=== PATIENT | male | born 1935 | race African-American/Black ===

== ENCOUNTER 2016-04-12 12:54 | Inpatient (IN) | payer MEDICARE, MEDICAID ==
[~2016-04-12] VITALS: Ht 182.9 cm; Wt 81.6 kg
[~2016-04-12 12:54] MED LIST: ALLOPURINOL100 M1 ORAL; ALLOPURINOL300 M1 ORAL; AMANTADINE100 M2 ORAL; AMIODARONE HCL200 MG ORAL; AMPICILLIN250 MG ORAL; ATIVAN0.5 MG ORAL; ATIVAN2 MG/1 ML IV; ATORVASTATIN CA40 MG ORAL; CARDIZEM30 MG ORAL; COUMADIN5 MG ORAL; COUMADIN6 MG ORAL; DIGOXIN0.125 MG/2 ORAL; DILTIAZEM HCL90 MG PO; DOCU SOFT100 MG ORAL; HYDROCHLOROTH12.5 M2 ORAL; KEPPRA1000 MG ORAL; LORAZEPAM2 MG/1 M3 IV; METOPROLOL TAR100 MG ORAL; METOPROLOL TART25 MG ORAL; NITRO-BID1 GM TOPIC; PROTONIX40 MG ORAL; QUETIAPINE FUMA25 MG ORAL; RANITIDINE HCL150 MG ORAL; ROBITUSSIN100 MG/52 ORAL; SENNA8.6 M3 PO; SEROQUEL25 MG ORAL; SYNTHROID100 MCG ORAL; SYNTHROID25 MCG ORAL; ULTRAM50 MG ORAL; VITAMIN D250000 UNI1 ORAL; WARFARIN SODIU7.5 MG ORAL; ZYPREXA10 MG ORAL
--- NOTE | 2016-04-12 13:09 | Emergency Room Report ---
History of Present Illness General Source: Patient Present Illness HPI Patient is a 80-year-old male [facility] in [facility] after increased productive cough. The patient gradual onset of symptoms. Patient was noted to have a prior history of CVA. He was sent in by prison. He reports having gradual onset of symptoms which the subsequently worsened. Allergies: Coded Allergies: MARYANA INHIBITORS (Unverified Allergy, Unknown, 01/31/14) ARB-ANGIOTENSIN RECEPTOR ANTAGONIST (Unverified Allergy, Unknown, 01/31/14) Patient History Past Medical History: see triage record Reviewed Nursing Documentation: PMH: Agreed, PSxH: Agreed Nursing Documentation-PMH Hx Cardiac Problems: Yes - CVA, A. fib. HTN, CHF Hx Hypertension: Yes Hx Cancer: No Hx Gastrointestinal Problems: No Hx Neurological Problems: Yes Hx Cerebrovascular Accident: Yes Hx Dementia: Yes Hx Seizures: Yes Hx Weakness: Yes Review of Systems All Other Systems: limited - by mental status Physical Exam General Appearance: alert, other - GCS 15, [id number], Chronically Ill ENT: hearing 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, other - dysarthric Neck: normal inspection, limited range of motion Respiratory: rhonchi Cardiovascular #1: normal peripheral pulses, regular rate, rhythm Gastrointestinal: normal bowel sounds, non tender, soft, no mass Musculoskeletal: back normal, digits/nails normal Neurologic: alert, oriented x3, responsive, motor weakness - right upper extremity Psychiatric: normal inspection, judgement/insight normal Skin: normal inspection Medical Decision Making Diagnostic Impression: Primary Impression: Pneumonia Additional Impressions: Afib Convulsive generalized seizure disorder ER Course Patient presented for shortness of breath.Differential included but was not limited to anemia, pneumonia, pneumothorax, myocardial infarction, pericardial effusion, congestive heart failure, acidosis. Because of complexity of patient' s case laboratory testing and imaging studies were ordered.A chest x-ray of the facility was noted for bilateral infiltrates. Patient was noted to have prior history of atrial fibrillation was taking digoxin.Laboratory testing was notable for normal white blood count was elevated at the B. type naturetic peptide. The patient appears to have clinical signs of pneumonia. He was started on IV antibiotics.Dr. Geiger was contacted for inpatient management due to need for inpatient monitoring and treatment. Labs Test 04/12/16 13:45 White Blood Count 8.1 K/UL (4.8-10.8) Red Blood Count 4.00 M/UL (4.70-6.10) Hemoglobin 11.1 G/DL (14.2-18.0) Hematocrit 35.3 % (42.0-52.0) Mean Corpuscular Volume 88 FL (80-99) Mean Corpuscular Hemoglobin 27.8 PG (27.0-31.0) Mean Corpuscular Hemoglobin Concent 31.5 G/DL (32.0-36.0) Red Cell Distribution Width 16.0 % (11.6-14.8) Platelet Count 164 K/UL (150-450) Mean Platelet Volume 8.2 FL (6.5-10.1) Neutrophils (%) (Auto) 59.3 % (45.0-75.0) Lymphocytes (%) (Auto) 21.4 % (20.0-45.0) Monocytes (%) (Auto) 16.1 % (1.0-10.0) Eosinophils (%) (Auto) 2.5 % (0.0-3.0) Basophils (%) (Auto) 0.8 % (0.0-2.0) Urine Color Pale yellow Urine Appearance Clear Urine pH 6 (4.5-8.0) Urine Specific [place] 1.015 (1.005-1.035) Urine Protein 2+ (NEGATIVE) Urine Glucose (UA) Negative (NEGATIVE) Urine Ketones Negative (NEGATIVE) Urine Occult Blood 2+ (NEGATIVE) Urine Nitrite Negative (NEGATIVE) Urine Bilirubin Negative (NEGATIVE) Urine Urobilinogen Normal MG/DL (0.0-1.0) Urine Leukocyte Esterase Negative (NEGATIVE) Chest X-Ray Diagnostic Results EP Interpretation: No Findings: no effusion, no pneumothorax, other - bilateral vascular congestion, basilar infiltrate Status: unchanged Disposition: ADMITTED INPATIENT Condition: Herbie Arreguin Apr 12, 2016 13:09
[2016-04-12] MEDS ORDERED: Ampicillin/Sulbactam Sod 3 GM in NS 100 ML IV SCH (13:15)
[2016-04-12] MEDS ORDERED: Unasyn 3gm Inj ONE (13:19)
[2016-04-12 13:48] VITALS: BP 145/86
[2016-04-12 14:01] LABS: BASOPHILS % (AUTO) 0.8 % (0.0-2.0); EOSINOPHILS % (AUTO) 2.5 % (0.0-3.0); LYMPHOCYTES % (AUTO) 21.4 % (20.0-45.0); MEAN CORPUSCULAR HEMOGLOBIN 27.8 PG (27.0-31.0); MEAN CORPUSCULAR HGB CONC 31.5 G/DL (32.0-36.0); MEAN CORPUSCULAR VOLUME 88 FL (80-99); MEAN PLATELET VOLUME 8.2 FL (6.5-10.1); MONOCYTES % (AUTO) 16.1 % (1.0-10.0); NEUTROPHILS % (AUTO) 59.3 % (45.0-75.0); PLATELET COUNT 164 K/UL (150-450); WHITE BLOOD COUNT 8.1 K/UL (4.8-10.8)
[2016-04-12 14:05] LABS: APPEARANCE,URINE CLEAR; KETONES,URINE NEGATIVE (NEGATIVE); LEUKOCYTE ESTERASE ,URINE NEGATIVE (NEGATIVE); NITRITE,URINE NEGATIVE (NEGATIVE); PH,URINE 6 (4.5-8.0); PROTEIN,URINE 2+ (NEGATIVE); UROBILINOGEN,URINE NORMAL MG/DL (0.0-1.0)
[2016-04-12] MEDS ORDERED: NEURONTIN100 MG ORAL (14:16)
[2016-04-12] MEDS ORDERED: GUAIFENESIN-CO118 M1 ORAL (14:16)
[2016-04-12] MEDS ORDERED: NORCO 5-325 TA1 EAC1 ORAL (14:16)
[2016-04-12] MEDS ORDERED: BACTROBAN CR1 APPLIC TOPIC (14:16)
[2016-04-12 14:20] LABS: BACTERIA,URINE OCCASIONAL /HPF; SQUAMOUS EPITHELIAL CELL,UR OCCASIONAL /LPF (NONE/OCC); WBC,URINE 0-2 /HPF (0 - 0)
--- NOTE | 2016-04-12 14:27 | Diagnostic Imaging Report ---
Indications: Shortness of breath Technique: Portal AP chest Findings: Comparison: 05/05/2015 Cardiac silhouette remains enlarged. Mild pulmonary vascular redistribution and bilateral interstitial prominence persists, decreased. No pleural abnormalities. IMPRESSION: Bilateral congestive changes, decreased from previous exam
[2016-04-12 14:28] LABS: TROPONIN I < 0.30 ng/mL (<=0.30)
[2016-04-12 14:29] LABS: INR 3.2 (0.9-1.1)
[2016-04-12 14:32] LABS: ALANINE AMINOTRANSFERASE 12 U/L (3-41); ALBUMIN/GLOBULIN RATIO 0.8 (1.0-2.7); ANION GAP 16 (5-15); ASPARTATE AMINO TRANSFERASE 18 U/L (5-40); CALCIUM 8.9 mg/dL (8.6-10.2); CARBON DIOXIDE 21 mEQ/L (20-30); CHLORIDE 103 mEQ/L (98-107); CREATININE 1.7 mg/dL (0.7-1.2); HEMOLYSIS 3; POTASSIUM 4.6 mEQ/L (3.4-4.9); SODIUM 140 mEQ/L (135-145)
[2016-04-12 14:42] LABS: CKMB 2.9 ng/mL (< 6.7)
[2016-04-12 15:16] VITALS: BP 143/77
--- NOTE | 2016-04-12 15:27 | Consultation ---
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 Will follow ES YAP Apr 12, 2016 15:27
[2016-04-12] MEDS ORDERED: Mylanta II UD 30ml ORAL PRN (15:45)
[2016-04-12] MEDS ORDERED: DuoNeb 0.5-3(2.5)mg/3ml neb HHN PRN (15:45)
[2016-04-12] MEDS ORDERED: traMADol 50mg tab ORAL PRN (15:45)
[2016-04-12] MEDS ORDERED: Miralax 17gm pkt ORAL PRN (15:45)
[2016-04-12] MEDS ORDERED: Nitroglycerin Subl 0.4mg tab (Bottle Of 25) SL PRN (15:45)
--- NOTE | 2016-04-12 15:45 | Consultation ---
History of Present Illness General Date patient seen: Apr 12, 2016 Chief Complaint: General Complaint Referring physician: dr Geiger Reason for Consultation: dyspnea Present Illness HPI 80-year-old male with hx of Dementia, CVA, end stage CHF with EF of 35% and pulmonary hypertension, [facility] resident brought [facility] from [facility] with productive cough. The patient had gradual onset of symptoms. Pt was diagnosed to have pneumonia and admitted for further evaluation. He is admitted to telemetry because of his chronic afib and cardiomyopathy Allergies: Coded Allergies: MARYANA INHIBITORS (Unverified Allergy, Unknown, 01/31/14) ARB-ANGIOTENSIN RECEPTOR ANTAGONIST (Unverified Allergy, Unknown, 01/31/14) Medication History Scheduled Allopurinol* (Allopurinol*), 100 MG ORAL DAILY, (Reported) Digoxin* (Digoxin*), 0.125 MG ORAL DAILY, (Reported) Diltiazem Hcl (Diltiazem Hcl), 90 MG PO Q8HR, (Reported) Docusate Sodium (Docu Soft*), 100 MG ORAL TID, (Reported) Ergocalciferol (Vitamin D2)* (Vitamin D*), 50,000 UNIT ORAL ONCE A WEEK, ( Reported) Gabapentin* (Neurontin*), 300 MG ORAL THREE TIMES A DAY, (Reported) Levetiracetam (Keppra), 1,000 MG ORAL Q12HR, (Reported) Levothyroxine Sodium* (Synthroid*), 100 MCG ORAL DAILY, (Reported) Metoprolol Tartrate* (Metoprolol Tartrate*), 25 MG ORAL BID, (Reported) Mupirocin Calcium (Bactroban), 1 APPLIC TOPIC THREE TIMES A DAY, (Reported) Pantoprazole* (Protonix*), 40 MG ORAL DAILY, (Reported) Warfarin Sod* (Coumadin*), 5 MG ORAL DAILY, (Reported) Scheduled PRN Guaifenesin/Codeine Phos* (Robitussin Ac*), 10 ML ORAL Q6H PRN for For Cough, ( Reported) Hydrocodone Bit/Acetaminophen 5-325* ([place] 5-325 Tablet*), 1 TAB ORAL Q8HR PRN for For Pain, (Reported) Lorazepam* (Ativan*), 1 MG IV Q3HR PRN for Agitation, (Reported) Quetiapine Fumarate* (Seroquel*), 25 MG ORAL Q6HR PRN for Agitation, (Reported) Tramadol Hcl (Ultram*), 25 MG ORAL TID PRN for For Pain, (Reported) Patient History Healthcare decision maker Resuscitation status Advanced Directive on File Past Medical/Surgical History Past Medical/Surgical History: (1) Afib (2) Convulsive generalized seizure disorder (3) Atrial fibrillation with RVR (4) CVA (cerebral infarction) (5) Cardiomyopathy (6) Arterial ischemic stroke, MCA (middle cerebral artery), left, chronic (7) Status epilepticus, generalized convulsive (8) Dementia, vascular Review of Systems All Other Systems: negative except mentioned in HPI Physical Exam General Appearance: WD/WN HEENT: normocephalic, atraumatic Neck: non-tender, normal alignment Respiratory/Chest: chest wall non-tender, rhonchi - left, rhonchi - right Cardiovascular/Chest: normal peripheral pulses, normal rate Abdomen: normal bowel sounds, non tender Extremities: normal range of motion, non-tender Last 24 Hour Vital Signs Date Time Temp Pulse Resp B/P Pulse Ox O2 Delivery O2 Flow Rate FiO2 04/12/16 15:16 98.0 92 21 143/77 100 Room Air 04/12/16 13:48 99.3 88 16 145/86 99 Room Air 04/12/16 13:01 99.3 76 16 140/86 99 Room Air Laboratory Tests Test 04/12/16 13:45 White Blood Count 8.1 K/UL (4.8-10.8) Red Blood Count 4.00 M/UL (4.70-6.10) L Hemoglobin 11.1 G/DL (14.2-18.0) L Hematocrit 35.3 % (42.0-52.0) L Mean Corpuscular Volume 88 FL (80-99) Mean Corpuscular Hemoglobin 27.8 PG (27.0-31.0) Mean Corpuscular Hemoglobin Concent 31.5 G/DL (32.0-36.0) L Red Cell Distribution Width 16.0 % (11.6-14.8) H Platelet Count 164 K/UL (150-450) Mean Platelet Volume 8.2 FL (6.5-10.1) Neutrophils (%) (Auto) 59.3 % (45.0-75.0) Lymphocytes (%) (Auto) 21.4 % (20.0-45.0) Monocytes (%) (Auto) 16.1 % (1.0-10.0) H Eosinophils (%) (Auto) 2.5 % (0.0-3.0) Basophils (%) (Auto) 0.8 % (0.0-2.0) Prothrombin Time 34.0 SEC (9.30-11.50) H Prothromb Time International Ratio 3.2 (0.9-1.1) H Activated Partial Thromboplast Time 58 SEC (23-33) H Urine Color Pale yellow Urine Appearance Clear Urine pH 6 (4.5-8.0) Urine Specific [place] 1.015 (1.005-1.035) Urine Protein 2+ (NEGATIVE) H Urine Glucose (UA) Negative (NEGATIVE) Urine Ketones Negative (NEGATIVE) Urine Occult Blood 2+ (NEGATIVE) H Urine Nitrite Negative (NEGATIVE) Urine Bilirubin Negative (NEGATIVE) Urine Urobilinogen Normal MG/DL (0.0-1.0) Urine Leukocyte Esterase Negative (NEGATIVE) Urine RBC 2-4 /HPF (0 - 0) H Urine WBC 0-2 /HPF (0 - 0) Urine Squamous Epithelial Cells Occasional /LPF Urine Bacteria Occasional /HPF (NONE) Sodium Level 140 mEQ/L (135-145) Potassium Level 4.6 mEQ/L (3.4-4.9) Chloride Level 103 mEQ/L (98-107) Carbon Dioxide Level 21 mEQ/L (20-30) Anion Gap 16 (5-15) H Blood Urea Nitrogen 26 mg/dL (7-23) H Creatinine 1.7 mg/dL (0.7-1.2) H Estimat Glomerular Filtration Rate mL/min (>60) Glucose Level 95 mg/dL (74-106) Lactic Acid Level 0.90 mmol/L (0.66-2.22) Calcium Level 8.9 mg/dL (8.6-10.2) Total Bilirubin 0.4 mg/dL (0.0-1.2) Aspartate Amino Transf (AST/SGOT) 18 U/L (5-40) Alanine Aminotransferase (ALT/SGPT) 12 U/L (3-41) Alkaline Phosphatase 87 U/L (40-129) Total Creatine Kinase 244 U/L (38-174) H Creatine Kinase MB 2.9 ng/mL (< 6.7) Creatine Kinase MB Relative Index 1.1 Troponin I < 0.30 ng/mL (<=0.30) Pro-B-Type Natriuretic Peptide 1796 pg/mL (0-450) H Total Protein 8.0 g/dL (6.6-8.7) Albumin 3.6 g/dL (3.5-5.2) Globulin 4.4 g/dL Albumin/Globulin Ratio 0.8 (1.0-2.7) L Digoxin Level 0.7 ng/mL (0.5-2.0) Microbiology Date/Time Source Procedure Growth Status 04/12/16 13:45 Nasal Nares Influenza Types A,B Antigen (GABINO) - Final Complete Height (Feet): 6 Weight (Pounds): 180 Medications Current Medications Medications (Trade) Dose Ordered Sig/Con Route PRN Reason Start Time Stop Time Status Last Admin Dose Admin Ampicillin Sodium/ Sulbactam Sodium/ Sodium Chloride (Unasyn/Sodium Chloride 100ml bag) 100 ml @ 200 mls/hr Q6H IV 04/12/16 13:15 04/13/16 13:14 04/12/16 13:39 Assessment/Plan Problem List: (1) Pneumonia ICD Codes: J18.9 - Pneumonia, unspecified organism SNOMED: 043919160 (2) Cardiomyopathy ICD Codes: I42.9 - Cardiomyopathy SNOMED: 33151898 (3) Atrial fibrillation with RVR ICD Codes: I48.91 - Unspecified atrial fibrillation SNOMED: 247036673569753 (4) Dementia, vascular ICD Codes: F01.50 - Vascular dementia without behavioral disturbance SNOMED: 953247236 (5) CVA (cerebral infarction) ICD Codes: I63.9 - Cerebral infarction, unspecified SNOMED: 484353796 Assessment/Plan Respiratory treatment holman cultures sputum for c/s cardiac monitoring aspiration precaution cardiac evaluation. check electrolytes chest pt titrate fio2 to sat of 92% [place] RENAE Apr 12, 2016 15:45
[2016-04-12 16:50] VITALS: BP 145/90
[2016-04-12] MEDS: Metoprolol 25mg tab ORAL SCH (18:46)
[2016-04-12] MEDS: Vancomycin 1250mg/D5W 250ml IVPB SCH ×2 (19:27)
[2016-04-12 20:00] VITALS: BP 156/90
--- NOTE | 2016-04-12 21:28 | Consultation ---
DATE OF CONSULTATION: 04/12/2016 INFECTIOUS DISEASE CONSULTATION REQUESTING PHYSICIAN: Ondina Geiger M.D. REASON FOR CONSULTATION: Pneumonia. HISTORY OF PRESENT ILLNESS: This is a 80-year-old male, [facility] resident with multiple medical problems, admitted on 04/12/2016 with cough. The patient states cough is productive of white sputum. Denies fevers or chills. Influenza screen is negative. Chest x-ray shows bilateral congestive changes. He is afebrile without leukocytosis. Blood cultures are pending. BNP is elevated to 1796 and troponin is negative x1. ID now consulted to assist in management. PAST MEDICAL HISTORY: 1. Hypertension. 2. Cardiomyopathy. 3. Vascular dementia. 4. JUANA positive. 5. Chronic kidney disease, stage 3. 6. Seizure disorder. 7. Atrial fibrillation. 8. History of stroke. 9. Anemia of chronic disease. PAST SURGICAL HISTORY: None. SOCIAL HISTORY: The patient is a resident in a penitentiary. He has family involved in his care. No active tobacco, alcohol, or illicit drug abuse. FAMILY HISTORY: Noncontributory. ALLERGIES: 1. MARYANA inhibitors. 2. Angiotensin receptor blockers. MEDICATIONS: Status post Unasyn x1. REVIEW OF SYSTEMS: As per history of present illness. Ten systems reviewed. All pertinent positives and negatives noted. PHYSICAL EXAMINATION: VITAL SIGNS: Maximum temperature 99.3, blood pressure 145/86, heart rate in the 80s, respiratory rate 16, and saturating 99% on room air. GENERAL: No apparent distress, nontoxic appearing. HEENT: Poor dentition. CARDIOVASCULAR: Regular rate and rhythm. No murmurs. PULMONARY: Bilateral crackles. ABDOMEN: Bowel sounds present. Soft, nondistended, and nontender. EXTREMITIES: Bilateral lower extremity edema. LABORATORY DATA: White blood cell count 8.1, hemoglobin 11.1, platelets 164,000. Sodium 140, potassium 4.6, chloride 103, bicarbonate 21, BUN 26, and creatinine 1.7. Lactic acid 0.9. Troponin negative x1. Creatine kinase 244. BNP 1796. Liver function tests within normal limits. Urinalysis negative. Digoxin level within normal limits. MICROBIOLOGY: 1. On 04/12/2016 influenza screen negative. 2. On 04/12/2016 blood culture pending. IMAGING: On 04/12/2016 chest x-ray bilateral congestive changes. ASSESSMENT: 1. Suspect acute on chronic systolic and diastolic congestive heart failure exacerbation more likely than healthcare associated or aspiration pneumonia. He has known nonischemic cardiomyopathy and a chest x-ray shows bilateral congestive changes. Troponin is negative x1. BNP is elevated. Influenza screen is negative. 2. Afebrile without leukocytosis. 3. Vascular dementia and history of stroke. 4. Chronic kidney disease stage 3. 5. Seizure disorder. 6. Atrial fibrillation. 7. History of methicillin-resistant Staphylococcus aureus colonization. 8. Previous DNR. PLAN: 1. Start empiric Zosyn day #1 for now . 2. Diuresis and consider echocardiogram, monitor ins and outs. 3. Monitoring BNP. 4. Follow up cultures. 5. Monitor CBC and temperatures. 6. Monitor BMP. 7. Monitor chest x-ray. Thank you. We will follow. Pankaj Larose M.D. DR: Berna JOB#: [id number] CC: Ondina Geiger M.D.; Fax#: [phone] Davila M.D; Fax#: [phone]
--- NOTE | 2016-04-12 21:47 | Consultation ---
History of Present Illness General Date patient seen: Apr 12, 2015 Chief Complaint: General Complaint Referring physician: dr Geiger Reason for Consultation: dyspnea Present Illness HPI Patient is a 80-year-old male pmhx HTN, CVA and is a [facility] resident. The patient was noticed to have intractable coughing with thick discolored sputum production. Initial radiographic images revealed congestive changes in both lungs. The patient has been initiated on O2 therapy and aspiration precautions are being taken in the context of the patients advanced age and comorbidities. History has been compiled by discussion with the patient internists, unfortunantly patient cannot provide any meaningfull history at this time. Allergies: Coded Allergies: MARYANA INHIBITORS (Unverified Allergy, Unknown, 01/31/14) ARB-ANGIOTENSIN RECEPTOR ANTAGONIST (Unverified Allergy, Unknown, 01/31/14) Medication History Scheduled Allopurinol* (Allopurinol*), 100 MG ORAL DAILY, (Reported) Digoxin* (Digoxin*), 0.125 MG ORAL DAILY, (Reported) Diltiazem Hcl (Diltiazem Hcl), 90 MG PO Q8HR, (Reported) Docusate Sodium (Docu Soft*), 100 MG ORAL TID, (Reported) Ergocalciferol (Vitamin D2)* (Vitamin D*), 50,000 UNIT ORAL ONCE A WEEK, ( Reported) Gabapentin* (Neurontin*), 300 MG ORAL THREE TIMES A DAY, (Reported) Levetiracetam (Keppra), 1,000 MG ORAL Q12HR, (Reported) Levothyroxine Sodium* (Synthroid*), 100 MCG ORAL DAILY, (Reported) Metoprolol Tartrate* (Metoprolol Tartrate*), 25 MG ORAL BID, (Reported) Mupirocin Calcium (Bactroban), 1 APPLIC TOPIC THREE TIMES A DAY, (Reported) Pantoprazole* (Protonix*), 40 MG ORAL DAILY, (Reported) Warfarin Sod* (Coumadin*), 5 MG ORAL DAILY, (Reported) Scheduled PRN Guaifenesin/Codeine Phos* (Robitussin Ac*), 10 ML ORAL Q6H PRN for For Cough, ( Reported) Hydrocodone Bit/Acetaminophen 5-325* ([place] 5-325 Tablet*), 1 TAB ORAL Q8HR PRN for For Pain, (Reported) Lorazepam* (Ativan*), 1 MG IV Q3HR PRN for Agitation, (Reported) Quetiapine Fumarate* (Seroquel*), 25 MG ORAL Q6HR PRN for Agitation, (Reported) Tramadol Hcl (Ultram*), 25 MG ORAL TID PRN for For Pain, (Reported) Patient History Healthcare decision maker Resuscitation status Full Code Advanced Directive on File Review of Systems Constitutional: Reports: chills, fever, malaise, sweats, weakness Respiratory: Reports: HOWARD, cough, shortness of breath, sputum, wheezing Physical Exam General Appearance: no apparent distress, lethargic Lines, tubes and drains: peripheral HEENT: normocephalic, atraumatic, anicteric, PERRL Neck: non-tender, normal alignment, supple Respiratory/Chest: chest wall non-tender, rhonchi - bilaterally, expiratory wheezing Breasts: no masses Cardiovascular/Chest: normal peripheral pulses, normal rate, regular rhythm, no JVD Abdomen: normal bowel sounds, non tender, soft, no organomegaly, no mass Genitourinary/Rectal: normal genital exam, normal rectal exam Extremities: normal range of motion, non-tender, normal inspection, no calf tenderness Skin Exam: normal pigmentation, warm/dry Neurologic: big data lead II-XII 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, no motor/sensory deficits Last 24 Hour Vital Signs Date Time Temp Pulse Resp B/P Pulse Ox O2 Delivery O2 Flow Rate FiO2 04/12/16 20:00 98.2 82 20 156/90 98 Room Air 04/12/16 18:46 78 145/90 04/12/16 16:50 98.2 78 20 145/90 98 Room Air 04/12/16 16:25 98.0 88 21 143/77 100 Room Air 04/12/16 15:16 98.0 92 21 143/77 100 Room Air 04/12/16 13:48 99.3 88 16 145/86 99 Room Air 04/12/16 13:01 99.3 76 16 140/86 99 Room Air Laboratory Tests Test 04/12/16 13:45 White Blood Count 8.1 K/UL (4.8-10.8) Red Blood Count 4.00 M/UL (4.70-6.10) L Hemoglobin 11.1 G/DL (14.2-18.0) L Hematocrit 35.3 % (42.0-52.0) L Mean Corpuscular Volume 88 FL (80-99) Mean Corpuscular Hemoglobin 27.8 PG (27.0-31.0) Mean Corpuscular Hemoglobin Concent 31.5 G/DL (32.0-36.0) L Red Cell Distribution Width 16.0 % (11.6-14.8) H Platelet Count 164 K/UL (150-450) Mean Platelet Volume 8.2 FL (6.5-10.1) Neutrophils (%) (Auto) 59.3 % (45.0-75.0) Lymphocytes (%) (Auto) 21.4 % (20.0-45.0) Monocytes (%) (Auto) 16.1 % (1.0-10.0) H Eosinophils (%) (Auto) 2.5 % (0.0-3.0) Basophils (%) (Auto) 0.8 % (0.0-2.0) Prothrombin Time 34.0 SEC (9.30-11.50) H Prothromb Time International Ratio 3.2 (0.9-1.1) H Activated Partial Thromboplast Time 58 SEC (23-33) H Urine Color Pale yellow Urine Appearance Clear Urine pH 6 (4.5-8.0) Urine Specific [place] 1.015 (1.005-1.035) Urine Protein 2+ (NEGATIVE) H Urine Glucose (UA) Negative (NEGATIVE) Urine Ketones Negative (NEGATIVE) Urine Occult Blood 2+ (NEGATIVE) H Urine Nitrite Negative (NEGATIVE) Urine Bilirubin Negative (NEGATIVE) Urine Urobilinogen Normal MG/DL (0.0-1.0) Urine Leukocyte Esterase Negative (NEGATIVE) Urine RBC 2-4 /HPF (0 - 0) H Urine WBC 0-2 /HPF (0 - 0) Urine Squamous Epithelial Cells Occasional /LPF Urine Bacteria Occasional /HPF (NONE) Sodium Level 140 mEQ/L (135-145) Potassium Level 4.6 mEQ/L (3.4-4.9) Chloride Level 103 mEQ/L (98-107) Carbon Dioxide Level 21 mEQ/L (20-30) Anion Gap 16 (5-15) H Blood Urea Nitrogen 26 mg/dL (7-23) H Creatinine 1.7 mg/dL (0.7-1.2) H Estimat Glomerular Filtration Rate mL/min (>60) Glucose Level 95 mg/dL (74-106) Lactic Acid Level 0.90 mmol/L (0.66-2.22) Calcium Level 8.9 mg/dL (8.6-10.2) Total Bilirubin 0.4 mg/dL (0.0-1.2) Aspartate Amino Transf (AST/SGOT) 18 U/L (5-40) Alanine Aminotransferase (ALT/SGPT) 12 U/L (3-41) Alkaline Phosphatase 87 U/L (40-129) Total Creatine Kinase 244 U/L (38-174) H Creatine Kinase MB 2.9 ng/mL (< 6.7) Creatine Kinase MB Relative Index 1.1 Troponin I < 0.30 ng/mL (<=0.30) Pro-B-Type Natriuretic Peptide 1796 pg/mL (0-450) H Total Protein 8.0 g/dL (6.6-8.7) Albumin 3.6 g/dL (3.5-5.2) Globulin 4.4 g/dL Albumin/Globulin Ratio 0.8 (1.0-2.7) L Digoxin Level 0.7 ng/mL (0.5-2.0) Urine Legionella Antigen Pending Microbiology Date/Time Source Procedure Growth Status 04/12/16 13:45 Nasal Nares Influenza Types A,B Antigen (GABINO) - Final Complete Height (Feet): 6 Height (Inches): 0.00 Weight (Pounds): 180 Medications Current Medications Medications (Trade) Dose Ordered Sig/Con Route PRN Reason Start Time Stop Time Status Last Admin Dose Admin Acetaminophen (Tylenol) 650 mg Q4H PRN ORAL fever 04/12/16 15:45 05/12/16 15:44 Al Hydroxide/Mg Hydroxide (Mylanta II) 30 ml Q6H PRN ORAL dyspepsia 04/12/16 15:45 05/12/16 15:44 Albuterol/ Ipratropium 3 ml 3 ml EVERY 4 HOURS PRN HHN Shortness of Breath 04/12/16 15:45 04/17/16 15:44 Allopurinol (Zyloprim) 100 mg DAILY ORAL 04/13/16 09:00 05/13/16 08:59 Cefepime HCl/ Dextrose (Maxipime/D5W 50ml) 50 ml @ 100 mls/hr Q24H IV 04/12/16 21:00 04/19/16 20:59 Digoxin (Lanoxin) 0.125 mg DAILY ORAL 04/13/16 09:00 05/13/16 08:59 Diltiazem HCl (Cardizem) 90 mg Q8HR ORAL 04/12/16 22:00 05/12/16 21:59 Heparin Sodium (Porcine) (Heparin 5000 units/ml) 5,000 units EVERY 12 HOURS SUBQ 04/12/16 21:00 05/12/16 20:59 Levetiracetam (Keppra) 1,000 mg Q12HR ORAL 04/12/16 21:00 05/12/16 20:59 Levothyroxine Sodium (Synthroid) 100 mcg DAILY@0630 ORAL 04/13/16 06:30 05/13/16 06:29 Metoprolol Tartrate (Lopressor) 25 mg BID ORAL 04/12/16 18:00 05/12/16 17:59 04/12/16 18:46 Nitroglycerin (Ntg) 0.4 mg Q5M PRN SL Prn Chest Pain 04/12/16 15:45 05/12/16 15:44 Ondansetron HCl (Zofran) 4 mg Q6H PRN IVP Nausea & Vomiting 04/12/16 15:45 05/12/16 15:44 Polyethylene Glycol (Miralax) 17 gm DAILYPRN PRN ORAL Constipation 04/12/16 15:45 05/12/16 15:44 Promethazine HCl/ Codeine (Phenergan with Codeine) 5 ml Q4H PRN ORAL For Cough 04/12/16 15:45 05/12/16 15:44 Quetiapine Fumarate (SEROquel) 25 mg Q6HR PRN ORAL Agitation 04/12/16 15:45 05/12/16 15:44 Temazepam (Restoril) 15 mg HSPRN PRN ORAL Insomnia 04/12/16 15:45 04/19/16 15:44 Tramadol HCl (Ultram) 25 mg TID PRN ORAL For Pain 04/12/16 15:45 04/19/16 15:44 Vancomycin HCl 1 ea 1 ea DAILY PRN MISC Per rx protocol 04/12/16 15:45 2/15/17 15:44 Vancomycin HCl/ Dextrose (Vancomycin/D5W 250ml) 275 ml @ 183.333 mls/hr Q24H IVPB 04/12/16 19:00 04/17/16 18:59 04/12/16 19:27 Assessment/Plan Problem List: (1) Sepsis ICD Codes: A41.9 - Sepsis SNOMED: 15713969 (2) Pneumonia ICD Codes: J18.9 - Pneumonia, unspecified organism SNOMED: 538169478 (3) Afib ICD Codes: I48.91 - Afib SNOMED: 29671463 (4) Cardiomyopathy ICD Codes: I42.9 - Cardiomyopathy SNOMED: 94265982 (5) CVA (cerebral infarction) ICD Codes: I63.9 - Cerebral infarction, unspecified SNOMED: 968631771 (6) Dementia, vascular ICD Codes: F01.50 - Vascular dementia without behavioral disturbance SNOMED: 223110327 (7) Atrial fibrillation with RVR ICD Codes: I48.91 - Unspecified atrial fibrillation SNOMED: 799344548381109 Status: stable, progressing Assessment/Plan Respiratory treatment holman cultures sputum for c/s cardiac monitoring aspiration precaution cardiac evaluation. check electrolytes chest pt titrate fio2 to sat of 92% [place] RENAE Apr 12, 2016 21:47
[2016-04-12] MEDS: levETIRAcetam 500mg/5ml Liquid ORAL SCH (21:51)
[2016-04-12] MEDS: Diltiazem 90mg tab ORAL SCH (21:51)
[2016-04-12] MEDS: Heparin 5000 units/ml inj SUBQ SCH (21:52)
[2016-04-12 23:20] VITALS: BP 152/87
[2016-04-13 04:00] VITALS: BP 133/85
[2016-04-13] MEDS: Diltiazem 90mg tab ORAL SCH ×2 (06:24→14:08)
[2016-04-13 07:46] LABS: BASOPHILS % (AUTO) 0.9 % (0.0-2.0); EOSINOPHILS % (AUTO) 3.1 % (0.0-3.0); LYMPHOCYTES % (AUTO) 22.7 % (20.0-45.0); MEAN CORPUSCULAR HEMOGLOBIN 28.5 PG (27.0-31.0); MEAN CORPUSCULAR HGB CONC 32.4 G/DL (32.0-36.0); MEAN CORPUSCULAR VOLUME 88 FL (80-99); MEAN PLATELET VOLUME 7.9 FL (6.5-10.1); MONOCYTES % (AUTO) 14.3 % (1.0-10.0); NEUTROPHILS % (AUTO) 58.9 % (45.0-75.0); PLATELET COUNT 160 K/UL (150-450); RED BLOOD COUNT 3.84 M/UL (4.70-6.10); RED CELL DISTRIBUTION WIDTH 16.2 % (11.6-14.8); WHITE BLOOD COUNT 7.3 K/UL (4.8-10.8)
[2016-04-13 07:57] VITALS: BP 150/98
[2016-04-13 08:03] LABS: ANION GAP 14 (5-15); CALCIUM 8.9 mg/dL (8.6-10.2); CARBON DIOXIDE 22 mEQ/L (20-30); CHLORIDE 104 mEQ/L (98-107); CREATININE 1.5 mg/dL (0.7-1.2); HEMOLYSIS 3; PHOSPHORUS 2.8 mg/dL (2.5-4.8); POTASSIUM 4.2 mEQ/L (3.4-4.9); SODIUM 140 mEQ/L (135-145)
[2016-04-13] MEDS: Metoprolol 25mg tab ORAL SCH ×2 (08:54→18:58)
[2016-04-13] MEDS: Allopurinol 100mg Tab ORAL SCH (08:54)
[2016-04-13] MEDS: levETIRAcetam 500mg/5ml Liquid ORAL SCH ×2 (08:54→22:16)
[2016-04-13] MEDS: Digoxin Elixir 0.125mg ORAL SCH (08:55)
[2016-04-13] MEDS: Heparin 5000 units/ml inj SUBQ SCH (08:56)
--- NOTE | 2016-04-13 09:13 | History & Physical ---
History and Physical History & Physicial patient seen and examined. Dictation completed #[id number] Ondina Geiger MD Apr 13, 2016 09:13
--- NOTE | 2016-04-13 09:16 | General Progress Note ---
Assessment/Plan Status: stable Assessment/Plan 1- HCA-PNA 2- SIRS 3- CM 4- CHF-low ef 5- Afib- controlled rate 6- Dementia 7- GI-DVT prophylaxia Plan: Nephro, Pulmonary, ID and Cardiology services notified and consulted current management Subjective ROS Limited/Unobtainable: Yes Allergies: Coded Allergies: MARYANA INHIBITORS (Unverified Allergy, Unknown, 01/31/14) ARB-ANGIOTENSIN RECEPTOR ANTAGONIST (Unverified Allergy, Unknown, 01/31/14) Objective Last 24 Hour Vital Signs Date Time Temp Pulse Resp B/P Pulse Ox O2 Delivery O2 Flow Rate FiO2 04/13/16 08:55 88 04/13/16 08:54 88 150/98 04/13/16 07:57 97.5 88 20 150/98 99 Room Air 04/13/16 06:24 97 133/85 04/13/16 04:00 98.1 101 20 133/85 98 Room Air 04/13/16 04:00 84 04/13/16 00:00 91 04/12/16 23:20 97.8 87 20 152/87 98 Room Air 04/12/16 21:51 82 156/90 04/12/16 20:00 98.2 82 20 156/90 98 Room Air 04/12/16 20:00 91 04/12/16 18:46 78 145/90 04/12/16 16:50 98.2 78 20 145/90 98 Room Air 04/12/16 16:25 98.0 88 21 143/77 100 Room Air 04/12/16 15:16 98.0 92 21 143/77 100 Room Air 04/12/16 13:48 99.3 88 16 145/86 99 Room Air 04/12/16 13:01 99.3 76 16 140/86 99 Room Air Intake and Output 04/12/16 04/13/16 19:00 07:00 Intake Total 565 ml Output Total 550 ml Balance 15 ml Intake Oral 240 ml IV Total 325 ml Output Urine Total 550 ml # Voids 1 3 Laboratory Tests 04/12/16 13:45: White Blood Count 8.1, Red Blood Count 4.00L, Hemoglobin 11.1L, Hematocrit 35.3L , Mean Corpuscular Volume 88, Mean Corpuscular Hemoglobin 27.8, Mean Corpuscular Hemoglobin Concent 31.5L, Red Cell Distribution Width 16.0H, Platelet Count 164, Mean Platelet Volume 8.2, Neutrophils (%) (Auto) 59.3, Lymphocytes (%) (Auto) 21.4, Monocytes (%) (Auto) 16.1H, Eosinophils (%) (Auto) 2.5, Basophils (%) (Auto) 0.8, Prothrombin Time 34.0H, Prothromb Time International Ratio 3.2H, Activated Partial Thromboplast Time 58H, Urine Color Pale yellow, Urine Appearance Clear, Urine pH 6, Urine Specific [place] 1.015, Urine Protein 2+H, Urine Glucose (UA) Negative, Urine Ketones Negative, Urine Occult Blood 2+H, Urine Nitrite Negative, Urine Bilirubin Negative, Urine Urobilinogen Normal, Urine Leukocyte Esterase Negative, Urine RBC 2-4H, Urine WBC 0-2, Urine Squamous Epithelial Cells Occasional, Urine Bacteria Occasional, Sodium Level 140, Potassium Level 4.6, Chloride Level 103, Carbon Dioxide Level 21, Anion Gap 16H, Blood Urea Nitrogen 26H, Creatinine 1.7H, Estimat Glomerular Filtration Rate , Glucose Level 95, Lactic Acid Level 0.90, Calcium Level 8.9, Total Bilirubin 0.4, Aspartate Amino Transf (AST/SGOT) 18, Alanine Aminotransferase (ALT/SGPT) 12, Alkaline Phosphatase 87, Total Creatine Kinase 244H, Creatine Kinase MB 2.9, Creatine Kinase MB Relative Index 1.1, Troponin I < 0.30, Pro-B-Type Natriuretic Peptide 1796H, Total Protein 8.0, Albumin 3.6, Globulin 4.4, Albumin/Globulin Ratio 0.8L, Digoxin Level 0.7, Urine Legionella Antigen [Pending] 04/13/16 07:10: White Blood Count 7.3, Red Blood Count 3.84L, Hemoglobin 10.9L, Hematocrit 33.8L , Mean Corpuscular Volume 88, Mean Corpuscular Hemoglobin 28.5, Mean Corpuscular Hemoglobin Concent 32.4, Red Cell Distribution Width 16.2H, Platelet Count 160, Mean Platelet Volume 7.9, Neutrophils (%) (Auto) 58.9, Lymphocytes (%) (Auto) 22.7, Monocytes (%) (Auto) 14.3H, Eosinophils (%) (Auto) 3.1H, Basophils (%) (Auto) 0.9, Sodium Level 140, Potassium Level 4.2, Chloride Level 104, Carbon Dioxide Level 22, Anion Gap 14, Blood Urea Nitrogen 24H, Creatinine 1.5H, Estimat Glomerular Filtration Rate , Glucose Level 91, Calcium Level 8.9, Albumin 3.4L, Phosphorus Level 2.8 Height (Feet): 6 Height (Inches): 0.00 Weight (Pounds): 180 General Appearance: no apparent distress EENT: PERRL/EOMI Neck: supple Cardiovascular: normal rate Respiratory/Chest: rhonchi - bilaterally Abdomen: soft Extremities: non-tender, other - Right hemiparesis Neurologic: other - Demented. AOx2. stuttering at baseline Ondina Geiger MD Apr 13, 2016 09:16
--- NOTE | 2016-04-13 11:30 | Pulmonology Progress Note ---
Assessment/Plan Problems: (1) Pneumonia (2) Cardiomyopathy (3) Atrial fibrillation with RVR (4) Dementia, vascular (5) CVA (cerebral infarction) Assessment/Plan lasix 40 q8 hours f/u renal parameters Respiratory treatment holman cultures sputum for c/s, pending cardiac monitoring aspiration precaution cardiac evaluation. check electrolytes chest pt titrate fio2 to sat of 92% Keep in teli Subjective ROS Limited/Unobtainable: No Interval Events: still short of breath, no fever Respiratory: Reports: productive cough, shortness of breath Allergies: Coded Allergies: MARYANA INHIBITORS (Unverified Allergy, Unknown, 01/31/14) ARB-ANGIOTENSIN RECEPTOR ANTAGONIST (Unverified Allergy, Unknown, 01/31/14) Objective Last 24 Hour Vital Signs Date Time Temp Pulse Resp B/P Pulse Ox O2 Delivery O2 Flow Rate FiO2 04/13/16 08:55 88 04/13/16 08:54 88 150/98 04/13/16 08:00 84 04/13/16 07:57 97.5 88 20 150/98 99 Room Air 04/13/16 06:24 97 133/85 04/13/16 04:00 98.1 101 20 133/85 98 Room Air 04/13/16 04:00 84 04/13/16 00:00 91 04/12/16 23:20 97.8 87 20 152/87 98 Room Air 04/12/16 21:51 82 156/90 04/12/16 20:00 98.2 82 20 156/90 98 Room Air 04/12/16 20:00 91 04/12/16 18:46 78 145/90 04/12/16 16:50 98.2 78 20 145/90 98 Room Air 04/12/16 16:25 98.0 88 21 143/77 100 Room Air 04/12/16 15:16 98.0 92 21 143/77 100 Room Air 04/12/16 13:48 99.3 88 16 145/86 99 Room Air 04/12/16 13:01 99.3 76 16 140/86 99 Room Air Intake and Output 04/12/16 04/13/16 19:00 07:00 Intake Total 565 ml Output Total 550 ml Balance 15 ml Intake Oral 240 ml IV Total 325 ml Output Urine Total 550 ml # Voids 1 3 General Appearance: WD/WN HEENT: normocephalic, atraumatic Respiratory/Chest: chest wall non-tender, lungs clear Cardiovascular: normal peripheral pulses, normal rate Abdomen: normal bowel sounds, soft, non tender Extremities: no cyanosis Neurologic/Psychiatric: pharmaceutical engineer II-XII 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, no motor/sensory deficits Microbiology Date/Time Source Procedure Growth Status 04/12/16 13:45 Nasal Nares Influenza Types A,B Antigen (GABINO) - Final Complete Laboratory Tests 04/12/16 13:45: White Blood Count 8.1, Red Blood Count 4.00L, Hemoglobin 11.1L, Hematocrit 35.3L , Mean Corpuscular Volume 88, Mean Corpuscular Hemoglobin 27.8, Mean Corpuscular Hemoglobin Concent 31.5L, Red Cell Distribution Width 16.0H, Platelet Count 164, Mean Platelet Volume 8.2, Neutrophils (%) (Auto) 59.3, Lymphocytes (%) (Auto) 21.4, Monocytes (%) (Auto) 16.1H, Eosinophils (%) (Auto) 2.5, Basophils (%) (Auto) 0.8, Prothrombin Time 34.0H, Prothromb Time International Ratio 3.2H, Activated Partial Thromboplast Time 58H, Urine Color Pale yellow, Urine Appearance Clear, Urine pH 6, Urine Specific [place] 1.015, Urine Protein 2+H, Urine Glucose (UA) Negative, Urine Ketones Negative, Urine Occult Blood 2+H, Urine Nitrite Negative, Urine Bilirubin Negative, Urine Urobilinogen Normal, Urine Leukocyte Esterase Negative, Urine RBC 2-4H, Urine WBC 0-2, Urine Squamous Epithelial Cells Occasional, Urine Bacteria Occasional, Sodium Level 140, Potassium Level 4.6, Chloride Level 103, Carbon Dioxide Level 21, Anion Gap 16H, Blood Urea Nitrogen 26H, Creatinine 1.7H, Estimat Glomerular Filtration Rate , Glucose Level 95, Lactic Acid Level 0.90, Calcium Level 8.9, Total Bilirubin 0.4, Aspartate Amino Transf (AST/SGOT) 18, Alanine Aminotransferase (ALT/SGPT) 12, Alkaline Phosphatase 87, Total Creatine Kinase 244H, Creatine Kinase MB 2.9, Creatine Kinase MB Relative Index 1.1, Troponin I < 0.30, Pro-B-Type Natriuretic Peptide 1796H, Total Protein 8.0, Albumin 3.6, Globulin 4.4, Albumin/Globulin Ratio 0.8L, Digoxin Level 0.7, Urine Legionella Antigen [Pending] 04/13/16 07:10: White Blood Count 7.3, Red Blood Count 3.84L, Hemoglobin 10.9L, Hematocrit 33.8L , Mean Corpuscular Volume 88, Mean Corpuscular Hemoglobin 28.5, Mean Corpuscular Hemoglobin Concent 32.4, Red Cell Distribution Width 16.2H, Platelet Count 160, Mean Platelet Volume 7.9, Neutrophils (%) (Auto) 58.9, Lymphocytes (%) (Auto) 22.7, Monocytes (%) (Auto) 14.3H, Eosinophils (%) (Auto) 3.1H, Basophils (%) (Auto) 0.9, Sodium Level 140, Potassium Level 4.2, Chloride Level 104, Carbon Dioxide Level 22, Anion Gap 14, Blood Urea Nitrogen 24H, Creatinine 1.5H, Estimat Glomerular Filtration Rate , Glucose Level 91, Calcium Level 8.9, Albumin 3.4L, Phosphorus Level 2.8 Current Medications Medications (Trade) Dose Ordered Sig/Con Route PRN Reason Start Time Stop Time Status Last Admin Dose Admin Acetaminophen (Tylenol) 650 mg Q4H PRN ORAL fever 04/12/16 15:45 05/12/16 15:44 Al Hydroxide/Mg Hydroxide (Mylanta II) 30 ml Q6H PRN ORAL dyspepsia 04/12/16 15:45 05/12/16 15:44 Albuterol/ Ipratropium 3 ml 3 ml EVERY 4 HOURS PRN HHN Shortness of Breath 04/12/16 15:45 04/17/16 15:44 Allopurinol (Zyloprim) 100 mg DAILY ORAL 04/13/16 09:00 05/13/16 08:59 04/13/16 08:54 Cefepime HCl/ Dextrose (Maxipime/D5W 50ml) 50 ml @ 100 mls/hr Q24H IV 04/12/16 21:00 04/19/16 20:59 04/12/16 21:51 Digoxin (Lanoxin) 0.125 mg DAILY ORAL 04/13/16 09:00 05/13/16 08:59 04/13/16 08:55 Diltiazem HCl (Cardizem) 90 mg Q8HR ORAL 04/12/16 22:00 05/12/16 21:59 04/13/16 06:24 Heparin Sodium (Porcine) (Heparin 5000 units/ml) 5,000 units EVERY 12 HOURS SUBQ 04/12/16 21:00 05/12/16 20:59 04/13/16 08:56 Levetiracetam (Keppra) 1,000 mg Q12HR ORAL 04/12/16 21:00 05/12/16 20:59 04/13/16 08:54 Levothyroxine Sodium (Synthroid) 100 mcg DAILY@0630 ORAL 04/13/16 06:30 05/13/16 06:29 04/13/16 06:23 Metoprolol Tartrate (Lopressor) 25 mg BID ORAL 04/12/16 18:00 05/12/16 17:59 04/13/16 08:54 Nitroglycerin (Ntg) 0.4 mg Q5M PRN SL Prn Chest Pain 04/12/16 15:45 05/12/16 15:44 Ondansetron HCl (Zofran) 4 mg Q6H PRN IVP Nausea & Vomiting 04/12/16 15:45 05/12/16 15:44 Polyethylene Glycol (Miralax) 17 gm DAILYPRN PRN ORAL Constipation 04/12/16 15:45 05/12/16 15:44 Promethazine HCl/ Codeine (Phenergan with Codeine) 5 ml Q4H PRN ORAL For Cough 04/12/16 15:45 05/12/16 15:44 Quetiapine Fumarate (SEROquel) 25 mg Q6HR PRN ORAL Agitation 04/12/16 15:45 05/12/16 15:44 Temazepam (Restoril) 15 mg HSPRN PRN ORAL Insomnia 04/12/16 15:45 04/19/16 15:44 Tramadol HCl (Ultram) 25 mg TID PRN ORAL For Pain 04/12/16 15:45 04/19/16 15:44 Vancomycin HCl 1 ea 1 ea DAILY PRN MISC Per rx protocol 04/12/16 15:45 05/12/16 15:44 Vancomycin HCl/ Dextrose (Vancomycin/D5W 250ml) 275 ml @ 183.333 mls/hr Q24H IVPB 04/12/16 19:00 04/17/16 18:59 04/12/16 19:27 CAROLINA RENAE Apr 13, 2016 11:30
--- NOTE | 2016-04-13 11:40 | Consultation ---
Consult Note Consult Note asked to eval for renal failure- Patient is a 80-year-old male sent in from residential after increased productive cough. The patient gradual onset of symptoms. Patient was noted to have a prior history of CVA. He was sent in by residential. He reports having gradual onset of symptoms which the subsequently worsened. Allergies: Coded Allergies: MARYANA INHIBITORS (Unverified Allergy, Unknown, 01/31/14) ARB-ANGIOTENSIN RECEPTOR ANTAGONIST (Unverified Allergy, Unknown, 01/31/14) . Assessment/Plan status: Renal failure due to pre renal azotemia due to underlying CHF- others: Pneumonia- SVT , At fib- h/o DVT- on antiCoagulations h/o HypoThyroidism h/o Gout Dementia HTN Plan: Optimize cardiac and pulmonary status monitor renal parameters- avoid nephrotoxics- MARIA M YU Apr 13, 2016 11:40
[2016-04-13 12:09] VITALS: BP 140/80
--- NOTE | 2016-04-13 13:52 | Infectious Diseases Prog Note ---
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 > HCAP, aspiration - h/o ICMO, trop(-) x1, BNP 1796 - CXR: Mild pulmonary vascular redistribution and bilateral interstitial prominence - TTE 05/2014: EF 35-40%, grade I diastolic dysfunction, mod MR, TR, pulmonary HTN - negative: influenza // Afebrile without leukocytosis // Vascular dementia, h/o CVA // CKD3 // Seizure disorder // A-fib // h/o MRSA colonization // Previous DNR PLAN: - continue empiric IV vancomycin, cefepime d# 2 / 5 - diuresis, consider update TTE, monitor I&O, BNP - f/u cultures - monitor CBC, temperatures - monitor BMP - monitor CXR Subjective Allergies: Coded Allergies: MARYANA INHIBITORS (Unverified Allergy, Unknown, 01/31/14) ARB-ANGIOTENSIN RECEPTOR ANTAGONIST (Unverified Allergy, Unknown, 01/31/14) Subjective remains afebrile. breathing improved Objective Vital Signs Last 24 Hour Vital Signs Date Time Temp Pulse Resp B/P Pulse Ox O2 Delivery O2 Flow Rate FiO2 04/13/16 12:09 97.7 78 20 140/80 98 Room Air 04/13/16 08:55 88 04/13/16 08:54 88 150/98 04/13/16 08:00 84 04/13/16 07:57 97.5 88 20 150/98 99 Room Air 04/13/16 06:24 97 133/85 04/13/16 04:00 98.1 101 20 133/85 98 Room Air 04/13/16 04:00 84 04/13/16 00:00 91 04/12/16 23:20 97.8 87 20 152/87 98 Room Air 04/12/16 21:51 82 156/90 04/12/16 20:00 98.2 82 20 156/90 98 Room Air 04/12/16 20:00 91 04/12/16 18:46 78 145/90 04/12/16 16:50 98.2 78 20 145/90 98 Room Air 04/12/16 16:25 98.0 88 21 143/77 100 Room Air 04/12/16 15:16 98.0 92 21 143/77 100 Room Air Height (Feet): 6 Height (Inches): 0.00 Weight (Pounds): 180 General Appearance: no acute distress Respiratory/Chest: no respiratory distress Cardiovascular: normal rate, regular rhythm Abdomen: normal bowel sounds, soft, non tender, non distended Microbiology Date/Time Source Procedure Growth Status 04/12/16 13:45 Nasal Nares Influenza Types A,B Antigen (GABINO) - Final Complete Laboratory Tests Test 04/13/16 07:10 White Blood Count 7.3 K/UL (4.8-10.8) Red Blood Count 3.84 M/UL (4.70-6.10) L Hemoglobin 10.9 G/DL (14.2-18.0) L Hematocrit 33.8 % (42.0-52.0) L Mean Corpuscular Volume 88 FL (80-99) Mean Corpuscular Hemoglobin 28.5 PG (27.0-31.0) Mean Corpuscular Hemoglobin Concent 32.4 G/DL (32.0-36.0) Red Cell Distribution Width 16.2 % (11.6-14.8) H Platelet Count 160 K/UL (150-450) Mean Platelet Volume 7.9 FL (6.5-10.1) Neutrophils (%) (Auto) 58.9 % (45.0-75.0) Lymphocytes (%) (Auto) 22.7 % (20.0-45.0) Monocytes (%) (Auto) 14.3 % (1.0-10.0) H Eosinophils (%) (Auto) 3.1 % (0.0-3.0) H Basophils (%) (Auto) 0.9 % (0.0-2.0) Sodium Level 140 mEQ/L (135-145) Potassium Level 4.2 mEQ/L (3.4-4.9) Chloride Level 104 mEQ/L (98-107) Carbon Dioxide Level 22 mEQ/L (20-30) Anion Gap 14 (5-15) Blood Urea Nitrogen 24 mg/dL (7-23) H Creatinine 1.5 mg/dL (0.7-1.2) H Estimat Glomerular Filtration Rate mL/min (>60) Glucose Level 91 mg/dL (74-106) Calcium Level 8.9 mg/dL (8.6-10.2) Phosphorus Level 2.8 mg/dL (2.5-4.8) Albumin 3.4 g/dL (3.5-5.2) L Current Medications Medications (Trade) Dose Ordered Sig/Con Route PRN Reason Start Time Stop Time Status Last Admin Dose Admin Acetaminophen (Tylenol) 650 mg Q4H PRN ORAL fever 04/12/16 15:45 05/12/16 15:44 Albuterol/ Ipratropium 3 ml 3 ml EVERY 4 HOURS PRN HHN Shortness of Breath 04/12/16 15:45 04/17/16 15:44 Allopurinol (Zyloprim) 100 mg DAILY ORAL 04/13/16 09:00 05/13/16 08:59 04/13/16 08:54 Cefepime HCl/ Dextrose (Maxipime/D5W 50ml) 50 ml @ 100 mls/hr Q24H IV 04/12/16 21:00 04/19/16 20:59 04/12/16 21:51 Digoxin (Lanoxin) 0.125 mg DAILY ORAL 04/13/16 09:00 05/13/16 08:59 04/13/16 08:55 Diltiazem HCl (Cardizem) 90 mg Q8HR ORAL 04/12/16 22:00 05/12/16 21:59 04/13/16 06:24 Furosemide (Lasix) 40 mg EVERY 8 HOURS IV 04/13/16 14:00 05/13/16 13:59 Heparin Sodium (Porcine) (Heparin 5000 units/ml) 5,000 units EVERY 12 HOURS SUBQ 04/12/16 21:00 05/12/16 20:59 04/13/16 08:56 Levetiracetam (Keppra) 1,000 mg Q12HR ORAL 04/12/16 21:00 05/12/16 20:59 04/13/16 08:54 Levothyroxine Sodium (Synthroid) 100 mcg DAILY@0630 ORAL 04/13/16 06:30 05/13/16 06:29 04/13/16 06:23 Metoprolol Tartrate (Lopressor) 25 mg BID ORAL 04/12/16 18:00 05/12/16 17:59 04/13/16 08:54 Nitroglycerin (Ntg) 0.4 mg Q5M PRN SL Prn Chest Pain 04/12/16 15:45 05/12/16 15:44 Ondansetron HCl (Zofran) 4 mg Q6H PRN IVP Nausea & Vomiting 04/12/16 15:45 05/12/16 15:44 Polyethylene Glycol (Miralax) 17 gm DAILYPRN PRN ORAL Constipation 04/12/16 15:45 05/12/16 15:44 Promethazine HCl/ Codeine (Phenergan with Codeine) 5 ml Q4H PRN ORAL For Cough 04/12/16 15:45 05/12/16 15:44 Quetiapine Fumarate (SEROquel) 25 mg Q6HR PRN ORAL Agitation 04/12/16 15:45 05/12/16 15:44 Temazepam (Restoril) 15 mg HSPRN PRN ORAL Insomnia 04/12/16 15:45 04/19/16 15:44 Tramadol HCl (Ultram) 25 mg TID PRN ORAL For Pain 04/12/16 15:45 04/19/16 15:44 Vancomycin HCl 1 ea 1 ea DAILY PRN MISC Per rx protocol 04/12/16 15:45 05/12/16 15:44 Vancomycin HCl/ Dextrose (Vancomycin/D5W 250ml) 275 ml @ 183.333 mls/hr Q24H IVPB 04/12/16 19:00 04/17/16 18:59 04/12/16 19:27 ES YAP Apr 13, 2016 13:52
--- NOTE | 2016-04-13 15:27 | History and Physical Report ---
DATE OF ADMISSION: 04/12/2016 SOURCE OF INFORMATION: The patient and EMR. HISTORY OF PRESENT ILLNESS: The patient is a pleasant 80-year-old, male with a prior history of cardiomyopathy, thyroid disorder, and prior CVA, who presented with increasing cough. The patient is status post antibiotic treatment in the retirement with not favorable response to the treatment. The patient's initial chest x-ray showed nonspecific changes with no gross evidence of the pneumonia. He was sent to the hospital for additional evaluation. PAST MEDICAL HISTORY: Including chronic kidney disease, CVA with right hemiparesis, chronic kidney disease, cardiomyopathy with ejection fraction less than 25%, atrial fibrillation, and neuropathic pain. PAST SURGICAL HISTORY: Denies. MEDICATIONS: Outpatient medications including albuterol, allopurinol, digoxin, diltiazem, levothyroxine, Keppra, metoprolol, Seroquel, and warfarin. Hospital medications are reviewed and reconciled in the chart including cefepime and vancomycin. ALLERGIES: MARYANA inhibitors and angiotensin-receptor blockers. SOCIAL HISTORY: The patient currently lives with longterm facility. No documented history of illicit drug abuse, smoking or alcohol abuse. FAMILY HISTORY: Reviewed and noncontributory. PHYSICAL EXAMINATION: VITAL SIGNS: Blood pressure 140/80, temperature 98.2 degrees, pulse oximetry 99% on room air, respiratory rate 18, and pulse rate 76. HEAD AND NECK: Atraumatic and normocephalic. LUNGS: Clear to auscultation. HEART: S1 and S2. Regular rate and rhythm. Positive for extra beats. Positive for the muffled cardiac sound. CHEST: Bronchial breathing sounds. No wheezing. ABDOMEN: Soft. No organomegaly. MUSCULOSKELETAL: Positive for right-sided hemiparesis. NEUROLOGY: The patient is a awake. Demented. Stuttering at baseline. LABORATORY AND DIAGNOSTIC DATA: Lab results on 04/12/2016, including WBC 8.1, hemoglobin 11.1, and platelets 164,000. Sodium 140, potassium 4.6, BUN 26, and creatinine 1.7. Creatine kinase 244. BNP 1800. Urinalysis unremarkable for gross evidence of infection. INR is 3.2. Chest x-ray, dated 04/12/2016 showed bilateral interstitial findings. ASSESSMENT AND PLAN: 1. Systemic inflammatory response syndrome. 2. Healthcare-associated interstitial pneumonia. 3. Cardiomyopathy. 4. Atrial fibrillation, controlled rate. 5. Gout, stable. 6. Acute on chronic renal failure. 7. 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 8. Chronic obstructive pulmonary disease. 9. Neuropathic pain. 10. Anticoagulation. PLAN OF CARE: We will continue with the IV antibiotic to cover the healthcare associated bacteria. Nephrology, Pulmonary, and Cardiology services have been consulted and notified. Ondina Geiger M.D. DR: Kymberly JOB#: [id number] CC:
[2016-04-13 16:00] VITALS: BP 133/76
--- NOTE | 2016-04-13 18:53 | Consultation ---
Consult Note Consult Note Cardiology/EP for Dr. Alexander full note dictated [id number] DESIREE ROMERO Apr 13, 2016 18:53
[2016-04-13] MEDS: Vancomycin 1250mg/D5W 250ml IVPB SCH ×2 (18:58)
[2016-04-13 20:00] VITALS: BP 143/77
[2016-04-13 21:25] LABS: PROTHROMBIN TIME 31.9 SEC (9.30-11.50)
[2016-04-13] MEDS: HydrALAZINE 25mg tab ORAL SCH (22:17)
[2016-04-13] MEDS ORDERED: Warfarin Sodium 4mg PO ONE (22:30)
[2016-04-14 00:18] VITALS: BP 129/77
--- NOTE | 2016-04-14 00:57 | Consultation ---
DATE OF CONSULTATION: REASON FOR CONSULT: Atrial fibrillation and cardiomyopathy. HISTORY OF PRESENT ILLNESS: The patient is a 80-year-old man with a history of hypertension, atrial fibrillation possibly permanent, remote history of CVA two years ago with residual mild dysarthria and right hemiparesis as well as history of cardiomyopathy. He was at the rehab center and noted to have increasing cough with yellowish sputum. Oral antibiotics were tried, but did not improve his symptoms. He was referred for admission. He denied fever, chills, sweats, chest pain, or dyspnea. His evaluation in the emergency room included chest x-ray, which did not show a definite infiltrate. White blood count which was 8100. Natriuretic peptide which was elevated at 1796 and troponin which was negative at less than 0.3. Cardiology evaluation was requested. Per the notes, the patient has a cardiomyopathy with ejection fraction less than 25%. He is unaware of history of heart failure and denies previous angina or myocardial infarction. PAST MEDICAL HISTORY: As noted above. Also history of chronic kidney disease. MEDICATIONS: Lasix 40 mg IV every eight hours, digoxin 0.125 mg daily, diltiazem 90 mg every 8 hours, subcutaneous heparin 5000 units q.12 hours, Keppra 1000 mg q.12 hours, cefepime 1 g IV q.24 hours, vancomycin 1.25 g IV every 24 hours, metoprolol 25 mg b.i.d., Seroquel 25 mg p.o. every 6 hours p.r.n., Tylenol p.r.n., MiraLAX p.r.n., and sublingual nitroglycerin p.r.n. ALLERGIES: MARYANA inhibitors and angiotensin receptor blockers (uncertain effect). SOCIAL HISTORY: The patient resides in a convalescent facility. He has no history of tobacco or alcohol abuse. PHYSICAL EXAMINATION: VITAL SIGNS: Blood pressure is 133/76, pulse 84, irregularly irregular, respirations 20, and afebrile. GENERAL: The patient is alert and well-developed male, in no acute distress. Mild dysarthria. HEENT: Normocephalic and atraumatic. Pupils are equal, round, and reactive to light. Oral mucosa are moist. NECK: Supple. There is no jugular venous distention. No carotid bruits. LUNGS: Clear to auscultation bilaterally. HEART: Irregularly irregular. S1-S2. No murmur or S3. ABDOMEN: Soft and nontender. No organomegaly. EXTREMITIES: No cyanosis, clubbing, or edema. NEUROLOGIC: The patient is alert and oriented. There is mild dysarthria. There is a right hemiparesis with 1/5 motor of the right upper extremity and 2 to 3/5 motor of the right lower extremity versus left. LABORATORY DATA: INR 3.2. Hemoglobin 10.9, white blood count 7300, and platelets 160,000. Sodium 140, potassium 4.2, chloride 104, bicarb 22, BUN 24, and creatinine 1.5. Digoxin 0.7. EKG is pending. Telemetry strips, however, show atrial fibrillation with controlled ventricular rate. Chest x-ray shows cardiomegaly, mild pulmonary vascular congestion. No definite infiltrates. PLAN AND ASSESSMENT: The patient is a 80-year-old man with multiple chronic medical problems who is admitted with a cough productive of yellowish sputum over the past few days, which did not respond to oral antibiotics. He likely has either bronchitis versus pneumonia. He is noted to have renal insufficiency with creatinine on admission 1.7 currently 1.5 possible component of prerenal azotemia. With regard to his cardiac condition, he is in atrial fibrillation with controlled ventricular rate and is anticoagulated with warfarin with INR currently just above therapeutic level. He will be placed on warfarin per pharmacy. I would continue beta-blockers and would consider stopping Cardizem if he has left ventricular dysfunction with ejection fraction in the 20s as this may worsen congestive heart failure. I would use beta-blockers and digoxin for ventricular rate control and atrial fibrillation. We will also attempt to determine the nature of his allergy to MARYANA inhibitors and ARB to maintain INR between 2 and 3. I would favor continuing metoprolol and digoxin for rate control and consider stopping diltiazem if he has significant left ventricular systolic dysfunction as this may worsen heart failure due to negative inotropic effect. We will also obtain an echo to re-evaluate left ventricular function. Further recommendations for his treatment will be made following the results of the echo and his clinical course. He does not currently appear with significant pulmonary vascular congestion. Brenda Gomez M.D. DR: Ayden JOB#: [id number] CC:
[2016-04-14 04:12] VITALS: BP 134/76
[2016-04-14] MEDS: HydrALAZINE 25mg tab ORAL SCH ×3 (05:20→21:15)
[2016-04-14] MEDS: Digoxin Elixir 0.125mg ORAL SCH (06:26)
[2016-04-14 08:15] VITALS: BP 145/58
[2016-04-14] MEDS: levETIRAcetam 500mg/5ml Liquid ORAL SCH ×2 (08:26→21:14)
[2016-04-14] MEDS: Metoprolol 25mg tab ORAL SCH ×2 (08:26→17:24)
[2016-04-14] MEDS: Allopurinol 100mg Tab ORAL SCH (08:26)
[2016-04-14 08:29] LABS: BASOPHILS % (AUTO) 0.9 % (0.0-2.0); EOSINOPHILS % (AUTO) 2.6 % (0.0-3.0); LYMPHOCYTES % (AUTO) 27.8 % (20.0-45.0); MEAN CORPUSCULAR HEMOGLOBIN 28.3 PG (27.0-31.0); MEAN CORPUSCULAR VOLUME 88 FL (80-99); MEAN PLATELET VOLUME 7.9 FL (6.5-10.1); MONOCYTES % (AUTO) 15.4 % (1.0-10.0); NEUTROPHILS % (AUTO) 53.3 % (45.0-75.0); PLATELET COUNT 185 K/UL (150-450); RED BLOOD COUNT 3.82 M/UL (4.70-6.10); RED CELL DISTRIBUTION WIDTH 15.9 % (11.6-14.8); WHITE BLOOD COUNT 8.4 K/UL (4.8-10.8)
[2016-04-14 08:36] LABS: INR 2.7 (0.9-1.1); PROTHROMBIN TIME 28.1 SEC (9.30-11.50)
[2016-04-14 08:47] LABS: THYROID STIMULATING HORMONE 0.663 uIU/mL (0.300-4.500)
[2016-04-14 08:49] LABS: ALANINE AMINOTRANSFERASE 11 U/L (3-41); ALBUMIN/GLOBULIN RATIO 0.8 (1.0-2.7); ANION GAP 20 (5-15); ASPARTATE AMINO TRANSFERASE 20 U/L (5-40); CALCIUM 8.9 mg/dL (8.6-10.2); CARBON DIOXIDE 20 mEQ/L (20-30); CHLORIDE 102 mEQ/L (98-107); CHOLESTEROL 173 mg/dL (< 200); CHOLESTEROL/HDL RATIO 3.5 (3.3-4.4); CREATININE 2.1 mg/dL (0.7-1.2); CRP QUANT 8.8 mg/dL (< 0.5); HEMOLYSIS 14; LDL CHOLESTEROL (CALC.) 111 mg/dL (60-99); MAGNESIUM 1.5 mg/dL (1.7-2.5); PHOSPHORUS 3.1 mg/dL (2.5-4.8); POTASSIUM 4.1 mEQ/L (3.4-4.9); SODIUM 142 mEQ/L (135-145); TOTAL PROTEIN 7.7 g/dL (6.6-8.7); URIC ACID 5.7 mg/dL (3.0-7.5)
[2016-04-14 09:16] LABS: HEMOGLOBIN A1C 6.1 % (< 6.0)
--- NOTE | 2016-04-14 09:16 | General Progress Note ---
Assessment/Plan Assessment/Plan 1. Systemic inflammatory response syndrome. 2. Healthcare-associated interstitial pneumonia. 3. Cardiomyopathy. 4. Atrial fibrillation, controlled rate. 5. Gout, stable. 6. Acute on chronic renal failure. 7. 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 8. Chronic obstructive pulmonary disease. 9. Neuropathic pain. 10. Anticoagulation. Plan: Nephro, Pulmonary, ID and Cardiology notes are reviewd current management Subjective ROS Limited/Unobtainable: No HEENT: Reports: no symptoms Respiratory: Reports: cough Neurologic/Psychiatric: Reports: no symptoms Allergies: Coded Allergies: MARYANA INHIBITORS (Unverified Allergy, Unknown, 01/31/14) ARB-ANGIOTENSIN RECEPTOR ANTAGONIST (Unverified Allergy, Unknown, 01/31/14) Objective Last 24 Hour Vital Signs Date Time Temp Pulse Resp B/P Pulse Ox O2 Delivery O2 Flow Rate FiO2 04/14/16 08:26 128 145/58 04/14/16 08:15 97.3 128 20 145/58 98 Room Air 04/14/16 07:07 162 134/76 04/14/16 06:26 162 04/14/16 05:20 134/76 04/14/16 05:20 134/76 04/14/16 04:12 98.3 62 20 134/76 94 Room Air 04/14/16 04:00 123 04/14/16 00:18 98.8 83 21 129/77 96 Room Air 04/14/16 00:00 104 04/13/16 22:17 143/77 04/13/16 22:16 143/77 04/13/16 20:00 81 04/13/16 20:00 98.2 86 18 143/77 99 Room Air 04/13/16 18:58 84 133/76 04/13/16 16:00 98.2 84 20 133/76 96 Room Air 04/13/16 16:00 93 04/13/16 14:08 78 140/80 04/13/16 12:09 97.7 78 20 140/80 98 Room Air Intake and Output 04/13/16 04/14/16 19:00 07:00 Intake Total 120 ml 325 ml Output Total 500 ml 700 ml Balance -380 ml -375 ml Intake Oral 120 ml IV Total 325 ml Output Urine Total 500 ml 700 ml Laboratory Tests 04/13/16 20:30: Prothrombin Time 31.9H, Prothromb Time International Ratio 3.0H 04/14/16 07:30: Prothrombin Time 28.1H, Prothromb Time International Ratio 2.7H, White Blood Count 8.4, Red Blood Count 3.82L, Hemoglobin 10.8L, Hematocrit 33.8L, Mean Corpuscular Volume 88, Mean Corpuscular Hemoglobin 28.3, Mean Corpuscular Hemoglobin Concent 32.0, Red Cell Distribution Width 15.9H, Platelet Count 185, Mean Platelet Volume 7.9, Neutrophils (%) (Auto) 53.3, Lymphocytes (%) (Auto) 27.8, Monocytes (%) (Auto) 15.4H, Eosinophils (%) (Auto) 2.6, Basophils (%) ( Auto) 0.9, Sodium Level 142, Potassium Level 4.1, Chloride Level 102, Carbon Dioxide Level 20, Anion Gap 20H, Blood Urea Nitrogen 31H, Creatinine 2.1H, Estimat Glomerular Filtration Rate , Glucose Level 119H, Hemoglobin A1c [Pending ], Uric Acid 5.7, Calcium Level 8.9, Phosphorus Level 3.1, Magnesium Level 1.5L , Total Bilirubin 0.4, Gamma Glutamyl Transpeptidase 124H, Aspartate Amino Transf (AST/SGOT) 20, Alanine Aminotransferase (ALT/SGPT) 11, Alkaline Phosphatase 86, C-Reactive Protein, Quantitative 8.8H, Pro-B-Type Natriuretic Peptide 3280H, Total Protein 7.7, Albumin 3.6, Globulin 4.1, Albumin/Globulin Ratio 0.8L, Triglycerides Level 67, Cholesterol Level 173, LDL Cholesterol 111H , HDL Cholesterol 49, Cholesterol/HDL Ratio 3.5, Vitamin B12 Level [Pending], Folate [Pending], Thyroid Stimulating Hormone (TSH) 0.663 Height (Feet): 6 Height (Inches): 0.00 Weight (Pounds): 180 General Appearance: WD/WN EENT: PERRL/EOMI Neck: supple Cardiovascular: arrhythmia Respiratory/Chest: lungs clear Abdomen: soft Extremities: other - right hemipelgia Neurologic: disoriented, other - demented. At base line Ondina Geiger MD Apr 14, 2016 09:16
--- NOTE | 2016-04-14 11:32 | Cardiac Electrophysiology PN ---
Assessment/Plan Status: stable, unchanged Status Narrative Mr Tate had rapid AF this am, after stopping diltiazem (due to hx of severe LV dysfunction, to avoid addl neg inotropic effects) He is now w/ rate-controlled afib, after restarting. Renal function worse - ? pre renal due to diuretics Assessment/Plan restart diltiazem for rate control, in AF, in addition to metoprolol and digoxin Continue warfarin - INR therapeutic Will stop lasix, as may be vol depleted. repeat labs in am Rx of cough, bronchitis v pneumonia per primary MD Subjective ROS Limited/Unobtainable: No Subjective No c/o chest pain, palpitations or dyspnea Events noted Objective Last 24 Hour Vital Signs Date Time Temp Pulse Resp B/P Pulse Ox O2 Delivery O2 Flow Rate FiO2 04/14/16 08:26 128 145/58 04/14/16 08:15 97.3 128 20 145/58 98 Room Air 04/14/16 08:00 141 04/14/16 07:07 162 134/76 04/14/16 06:26 162 04/14/16 05:20 134/76 04/14/16 05:20 134/76 04/14/16 04:12 98.3 62 20 134/76 94 Room Air 04/14/16 04:00 123 04/14/16 00:18 98.8 83 21 129/77 96 Room Air 04/14/16 00:00 104 04/13/16 22:17 143/77 04/13/16 22:16 143/77 04/13/16 20:00 81 04/13/16 20:00 98.2 86 18 143/77 99 Room Air 04/13/16 18:58 84 133/76 04/13/16 16:00 98.2 84 20 133/76 96 Room Air 04/13/16 16:00 93 04/13/16 14:08 78 140/80 04/13/16 12:09 97.7 78 20 140/80 98 Room Air General Appearance: WD/WN, no apparent distress, alert EENT: pharynx normal Neck: supple, no JVD Rhythm: Afib Cardiovascular: no gallop/murmur, irregularly irregular Respiratory/Chest: other - few rhonchi at bases bilat Abdomen: non tender, soft Extremities: no swelling Intake and Output 04/13/16 04/14/16 19:00 07:00 Intake Total 120 ml 325 ml Output Total 500 ml 700 ml Balance -380 ml -375 ml Intake Oral 120 ml IV Total 325 ml Output Urine Total 500 ml 700 ml Laboratory Tests Test 04/13/16 20:30 04/14/16 07:30 Prothrombin Time 31.9 SEC (9.30-11.50) H 28.1 SEC (9.30-11.50) H Prothromb Time International Ratio 3.0 (0.9-1.1) H 2.7 (0.9-1.1) H White Blood Count 8.4 K/UL (4.8-10.8) Red Blood Count 3.82 M/UL (4.70-6.10) L Hemoglobin 10.8 G/DL (14.2-18.0) L Hematocrit 33.8 % (42.0-52.0) L Mean Corpuscular Volume 88 FL (80-99) Mean Corpuscular Hemoglobin 28.3 PG (27.0-31.0) Mean Corpuscular Hemoglobin Concent 32.0 G/DL (32.0-36.0) Red Cell Distribution Width 15.9 % (11.6-14.8) H Platelet Count 185 K/UL (150-450) Mean Platelet Volume 7.9 FL (6.5-10.1) Neutrophils (%) (Auto) 53.3 % (45.0-75.0) Lymphocytes (%) (Auto) 27.8 % (20.0-45.0) Monocytes (%) (Auto) 15.4 % (1.0-10.0) H Eosinophils (%) (Auto) 2.6 % (0.0-3.0) Basophils (%) (Auto) 0.9 % (0.0-2.0) Sodium Level 142 mEQ/L (135-145) Potassium Level 4.1 mEQ/L (3.4-4.9) Chloride Level 102 mEQ/L (98-107) Carbon Dioxide Level 20 mEQ/L (20-30) Anion Gap 20 (5-15) H Blood Urea Nitrogen 31 mg/dL (7-23) H Creatinine 2.1 mg/dL (0.7-1.2) H Estimat Glomerular Filtration Rate mL/min (>60) Glucose Level 119 mg/dL (74-106) H Hemoglobin A1c 6.1 % (< 6.0) H Uric Acid 5.7 mg/dL (3.0-7.5) Calcium Level 8.9 mg/dL (8.6-10.2) Phosphorus Level 3.1 mg/dL (2.5-4.8) Magnesium Level 1.5 mg/dL (1.7-2.5) L Total Bilirubin 0.4 mg/dL (0.0-1.2) Gamma Glutamyl Transpeptidase 124 U/L (8-61) H Aspartate Amino Transf (AST/SGOT) 20 U/L (5-40) Alanine Aminotransferase (ALT/SGPT) 11 U/L (3-41) Alkaline Phosphatase 86 U/L (40-129) C-Reactive Protein, Quantitative 8.8 mg/dL (< 0.5) H Pro-B-Type Natriuretic Peptide 3280 pg/mL (0-450) H Total Protein 7.7 g/dL (6.6-8.7) Albumin 3.6 g/dL (3.5-5.2) Globulin 4.1 g/dL Albumin/Globulin Ratio 0.8 (1.0-2.7) L Triglycerides Level 67 mg/dL (< 150) Cholesterol Level 173 mg/dL (< 200) LDL Cholesterol 111 mg/dL (60-99) H HDL Cholesterol 49 mg/dL (> 60) Cholesterol/HDL Ratio 3.5 (3.3-4.4) Vitamin B12 Level 1042 pg/mL (211-946) H Folate Pending Thyroid Stimulating Hormone (TSH) 0.663 uIU/mL (0.300-4.500) Microbiology Date/Time Source Procedure Growth Status 04/12/16 13:45 Blood Blood Culture - Preliminary NO GROWTH AFTER 24 HOURS Resulted 04/12/16 13:45 Blood Blood Culture - Preliminary NO GROWTH AFTER 24 HOURS Resulted 04/12/16 21:30 Sputum Gram Stain - Final Resulted 04/12/16 21:30 Sputum Sputum Culture Pending Resulted 04/12/16 13:45 Nasal Nares Influenza Types A,B Antigen (GABINO) - Final Complete DESIREE ROMERO Apr 14, 2016 11:32
[2016-04-14 12:00] VITALS: BP 124/66
--- NOTE | 2016-04-14 12:45 | Pulmonology Progress Note ---
Assessment/Plan Problems: (1) Pneumonia (2) Cardiomyopathy (3) Atrial fibrillation with RVR (4) Dementia, vascular (5) CVA (cerebral infarction) Assessment/Plan lasix was stopped f/u renal parameters, worse today Respiratory treatment holman cultures sputum for c/s, negative cardiac monitoring aspiration precaution cardiac evaluation by Dr. Bonilla appreciated check electrolytes chest pt titrate fio2 to sat of 92% Keep in teli Subjective ROS Limited/Unobtainable: No Interval Events: less short of breath, episodes of rapid afib this am Allergies: Coded Allergies: MARYANA INHIBITORS (Unverified Allergy, Unknown, 01/31/14) ARB-ANGIOTENSIN RECEPTOR ANTAGONIST (Unverified Allergy, Unknown, 01/31/14) Objective Last 24 Hour Vital Signs Date Time Temp Pulse Resp B/P Pulse Ox O2 Delivery O2 Flow Rate FiO2 04/14/16 12:17 77 124/66 04/14/16 08:26 128 145/58 04/14/16 08:15 97.3 128 20 145/58 98 Room Air 04/14/16 08:00 141 04/14/16 07:07 162 134/76 04/14/16 06:26 162 04/14/16 05:20 134/76 04/14/16 05:20 134/76 04/14/16 04:12 98.3 62 20 134/76 94 Room Air 04/14/16 04:00 123 04/14/16 00:18 98.8 83 21 129/77 96 Room Air 04/14/16 00:00 104 04/13/16 22:17 143/77 04/13/16 22:16 143/77 04/13/16 20:00 81 04/13/16 20:00 98.2 86 18 143/77 99 Room Air 04/13/16 18:58 84 133/76 04/13/16 16:00 98.2 84 20 133/76 96 Room Air 04/13/16 16:00 93 04/13/16 14:08 78 140/80 Intake and Output 04/13/16 04/14/16 19:00 07:00 Intake Total 120 ml 325 ml Output Total 500 ml 700 ml Balance -380 ml -375 ml Intake Oral 120 ml IV Total 325 ml Output Urine Total 500 ml 700 ml General Appearance: WD/WN HEENT: normocephalic, anicteric Respiratory/Chest: chest wall non-tender, normal breath sounds Cardiovascular: normal peripheral pulses, regular rhythm Abdomen: normal bowel sounds, soft, non tender Extremities: no cyanosis Neurologic/Psychiatric: finishing trimmer II-XII 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 Microbiology Date/Time Source Procedure Growth Status 04/12/16 13:45 Blood Blood Culture - Preliminary NO GROWTH AFTER 24 HOURS Resulted 04/12/16 13:45 Blood Blood Culture - Preliminary NO GROWTH AFTER 24 HOURS Resulted 04/12/16 21:30 Sputum Gram Stain - Final Resulted 04/12/16 21:30 Sputum Sputum Culture Pending Resulted 04/12/16 13:45 Nasal Nares Influenza Types A,B Antigen (GABINO) - Final Complete Laboratory Tests 04/13/16 20:30: Prothrombin Time 31.9H, Prothromb Time International Ratio 3.0H 04/14/16 07:30: Prothrombin Time 28.1H, Prothromb Time International Ratio 2.7H, White Blood Count 8.4, Red Blood Count 3.82L, Hemoglobin 10.8L, Hematocrit 33.8L, Mean Corpuscular Volume 88, Mean Corpuscular Hemoglobin 28.3, Mean Corpuscular Hemoglobin Concent 32.0, Red Cell Distribution Width 15.9H, Platelet Count 185, Mean Platelet Volume 7.9, Neutrophils (%) (Auto) 53.3, Lymphocytes (%) (Auto) 27.8, Monocytes (%) (Auto) 15.4H, Eosinophils (%) (Auto) 2.6, Basophils (%) ( Auto) 0.9, Sodium Level 142, Potassium Level 4.1, Chloride Level 102, Carbon Dioxide Level 20, Anion Gap 20H, Blood Urea Nitrogen 31H, Creatinine 2.1H, Estimat Glomerular Filtration Rate , Glucose Level 119H, Hemoglobin A1c 6.1H, Uric Acid 5.7, Calcium Level 8.9, Phosphorus Level 3.1, Magnesium Level 1.5L, Total Bilirubin 0.4, Gamma Glutamyl Transpeptidase 124H, Aspartate Amino Transf (AST/SGOT) 20, Alanine Aminotransferase (ALT/SGPT) 11, Alkaline Phosphatase 86, C-Reactive Protein, Quantitative 8.8H, Pro-B-Type Natriuretic Peptide 3280H, Total Protein 7.7, Albumin 3.6, Globulin 4.1, Albumin/Globulin Ratio 0.8L, Triglycerides Level 67, Cholesterol Level 173, LDL Cholesterol 111H, HDL Cholesterol 49, Cholesterol/HDL Ratio 3.5, Vitamin B12 Level 1042H, Folate [ Pending], Thyroid Stimulating Hormone (TSH) 0.663 Current Medications Medications (Trade) Dose Ordered Sig/Con Route PRN Reason Start Time Stop Time Status Last Admin Dose Admin Acetaminophen (Tylenol) 650 mg Q4H PRN ORAL fever 04/12/16 15:45 05/12/16 15:44 Albuterol/ Ipratropium 3 ml 3 ml EVERY 4 HOURS PRN HHN Shortness of Breath 04/12/16 15:45 04/17/16 15:44 Allopurinol (Zyloprim) 100 mg DAILY ORAL 04/13/16 09:00 05/13/16 08:59 04/14/16 08:26 Cefepime HCl/ Dextrose (Maxipime/D5W 50ml) 50 ml @ 100 mls/hr Q24H IV 04/12/16 21:00 04/19/16 20:59 04/13/16 22:17 Digoxin (Lanoxin) 0.125 mg DAILY ORAL 04/13/16 09:00 05/13/16 08:59 04/14/16 06:26 Diltiazem HCl (Cardizem) 60 mg EVERY 6 HOURS ORAL 04/14/16 07:00 05/14/16 06:59 04/14/16 12:17 Hydralazine HCl (Apresoline) 25 mg Q8HR ORAL 04/13/16 22:00 05/13/16 21:59 04/14/16 05:20 Isosorbide Dinitrate (Isordil) 10 mg Q8HR ORAL 04/13/16 22:00 05/13/16 21:59 04/14/16 05:20 Levetiracetam (Keppra) 1,000 mg Q12HR ORAL 04/12/16 21:00 05/12/16 20:59 04/14/16 08:26 Levothyroxine Sodium (Synthroid) 100 mcg DAILY@0630 ORAL 04/13/16 06:30 05/13/16 06:29 04/14/16 05:20 Metoprolol Tartrate (Lopressor) 25 mg BID ORAL 04/12/16 18:00 05/12/16 17:59 04/14/16 08:26 Nitroglycerin (Ntg) 0.4 mg Q5M PRN SL Prn Chest Pain 04/12/16 15:45 05/12/16 15:44 Ondansetron HCl (Zofran) 4 mg Q6H PRN IVP Nausea & Vomiting 04/12/16 15:45 05/12/16 15:44 Polyethylene Glycol (Miralax) 17 gm DAILYPRN PRN ORAL Constipation 04/12/16 15:45 05/12/16 15:44 Promethazine HCl/ Codeine (Phenergan with Codeine) 5 ml Q4H PRN ORAL For Cough 04/12/16 15:45 05/12/16 15:44 Quetiapine Fumarate (SEROquel) 25 mg Q6HR PRN ORAL Agitation 04/12/16 15:45 05/12/16 15:44 Temazepam (Restoril) 15 mg HSPRN PRN ORAL Insomnia 04/12/16 15:45 04/19/16 15:44 Tramadol HCl (Ultram) 25 mg TID PRN ORAL For Pain 04/12/16 15:45 04/19/16 15:44 Vancomycin HCl (Vanco rx to dose) 1 ea DAILY PRN MISC Per rx protocol 04/12/16 15:45 05/12/16 15:44 Vancomycin HCl/ Dextrose (Vancomycin/D5W) 275 ml @ 183.333 mls/hr Q24H IVPB 04/14/16 19:00 04/19/16 18:59 Warfarin Sodium (Coumadin per pharmacy) 1 ea DAILY PRN MISC Per rx protocol 04/13/16 18:45 05/13/16 18:44 Warfarin Sodium 4 mg 4 mg COUMADIN PO 04/14/16 17:00 04/14/16 17:01 CAROLINA RENAE Apr 14, 2016 12:45
[2016-04-14] MEDS: Promethazine/Codeine 5ml UD ORAL PRN (13:45)
--- NOTE | 2016-04-14 15:31 | General Progress Note ---
Assessment/Plan Status: deteriorating - renal parameters- Assessment/Plan Renal failure due to pre renal azotemia due to underlying CHF- Cr jacklyn- ? underlying CKD others: Pneumonia- SVT , At fib- h/o DVT- on antiCoagulations h/o HypoThyroidism h/o Gout Dementia HTN Plan: Optimize cardiac and pulmonary status monitor renal parameters- avoid nephrotoxics- stop Vanco, check am levels Urine Na and Eosinophils- Kidney LINDA Subjective ROS Limited/Unobtainable: No Constitutional: Reports: malaise, weakness Allergies: Coded Allergies: MARYANA INHIBITORS (Unverified Allergy, Unknown, 01/31/14) ARB-ANGIOTENSIN RECEPTOR ANTAGONIST (Unverified Allergy, Unknown, 01/31/14) Objective Last 24 Hour Vital Signs Date Time Temp Pulse Resp B/P Pulse Ox O2 Delivery O2 Flow Rate FiO2 04/14/16 13:46 124/66 04/14/16 13:45 124/66 04/14/16 12:17 77 124/66 04/14/16 12:00 97.2 77 20 124/66 99 Room Air 04/14/16 12:00 65 04/14/16 08:26 128 145/58 04/14/16 08:15 97.3 128 20 145/58 98 Room Air 04/14/16 08:00 141 04/14/16 07:07 162 134/76 04/14/16 06:26 162 04/14/16 05:20 134/76 04/14/16 05:20 134/76 04/14/16 04:12 98.3 62 20 134/76 94 Room Air 04/14/16 04:00 123 04/14/16 00:18 98.8 83 21 129/77 96 Room Air 04/14/16 00:00 104 04/13/16 22:17 143/77 04/13/16 22:16 143/77 04/13/16 20:00 81 04/13/16 20:00 98.2 86 18 143/77 99 Room Air 04/13/16 18:58 84 133/76 04/13/16 16:00 98.2 84 20 133/76 96 Room Air 04/13/16 16:00 93 Intake and Output 04/13/16 04/14/16 19:00 07:00 Intake Total 120 ml 325 ml Output Total 500 ml 700 ml Balance -380 ml -375 ml Intake Oral 120 ml IV Total 325 ml Output Urine Total 500 ml 700 ml Laboratory Tests 04/13/16 20:30: Prothrombin Time 31.9H, Prothromb Time International Ratio 3.0H 04/14/16 07:30: Prothrombin Time 28.1H, Prothromb Time International Ratio 2.7H, White Blood Count 8.4, Red Blood Count 3.82L, Hemoglobin 10.8L, Hematocrit 33.8L, Mean Corpuscular Volume 88, Mean Corpuscular Hemoglobin 28.3, Mean Corpuscular Hemoglobin Concent 32.0, Red Cell Distribution Width 15.9H, Platelet Count 185, Mean Platelet Volume 7.9, Neutrophils (%) (Auto) 53.3, Lymphocytes (%) (Auto) 27.8, Monocytes (%) (Auto) 15.4H, Eosinophils (%) (Auto) 2.6, Basophils (%) ( Auto) 0.9, Sodium Level 142, Potassium Level 4.1, Chloride Level 102, Carbon Dioxide Level 20, Anion Gap 20H, Blood Urea Nitrogen 31H, Creatinine 2.1H, Estimat Glomerular Filtration Rate , Glucose Level 119H, Hemoglobin A1c 6.1H, Uric Acid 5.7, Calcium Level 8.9, Phosphorus Level 3.1, Magnesium Level 1.5L, Total Bilirubin 0.4, Gamma Glutamyl Transpeptidase 124H, Aspartate Amino Transf (AST/SGOT) 20, Alanine Aminotransferase (ALT/SGPT) 11, Alkaline Phosphatase 86, C-Reactive Protein, Quantitative 8.8H, Pro-B-Type Natriuretic Peptide 3280H, Total Protein 7.7, Albumin 3.6, Globulin 4.1, Albumin/Globulin Ratio 0.8L, Triglycerides Level 67, Cholesterol Level 173, LDL Cholesterol 111H, HDL Cholesterol 49, Cholesterol/HDL Ratio 3.5, Vitamin B12 Level 1042H, Folate [ Pending], Thyroid Stimulating Hormone (TSH) 0.663 Height (Feet): 6 Height (Inches): 0.00 Weight (Pounds): 180 General Appearance: mild distress Neck: stiff neck Cardiovascular: arrhythmia Respiratory/Chest: decreased breath sounds Abdomen: distended MARIA M YU Apr 14, 2016 15:31
--- NOTE | 2016-04-14 15:59 | Infectious Diseases Prog Note ---
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 > HCAP, aspiration - h/o ICMO, trop(-) x1, BNP 1796 - CXR: Mild pulmonary vascular redistribution and bilateral interstitial prominence - TTE 05/2014: EF 35-40%, grade I diastolic dysfunction, mod MR, TR, pulmonary HTN - negative: influenza, legionella UAg // Afebrile without leukocytosis // Vascular dementia, h/o CVA // ARF on CKD3 // Seizure disorder // A-fib // h/o MRSA colonization // Previous DNR PLAN: - continue empiric cefepime d# 3 / 5 ( 04/13 SP IV vancomycin d# 2 ) - diuresis, consider update TTE, monitor I&O, BNP - f/u cultures - monitor CBC, temperatures - monitor BMP - monitor CXR Subjective Allergies: Coded Allergies: MARYANA INHIBITORS (Unverified Allergy, Unknown, 01/31/14) ARB-ANGIOTENSIN RECEPTOR ANTAGONIST (Unverified Allergy, Unknown, 01/31/14) Subjective remains afebrile. cough improved noted vanco d/c'd Objective Vital Signs Last 24 Hour Vital Signs Date Time Temp Pulse Resp B/P Pulse Ox O2 Delivery O2 Flow Rate FiO2 04/14/16 13:46 124/66 04/14/16 13:45 124/66 04/14/16 12:17 77 124/66 04/14/16 12:00 97.2 77 20 124/66 99 Room Air 04/14/16 12:00 65 04/14/16 08:26 128 145/58 04/14/16 08:15 97.3 128 20 145/58 98 Room Air 04/14/16 08:00 141 04/14/16 07:07 162 134/76 04/14/16 06:26 162 04/14/16 05:20 134/76 04/14/16 05:20 134/76 04/14/16 04:12 98.3 62 20 134/76 94 Room Air 04/14/16 04:00 123 04/14/16 00:18 98.8 83 21 129/77 96 Room Air 04/14/16 00:00 104 04/13/16 22:17 143/77 04/13/16 22:16 143/77 04/13/16 20:00 81 04/13/16 20:00 98.2 86 18 143/77 99 Room Air 04/13/16 18:58 84 133/76 04/13/16 16:00 98.2 84 20 133/76 96 Room Air 04/13/16 16:00 93 Height (Feet): 6 Height (Inches): 0.00 Weight (Pounds): 180 General Appearance: no acute distress Respiratory/Chest: no respiratory distress Cardiovascular: normal rate, regular rhythm Abdomen: normal bowel sounds, soft, non tender, non distended Microbiology Date/Time Source Procedure Growth Status 04/12/16 13:45 Blood Blood Culture - Preliminary NO GROWTH AFTER 24 HOURS Resulted 04/12/16 13:45 Blood Blood Culture - Preliminary NO GROWTH AFTER 24 HOURS Resulted 04/12/16 21:30 Sputum Gram Stain - Final Resulted 04/12/16 21:30 Sputum Sputum Culture Pending Resulted 04/12/16 13:45 Nasal Nares Influenza Types A,B Antigen (GABINO) - Final Complete Laboratory Tests Test 04/13/16 20:30 04/14/16 07:30 Prothrombin Time 31.9 SEC (9.30-11.50) H 28.1 SEC (9.30-11.50) H Prothromb Time International Ratio 3.0 (0.9-1.1) H 2.7 (0.9-1.1) H White Blood Count 8.4 K/UL (4.8-10.8) Red Blood Count 3.82 M/UL (4.70-6.10) L Hemoglobin 10.8 G/DL (14.2-18.0) L Hematocrit 33.8 % (42.0-52.0) L Mean Corpuscular Volume 88 FL (80-99) Mean Corpuscular Hemoglobin 28.3 PG (27.0-31.0) Mean Corpuscular Hemoglobin Concent 32.0 G/DL (32.0-36.0) Red Cell Distribution Width 15.9 % (11.6-14.8) H Platelet Count 185 K/UL (150-450) Mean Platelet Volume 7.9 FL (6.5-10.1) Neutrophils (%) (Auto) 53.3 % (45.0-75.0) Lymphocytes (%) (Auto) 27.8 % (20.0-45.0) Monocytes (%) (Auto) 15.4 % (1.0-10.0) H Eosinophils (%) (Auto) 2.6 % (0.0-3.0) Basophils (%) (Auto) 0.9 % (0.0-2.0) Sodium Level 142 mEQ/L (135-145) Potassium Level 4.1 mEQ/L (3.4-4.9) Chloride Level 102 mEQ/L (98-107) Carbon Dioxide Level 20 mEQ/L (20-30) Anion Gap 20 (5-15) H Blood Urea Nitrogen 31 mg/dL (7-23) H Creatinine 2.1 mg/dL (0.7-1.2) H Estimat Glomerular Filtration Rate mL/min (>60) Glucose Level 119 mg/dL (74-106) H Hemoglobin A1c 6.1 % (< 6.0) H Uric Acid 5.7 mg/dL (3.0-7.5) Calcium Level 8.9 mg/dL (8.6-10.2) Phosphorus Level 3.1 mg/dL (2.5-4.8) Magnesium Level 1.5 mg/dL (1.7-2.5) L Total Bilirubin 0.4 mg/dL (0.0-1.2) Gamma Glutamyl Transpeptidase 124 U/L (8-61) H Aspartate Amino Transf (AST/SGOT) 20 U/L (5-40) Alanine Aminotransferase (ALT/SGPT) 11 U/L (3-41) Alkaline Phosphatase 86 U/L (40-129) C-Reactive Protein, Quantitative 8.8 mg/dL (< 0.5) H Pro-B-Type Natriuretic Peptide 3280 pg/mL (0-450) H Total Protein 7.7 g/dL (6.6-8.7) Albumin 3.6 g/dL (3.5-5.2) Globulin 4.1 g/dL Albumin/Globulin Ratio 0.8 (1.0-2.7) L Triglycerides Level 67 mg/dL (< 150) Cholesterol Level 173 mg/dL (< 200) LDL Cholesterol 111 mg/dL (60-99) H HDL Cholesterol 49 mg/dL (> 60) Cholesterol/HDL Ratio 3.5 (3.3-4.4) Vitamin B12 Level 1042 pg/mL (211-946) H Folate Pending Thyroid Stimulating Hormone (TSH) 0.663 uIU/mL (0.300-4.500) Current Medications Medications (Trade) Dose Ordered Sig/Con Route PRN Reason Start Time Stop Time Status Last Admin Dose Admin Acetaminophen (Tylenol) 650 mg Q4H PRN ORAL fever 04/12/16 15:45 05/12/16 15:44 Albuterol/ Ipratropium 3 ml 3 ml EVERY 4 HOURS PRN HHN Shortness of Breath 04/12/16 15:45 04/17/16 15:44 Allopurinol (Zyloprim) 75 mg DAILY ORAL 04/15/16 09:00 05/15/16 08:59 Cefepime HCl/ Dextrose (Maxipime/D5W 50ml) 50 ml @ 100 mls/hr Q24H IV 04/12/16 21:00 04/19/16 20:59 04/13/16 22:17 Digoxin (Lanoxin) 0.125 mg DAILY ORAL 04/13/16 09:00 05/13/16 08:59 04/14/16 06:26 Diltiazem HCl (Cardizem) 60 mg EVERY 6 HOURS ORAL 04/14/16 07:00 05/14/16 06:59 04/14/16 12:17 Hydralazine HCl (Apresoline) 25 mg Q8HR ORAL 04/13/16 22:00 05/13/16 21:59 04/14/16 13:46 Isosorbide Dinitrate (Isordil) 10 mg Q8HR ORAL 04/13/16 22:00 05/13/16 21:59 04/14/16 13:45 Levetiracetam (Keppra) 1,000 mg Q12HR ORAL 04/12/16 21:00 05/12/16 20:59 04/14/16 08:26 Levothyroxine Sodium (Synthroid) 100 mcg DAILY@0630 ORAL 04/13/16 06:30 05/13/16 06:29 04/14/16 05:20 Metoprolol Tartrate (Lopressor) 25 mg BID ORAL 04/12/16 18:00 05/12/16 17:59 04/14/16 08:26 Nitroglycerin (Ntg) 0.4 mg Q5M PRN SL Prn Chest Pain 04/12/16 15:45 05/12/16 15:44 Ondansetron HCl (Zofran) 4 mg Q6H PRN IVP Nausea & Vomiting 04/12/16 15:45 05/12/16 15:44 Polyethylene Glycol (Miralax) 17 gm DAILYPRN PRN ORAL Constipation 04/12/16 15:45 05/12/16 15:44 Promethazine HCl/ Codeine (Phenergan with Codeine) 5 ml Q4H PRN ORAL For Cough 04/12/16 15:45 05/12/16 15:44 04/14/16 13:45 Quetiapine Fumarate (SEROquel) 25 mg Q6HR PRN ORAL Agitation 04/12/16 15:45 05/12/16 15:44 Temazepam (Restoril) 15 mg HSPRN PRN ORAL Insomnia 04/12/16 15:45 04/19/16 15:44 Tramadol HCl (Ultram) 25 mg TID PRN ORAL For Pain 04/12/16 15:45 04/19/16 15:44 Warfarin Sodium (Coumadin per pharmacy) 1 ea DAILY PRN MISC Per rx protocol 04/13/16 18:45 05/13/16 18:44 Warfarin Sodium (Coumadin) 4 mg COUMADIN PO 04/14/16 17:00 04/14/16 17:01 ES YAP Apr 14, 2016 15:59
[2016-04-14 16:00] VITALS: BP 104/62
[2016-04-14] MEDS ORDERED: Warfarin Sodium 4mg PO SCH (17:00)
[2016-04-14] MEDS ORDERED: Vancomycin 1 GM in D5W 275 ML IVPB SCH (19:00)
[2016-04-14 20:00] VITALS: BP 131/81
[2016-04-15] VITALS (7 sets, daily range): BP systolic 108–149; BP diastolic 68–83
[2016-04-15] MEDS: HydrALAZINE 25mg tab ORAL SCH ×3 (06:45→22:12)
[2016-04-15 08:31] LABS: BASOPHILS % (AUTO) 1.1 % (0.0-2.0); EOSINOPHILS % (AUTO) 4.1 % (0.0-3.0); LYMPHOCYTES % (AUTO) 34.2 % (20.0-45.0); MEAN CORPUSCULAR HEMOGLOBIN 28.6 PG (27.0-31.0); MEAN CORPUSCULAR HGB CONC 32.3 G/DL (32.0-36.0); MEAN CORPUSCULAR VOLUME 88 FL (80-99); MEAN PLATELET VOLUME 7.4 FL (6.5-10.1); MONOCYTES % (AUTO) 14.7 % (1.0-10.0); PLATELET COUNT 195 K/UL (150-450); RED BLOOD COUNT 3.88 M/UL (4.70-6.10); RED CELL DISTRIBUTION WIDTH 15.7 % (11.6-14.8); WHITE BLOOD COUNT 7.5 K/UL (4.8-10.8)
[2016-04-15] MEDS: Digoxin Elixir 0.125mg ORAL SCH (08:31)
[2016-04-15] MEDS: Metoprolol 25mg tab ORAL SCH (08:31)
[2016-04-15 08:34] LABS: INR 2.4 (0.9-1.1); PROTHROMBIN TIME 24.7 SEC (9.30-11.50)
[2016-04-15 08:59] LABS: ALANINE AMINOTRANSFERASE 11 U/L (3-41); ALBUMIN/GLOBULIN RATIO 0.8 (1.0-2.7); ANION GAP 19 (5-15); ASPARTATE AMINO TRANSFERASE 19 U/L (5-40); CALCIUM 8.9 mg/dL (8.6-10.2); CARBON DIOXIDE 19 mEQ/L (20-30); CHLORIDE 102 mEQ/L (98-107); CREATININE 2.2 mg/dL (0.7-1.2); CRP QUANT 6.9 mg/dL (< 0.5); HEMOLYSIS 1; MAGNESIUM 1.5 mg/dL (1.7-2.5); PHOSPHORUS 3.5 mg/dL (2.5-4.8); SODIUM 140 mEQ/L (135-145); URIC ACID 6.3 mg/dL (3.0-7.5)
[2016-04-15] MEDS ORDERED: Allopurinol 100mg Tab ORAL SCH (09:00)
[2016-04-15] MEDS: levETIRAcetam 500mg/5ml Liquid ORAL SCH ×2 (10:44→21:09)
--- NOTE | 2016-04-15 10:49 | General Progress Note ---
Assessment/Plan Status: unchanged Assessment/Plan Renal failure due to pre renal azotemia due to underlying CHF- Cr jacklyn- ? underlying CKD others: Pneumonia- SVT , At fib- h/o DVT- on antiCoagulations h/o HypoThyroidism h/o Gout Dementia HTN Plan: Optimize cardiac and pulmonary status monitor renal parameters- avoid nephrotoxics- Vanco redose, check am levels Urine Na and Eosinophils- Kidney LINDA- pending- start flomax- Subjective ROS Limited/Unobtainable: No Constitutional: Reports: malaise, weakness Allergies: Coded Allergies: MARYANA INHIBITORS (Unverified Allergy, Unknown, 01/31/14) ARB-ANGIOTENSIN RECEPTOR ANTAGONIST (Unverified Allergy, Unknown, 01/31/14) Objective Last 24 Hour Vital Signs Date Time Temp Pulse Resp B/P Pulse Ox O2 Delivery O2 Flow Rate FiO2 04/15/16 08:31 136 122/70 04/15/16 08:31 136 04/15/16 08:25 97.3 136 20 122/70 97 Room Air 04/15/16 08:05 145 04/15/16 07:45 136 04/15/16 06:46 95 129/75 04/15/16 06:45 129/75 04/15/16 06:45 129/75 04/15/16 04:10 98.5 96 21 129/75 98 Room Air 04/15/16 04:00 104 04/15/16 00:42 93 110/70 04/15/16 00:20 98.8 89 20 109/68 96 Room Air 04/15/16 00:00 98 04/14/16 21:15 131/81 04/14/16 21:14 131/81 04/14/16 20:00 96.0 71 18 131/81 98 Room Air 04/14/16 20:00 83 04/14/16 17:24 91 131/79 04/14/16 17:23 91 131/79 04/14/16 16:00 97.5 79 18 104/62 98 Room Air 04/14/16 16:00 90 04/14/16 13:46 124/66 04/14/16 13:45 124/66 04/14/16 12:17 77 124/66 04/14/16 12:00 97.2 77 20 124/66 99 Room Air 04/14/16 12:00 65 Intake and Output 04/14/16 04/15/16 19:00 07:00 Intake Total 240 ml Output Total 300 ml 500 ml Balance -60 ml -500 ml Intake Oral 240 ml Output Urine Total 300 ml 500 ml Laboratory Tests 04/15/16 00:25: Urine Eosinophils None seen, Urine Random Sodium 38 04/15/16 07:45: White Blood Count 7.5, Red Blood Count 3.88L, Hemoglobin 11.1L, Hematocrit 34.3L , Mean Corpuscular Volume 88, Mean Corpuscular Hemoglobin 28.6, Mean Corpuscular Hemoglobin Concent 32.3, Red Cell Distribution Width 15.7H, Platelet Count 195, Mean Platelet Volume 7.4, Neutrophils (%) (Auto) 46.0, Lymphocytes (%) (Auto) 34.2, Monocytes (%) (Auto) 14.7H, Eosinophils (%) (Auto) 4.1H, Basophils (%) (Auto) 1.1, Prothrombin Time 24.7H, Prothromb Time International Ratio 2.4H, Sodium Level 140, Potassium Level 4.0, Chloride Level 102, Carbon Dioxide Level 19L, Anion Gap 19H, Blood Urea Nitrogen 35H, Creatinine 2.2H, Estimat Glomerular Filtration Rate , Glucose Level 114H, Uric Acid 6.3, Calcium Level 8.9, Phosphorus Level 3.5, Magnesium Level 1.5L, Total Bilirubin 0.4, Aspartate Amino Transf (AST/SGOT) 19, Alanine Aminotransferase ( ALT/SGPT) 11, Alkaline Phosphatase 78, C-Reactive Protein, Quantitative 6.9H, Pro-B-Type Natriuretic Peptide 2704H, Total Protein 8.0, Albumin 3.6, Globulin 4.4, Albumin/Globulin Ratio 0.8L, Random Vancomycin Level 12.3 Height (Feet): 6 Height (Inches): 0.00 Weight (Pounds): 180 General Appearance: no apparent distress Cardiovascular: bradycardia Respiratory/Chest: decreased breath sounds Abdomen: soft MARIA M YU Apr 15, 2016 10:49
[2016-04-15] MEDS ORDERED: Vancomycin 1 GM in D5W 275 ML IVPB ONE (13:00)
[2016-04-15] MEDS: Promethazine/Codeine 5ml UD ORAL PRN (13:31)
--- NOTE | 2016-04-15 14:11 | General Progress Note ---
Assessment/Plan Status: stable Assessment/Plan 1. Systemic inflammatory response syndrome. 2. Healthcare-associated interstitial pneumonia. 3. Cardiomyopathy. 4. Atrial fibrillation, controlled rate. 5. Gout, stable. 6. Acute on chronic renal failure. 7. 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 8. Chronic obstructive pulmonary disease. 9. Neuropathic pain. 10. Anticoagulation. Plan: Nephro, Pulmonary, ID and Cardiology notes are reviewd current management Persistent cough. Subjective ROS Limited/Unobtainable: No Constitutional: Reports: other - persistent cough HEENT: Reports: no symptoms Cardiovascular: Reports: no symptoms Allergies: Coded Allergies: MARYANA INHIBITORS (Unverified Allergy, Unknown, 01/31/14) ARB-ANGIOTENSIN RECEPTOR ANTAGONIST (Unverified Allergy, Unknown, 01/31/14) Objective Last 24 Hour Vital Signs Date Time Temp Pulse Resp B/P Pulse Ox O2 Delivery O2 Flow Rate FiO2 04/15/16 13:30 136/83 04/15/16 13:30 136/83 04/15/16 13:28 66 136/83 04/15/16 12:37 89 111/71 04/15/16 11:59 98.1 89 20 111/71 96 Room Air 04/15/16 08:31 136 122/70 04/15/16 08:31 136 04/15/16 08:25 97.3 136 20 122/70 97 Room Air 04/15/16 08:05 145 04/15/16 07:45 136 04/15/16 06:46 95 129/75 04/15/16 06:45 129/75 04/15/16 06:45 129/75 04/15/16 04:10 98.5 96 21 129/75 98 Room Air 04/15/16 04:00 104 04/15/16 00:42 93 110/70 04/15/16 00:20 98.8 89 20 109/68 96 Room Air 04/15/16 00:00 98 04/14/16 21:15 131/81 04/14/16 21:14 131/81 04/14/16 20:00 96.0 71 18 131/81 98 Room Air 04/14/16 20:00 83 04/14/16 17:24 91 131/79 04/14/16 17:23 91 131/79 04/14/16 16:00 97.5 79 18 104/62 98 Room Air 04/14/16 16:00 90 Intake and Output 04/14/16 04/15/16 19:00 07:00 Intake Total 240 ml Output Total 300 ml 500 ml Balance -60 ml -500 ml Intake Oral 240 ml Output Urine Total 300 ml 500 ml Laboratory Tests 04/15/16 00:25: Urine Eosinophils None seen, Urine Random Sodium 38 04/15/16 07:45: White Blood Count 7.5, Red Blood Count 3.88L, Hemoglobin 11.1L, Hematocrit 34.3L , Mean Corpuscular Volume 88, Mean Corpuscular Hemoglobin 28.6, Mean Corpuscular Hemoglobin Concent 32.3, Red Cell Distribution Width 15.7H, Platelet Count 195, Mean Platelet Volume 7.4, Neutrophils (%) (Auto) 46.0, Lymphocytes (%) (Auto) 34.2, Monocytes (%) (Auto) 14.7H, Eosinophils (%) (Auto) 4.1H, Basophils (%) (Auto) 1.1, Prothrombin Time 24.7H, Prothromb Time International Ratio 2.4H, Sodium Level 140, Potassium Level 4.0, Chloride Level 102, Carbon Dioxide Level 19L, Anion Gap 19H, Blood Urea Nitrogen 35H, Creatinine 2.2H, Estimat Glomerular Filtration Rate , Glucose Level 114H, Uric Acid 6.3, Calcium Level 8.9, Phosphorus Level 3.5, Magnesium Level 1.5L, Total Bilirubin 0.4, Aspartate Amino Transf (AST/SGOT) 19, Alanine Aminotransferase ( ALT/SGPT) 11, Alkaline Phosphatase 78, C-Reactive Protein, Quantitative 6.9H, Pro-B-Type Natriuretic Peptide 2704H, Total Protein 8.0, Albumin 3.6, Globulin 4.4, Albumin/Globulin Ratio 0.8L, Random Vancomycin Level 12.3 Height (Feet): 6 Height (Inches): 0.00 Weight (Pounds): 180 General Appearance: no apparent distress EENT: PERRL/EOMI Neck: supple Cardiovascular: normal rate Respiratory/Chest: lungs clear Abdomen: soft Extremities: other - right hemipelgia Neurologic: disoriented, other - demented Ondina Geiger MD Apr 15, 2016 14:11
--- NOTE | 2016-04-15 14:48 | Cardiac Electrophysiology PN ---
Assessment/Plan Status: stable, progressing Status Narrative Mr Tate had rapid AF again this am, up 140s, not associated with symptoms of palpitations. He has cough/congestion. ECHO shows normal LV systolic function. There is a ? of small density on MV. However, doubt vegetation ,as pt afebrile, w/ normal WBC and negative blood cultures. Assessment/Plan will increase metoprolol to 50 mg bid, and continue dilitiazem, digoxin Continue warfarin - INR therapeutic Hold lasix. Follow i/os. repeat labs in am Conitnue treatment for bronchitis per primary MD Subjective Subjective Pt c/o persistent cough, productive of whitish sputum. Events noted Objective Last 24 Hour Vital Signs Date Time Temp Pulse Resp B/P Pulse Ox O2 Delivery O2 Flow Rate FiO2 04/15/16 13:30 136/83 04/15/16 13:30 136/83 04/15/16 13:28 66 136/83 04/15/16 12:37 89 111/71 04/15/16 11:59 98.1 89 20 111/71 96 Room Air 04/15/16 08:31 136 122/70 04/15/16 08:31 136 04/15/16 08:25 97.3 136 20 122/70 97 Room Air 04/15/16 08:05 145 04/15/16 07:45 136 04/15/16 06:46 95 129/75 04/15/16 06:45 129/75 04/15/16 06:45 129/75 04/15/16 04:10 98.5 96 21 129/75 98 Room Air 04/15/16 04:00 104 04/15/16 00:42 93 110/70 04/15/16 00:20 98.8 89 20 109/68 96 Room Air 04/15/16 00:00 98 04/14/16 21:15 131/81 04/14/16 21:14 131/81 04/14/16 20:00 96.0 71 18 131/81 98 Room Air 04/14/16 20:00 83 04/14/16 17:24 91 131/79 04/14/16 17:23 91 131/79 04/14/16 16:00 97.5 79 18 104/62 98 Room Air 04/14/16 16:00 90 General Appearance: WD/WN, no apparent distress, alert Rhythm: Afib Cardiovascular: normal rate, no gallop/murmur, irregularly irregular Respiratory/Chest: other - bilat lower field rhonchi Abdomen: non tender, soft Extremities: no swelling Neurologic: alert, motor weakness - R hemiparesis Intake and Output 04/14/16 04/15/16 19:00 07:00 Intake Total 240 ml Output Total 300 ml 500 ml Balance -60 ml -500 ml Intake Oral 240 ml Output Urine Total 300 ml 500 ml Laboratory Tests Test 04/15/16 00:25 04/15/16 07:45 Urine Eosinophils None seen Urine Random Sodium 38 mmol/L White Blood Count 7.5 K/UL (4.8-10.8) Red Blood Count 3.88 M/UL (4.70-6.10) L Hemoglobin 11.1 G/DL (14.2-18.0) L Hematocrit 34.3 % (42.0-52.0) L Mean Corpuscular Volume 88 FL (80-99) Mean Corpuscular Hemoglobin 28.6 PG (27.0-31.0) Mean Corpuscular Hemoglobin Concent 32.3 G/DL (32.0-36.0) Red Cell Distribution Width 15.7 % (11.6-14.8) H Platelet Count 195 K/UL (150-450) Mean Platelet Volume 7.4 FL (6.5-10.1) Neutrophils (%) (Auto) 46.0 % (45.0-75.0) Lymphocytes (%) (Auto) 34.2 % (20.0-45.0) Monocytes (%) (Auto) 14.7 % (1.0-10.0) H Eosinophils (%) (Auto) 4.1 % (0.0-3.0) H Basophils (%) (Auto) 1.1 % (0.0-2.0) Prothrombin Time 24.7 SEC (9.30-11.50) H Prothromb Time International Ratio 2.4 (0.9-1.1) H Sodium Level 140 mEQ/L (135-145) Potassium Level 4.0 mEQ/L (3.4-4.9) Chloride Level 102 mEQ/L (98-107) Carbon Dioxide Level 19 mEQ/L (20-30) L Anion Gap 19 (5-15) H Blood Urea Nitrogen 35 mg/dL (7-23) H Creatinine 2.2 mg/dL (0.7-1.2) H Estimat Glomerular Filtration Rate mL/min (>60) Glucose Level 114 mg/dL (74-106) H Uric Acid 6.3 mg/dL (3.0-7.5) Calcium Level 8.9 mg/dL (8.6-10.2) Phosphorus Level 3.5 mg/dL (2.5-4.8) Magnesium Level 1.5 mg/dL (1.7-2.5) L Total Bilirubin 0.4 mg/dL (0.0-1.2) Aspartate Amino Transf (AST/SGOT) 19 U/L (5-40) Alanine Aminotransferase (ALT/SGPT) 11 U/L (3-41) Alkaline Phosphatase 78 U/L (40-129) C-Reactive Protein, Quantitative 6.9 mg/dL (< 0.5) H Pro-B-Type Natriuretic Peptide 2704 pg/mL (0-450) H Total Protein 8.0 g/dL (6.6-8.7) Albumin 3.6 g/dL (3.5-5.2) Globulin 4.4 g/dL Albumin/Globulin Ratio 0.8 (1.0-2.7) L Random Vancomycin Level 12.3 ug/mL Microbiology Date/Time Source Procedure Growth Status 04/12/16 21:30 Sputum Gram Stain - Final Complete 04/12/16 21:30 Sputum Sputum Culture - Final NORMAL UPPER RESPIRATORY SHARYN PRESENT Complete DESIREE ROMERO Apr 15, 2016 14:48
--- NOTE | 2016-04-15 15:19 | Pulmonology Progress Note ---
Assessment/Plan Problems: (1) Pneumonia (2) Cardiomyopathy (3) Atrial fibrillation with RVR (4) Dementia, vascular (5) CVA (cerebral infarction) Assessment/Plan lasix was stopped f/u renal parameters, worse today Respiratory treatment holman cultures sputum for c/s, negative cardiac monitoring aspiration precaution cardiac evaluation by Dr. Bonilla appreciated check electrolytes chest pt titrate fio2 to sat of 92% Keep in teli Subjective ROS Limited/Unobtainable: Yes Respiratory: Reports: productive cough, sputum, wheezing Neurologic: Reports: confusion, numbness, weakness Allergies: Coded Allergies: MARYANA INHIBITORS (Unverified Allergy, Unknown, 01/31/14) ARB-ANGIOTENSIN RECEPTOR ANTAGONIST (Unverified Allergy, Unknown, 01/31/14) Objective Last 24 Hour Vital Signs Date Time Temp Pulse Resp B/P Pulse Ox O2 Delivery O2 Flow Rate FiO2 04/15/16 13:30 136/83 04/15/16 13:30 136/83 04/15/16 13:28 66 136/83 04/15/16 12:37 89 111/71 04/15/16 11:59 98.1 89 20 111/71 96 Room Air 04/15/16 08:31 136 122/70 04/15/16 08:31 136 04/15/16 08:25 97.3 136 20 122/70 97 Room Air 04/15/16 08:05 145 04/15/16 07:45 136 04/15/16 06:46 95 129/75 04/15/16 06:45 129/75 04/15/16 06:45 129/75 04/15/16 04:10 98.5 96 21 129/75 98 Room Air 04/15/16 04:00 104 04/15/16 00:42 93 110/70 04/15/16 00:20 98.8 89 20 109/68 96 Room Air 04/15/16 00:00 98 04/14/16 21:15 131/81 04/14/16 21:14 131/81 04/14/16 20:00 96.0 71 18 131/81 98 Room Air 04/14/16 20:00 83 04/14/16 17:24 91 131/79 04/14/16 17:23 91 131/79 04/14/16 16:00 97.5 79 18 104/62 98 Room Air 04/14/16 16:00 90 Intake and Output 04/14/16 04/15/16 19:00 07:00 Intake Total 240 ml Output Total 300 ml 500 ml Balance -60 ml -500 ml Intake Oral 240 ml Output Urine Total 300 ml 500 ml General Appearance: no acute distress HEENT: normocephalic, atraumatic, PERRL Respiratory/Chest: chest wall non-tender, decreased breath sounds, accessory muscle use, rhonchi Cardiovascular: normal peripheral pulses, arrhythmia, irregularly irregular Abdomen: normal bowel sounds, soft, non tender, no organomegaly, non distended Genitourinary: normal external genitalia Extremities: no cyanosis Skin: lesions Neurologic/Psychiatric: meat cooler II-XII 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, responsive, abnormal CN, motor weakness, sensory deficit, disoriented, aphasia, depressed affect Microbiology Date/Time Source Procedure Growth Status 04/12/16 21:30 Sputum Gram Stain - Final Complete 04/12/16 21:30 Sputum Sputum Culture - Final NORMAL UPPER RESPIRATORY SHARYN PRESENT Complete Laboratory Tests 04/15/16 00:25: Urine Eosinophils None seen, Urine Random Sodium 38 04/15/16 07:45: White Blood Count 7.5, Red Blood Count 3.88L, Hemoglobin 11.1L, Hematocrit 34.3L , Mean Corpuscular Volume 88, Mean Corpuscular Hemoglobin 28.6, Mean Corpuscular Hemoglobin Concent 32.3, Red Cell Distribution Width 15.7H, Platelet Count 195, Mean Platelet Volume 7.4, Neutrophils (%) (Auto) 46.0, Lymphocytes (%) (Auto) 34.2, Monocytes (%) (Auto) 14.7H, Eosinophils (%) (Auto) 4.1H, Basophils (%) (Auto) 1.1, Prothrombin Time 24.7H, Prothromb Time International Ratio 2.4H, Sodium Level 140, Potassium Level 4.0, Chloride Level 102, Carbon Dioxide Level 19L, Anion Gap 19H, Blood Urea Nitrogen 35H, Creatinine 2.2H, Estimat Glomerular Filtration Rate , Glucose Level 114H, Uric Acid 6.3, Calcium Level 8.9, Phosphorus Level 3.5, Magnesium Level 1.5L, Total Bilirubin 0.4, Aspartate Amino Transf (AST/SGOT) 19, Alanine Aminotransferase ( ALT/SGPT) 11, Alkaline Phosphatase 78, C-Reactive Protein, Quantitative 6.9H, Pro-B-Type Natriuretic Peptide 2704H, Total Protein 8.0, Albumin 3.6, Globulin 4.4, Albumin/Globulin Ratio 0.8L, Random Vancomycin Level 12.3 Current Medications Medications (Trade) Dose Ordered Sig/Con Route PRN Reason Start Time Stop Time Status Last Admin Dose Admin Acetaminophen (Tylenol) 650 mg Q4H PRN ORAL fever 04/12/16 15:45 05/12/16 15:44 Albuterol/ Ipratropium 3 ml 3 ml EVERY 4 HOURS PRN HHN Shortness of Breath 04/12/16 15:45 04/17/16 15:44 Allopurinol (Zyloprim) 100 mg DAILY ORAL 04/16/16 09:00 05/16/16 08:59 Cefepime HCl/ Dextrose (Maxipime/D5W 50ml) 50 ml @ 100 mls/hr Q24H IV 04/12/16 21:00 04/19/16 20:59 04/14/16 21:16 Digoxin (Lanoxin) 0.125 mg DAILY ORAL 04/13/16 09:00 05/13/16 08:59 04/15/16 08:31 Diltiazem HCl (Cardizem) 60 mg EVERY 6 HOURS ORAL 04/14/16 07:00 05/14/16 06:59 04/15/16 12:37 Hydralazine HCl (Apresoline) 25 mg Q8HR ORAL 04/13/16 22:00 05/13/16 21:59 04/15/16 13:30 Isosorbide Dinitrate (Isordil) 10 mg Q8HR ORAL 04/13/16 22:00 05/13/16 21:59 04/15/16 13:30 Levetiracetam (Keppra) 1,000 mg Q12HR ORAL 04/12/16 21:00 05/12/16 20:59 04/15/16 10:44 Levothyroxine Sodium (Synthroid) 75 mcg DAILY@0630 ORAL 04/16/16 06:30 05/16/16 06:29 Metoprolol Tartrate (Lopressor) 50 mg Q12HR ORAL 04/15/16 21:00 05/15/16 20:59 Nitroglycerin (Ntg) 0.4 mg Q5M PRN SL Prn Chest Pain 04/12/16 15:45 05/12/16 15:44 Ondansetron HCl (Zofran) 4 mg Q6H PRN IVP Nausea & Vomiting 04/12/16 15:45 05/12/16 15:44 Polyethylene Glycol (Miralax) 17 gm DAILYPRN PRN ORAL Constipation 04/12/16 15:45 05/12/16 15:44 Promethazine HCl/ Codeine (Phenergan with Codeine) 5 ml Q4H PRN ORAL For Cough 04/12/16 15:45 05/12/16 15:44 04/15/16 13:31 Quetiapine Fumarate (SEROquel) 25 mg Q6HR PRN ORAL Agitation 04/12/16 15:45 05/12/16 15:44 Tamsulosin HCl (Flomax) 0.4 mg BEDTIME ORAL 04/15/16 21:00 05/15/16 20:59 Temazepam (Restoril) 15 mg HSPRN PRN ORAL Insomnia 04/12/16 15:45 04/19/16 15:44 Tramadol HCl (Ultram) 25 mg TID PRN ORAL For Pain 04/12/16 15:45 04/19/16 15:44 Warfarin Sodium (Coumadin per pharmacy) 1 ea DAILY PRN MISC Per rx protocol 04/13/16 18:45 05/13/16 18:44 Warfarin Sodium/ Warfarin Sodium (Coumadin/ Coumadin) 4.5 mg COUMADIN ONCE ORAL 04/15/16 17:00 04/15/16 17:01 CAROLINA RENAE Apr 15, 2016 15:19
--- NOTE | 2016-04-15 16:36 | Infectious Diseases Prog Note ---
Assessment/Plan Assessment/Plan ASSESSMENT: 80 y/o male with: // Chronic cough ?PND ?asthma ?allergic // Suspect acute on chronic systolic and diastolic CHF exacerbation > HCAP, aspiration - h/o ICMO, trop(-) x1, BNP 1796 - CXR: Mild pulmonary vascular redistribution and bilateral interstitial prominence - TTE 05/2014: EF 35-40%, grade I diastolic dysfunction, mod MR, TR, pulmonary HTN - negative: influenza, legionella UAg // Afebrile without leukocytosis // Vascular dementia, h/o CVA // ARF on CKD3 // Seizure disorder // A-fib // h/o MRSA colonization // Previous DNR PLAN: - continue empiric cefepime d# 4 / 5 ( 04/13 SP IV vancomycin d# 2 ) - f/u cultures - monitor CBC, temperatures - monitor BMP - monitor CXR Subjective Allergies: Coded Allergies: MARYANA INHIBITORS (Unverified Allergy, Unknown, 01/31/14) ARB-ANGIOTENSIN RECEPTOR ANTAGONIST (Unverified Allergy, Unknown, 01/31/14) Subjective remains afebrile. chronic cough Objective Vital Signs Last 24 Hour Vital Signs Date Time Temp Pulse Resp B/P Pulse Ox O2 Delivery O2 Flow Rate FiO2 04/15/16 13:30 136/83 04/15/16 13:30 136/83 04/15/16 13:28 66 136/83 04/15/16 12:37 89 111/71 04/15/16 11:59 98.1 89 20 111/71 96 Room Air 04/15/16 08:31 136 122/70 04/15/16 08:31 136 04/15/16 08:25 97.3 136 20 122/70 97 Room Air 04/15/16 08:05 145 04/15/16 07:45 136 04/15/16 06:46 95 129/75 04/15/16 06:45 129/75 04/15/16 06:45 129/75 04/15/16 04:10 98.5 96 21 129/75 98 Room Air 04/15/16 04:00 104 04/15/16 00:42 93 110/70 04/15/16 00:20 98.8 89 20 109/68 96 Room Air 04/15/16 00:00 98 04/14/16 21:15 131/81 04/14/16 21:14 [id number] 04/14/16 20:00 96.0 71 18 98 Room Air 04/14/16 20:00 83 04/14/16 17:24 91 04/14/16 17:23 91 Height (Feet): 6 Height (Inches): 0.00 Weight (Pounds): 180 General Appearance: no acute distress Respiratory/Chest: no respiratory distress Cardiovascular: normal rate, regular rhythm Abdomen: normal bowel sounds, soft, non tender, non distended Microbiology Date/Time Source Procedure Growth Status 04/12/16 21:30 Sputum Gram Stain - Final Complete 04/12/16 21:30 Sputum Sputum Culture - Final NORMAL UPPER RESPIRATORY SHARYN PRESENT Complete Laboratory Tests Test 04/15/16 00:25 04/15/16 07:45 Urine Eosinophils None seen Urine Random Sodium 38 mmol/L White Blood Count 7.5 K/UL (4.8-10.8) Red Blood Count 3.88 M/UL (4.70-6.10) L Hemoglobin 11.1 G/DL (14.2-18.0) L Hematocrit 34.3 % (42.0-52.0) L Mean Corpuscular Volume 88 FL (80-99) Mean Corpuscular Hemoglobin 28.6 PG (27.0-31.0) Mean Corpuscular Hemoglobin Concent 32.3 G/DL (32.0-36.0) Red Cell Distribution Width 15.7 % (11.6-14.8) H Platelet Count 195 K/UL (150-450) Mean Platelet Volume 7.4 FL (6.5-10.1) Neutrophils (%) (Auto) 46.0 % (45.0-75.0) Lymphocytes (%) (Auto) 34.2 % (20.0-45.0) Monocytes (%) (Auto) 14.7 % (1.0-10.0) H Eosinophils (%) (Auto) 4.1 % (0.0-3.0) H Basophils (%) (Auto) 1.1 % (0.0-2.0) Prothrombin Time 24.7 SEC (9.30-11.50) H Prothromb Time International Ratio 2.4 (0.9-1.1) H Sodium Level 140 mEQ/L (135-145) Potassium Level 4.0 mEQ/L (3.4-4.9) Chloride Level 102 mEQ/L (98-107) Carbon Dioxide Level 19 mEQ/L (20-30) L Anion Gap 19 (5-15) H Blood Urea Nitrogen 35 mg/dL (7-23) H Creatinine 2.2 mg/dL (0.7-1.2) H Estimat Glomerular Filtration Rate mL/min (>60) Glucose Level 114 mg/dL (74-106) H Uric Acid 6.3 mg/dL (3.0-7.5) Calcium Level 8.9 mg/dL (8.6-10.2) Phosphorus Level 3.5 mg/dL (2.5-4.8) Magnesium Level 1.5 mg/dL (1.7-2.5) L Total Bilirubin 0.4 mg/dL (0.0-1.2) Aspartate Amino Transf (AST/SGOT) 19 U/L (5-40) Alanine Aminotransferase (ALT/SGPT) 11 U/L (3-41) Alkaline Phosphatase 78 U/L (40-129) C-Reactive Protein, Quantitative 6.9 mg/dL (< 0.5) H Pro-B-Type Natriuretic Peptide 2704 pg/mL (0-450) H Total Protein 8.0 g/dL (6.6-8.7) Albumin 3.6 g/dL (3.5-5.2) Globulin 4.4 g/dL Albumin/Globulin Ratio 0.8 (1.0-2.7) L Random Vancomycin Level 12.3 ug/mL Current Medications Medications (Trade) Dose Ordered Sig/Con Route PRN Reason Start Time Stop Time Status Last Admin Dose Admin Acetaminophen (Tylenol) 650 mg Q4H PRN ORAL fever 04/12/16 15:45 05/12/16 15:44 Albuterol/ Ipratropium 3 ml 3 ml EVERY 4 HOURS PRN HHN Shortness of Breath 04/12/16 15:45 04/17/16 15:44 Allopurinol (Zyloprim) 100 mg DAILY ORAL 04/16/16 09:00 05/16/16 08:59 Cefepime HCl/ Dextrose (Maxipime/D5W 50ml) 50 ml @ 100 mls/hr Q24H IV 04/12/16 21:00 04/19/16 20:59 04/14/16 21:16 Digoxin (Lanoxin) 0.125 mg DAILY ORAL 04/13/16 09:00 05/13/16 08:59 04/15/16 08:31 Diltiazem HCl (Cardizem) 60 mg EVERY 6 HOURS ORAL 04/14/16 07:00 05/14/16 06:59 04/15/16 12:37 Hydralazine HCl (Apresoline) 25 mg Q8HR ORAL 04/13/16 22:00 05/13/16 21:59 04/15/16 13:30 Isosorbide Dinitrate (Isordil) 10 mg Q8HR ORAL 04/13/16 22:00 05/13/16 21:59 04/15/16 13:30 Levetiracetam (Keppra) 1,000 mg Q12HR ORAL 04/12/16 21:00 05/12/16 20:59 04/15/16 10:44 Levothyroxine Sodium (Synthroid) 75 mcg DAILY@0630 ORAL 04/16/16 06:30 05/16/16 06:29 Metoprolol Tartrate (Lopressor) 50 mg Q12HR ORAL 04/15/16 21:00 05/15/16 20:59 Nitroglycerin (Ntg) 0.4 mg Q5M PRN SL Prn Chest Pain 04/12/16 15:45 05/12/16 15:44 Ondansetron HCl (Zofran) 4 mg Q6H PRN IVP Nausea & Vomiting 04/12/16 15:45 05/12/16 15:44 Polyethylene Glycol (Miralax) 17 gm DAILYPRN PRN ORAL Constipation 04/12/16 15:45 05/12/16 15:44 Promethazine HCl/ Codeine (Phenergan with Codeine) 5 ml Q4H PRN ORAL For Cough 04/12/16 15:45 05/12/16 15:44 04/15/16 13:31 Quetiapine Fumarate (SEROquel) 25 mg Q6HR PRN ORAL Agitation 04/12/16 15:45 05/12/16 15:44 Tamsulosin HCl (Flomax) 0.4 mg BEDTIME ORAL 04/15/16 21:00 05/15/16 20:59 Temazepam (Restoril) 15 mg HSPRN PRN ORAL Insomnia 04/12/16 15:45 04/19/16 15:44 Tramadol HCl (Ultram) 25 mg TID PRN ORAL For Pain 04/12/16 15:45 04/19/16 15:44 Warfarin Sodium (Coumadin per pharmacy) 1 ea DAILY PRN MISC Per rx protocol 04/13/16 18:45 05/13/16 18:44 Warfarin Sodium/ Warfarin Sodium (Coumadin/ Coumadin) 4.5 mg COUMADIN ONCE ORAL 04/15/16 17:00 04/15/16 17:01 ES YAP Apr 15, 2016 16:36
[2016-04-15] MEDS ORDERED: WARFARIN SOD ORAL ONE ×2 (17:00)
[2016-04-15] MEDS ORDERED: Metoprolol 25mg tab ORAL SCH (21:00)
[2016-04-15] MEDS: Tamsulosin 0.4mg cap ORAL SCH (21:10)
[2016-04-16] VITALS (7 sets, daily range): BP systolic 108–140; BP diastolic 65–94
[2016-04-16] MEDS: Promethazine/Codeine 5ml UD ORAL PRN ×2 (01:00→13:24)
[2016-04-16] MEDS: Metoprolol 25mg tab ORAL SCH ×2 (03:42→09:39)
[2016-04-16] MEDS: HydrALAZINE 25mg tab ORAL SCH ×3 (06:44→21:37)
[2016-04-16 08:16] LABS: INR 2.3 (0.9-1.1); PROTHROMBIN TIME 23.7 SEC (9.30-11.50)
[2016-04-16] MEDS: levETIRAcetam 500mg/5ml Liquid ORAL SCH ×2 (08:57→21:05)
[2016-04-16] MEDS: Digoxin Elixir 0.125mg ORAL SCH (08:57)
[2016-04-16] MEDS: Allopurinol 100mg Tab ORAL SCH (09:38)
--- NOTE | 2016-04-16 10:45 | Diagnostic Imaging Report ---
Indications: Renal failure, hypertension Technique: Transabdominal real-time grayscale and duplex Doppler imaging of the kidneys, retroperitoneum, and urinary bladder was performed Findings: Comparison: 02/26/2014 Right kidney measures 10.6 cm in length. Normal contour, echotexture, cortical thickness. Circumscribed anechoic cortical foci up to 16 mm. No stones, other focal lesions, hydronephrosis, or obvious perinephric abnormalities. Left kidney measures 11 cm in length. Normal contour, echotexture, cortical thickness. Circumscribed anechoic cortical foci up to 21 mm. No stones, other focal lesions, hydronephrosis, or obvious perinephric abnormalities. The intrahepatic portion of inferior vena cava is patent and normal caliber. The urinary bladder is collapsed. IMPRESSION: Bilateral renal cortical cysts Otherwise sonographically unremarkable kidneys No significant change from prior exam
--- NOTE | 2016-04-16 10:50 | General Progress Note ---
Assessment/Plan Status: stable Assessment/Plan 1. Systemic inflammatory response syndrome. 2. Healthcare-associated interstitial pneumonia. 3. Cardiomyopathy. 4. Atrial fibrillation, controlled rate. 5. Gout, stable. 6. Acute on chronic renal failure. 7. 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 8. Chronic obstructive pulmonary disease. 9. Neuropathic pain. 10. Anticoagulation. Plan: Nephro, Pulmonary, ID and Cardiology notes are reviewd current management Persistent cough. Subjective ROS Limited/Unobtainable: No Respiratory: Reports: cough Allergies: Coded Allergies: MARYANA INHIBITORS (Unverified Allergy, Unknown, 01/31/14) ARB-ANGIOTENSIN RECEPTOR ANTAGONIST (Unverified Allergy, Unknown, 01/31/14) Objective Last 24 Hour Vital Signs Date Time Temp Pulse Resp B/P Pulse Ox O2 Delivery O2 Flow Rate FiO2 04/16/16 09:39 88 130/80 04/16/16 09:35 88 130/80 04/16/16 08:57 99 04/16/16 08:36 97.3 99 20 108/74 96 Room Air 04/16/16 07:53 108 04/16/16 06:44 108/68 04/16/16 06:43 85 108/68 04/16/16 06:43 108/68 04/16/16 04:13 98.8 119 20 108/65 96 Room Air 04/16/16 04:00 93 04/16/16 03:42 145 125/62 04/16/16 01:00 88 128/94 04/16/16 00:27 98.5 107 21 128/94 98 Room Air 04/16/16 00:00 134 04/15/16 22:12 154/87 04/15/16 22:12 154/87 04/15/16 21:00 77 108/82 04/15/16 20:00 97.7 77 18 108/82 97 Room Air 04/15/16 20:00 110 04/15/16 17:25 95 115/81 04/15/16 16:00 98.4 95 18 115/81 94 Room Air 04/15/16 16:00 102 04/15/16 13:30 136/83 04/15/16 13:30 136/83 04/15/16 13:28 66 136/83 04/15/16 12:37 89 111/71 04/15/16 11:59 98.1 89 20 111/71 96 Room Air Intake and Output 04/15/16 04/16/16 19:00 07:00 Intake Total 606 ml Output Total 300 ml 250 ml Balance 306 ml -250 ml Intake Oral 240 ml IV Total 366 ml Output Urine Total 300 ml 250 ml Laboratory Tests 04/16/16 03:45: Urine Eosinophils [Pending] 04/16/16 05:45: Prothrombin Time 23.7H, Prothromb Time International Ratio 2.3H, Random Vancomycin Level 17.7 Height (Feet): 6 Height (Inches): 0.00 Weight (Pounds): 180 General Appearance: no apparent distress EENT: PERRL/EOMI Neck: supple Cardiovascular: systolic murmur, gallop/S3 Respiratory/Chest: rhonchi - bilaterally Abdomen: soft Extremities: other - right hemiparesis Neurologic: oriented x 3 Ondina Geiger MD Apr 16, 2016 10:50
--- NOTE | 2016-04-16 11:56 | Diagnostic Imaging Report ---
Indications: COUGH Technique: Portable AP chest Findings: Comparison: None Cardiac silhouette remains enlarged. Pulmonary vasculature remains within normal limits. Lungs and pleura remain grossly clear. Aortic arch calcification, chronic deformities of both shoulder joints unchanged. IMPRESSION: No evidence of acute cardiopulmonary disease, unchanged Stable chronic changes as described
--- NOTE | 2016-04-16 14:23 | Infectious Diseases Prog Note ---
Assessment/Plan Assessment/Plan ASSESSMENT: 80 y/o male with: // Chronic cough ?PND ?asthma ?allergic - CXR 04/16: No evidence of acute cardiopulmonary disease, unchanged. 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 Monitor pt off of ABX ( 04/13 SP IV vancomycin d# 2 ) - f/u final cultures - monitor CBC, temperatures - monitor BMP - monitor CXR Subjective Allergies: Coded Allergies: MARYANA INHIBITORS (Unverified Allergy, Unknown, 01/31/14) ARB-ANGIOTENSIN RECEPTOR ANTAGONIST (Unverified Allergy, Unknown, 01/31/14) Subjective remains afebrile. chronic cough Objective Vital Signs Last 24 Hour Vital Signs Date Time Temp Pulse Resp B/P Pulse Ox O2 Delivery O2 Flow Rate FiO2 04/16/16 13:24 95 140/87 04/16/16 13:24 140/87 04/16/16 13:23 140/87 04/16/16 12:02 97.9 95 20 140/87 97 Room Air 04/16/16 09:39 88 130/80 04/16/16 09:35 88 130/80 04/16/16 08:57 99 04/16/16 08:36 97.3 99 20 108/74 96 Room Air 04/16/16 07:53 108 04/16/16 06:44 108/68 04/16/16 06:43 85 108/68 04/16/16 06:43 108/68 04/16/16 04:13 98.8 119 20 108/65 96 Room Air 04/16/16 04:00 93 04/16/16 03:42 145 125/62 04/16/16 01:00 88 128/94 04/16/16 00:27 98.5 107 21 128/94 98 Room Air 04/16/16 00:00 134 1/19/17 22:12 154/87 04/15/16 22:12 154/87 04/15/16 21:00 77 108/82 04/15/16 20:00 97.7 77 18 108/82 97 Room Air 04/15/16 20:00 110 04/15/16 17:25 95 115/81 04/15/16 16:00 98.4 95 18 115/81 94 Room Air 04/15/16 16:00 102 Height (Feet): 6 Height (Inches): 0.00 Weight (Pounds): 180 General Appearance: no acute distress Respiratory/Chest: no respiratory distress Cardiovascular: normal rate, regular rhythm Abdomen: normal bowel sounds, soft, non tender, non distended Laboratory Tests Test 04/16/16 03:45 04/16/16 05:45 Urine Eosinophils None seen Prothrombin Time 23.7 SEC (9.30-11.50) H Prothromb Time International Ratio 2.3 (0.9-1.1) H Random Vancomycin Level 17.7 ug/mL Current Medications Medications (Trade) Dose Ordered Sig/Con Route PRN Reason Start Time Stop Time Status Last Admin Dose Admin Acetaminophen (Tylenol) 650 mg Q4H PRN ORAL fever 04/12/16 15:45 05/12/16 15:44 Albuterol/ Ipratropium 3 ml 3 ml EVERY 4 HOURS PRN HHN Shortness of Breath 04/12/16 15:45 04/17/16 15:44 Allopurinol (Zyloprim) 100 mg DAILY ORAL 04/16/16 09:00 05/16/16 08:59 04/16/16 09:38 Cefepime HCl/ Dextrose (Maxipime/D5W 50ml) 50 ml @ 100 mls/hr Q24H IV 04/12/16 21:00 04/19/16 20:59 04/15/16 21:08 Digoxin (Lanoxin) 0.125 mg DAILY ORAL 04/13/16 09:00 05/13/16 08:59 04/16/16 08:57 Diltiazem HCl (Cardizem) 60 mg EVERY 6 HOURS ORAL 04/14/16 07:00 05/14/16 06:59 04/16/16 13:24 Hydralazine HCl (Apresoline) 25 mg Q8HR ORAL 04/13/16 22:00 05/13/16 21:59 04/16/16 13:24 Isosorbide Dinitrate (Isordil) 10 mg Q8HR ORAL 04/13/16 22:00 05/13/16 21:59 04/16/16 13:23 Levetiracetam (Keppra) 1,000 mg Q12HR ORAL 04/12/16 21:00 05/12/16 20:59 04/16/16 08:57 Levothyroxine Sodium (Synthroid) 75 mcg DAILY@0630 ORAL 04/16/16 06:30 05/16/16 06:29 04/16/16 06:44 Metoprolol Tartrate (Lopressor) 50 mg Q12HR ORAL 04/16/16 21:00 05/16/16 20:59 Nitroglycerin (Ntg) 0.4 mg Q5M PRN SL Prn Chest Pain 04/12/16 15:45 05/12/16 15:44 Ondansetron HCl (Zofran) 4 mg Q6H PRN IVP Nausea & Vomiting 04/12/16 15:45 05/12/16 15:44 Polyethylene Glycol (Miralax) 17 gm DAILYPRN PRN ORAL Constipation 04/12/16 15:45 05/12/16 15:44 Promethazine HCl/ Codeine (Phenergan with Codeine) 5 ml Q4H PRN ORAL For Cough 04/12/16 15:45 05/12/16 15:44 04/16/16 13:24 Quetiapine Fumarate (SEROquel) 25 mg Q6HR PRN ORAL Agitation 04/12/16 15:45 05/12/16 15:44 Tamsulosin HCl (Flomax) 0.4 mg BEDTIME ORAL 04/15/16 21:00 05/15/16 20:59 04/15/16 21:10 Temazepam (Restoril) 15 mg HSPRN PRN ORAL Insomnia 04/12/16 15:45 04/19/16 15:44 Tramadol HCl (Ultram) 25 mg TID PRN ORAL For Pain 04/12/16 15:45 04/19/16 15:44 Warfarin Sodium (Coumadin per pharmacy) 1 ea DAILY PRN MISC Per rx protocol 1/17/17 18:45 05/13/16 18:44 Warfarin Sodium (Coumadin) 5 mg COUMADIN ONCE ORAL 04/16/16 17:00 04/16/16 17:01 ES YAP Apr 16, 2016 14:23
--- NOTE | 2016-04-16 14:41 | Pulmonology Progress Note ---
Assessment/Plan Problems: (1) Pneumonia (2) Cardiomyopathy (3) Atrial fibrillation with RVR (4) Dementia, vascular (5) CVA (cerebral infarction) Assessment/Plan Respiratory treatment holman cultures sputum for c/s, negative cardiac monitoring episodes of tachycardia check electrolytes titrate fio2 to sat of 92% Keep in teli Subjective ROS Limited/Unobtainable: No Interval Events: improving, less cough Constitutional: Reports: no symptoms Allergies: Coded Allergies: MARYANA INHIBITORS (Unverified Allergy, Unknown, 01/31/14) ARB-ANGIOTENSIN RECEPTOR ANTAGONIST (Unverified Allergy, Unknown, 01/31/14) Objective Last 24 Hour Vital Signs Date Time Temp Pulse Resp B/P Pulse Ox O2 Delivery O2 Flow Rate FiO2 04/16/16 13:24 95 140/87 04/16/16 13:24 140/87 04/16/16 13:23 140/87 04/16/16 12:02 97.9 95 20 140/87 97 Room Air 04/16/16 09:39 88 130/80 04/16/16 09:35 88 130/80 04/16/16 08:57 99 04/16/16 08:36 97.3 99 20 108/74 96 Room Air 04/16/16 07:53 108 04/16/16 06:44 108/68 04/16/16 06:43 85 108/68 04/16/16 06:43 108/68 04/16/16 04:13 98.8 119 20 108/65 96 Room Air 04/16/16 04:00 93 04/16/16 03:42 145 125/62 04/16/16 01:00 88 128/94 04/16/16 00:27 98.5 107 21 128/94 98 Room Air 04/16/16 00:00 134 04/15/16 22:12 154/87 04/15/16 22:12 154/87 04/15/16 21:00 77 108/82 04/15/16 20:00 97.7 77 18 108/82 97 Room Air 04/15/16 20:00 110 04/15/16 17:25 95 115/81 04/15/16 16:00 98.4 95 18 115/81 94 Room Air 04/15/16 16:00 102 Intake and Output 04/15/16 04/16/16 19:00 07:00 Intake Total 606 ml Output Total 300 ml 250 ml Balance 306 ml -250 ml Intake Oral 240 ml IV Total 366 ml Output Urine Total 300 ml 250 ml General Appearance: WD/WN HEENT: normocephalic, atraumatic Respiratory/Chest: chest wall non-tender, lungs clear Cardiovascular: normal peripheral pulses, normal rate Abdomen: normal bowel sounds, soft, non tender Genitourinary: normal external genitalia Skin: no rash Laboratory Tests 04/16/16 03:45: Urine Eosinophils None seen 04/16/16 05:45: Prothrombin Time 23.7H, Prothromb Time International Ratio 2.3H, Random Vancomycin Level 17.7 Current Medications Medications (Trade) Dose Ordered Sig/Con Route PRN Reason Start Time Stop Time Status Last Admin Dose Admin Acetaminophen (Tylenol) 650 mg Q4H PRN ORAL fever 04/12/16 15:45 05/12/16 15:44 Albuterol/ Ipratropium 3 ml 3 ml EVERY 4 HOURS PRN HHN Shortness of Breath 04/12/16 15:45 04/17/16 15:44 Allopurinol (Zyloprim) 100 mg DAILY ORAL 04/16/16 09:00 05/16/16 08:59 04/16/16 09:38 Cefepime HCl/ Dextrose (Maxipime/D5W) 50 ml @ 100 mls/hr Q24H IV 04/12/16 21:00 04/16/16 23:59 04/15/16 21:08 Digoxin (Lanoxin) 0.125 mg DAILY ORAL 04/13/16 09:00 05/13/16 08:59 04/16/16 08:57 Diltiazem HCl (Cardizem) 60 mg EVERY 6 HOURS ORAL 04/14/16 07:00 05/14/16 06:59 04/16/16 13:24 Hydralazine HCl (Apresoline) 25 mg Q8HR ORAL 04/13/16 22:00 05/13/16 21:59 04/16/16 13:24 Isosorbide Dinitrate (Isordil) 10 mg Q8HR ORAL 04/13/16 22:00 05/13/16 21:59 04/16/16 13:23 Levetiracetam (Keppra) 1,000 mg Q12HR ORAL 04/12/16 21:00 05/12/16 20:59 04/16/16 08:57 Levothyroxine Sodium (Synthroid) 75 mcg DAILY@0630 ORAL 04/16/16 06:30 05/16/16 06:29 04/16/16 06:44 Metoprolol Tartrate (Lopressor) 50 mg Q12HR ORAL 04/16/16 21:00 05/16/16 20:59 Nitroglycerin (Ntg) 0.4 mg Q5M PRN SL Prn Chest Pain 04/12/16 15:45 05/12/16 15:44 Ondansetron HCl (Zofran) 4 mg Q6H PRN IVP Nausea & Vomiting 04/12/16 15:45 05/12/16 15:44 Polyethylene Glycol (Miralax) 17 gm DAILYPRN PRN ORAL Constipation 04/12/16 15:45 05/12/16 15:44 Promethazine HCl/ Codeine (Phenergan with Codeine) 5 ml Q4H PRN ORAL For Cough 04/12/16 15:45 05/12/16 15:44 04/16/16 13:24 Quetiapine Fumarate (SEROquel) 25 mg Q6HR PRN ORAL Agitation 04/12/16 15:45 05/12/16 15:44 Tamsulosin HCl (Flomax) 0.4 mg BEDTIME ORAL 04/15/16 21:00 05/15/16 20:59 04/15/16 21:10 Temazepam (Restoril) 15 mg HSPRN PRN ORAL Insomnia 04/12/16 15:45 04/19/16 15:44 Tramadol HCl (Ultram) 25 mg TID PRN ORAL For Pain 04/12/16 15:45 04/19/16 15:44 Warfarin Sodium (Coumadin per pharmacy) 1 ea DAILY PRN MISC Per rx protocol 04/13/16 18:45 05/13/16 18:44 Warfarin Sodium (Coumadin) 5 mg COUMADIN ONCE ORAL 04/16/16 17:00 04/16/16 17:01 CAROLINA RENAE Apr 16, 2016 14:41
--- NOTE | 2016-04-16 16:48 | General Progress Note ---
Assessment/Plan Status: unchanged Assessment/Plan Renal failure due to pre renal azotemia due to underlying CHF- Cr jacklyn- ? underlying CKD others: Pneumonia- SVT , At fib- h/o DVT- on antiCoagulations h/o HypoThyroidism h/o Gout Dementia HTN Plan: no labs today Optimize cardiac and pulmonary status monitor renal parameters- avoid nephrotoxics- Luis Fernandoo redosed 04/15 , check levels 04/16 : was 17.7 Urine Na and Eosinophils- Kidney LINDA- Negative On flomax- Subjective ROS Limited/Unobtainable: Yes Allergies: Coded Allergies: MARYANA INHIBITORS (Unverified Allergy, Unknown, 01/31/14) ARB-ANGIOTENSIN RECEPTOR ANTAGONIST (Unverified Allergy, Unknown, 01/31/14) Objective Last 24 Hour Vital Signs Date Time Temp Pulse Resp B/P Pulse Ox O2 Delivery O2 Flow Rate FiO2 04/16/16 16:00 97.5 63 16 118/68 99 Room Air 04/16/16 13:24 95 140/87 04/16/16 13:24 140/87 04/16/16 13:23 140/87 04/16/16 12:02 97.9 95 20 140/87 97 Room Air 04/16/16 09:39 88 130/80 04/16/16 09:35 88 130/80 04/16/16 08:57 99 04/16/16 08:36 97.3 99 20 108/74 96 Room Air 04/16/16 07:53 108 04/16/16 06:44 108/68 04/16/16 06:43 85 108/68 04/16/16 06:43 108/68 04/16/16 04:13 98.8 119 20 108/65 96 Room Air 04/16/16 04:00 93 04/16/16 03:42 145 125/62 04/16/16 01:00 88 128/94 04/16/16 00:27 98.5 107 21 128/94 98 Room Air 04/16/16 00:00 134 04/15/16 22:12 154/87 04/15/16 22:12 154/87 04/15/16 21:00 77 108/82 04/15/16 20:00 97.7 77 18 108/82 97 Room Air 04/15/16 20:00 110 04/15/16 17:25 95 115/81 Intake and Output 04/15/16 04/16/16 18:59 06:59 Intake Total 606 ml Output Total 300 ml 250 ml Balance 306 ml -250 ml Intake Oral 240 ml IV Total 366 ml Output Urine Total 300 ml 250 ml Laboratory Tests 04/16/16 03:45: Urine Eosinophils None seen 04/16/16 05:45: Prothrombin Time 23.7H, Prothromb Time International Ratio 2.3H, Random Vancomycin Level 17.7 Height (Feet): 6 Height (Inches): 0.00 Weight (Pounds): 180 General Appearance: no apparent distress Neck: stiff neck Respiratory/Chest: decreased breath sounds Abdomen: distended Objective other PE not changed MARIA M YU Apr 16, 2016 16:48
[2016-04-16] MEDS ORDERED: Warfarin Sodium 5mg ORAL ONE (17:00)
[2016-04-16] MEDS: Tamsulosin 0.4mg cap ORAL SCH (21:05)
[2016-04-16] MEDS: Metoprolol 50mg tab ORAL SCH (21:42)
[2016-04-17 00:34] VITALS: BP 117/67
[2016-04-17 04:15] VITALS: BP 118/77
[2016-04-17] MEDS: HydrALAZINE 25mg tab ORAL SCH ×2 (06:31→13:51)
--- NOTE | 2016-04-17 07:21 | Pulmonology Progress Note ---
Assessment/Plan Assessment/Plan ASSESSMENT [facility] PNA vs bronchitis ATN on CKD AF with RVR- resolved Hypo Mg seizure disorder Vascular dementia Hx of CVA with R hemiparesis HTN schizophrenia PLAN OF CARE tele abx, ID follows sputum, influenza screen, blood cx all negative last CXR negative initial CXR with bilateral congestive changes O2 HHN prn antitussive prn nephro follows renal US negative avoid nephrotoxic per nephro - ATN likely prerenal in nature 2 to underlying CHF ECHO with EF 60-65% and RVSP of 31 rate control with BB, Digoxin and Cardizem, stable ? of small echo density on mitral valve leaflet , cardio - doubt vegetation , in lieu of negative blood cultures, afebrile and no leukocytosis continue Coumadin, keep INR in therapeutic range, hold Lasix BP management with CCB, BB and Hydralazine, optimize as needed seizure precautions, continue Keppra transfer to [place] if ok with cardio case discussed and evaluated by supervising physician Subjective Allergies: Coded Allergies: MARYANA INHIBITORS (Unverified Allergy, Unknown, 01/31/14) ARB-ANGIOTENSIN RECEPTOR ANTAGONIST (Unverified Allergy, Unknown, 01/31/14) Subjective afebrile, no leukocytosis no signs of respiratory distress rate controlled Objective Last 24 Hour Vital Signs Date Time Temp Pulse Resp B/P Pulse Ox O2 Delivery O2 Flow Rate FiO2 04/17/16 06:31 72 117/60 04/17/16 06:31 117/60 04/17/16 06:31 117/60 04/17/16 04:15 98.8 78 21 118/77 94 Room Air 04/17/16 04:00 80 04/17/16 00:59 76 120/60 04/17/16 00:34 98.3 68 20 117/67 97 Room Air 04/17/16 00:00 71 04/16/16 22:00 74 04/16/16 21:42 76 129/76 04/16/16 21:37 129/76 04/16/16 21:36 129/76 04/16/16 20:00 97.2 76 15 129/76 97 Room Air 04/16/16 17:46 74 118/68 04/16/16 16:00 70 04/16/16 16:00 97.5 63 16 118/68 99 Room Air 04/16/16 13:24 95 140/87 04/16/16 13:24 140/87 04/16/16 13:23 140/87 04/16/16 12:02 97.9 95 20 140/87 97 Room Air 04/16/16 09:39 88 130/80 04/16/16 09:35 88 130/80 04/16/16 08:57 99 04/16/16 08:36 97.3 99 20 108/74 96 Room Air 04/16/16 07:53 108 Intake and Output 04/16/16 04/17/16 18:59 06:59 Intake Total 240 ml 50 ml Output Total 500 ml 200 ml Balance -260 ml -150 ml Intake Oral 240 ml IV Total 50 ml Output Urine Total 500 ml 200 ml # Voids 1 General Appearance: no acute distress, other - awake, confused HEENT: normocephalic, atraumatic Respiratory/Chest: lungs clear - with moderate air entry , no respiratory distress, no accessory muscle use Cardiovascular: no JVD, irregularly irregular - A fib on tele, rate controlled Abdomen: soft, non tender, non distended Extremities: no edema Neurologic/Psychiatric: abnormal gait, other - R hemiparesis Musculoskeletal: atrophy - BLE Current Medications Medications (Trade) Dose Ordered Sig/Con Route PRN Reason Start Time Stop Time Status Last Admin Dose Admin Acetaminophen (Tylenol) 650 mg Q4H PRN ORAL fever 04/12/16 15:45 05/12/16 15:44 Albuterol/ Ipratropium (DuoNeb 0.5-3(2.5)mg/3ml) 3 ml EVERY 4 HOURS PRN HHN Shortness of Breath 04/12/16 15:45 04/17/16 15:44 Allopurinol (Zyloprim) 100 mg DAILY ORAL 04/16/16 09:00 05/16/16 08:59 04/16/16 09:38 Digoxin (Lanoxin) 0.125 mg DAILY ORAL 04/13/16 09:00 05/13/16 08:59 04/16/16 08:57 Diltiazem HCl (Cardizem) 60 mg EVERY 6 HOURS ORAL 04/14/16 07:00 05/14/16 06:59 04/17/16 06:31 Hydralazine HCl (Apresoline) 25 mg Q8HR ORAL 04/13/16 22:00 05/13/16 21:59 04/17/16 06:31 Isosorbide Dinitrate (Isordil) 10 mg Q8HR ORAL 04/13/16 22:00 05/13/16 21:59 04/17/16 06:31 Levetiracetam (Keppra) 1,000 mg Q12HR ORAL 04/12/16 21:00 05/12/16 20:59 04/16/16 21:05 Levothyroxine Sodium (Synthroid) 75 mcg DAILY@0630 ORAL 04/16/16 06:30 05/16/16 06:29 04/17/16 06:31 Metoprolol Tartrate (Lopressor) 50 mg Q12HR ORAL 04/16/16 21:00 05/16/16 20:59 04/16/16 21:42 Nitroglycerin (Ntg) 0.4 mg Q5M PRN SL Prn Chest Pain 04/12/16 15:45 05/12/16 15:44 Ondansetron HCl (Zofran) 4 mg Q6H PRN IVP Nausea & Vomiting 04/12/16 15:45 05/12/16 15:44 Polyethylene Glycol (Miralax) 17 gm DAILYPRN PRN ORAL Constipation 04/12/16 15:45 05/12/16 15:44 Promethazine HCl/ Codeine (Phenergan with Codeine) 5 ml Q4H PRN ORAL For Cough 04/12/16 15:45 05/12/16 15:44 04/16/16 13:24 Quetiapine Fumarate (SEROquel) 25 mg Q6HR PRN ORAL Agitation 04/12/16 15:45 05/12/16 15:44 Tamsulosin HCl (Flomax) 0.4 mg BEDTIME ORAL 04/15/16 21:00 05/15/16 20:59 04/16/16 21:05 Temazepam (Restoril) 15 mg HSPRN PRN ORAL Insomnia 04/12/16 15:45 04/19/16 15:44 Tramadol HCl (Ultram) 25 mg TID PRN ORAL For Pain 04/12/16 15:45 04/19/16 15:44 Warfarin Sodium (Coumadin per pharmacy) 1 ea DAILY PRN MISC Per rx protocol 04/13/16 18:45 05/13/16 18:44 Hardy (Vanchtein),Trish SU Apr 17, 2016 07:20
[2016-04-17 08:00] VITALS: BP 131/83
[2016-04-17] MEDS: levETIRAcetam 500mg/5ml Liquid ORAL SCH (08:25)
[2016-04-17] MEDS: Allopurinol 100mg Tab ORAL SCH (08:27)
[2016-04-17] MEDS: Metoprolol 50mg tab ORAL SCH (08:27)
[2016-04-17 08:28] LABS: ALANINE AMINOTRANSFERASE 8 U/L (3-41); ALBUMIN/GLOBULIN RATIO 0.8 (1.0-2.7); ANION GAP 15 (5-15); ASPARTATE AMINO TRANSFERASE 17 U/L (5-40); CALCIUM 8.7 mg/dL (8.6-10.2); CARBON DIOXIDE 23 mEQ/L (20-30); CHLORIDE 104 mEQ/L (98-107); CREATININE 2.2 mg/dL (0.7-1.2); CRP QUANT 3.8 mg/dL (< 0.5); HEMOLYSIS 2; MAGNESIUM 1.7 mg/dL (1.7-2.5); POTASSIUM 4.3 mEQ/L (3.4-4.9); SODIUM 142 mEQ/L (135-145); TOTAL PROTEIN 7.3 g/dL (6.6-8.7); URIC ACID 6.4 mg/dL (3.0-7.5)
[2016-04-17] MEDS: Digoxin Elixir 0.125mg ORAL SCH (08:28)
[2016-04-17 08:44] LABS: BASOPHILS % (AUTO) 1.2 % (0.0-2.0); EOSINOPHILS % (AUTO) 5.2 % (0.0-3.0); LYMPHOCYTES % (AUTO) 34.9 % (20.0-45.0); MEAN CORPUSCULAR HEMOGLOBIN 28.1 PG (27.0-31.0); MEAN CORPUSCULAR HGB CONC 31.3 G/DL (32.0-36.0); MEAN CORPUSCULAR VOLUME 90 FL (80-99); MEAN PLATELET VOLUME 6.9 FL (6.5-10.1); MONOCYTES % (AUTO) 12.8 % (1.0-10.0); NEUTROPHILS % (AUTO) 45.9 % (45.0-75.0); PLATELET COUNT 166 K/UL (150-450); RED CELL DISTRIBUTION WIDTH 15.9 % (11.6-14.8); WHITE BLOOD COUNT 6.6 K/UL (4.8-10.8)
[2016-04-17 12:00] VITALS: BP 136/78
--- NOTE | 2016-04-17 12:43 | General Progress Note ---
Assessment/Plan Status: stable Assessment/Plan 1. Systemic inflammatory response syndrome. 2. Healthcare-associated interstitial pneumonia. 3. Cardiomyopathy. 4. Atrial fibrillation, controlled rate. 5. Gout, stable. 6. Acute on chronic renal failure. 7. 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 8. Chronic obstructive pulmonary disease. 9. Neuropathic pain. 10. Anticoagulation. Plan: Nephro, Pulmonary, ID and Cardiology notes are reviewd current management Persistent cough. Ok to Dc to snif Subjective ROS Limited/Unobtainable: No Constitutional: Reports: no symptoms HEENT: Reports: no symptoms Cardiovascular: Reports: no symptoms Respiratory: Reports: cough, no symptoms Allergies: Coded Allergies: MARYANA INHIBITORS (Unverified Allergy, Unknown, 01/31/14) ARB-ANGIOTENSIN RECEPTOR ANTAGONIST (Unverified Allergy, Unknown, 01/31/14) Objective Last 24 Hour Vital Signs Date Time Temp Pulse Resp B/P Pulse Ox O2 Delivery O2 Flow Rate FiO2 04/17/16 12:14 77 134/76 04/17/16 08:28 89 04/17/16 08:27 89 131/83 04/17/16 08:00 98.8 102 26 131/83 99 Room Air 04/17/16 08:00 96 04/17/16 06:31 72 117/60 04/17/16 06:31 117/60 04/17/16 06:31 117/60 04/17/16 04:15 98.8 78 21 118/77 94 Room Air 04/17/16 04:00 80 04/17/16 00:59 76 120/60 04/17/16 00:34 98.3 68 20 117/67 97 Room Air 04/17/16 00:00 71 04/16/16 22:00 74 04/16/16 21:42 76 129/76 04/16/16 21:37 129/76 04/16/16 21:36 129/76 04/16/16 20:00 97.2 76 15 129/76 97 Room Air 04/16/16 17:46 74 118/68 04/16/16 16:00 70 04/16/16 16:00 97.5 63 16 118/68 99 Room Air 04/16/16 13:24 95 140/87 04/16/16 13:24 140/87 04/16/16 13:23 140/87 Intake and Output 04/16/16 04/17/16 19:00 07:00 Intake Total 240 ml 50 ml Output Total 500 ml 200 ml Balance -260 ml -150 ml Intake Oral 240 ml IV Total 50 ml Output Urine Total 500 ml 200 ml # Voids 1 Laboratory Tests 04/17/16 05:35: Urine Eosinophils None seen 04/17/16 07:15: White Blood Count 6.6, Red Blood Count 3.50L, Hemoglobin 9.8L, Hematocrit 31.4L , Mean Corpuscular Volume 90, Mean Corpuscular Hemoglobin 28.1, Mean Corpuscular Hemoglobin Concent 31.3L, Red Cell Distribution Width 15.9H, Platelet Count 166, Mean Platelet Volume 6.9, Neutrophils (%) (Auto) 45.9, Lymphocytes (%) (Auto) 34.9, Monocytes (%) (Auto) 12.8H, Eosinophils (%) (Auto) 5.2H, Basophils (%) (Auto) 1.2, Sodium Level 142, Potassium Level 4.3, Chloride Level 104, Carbon Dioxide Level 23, Anion Gap 15, Blood Urea Nitrogen 37H, Creatinine 2.2H, Estimat Glomerular Filtration Rate , Glucose Level 101, Uric Acid 6.4, Calcium Level 8.7, Phosphorus Level 3.0, Magnesium Level 1.7, Total Bilirubin 0.3, Aspartate Amino Transf (AST/SGOT) 17, Alanine Aminotransferase ( ALT/SGPT) 8, Alkaline Phosphatase 70, C-Reactive Protein, Quantitative 3.8H, Pro -B-Type Natriuretic Peptide 1989H, Total Protein 7.3, Albumin 3.3L, Globulin 4.0 , Albumin/Globulin Ratio 0.8L Height (Feet): 6 Height (Inches): 0.00 Weight (Pounds): 180 General Appearance: no apparent distress EENT: PERRL/EOMI Neck: supple Cardiovascular: normal rate Respiratory/Chest: lungs clear Extremities: other - Right hemiparesis Neurologic: disoriented, pronator drift, other - sandhya Plegia- at baseline Ondina Geiger MD Apr 17, 2016 12:43
--- NOTE | 2016-04-17 13:51 | General Progress Note ---
Assessment/Plan Status: stable Status Narrative Cr 2.2 stable Assessment/Plan Renal failure due to pre renal azotemia due to underlying CHF- Cr 2.2 ? underlying CKD others: Pneumonia- SVT , At fib- h/o DVT- on antiCoagulations h/o HypoThyroidism h/o Gout Dementia HTN Plan: Optimize cardiac and pulmonary status monitor renal parameters- avoid nephrotoxics- Vanco redosed 04/15 , check levels 04/16 : was 17.7 Urine Na and Eosinophils- Kidney LINDA- Negative On flomax- Subjective ROS Limited/Unobtainable: No Constitutional: Reports: malaise Allergies: Coded Allergies: MARYANA INHIBITORS (Unverified Allergy, Unknown, 01/31/14) ARB-ANGIOTENSIN RECEPTOR ANTAGONIST (Unverified Allergy, Unknown, 01/31/14) Objective Last 24 Hour Vital Signs Date Time Temp Pulse Resp B/P Pulse Ox O2 Delivery O2 Flow Rate FiO2 04/17/16 12:14 77 134/76 04/17/16 12:00 98.0 98 24 136/78 24 Room Air 04/17/16 12:00 85 04/17/16 08:28 89 04/17/16 08:27 89 131/83 04/17/16 08:00 98.8 102 26 131/83 99 Room Air 04/17/16 08:00 96 04/17/16 06:31 72 117/60 04/17/16 06:31 117/60 04/17/16 06:31 117/60 04/17/16 04:15 98.8 78 21 118/77 94 Room Air 04/17/16 04:00 80 04/17/16 00:59 76 120/60 04/17/16 00:34 98.3 68 20 117/67 97 Room Air 04/17/16 00:00 71 04/16/16 22:00 74 04/16/16 21:42 76 129/76 04/16/16 21:37 129/76 04/16/16 21:36 129/76 04/16/16 20:00 97.2 76 15 129/76 97 Room Air 04/16/16 17:46 74 118/68 04/16/16 16:00 70 04/16/16 16:00 97.5 63 16 118/68 99 Room Air Intake and Output 04/16/16 04/17/16 19:00 07:00 Intake Total 240 ml 50 ml Output Total 500 ml 200 ml Balance -260 ml -150 ml Intake Oral 240 ml IV Total 50 ml Output Urine Total 500 ml 200 ml # Voids 1 Laboratory Tests 04/17/16 05:35: Urine Eosinophils None seen 04/17/16 07:15: White Blood Count 6.6, Red Blood Count 3.50L, Hemoglobin 9.8L, Hematocrit 31.4L , Mean Corpuscular Volume 90, Mean Corpuscular Hemoglobin 28.1, Mean Corpuscular Hemoglobin Concent 31.3L, Red Cell Distribution Width 15.9H, Platelet Count 166, Mean Platelet Volume 6.9, Neutrophils (%) (Auto) 45.9, Lymphocytes (%) (Auto) 34.9, Monocytes (%) (Auto) 12.8H, Eosinophils (%) (Auto) 5.2H, Basophils (%) (Auto) 1.2, Sodium Level 142, Potassium Level 4.3, Chloride Level 104, Carbon Dioxide Level 23, Anion Gap 15, Blood Urea Nitrogen 37H, Creatinine 2.2H, Estimat Glomerular Filtration Rate , Glucose Level 101, Uric Acid 6.4, Calcium Level 8.7, Phosphorus Level 3.0, Magnesium Level 1.7, Total Bilirubin 0.3, Aspartate Amino Transf (AST/SGOT) 17, Alanine Aminotransferase ( ALT/SGPT) 8, Alkaline Phosphatase 70, C-Reactive Protein, Quantitative 3.8H, Pro -B-Type Natriuretic Peptide 1989H, Total Protein 7.3, Albumin 3.3L, Globulin 4.0 , Albumin/Globulin Ratio 0.8L Height (Feet): 6 Height (Inches): 0.00 Weight (Pounds): 180 General Appearance: no apparent distress Respiratory/Chest: decreased breath sounds Objective other PE not changed MARIA M YU Apr 17, 2016 13:51
--- NOTE | 2016-04-17 15:03 | Cardiac Electrophysiology PN ---
Assessment/Plan Status: stable, progressing Status Narrative Mr Ybarra has permanent atrial fibrillation. Ventricular rates are now controlled w/ digoxin, dilitiazem and metoprolol. He had uncontrolled rates on b matthew alone His ventricular function has improved, to 60s, compared to previous ECHO. There is a ? of small echo density on mitral valve leaflet - doubt vegetation , as pt w/ negative blood cultures, afebrile and nl wbc Assessment/Plan Will stop digoxin - ef normal and ventr rates normal in aF , on b matthew and diltiazem Continue warfarin - INR therapeutic Hold lasix for now. Would not favor AJAY unless new evidence to suggest endocarditis (fever, bacteremia, elev wbc) dc plan per primary MD Subjective ROS Limited/Unobtainable: No Subjective Pt continues w/ cough. no c/o dyspnea or palpitations Objective Last 24 Hour Vital Signs Date Time Temp Pulse Resp B/P Pulse Ox O2 Delivery O2 Flow Rate FiO2 04/17/16 13:51 130/75 04/17/16 13:51 130/75 04/17/16 12:14 77 134/76 04/17/16 12:00 98.0 98 24 136/78 24 Room Air 04/17/16 12:00 85 04/17/16 08:28 89 04/17/16 08:27 89 131/83 04/17/16 08:00 98.8 102 26 131/83 99 Room Air 04/17/16 08:00 96 04/17/16 06:31 72 117/60 04/17/16 06:31 117/60 04/17/16 06:31 117/60 04/17/16 04:15 98.8 78 21 118/77 94 Room Air 04/17/16 04:00 80 04/17/16 00:59 76 120/60 04/17/16 00:34 98.3 68 20 117/67 97 Room Air 04/17/16 00:00 71 04/16/16 22:00 74 04/16/16 21:42 76 129/76 04/16/16 21:37 129/76 04/16/16 21:36 129/76 04/16/16 20:00 97.2 76 15 129/76 97 Room Air 04/16/16 17:46 74 118/68 04/16/16 16:00 70 04/16/16 16:00 97.5 63 16 118/68 99 Room Air General Appearance: WD/WN, no apparent distress, alert EENT: PERRL/EOMI Neck: supple, no JVD Rhythm: Afib Cardiovascular: normal rate, no gallop/murmur, irregularly irregular Respiratory/Chest: other - coarse BS no wheezes, rales Extremities: no swelling Neurologic: other - R hemiparesis Intake and Output 04/16/16 04/17/16 19:00 07:00 Intake Total 240 ml 50 ml Output Total 500 ml 200 ml Balance -260 ml -150 ml Intake Oral 240 ml IV Total 50 ml Output Urine Total 500 ml 200 ml # Voids 1 Laboratory Tests Test 04/17/16 05:35 04/17/16 07:15 Urine Eosinophils None seen White Blood Count 6.6 K/UL (4.8-10.8) Red Blood Count 3.50 M/UL (4.70-6.10) L Hemoglobin 9.8 G/DL (14.2-18.0) L Hematocrit 31.4 % (42.0-52.0) L Mean Corpuscular Volume 90 FL (80-99) Mean Corpuscular Hemoglobin 28.1 PG (27.0-31.0) Mean Corpuscular Hemoglobin Concent 31.3 G/DL (32.0-36.0) L Red Cell Distribution Width 15.9 % (11.6-14.8) H Platelet Count 166 K/UL (150-450) Mean Platelet Volume 6.9 FL (6.5-10.1) Neutrophils (%) (Auto) 45.9 % (45.0-75.0) Lymphocytes (%) (Auto) 34.9 % (20.0-45.0) Monocytes (%) (Auto) 12.8 % (1.0-10.0) H Eosinophils (%) (Auto) 5.2 % (0.0-3.0) H Basophils (%) (Auto) 1.2 % (0.0-2.0) Sodium Level 142 mEQ/L (135-145) Potassium Level 4.3 mEQ/L (3.4-4.9) Chloride Level 104 mEQ/L (98-107) Carbon Dioxide Level 23 mEQ/L (20-30) Anion Gap 15 (5-15) Blood Urea Nitrogen 37 mg/dL (7-23) H Creatinine 2.2 mg/dL (0.7-1.2) H Estimat Glomerular Filtration Rate mL/min (>60) Glucose Level 101 mg/dL (74-106) Uric Acid 6.4 mg/dL (3.0-7.5) Calcium Level 8.7 mg/dL (8.6-10.2) Phosphorus Level 3.0 mg/dL (2.5-4.8) Magnesium Level 1.7 mg/dL (1.7-2.5) Total Bilirubin 0.3 mg/dL (0.0-1.2) Aspartate Amino Transf (AST/SGOT) 17 U/L (5-40) Alanine Aminotransferase (ALT/SGPT) 8 U/L (3-41) Alkaline Phosphatase 70 U/L (40-129) C-Reactive Protein, Quantitative 3.8 mg/dL (< 0.5) H Pro-B-Type Natriuretic Peptide 1989 pg/mL (0-450) H Total Protein 7.3 g/dL (6.6-8.7) Albumin 3.3 g/dL (3.5-5.2) L Globulin 4.0 g/dL Albumin/Globulin Ratio 0.8 (1.0-2.7) L DESIREE ROMERO Apr 17, 2016 15:03
[2016-04-17 16:00] VITALS: BP 124/82
[2016-04-17] MEDS ORDERED: NS 275ml ONE (16:07)
[2016-04-17] MEDS ORDERED: Tubing IV Secondary IV ONE (16:07)
--- NOTE | 2016-04-17 16:14 | Infectious Diseases Prog Note ---
Assessment/Plan Assessment/Plan ASSESSMENT: 80 y/o male with: // Chronic cough ?PND ?asthma ?allergic - CXR 04/16: No evidence of acute cardiopulmonary disease, unchanged. Stable chronic changes - negative: influenza, legionella UAg // Afebrile without leukocytosis // Suspect acute on chronic systolic and diastolic CHF exacerbation > HCAP, aspiration - h/o ICMO, trop(-) x1, BNP 1796 - TTE 05/2014: EF 35-40%, grade I diastolic dysfunction, mod MR, TR, pulmonary HTN // Vascular dementia, h/o CVA // ARF on CKD3 // Seizure disorder // A-fib // h/o MRSA colonization // Previous DNR PLAN: - Monitor pt off of ABX ( SP cefepime d# 5 ) ( 04/13 SP IV vancomycin d# 2 ) - f/u final cultures - monitor CBC, temperatures - monitor BMP - monitor CXR Subjective Constitutional: Denies: anorexia, chills, drenching sweats, fatigue, fever, no symptoms, other Allergies: Coded Allergies: MARYANA INHIBITORS (Unverified Allergy, Unknown, 01/31/14) ARB-ANGIOTENSIN RECEPTOR ANTAGONIST (Unverified Allergy, Unknown, 01/31/14) Objective Vital Signs Last 24 Hour Vital Signs Date Time Temp Pulse Resp B/P Pulse Ox O2 Delivery O2 Flow Rate FiO2 04/17/16 13:51 130/75 04/17/16 13:51 130/75 04/17/16 12:14 77 134/76 04/17/16 12:00 98.0 98 24 136/78 24 Room Air 04/17/16 12:00 85 04/17/16 08:28 89 04/17/16 08:27 89 131/83 04/17/16 08:00 98.8 102 26 131/83 99 Room Air 04/17/16 08:00 96 04/17/16 06:31 72 117/60 04/17/16 06:31 117/60 04/17/16 06:31 117/60 04/17/16 04:15 98.8 78 21 118/77 94 Room Air 04/17/16 04:00 80 04/17/16 00:59 76 120/60 04/17/16 00:34 98.3 68 20 117/67 97 Room Air 04/17/16 00:00 71 04/16/16 22:00 74 04/16/16 21:42 76 129/76 04/16/16 21:37 129/76 04/16/16 21:36 129/76 04/16/16 20:00 97.2 76 15 129/76 97 Room Air 04/16/16 17:46 74 118/68 Height (Feet): 6 Height (Inches): 0.00 Weight (Pounds): 180 HEENT: anicteric Respiratory/Chest: no respiratory distress Cardiovascular: no gallop/murmur Genitourinary: normal external genitalia Laboratory Tests Test 04/17/16 05:35 04/17/16 07:15 Urine Eosinophils None seen White Blood Count 6.6 K/UL (4.8-10.8) Red Blood Count 3.50 M/UL (4.70-6.10) L Hemoglobin 9.8 G/DL (14.2-18.0) L Hematocrit 31.4 % (42.0-52.0) L Mean Corpuscular Volume 90 FL (80-99) Mean Corpuscular Hemoglobin 28.1 PG (27.0-31.0) Mean Corpuscular Hemoglobin Concent 31.3 G/DL (32.0-36.0) L Red Cell Distribution Width 15.9 % (11.6-14.8) H Platelet Count 166 K/UL (150-450) Mean Platelet Volume 6.9 FL (6.5-10.1) Neutrophils (%) (Auto) 45.9 % (45.0-75.0) Lymphocytes (%) (Auto) 34.9 % (20.0-45.0) Monocytes (%) (Auto) 12.8 % (1.0-10.0) H Eosinophils (%) (Auto) 5.2 % (0.0-3.0) H Basophils (%) (Auto) 1.2 % (0.0-2.0) Sodium Level 142 mEQ/L (135-145) Potassium Level 4.3 mEQ/L (3.4-4.9) Chloride Level 104 mEQ/L (98-107) Carbon Dioxide Level 23 mEQ/L (20-30) Anion Gap 15 (5-15) Blood Urea Nitrogen 37 mg/dL (7-23) H Creatinine 2.2 mg/dL (0.7-1.2) H Estimat Glomerular Filtration Rate mL/min (>60) Glucose Level 101 mg/dL (74-106) Uric Acid 6.4 mg/dL (3.0-7.5) Calcium Level 8.7 mg/dL (8.6-10.2) Phosphorus Level 3.0 mg/dL (2.5-4.8) Magnesium Level 1.7 mg/dL (1.7-2.5) Total Bilirubin 0.3 mg/dL (0.0-1.2) Aspartate Amino Transf (AST/SGOT) 17 U/L (5-40) Alanine Aminotransferase (ALT/SGPT) 8 U/L (3-41) Alkaline Phosphatase 70 U/L (40-129) C-Reactive Protein, Quantitative 3.8 mg/dL (< 0.5) H Pro-B-Type Natriuretic Peptide 1989 pg/mL (0-450) H Total Protein 7.3 g/dL (6.6-8.7) Albumin 3.3 g/dL (3.5-5.2) L Globulin 4.0 g/dL Albumin/Globulin Ratio 0.8 (1.0-2.7) L Current Medications Medications (Trade) Dose Ordered Sig/Con Route PRN Reason Start Time Stop Time Status Last Admin Dose Admin Acetaminophen (Tylenol) 650 mg Q4H PRN ORAL fever 04/12/16 15:45 05/12/16 15:44 Allopurinol (Zyloprim) 100 mg DAILY ORAL 04/16/16 09:00 05/16/16 08:59 04/17/16 08:27 Digoxin (Lanoxin) 0.125 mg DAILY ORAL 04/13/16 09:00 05/13/16 08:59 04/17/16 08:28 Diltiazem HCl (Cardizem) 60 mg EVERY 6 HOURS ORAL 04/14/16 07:00 05/14/16 06:59 04/17/16 12:14 Hydralazine HCl (Apresoline) 25 mg Q8HR ORAL 04/13/16 22:00 05/13/16 21:59 04/17/16 13:51 Isosorbide Dinitrate (Isordil) 10 mg Q8HR ORAL 04/13/16 22:00 05/13/16 21:59 04/17/16 13:51 Levetiracetam (Keppra) 1,000 mg Q12HR ORAL 04/12/16 21:00 05/12/16 20:59 04/17/16 08:25 Levothyroxine Sodium (Synthroid) 75 mcg DAILY@0630 ORAL 04/16/16 06:30 05/16/16 06:29 04/17/16 06:31 Metoprolol Tartrate (Lopressor) 50 mg Q12HR ORAL 04/16/16 21:00 05/16/16 20:59 04/17/16 08:27 Nitroglycerin (Ntg) 0.4 mg Q5M PRN SL Prn Chest Pain 04/12/16 15:45 05/12/16 15:44 Ondansetron HCl (Zofran) 4 mg Q6H PRN IVP Nausea & Vomiting 04/12/16 15:45 05/12/16 15:44 Polyethylene Glycol (Miralax) 17 gm DAILYPRN PRN ORAL Constipation 04/12/16 15:45 05/12/16 15:44 Promethazine HCl/ Codeine (Phenergan with Codeine) 5 ml Q4H PRN ORAL For Cough 04/12/16 15:45 05/12/16 15:44 04/16/16 13:24 Quetiapine Fumarate (SEROquel) 25 mg Q6HR PRN ORAL Agitation 04/12/16 15:45 05/12/16 15:44 Tamsulosin HCl (Flomax) 0.4 mg BEDTIME ORAL 04/15/16 21:00 05/15/16 20:59 04/16/16 21:05 Temazepam (Restoril) 15 mg HSPRN PRN ORAL Insomnia 04/12/16 15:45 04/19/16 15:44 Tramadol HCl (Ultram) 25 mg TID PRN ORAL For Pain 04/12/16 15:45 04/19/16 15:44 Warfarin Sodium (Coumadin per pharmacy) 1 ea DAILY PRN MISC Per rx protocol 04/13/16 18:45 05/13/16 18:44 Warfarin Sodium (Coumadin) 5 mg COUMADIN ORAL 04/17/16 17:00 04/22/16 16:59 LICHA SCHERER M.D. Apr 17, 2016 16:14
[2016-04-17] MEDS ORDERED: Warfarin Sodium 5mg ORAL SCH (17:00)
[2016-04-17 17:59] VITALS: BP 130/75
[2016-04-18] MEDS ORDERED: KEPPRA1000 MG ORAL (10:45)
[2016-04-18] MEDS ORDERED: PROMETHAZINE-C118 M1 ORAL (10:45)
[2016-04-18] MEDS ORDERED: DUONEB 0.5-3(2.53 ML HHN (10:45)
[2016-04-18] MEDS ORDERED: NITROGLYCERIN0.4 MG SL (10:45)
[2016-04-18] MEDS ORDERED: ISOSORBIDE DINIT5 MG ORAL (10:45)
[2016-04-18] MEDS ORDERED: LEVOTHYROXINE75 MCG ORAL (10:45)
[2016-04-18] MEDS ORDERED: METOPROLOL TART50 MG ORAL (10:45)
[2016-04-18] MEDS ORDERED: HYDRALAZINE HCL25 M1 ORAL (10:45)
[2016-04-18] MEDS ORDERED: ZOFRAN4 M3 ORAL (10:45)
[2016-04-18] MEDS ORDERED: MIRALAX17 GM ORAL (10:45)
[2016-04-18] MEDS ORDERED: CARDIZEM60 MG ORAL (10:45)
[2016-04-18] MEDS ORDERED: TAMSULOSIN HCL0.4 MG ORAL (10:45)
[2016-04-18] MEDS ORDERED: TYLENOL650 MG/20. ORAL (10:46)
[2016-04-18] MEDS ORDERED: TEMAZEPAM30 MG ORAL (10:46)
--- NOTE | 2016-04-19 11:41 | Discharge Summary ---
Discharge Summary Hospital Course Date of Admission Apr 12, 2016 at 14:35 Date of Discharge Apr 17, 2016 at 19:51 Admitting Diagnosis PNEUMONIA,ATRIAL FIB HPI Debbie Ybarra is a 80 year old male who was admitted on Apr 12, 2016 at 14: 35 for Pneumonia, Atrial Fib Hospital Course dc summary dictated # [id number] Discharge Medications Continued Medications: Allopurinol* (Allopurinol*) 100 Mg Tablet 100 MG ORAL DAILY, TAB Digoxin* (Digoxin*) 0.125 Mg/2.5 Ml Solution 0.125 MG ORAL DAILY, ML 0 Refills Diltiazem Hcl (Diltiazem Hcl) 90 Mg Tablet 90 MG PO Q8HR, TAB Docusate Sodium (Docu Soft*) 100 Mg Capsule 100 MG ORAL TID, CAP 0 Refills Ergocalciferol (Vitamin D2)* (Vitamin D*) 50,000 Unit Capsule 94757 UNIT ORAL ONCE A WEEK, CAP Gabapentin* (Neurontin*) 100 Mg Capsule 300 MG ORAL THREE TIMES A DAY, CAP Guaifenesin/Codeine Phos* (Robitussin Ac*) 118 Ml Liquid 10 ML ORAL Q6H PRN for For Cough, #118 ML 0 Refills Hydrocodone Bit/Acetaminophen 5-325* (Letona 5-325 Tablet*) 1 Each Tablet 1 TAB ORAL Q8HR PRN for For Pain, TAB Levetiracetam (Keppra) 1,000 Mg Tablet 1000 MG ORAL Q12HR, #30 TAB 0 Refills Levothyroxine Sodium* (Synthroid*) 100 Mcg Tablet 100 MCG ORAL DAILY, TAB Take in the morning on an empty stomach, at least 30 minutes before food. Lorazepam* (Ativan*) 2 Mg/1 Ml Vial 1 MG IV Q3HR PRN for Agitation, VIAL Metoprolol Tartrate* (Metoprolol Tartrate*) 25 Mg Tablet 25 MG ORAL BID, TAB Mupirocin Calcium (Bactroban) 15 Gm Cream..g. 1 APPLIC TOPIC THREE TIMES A DAY, GM Pantoprazole* (Protonix*) 40 Mg Tablet.dr 40 MG ORAL DAILY, TAB Quetiapine Fumarate* (Seroquel*) 25 Mg Tablet 25 MG ORAL Q6HR PRN for Agitation, TAB Tramadol Hcl (Ultram*) 50 Mg Tablet 25 MG ORAL TID PRN for For Pain, #30 TAB 0 Refills Warfarin Sod* (Coumadin*) 5 Mg Tablet 5 MG ORAL DAILY, TAB Discharge Condition Upon Discharge: improving Discharge Disposition Patient was discharged to SNF/Subacute Facility(03) Discharge Diagnoses: Antony (Julieta)Trish NP Apr 19, 2016 11:41
--- NOTE | 2016-04-20 03:17 | Discharge Summary 2 SIG ---
DATE OF ADMISSION: 04/12/2016 DATE OF DISCHARGE: 04/17/2016 REASON FOR ADMISSION: 80 years old male, who was sent from the snf facility with increased productive cough with gradual onset of symptoms, subsequently worsening. The patient with a prior history of CVA. Workup in the emergency department revealed atrial fibrillation. Chest x-ray with bilateral congestive changes, possible pneumonia. The patient noted to have evidence of renal insufficiency with a BUN of 26 and creatinine of 1.7. The patient was admitted to telemetry floor for further management. ADMITTING DIAGNOSES: Include, 1. Pneumonia. 2. Atrial fibrillation with rapid ventricular response 3, Renal insufficiency 3. Seizure disorder. HOSPITAL COURSE: The patient was admitted to telemetry floor. Cardiology, Pulmonology, ID consult, as well as Nephrology were requested. Cardiology followed the patient. Echocardiogram revealed preserved ejection fraction. The patient has a permanent atrial fibrillation. Ventricular rate was controlled with digoxin, Cardizem, and metoprolol, prior he had uncontrolled rate with beta-matthew. Ventricular function improved per Cardiology , compared to the previous echocardiogram. Current ECHO with preserved ejection fraction. There was a questionable small echodensity noted on mitral valve leaflet. Scrum Project Manager doubted vegetation since the patient with negative blood cultures, afebrile, and no leukocytosis. Scrum Project Manager stopped digoxin since ejection fraction is currently 60%, and the patient continued on beta-matthew and Cardizem. The patient was on anticoagulation/warfarin , INR was therapeutic. Initially, patient was on diuresis. Subsequent chest x-ray showed improvement. Lasix on hold, no further clinical evidence of overload. Scrum Project Manager did not favor AJAY to suggest endocarditis since the patient was afebrile, negative blood culture, no leukocytosis. Unless there would be a new evidence to suggest endocarditis such as fever, bacteremia, and leukocytosis, then AJAY would be appropriate. ID followed the patient. Sputum culture, influenza screen, and blood cultures were all negative. The patient with healthcare associated pneumonia. Respiratory status improved. Supplemental oxygen and pulmonary toilet provided. The patient was on antibiotic initially. Per ID recommendation off antibiotic, observe. Again, the patient was afebrile and no leukocytosis. Interviewing Clerk followed the patient as well. Antitussive were provided as needed along with oxygen therapy and pulmonary toilet. Last chest x-ray revealed no acute cardiopulmonary disease. Nephrology followed the patient for acute renal failure. Renal ultrasound revealed normal echogenicity, no hydronephrosis. Per tail puller, acute renal failure secondary to prerenal azotemia due to the underlying congestive heart failure. Seizure precautions were maintained. Keppra was continued. No evidence of seizure while in the hospital. DVT prophylaxis provided. Bowel regimen instituted. Swallow evaluation was done at the bedside, followed by the video swallow evaluation. The patient with dysphagia. Diet was recommended by speech therapist as a mechanical soft finely chopped with nectar thick liquids with strict aspiration precaution and one-to-one supervision. The patient was stable for discharge back to snf facility per primary medical doctor. Chest x-ray was negative, afebrile, and no leukocytosis. Ventricular rate controlled. DISCHARGE DIAGNOSES: 1. Healthcare-associated pneumonia. 2. Possible aspiration. 3. Atrial fibrillation with rapid ventricular response, resolved. 4. Chronic obstructive pulmonary disease. 5. Acute renal failure, secondary to prerenal azotemia due to the underlying congestive heart failure. 6. History of deep vein thrombosis. 7. Hypertension. 8. Vascular dementia with history of cerebrovascular accident with residual hemiparesis. 9. Seizure disorder. 10. Dysphagia DISCHARGE MEDICATIONS: See medication reconciliation list. DISCHARGE INSTRUCTIONS: The patient discharged to snf facility. The patient is off antibiotics as per ID and observe. Continue the diet as recommended by ST in the snf facility. Ondina Geiger M.D. I have been assigned to dictate discharge summary on this account and I was not involved in the patient's management. Trish Hardy (Vanchtein) NNaomi DR: RUTH JOB#: [id number] CC: HÉCTOR
--- NOTE | 2016-05-07 13:44 | Cardiology Report ---
APPROVED REPORT EXAM: Two-dimensional and M-mode echocardiogram with Doppler and color Doppler. INDICATION Atrial Fibrillation M-Mode DIMENSIONS IVSd0.5 (0.7-1.1cm)Left Atrium (MM)4.7 (1.6-4.0cm) LVDd4.6 (3.5-5.6cm)Aortic Root2.8 (2.0-3.7cm) PWd0.9 (0.7-1.1cm)Aortic Cusp Exc.2.0 (1.5-2.0cm) LVDs3.1 (2.5-4.0cm) PWs0.8 cm Normal left ventricular chamber size, systolic function and wall motion. Left ventricular ejection fraction estimated to be 60-65%. No evidence of left ventricular hypertrophy. No evidence of pericardial fat or effusion. Mild to moderate bi-atrial and right ventricular enlargement by 2D. Focal aortic valve sclerosis with adequate cusp excursion Thickened mitral valve leaflets with normal excursion. Mitral annulus and aortic root calcification. Pulmonic valve not well visualized. Normal tricuspid valve structure. IVC is normal in size physiologic collapse. Small echo density seen on anterior mitral valve leaflet (vegitation). Consider AJAY if clinically indicated. A color flow and spectral Doppler study was performed and revealed: No aortic regurgitation. No mitral regurgitation. Left ventricular diastolic dysfunction not obtainable due to A-FIB. Mild tricuspid regurgitation. Tricuspid systolic velocities suggests peak right ventricular systolic pressure of 31 mmHg Pulmonic regurgitation present.
--- NOTE | 2016-05-12 13:30 | Cardiology Report ---
APPROVED REPORT EKG Measurement Heart [id number] Atrial fibrillation with a competing junctional pacemaker Voltage criteria for left ventricular hypertrophy Cannot rule out Septal infarct, age undetermined Abnormal ECG
--- NOTE | 2016-05-18 22:34 | Physician Query ---
PLEASE COMPLETE THE QUESTION IN RED BEFORE SIGNING THANK YOU Dear Dr. GEIGER Date: 05/18/2016 Inspector Boiler/CDS Name: JASWINDER ANDERS CCS Exercise your independent professional judgment when responding to query. Question asked do not imply a particular answer is desired/expected Clinical Documentation States: "Heart Failure / CHF" documented in Acute renal failure, secondary to prerenal azotemia due to the underlying congestive heart failure, Ventricular rate was controlled with digoxin, Cardizem , and metoprolol,prior he had uncontrolled rate with beta-matthew. Ventricular function improved per Cardiology , compared to the previous echocardiogram. Current ECHO with preserved ejection fraction. There was a questionable small echodensity noted on mitral valve leaflet. Balance Staff Inspector doubted vegetation since the patient with negative blood cultures, afebrile, and no leukocytosis. Balance Staff Inspector stopped digoxin since ejection fraction is currently 60%, and the patient continued on beta-matthew and Cardizem. 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 George _05/20/16 Ondina Geiger M.D. Date & Time [facility]
--- NOTE | 2016-06-26 11:43 | Diagnostic Imaging Report ---
Indications: Dysphagia Technique: Multiphasic barium dysphagia study was performed under fluoroscopic control with Jackelin Pena speech pathologist. Cinegraphic images were obtained. Total fluoroscopy time: 320.2 sec Dose-area product: 0.53 mGy-m2 Findings: Comparison: None Oral and pharyngeal phases of swallowing demonstrate multiple mechanical abnormalities, as enumerated on speech pathology evaluation form. The patient demonstrates laryngeal penetration and tracheal aspiration of thin liquid barium, injected, deep laryngeal penetration of honey thickness barium, injected, superficial laryngeal penetration of and nectar thickness barium, not injected. There is moderate barium coating of pharyngeal structures post swallow.. Esophageal phase of swallowing without retrograde propagation.. IMPRESSION: Abnormal oropharyngeal mechanics with laryngeal penetration of multiple consistencies of barium, tracheal aspiration of thin liquid barium. Moderate post swallow pharyngeal residue Esophageal dysmotility without obvious reverse peristalsis. Recommendation per speech pathology evaluation form.
== END 2016-04-17 19:51 | disposition home or self-care (01) | DRG 193 ==
LOC: EDUNIT# 12:54 → EDBD 12:54 → EMR 14:11 → 2E 14:35 → EDBEDREQ 14:47 → 2E 04-14 22:41
DX: J18.9 Pneumonia, unspecified organism (principal); I50.43 Acute on chronic combined systolic (congestive) and diastolic (congestive) heart failure; N17.9 Acute kidney failure, unspecified; I27.2 Other secondary pulmonary hypertension; I42.9 Cardiomyopathy, unspecified; I69.351 Hemiplegia and hemiparesis following cerebral infarction affecting right dominant side; E83.42 Hypomagnesemia; G40.409 Other generalized epilepsy and epileptic syndromes, not intractable, without status epilepticus; I48.2 Chronic atrial fibrillation; I13.0 Hypertensive heart and chronic kidney disease with heart failure and stage 1 through stage 4 chronic kidney disease, or unspecified chronic kidney disease; F01.50 Vascular dementia, unspecified severity, without behavioral disturbance, psychotic disturbance, mood disturbance, and anxiety; Z22.322 Carrier or suspected carrier of Methicillin resistant Staphylococcus aureus; N18.3 Chronic kidney disease, stage 3 (moderate); Y95 Nosocomial condition; M10.9 Gout, unspecified; E03.9 Hypothyroidism, unspecified; J44.9 Chronic obstructive pulmonary disease, unspecified; F20.9 Schizophrenia, unspecified; R13.10 Dysphagia, unspecified; Z86.718 Personal history of other venous thrombosis and embolism
CPT/HCPCS: 36415; 71010; 74230; 76775; 80053; 80061; 80069; 80162; 80202; 81003; 82164; 82550; 82553; 82607; 82746; 82977; 83036; 83605; 83735; 83880; 84100; 84300; 84443; 84484; 84550; 85025; 85610; 85730; 86140; 86710; 87040; 87070; 87205; 89050; 93005; 93306

== ENCOUNTER 2016-04-18 10:23 | Inpatient (IN) | payer MEDICARE, MEDICAID ==
[~2016-04-18] VITALS: Ht 182.9 cm; Wt 99.8 kg
[~2016-04-18 10:23] MED LIST changes: +BACTROBAN CR1 APPLIC TOPIC; +GUAIFENESIN-CO118 M1 ORAL; +NEURONTIN100 MG ORAL; +NORCO 5-325 TA1 EAC1 ORAL
[2016-04-18 10:24] VITALS: BP 151/80
[2016-04-18] MEDS ORDERED: LORazepam Inj 2mg/ml 1ml IV ONE (10:30)
[2016-04-18] MEDS ORDERED: levETIRAcetam 500 MG in D5W 110 ML IV ONE (10:30)
[2016-04-18] MEDS ORDERED: levETIRAcetam 500mg vial IV ONE ×2 (10:40→15:02)
[2016-04-18] MEDS ORDERED: LEVOTHYROXINE75 MCG ORAL (10:45)
[2016-04-18] MEDS ORDERED: PROMETHAZINE-C118 M1 ORAL (10:45)
[2016-04-18] MEDS ORDERED: DUONEB 0.5-3(2.53 ML HHN (10:45)
[2016-04-18] MEDS ORDERED: TAMSULOSIN HCL0.4 MG ORAL (10:45)
[2016-04-18] MEDS ORDERED: NITROGLYCERIN0.4 MG SL (10:45)
[2016-04-18] MEDS ORDERED: METOPROLOL TART50 MG ORAL (10:45)
[2016-04-18] MEDS ORDERED: CARDIZEM60 MG ORAL (10:45)
[2016-04-18] MEDS ORDERED: MIRALAX17 GM ORAL (10:45)
[2016-04-18] MEDS ORDERED: HYDRALAZINE HCL25 M1 ORAL (10:45)
[2016-04-18] MEDS ORDERED: ISOSORBIDE DINIT5 MG ORAL (10:45)
[2016-04-18] MEDS ORDERED: KEPPRA1000 MG ORAL (10:45)
[2016-04-18] MEDS ORDERED: ZOFRAN4 M3 ORAL (10:45)
--- NOTE | 2016-04-18 10:45 | Emergency Room Report ---
History of Present Illness General Chief Complaint: Seizure Source: Medical Record, EMS Present Illness HPI Chronically ill gentleman who was released from this hospital yesterday to nursing, rehabilitation facility. Brought in from this facility by ambulance for complaints of right-sided tremor as well as tachycardia. At baseline he has a history of CVA with right-sided deficit, epilepsy, dementia, hypertension , chronic atrial fibrillation for which they had to use metoprolol and digoxin and diltiazem apparently on his last visit. He is on warfarin, he is on Keppra for seizures. He is not a historian and cannot give a review of systems, all information is from record review as well as discussion with EMS at this time. Blood sugar was reported in the field that over 260, and atrial fibrillation on the monitor. Allergies: Coded Allergies: MARYANA INHIBITORS (Unverified Allergy, Unknown, 01/31/14) ARB-ANGIOTENSIN RECEPTOR ANTAGONIST (Unverified Allergy, Unknown, 01/31/14) Uncoded Allergies: MARYANA (Allergy, Unknown, 04/18/16) AGIOTENSIN-RECEPTOR BLOCKERS (Allergy, Unknown, 04/18/16) Patient History Limited by: medical condition - dementia Past Medical History: see triage record, old chart reviewed, DM, HTN, CAD, CHF , AFib, CVA/TIA, dementia, seizures Social History: Denies: alcohol use, drug use, smoking Immunizations: UTD Reviewed Nursing Documentation: PMH: Agreed Nursing Documentation-PMH Hx Cardiac Problems: Yes - A-fib; cardiomegaly Hx Hypertension: Yes Hx Cancer: No Hx Gastrointestinal Problems: No Hx Dialysis: No - Renal failure Hx Neurological Problems: Yes - Encephalapathy Hx Cerebrovascular Accident: Yes Hx Dementia: Yes Hx Seizures: Yes Hx Weakness: Yes Review of Systems All Other Systems: limited - patient is now provide history Physical Exam Vital Signs Date Time Temp Pulse Resp B/P Pulse Ox O2 Delivery O2 Flow Rate FiO2 04/18/16 10:13 100.0 160 24 151/80 98 Room Air Sp02 EP Interpretation: reviewed, abnormal - tachycardic, febrile General Appearance: severe distress, cachetic, other - right-sided shacking, tremmor in both extremities, Chronically Ill Eyes: bilateral eye PERRL ENT: hearing 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, no angioedema, dry mucus membranes Neck: supple Respiratory: chest non-tender, no rhonchi, no respiratory distress Cardiovascular #1: no murmur, JVD, tachycardia Cardiovascular #2: 1+ carotid (R), 1+ carotid (L) Gastrointestinal: soft, no mass, no organomegaly, no bruit Rectal: deferred Musculoskeletal: other - generalized right-sided shaking, signs of contracture and extremities Neurologic: alert, responsive, other - partial seizure activity Skin: warm/dry Lymphatic: no adenopathy Procedures Critical Care Time Critical Care Time 65 minutes of critical care time, excluding procedures, this involves initial evaluation of the patient, extensive record review, initial resuscitation to include fluids, antiseizure medications, determining response to this as well as treatment for atrial fibrillation and further workup as well as reassessments. As well as discussion with primary treating doctors, Dr. Miranda Medical Decision Making Diagnostic Impression: Primary Impression: Epileptic seizure, generalized Additional Impressions: Atrial fibrillation with RVR Convulsive generalized seizure disorder Afib Dementia, vascular stroke L MCA, subacute, ischemic Acute renal failure Altered level of consciousness ER Course Patient brought in with severe seizure and atrial fibrillation, with RVR. Just released yesterday after treatment for hospital acquired pneumonia, patient is unable to provide history, his vitals are stable in terms of heart rate as well as tachypnea and overall generalized convulsions. We rapidly obtained access and gave anticonvulsant, Ativan. Patient will be given IV fluid boluses, bolused with Keppra and RVR will be treated with possible digoxin/diltiazem or metoprolol based on best response to initial treatment with Cardizem. Patient has just left the hospital in this acute changes unlikely to allow him to return to the nursing facility, I merely spoke with , to understands he is return to the ED and is likely a require admission to the telemetry your EDER level. Patient was treated acutely for seizure, tachycardia, atrial fibrillation. There's been some improvement after IV fluids, Ativan, ketamine loading as well as Cardizem IV push to improve his overall heart rate to 1:15 and no longer seizure activity. Continued signs of dementia, acute renal failure and some altered level of consciousness, slightly postictal. Discussed with . Discussed with Dr. Rosario, who understands patient should be admitted to the hospital I believe at his base he would likely benefit from a EDER or telemetry service. Laboratory Tests Test 04/18/16 10:34 White Blood Count 8.2 K/UL (4.8-10.8) Red Blood Count 4.06 M/UL (4.70-6.10) L Hemoglobin 11.6 G/DL (14.2-18.0) L Hematocrit 37.1 % (42.0-52.0) L Mean Corpuscular Volume 91 FL (80-99) Mean Corpuscular Hemoglobin 28.5 PG (27.0-31.0) Mean Corpuscular Hemoglobin Concent 31.2 G/DL (32.0-36.0) L Red Cell Distribution Width 15.6 % (11.6-14.8) H Platelet Count 189 K/UL (150-450) Mean Platelet Volume 7.0 FL (6.5-10.1) Neutrophils (%) (Auto) 72.3 % (45.0-75.0) Lymphocytes (%) (Auto) 18.1 % (20.0-45.0) L Monocytes (%) (Auto) 6.6 % (1.0-10.0) Eosinophils (%) (Auto) 1.9 % (0.0-3.0) Basophils (%) (Auto) 1.1 % (0.0-2.0) Prothrombin Time 23.3 SEC (9.30-11.50) H Prothromb Time International Ratio 2.2 (0.9-1.1) H Activated Partial Thromboplast Time 32 SEC (23-33) Sodium Level 137 mEQ/L (135-145) Potassium Level 5.0 mEQ/L (3.4-4.9) H Chloride Level 99 mEQ/L (98-107) Carbon Dioxide Level 18 mEQ/L (20-30) L Anion Gap 20 (5-15) H Blood Urea Nitrogen 32 mg/dL (7-23) H Creatinine 2.0 mg/dL (0.7-1.2) H Estimat Glomerular Filtration Rate mL/min (>60) Glucose Level 242 mg/dL (74-106) #H Lactic Acid Level 4.20 mmol/L (0.66-2.22) H Calcium Level 9.2 mg/dL (8.6-10.2) Total Bilirubin 0.3 mg/dL (0.0-1.2) Aspartate Amino Transf (AST/SGOT) 25 U/L (5-40) Alanine Aminotransferase (ALT/SGPT) 11 U/L (3-41) Alkaline Phosphatase 81 U/L (40-129) Troponin I < 0.30 ng/mL (<=0.30) Total Protein 8.2 g/dL (6.6-8.7) Albumin 3.6 g/dL (3.5-5.2) Globulin 4.6 g/dL Albumin/Globulin Ratio 0.7 (1.0-2.7) L Digoxin Level 1.5 ng/mL (0.5-2.0) Lab Results Impression elevated lactate, low CO2 levels EKG Diagnostic Results EKG Time: 10:19 EP Interpretation: atrial fibrillation, rvr, rate 146 Rate: tachycardiac ST Segments: other - uncertain ST changes, non-specific ASA given to the pt in ED: No - patient on coumadin Rhythm Strip Diag. Results Rhythm Strip Time: 10:45 Rate: 160 Rhythm: no PVC's, no ectopy, other - atrial fibrilation, rvr Chest X-Ray Diagnostic Results Time: 11:20 EP Interpretation: No Findings: no effusion, no pneumothorax, no acute cardiopulmonary disease, other - reportedly unchanged, from 04/16, no active infiltrates Number of Views: 1 CT/MRI/US Diagnostic Results CT/MRI/US Diagnostic Results : Imaging Test Ordered: CT head, w/o contrast Impression Stable, chronic changes, no acute process. Reevaluation Time: 12:01 Last Vital Signs Date Time Temp Pulse Resp B/P Pulse Ox O2 Delivery O2 Flow Rate FiO2 04/18/16 10:13 100.0 160 24 151/80 98 Room Air Status: improved Reevaluation Impression Patient no longer seizing, heart rate of approximately 115, atrial fibrillation , blood pressure and saturations stable. Disposition: ADMITTED INPATIENT Admit Decision Time: 12:01 Condition: Critical Gibson Juarez MD Apr 18, 2016 10:45
[2016-04-18] MEDS ORDERED: TYLENOL650 MG/20. ORAL (10:46)
[2016-04-18] MEDS ORDERED: TEMAZEPAM30 MG ORAL (10:46)
[2016-04-18] MEDS ORDERED: Tubing IV Secondary IV ONE (10:51)
[2016-04-18 10:55] LABS: BASOPHILS % (AUTO) 1.1 % (0.0-2.0); EOSINOPHILS % (AUTO) 1.9 % (0.0-3.0); LYMPHOCYTES % (AUTO) 18.1 % (20.0-45.0); MEAN CORPUSCULAR HEMOGLOBIN 28.5 PG (27.0-31.0); MEAN CORPUSCULAR HGB CONC 31.2 G/DL (32.0-36.0); MEAN CORPUSCULAR VOLUME 91 FL (80-99); MONOCYTES % (AUTO) 6.6 % (1.0-10.0); NEUTROPHILS % (AUTO) 72.3 % (45.0-75.0); PLATELET COUNT 189 K/UL (150-450); RED BLOOD COUNT 4.06 M/UL (4.70-6.10); RED CELL DISTRIBUTION WIDTH 15.6 % (11.6-14.8); WHITE BLOOD COUNT 8.2 K/UL (4.8-10.8)
[2016-04-18 11:01] LABS: INR 2.2 (0.9-1.1); PROTHROMBIN TIME 23.3 SEC (9.30-11.50)
[2016-04-18 11:14] LABS: ALANINE AMINOTRANSFERASE 11 U/L (3-41); ALBUMIN/GLOBULIN RATIO 0.7 (1.0-2.7); ANION GAP 20 (5-15); ASPARTATE AMINO TRANSFERASE 25 U/L (5-40); CALCIUM 9.2 mg/dL (8.6-10.2); CARBON DIOXIDE 18 mEQ/L (20-30); CHLORIDE 99 mEQ/L (98-107); HEMOLYSIS 47; SODIUM 137 mEQ/L (135-145); TOTAL PROTEIN 8.2 g/dL (6.6-8.7); TROPONIN I < 0.30 ng/mL (<=0.30)
[2016-04-18] MEDS ORDERED: Diltiazem 25mg/5ml IV ONE ×2 (11:15→16:00)
[2016-04-18 11:24] LABS: DIGOXIN 1.5 ng/mL (0.5-2.0)
[2016-04-18 11:31] LABS: REFLEX LACTIC ACID YES OR NO YES
[2016-04-18] MEDS: Diltiazem 25mg/5ml IV ONE ×2 (11:36→14:08)
--- NOTE | 2016-04-18 11:46 | Diagnostic Imaging Report ---
Indication: Seizure Technique: Continuous helical CT scanning of the head was performed utilizing automated exposure control without intravenous contrast material. Axial and coronal reconstructions were obtained. Comparison: 05/05/15 CT dose: Total DLP 1493 mGycm; CTDI vol 70.4 mGy Findings: There is no acute intracranial hemorrhage, mass effect or cortical edema. The ventricles, cisterns and sulci are stable. Periventricular hypoattenuation is again noted suggestive of chronic ischemic microvascular changes. There is an old infarct of the left occipital lobe. Right periventricular punctate calcification is unchanged. The posterior fossa and fourth ventricle are unremarkable. Sellar and suprasellar regions are grossly unremarkable. There is mild mucosal thickening of paranasal sinuses. No focal lesions of the bony calvarium or soft tissues of the scalp are seen. Impression: No evidence of acute intracranial hemorrhage, mass effect or cortical edema. MRI may be obtained for more sensitive evaluation as clinically indicated. Stable chronic intracranial findings as above. The CT scanner at [facility] is accredited by the [employer] and the scans are performed using protocols designed to limit radiation exposure to as low as reasonably achievable to attain images of sufficient resolution adequate for diagnostic evaluation.
--- NOTE | 2016-04-18 11:46 | Diagnostic Imaging Report ---
Indication: Shortness of breath Technique: XRAY CHEST 1 V Comparison: 04/16/16 Findings: Cardiomediastinal silhouette is stable. Mild central interstitial prominence is again noted. Calcified granuloma projects over the left base. Atherosclerotic changes are present. Osseous structures are stable. Impression: No interval change from 04/16/16.
[2016-04-18 12:34] VITALS: BP 146/78
[2016-04-18 13:04] LABS: APPEARANCE,URINE CLEAR; KETONES,URINE NEGATIVE (NEGATIVE); LEUKOCYTE ESTERASE ,URINE NEGATIVE (NEGATIVE); NITRITE,URINE NEGATIVE (NEGATIVE); PH,URINE 5 (4.5-8.0); PROTEIN,URINE 2+ (NEGATIVE); UROBILINOGEN,URINE NORMAL MG/DL (0.0-1.0)
[2016-04-18] MEDS ORDERED: Metoprolol 5mg/5ml Inj IVP ONE (13:15)
[2016-04-18 13:17] LABS: BACTERIA,URINE FEW /HPF; RBC,URINE 0-2 /HPF (0 - 0); SQUAMOUS EPITHELIAL CELL,UR OCCASIONAL /LPF (NONE/OCC); WBC,URINE 0-2 /HPF (0 - 0)
[2016-04-18] MEDS ORDERED: levETIRAcetam 500 MG in D5W 110 ML IVPB ONE (14:45)
--- NOTE | 2016-04-18 14:52 | Neurology Progress Note ---
Objective Physical Exam Last Vital Signs Date Time Temp Pulse Resp B/P Pulse Ox O2 Delivery O2 Flow Rate FiO2 04/18/16 14:08 147 202/111 04/18/16 12:34 100.0 29 98 Room Air Laboratory Tests Test 04/18/16 10:34 04/18/16 12:15 04/18/16 12:49 White Blood Count 8.2 K/UL (4.8-10.8) Red Blood Count 4.06 M/UL (4.70-6.10) L Hemoglobin 11.6 G/DL (14.2-18.0) L Hematocrit 37.1 % (42.0-52.0) L Mean Corpuscular Volume 91 FL (80-99) Mean Corpuscular Hemoglobin 28.5 PG (27.0-31.0) Mean Corpuscular Hemoglobin Concent 31.2 G/DL (32.0-36.0) L Red Cell Distribution Width 15.6 % (11.6-14.8) H Platelet Count 189 K/UL (150-450) Mean Platelet Volume 7.0 FL (6.5-10.1) Neutrophils (%) (Auto) 72.3 % (45.0-75.0) Lymphocytes (%) (Auto) 18.1 % (20.0-45.0) L Monocytes (%) (Auto) 6.6 % (1.0-10.0) Eosinophils (%) (Auto) 1.9 % (0.0-3.0) Basophils (%) (Auto) 1.1 % (0.0-2.0) Prothrombin Time 23.3 SEC (9.30-11.50) H Prothromb Time International Ratio 2.2 (0.9-1.1) H Activated Partial Thromboplast Time 32 SEC (23-33) Sodium Level 137 mEQ/L (135-145) Potassium Level 5.0 mEQ/L (3.4-4.9) H Chloride Level 99 mEQ/L (98-107) Carbon Dioxide Level 18 mEQ/L (20-30) L Anion Gap 20 (5-15) H Blood Urea Nitrogen 32 mg/dL (7-23) H Creatinine 2.0 mg/dL (0.7-1.2) H Estimat Glomerular Filtration Rate mL/min (>60) Glucose Level 242 mg/dL (74-106) #H Lactic Acid Level 4.20 mmol/L (0.66-2.22) H 3.10 mmol/L (0.66-2.22) H Calcium Level 9.2 mg/dL (8.6-10.2) Total Bilirubin 0.3 mg/dL (0.0-1.2) Aspartate Amino Transf (AST/SGOT) 25 U/L (5-40) Alanine Aminotransferase (ALT/SGPT) 11 U/L (3-41) Alkaline Phosphatase 81 U/L (40-129) Troponin I < 0.30 ng/mL (<=0.30) Total Protein 8.2 g/dL (6.6-8.7) Albumin 3.6 g/dL (3.5-5.2) Globulin 4.6 g/dL Albumin/Globulin Ratio 0.7 (1.0-2.7) L Digoxin Level 1.5 ng/mL (0.5-2.0) Urine Color Pale yellow Urine Appearance Clear Urine pH 5 (4.5-8.0) Urine Specific [place] 1.010 (1.005-1.035) Urine Protein 2+ (NEGATIVE) H Urine Glucose (UA) Negative (NEGATIVE) Urine Ketones Negative (NEGATIVE) Urine Occult Blood 1+ (NEGATIVE) H Urine Nitrite Negative (NEGATIVE) Urine Bilirubin Negative (NEGATIVE) Urine Urobilinogen Normal MG/DL (0.0-1.0) Urine Leukocyte Esterase Negative (NEGATIVE) Urine RBC 0-2 /HPF (0 - 0) H Urine WBC 0-2 /HPF (0 - 0) Urine Squamous Epithelial Cells Occasional /LPF Urine Bacteria Few /HPF (NONE) Impression/Recommendations Problems: (1) partial complex sz , exacerbation (2) Atrial fibrillation with RVR (3) Arterial ischemic stroke, MCA (middle cerebral artery), left, chronic Status: unchanged Recommendations #[id number] DARON SO Apr 18, 2016 14:52
[2016-04-18 15:04] VITALS: BP 182/104
[2016-04-18 15:33] VITALS: BP 182/104
[2016-04-18 16:52] VITALS: BP_SYST 173; BP_SYST 190; BP_DIAS 90; BP_DIAS 98
--- NOTE | 2016-04-18 17:56 | Consultation ---
Consult Note Assessment/Plan Cardiology/ cardiac EP for Dr. Alexander Full note dictated #[id number] DESIREE ROMERO Apr 18, 2016 17:56
--- NOTE | 2016-04-18 19:08 | History & Physical ---
History and Physical History & Physicial orders in cpoe. Dictation completed Ondina Geiger MD Apr 18, 2016 19:08
[2016-04-18 20:00] VITALS: BP 164/110
[2016-04-18] MEDS ORDERED: Heparin 5000 units/ml inj SUBQ SCH (21:00)
[2016-04-18] MEDS: HydrALAZINE 25mg tab ORAL SCH (21:35)
[2016-04-18] MEDS: Tamsulosin 0.4mg cap ORAL SCH (21:35)
[2016-04-18] MEDS: Metoprolol 50mg tab ORAL SCH (21:35)
[2016-04-19] VITALS: BP 130/93
[2016-04-19 04:00] VITALS: BP 136/90
--- NOTE | 2016-04-19 04:07 | Consultation ---
DATE OF CONSULTATION: 04/18/2016 NEUROLOGICAL CONSULTATION CONSULTING PHYSICIAN: Jose Blunt M.D. REQUESTING PHYSICIAN: Ondina Geiger M.D. HISTORY OF PRESENT ILLNESS: The patient is a 80-year-old man, who was yesterday discharged from this facility, now admitted to the emergency room after he developed, witnessed by medical staff, intermittent jerking of his right lower extremity. On arrival, the patient was given Ativan and shaking stopped, but the patient remained with changes in mental status. At this point, a stat neuro consult was requested to assess ongoing seizure activities. According to the patient's , who was present during this examination, he had his first life seizure two years ago and when in 2013, he had a stroke with right hemiplegia, overall there were two generalized seizures with the last one, [id number]-[id number]-half years ago. He is being maintained on anticonvulsants with Keppra 1000 mg b.i.d. On admission, the patient is maintained on anticoagulation and on admission, stat CT scan of the brain was obtained, this revealed no evidence of acute intracranial hemorrhage, there was periventricular hypoattenuation suggestive of chronic ischemic microvascular disease and old infarct in the left occipital lobe. Lab work on admission included CBC study with hemoglobin 11.6 and hematocrit 37.1. Coagulation panel with INR 2.2 and PT of 23.3 Chemistry panel, elevated lactic acid at 4.20, BUN of 32, creatinine 2.0, blood sugar 242, and potassium 5.0. Normal troponin. Since admission till present, there was no further paroxysmal event. PAST MEDICAL HISTORY: The patient has a history of chronic kidney disease, stroke with right hemiplegia, history of cardiomyopathy with ejection fraction of 25%, history of atrial fibrillation, now on Coumadin, history of neuropathic pain, and cognitive loss. TREATMENT PRIOR TO ADMISSION: Included albuterol, allopurinol, digoxin, diltiazem, levothyroxine, Keppra, metoprolol, Seroquel, and warfarin. Current treatment included diltiazem, lorazepam, and pantoprazole. ALLERGIES: MARYANA inhibitors. SOCIAL HISTORY: Lives in a nursing facility. No alcohol or drug abuse. FAMILY HISTORY: Noncontributory. REVIEW OF SYMPTOMS: Unable to be obtained due to the patient's status. PHYSICAL EXAMINATION: GENERAL: A well-developed, well-nourished man, found to be asleep, lying in bed. VITAL SIGNS: Blood pressure 202/111 and heart rate of 127. HEENT: Head, normocephalic. No evidence of injuries. Eyes, ears, and throat are clear. NECK: Supple. No meningeal signs. MUSCULOSKELETAL: There is no deformities. Peripheral pulses 1+ symmetric. MENTAL STATUS: On vigorous stimulation, opened eyes, smiling. He has a poor eye contact. Mumbling incoherent, not able to follow simple commands. CRANIAL NERVE II: Pupils both responding to light and accommodation. The patient was unable to count fingers, but he had a poor visual contact. CRANIAL NERVE V: Normal corneal responses. CRANIAL NERVE VII: No gross asymmetry. CRANIAL NERVE VIII: Grossly normal hearing. CRANIAL NERVES IX THROUGH XII: Reduced gag response. MOTOR EXAMINATION: Flaccid right upper and right lower extremities. Able to move left arm and left leg against the gravity. Deep tendon reflexes depressed bilaterally. Plantar responses flexor on the left and extensor on the right. SENSORY EXAMINATION: Withdrawing to pin stimulation on the left side of the body. IMPRESSION: 1. Chronic seizure disorder, exacerbation. 2. Hypertension, out of control. 3. Chronic atrial fibrillation, on Coumadin. 4. Status post left middle cerebral artery distribution stroke with right hemiplegia. 5. Chronic renal failure. RECOMMENDATIONS: Upgrade Keppra up to 1500 mg b.i.d., observe for any paroxysmal events. The patient had a described partial complex seizure activities prior to admission. Further paroxysmal event in the right extremities should be documented. Meanwhile, the patient needs a good control of his blood pressure and rapid ventricular rate, to be deferred to Cardiology. We will follow with you. Thank you for allowing me to see this interesting patient in neurological consultation. Jose Blunt M.D. DR: BROOKE JOB#: [id number] CC:
[2016-04-19 04:33] LABS: BASOPHILS % (AUTO) 0.8 % (0.0-2.0); EOSINOPHILS % (AUTO) 0.8 % (0.0-3.0); LYMPHOCYTES % (AUTO) 19.9 % (20.0-45.0); MEAN CORPUSCULAR HEMOGLOBIN 28.4 PG (27.0-31.0); MEAN CORPUSCULAR HGB CONC 31.4 G/DL (32.0-36.0); MEAN CORPUSCULAR VOLUME 90 FL (80-99); MEAN PLATELET VOLUME 6.5 FL (6.5-10.1); MONOCYTES % (AUTO) 11.2 % (1.0-10.0); NEUTROPHILS % (AUTO) 67.2 % (45.0-75.0); PLATELET COUNT 185 K/UL (150-450); RED BLOOD COUNT 3.68 M/UL (4.70-6.10); RED CELL DISTRIBUTION WIDTH 15.5 % (11.6-14.8); WHITE BLOOD COUNT 9.7 K/UL (4.8-10.8)
[2016-04-19 04:49] LABS: ANION GAP 16 (5-15); CALCIUM 8.9 mg/dL (8.6-10.2); CARBON DIOXIDE 20 mEQ/L (20-30); CHLORIDE 105 mEQ/L (98-107); CREATININE 1.9 mg/dL (0.7-1.2); HEMOLYSIS 0; POTASSIUM 4.8 mEQ/L (3.4-4.9); SODIUM 141 mEQ/L (135-145)
[2016-04-19 04:56] LABS: TROPONIN I < 0.30 ng/mL (<=0.30)
--- NOTE | 2016-04-19 06:27 | History and Physical Report ---
DATE OF ADMISSION: 04/18/2016 HISTORY OF PRESENT ILLNESS: The patient is a pleasant 80-year-old -[place] male with known history of CVA, atrial fibrillation, who is recently discharged from hospital with the diagnosis of healthcare associated pneumonia. At this time, the patient had been transferred back regarding the new onset seizure disorder. Weakness, described as tremors right sided. PAST MEDICAL HISTORY: Chronic kidney disease, CVA, right hemiplegia, cardiomyopathy with ejection fraction less than 25%, atrial fibrillation, neuropathic pain. PAST SURGICAL HISTORY: Denies. OUTPATIENT MEDICATIONS: Including but not limited to, albuterol, allopurinol, digoxin, diltiazem, levothyroxine, Keppra, metoprolol, Seroquel and warfarin. ALLERGIES: MARYANA inhibitors and angiotensin receptor blockers. SOCIAL HISTORY: The patient currently lives in a senior living facility. No documented history of illicit drug abuse, smoking, or alcohol abuse. FAMILY HISTORY: Reviewed and noncontributory. REVIEW OF SYSTEMS: Review of systems negative for chest pain. Positive for shortness of breath. Positive for the right-sided weakness at baseline. Negative for abnormal bleeding. Negative for headache. PHYSICAL EXAMINATION: VITAL SIGNS: Blood pressure 150/60, temperature 100, pulse rate 116, respiratory rate 22, pulse oximetry 98% on room air. HEENT: Head and neck atraumatic and normocephalic. CHEST: Clear to auscultation. HEART: S1 and S2. Positive for irregular heart rhythm. ABDOMEN: Soft. No organomegaly. MUSCULOSKELETAL: Right-sided hemiplegia at baseline. NEUROLOGY: The patient is awake and alert x3. Positive for slurred speech and dementia at baseline. LABORATORY DATA: Lab results dated April 18 showed WBC 8.2, hemoglobin 11.6, and platelet 189,000. Sodium 137, potassium 5, BUN 32, creatinine 2, lactic acid 4.2. AST and ALT normal. INR 2.2. Digoxin 1.5. Urinalysis unremarkable. Chest x-ray dated April 18 is negative for any interval changes. CT scan is negative for any acute pathology. ASSESSMENT: 1. Seizure disorders, new onset. 2. 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 3. Atrial fibrillation, rapid ventricular rate. 4. Cardiomyopathy with ejection fraction less than 20. 5. Chronic kidney disease at baseline with a creatinine level of 2, serum potassium 5. 6. Hyperkalemia. 7. Dementia. 8. Gastrointestinal and deep vein thrombosis prophylaxis. PLAN OF CARE: I agree with telemonitor. We will send troponin levels. Nephrology Dr. Noe, Neurology Dr. Blunt, Cardiology Dr. Alexander have been consulted and notified. Also Infectious Disease Dr. Argueta was consulted too. Ondina Geiger M.D. DR: Shadia JOB#: [id number] CC:
[2016-04-19] MEDS: HydrALAZINE 25mg tab ORAL SCH ×3 (06:36→22:13)
[2016-04-19 08:03] VITALS: BP 138/78
[2016-04-19] MEDS: Metoprolol 50mg tab ORAL SCH ×2 (08:04→20:45)
[2016-04-19] MEDS: Digoxin 0.125mg tab ORAL SCH (08:05)
[2016-04-19 09:00] LABS: INR 2.4 (0.9-1.1); PROTHROMBIN TIME 25.5 SEC (9.30-11.50)
--- NOTE | 2016-04-19 10:42 | Consultation ---
Consult Note Assessment/Plan ID Dic # [id number] ASSESSMENT: 80 y/o male with: // Cough ? Asp Pna - CXR 04/16: No evidence of acute cardiopulmonary disease, unchanged. 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 Apr 19, 2016 10:42
[2016-04-19 11:38] VITALS: BP 107/66
--- NOTE | 2016-04-19 11:52 | General Progress Note ---
Assessment/Plan Status: stable Assessment/Plan 1. Seizure disorders, new onset. 2. 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 3. Atrial fibrillation, rapid ventricular rate. 4. Cardiomyopathy with ejection fraction less than 20. 5. Chronic kidney disease at baseline with a creatinine level of 2, serum potassium 5. 6. Hyperkalemia. 7. Dementia. 8. Gastrointestinal and deep vein thrombosis prophylaxis. Plan: current management Consult Pulmonry Subjective ROS Limited/Unobtainable: No HEENT: Reports: no symptoms Cardiovascular: Reports: no symptoms Respiratory: Reports: cough Allergies: Coded Allergies: MARYANA INHIBITORS (Unverified Allergy, Unknown, 01/31/14) ARB-ANGIOTENSIN RECEPTOR ANTAGONIST (Unverified Allergy, Unknown, 01/31/14) Uncoded Allergies: MARYANA (Allergy, Unknown, 04/18/16) AGIOTENSIN-RECEPTOR BLOCKERS (Allergy, Unknown, 04/18/16) Objective Last 24 Hour Vital Signs Date Time Temp Pulse Resp B/P Pulse Ox O2 Delivery O2 Flow Rate FiO2 04/19/16 11:38 97.7 79 20 107/66 98 Room Air 04/19/16 09:15 98 04/19/16 08:05 160 04/19/16 08:04 160 138/78 04/19/16 08:03 97.5 140 20 138/78 97 Room Air 04/19/16 08:00 139 04/19/16 06:36 108 136/90 04/19/16 06:36 136/90 04/19/16 06:36 136/90 04/19/16 04:00 108 04/19/16 04:00 99.2 93 21 136/90 97 Room Air 04/19/16 00:00 93 04/19/16 00:00 99.0 94 21 130/93 97 Room Air 04/18/16 21:36 164/110 04/18/16 21:35 79 164/110 04/18/16 21:35 164/110 04/18/16 20:00 99.7 79 21 164/110 97 04/18/16 18:00 99.6 122 25 170/82 98 Room Air 122 04/18/16 16:52 99.6 106 27 173/90 98 Room Air 106 04/18/16 16:17 122 196/99 04/18/16 15:33 100.0 113 27 182/104 98 Room Air 1/22/17 15:04 100.0 127 29 182/104 98 Room Air 04/18/16 14:08 147 202/111 04/18/16 13:26 135 193/112 04/18/16 12:34 100.0 138 29 146/78 98 Room Air 04/18/16 12:31 160 183/89 Intake and Output 04/18/16 04/19/16 19:00 07:00 Intake Total 615 ml 100 ml Balance 615 ml 100 ml Intake Oral 100 ml IV Total 615 ml # Voids 1 1 # Bowel Movements 1 Laboratory Tests 04/18/16 12:15: Lactic Acid Level 3.10H 04/18/16 12:49: Urine Color Pale yellow, Urine Appearance Clear, Urine pH 5, Urine Specific [place] 1.010, Urine Protein 2+H, Urine Glucose (UA) Negative, Urine Ketones Negative, Urine Occult Blood 1+H, Urine Nitrite Negative, Urine Bilirubin Negative, Urine Urobilinogen Normal, Urine Leukocyte Esterase Negative, Urine RBC 0-2H, Urine WBC 0-2, Urine Squamous Epithelial Cells Occasional, Urine Bacteria Few 04/19/16 04:05: White Blood Count 9.7, Red Blood Count 3.68L, Hemoglobin 10.4L, Hematocrit 33.2L , Mean Corpuscular Volume 90, Mean Corpuscular Hemoglobin 28.4, Mean Corpuscular Hemoglobin Concent 31.4L, Red Cell Distribution Width 15.5H, Platelet Count 185, Mean Platelet Volume 6.5, Neutrophils (%) (Auto) 67.2, Lymphocytes (%) (Auto) 19.9L, Monocytes (%) (Auto) 11.2H, Eosinophils (%) (Auto ) 0.8, Basophils (%) (Auto) 0.8, Sodium Level 141, Potassium Level 4.8, Chloride Level 105, Carbon Dioxide Level 20, Anion Gap 16H, Blood Urea Nitrogen 27H, Creatinine 1.9H, Estimat Glomerular Filtration Rate , Glucose Level 106#, Calcium Level 8.9, Troponin I < 0.30 04/19/16 08:05: Prothrombin Time 25.5H, Prothromb Time International Ratio 2.4H Height (Feet): 6 Height (Inches): 0.00 Weight (Pounds): 220 General Appearance: no apparent distress EENT: PERRL/EOMI Neck: supple Cardiovascular: normal rate Respiratory/Chest: rhonchi - bilaterally Abdomen: soft Extremities: other - Right hemiparesis Neurologic: other - AOx2 at baseline Ondina Geiger MD Apr 19, 2016 11:52
[2016-04-19 12:58] LABS: TROPONIN I < 0.30 ng/mL (<=0.30)
[2016-04-19] MEDS: Azithromycin 500 MG in D5W 275 ML IV SCH (13:32)
[2016-04-19 16:00] VITALS: BP 115/70
[2016-04-19] MEDS: Piperacillin/Tazobactam 3.375 GM in D5W 110 ML IVPB SCH (16:01)
[2016-04-19] MEDS: Warfarin Sodium 5mg ORAL SCH (17:11)
[2016-04-19 20:00] VITALS: BP 120/77
--- NOTE | 2016-04-19 20:27 | Consultation ---
DATE OF CONSULTATION: 04/19/2016 INFECTIOUS DISEASE CONSULTATION REFERRING PHYSICIAN: Ondina Geiger M.D. REASON FOR CONSULTATION: Evaluation of the patient for low-grade fever, possible aspiration pneumonia, and antibiotic management. HISTORY OF PRESENT ILLNESS: The patient is a 80-year-old male with multiple medical problems who has been admitted to this medical center recently for congestive heart failure exacerbation, cough, and pneumonia. The patient received a course of antibiotics and was discharged; however, the patient was readmitted for seizure. The patient was found to have low-grade fever. The patient has cough. Infectious disease consultation has been requested for for further evaluation of the patient's antibiotic management. The patient was poor historian. Much of information was gathered through the chart and speaking to the staff. REVIEW OF SYSTEMS: As mentioned above, the patient is a poor historian. PAST MEDICAL HISTORY: Significant for, 1. Congestive heart failure. 2. History of dementia. 3. Acute renal failure/CKD. 4. Seizure disorder. 5. Atrial fibrillation. ALLERGIES: MARYANA inhibitor and ARB antagonists. FAMILY HISTORY: Not available. MEDICATIONS: Off of antibiotics. PHYSICAL EXAMINATION: VITAL SIGNS: Temperature 97.4, blood pressure 138/78, pulse of 80, respiratory rate 18, and T-max 100 degrees. HEENT: Mouth . CHEST: Coarse breath sounds. HEART: S1 and S2. ABDOMEN: Soft. EXTREMITIES: No cyanosis. NEUROLOGIC: The patient is awake. LABORATORY DATA: White blood cells 9.7, hemoglobin 10, and platelets 185,000. UA unremarkable. BUN 37 and creatinine 1.9. Chest x-ray shows mild central interstitial prominence consistent over the left base. Head CT - no acute intracranial bleed. ASSESSMENT: The patient is a 80-year-old male with multiple medical problems who was admitted to this medical center due to seizure disorder. The patient has cough, possible aspiration pneumonia. The patient also has low-grade fever that could lead to seizure disorder and also underlying infectious process. PLAN: 1. We will start the patient on IV Zosyn. 2. Monitor CBC. 3. Monitor BMP. 4. Cultures (blood, urine, and sputum). 5. Also add Zithromax for coverage of atypicals. 6. Monitor chest x-ray. 7. Based on the patient's clinical course and labs, we will give further recommendation. Thank you, Dr. Geiger, for allowing me to participate in the care of this patient. I will follow the patient with you. Rafael Argueta M.D. DR: BUCK JOB#: [id number] CC:
[2016-04-19] MEDS: Tamsulosin 0.4mg cap ORAL SCH (20:45)
[2016-04-19 21:41] LABS: TROPONIN I < 0.30 ng/mL (<=0.30)
[2016-04-20] MEDS: Piperacillin/Tazobactam 3.375 GM in D5W 110 ML IVPB SCH ×4 (00:05→22:12)
[2016-04-20 00:22] VITALS: BP 117/71
[2016-04-20 04:11] VITALS: BP 111/72
[2016-04-20 04:39] LABS: INR 2.5 (0.9-1.1); PROTHROMBIN TIME 26.7 SEC (9.30-11.50)
[2016-04-20 05:24] LABS: TROPONIN I < 0.30 ng/mL (<=0.30)
[2016-04-20] MEDS: HydrALAZINE 25mg tab ORAL SCH ×3 (06:18→22:00)
[2016-04-20 07:47] VITALS: BP 140/70
[2016-04-20] MEDS: Metoprolol 50mg tab ORAL SCH ×3 (08:01→17:20)
[2016-04-20] MEDS: Digoxin 0.125mg tab ORAL SCH ×2 (08:02→09:00)
--- NOTE | 2016-04-20 08:14 | Infectious Diseases Prog Note ---
Assessment/Plan Assessment/Plan ASSESSMENT: 80 y/o male with: // Chronic cough ? Asp Pna ?PND ?asthma ?allergic - CXR 04/18: Mild central interstitial prominence, calcified granuloma in the left base. No interval change from 04/16/16. 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 - h/o ICMO, trop(-) x1, BNP 1796 - TTE 05/2014: EF 35-40%, grade I diastolic dysfunction, mod MR, TR, pulmonary HTN // Vascular dementia, h/o CVA // ARF on CKD3 // Seizure disorder // A-fib // h/o MRSA colonization // Previous DNR PLAN: - continue azithromycin, Zosyn d# 2 / 5-7 ( SP cefepime d# 5 ) ( 04/13 SP IV vancomycin d# 2 ) - f/u cultures ( Bl, SP Ur ) - monitor CBC, temperatures - monitor BMP - monitor CXR Subjective Allergies: Coded Allergies: MARYANA INHIBITORS (Unverified Allergy, Unknown, 01/31/14) ARB-ANGIOTENSIN RECEPTOR ANTAGONIST (Unverified Allergy, Unknown, 01/31/14) Uncoded Allergies: MARYANA (Allergy, Unknown, 04/18/16) AGIOTENSIN-RECEPTOR BLOCKERS (Allergy, Unknown, 04/18/16) Subjective fevers resolved. chronic cough Objective Vital Signs Last 24 Hour Vital Signs Date Time Temp Pulse Resp B/P Pulse Ox O2 Delivery O2 Flow Rate FiO2 04/20/16 08:02 98 04/20/16 08:01 98 140/70 04/20/16 07:47 98.1 98 20 140/70 95 Room Air 04/20/16 06:19 112 116/62 04/20/16 06:18 116/62 04/20/16 06:18 116/62 04/20/16 04:11 98.5 92 21 111/72 97 Room Air 04/20/16 04:00 95 04/20/16 00:22 98.2 74 20 117/71 97 Room Air 04/20/16 00:00 79 04/19/16 22:13 90 115/70 04/19/16 22:13 115/70 04/19/16 22:13 115/70 04/19/16 20:45 90 115/70 04/19/16 20:00 103 04/19/16 20:00 88 19 120/77 100 Room Air 04/19/16 16:00 90 04/19/16 16:00 96.8 98 18 115/70 99 Room Air 04/19/16 13:37 110 113/75 04/19/16 13:37 113/75 04/19/16 13:37 113/75 04/19/16 11:38 97.7 79 20 107/66 98 Room Air 04/19/16 09:15 98 Height (Feet): 6 Height (Inches): 0.00 Weight (Pounds): 220 General Appearance: no acute distress Respiratory/Chest: no respiratory distress Cardiovascular: normal rate, regular rhythm Abdomen: normal bowel sounds, soft, non tender, non distended Microbiology Date/Time Source Procedure Growth Status 04/18/16 11:49 Blood Blood Culture - Preliminary NO GROWTH AFTER 24 HOURS Resulted 04/18/16 11:34 Blood Blood Culture - Preliminary NO GROWTH AFTER 24 HOURS Resulted 04/18/16 12:46 Nasal Nares Right MRSA Culture - Final NO METHICILLIN RESISTANT STAPH AUREUS... Complete 04/18/16 12:46 Rectum VRE Culture - Final Enterococcus Faecium - Vre Complete Laboratory Tests Test 04/19/16 12:00 04/19/16 20:25 04/20/16 04:00 Troponin I < 0.30 ng/mL (<=0.30) < 0.30 ng/mL (<=0.30) < 0.30 ng/mL (<=0.30) Prothrombin Time 26.7 SEC (9.30-11.50) H Prothromb Time International Ratio 2.5 (0.9-1.1) H Current Medications Medications (Trade) Dose Ordered Sig/Con Route PRN Reason Start Time Stop Time Status Last Admin Dose Admin Azithromycin 500 mg/Dextrose 275 ml @ 275 mls/hr Q24HRS IV 04/19/16 13:00 04/25/16 13:59 04/19/16 13:32 Digoxin (Lanoxin) 0.125 mg DAILY ORAL 04/19/16 09:00 05/19/16 08:59 04/20/16 08:02 Diltiazem HCl (Cardizem) 60 mg EVERY 8 HOURS ORAL 04/19/16 06:00 05/19/16 05:59 04/20/16 06:19 Hydralazine HCl (Apresoline) 25 mg Q8HR ORAL 04/18/16 22:00 05/18/16 21:59 04/20/16 06:18 Isosorbide Dinitrate (Isordil) 10 mg Q8HR ORAL 04/18/16 22:00 05/18/16 21:59 04/20/16 06:18 Levetiracetam (Keppra) 1,000 mg Q12HR ORAL 04/18/16 21:00 05/18/16 20:59 04/20/16 08:01 Levothyroxine Sodium (Synthroid) 75 mcg DAILY@0630 ORAL 04/19/16 06:30 05/19/16 06:29 04/20/16 06:18 Metoprolol Tartrate (Lopressor) 50 mg Q12HR ORAL 04/18/16 21:00 05/18/16 20:59 04/20/16 08:01 Piperacillin Sod/ Tazobactam Sod/ Dextrose (Zosyn/D5W) 110 ml @ 27.5 mls/hr EVERY 8 HOURS IVPB 04/19/16 14:00 04/24/16 13:59 04/20/16 06:03 Tamsulosin HCl (Flomax) 0.4 mg BEDTIME ORAL 04/18/16 21:00 05/18/16 20:59 04/19/16 20:45 Warfarin Sodium (Coumadin per pharmacy) 1 ea DAILY MISC 04/19/16 17:00 05/19/16 16:59 04/19/16 17:00 Warfarin Sodium 5 mg 5 mg COUMADIN ORAL 04/19/16 17:00 05/19/16 16:59 04/19/16 17:11 ES YAP Apr 20, 2016 08:14
--- NOTE | 2016-04-20 09:25 | General Progress Note ---
Assessment/Plan Status: stable Assessment/Plan 1. Seizure disorders, recurrent episode. 2. 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 3. Atrial fibrillation, rapid ventricular rate. 4. Cardiomyopathy with ejection fraction less than 20. 5. Chronic kidney disease at baseline with a creatinine level of 2, serum potassium 5. 6. Hyperkalemia. 7. Dementia. 8. Gastrointestinal and deep vein thrombosis prophylaxis. Plan: Discharge pending completion of Neurology workup Subjective ROS Limited/Unobtainable: No Constitutional: Reports: no symptoms Cardiovascular: Reports: no symptoms Respiratory: Reports: no symptoms Allergies: Coded Allergies: MARYANA INHIBITORS (Unverified Allergy, Unknown, 01/31/14) ARB-ANGIOTENSIN RECEPTOR ANTAGONIST (Unverified Allergy, Unknown, 01/31/14) Uncoded Allergies: MARYANA (Allergy, Unknown, 04/18/16) AGIOTENSIN-RECEPTOR BLOCKERS (Allergy, Unknown, 04/18/16) Objective Last 24 Hour Vital Signs Date Time Temp Pulse Resp B/P Pulse Ox O2 Delivery O2 Flow Rate FiO2 04/20/16 08:02 98 04/20/16 08:01 98 140/70 04/20/16 07:47 98.1 98 20 140/70 95 Room Air 04/20/16 06:19 112 116/62 04/20/16 06:18 116/62 04/20/16 06:18 116/62 04/20/16 04:11 98.5 92 21 111/72 97 Room Air 04/20/16 04:00 95 04/20/16 00:22 98.2 74 20 117/71 97 Room Air 04/20/16 00:00 79 04/19/16 22:13 90 115/70 04/19/16 22:13 115/70 04/19/16 22:13 115/70 04/19/16 20:45 90 115/70 04/19/16 20:00 103 04/19/16 20:00 88 19 120/77 100 Room Air 04/19/16 16:00 90 04/19/16 16:00 96.8 98 18 115/70 99 Room Air 04/19/16 13:37 110 113/75 04/19/16 13:37 113/75 04/19/16 13:37 113/75 04/19/16 11:38 97.7 79 20 107/66 98 Room Air Intake and Output 04/19/16 04/20/16 19:00 07:00 Intake Total 360 ml 110.0 ml Output Total 300 ml Balance 360 ml -190.0 ml Intake Oral 360 ml IV Total 110.0 ml Output Urine Total 300 ml # Voids 1 Laboratory Tests 04/19/16 12:00: Troponin I < 0.30 04/19/16 20:25: Troponin I < 0.30 04/20/16 04:00: Troponin I < 0.30, Prothrombin Time 26.7H, Prothromb Time International Ratio 2.5H Height (Feet): 6 Height (Inches): 0.00 Weight (Pounds): 220 General Appearance: no apparent distress EENT: PERRL/EOMI Neck: supple Cardiovascular: normal rate Respiratory/Chest: lungs clear Abdomen: soft Extremities: other - Right Hemiplegia Neurologic: disoriented - Demented. AOx 2, at base line Ondina Geiger MD Apr 20, 2016 09:25
[2016-04-20 11:22] VITALS: BP 114/79
[2016-04-20] MEDS: Azithromycin 500 MG in D5W 275 ML IV SCH (12:07)
[2016-04-20 12:38] LABS: TROPONIN I < 0.30 ng/mL (<=0.30)
--- NOTE | 2016-04-20 14:13 | Neurology Progress Note ---
Interim History Interim History ROS Limited/Unobtainable: Yes Complaints: confused Events: refused food /meds po Objective Physical Exam Last Vital Signs Date Time Temp Pulse Resp B/P Pulse Ox O2 Delivery O2 Flow Rate FiO2 04/20/16 11:22 98.3 99 20 114/79 100 Room Air Laboratory Tests Test 04/19/16 20:25 04/20/16 04:00 04/20/16 12:05 Troponin I < 0.30 ng/mL (<=0.30) < 0.30 ng/mL (<=0.30) < 0.30 ng/mL (<=0.30) Prothrombin Time 26.7 SEC (9.30-11.50) H Prothromb Time International Ratio 2.5 (0.9-1.1) H General: well developed, no acute distress Head: normocophalic, atraumatic Neck: no rigidity Neurologic Exam Mental Status: awake, alert, other - very confused constantly looking for moving lights in room not folloving command Speech: no dysarthia Language: other - incoherent Cranial Nerve II: fundus normal, visual anna Cranial Nerves III, IV, : PERRLA, pupils Cranial Nerve V: normal facial sensations, temporales function normal, masseters function normal, pterygoids function normal Cranial Nerve VII: normal facial expressions Cranial Nerve VIII: no nystagmus Cranial Nerve IX: gag response Cranial Nerve X: other Cranial Nerve XI: trapezii function normal Cranial Nerve XII: tongue midline, no tongue atrophy/fasciculations Motor System: other - R hemiplegia Sensory: other Coordination: other Deep Tendon Reflexes: 0 ankle (L), 0 ankle (R), 0 bicep (L), 0 bicep (R), 0 brachioradialis (L), 0 brachioradialis (R), 0 knee (L), 0 knee (R), 0 tricep (L) , 0 tricep (R) Reflexes: mute plantar (L), mute plantar (R) Impression/Recommendations Problems: (1) partial complex sz , exacerbation (2) Atrial fibrillation with RVR (3) Arterial ischemic stroke, MCA (middle cerebral artery), left, chronic (4) refusing food/po meds (5) Dementia, vascular Status: stable Recommendations #[id number] psych eval depakote 125mg bid .5 qhs neuro stable when on keppra IV DARON SO Apr 20, 2016 14:13
[2016-04-20] MEDS ORDERED: levETIRAcetam 1,000 MG in D5W 110 ML IV ONE (15:00)
[2016-04-20 16:00] VITALS: BP_SYST 136; BP_SYST 163; BP_DIAS 73; BP_DIAS 84
--- NOTE | 2016-04-20 16:46 | Cardiology Progress Note ---
Assessment/Plan Problem List: (1) Arrhythmia Assessment & Plan: AF w. RVR (2) Cardiomyopathy (3) Seizure disorder (4) Vascular dementia with behavior disturbance (5) CVA (cerebral infarction) Status: stable, progressing, not improved Status Narrative Mr. Ybarra did not receive his cardiac medication today - incl digoxin, metoprolol and diltiazem. Per RN, pt refusing meds. Noted now w/ AF w/ v rates up to 150s, sBP to 160s. He has no c/o chest pain or dyspnea Assessment/Plan Will give digoxin iv 0.25 mg x1 today. re attempt to give po b matthew and ca channel matthew, as well as anticoagulation, as pt now does indicate he refuses po meds If continues to refuse, will give iv metoprolol as well . Cannot give iv diltiazem (as would need infusion for efficacy) on telemetry - this would require icu transfer. d/w RN Subjective ROS Limited/Unobtainable: No Subjective Pt alert, in NAD Per RN, pt refused all meds. When asked, he states that he does not want further tests. Objective Last 24 Hour Vital Signs Date Time Temp Pulse Resp B/P Pulse Ox O2 Delivery O2 Flow Rate FiO2 04/20/16 16:00 97.9 56 18 163/84 99 Room Air 04/20/16 14:00 99 114/79 04/20/16 14:00 114/79 04/20/16 14:00 114/79 04/20/16 11:22 98.3 99 20 114/79 100 Room Air 04/20/16 09:00 135 140/70 04/20/16 09:00 135 04/20/16 08:00 135 04/20/16 07:47 98.1 98 20 140/70 95 Room Air 04/20/16 06:19 112 116/62 04/20/16 06:18 116/62 04/20/16 06:18 116/62 04/20/16 04:11 98.5 92 21 111/72 97 Room Air 04/20/16 04:00 95 04/20/16 00:22 98.2 74 20 117/71 97 Room Air 04/20/16 00:00 79 04/19/16 22:13 90 115/70 04/19/16 22:13 115/70 04/19/16 22:13 115/70 1/23/17 20:45 90 115/70 04/19/16 20:00 103 04/19/16 20:00 88 19 120/77 100 Room Air General Appearance: WD/WN, no apparent distress, alert EENT: PERRL/EOMI Neck: supple, no JVD Rhythm: Afib Cardiovascular: no gallop/murmur, tachycardia, irregularly irregular Respiratory/Chest: lungs clear - clear anteriorly Abdomen: non tender, soft, no mass Extremities: non-tender Neurologic: other - R hemiparesis Intake and Output 04/19/16 04/20/16 19:00 07:00 Intake Total 360 ml 110.0 ml Output Total 300 ml Balance 360 ml -190.0 ml Intake Oral 360 ml IV Total 110.0 ml Output Urine Total 300 ml # Voids 1 Laboratory Tests Test 04/19/16 20:25 04/20/16 04:00 04/20/16 12:05 Troponin I < 0.30 ng/mL (<=0.30) < 0.30 ng/mL (<=0.30) < 0.30 ng/mL (<=0.30) Prothrombin Time 26.7 SEC (9.30-11.50) H Prothromb Time International Ratio 2.5 (0.9-1.1) H Microbiology Date/Time Source Procedure Growth Status 04/18/16 11:49 Blood Blood Culture - Preliminary NO GROWTH AFTER 24 HOURS Resulted 04/18/16 11:34 Blood Blood Culture - Preliminary NO GROWTH AFTER 24 HOURS Resulted 04/18/16 12:46 Nasal Nares Right MRSA Culture - Final NO METHICILLIN RESISTANT STAPH AUREUS... Complete 04/19/16 17:10 Urine,Clean Catch Urine Culture - Preliminary NO GROWTH Resulted 04/18/16 12:46 Rectum VRE Culture - Final Enterococcus Faecium - Vre Complete DESIREE ROMERO Apr 20, 2016 16:46
--- NOTE | 2016-04-20 17:11 | Pulmonology Progress Note ---
Assessment/Plan Problems: (1) Seizure disorder (2) Pneumonia (3) Arrhythmia (4) Atrial fibrillation with RVR (5) Dementia, vascular (6) CKD (chronic kidney disease) (7) Vascular dementia with behavior disturbance (8) CVA (cerebral infarction) (9) Cardiomyopathy Assessment/Plan IV antibiotics respiratory treatment check cutlrues watch bmc dvt prophylaxis all meds and notes reviewed Subjective Interval Events: awake, comfortable Allergies: Coded Allergies: MARYANA INHIBITORS (Unverified Allergy, Unknown, 01/31/14) ARB-ANGIOTENSIN RECEPTOR ANTAGONIST (Unverified Allergy, Unknown, 01/31/14) Objective Last 24 Hour Vital Signs Date Time Temp Pulse Resp B/P Pulse Ox O2 Delivery O2 Flow Rate FiO2 04/20/16 16:00 97.9 56 18 136/73 99 Room Air 04/20/16 14:00 99 114/79 04/20/16 14:00 114/79 04/20/16 14:00 114/79 04/20/16 11:22 98.3 99 20 114/79 100 Room Air 04/20/16 09:00 135 140/70 04/20/16 09:00 135 04/20/16 08:00 135 04/20/16 07:47 98.1 98 20 140/70 95 Room Air 04/20/16 06:19 112 116/62 04/20/16 06:18 116/62 04/20/16 06:18 116/62 04/20/16 04:11 98.5 92 21 111/72 97 Room Air 04/20/16 04:00 95 04/20/16 00:22 98.2 74 20 117/71 97 Room Air 04/20/16 00:00 79 04/19/16 22:13 90 115/70 04/19/16 22:13 115/70 04/19/16 22:13 115/70 04/19/16 20:45 90 115/70 04/19/16 20:00 103 04/19/16 20:00 88 19 120/77 100 Room Air Intake and Output 04/19/16 04/20/16 19:00 07:00 Intake Total 360 ml 110.0 ml Output Total 300 ml Balance 360 ml -190.0 ml Intake Oral 360 ml IV Total 110.0 ml Output Urine Total 300 ml # Voids 1 General Appearance: WD/WN, no acute distress HEENT: normocephalic, PERRL Respiratory/Chest: lungs clear, crackles/rales Cardiovascular: normal peripheral pulses, normal rate, regular rhythm Abdomen: normal bowel sounds, soft, non tender Extremities: no cyanosis Skin: no rash Neurologic/Psychiatric: caster operator II-XII 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 Microbiology Date/Time Source Procedure Growth Status 04/18/16 11:49 Blood Blood Culture - Preliminary NO GROWTH AFTER 24 HOURS Resulted 04/18/16 11:34 Blood Blood Culture - Preliminary NO GROWTH AFTER 24 HOURS Resulted 04/18/16 12:46 Nasal Nares Right MRSA Culture - Final NO METHICILLIN RESISTANT STAPH AUREUS... Complete 04/19/16 17:10 Urine,Clean Catch Urine Culture - Preliminary NO GROWTH Resulted 04/18/16 12:46 Rectum VRE Culture - Final Enterococcus Faecium - Vre Complete Laboratory Tests 04/19/16 20:25: Troponin I < 0.30 04/20/16 04:00: Troponin I < 0.30, Prothrombin Time 26.7H, Prothromb Time International Ratio 2.5H 04/20/16 12:05: Troponin I < 0.30 Current Medications Medications (Trade) Dose Ordered Sig/Con Route PRN Reason Start Time Stop Time Status Last Admin Dose Admin Azithromycin 500 mg/Dextrose 275 ml @ 275 mls/hr Q24HRS IV 04/19/16 13:00 04/25/16 13:59 04/20/16 12:07 Digoxin (Lanoxin) 0.125 mg DAILY ORAL 04/19/16 09:00 05/19/16 08:59 04/19/16 08:05 Digoxin (Lanoxin) 0.25 mg ONCE ONCE IVP 04/20/16 16:45 04/20/16 16:46 UNV Diltiazem HCl (Cardizem) 60 mg EVERY 8 HOURS ORAL 04/19/16 06:00 05/19/16 05:59 04/20/16 06:19 Divalproex Sodium (Depakote Sprinkles) 125 mg EVERY 12 HOURS ORAL 04/20/16 21:00 05/20/16 20:59 Hydralazine HCl (Apresoline) 25 mg Q8HR ORAL 04/18/16 22:00 05/18/16 21:59 04/20/16 06:18 Isosorbide Dinitrate (Isordil) 10 mg Q8HR ORAL 04/18/16 22:00 05/18/16 21:59 04/20/16 06:18 Levetiracetam/ Dextrose (Keppra/D5W) 120 ml @ 480 mls/hr Q12HR IV 04/20/16 21:00 05/20/16 20:59 Levothyroxine Sodium (Synthroid) 75 mcg DAILY@0630 ORAL 04/19/16 06:30 05/19/16 06:29 04/20/16 06:18 Metoprolol Tartrate (Lopressor) 50 mg Q12HR ORAL 04/18/16 21:00 05/18/16 20:59 04/19/16 20:45 Olanzapine (ZyPREXA Zydis) 5 mg BEDTIME ONCE ORAL 04/20/16 21:00 04/20/16 21:01 Piperacillin Sod/ Tazobactam Sod 3.375 gm/Dextrose 110 ml @ 27.5 mls/hr EVERY 8 HOURS IVPB 04/19/16 14:00 04/24/16 13:59 04/20/16 14:15 Tamsulosin HCl (Flomax) 0.4 mg BEDTIME ORAL 04/18/16 21:00 05/18/16 20:59 04/19/16 20:45 Warfarin Sodium (Coumadin per pharmacy) 1 ea DAILY MISC 04/19/16 17:00 05/19/16 16:59 04/19/16 17:00 Warfarin Sodium 5 mg 5 mg COUMADIN ORAL 04/19/16 17:00 05/19/16 16:59 04/19/16 17:11 CAROLINA RENAE Apr 20, 2016 17:11
[2016-04-20] MEDS: Warfarin Sodium 5mg ORAL SCH (17:17)
[2016-04-20] MEDS ORDERED: Digoxin 0.5mg/2ml Inj IVP ONE (17:30)
[2016-04-20 20:00] VITALS: BP 138/94
[2016-04-20] MEDS: Tamsulosin 0.4mg cap ORAL SCH (21:00)
[2016-04-20] MEDS: Depakote 125mg Sprinkles ORAL SCH (21:00)
[2016-04-20] MEDS ORDERED: ZyPREXA Zydis 5mg tab ORAL ONE (21:00)
[2016-04-20] MEDS: levETIRAcetam 1,000 MG in D5W 110 ML IV SCH (22:12)
[2016-04-21 00:17] VITALS: BP 146/93
[2016-04-21 04:13] VITALS: BP 143/69
[2016-04-21 04:14] LABS: INR 2.7 (0.9-1.1); PROTHROMBIN TIME 28.8 SEC (9.30-11.50)
[2016-04-21 04:25] LABS: TROPONIN I < 0.30 ng/mL (<=0.30)
[2016-04-21] MEDS: Piperacillin/Tazobactam 3.375 GM in D5W 110 ML IVPB SCH ×3 (05:00→23:05)
[2016-04-21] MEDS: HydrALAZINE 25mg tab ORAL SCH ×3 (06:30→22:35)
[2016-04-21 08:00] VITALS: BP 134/86
[2016-04-21] MEDS: Metoprolol 50mg tab ORAL SCH ×2 (08:39→21:49)
[2016-04-21] MEDS: Digoxin 0.125mg tab ORAL SCH (08:39)
[2016-04-21] MEDS: Depakote 125mg Sprinkles ORAL SCH ×2 (08:39→21:48)
[2016-04-21] MEDS ORDERED: Metoprolol 5mg/5ml Inj IVP ONE (08:45)
[2016-04-21] MEDS: levETIRAcetam 1,000 MG in D5W 110 ML IV SCH (09:08)
--- NOTE | 2016-04-21 09:32 | General Progress Note ---
Assessment/Plan Status: stable Assessment/Plan 1. Seizure disorders, recurrent episode. 2. 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 3. Atrial fibrillation, rapid ventricular rate. 4. Cardiomyopathy with ejection fraction less than 20. 5. Chronic kidney disease at baseline with a creatinine level of 2, serum potassium 5. 6. Hyperkalemia. 7. Dementia. 8. Gastrointestinal and deep vein thrombosis prophylaxis. Plan: Un Optimized cardiac status secondary to Non Compliance with meds Psych- Dr Velasquez is consulted Subjective ROS Limited/Unobtainable: No Constitutional: Reports: no symptoms HEENT: Reports: no symptoms Cardiovascular: Reports: no symptoms Allergies: Coded Allergies: MARYANA INHIBITORS (Unverified Allergy, Unknown, 01/31/14) ARB-ANGIOTENSIN RECEPTOR ANTAGONIST (Unverified Allergy, Unknown, 01/31/14) Objective Last 24 Hour Vital Signs Date Time Temp Pulse Resp B/P Pulse Ox O2 Delivery O2 Flow Rate FiO2 04/21/16 09:08 140 143/69 04/21/16 08:39 140 143/69 04/21/16 08:39 140 04/21/16 08:00 97.5 127 17 134/86 99 Room Air 78 04/21/16 06:30 93 143/69 04/21/16 06:30 143/69 04/21/16 06:30 143/69 04/21/16 04:13 98.3 93 20 143/69 97 Room Air 04/21/16 04:00 126 04/21/16 00:17 98.5 98 21 146/93 96 Room Air 04/20/16 22:00 138/94 04/20/16 22:00 138/94 04/20/16 20:00 136 04/20/16 20:00 97.3 76 18 138/94 99 Room Air 04/20/16 17:55 67 04/20/16 17:20 67 136/73 04/20/16 17:19 67 136/73 04/20/16 16:00 132 04/20/16 16:00 97.9 56 18 136/73 99 Room Air 04/20/16 14:00 99 114/79 04/20/16 14:00 114/79 04/20/16 14:00 114/79 04/20/16 11:22 98.3 99 20 114/79 100 Room Air Intake and Output 04/20/16 04/21/16 19:00 07:00 Intake Total 865.0 ml 55.0 ml Output Total 400 ml Balance 865.0 ml -345.0 ml IV Total 865.0 ml 55.0 ml Output Urine Total 400 ml # Voids 1 # Bowel Movements 1 1 Laboratory Tests 04/20/16 12:05: Troponin I < 0.30 04/21/16 03:45: Troponin I < 0.30, Prothrombin Time 28.8H, Prothromb Time International Ratio 2.7H Height (Feet): 6 Height (Inches): 0.00 Weight (Pounds): 220 General Appearance: no apparent distress EENT: PERRL/EOMI Neck: supple Cardiovascular: tachycardia Respiratory/Chest: rhonchi - bilaterally Abdomen: soft Extremities: other - Right Jered-Plegia Neurologic: disoriented - at baseline AOx2 Ondina Geiger MD Apr 21, 2016 09:31
--- NOTE | 2016-04-21 11:30 | Cardiology Progress Note ---
Assessment/Plan Problem List: (1) Arrhythmia Assessment & Plan: AF w. RVR (2) Cardiomyopathy (3) Seizure disorder (4) Vascular dementia with behavior disturbance (5) CVA (cerebral infarction) Status: stable, unchanged Status Narrative Mr. Ybarra continues to refuse cardiac medication. He is in AF w/ rapid ventricular rates, without symptoms Assessment/Plan Will give metoprolol and digoxin iv today. Continue telemetry monitoring. Subjective ROS Limited/Unobtainable: No Subjective Pt alert, somewhat confused. States he is going home. Refusing po meds Objective Last 24 Hour Vital Signs Date Time Temp Pulse Resp B/P Pulse Ox O2 Delivery O2 Flow Rate FiO2 04/21/16 09:08 140 143/69 04/21/16 08:39 140 143/69 04/21/16 08:39 140 04/21/16 08:00 97.5 127 17 134/86 99 Room Air 78 04/21/16 08:00 122 04/21/16 06:30 93 143/69 04/21/16 06:30 143/69 04/21/16 06:30 143/69 04/21/16 04:13 98.3 93 20 143/69 97 Room Air 04/21/16 04:00 126 04/21/16 00:17 98.5 98 21 146/93 96 Room Air 04/20/16 22:00 138/94 04/20/16 22:00 138/94 04/20/16 20:00 136 04/20/16 20:00 97.3 76 18 138/94 99 Room Air 04/20/16 17:55 67 04/20/16 17:20 67 136/73 04/20/16 17:19 67 136/73 04/20/16 16:00 132 04/20/16 16:00 97.9 56 18 136/73 99 Room Air 04/20/16 14:00 99 114/79 04/20/16 14:00 114/79 04/20/16 14:00 114/79 General Appearance: WD/WN, no apparent distress, alert EENT: PERRL/EOMI Neck: supple, no JVD Rhythm: Afib Cardiovascular: no gallop/murmur, tachycardia, irregularly irregular Respiratory/Chest: lungs clear Abdomen: normal bowel sounds, non tender Extremities: no swelling Neurologic: other - R hemiparesis - unchanged Intake and Output 04/20/16 04/21/16 19:00 07:00 Intake Total 865.0 ml 55.0 ml Output Total 400 ml Balance 865.0 ml -345.0 ml IV Total 865.0 ml 55.0 ml Output Urine Total 400 ml # Voids 1 # Bowel Movements 1 1 Laboratory Tests Test 04/20/16 12:05 04/21/16 03:45 Troponin I < 0.30 ng/mL (<=0.30) < 0.30 ng/mL (<=0.30) Prothrombin Time 28.8 SEC (9.30-11.50) H Prothromb Time International Ratio 2.7 (0.9-1.1) H Microbiology Date/Time Source Procedure Growth Status 04/18/16 11:49 Blood Blood Culture - Preliminary NO GROWTH AFTER 48 HOURS Resulted 04/18/16 11:34 Blood Blood Culture - Preliminary NO GROWTH AFTER 48 HOURS Resulted 04/18/16 12:46 Nasal Nares Right MRSA Culture - Final NO METHICILLIN RESISTANT STAPH AUREUS... Complete 04/19/16 17:10 Urine,Clean Catch Urine Culture - Preliminary NO GROWTH AFTER 24 HOURS Resulted 04/18/16 12:46 Rectum VRE Culture - Final Enterococcus Faecium - Vre Complete DESIREE ROMERO Apr 21, 2016 11:30
--- NOTE | 2016-04-21 11:49 | Neurology Progress Note ---
Interim History Interim History ROS Limited/Unobtainable: No Complaints: confused Events: refused food /meds po noted less responcive Interim History c CT brai pend Objective Physical Exam Last Vital Signs Date Time Temp Pulse Resp B/P Pulse Ox O2 Delivery O2 Flow Rate FiO2 04/21/16 09:08 140 143/69 04/21/16 08:00 97.5 17 99 Room Air Laboratory Tests Test 04/20/16 12:05 04/21/16 03:45 Troponin I < 0.30 ng/mL (<=0.30) < 0.30 ng/mL (<=0.30) Prothrombin Time 28.8 SEC (9.30-11.50) H Prothromb Time International Ratio 2.7 (0.9-1.1) H General: well developed, no acute distress Head: normocophalic, atraumatic Neck: no rigidity Neurologic Exam Mental Status: awake, alert, other - very confused incoherent Speech: no dysarthia, other - slurred Language: other - incoherent Cranial Nerve II: fundus normal, visual anna Cranial Nerves III, IV, : PERRLA, pupils Cranial Nerve V: normal facial sensations, temporales function normal, masseters function normal, pterygoids function normal Cranial Nerve VII: normal facial expressions Cranial Nerve VIII: no nystagmus Cranial Nerve IX: gag response Cranial Nerve X: other Cranial Nerve XI: trapezii function normal Cranial Nerve XII: tongue midline, no tongue atrophy/fasciculations Motor System: other - R hemiplegia Sensory: other Coordination: other Deep Tendon Reflexes: 0 ankle (L), 0 ankle (R), 0 bicep (L), 0 bicep (R), 0 brachioradialis (L), 0 brachioradialis (R), 0 knee (L), 0 knee (R), 0 tricep (L) , 0 tricep (R) Reflexes: mute plantar (L), mute plantar (R) Impression/Recommendations Problems: (1) partial complex sz , exacerbation (2) Atrial fibrillation with RVR (3) Arterial ischemic stroke, MCA (middle cerebral artery), left, chronic (4) refusing food/po meds (5) Dementia, vascular Status: stable, unchanged Recommendations EEG MRI brain dictated#[id number] psych eval depakote 125mg bid [id number] qhs neuro stable when on keppra IV DARON SO Apr 21, 2016 11:49
[2016-04-21 12:00] VITALS: BP 129/73
[2016-04-21] MEDS: Metoprolol 5mg/5ml Inj IVP SCH ×2 (12:32→18:11)
[2016-04-21 12:58] LABS: TROPONIN I < 0.30 ng/mL (<=0.30)
[2016-04-21] MEDS: Azithromycin 500 MG in D5W 275 ML IV SCH (13:14)
--- NOTE | 2016-04-21 13:39 | Diagnostic Imaging Report ---
Indications: Altered mental status, seizure Technique: Spiral acquisitions obtained through the brain. Angled axial and coronal 5 x 5 mm slices were reconstructed. Total dose length product 1411 mGycm. CTDI vol(s) 70 mGy Comparison: 04/18/2016 Findings: Again demonstrated is left occipital and parasagittal posterior parietal encephalomalacia. This results in ex vacuo dilatation of the atrium of left lateral ventricle. There is age-related enlargement of the ventricles and extra-axial CSF spaces. There is extensive periventricular the white matter chronic ischemic change. A cortical calcification is seen in the right occipital lobe. A subependymal calcification is seen adjacent to horn the right lateral ventricle. No acute hemorrhage or edema. No mass effect or midline shift. Otherwise normal friedman-white differentiation. Intact calvarium. There is ethmoid and maxillary sinus disease. Impression: Chronic and age-related changes, including old left occipital infarct Negative for acute intracranial bleed or mass effect. Sinus disease The CT scanner at [facility] is accredited by the [employer] and the scans are performed using protocols designed to limit radiation exposure to as low as reasonably achievable to attain images of sufficient resolution adequate for diagnostic evaluation.
--- NOTE | 2016-04-21 14:30 | Diagnostic Imaging Report ---
Indication: Altered mental status Technique: Due to inability of patient to hold still, only sagittal T1-weighted images, and axial diffusion weighted images be obtained. ADC maps generated Comparison: Reference made to CT scan of earlier the same day Findings: . Within the area of encephalomalacia of the right occipital lobe, there is a small focus of restricted diffusion. No other diffusion abnormality demonstrated. The exam is otherwise nondiagnostic due to the available sequences. The available sagittal T1 sequence demonstrates parenchymal volume loss as well as previously reported left occipital encephalomalacia. Impression: Extremely limited exam, as described Unusual finding of a small focus of diffusion restriction within an area of previous infarct. Suspect that this represents an acute infarct involving a small focus of viable brain tissue within the old infarct Age-related volume loss, as described Findings discussed by phone with Dr. Blunt at the time of interpretation
--- NOTE | 2016-04-21 14:39 | Pulmonology Progress Note ---
Assessment/Plan Problems: (1) Seizure disorder (2) Pneumonia (3) Arrhythmia (4) Atrial fibrillation with RVR (5) Dementia, vascular (6) CKD (chronic kidney disease) (7) Vascular dementia with behavior disturbance (8) CVA (cerebral infarction) (9) Cardiomyopathy Assessment/Plan improving had MRI neuro recommending psych evaluation Dr Velasquez calledd IV antibiotics respiratory treatment watch bmc dvt prophylaxis all meds and notes reviewed Subjective ROS Limited/Unobtainable: No Interval Events: awake, no new complains Allergies: Coded Allergies: MARYANA INHIBITORS (Unverified Allergy, Unknown, 01/31/14) ARB-ANGIOTENSIN RECEPTOR ANTAGONIST (Unverified Allergy, Unknown, 01/31/14) Objective Last 24 Hour Vital Signs Date Time Temp Pulse Resp B/P Pulse Ox O2 Delivery O2 Flow Rate FiO2 04/21/16 13:14 129/73 04/21/16 13:14 110/68 04/21/16 13:13 110 131/71 04/21/16 12:32 110 131/71 04/21/16 12:00 96.9 116 18 129/73 98 Room Air 119 04/21/16 09:08 140 143/69 04/21/16 08:39 140 143/69 04/21/16 08:39 140 04/21/16 08:00 97.5 127 17 134/86 99 Room Air 78 04/21/16 08:00 122 04/21/16 06:30 93 143/69 04/21/16 06:30 143/69 04/21/16 06:30 143/69 04/21/16 04:13 98.3 93 20 143/69 97 Room Air 04/21/16 04:00 126 04/21/16 00:17 98.5 98 21 146/93 96 Room Air 04/20/16 22:00 138/94 04/20/16 22:00 138/94 04/20/16 20:00 136 04/20/16 20:00 97.3 76 18 138/94 99 Room Air 04/20/16 17:55 67 04/20/16 17:20 67 136/73 04/20/16 17:19 67 136/73 04/20/16 16:00 132 04/20/16 16:00 97.9 56 18 136/73 99 Room Air Intake and Output 04/20/16 04/21/16 19:00 07:00 Intake Total 865.0 ml 55.0 ml Output Total 400 ml Balance 865.0 ml -345.0 ml IV Total 865.0 ml 55.0 ml Output Urine Total 400 ml # Voids 1 # Bowel Movements 1 1 General Appearance: WD/WN HEENT: normocephalic, atraumatic Respiratory/Chest: chest wall non-tender, lungs clear Cardiovascular: normal peripheral pulses, normal rate Abdomen: normal bowel sounds, soft, non tender Genitourinary: normal external genitalia Extremities: no cyanosis Skin: no rash 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 Lymphatic: no neck adenopathy Microbiology Date/Time Source Procedure Growth Status 04/19/16 17:10 Urine,Clean Catch Urine Culture - Preliminary NO GROWTH AFTER 24 HOURS Resulted Laboratory Tests 04/21/16 03:45: Prothrombin Time 28.8H, Prothromb Time International Ratio 2.7H, Troponin I < 0.30 04/21/16 12:00: Troponin I < 0.30 Current Medications Medications (Trade) Dose Ordered Sig/Con Route PRN Reason Start Time Stop Time Status Last Admin Dose Admin Azithromycin 500 mg/Dextrose 275 ml @ 275 mls/hr Q24HRS IV 04/19/16 13:00 04/25/16 13:59 04/21/16 13:14 Digoxin (Lanoxin) 0.125 mg DAILY ORAL 04/19/16 09:00 05/19/16 08:59 04/19/16 08:05 Diltiazem HCl (Cardizem) 60 mg EVERY 8 HOURS ORAL 04/19/16 06:00 05/19/16 05:59 04/21/16 13:13 Divalproex Sodium (Depakote Sprinkles) 125 mg EVERY 12 HOURS ORAL 04/20/16 21:00 05/20/16 20:59 Hydralazine HCl (Apresoline) 25 mg Q8HR ORAL 04/18/16 22:00 05/18/16 21:59 04/21/16 13:14 Isosorbide Dinitrate (Isordil) 10 mg Q8HR ORAL 04/18/16 22:00 05/18/16 21:59 04/21/16 13:14 Levetiracetam/ Dextrose (Keppra/D5W) 125 ml @ 480 mls/hr Q12HR IV 04/21/16 21:00 05/21/16 20:59 Levothyroxine Sodium (Synthroid) 75 mcg DAILY@0630 ORAL 04/19/16 06:30 05/19/16 06:29 04/20/16 06:18 Metoprolol Tartrate (Lopressor) 50 mg Q12HR ORAL 04/21/16 11:59 05/18/16 20:59 Metoprolol Tartrate 5 mg 5 mg Q6HR IVP 04/21/16 12:00 05/21/16 11:59 04/21/16 12:32 Piperacillin Sod/ Tazobactam Sod/ Dextrose (Zosyn/D5W) 110 ml @ 27.5 mls/hr EVERY 8 HOURS IVPB 04/19/16 14:00 04/24/16 13:59 04/21/16 05:00 Tamsulosin HCl (Flomax) 0.4 mg BEDTIME ORAL 04/18/16 21:00 05/18/16 20:59 04/19/16 20:45 Warfarin Sodium (Coumadin per pharmacy) 1 ea DAILY MISC 04/19/16 17:00 05/19/16 16:59 04/19/16 17:00 Warfarin Sodium 5 mg 5 mg COUMADIN ORAL 04/19/16 17:00 05/19/16 16:59 04/20/16 17:17 CAROLINA RENAE Apr 21, 2016 14:39
[2016-04-21 16:00] VITALS: BP 143/73
[2016-04-21] MEDS: Warfarin Sodium 5mg ORAL SCH (18:11)
--- NOTE | 2016-04-21 19:11 | Infectious Diseases Prog Note ---
Assessment/Plan Assessment/Plan ASSESSMENT: 80 y/o male with: // Chronic cough ? Asp Pna ?PND ?asthma ?allergic - CXR 04/18: Mild central interstitial prominence, calcified granuloma in the left base. No interval change from 04/16/16. 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 - h/o ICMO, trop(-) x1, BNP 1796 - TTE 05/2014: EF 35-40%, grade I diastolic dysfunction, mod MR, TR, pulmonary HTN // Vascular dementia, h/o CVA // ARF on CKD3 // Seizure disorder // A-fib // h/o MRSA colonization // Previous DNR PLAN: - continue azithromycin, Zosyn d# 3 / 5-7 ( SP cefepime d# 5 ) ( 04/13 SP IV vancomycin d# 2 ) - f/u cultures ( Bl, SP Ur ) - monitor CBC, temperatures - monitor BMP - monitor CXR Subjective Constitutional: Denies: anorexia, chills, drenching sweats, fatigue, fever, no symptoms, other Allergies: Coded Allergies: MARYANA INHIBITORS (Unverified Allergy, Unknown, 01/31/14) ARB-ANGIOTENSIN RECEPTOR ANTAGONIST (Unverified Allergy, Unknown, 01/31/14) Objective Vital Signs Last 24 Hour Vital Signs Date Time Temp Pulse Resp B/P Pulse Ox O2 Delivery O2 Flow Rate FiO2 04/21/16 18:11 71 143/73 04/21/16 16:00 97.7 71 18 143/73 99 Room Air 04/21/16 14:59 105 04/21/16 13:14 129/73 04/21/16 13:14 110/68 04/21/16 13:13 110 131/71 04/21/16 12:32 110 131/71 04/21/16 12:00 96.9 116 18 129/73 98 Room Air 119 04/21/16 12:00 108 04/21/16 09:08 140 143/69 04/21/16 08:39 140 143/69 04/21/16 08:39 140 04/21/16 08:00 97.5 127 17 134/86 99 Room Air 78 04/21/16 08:00 122 04/21/16 06:30 93 143/69 04/21/16 06:30 143/69 04/21/16 06:30 143/69 04/21/16 04:13 98.3 93 20 143/69 97 Room Air 04/21/16 04:00 126 04/21/16 00:17 98.5 98 21 146/93 96 Room Air 04/20/16 22:00 138/94 04/20/16 22:00 138/94 04/20/16 20:00 136 04/20/16 20:00 97.3 76 18 138/94 99 Room Air Height (Feet): 6 Height (Inches): 0.00 Weight (Pounds): 220 HEENT: anicteric Respiratory/Chest: normal breath sounds Cardiovascular: normal peripheral pulses Abdomen: soft, non tender Microbiology Date/Time Source Procedure Growth Status 04/19/16 17:10 Urine,Clean Catch Urine Culture - Preliminary NO GROWTH AFTER 24 HOURS Resulted Laboratory Tests Test 04/21/16 03:45 04/21/16 12:00 Prothrombin Time 28.8 SEC (9.30-11.50) H Prothromb Time International Ratio 2.7 (0.9-1.1) H Troponin I < 0.30 ng/mL (<=0.30) < 0.30 ng/mL (<=0.30) Current Medications Medications (Trade) Dose Ordered Sig/Con Route PRN Reason Start Time Stop Time Status Last Admin Dose Admin Azithromycin 500 mg/Dextrose 275 ml @ 275 mls/hr Q24HRS IV 04/19/16 13:00 04/25/16 13:59 04/21/16 13:14 Digoxin (Lanoxin) 0.125 mg DAILY ORAL 04/19/16 09:00 05/19/16 08:59 04/19/16 08:05 Diltiazem HCl (Cardizem) 60 mg EVERY 8 HOURS ORAL 04/19/16 06:00 05/19/16 05:59 04/21/16 13:13 Divalproex Sodium (Depakote Sprinkles) 125 mg EVERY 12 HOURS ORAL 04/20/16 21:00 05/20/16 20:59 Hydralazine HCl (Apresoline) 25 mg Q8HR ORAL 04/18/16 22:00 05/18/16 21:59 04/21/16 13:14 Isosorbide Dinitrate (Isordil) 10 mg Q8HR ORAL 04/18/16 22:00 05/18/16 21:59 04/21/16 13:14 Levetiracetam/ Dextrose (Keppra/D5W) 125 ml @ 480 mls/hr Q12HR IV 04/21/16 21:00 05/21/16 20:59 Levothyroxine Sodium (Synthroid) 75 mcg DAILY@0630 ORAL 04/19/16 06:30 05/19/16 06:29 04/20/16 06:18 Metoprolol Tartrate (Lopressor) 50 mg Q12HR ORAL 04/21/16 11:59 05/18/16 20:59 Metoprolol Tartrate 5 mg 5 mg Q6HR IVP 04/21/16 12:00 05/21/16 11:59 04/21/16 18:11 Piperacillin Sod/ Tazobactam Sod/ Dextrose (Zosyn/D5W) 110 ml @ 27.5 mls/hr EVERY 8 HOURS IVPB 04/19/16 14:00 04/24/16 13:59 04/21/16 14:59 Tamsulosin HCl (Flomax) 0.4 mg BEDTIME ORAL 04/18/16 21:00 05/18/16 20:59 04/19/16 20:45 Warfarin Sodium (Coumadin per pharmacy) 1 ea DAILY MISC 04/19/16 17:00 05/19/16 16:59 04/19/16 17:00 Warfarin Sodium 5 mg 5 mg COUMADIN ORAL 04/19/16 17:00 05/19/16 16:59 04/21/16 18:11 LICHA SCHERER M.D. Apr 21, 2016 19:11
[2016-04-21 20:00] VITALS: BP 120/76
[2016-04-21] MEDS: LEVETIRACETAM IV SCH (21:49)
[2016-04-21] MEDS: Tamsulosin 0.4mg cap ORAL SCH (21:49)
[2016-04-21] MEDS: D5W IV SCH (21:49)
[2016-04-21 21:50] LABS: TROPONIN I < 0.30 ng/mL (<=0.30)
[2016-04-22 00:13] VITALS: BP 133/78
[2016-04-22] MEDS: Metoprolol 5mg/5ml Inj IVP SCH ×4 (00:53→16:58)
[2016-04-22 04:10] VITALS: BP 136/69
[2016-04-22] MEDS: Piperacillin/Tazobactam 3.375 GM in D5W 110 ML IVPB SCH ×3 (05:10→22:27)
[2016-04-22] MEDS: HydrALAZINE 25mg tab ORAL SCH ×3 (06:43→21:32)
[2016-04-22 08:00] VITALS: BP 154/77
--- NOTE | 2016-04-22 08:12 | General Progress Note ---
Assessment/Plan Status: stable Assessment/Plan 1. Seizure disorders, recurrent episode. 2. 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 3. Abnormal MRI finding-suggestive of small sub acute CVA 3. Atrial fibrillation, rapid ventricular rate. 4. Cardiomyopathy with ejection fraction less than 20. 5. Chronic kidney disease at baseline with a creatinine level of 2, serum potassium 5. 6. Hyperkalemia. 7. Dementia. 8. Gastrointestinal and deep vein thrombosis prophylaxis. Plan: current workup per Neurology Subjective ROS Limited/Unobtainable: Yes Constitutional: Reports: no symptoms - poor historian. demeted Allergies: Coded Allergies: MARYANA INHIBITORS (Unverified Allergy, Unknown, 01/31/14) ARB-ANGIOTENSIN RECEPTOR ANTAGONIST (Unverified Allergy, Unknown, 01/31/14) Objective Last 24 Hour Vital Signs Date Time Temp Pulse Resp B/P Pulse Ox O2 Delivery O2 Flow Rate FiO2 04/22/16 05:10 79 136/69 04/22/16 04:10 97.6 79 19 136/69 99 Room Air 04/22/16 03:36 78 04/22/16 00:53 79 133/78 04/22/16 00:13 97.9 79 20 133/78 96 Room Air 04/21/16 21:49 112 120/76 04/21/16 20:00 97.0 58 16 120/76 99 Room Air 04/21/16 19:28 107 04/21/16 18:11 71 143/73 04/21/16 16:00 97.7 71 18 143/73 99 Room Air 04/21/16 14:59 105 04/21/16 13:14 129/73 04/21/16 13:14 110/68 04/21/16 13:13 110 131/71 04/21/16 12:32 110 131/71 04/21/16 12:00 96.9 116 18 129/73 98 Room Air 119 04/21/16 12:00 108 04/21/16 09:08 140 143/69 04/21/16 08:39 140 143/69 04/21/16 08:39 140 Intake and Output 04/21/16 04/22/16 19:00 07:00 Intake Total 1532.5 ml 235.0 ml Output Total 650 ml 600 ml Balance 882.5 ml -365.0 ml Intake Oral 640 ml IV Total 892.5 ml 235.0 ml Output Urine Total 650 ml 600 ml # Voids 3 Laboratory Tests 04/21/16 12:00: Troponin I < 0.30 04/21/16 20:00: Troponin I < 0.30 Height (Feet): 6 Height (Inches): 0.00 Weight (Pounds): 220 General Appearance: no apparent distress EENT: PERRL/EOMI Neck: supple Cardiovascular: normal rate Respiratory/Chest: lungs clear Abdomen: soft Extremities: other - Right Hemiplegia Neurologic: disoriented, other - slurred at baseline Ondina Geiger MD Apr 22, 2016 08:12
[2016-04-22] MEDS: Digoxin 0.125mg tab ORAL SCH ×2 (08:32→08:41)
[2016-04-22] MEDS: Depakote 125mg Sprinkles ORAL SCH ×3 (08:32→21:31)
[2016-04-22] MEDS: Metoprolol 50mg tab ORAL SCH ×3 (08:33→21:32)
[2016-04-22 09:01] LABS: INR 2.9 (0.9-1.1); PROTHROMBIN TIME 30.8 SEC (9.30-11.50)
[2016-04-22] MEDS: LEVETIRACETAM IV SCH ×2 (09:54→21:31)
[2016-04-22] MEDS: D5W IV SCH ×2 (09:54→21:31)
[2016-04-22 11:55] VITALS: BP 136/72
--- NOTE | 2016-04-22 12:14 | Pulmonology Progress Note ---
Assessment/Plan Problems: (1) Atrial fibrillation with RVR (2) Seizure disorder (3) Pneumonia (4) Arrhythmia (5) Dementia, vascular (6) CKD (chronic kidney disease) (7) Vascular dementia with behavior disturbance (8) CVA (cerebral infarction) (9) Cardiomyopathy Assessment/Plan brain MRI: Impression: Extremely limited exam, as described Unusual finding of a small focus of diffusion restriction within an area of previous infarct. Suspect that this represents an acute infarct involving a small focus of viable brain tissue within the old infarct. Refusing oral meds Hear rate around 100 on zoxyn and zithro social service consult Subjective ROS Limited/Unobtainable: No Interval Events: comfortable, NAD Allergies: Coded Allergies: MARYANA INHIBITORS (Unverified Allergy, Unknown, 01/31/14) ARB-ANGIOTENSIN RECEPTOR ANTAGONIST (Unverified Allergy, Unknown, 01/31/14) Objective Last 24 Hour Vital Signs Date Time Temp Pulse Resp B/P Pulse Ox O2 Delivery O2 Flow Rate FiO2 04/22/16 12:00 80 136/72 04/22/16 11:55 97.5 80 19 136/72 95 Room Air 04/22/16 08:41 81 154/77 04/22/16 08:41 81 04/22/16 08:00 85 04/22/16 08:00 96.7 81 18 154/77 94 Room Air 04/22/16 05:10 79 136/69 04/22/16 04:10 97.6 79 19 136/69 99 Room Air 04/22/16 03:36 78 04/22/16 00:53 79 133/78 04/22/16 00:13 97.9 79 20 133/78 96 Room Air 04/21/16 21:49 112 120/76 04/21/16 20:00 97.0 58 16 120/76 99 Room Air 04/21/16 19:28 107 04/21/16 18:11 71 143/73 04/21/16 16:00 97.7 71 18 143/73 99 Room Air 04/21/16 14:59 105 04/21/16 13:14 129/73 04/21/16 13:14 110/68 04/21/16 13:13 110 131/71 04/21/16 12:32 110 131/71 Intake and Output 04/21/16 04/22/16 19:00 07:00 Intake Total 1532.5 ml 290.0 ml Output Total 650 ml 600 ml Balance 882.5 ml -310.0 ml Intake Oral 640 ml IV Total 892.5 ml 290.0 ml Output Urine Total 650 ml 600 ml # Voids 3 General Appearance: WD/WN Respiratory/Chest: chest wall non-tender, lungs clear Cardiovascular: normal peripheral pulses, normal rate Abdomen: normal bowel sounds, soft, non tender Genitourinary: normal external genitalia Extremities: no cyanosis Skin: no rash 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/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 Lymphatic: no neck adenopathy, no groin adenopathy Microbiology Date/Time Source Procedure Growth Status 04/19/16 17:10 Urine,Clean Catch Urine Culture - Final NO GROWTH AFTER 48 HOURS Complete Laboratory Tests 04/21/16 20:00: Troponin I < 0.30 04/22/16 08:00: Prothrombin Time 30.8H, Prothromb Time International Ratio 2.9H Current Medications Medications (Trade) Dose Ordered Sig/Con Route PRN Reason Start Time Stop Time Status Last Admin Dose Admin Azithromycin 500 mg/Dextrose 275 ml @ 275 mls/hr Q24HRS IV 04/19/16 13:00 04/25/16 13:59 04/21/16 13:14 Digoxin (Lanoxin) 0.125 mg DAILY ORAL 04/19/16 09:00 05/19/16 08:59 04/19/16 08:05 Diltiazem HCl (Cardizem) 60 mg EVERY 8 HOURS ORAL 04/19/16 06:00 05/19/16 05:59 04/21/16 13:13 Divalproex Sodium (Depakote Sprinkles) 125 mg EVERY 12 HOURS ORAL 04/20/16 21:00 05/20/16 20:59 04/21/16 21:48 Hydralazine HCl (Apresoline) 25 mg Q8HR ORAL 04/18/16 22:00 05/18/16 21:59 04/21/16 13:14 Isosorbide Dinitrate (Isordil) 10 mg Q8HR ORAL 04/18/16 22:00 05/18/16 21:59 04/21/16 13:14 Levetiracetam/ Dextrose (Keppra/D5W) 125 ml @ 480 mls/hr Q12HR IV 04/21/16 21:00 05/21/16 20:59 04/22/16 09:54 Levothyroxine Sodium (Synthroid) 75 mcg DAILY@0630 ORAL 04/19/16 06:30 05/19/16 06:29 04/20/16 06:18 Metoprolol Tartrate (Lopressor) 50 mg Q12HR ORAL 04/21/16 11:59 05/18/16 20:59 04/21/16 21:49 Metoprolol Tartrate 5 mg 5 mg Q6HR IVP 04/21/16 12:00 05/21/16 11:59 04/22/16 12:00 Piperacillin Sod/ Tazobactam Sod/ Dextrose (Zosyn/D5W) 110 ml @ 27.5 mls/hr EVERY 8 HOURS IVPB 04/19/16 14:00 04/24/16 13:59 04/22/16 05:10 Tamsulosin HCl (Flomax) 0.4 mg BEDTIME ORAL 04/18/16 21:00 05/18/16 20:59 04/21/16 21:49 Warfarin Sodium (Coumadin per pharmacy) 1 ea DAILY PRN MISC . 04/22/16 08:30 05/19/16 16:59 Warfarin Sodium 5 mg 5 mg COUMADIN ORAL 04/19/16 17:00 05/19/16 16:59 04/21/16 18:11 CAROLINA RENAE Apr 22, 2016 12:14
[2016-04-22] MEDS: Azithromycin 500 MG in D5W 275 ML IV SCH (12:53)
--- NOTE | 2016-04-22 13:03 | Infectious Diseases Prog Note ---
Assessment/Plan Assessment/Plan ASSESSMENT: 80 y/o male with: // Chronic cough ? Asp Pna ?PND ?asthma ?allergic Scx : not sent - CXR 04/18: Mild central interstitial prominence, calcified granuloma in the left base. No interval change from 04/16/16. 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 - h/o ICMO, trop(-) x1, BNP 1796 - TTE 05/2014: EF 35-40%, grade I diastolic dysfunction, mod MR, TR, pulmonary HTN // Vascular dementia, h/o CVA MRI : acute infarct involving a small focus of viable brain tissue within the old infarct // ARF on CKD3 // Seizure disorder // A-fib // h/o MRSA colonization // Previous DNR PLAN: - continue azithromycin, Zosyn d# 4 / 5-7 ( SP cefepime d# 5 ) ( 04/13 SP IV vancomycin d# 2 ) - f/u cultures ( Bl ) - monitor CBC, temperatures - monitor BMP - monitor CXR Subjective Constitutional: Denies: anorexia, chills, drenching sweats, fatigue, fever, no symptoms, other Allergies: Coded Allergies: MARYANA INHIBITORS (Unverified Allergy, Unknown, 01/31/14) ARB-ANGIOTENSIN RECEPTOR ANTAGONIST (Unverified Allergy, Unknown, 01/31/14) Objective Vital Signs Last 24 Hour Vital Signs Date Time Temp Pulse Resp B/P Pulse Ox O2 Delivery O2 Flow Rate FiO2 04/22/16 12:00 80 136/72 04/22/16 11:55 97.5 80 19 136/72 95 Room Air 04/22/16 08:41 81 154/77 04/22/16 08:41 81 04/22/16 08:00 85 04/22/16 08:00 96.7 81 18 154/77 94 Room Air 04/22/16 05:10 79 136/69 04/22/16 04:10 97.6 79 19 136/69 99 Room Air 04/22/16 03:36 78 04/22/16 00:53 79 133/78 04/22/16 00:13 97.9 79 20 133/78 96 Room Air 04/21/16 21:49 112 120/76 04/21/16 20:00 97.0 58 16 120/76 99 Room Air 04/21/16 19:28 107 04/21/16 18:11 71 143/73 04/21/16 16:00 97.7 71 18 143/73 99 Room Air 04/21/16 14:59 105 04/21/16 13:14 129/73 04/21/16 13:14 110/68 04/21/16 13:13 110 131/71 Height (Feet): 6 Height (Inches): 0.00 Weight (Pounds): 220 HEENT: anicteric Respiratory/Chest: lungs clear Cardiovascular: normal rate, regular rhythm Abdomen: soft, non tender, no organomegaly Microbiology Date/Time Source Procedure Growth Status 04/19/16 17:10 Urine,Clean Catch Urine Culture - Final NO GROWTH AFTER 48 HOURS Complete Laboratory Tests Test 04/21/16 20:00 04/22/16 08:00 Troponin I < 0.30 ng/mL (<=0.30) Prothrombin Time 30.8 SEC (9.30-11.50) H Prothromb Time International Ratio 2.9 (0.9-1.1) H Current Medications Medications (Trade) Dose Ordered Sig/Con Route PRN Reason Start Time Stop Time Status Last Admin Dose Admin Azithromycin 500 mg/Dextrose 275 ml @ 275 mls/hr Q24HRS IV 04/19/16 13:00 04/25/16 13:59 04/22/16 12:53 Digoxin (Lanoxin) 0.125 mg DAILY ORAL 04/19/16 09:00 05/19/16 08:59 04/19/16 08:05 Diltiazem HCl 60 mg 60 mg EVERY 8 HOURS ORAL 04/19/16 06:00 05/19/16 05:59 04/21/16 13:13 Divalproex Sodium (Depakote Sprinkles) 125 mg EVERY 12 HOURS ORAL 04/20/16 21:00 05/20/16 20:59 04/21/16 21:48 Hydralazine HCl (Apresoline) 25 mg Q8HR ORAL 04/18/16 22:00 05/18/16 21:59 04/21/16 13:14 Isosorbide Dinitrate (Isordil) 10 mg Q8HR ORAL 04/18/16 22:00 05/18/16 21:59 04/21/16 13:14 Levetiracetam/ Dextrose (Keppra/D5W) 125 ml @ 480 mls/hr Q12HR IV 04/21/16 21:00 05/21/16 20:59 04/22/16 09:54 Levothyroxine Sodium (Synthroid) 75 mcg DAILY@0630 ORAL 04/19/16 06:30 05/19/16 06:29 04/20/16 06:18 Metoprolol Tartrate (Lopressor) 50 mg Q12HR ORAL 04/21/16 11:59 05/18/16 20:59 04/21/16 21:49 Metoprolol Tartrate 5 mg 5 mg Q6HR IVP 04/21/16 12:00 05/21/16 11:59 04/22/16 12:00 Piperacillin Sod/ Tazobactam Sod/ Dextrose (Zosyn/D5W) 110 ml @ 27.5 mls/hr EVERY 8 HOURS IVPB 04/19/16 14:00 04/24/16 13:59 04/22/16 05:10 Tamsulosin HCl (Flomax) 0.4 mg BEDTIME ORAL 04/18/16 21:00 05/18/16 20:59 04/21/16 21:49 Warfarin Sodium (Coumadin per pharmacy) 1 ea DAILY PRN MISC . 04/22/16 08:30 05/19/16 16:59 Warfarin Sodium (Coumadin) 4 mg COUMADIN ONCE ORAL 04/22/16 17:00 04/22/16 17:01 LICHA SCHERER M.D. Apr 22, 2016 13:03
--- NOTE | 2016-04-22 14:20 | Neurology Progress Note ---
Interim History Interim History ROS Limited/Unobtainable: No Complaints: confused Events: refused food /meds po noted less responcive Objective Physical Exam Last Vital Signs Date Time Temp Pulse Resp B/P Pulse Ox O2 Delivery O2 Flow Rate FiO2 04/22/16 13:26 87 131/77 04/22/16 11:55 97.5 19 95 Room Air Laboratory Tests Test 04/21/16 20:00 04/22/16 08:00 Troponin I < 0.30 ng/mL (<=0.30) Prothrombin Time 30.8 SEC (9.30-11.50) H Prothromb Time International Ratio 2.9 (0.9-1.1) H General: well developed, no acute distress Head: normocophalic, atraumatic Neck: no rigidity Neurologic Exam Mental Status: awake, alert, other - very confused incoherent Speech: no dysarthia, other - slurred Language: other - incoherent Cranial Nerve II: fundus normal, visual anna Cranial Nerves III, IV, : PERRLA, pupils Cranial Nerve V: normal facial sensations, temporales function normal, masseters function normal, pterygoids function normal Cranial Nerve VII: normal facial expressions Cranial Nerve VIII: no nystagmus Cranial Nerve IX: gag response Cranial Nerve X: other Cranial Nerve XI: trapezii function normal Cranial Nerve XII: tongue midline, no tongue atrophy/fasciculations Motor System: other - R hemiplegia Sensory: other Coordination: other Deep Tendon Reflexes: 0 ankle (L), 0 ankle (R), 0 bicep (L), 0 bicep (R), 0 brachioradialis (L), 0 brachioradialis (R), 0 knee (L), 0 knee (R), 0 tricep (L) , 0 tricep (R) Reflexes: mute plantar (L), mute plantar (R) Impression/Recommendations Problems: (1) L MCA subacute stroke (2) partial complex sz , exacerbation (3) Atrial fibrillation with RVR (4) Arterial ischemic stroke, MCA (middle cerebral artery), left, chronic (5) refusing food/po meds (6) Dementia, vascular Status: stable Recommendations EEG MRI brain noted dictated#[id number] depakote 125mg bid [id number] qhs neuro stable on DARON Guardado IV Apr 22, 2016 14:20
[2016-04-22 16:10] VITALS: BP 124/65
[2016-04-22] MEDS ORDERED: Tubing IV Secondary IV ONE (16:41)
[2016-04-22] MEDS ORDERED: Warfarin Sodium 4mg ORAL ONE (17:00)
[2016-04-22] MEDS ORDERED: NS 275ml ONE (17:00)
[2016-04-22 20:00] VITALS: BP 139/71
[2016-04-22] MEDS: Tamsulosin 0.4mg cap ORAL SCH (21:31)
[2016-04-23] VITALS (7 sets, daily range): BP systolic 105–128; BP diastolic 60–97
[2016-04-23] MEDS: Metoprolol 5mg/5ml Inj IVP SCH ×2 (00:50→06:23)
--- NOTE | 2016-04-23 03:47 | Consultation ---
DATE OF CONSULTATION: CONSULTING PHYSICIAN: Rufus Velasquez M.D. HISTORY OF PRESENT ILLNESS: This is a 80-year-old male with a history of multiple medical problems, atrial fibrillation, CVA, who is being admitted to the hospital due to seizure disorder. Psychiatry was consulted. The patient also has a history of cognitive impairment, also has been refusing food and medications in the past. During evaluation, the patient presents with impairment in concentration, memory, and attention. No anxiety or agitation. Poor insight into his mental condition. His speech is slurred and he was disoriented during evaluation. PAST PSYCHIATRIC HISTORY: Dementia, has been treated with anxiolytics in the past. PAST MEDICAL HISTORY: Significant for CVA, seizure disorder, atrial fibrillation, cardiomyopathy, chronic , hyperkalemia, and gastrointestinal and deep vein thrombosis. ALLERGIES: Include MARYANA inhibitors and angiotensin receptor antagonist. MENTAL STATUS EXAMINATION: The patient is confused, disoriented, not able to be engaged during evaluation. He has poor insight and judgment into his mental condition. He has cognitive impairment. ASSESSMENT: AXIS I Dementia, rule out delirium. AXIS II Deferred. AXIS III Cerebrovascular accident. AXIS IV Low. AXIS V Global assessment of functioning is 20. PLAN: The patient will be continued with current medication. No new medication at this time. Continue to follow and readjust the medications. Rufus Velasquez M.D. DR: JOSEPH JOB#: [id number] CC:
[2016-04-23] MEDS: Piperacillin/Tazobactam 3.375 GM in D5W 110 ML IVPB SCH ×3 (05:50→23:58)
[2016-04-23] MEDS: HydrALAZINE 25mg tab ORAL SCH ×3 (06:22→22:06)
[2016-04-23 08:04] LABS: INR 3.1 (0.9-1.1); PROTHROMBIN TIME 32.5 SEC (9.30-11.50)
--- NOTE | 2016-04-23 08:26 | Cardiac Electrophysiology PN ---
Assessment/Plan Problem List: (1) Arrhythmia Assessment & Plan: AF w. RVR (2) Cardiomyopathy (3) Seizure disorder (4) Vascular dementia with behavior disturbance (5) CVA (cerebral infarction) Status: stable, progressing Status Narrative Mr. Ybarra is now taking po meds. Ventricular rates remain somewhat elevated in AF. His INR is above therapeutic range at 3.1 Assessment/Plan Restart po diltiazem, metoprolol and digoxin. Monitor digoxin levels. Adjust warfarin - decrease dose as inr > therapeutic range Subjective ROS Limited/Unobtainable: No Subjective Events noted. Mr. Ybarra has no c/o. Asking for dc home Objective Last 24 Hour Vital Signs Date Time Temp Pulse Resp B/P Pulse Ox O2 Delivery O2 Flow Rate FiO2 04/23/16 06:23 103 125/68 04/23/16 06:23 103 125/68 04/23/16 06:22 125/68 04/23/16 06:22 125/68 04/23/16 04:00 97.5 103 20 128/60 98 Room Air 04/23/16 04:00 103 04/23/16 00:50 98 120/72 04/23/16 00:00 97.0 70 16 117/69 98 Room Air 04/23/16 00:00 99 04/22/16 21:32 98 139/71 04/22/16 21:32 98 139/71 04/22/16 21:32 139/71 04/22/16 21:32 139/71 04/22/16 20:00 106 04/22/16 20:00 97.7 98 18 139/71 96 04/22/16 16:58 87 128/79 04/22/16 16:10 97.5 100 19 124/65 96 Room Air 04/22/16 16:00 96 04/22/16 13:26 87 131/77 04/22/16 13:26 131/77 04/22/16 13:26 131/77 04/22/16 12:00 80 136/72 04/22/16 12:00 113 04/22/16 11:55 97.5 80 19 136/72 95 Room Air 04/22/16 08:41 81 154/77 04/22/16 08:41 81 General Appearance: WD/WN, no apparent distress, alert Rhythm: Afib Cardiovascular: tachycardia, irregularly irregular Respiratory/Chest: lungs clear - clear anteriorly Abdomen: non tender, soft Extremities: no swelling Intake and Output 04/22/16 04/23/16 19:00 07:00 Intake Total 1330.0 ml 917.5 ml Output Total 380 ml 450 ml Balance 950.0 ml 467.5 ml Intake Oral 520 ml 300 ml IV Total 810.0 ml 617.5 ml Output Urine Total 380 ml 450 ml # Voids 3 # Bowel Movements 1 1 Laboratory Tests Test 04/23/16 06:00 Prothrombin Time 32.5 SEC (9.30-11.50) H Prothromb Time International Ratio 3.1 (0.9-1.1) H DESIREE ROMERO Apr 23, 2016 08:26
[2016-04-23] MEDS: Depakote 125mg Sprinkles ORAL SCH ×2 (08:29→22:05)
[2016-04-23] MEDS: Metoprolol 50mg tab ORAL SCH ×2 (08:30→22:06)
[2016-04-23] MEDS: Digoxin 0.125mg tab ORAL SCH (08:30)
[2016-04-23] MEDS: Diltiazem CD 240mg cap ORAL SCH (08:37)
--- NOTE | 2016-04-23 08:50 | General Progress Note ---
Assessment/Plan Status: stable Assessment/Plan 1. Seizure disorders, recurrent episode. 2. 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 3. Abnormal MRI finding-suggestive of small sub acute CVA 3. Atrial fibrillation, rapid ventricular rate. 4. Cardiomyopathy with ejection fraction less than 20. 5. Chronic kidney disease at baseline with a creatinine level of 2, serum potassium 5. 6. Hyperkalemia. 7. Dementia. 8. Gastrointestinal and deep vein thrombosis prophylaxis. Plan: current workup per Neurology optimization of chronotropic cardiac medication Subjective Constitutional: Reports: malaise HEENT: Reports: no symptoms Cardiovascular: Reports: no symptoms Respiratory: Reports: no symptoms Allergies: Coded Allergies: MARYANA INHIBITORS (Unverified Allergy, Unknown, 01/31/14) ARB-ANGIOTENSIN RECEPTOR ANTAGONIST (Unverified Allergy, Unknown, 01/31/14) Objective Last 24 Hour Vital Signs Date Time Temp Pulse Resp B/P Pulse Ox O2 Delivery O2 Flow Rate FiO2 04/23/16 08:37 100 113/71 04/23/16 08:30 100 113/71 04/23/16 08:30 100 04/23/16 06:23 103 125/68 04/23/16 06:23 103 125/68 04/23/16 06:22 125/68 04/23/16 06:22 125/68 04/23/16 04:00 97.5 103 20 128/60 98 Room Air 04/23/16 04:00 103 04/23/16 00:50 98 120/72 04/23/16 00:00 97.0 70 16 117/69 98 Room Air 04/23/16 00:00 99 04/22/16 21:32 98 139/71 04/22/16 21:32 98 139/71 04/22/16 21:32 139/71 04/22/16 21:32 139/71 04/22/16 20:00 106 04/22/16 20:00 97.7 98 18 139/71 96 04/22/16 16:58 87 128/79 04/22/16 16:10 97.5 100 19 124/65 96 Room Air 04/22/16 16:00 96 04/22/16 13:26 87 131/77 04/22/16 13:26 131/77 04/22/16 13:26 131/77 04/22/16 12:00 80 136/72 04/22/16 12:00 113 04/22/16 11:55 97.5 80 19 136/72 95 Room Air Intake and Output 04/22/16 04/23/16 19:00 07:00 Intake Total 1330.0 ml 917.5 ml Output Total 380 ml 450 ml Balance 950.0 ml 467.5 ml Intake Oral 520 ml 300 ml IV Total 810.0 ml 617.5 ml Output Urine Total 380 ml 450 ml # Voids 3 # Bowel Movements 1 1 Laboratory Tests 04/23/16 06:00: Prothrombin Time 32.5H, Prothromb Time International Ratio 3.1H Height (Feet): 6 Height (Inches): 0.00 Weight (Pounds): 220 General Appearance: no apparent distress EENT: PERRL/EOMI Neck: supple Cardiovascular: tachycardia Respiratory/Chest: lungs clear Abdomen: soft Extremities: non-tender Neurologic: disoriented, other - slurred speech, dementia both at baseline Ondina Geiger MD Apr 23, 2016 08:50
--- NOTE | 2016-04-23 10:17 | Infectious Diseases Prog Note ---
Assessment/Plan Assessment/Plan ASSESSMENT: 80 y/o male with: // Chronic cough ? Asp Pna ?PND ?asthma ?allergic Scx : not sent - CXR 04/18: Mild central interstitial prominence, calcified granuloma in the left base. No interval change from 04/16/16. 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 - h/o ICMO, trop(-) x1, BNP 1796 - TTE 05/2014: EF 35-40%, grade I diastolic dysfunction, mod MR, TR, pulmonary HTN // Vascular dementia, h/o CVA MRI : acute infarct involving a small focus of viable brain tissue within the old infarct // ARF on CKD3 // Seizure disorder // A-fib // h/o MRSA colonization // Previous DNR PLAN: - continue azithromycin, Zosyn d# 5 / 5-7, upon DC will stop AB Rx ( SP cefepime d# 5 ) ( 04/13 SP IV vancomycin d# 2 ) - f/u cultures ( Bl ) - monitor CBC, temperatures - monitor BMP - monitor CXR Subjective Constitutional: Denies: anorexia, chills, drenching sweats, fatigue, fever, no symptoms, other Allergies: Coded Allergies: MARYANA INHIBITORS (Unverified Allergy, Unknown, 01/31/14) ARB-ANGIOTENSIN RECEPTOR ANTAGONIST (Unverified Allergy, Unknown, 01/31/14) Objective Vital Signs Last 24 Hour Vital Signs Date Time Temp Pulse Resp B/P Pulse Ox O2 Delivery O2 Flow Rate FiO2 04/23/16 08:37 100 113/71 04/23/16 08:30 100 113/71 04/23/16 08:30 100 04/23/16 08:00 113 04/23/16 08:00 96.8 100 17 113/71 96 Room Air 04/23/16 06:23 103 125/68 04/23/16 06:23 103 125/68 04/23/16 06:22 125/68 04/23/16 06:22 125/68 04/23/16 04:00 97.5 103 20 128/60 98 Room Air 04/23/16 04:00 103 04/23/16 00:50 98 120/72 04/23/16 00:00 97.0 70 16 117/69 98 Room Air 04/23/16 00:00 99 04/22/16 21:32 98 139/71 04/22/16 21:32 98 139/71 04/22/16 21:32 139/71 04/22/16 21:32 139/71 04/22/16 20:00 106 04/22/16 20:00 97.7 98 18 139/71 96 04/22/16 16:58 87 128/79 04/22/16 16:10 97.5 100 19 124/65 96 Room Air 04/22/16 16:00 96 04/22/16 13:26 87 131/77 04/22/16 13:26 131/77 04/22/16 13:26 131/77 04/22/16 12:00 80 136/72 04/22/16 12:00 113 04/22/16 11:55 97.5 80 19 136/72 95 Room Air Height (Feet): 6 Height (Inches): 0.00 Weight (Pounds): 220 HEENT: atraumatic Respiratory/Chest: lungs clear Cardiovascular: normal rate Abdomen: no organomegaly Laboratory Tests Test 04/23/16 06:00 Prothrombin Time 32.5 SEC (9.30-11.50) H Prothromb Time International Ratio 3.1 (0.9-1.1) H Current Medications Medications (Trade) Dose Ordered Sig/Con Route PRN Reason Start Time Stop Time Status Last Admin Dose Admin Azithromycin 500 mg/Dextrose 275 ml @ 275 mls/hr Q24HRS IV 04/19/16 13:00 04/25/16 13:59 04/22/16 12:53 Digoxin (Lanoxin) 0.125 mg DAILY ORAL 04/19/16 09:00 05/19/16 08:59 04/23/16 08:30 Diltiazem HCl (Cardizem CD) 240 mg DAILY ORAL 04/23/16 09:00 05/23/16 08:59 04/23/16 08:37 Divalproex Sodium 125 mg 125 mg EVERY 12 HOURS ORAL 04/20/16 21:00 05/20/16 20:59 04/23/16 08:29 Hydralazine HCl (Apresoline) 25 mg Q8HR ORAL 04/18/16 22:00 05/18/16 21:59 04/23/16 06:22 Isosorbide Dinitrate (Isordil) 10 mg Q8HR ORAL 04/18/16 22:00 05/18/16 21:59 04/23/16 06:22 Levetiracetam/ Dextrose (Keppra/D5W) 125 ml @ 480 mls/hr Q12HR IV 04/21/16 21:00 05/21/16 20:59 04/22/16 21:31 Levothyroxine Sodium 75 mcg 75 mcg DAILY@0630 ORAL 04/19/16 06:30 05/19/16 06:29 04/23/16 06:22 Metoprolol Tartrate (Lopressor) 50 mg Q12HR ORAL 04/21/16 11:59 05/18/16 20:59 04/23/16 08:30 Piperacillin Sod/ Tazobactam Sod/ Dextrose (Zosyn/D5W) 110 ml @ 27.5 mls/hr EVERY 8 HOURS IVPB 04/19/16 14:00 04/24/16 13:59 04/23/16 05:50 Tamsulosin HCl (Flomax) 0.4 mg BEDTIME ORAL 04/18/16 21:00 05/18/16 20:59 04/22/16 21:31 Warfarin Sodium (Coumadin per pharmacy) 1 ea DAILY PRN MISC . 04/22/16 08:30 05/19/16 16:59 LICHA SCHERER M.D. Apr 23, 2016 10:17
[2016-04-23] MEDS: D5W IV SCH ×2 (10:21→22:04)
[2016-04-23] MEDS: LEVETIRACETAM IV SCH ×2 (10:21→22:04)
--- NOTE | 2016-04-23 11:30 | Pulmonology Progress Note ---
Assessment/Plan Problems: (1) Atrial fibrillation with RVR (2) Seizure disorder (3) Pneumonia (4) Arrhythmia (5) Dementia, vascular (6) CKD (chronic kidney disease) (7) Vascular dementia with behavior disturbance (8) CVA (cerebral infarction) (9) Cardiomyopathy Assessment/Plan on PO cardizem INR contorlled brain MRI: Impression: Extremely limited exam, as described Unusual finding of a small focus of diffusion restriction within an area of previous infarct. Suspect that this represents an acute infarct involving a small focus of viable brain tissue within the old infarct. [facility] Subjective ROS Limited/Unobtainable: No Constitutional: Reports: no symptoms HEENT: Repors: no symptoms Respiratory: Reports: no symptoms Gastrointestinal/Abdominal: Reports: no symptoms Genitourinary: Reports: no symptoms Allergies: Coded Allergies: MARYANA INHIBITORS (Unverified Allergy, Unknown, 01/31/14) ARB-ANGIOTENSIN RECEPTOR ANTAGONIST (Unverified Allergy, Unknown, 01/31/14) Objective Last 24 Hour Vital Signs Date Time Temp Pulse Resp B/P Pulse Ox O2 Delivery O2 Flow Rate FiO2 04/23/16 08:37 100 113/71 04/23/16 08:30 100 113/71 04/23/16 08:30 100 04/23/16 08:00 113 04/23/16 08:00 96.8 100 17 113/71 96 Room Air 04/23/16 06:23 103 125/68 04/23/16 06:23 103 125/68 04/23/16 06:22 125/68 04/23/16 06:22 125/68 04/23/16 04:00 97.5 103 20 128/60 98 Room Air 04/23/16 04:00 103 04/23/16 00:50 98 120/72 04/23/16 00:00 97.0 70 16 117/69 98 Room Air 04/23/16 00:00 99 04/22/16 21:32 98 139/71 04/22/16 21:32 98 139/71 04/22/16 21:32 139/71 04/22/16 21:32 139/71 04/22/16 20:00 106 04/22/16 20:00 97.7 98 18 139/71 96 04/22/16 16:58 87 128/79 04/22/16 16:10 97.5 100 19 124/65 96 Room Air 04/22/16 16:00 96 04/22/16 13:26 87 131/77 04/22/16 13:26 131/77 04/22/16 13:26 131/77 04/22/16 12:00 80 136/72 04/22/16 12:00 113 04/22/16 11:55 97.5 80 19 136/72 95 Room Air Intake and Output 04/22/16 04/23/16 19:00 07:00 Intake Total 1330.0 ml 917.5 ml Output Total 380 ml 450 ml Balance 950.0 ml 467.5 ml Intake Oral 520 ml 300 ml IV Total 810.0 ml 617.5 ml Output Urine Total 380 ml 450 ml # Voids 3 # Bowel Movements 1 1 General Appearance: WD/WN HEENT: normocephalic, atraumatic Respiratory/Chest: chest wall non-tender, lungs clear Cardiovascular: normal peripheral pulses, normal rate Abdomen: normal bowel sounds, soft, non tender Genitourinary: normal external genitalia Extremities: no clubbing Neurologic/Psychiatric: buffer machine II-XII 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 Laboratory Tests 04/23/16 06:00: Prothrombin Time 32.5H, Prothromb Time International Ratio 3.1H Current Medications Medications (Trade) Dose Ordered Sig/Con Route PRN Reason Start Time Stop Time Status Last Admin Dose Admin Azithromycin 500 mg/Dextrose 275 ml @ 275 mls/hr Q24HRS IV 04/19/16 13:00 04/25/16 13:59 04/22/16 12:53 Digoxin (Lanoxin) 0.125 mg DAILY ORAL 04/19/16 09:00 05/19/16 08:59 04/23/16 08:30 Diltiazem HCl (Cardizem CD) 240 mg DAILY ORAL 04/23/16 09:00 05/23/16 08:59 04/23/16 08:37 Divalproex Sodium 125 mg 125 mg EVERY 12 HOURS ORAL 04/20/16 21:00 05/20/16 20:59 04/23/16 08:29 Hydralazine HCl (Apresoline) 25 mg Q8HR ORAL 04/18/16 22:00 05/18/16 21:59 04/23/16 06:22 Isosorbide Dinitrate (Isordil) 10 mg Q8HR ORAL 04/18/16 22:00 05/18/16 21:59 04/23/16 06:22 Levetiracetam/ Dextrose (Keppra/D5W) 125 ml @ 480 mls/hr Q12HR IV 04/21/16 21:00 05/21/16 20:59 04/23/16 10:21 Levothyroxine Sodium 75 mcg 75 mcg DAILY@0630 ORAL 04/19/16 06:30 05/19/16 06:29 04/23/16 06:22 Metoprolol Tartrate (Lopressor) 50 mg Q12HR ORAL 04/21/16 11:59 05/18/16 20:59 04/23/16 08:30 Piperacillin Sod/ Tazobactam Sod/ Dextrose (Zosyn/D5W) 110 ml @ 27.5 mls/hr EVERY 8 HOURS IVPB 04/19/16 14:00 04/24/16 13:59 04/23/16 05:50 Tamsulosin HCl (Flomax) 0.4 mg BEDTIME ORAL 04/18/16 21:00 05/18/16 20:59 04/22/16 21:31 Warfarin Sodium (Coumadin per pharmacy) 1 ea DAILY PRN MISC . 04/22/16 08:30 05/19/16 16:59 Warfarin Sodium (Coumadin) 2 mg COUMADIN ONCE ORAL 04/23/16 17:00 04/23/16 17:01 CAROLINA RENAE Apr 23, 2016 11:30
[2016-04-23] MEDS: Azithromycin 500 MG in D5W 275 ML IV SCH (12:00)
[2016-04-23] MEDS ORDERED: Warfarin Sodium 2mg ORAL ONE (17:00)
[2016-04-23] MEDS ORDERED: Tubing IV Secondary IV ONE (18:20)
[2016-04-23] MEDS: Tamsulosin 0.4mg cap ORAL SCH (22:05)
[2016-04-24 00:32] VITALS: BP 117/78
[2016-04-24 04:14] VITALS: BP 120/95
[2016-04-24] MEDS: Piperacillin/Tazobactam 3.375 GM in D5W 110 ML IVPB SCH ×3 (06:08→22:58)
[2016-04-24] MEDS: HydrALAZINE 25mg tab ORAL SCH ×3 (06:15→21:58)
[2016-04-24 07:32] LABS: INR 3.3 (0.9-1.1); PROTHROMBIN TIME 34.8 SEC (9.30-11.50)
[2016-04-24 08:02] VITALS: BP 103/60
[2016-04-24] MEDS: levETIRAcetam 1,500 MG in D5W 95 ML IV SCH ×2 (08:13→21:54)
[2016-04-24] MEDS: Depakote 125mg Sprinkles ORAL SCH ×2 (08:14→21:55)
[2016-04-24] MEDS: Diltiazem CD 240mg cap ORAL SCH (08:14)
[2016-04-24] MEDS: Digoxin 0.125mg tab ORAL SCH (08:14)
[2016-04-24] MEDS: Metoprolol 50mg tab ORAL SCH ×3 (08:24→21:58)
--- NOTE | 2016-04-24 09:19 | General Progress Note ---
Assessment/Plan Status: stable Assessment/Plan 1. Seizure disorders, recurrent episode. 2. 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 3. Abnormal MRI finding-suggestive of small sub acute CVA 3. Atrial fibrillation, rapid ventricular rate. 4. Cardiomyopathy with ejection fraction less than 20. 5. Chronic kidney disease at baseline with a creatinine level of 2, serum potassium 5. 6. Hyperkalemia. 7. Dementia. 8. Gastrointestinal and deep vein thrombosis prophylaxis. Plan: current workup per Neurology optimization of chronotropic cardiac medication supra therapeutic INR Subjective ROS Limited/Unobtainable: Yes Allergies: Coded Allergies: MARYANA INHIBITORS (Unverified Allergy, Unknown, 01/31/14) ARB-ANGIOTENSIN RECEPTOR ANTAGONIST (Unverified Allergy, Unknown, 01/31/14) Objective Last 24 Hour Vital Signs Date Time Temp Pulse Resp B/P Pulse Ox O2 Delivery O2 Flow Rate FiO2 04/24/16 08:24 126 103/60 04/24/16 08:14 126 103/60 04/24/16 08:14 126 04/24/16 08:02 97.0 121 20 103/60 96 Room Air 04/24/16 06:15 115/65 04/24/16 06:15 115/65 04/24/16 04:14 98.5 68 19 120/95 94 Room Air 04/24/16 04:00 105 04/24/16 00:32 97.5 65 20 117/78 99 Room Air 04/24/16 00:00 99 04/23/16 22:06 77 137/83 04/23/16 22:06 137/83 04/23/16 22:05 137/83 04/23/16 20:00 96.4 69 18 121/74 100 Room Air 04/23/16 20:00 98 04/23/16 16:00 77 04/23/16 16:00 97.5 67 18 108/69 100 Room Air 04/23/16 13:48 118/71 04/23/16 13:48 118/71 04/23/16 13:45 87 118/71 04/23/16 12:00 97.9 80 16 105/97 97 Room Air 04/23/16 12:00 62 Intake and Output 04/23/16 04/24/16 19:00 07:00 Intake Total 1205.0 ml 235.0 ml Output Total 560 ml 400 ml Balance 645.0 ml -165.0 ml Intake Oral 340 ml IV Total 865.0 ml 235.0 ml Output Urine Total 560 ml 400 ml # Voids 2 Laboratory Tests 04/24/16 05:50: Prothrombin Time 34.8H, Prothromb Time International Ratio 3.3H Height (Feet): 6 Height (Inches): 0.00 Weight (Pounds): 220 General Appearance: WD/WN EENT: PERRL/EOMI Neck: supple Cardiovascular: normal rate Respiratory/Chest: lungs clear Abdomen: soft Extremities: non-tender Neurologic: disoriented, other - right hemiplegia, Ondina Geiger MD Apr 24, 2016 09:19
[2016-04-24 12:04] VITALS: BP 105/63
--- NOTE | 2016-04-24 12:06 | Pulmonology Progress Note ---
Assessment/Plan Problems: (1) Atrial fibrillation with RVR (2) Seizure disorder (3) Pneumonia (4) Arrhythmia (5) Dementia, vascular (6) CKD (chronic kidney disease) (7) Vascular dementia with behavior disturbance (8) CVA (cerebral infarction) (9) Cardiomyopathy Assessment/Plan still coughing HR was 150 at times getting oral meds d/w at bed side extensively on Dig, cardizem and metoprolol. Subjective ROS Limited/Unobtainable: No Interval Events: comfortable Constitutional: Reports: no symptoms HEENT: Repors: no symptoms Respiratory: Reports: no symptoms Cardiovascular: Reports: no symptoms Allergies: Coded Allergies: MARYANA INHIBITORS (Unverified Allergy, Unknown, 01/31/14) ARB-ANGIOTENSIN RECEPTOR ANTAGONIST (Unverified Allergy, Unknown, 01/31/14) Objective Last 24 Hour Vital Signs Date Time Temp Pulse Resp B/P Pulse Ox O2 Delivery O2 Flow Rate FiO2 04/24/16 08:24 126 103/60 04/24/16 08:14 126 103/60 04/24/16 08:14 126 04/24/16 08:02 97.0 121 20 103/60 96 Room Air 04/24/16 06:15 115/65 04/24/16 06:15 115/65 04/24/16 04:14 98.5 68 19 120/95 94 Room Air 04/24/16 04:00 105 04/24/16 00:32 97.5 65 20 117/78 99 Room Air 04/24/16 00:00 99 04/23/16 22:06 77 137/83 04/23/16 22:06 137/83 04/23/16 22:05 137/83 04/23/16 20:00 96.4 69 18 121/74 100 Room Air 04/23/16 20:00 98 04/23/16 16:00 77 04/23/16 16:00 97.5 67 18 108/69 100 Room Air 04/23/16 13:48 118/71 04/23/16 13:48 118/71 04/23/16 13:45 87 118/71 Intake and Output 04/23/16 04/24/16 19:00 07:00 Intake Total 1205.0 ml 235.0 ml Output Total 560 ml 400 ml Balance 645.0 ml -165.0 ml Intake Oral 340 ml IV Total 865.0 ml 235.0 ml Output Urine Total 560 ml 400 ml # Voids 2 General Appearance: WD/WN HEENT: normocephalic, atraumatic Respiratory/Chest: chest wall non-tender, lungs clear Cardiovascular: normal peripheral pulses, normal rate Abdomen: normal bowel sounds, soft, non tender Genitourinary: normal external genitalia Extremities: no cyanosis Neurologic/Psychiatric: design teacher II-XII 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, no motor/sensory deficits Laboratory Tests 04/24/16 05:50: Prothrombin Time 34.8H, Prothromb Time International Ratio 3.3H Current Medications Medications (Trade) Dose Ordered Sig/Con Route PRN Reason Start Time Stop Time Status Last Admin Dose Admin Azithromycin 500 mg/Dextrose 275 ml @ 275 mls/hr Q24HRS IV 04/19/16 13:00 04/25/16 13:59 04/23/16 12:00 Digoxin (Lanoxin) 0.125 mg DAILY ORAL 04/19/16 09:00 05/19/16 08:59 04/24/16 08:14 Diltiazem HCl 240 mg 240 mg DAILY ORAL 04/23/16 09:00 05/23/16 08:59 04/24/16 08:14 Divalproex Sodium (Depakote Sprinkles) 125 mg EVERY 12 HOURS ORAL 04/20/16 21:00 05/20/16 20:59 04/24/16 08:14 Hydralazine HCl (Apresoline) 25 mg Q8HR ORAL 04/18/16 22:00 05/18/16 21:59 04/24/16 06:15 Isosorbide Dinitrate (Isordil) 10 mg Q8HR ORAL 04/18/16 22:00 05/18/16 21:59 04/24/16 06:15 Levetiracetam/ Dextrose (Keppra/D5W) 110 ml @ 422.175 mls/hr Q12HR IV 04/24/16 09:00 05/24/16 08:59 04/24/16 08:13 Levothyroxine Sodium 75 mcg 75 mcg DAILY@0630 ORAL 04/19/16 06:30 05/19/16 06:29 04/24/16 06:11 Metoprolol Tartrate (Lopressor) 50 mg Q8HR ORAL 04/24/16 08:30 05/24/16 08:29 04/24/16 08:24 Piperacillin Sod/ Tazobactam Sod/ Dextrose (Zosyn/D5W) 110 ml @ 27.5 mls/hr EVERY 8 HOURS IVPB 04/19/16 14:00 04/26/16 05:59 04/24/16 06:08 Tamsulosin HCl (Flomax) 0.4 mg BEDTIME ORAL 04/18/16 21:00 05/18/16 20:59 04/23/16 22:05 Warfarin Sodium (Coumadin per pharmacy) 1 ea DAILY PRN MISC . 04/22/16 08:30 05/19/16 16:59 CAROLINA RENAE Apr 24, 2016 12:06
[2016-04-24] MEDS: Azithromycin 500 MG in D5W 275 ML IV SCH (13:01)
[2016-04-24] MEDS ORDERED: Metoprolol 50mg tab ORAL SCH (14:00)
[2016-04-24] MEDS ORDERED: NS 275ml ONE (14:07)
[2016-04-24 16:00] VITALS: BP 122/83
--- NOTE | 2016-04-24 16:13 | Cardiac Electrophysiology PN ---
Assessment/Plan Problem List: (1) Arrhythmia Assessment & Plan: AF w. RVR (2) Cardiomyopathy (3) Seizure disorder (4) Vascular dementia with behavior disturbance (5) CVA (cerebral infarction) Status: stable, unchanged Status Narrative Mr. Ybarra is now taking po meds. ventricular rates remain elevated at times in AF. Inr continues to increase and is above therapeutic range, at 3.3 there is ? of subacute cva on head MRI Assessment/Plan continue diltiazem - dose changed to qd - long acting, for compliance reasons. continue digoxin Increase metoprolol to tid, as v rates elevated in AF Decrease warfarin and repeat inr in am Subjective ROS Limited/Unobtainable: No Subjective Events noted. Mr Ybarra is intermittently agitated/ confused. Attempting to get out of bed. Objective Last 24 Hour Vital Signs Date Time Temp Pulse Resp B/P Pulse Ox O2 Delivery O2 Flow Rate FiO2 04/24/16 13:03 105/63 04/24/16 13:02 94 105/63 04/24/16 13:02 105/63 04/24/16 12:04 97.7 89 18 105/63 99 Room Air 04/24/16 11:50 79 04/24/16 11:50 79 04/24/16 08:24 126 103/60 04/24/16 08:14 126 103/60 04/24/16 08:14 126 04/24/16 08:02 97.0 121 20 103/60 96 Room Air 04/24/16 07:52 139 04/24/16 06:15 115/65 04/24/16 06:15 115/65 04/24/16 04:14 98.5 68 19 120/95 94 Room Air 04/24/16 04:00 105 04/24/16 00:32 97.5 65 20 117/78 99 Room Air 04/24/16 00:00 99 04/23/16 22:06 77 137/83 04/23/16 22:06 137/83 04/23/16 22:05 137/83 04/23/16 20:00 96.4 69 18 121/74 100 Room Air 04/23/16 20:00 98 General Appearance: WD/WN, alert, mild distress EENT: PERRL/EOMI Neck: supple, no JVD Rhythm: Afib Cardiovascular: normal rate, no gallop/murmur, irregularly irregular Respiratory/Chest: lungs clear - clear anteriorly Abdomen: non tender, soft Neurologic: other - R hemiparesis Intake and Output 04/23/16 04/24/16 19:00 07:00 Intake Total 1205.0 ml 235.0 ml Output Total 560 ml 400 ml Balance 645.0 ml -165.0 ml Intake Oral 340 ml IV Total 865.0 ml 235.0 ml Output Urine Total 560 ml 400 ml # Voids 2 Laboratory Tests Test 04/24/16 05:50 Prothrombin Time 34.8 SEC (9.30-11.50) H Prothromb Time International Ratio 3.3 (0.9-1.1) H DESIREE ROMERO Apr 24, 2016 16:13
[2016-04-24] MEDS ORDERED: Warfarin Sodium 1mg ORAL SCH (18:00)
[2016-04-24 20:00] VITALS: BP 117/74
[2016-04-24] MEDS: Tamsulosin 0.4mg cap ORAL SCH (21:55)
[2016-04-25 00:26] VITALS: BP 107/61
[2016-04-25 04:14] VITALS: BP 120/72
[2016-04-25] MEDS: Piperacillin/Tazobactam 3.375 GM in D5W 110 ML IVPB SCH ×2 (06:00→14:34)
[2016-04-25] MEDS: Metoprolol 50mg tab ORAL SCH ×3 (06:06→22:03)
[2016-04-25] MEDS: HydrALAZINE 25mg tab ORAL SCH ×3 (06:06→22:00)
[2016-04-25 07:12] LABS: INR 3.5 (0.9-1.1); PROTHROMBIN TIME 37.3 SEC (9.30-11.50)
[2016-04-25 07:45] VITALS: BP 114/75
[2016-04-25] MEDS: levETIRAcetam 1,500 MG in D5W 95 ML IV SCH ×2 (09:09→20:58)
[2016-04-25] MEDS: Depakote 125mg Sprinkles ORAL SCH ×2 (09:09→22:00)
[2016-04-25] MEDS: Digoxin 0.125mg tab ORAL SCH (09:09)
[2016-04-25] MEDS: Diltiazem CD 240mg cap ORAL SCH (09:09)
[2016-04-25 11:44] VITALS: BP 111/58
--- NOTE | 2016-04-25 12:08 | Pulmonology Progress Note ---
Assessment/Plan Problems: (1) Atrial fibrillation with RVR (2) Seizure disorder (3) Pneumonia (4) Arrhythmia (5) Dementia, vascular (6) CKD (chronic kidney disease) (7) Vascular dementia with behavior disturbance (8) CVA (cerebral infarction) (9) Cardiomyopathy Assessment/Plan still coughing HR remains high getting oral meds, d/w at bed side extensively INR therapeutic on Dig, cardizem and metoprolol, dose was increased dc planning when ok with Cardio Subjective ROS Limited/Unobtainable: No Constitutional: Reports: no symptoms HEENT: Repors: no symptoms Respiratory: Reports: no symptoms Cardiovascular: Reports: no symptoms Allergies: Coded Allergies: MARYANA INHIBITORS (Unverified Allergy, Unknown, 01/31/14) ARB-ANGIOTENSIN RECEPTOR ANTAGONIST (Unverified Allergy, Unknown, 01/31/14) Objective Last 24 Hour Vital Signs Date Time Temp Pulse Resp B/P Pulse Ox O2 Delivery O2 Flow Rate FiO2 04/25/16 11:44 98.1 99 20 111/58 98 Room Air 04/25/16 09:09 113 114/75 04/25/16 09:09 113 04/25/16 08:00 103 04/25/16 07:45 97.5 113 20 114/75 97 Room Air 04/25/16 06:06 78 121/62 04/25/16 06:06 121/62 04/25/16 06:06 121/62 04/25/16 04:14 98.6 78 19 120/72 96 Room Air 04/25/16 04:00 103 04/25/16 00:26 97.5 72 20 107/61 98 Room Air 04/25/16 00:00 93 04/24/16 21:58 79 125/88 04/24/16 21:58 125/88 04/24/16 21:57 125/88 04/24/16 20:00 95 04/24/16 20:00 96.4 69 18 117/74 98 Room Air 04/24/16 16:00 96.3 72 18 122/83 98 Room Air 04/24/16 15:45 85 04/24/16 13:03 105/63 04/24/16 13:02 94 105/63 04/24/16 13:02 105/63 Intake and Output 04/24/16 04/25/16 19:00 07:00 Intake Total 817.5 ml 559.675 ml Output Total 300 ml 400 ml Balance 517.5 ml 159.675 ml Intake Oral 240 ml IV Total 577.5 ml 559.675 ml Output Urine Total 300 ml 400 ml General Appearance: WD/WN HEENT: normocephalic, anicteric Respiratory/Chest: chest wall non-tender, lungs clear Cardiovascular: normal peripheral pulses, normal rate Extremities: no cyanosis Skin: no rash Neurologic/Psychiatric: quality consultant II-XII 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 Laboratory Tests 04/25/16 04:40: Prothrombin Time 37.3H, Prothromb Time International Ratio 3.5H Current Medications Medications (Trade) Dose Ordered Sig/Con Route PRN Reason Start Time Stop Time Status Last Admin Dose Admin Azithromycin 500 mg/Dextrose 275 ml @ 275 mls/hr Q24HRS IV 04/19/16 13:00 04/25/16 13:59 04/24/16 13:01 Digoxin (Lanoxin) 0.125 mg DAILY ORAL 04/19/16 09:00 05/19/16 08:59 04/25/16 09:09 Diltiazem HCl 240 mg 240 mg DAILY ORAL 04/23/16 09:00 05/23/16 08:59 04/25/16 09:09 Divalproex Sodium (Depakote Sprinkles) 125 mg EVERY 12 HOURS ORAL 04/20/16 21:00 05/20/16 20:59 04/25/16 09:09 Gabapentin (Neurontin) 200 mg TIDPRN PRN ORAL Pain Scale (6-10) 04/24/16 19:30 05/24/16 19:29 Hydralazine HCl (Apresoline) 25 mg Q8HR ORAL 04/18/16 22:00 05/18/16 21:59 04/25/16 06:06 Isosorbide Dinitrate (Isordil) 10 mg Q8HR ORAL 04/18/16 22:00 05/18/16 21:59 04/25/16 06:06 Levetiracetam/ Dextrose (Keppra/D5W) 110 ml @ 422.175 mls/hr Q12HR IV 04/24/16 09:00 05/24/16 08:59 04/25/16 09:09 Levothyroxine Sodium 75 mcg 75 mcg DAILY@0630 ORAL 04/19/16 06:30 05/19/16 06:29 04/25/16 06:01 Metoprolol Tartrate (Lopressor) 50 mg Q8HR ORAL 04/24/16 08:30 05/24/16 08:29 04/25/16 06:06 Piperacillin Sod/ Tazobactam Sod/ Dextrose (Zosyn/D5W) 110 ml @ 27.5 mls/hr EVERY 8 HOURS IVPB 04/19/16 14:00 04/26/16 05:59 04/25/16 06:00 Tamsulosin HCl (Flomax) 0.4 mg BEDTIME ORAL 04/18/16 21:00 05/18/16 20:59 04/24/16 21:55 Warfarin Sodium (Coumadin per pharmacy) 1 ea DAILY PRN MISC . 04/22/16 08:30 05/19/16 16:59 CAROLINA RENAE Apr 25, 2016 12:07
[2016-04-25] MEDS: Azithromycin 500 MG in D5W 275 ML IV SCH (13:13)
--- NOTE | 2016-04-25 14:19 | Cardiac Electrophysiology PN ---
Assessment/Plan Problem List: (1) Arrhythmia Assessment & Plan: AF w. RVR (2) Cardiomyopathy (3) Seizure disorder (4) Vascular dementia with behavior disturbance (5) CVA (cerebral infarction) Status: stable, progressing Status Narrative Mr. Ybarra remains in AF, w/ ventricular rates controlled w/ digoxin, diltiazem CD and metoprolol. Short pause yesterday - appx 2 sec, asymptomatic INR remains above therapeutic range, increasing to 3.5 today Assessment/Plan Continue current rate control meds. Hold warfarin and repeat inr in am Can be discharged from arrhythmia standpoint. will need close outpt f/u of inr in rehab ctr Subjective ROS Limited/Unobtainable: No Subjective Events noted. Mr Ybarra has no c/o. Appears calmer Objective Last 24 Hour Vital Signs Date Time Temp Pulse Resp B/P Pulse Ox O2 Delivery O2 Flow Rate FiO2 04/25/16 13:57 99 111/58 04/25/16 13:57 111/58 04/25/16 13:57 111/58 04/25/16 11:44 98.1 99 20 111/58 98 Room Air 04/25/16 09:09 113 114/75 04/25/16 09:09 113 04/25/16 08:00 103 04/25/16 07:45 97.5 113 20 114/75 97 Room Air 04/25/16 06:06 78 121/62 04/25/16 06:06 121/62 04/25/16 06:06 121/62 04/25/16 04:14 98.6 78 19 120/72 96 Room Air 04/25/16 04:00 103 04/25/16 00:26 97.5 72 20 107/61 98 Room Air 04/25/16 00:00 93 04/24/16 21:58 79 125/88 04/24/16 21:58 125/88 04/24/16 21:57 125/88 04/24/16 20:00 95 04/24/16 20:00 96.4 69 18 117/74 98 Room Air 04/24/16 16:00 96.3 72 18 122/83 98 Room Air 04/24/16 15:45 85 General Appearance: WD/WN, no apparent distress, alert Neck: supple, no JVD Rhythm: Afib Cardiovascular: no gallop/murmur, irregularly irregular Respiratory/Chest: lungs clear - clear anteriorly Extremities: no swelling Intake and Output 04/24/16 04/25/16 19:00 07:00 Intake Total 817.5 ml 559.675 ml Output Total 300 ml 400 ml Balance 517.5 ml 159.675 ml Intake Oral 240 ml IV Total 577.5 ml 559.675 ml Output Urine Total 300 ml 400 ml Laboratory Tests Test 04/25/16 04:40 Prothrombin Time 37.3 SEC (9.30-11.50) H Prothromb Time International Ratio 3.5 (0.9-1.1) H DESIREE ROMERO Apr 25, 2016 14:19
--- NOTE | 2016-04-25 15:09 | Internal Med Progress Note ---
Subjective Date of Service: Apr 25, 2016 Physician Name Laura Lange Attending Physician Ondina Geiger MD Current Medications Medications (Trade) Dose Ordered Sig/Con Route PRN Reason Start Time Stop Time Status Last Admin Dose Admin Digoxin (Lanoxin) 0.125 mg DAILY ORAL 04/19/16 09:00 05/19/16 08:59 04/25/16 09:09 Diltiazem HCl 240 mg 240 mg DAILY ORAL 04/23/16 09:00 05/23/16 08:59 04/25/16 09:09 Divalproex Sodium (Depakote Sprinkles) 125 mg EVERY 12 HOURS ORAL 04/20/16 21:00 05/20/16 20:59 04/25/16 09:09 Gabapentin (Neurontin) 200 mg TIDPRN PRN ORAL Pain Scale (6-10) 04/24/16 19:30 05/24/16 19:29 Hydralazine HCl (Apresoline) 25 mg Q8HR ORAL 04/18/16 22:00 05/18/16 21:59 04/25/16 13:57 Isosorbide Dinitrate (Isordil) 10 mg Q8HR ORAL 04/18/16 22:00 05/18/16 21:59 04/25/16 13:57 Levetiracetam/ Dextrose (Keppra/D5W) 110 ml @ 422.175 mls/hr Q12HR IV 04/24/16 09:00 05/24/16 08:59 04/25/16 09:09 Levothyroxine Sodium 75 mcg 75 mcg DAILY@0630 ORAL 04/19/16 06:30 05/19/16 06:29 04/25/16 06:01 Metoprolol Tartrate (Lopressor) 50 mg Q8HR ORAL 04/24/16 08:30 05/24/16 08:29 04/25/16 13:57 Piperacillin Sod/ Tazobactam Sod/ Dextrose (Zosyn/D5W) 110 ml @ 27.5 mls/hr EVERY 8 HOURS IVPB 04/19/16 14:00 04/26/16 05:59 04/25/16 14:34 Tamsulosin HCl (Flomax) 0.4 mg BEDTIME ORAL 04/18/16 21:00 05/18/16 20:59 04/24/16 21:55 Warfarin Sodium (Coumadin per pharmacy) 1 ea DAILY PRN MISC . 04/22/16 08:30 05/19/16 16:59 Allergies: Coded Allergies: MARYANA INHIBITORS (Unverified Allergy, Unknown, 01/31/14) ARB-ANGIOTENSIN RECEPTOR ANTAGONIST (Unverified Allergy, Unknown, 01/31/14) ROS Limited/Unobtainable: No Constitutional: Reports: no symptoms HEENT: Reports: no symptoms Cardiovascular: Reports: no symptoms Respiratory: Reports: no symptoms Gastrointestinal/Abdominal: Reports: no symptoms Genitourinary: Reports: no symptoms Neurologic/Psychiatric: Reports: no symptoms Subjective 80 YO M Admitted with recurrent seizure. Now subacute Cerebral vasc accident. Cover For Int Med-Dr Geiger. Objective Last Vital Signs Date Time Temp Pulse Resp B/P Pulse Ox O2 Delivery O2 Flow Rate FiO2 04/25/16 13:57 99 111/58 04/25/16 11:44 98.1 20 98 Room Air General Appearance: WD/WN, no apparent distress, alert EENT: PERRL/EOMI, normal ENT inspection Neck: non-tender, normal alignment, supple, normal inspection Cardiovascular: normal peripheral pulses, normal rate, regular rhythm, no gallop/murmur, no JVD Respiratory/Chest: chest wall non-tender, crackles/rales, rhonchi - bilaterally , expiratory wheezing Abdomen: normal bowel sounds, non tender, soft, no organomegaly, no mass Extremities: other - right hemiplegia Neurologic: 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 II-XII 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, other - right hemiplegia Skin: normal pigmentation, warm/dry Laboratory Tests Test 04/25/16 04:40 Prothrombin Time 37.3 SEC (9.30-11.50) H Prothromb Time International Ratio 3.5 (0.9-1.1) H Intake and Output 04/24/16 04/25/16 19:00 07:00 Intake Total 817.5 ml 559.675 ml Output Total 300 ml 400 ml Balance 517.5 ml 159.675 ml Intake Oral 240 ml IV Total 577.5 ml 559.675 ml Output Urine Total 300 ml 400 ml Assessment/Plan Problem List: (1) Hemiplegia affecting right dominant side (2) Seizure disorder Assessment & Plan: Cont keppra per neurology (3) Pneumonia Assessment & Plan: Continue zosyn per pulmonary (4) stroke L MCA, subacute, ischemic Assessment & Plan: See neurology note. Cont physical and occupational therapy (5) Acute renal failure (6) Hyperkalemia (7) Dementia, vascular (8) Afib Assessment & Plan: See cardiology note. Cont coumadin, digoxin, diltiazem and metoprolol per cardiology (9) Cardiomyopathy Status: progressing LAURA LANGE Apr 25, 2016 15:09
--- NOTE | 2016-04-25 15:09 | Infectious Diseases Prog Note ---
Assessment/Plan Assessment/Plan ASSESSMENT: 80 y/o male with: // Chronic cough ? Asp Pna ?PND ?asthma ?allergic Scx : not sent - CXR 04/18: Mild central interstitial prominence, calcified granuloma in the left base. No interval change from 04/16/16. 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 - h/o ICMO, trop(-) x1, BNP 1796 - TTE 05/2014: EF 35-40%, grade I diastolic dysfunction, mod MR, TR, pulmonary HTN // Vascular dementia, h/o CVA MRI : acute infarct involving a small focus of viable brain tissue within the old infarct // ARF on CKD3 // Seizure disorder // A-fib // h/o MRSA colonization // Previous DNR PLAN: - DC azithromycin, Zosyn d# 7 / 7 ( SP cefepime d# 5 ) ( 04/13 SP IV vancomycin d# 2 ) - f/u cultures ( Bl ) - monitor CBC, temperatures - monitor BMP - monitor CXR Subjective Constitutional: Denies: anorexia, chills, drenching sweats, fatigue, fever, no symptoms, other Allergies: Coded Allergies: MARYANA INHIBITORS (Unverified Allergy, Unknown, 01/31/14) ARB-ANGIOTENSIN RECEPTOR ANTAGONIST (Unverified Allergy, Unknown, 01/31/14) Objective Vital Signs Last 24 Hour Vital Signs Date Time Temp Pulse Resp B/P Pulse Ox O2 Delivery O2 Flow Rate FiO2 04/25/16 13:57 99 111/58 04/25/16 13:57 111/58 04/25/16 13:57 111/58 04/25/16 11:44 98.1 99 20 111/58 98 Room Air 04/25/16 09:09 113 114/75 04/25/16 09:09 113 04/25/16 08:00 103 04/25/16 07:45 97.5 113 20 114/75 97 Room Air 04/25/16 06:06 78 121/62 04/25/16 06:06 121/62 04/25/16 06:06 121/62 04/25/16 04:14 98.6 78 19 120/72 96 Room Air 04/25/16 04:00 103 04/25/16 00:26 97.5 72 20 107/61 98 Room Air 04/25/16 00:00 93 04/24/16 21:58 79 125/88 04/24/16 21:58 125/88 04/24/16 21:57 125/88 04/24/16 20:00 95 04/24/16 20:00 96.4 69 18 117/74 98 Room Air 04/24/16 16:00 96.3 72 18 122/83 98 Room Air 04/24/16 15:45 85 Height (Feet): 6 Height (Inches): 0.00 Weight (Pounds): 220 HEENT: anicteric Respiratory/Chest: lungs clear Cardiovascular: regular rhythm Abdomen: no organomegaly Laboratory Tests Test 04/25/16 04:40 Prothrombin Time 37.3 SEC (9.30-11.50) H Prothromb Time International Ratio 3.5 (0.9-1.1) H Current Medications Medications (Trade) Dose Ordered Sig/Con Route PRN Reason Start Time Stop Time Status Last Admin Dose Admin Digoxin (Lanoxin) 0.125 mg DAILY ORAL 04/19/16 09:00 05/19/16 08:59 04/25/16 09:09 Diltiazem HCl 240 mg 240 mg DAILY ORAL 04/23/16 09:00 05/23/16 08:59 04/25/16 09:09 Divalproex Sodium (Depakote Sprinkles) 125 mg EVERY 12 HOURS ORAL 04/20/16 21:00 05/20/16 20:59 04/25/16 09:09 Gabapentin (Neurontin) 200 mg TIDPRN PRN ORAL Pain Scale (6-10) 04/24/16 19:30 05/24/16 19:29 Hydralazine HCl (Apresoline) 25 mg Q8HR ORAL 04/18/16 22:00 05/18/16 21:59 04/25/16 13:57 Isosorbide Dinitrate (Isordil) 10 mg Q8HR ORAL 04/18/16 22:00 05/18/16 21:59 04/25/16 13:57 Levetiracetam/ Dextrose (Keppra/D5W) 110 ml @ 422.175 mls/hr Q12HR IV 04/24/16 09:00 05/24/16 08:59 04/25/16 09:09 Levothyroxine Sodium 75 mcg 75 mcg DAILY@0630 ORAL 04/19/16 06:30 05/19/16 06:29 04/25/16 06:01 Metoprolol Tartrate (Lopressor) 50 mg Q8HR ORAL 04/24/16 08:30 05/24/16 08:29 04/25/16 13:57 Piperacillin Sod/ Tazobactam Sod/ Dextrose (Zosyn/D5W) 110 ml @ 27.5 mls/hr EVERY 8 HOURS IVPB 04/19/16 14:00 04/26/16 05:59 04/25/16 14:34 Tamsulosin HCl (Flomax) 0.4 mg BEDTIME ORAL 04/18/16 21:00 05/18/16 20:59 04/24/16 21:55 Warfarin Sodium (Coumadin per pharmacy) 1 ea DAILY PRN MISC . 04/22/16 08:30 05/19/16 16:59 LICHA SCHERER M.D. Apr 25, 2016 15:09
[2016-04-25 16:00] VITALS: BP 104/67
[2016-04-25 20:00] VITALS: BP 111/61
[2016-04-25] MEDS: Tamsulosin 0.4mg cap ORAL SCH (22:00)
[2016-04-26 00:13] VITALS: BP 117/65
[2016-04-26 04:11] VITALS: BP 142/94
[2016-04-26] MEDS: HydrALAZINE 25mg tab ORAL SCH ×3 (05:48→21:46)
[2016-04-26] MEDS: Metoprolol 50mg tab ORAL SCH ×3 (05:49→21:46)
[2016-04-26 06:55] LABS: BASOPHILS % (AUTO) 1.1 % (0.0-2.0); EOSINOPHILS % (AUTO) 8.7 % (0.0-3.0); LYMPHOCYTES % (AUTO) 29.9 % (20.0-45.0); MEAN CORPUSCULAR HGB CONC 31.8 G/DL (32.0-36.0); MEAN CORPUSCULAR VOLUME 91 FL (80-99); MONOCYTES % (AUTO) 11.2 % (1.0-10.0); NEUTROPHILS % (AUTO) 49.2 % (45.0-75.0); PLATELET COUNT 180 K/UL (150-450); RED BLOOD COUNT 3.52 M/UL (4.70-6.10); RED CELL DISTRIBUTION WIDTH 15.6 % (11.6-14.8); WHITE BLOOD COUNT 6.6 K/UL (4.8-10.8)
[2016-04-26 07:17] LABS: INR 2.9 (0.9-1.1); PROTHROMBIN TIME 30.4 SEC (9.30-11.50)
[2016-04-26 08:00] VITALS: BP 116/62
[2016-04-26 08:15] LABS: ANION GAP 18 (5-15); CALCIUM 8.6 mg/dL (8.6-10.2); CARBON DIOXIDE 20 mEQ/L (20-30); CHLORIDE 101 mEQ/L (98-107); CREATININE 3.2 mg/dL (0.7-1.2); HEMOLYSIS 1; POTASSIUM 4.2 mEQ/L (3.4-4.9); SODIUM 139 mEQ/L (135-145)
[2016-04-26] MEDS: levETIRAcetam 1,500 MG in D5W 95 ML IV SCH (08:33)
[2016-04-26] MEDS: Depakote 125mg Sprinkles ORAL SCH ×2 (08:33→20:56)
[2016-04-26] MEDS: Diltiazem CD 240mg cap ORAL SCH (08:34)
[2016-04-26] MEDS: Digoxin 0.125mg tab ORAL SCH (08:34)
--- NOTE | 2016-04-26 09:21 | General Progress Note ---
Assessment/Plan Status: stable Assessment/Plan 1. Seizure disorders, recurrent episode. 2. 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 3. Abnormal MRI finding-suggestive of small sub acute CVA 3. Atrial fibrillation, rapid ventricular rate. 4. Cardiomyopathy with ejection fraction less than 20. 5. Chronic kidney disease at baseline with a creatinine level of 2, serum potassium 5. 6. Hyperkalemia. 7. Dementia. 8. Gastrointestinal and deep vein thrombosis prophylaxis. Plan: Medically stable. followup as an outpatient Subjective ROS Limited/Unobtainable: Yes Allergies: Coded Allergies: MARYANA INHIBITORS (Unverified Allergy, Unknown, 01/31/14) ARB-ANGIOTENSIN RECEPTOR ANTAGONIST (Unverified Allergy, Unknown, 01/31/14) Objective Last 24 Hour Vital Signs Date Time Temp Pulse Resp B/P Pulse Ox O2 Delivery O2 Flow Rate FiO2 04/26/16 08:34 86 116/62 04/26/16 08:34 86 04/26/16 08:00 97.3 86 18 116/62 97 Room Air 04/26/16 05:49 75 102/66 04/26/16 05:48 102/66 04/26/16 05:48 102/66 04/26/16 04:11 97.5 78 21 142/94 98 Room Air 04/26/16 04:00 121 04/26/16 00:13 98.1 69 19 117/65 97 Room Air 04/26/16 00:00 99 04/25/16 22:03 128 111/56 04/25/16 22:00 111/61 04/25/16 20:00 107 04/25/16 20:00 97.5 72 18 111/61 98 Room Air 04/25/16 16:00 81 04/25/16 16:00 97.7 69 20 104/67 98 Room Air 04/25/16 13:57 99 111/58 04/25/16 13:57 111/58 04/25/16 13:57 111/58 04/25/16 12:00 87 04/25/16 11:44 98.1 99 20 111/58 98 Room Air Intake and Output 04/25/16 04/26/16 19:00 07:00 Intake Total 1019.7 ml Output Total 350 ml 200 ml Balance 669.7 ml -200 ml Intake Oral 240 ml IV Total 779.7 ml Output Urine Total 350 ml 200 ml # Bowel Movements 1 Laboratory Tests 04/26/16 06:05: White Blood Count 6.6, Red Blood Count 3.52L, Hemoglobin 10.2L, Hematocrit 32.0L , Mean Corpuscular Volume 91, Mean Corpuscular Hemoglobin 29.0, Mean Corpuscular Hemoglobin Concent 31.8L, Red Cell Distribution Width 15.6H, Platelet Count 180, Mean Platelet Volume 7.0, Neutrophils (%) (Auto) 49.2, Lymphocytes (%) (Auto) 29.9, Monocytes (%) (Auto) 11.2H, Eosinophils (%) (Auto) 8.7H, Basophils (%) (Auto) 1.1, Prothrombin Time 30.4H, Prothromb Time International Ratio 2.9H, Sodium Level 139, Potassium Level 4.2, Chloride Level 101, Carbon Dioxide Level 20, Anion Gap 18H, Blood Urea Nitrogen 37H, Creatinine 3.2H, Estimat Glomerular Filtration Rate , Glucose Level 96, Calcium Level 8.6 Height (Feet): 6 Height (Inches): 0.00 Weight (Pounds): 220 General Appearance: no apparent distress EENT: PERRL/EOMI Neck: supple Cardiovascular: normal rate Respiratory/Chest: lungs clear Extremities: other - Right Hemiplegia at base line Neurologic: disoriented Ondina Geiger MD Apr 26, 2016 09:21
--- NOTE | 2016-04-26 10:10 | Pulmonology Progress Note ---
Assessment/Plan Problems: (1) Atrial fibrillation with RVR (2) Seizure disorder (3) Pneumonia (4) Arrhythmia (5) Dementia, vascular (6) CKD (chronic kidney disease) (7) Vascular dementia with behavior disturbance (8) CVA (cerebral infarction) (9) Cardiomyopathy Assessment/Plan still coughing HR better controlled getting oral meds, d/w at bed side extensively INR therapeutic on Dig, cardizem and metoprolol, dose was increased may go to med/surg Subjective ROS Limited/Unobtainable: No Constitutional: Reports: no symptoms HEENT: Repors: no symptoms Respiratory: Reports: no symptoms Cardiovascular: Reports: no symptoms Allergies: Coded Allergies: MARYANA INHIBITORS (Unverified Allergy, Unknown, 01/31/14) ARB-ANGIOTENSIN RECEPTOR ANTAGONIST (Unverified Allergy, Unknown, 01/31/14) Objective Last 24 Hour Vital Signs Date Time Temp Pulse Resp B/P Pulse Ox O2 Delivery O2 Flow Rate FiO2 04/26/16 08:34 86 116/62 04/26/16 08:34 86 04/26/16 08:00 97.3 86 18 116/62 97 Room Air 04/26/16 05:49 75 102/66 04/26/16 05:48 102/66 04/26/16 05:48 102/66 04/26/16 04:11 97.5 78 21 142/94 98 Room Air 04/26/16 04:00 121 04/26/16 00:13 98.1 69 19 117/65 97 Room Air 04/26/16 00:00 99 04/25/16 22:03 128 111/56 04/25/16 22:00 111/61 04/25/16 20:00 107 04/25/16 20:00 97.5 72 18 111/61 98 Room Air 04/25/16 16:00 81 04/25/16 16:00 97.7 69 20 104/67 98 Room Air 04/25/16 13:57 99 111/58 04/25/16 13:57 111/58 04/25/16 13:57 111/58 04/25/16 12:00 87 04/25/16 11:44 98.1 99 20 111/58 98 Room Air Intake and Output 04/25/16 04/26/16 19:00 07:00 Intake Total 1019.7 ml Output Total 350 ml 200 ml Balance 669.7 ml -200 ml Intake Oral 240 ml IV Total 779.7 ml Output Urine Total 350 ml 200 ml # Bowel Movements 1 General Appearance: WD/WN HEENT: normocephalic, atraumatic Respiratory/Chest: chest wall non-tender, lungs clear Cardiovascular: normal peripheral pulses, regular rhythm Abdomen: normal bowel sounds, no organomegaly Extremities: no cyanosis Skin: no lesions Microbiology Date/Time Source Procedure Growth Status 04/24/16 19:55 Sputum Gram Stain Pending Resulted 04/24/16 19:55 Sputum Sputum Culture - Preliminary NORMAL SHARYN PRESENT Resulted Laboratory Tests 04/26/16 06:05: White Blood Count 6.6, Red Blood Count 3.52L, Hemoglobin 10.2L, Hematocrit 32.0L , Mean Corpuscular Volume 91, Mean Corpuscular Hemoglobin 29.0, Mean Corpuscular Hemoglobin Concent 31.8L, Red Cell Distribution Width 15.6H, Platelet Count 180, Mean Platelet Volume 7.0, Neutrophils (%) (Auto) 49.2, Lymphocytes (%) (Auto) 29.9, Monocytes (%) (Auto) 11.2H, Eosinophils (%) (Auto) 8.7H, Basophils (%) (Auto) 1.1, Prothrombin Time 30.4H, Prothromb Time International Ratio 2.9H, Sodium Level 139, Potassium Level 4.2, Chloride Level 101, Carbon Dioxide Level 20, Anion Gap 18H, Blood Urea Nitrogen 37H, Creatinine 3.2H, Estimat Glomerular Filtration Rate , Glucose Level 96, Calcium Level 8.6 Current Medications Medications (Trade) Dose Ordered Sig/Con Route PRN Reason Start Time Stop Time Status Last Admin Dose Admin Digoxin (Lanoxin) 0.125 mg DAILY ORAL 04/19/16 09:00 05/19/16 08:59 04/26/16 08:34 Diltiazem HCl 240 mg 240 mg DAILY ORAL 04/23/16 09:00 05/23/16 08:59 04/26/16 08:34 Divalproex Sodium (Depakote Sprinkles) 125 mg EVERY 12 HOURS ORAL 04/20/16 21:00 05/20/16 20:59 04/26/16 08:33 Gabapentin (Neurontin) 200 mg TIDPRN PRN ORAL Pain Scale (6-10) 04/24/16 19:30 2/27/17 19:29 Hydralazine HCl (Apresoline) 25 mg Q8HR ORAL 04/18/16 22:00 05/18/16 21:59 04/25/16 13:57 Isosorbide Dinitrate (Isordil) 10 mg Q8HR ORAL 04/18/16 22:00 05/18/16 21:59 04/25/16 22:00 Levetiracetam/ Dextrose (Keppra/D5W) 110 ml @ 422.175 mls/hr Q12HR IV 04/24/16 09:00 05/24/16 08:59 04/26/16 08:33 Levothyroxine Sodium (Synthroid) 75 mcg DAILY@0630 ORAL 04/19/16 06:30 05/19/16 06:29 04/26/16 05:47 Metoprolol Tartrate (Lopressor) 50 mg Q8HR ORAL 04/24/16 08:30 05/24/16 08:29 04/25/16 22:03 Tamsulosin HCl (Flomax) 0.4 mg BEDTIME ORAL 04/18/16 21:00 05/18/16 20:59 04/25/16 22:00 Warfarin Sodium (Coumadin per pharmacy) 1 ea DAILY PRN MISC . 04/22/16 08:30 05/19/16 16:59 CAROLINA RENAE Apr 26, 2016 10:10
[2016-04-26 12:00] VITALS: BP 116/72
[2016-04-26 16:00] VITALS: BP 127/80
[2016-04-26] MEDS ORDERED: Warfarin Sodium 1mg ORAL ONE (17:00)
--- NOTE | 2016-04-26 18:40 | Infectious Diseases Prog Note ---
Assessment/Plan Assessment/Plan ASSESSMENT: 80 y/o male with: // Chronic cough ? Asp Pna ?PND ?asthma ?allergic Scx : not sent - CXR 04/18: Mild central interstitial prominence, calcified granuloma in the left base. No interval change from 04/16/16. 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 - h/o ICMO, trop(-) x1, BNP 1796 - TTE 05/2014: EF 35-40%, grade I diastolic dysfunction, mod MR, TR, pulmonary HTN // Vascular dementia, h/o CVA MRI : acute infarct involving a small focus of viable brain tissue within the old infarct // ARF on CKD3 // Seizure disorder // A-fib // h/o MRSA colonization // Previous DNR PLAN: - Monitor pt off of AB Rx ( 04/25 azithromycin, Zosyn d# 7 / 7 ) ( SP cefepime d# 5 ) ( 04/13 SP IV vancomycin d# 2 ) - f/u cultures ( Bl ) - monitor CBC, temperatures - monitor BMP - monitor CXR Subjective Constitutional: Denies: anorexia, chills, drenching sweats, fatigue, fever, no symptoms, other Allergies: Coded Allergies: MARYANA INHIBITORS (Unverified Allergy, Unknown, 01/31/14) ARB-ANGIOTENSIN RECEPTOR ANTAGONIST (Unverified Allergy, Unknown, 01/31/14) Objective Vital Signs Last 24 Hour Vital Signs Date Time Temp Pulse Resp B/P Pulse Ox O2 Delivery O2 Flow Rate FiO2 04/26/16 16:00 106 04/26/16 16:00 97.9 75 20 127/80 98 Room Air 04/26/16 13:53 84 116/72 04/26/16 13:53 116/72 04/26/16 13:53 116/72 04/26/16 12:00 112 04/26/16 12:00 98.1 84 18 116/72 98 Room Air 04/26/16 08:34 86 116/62 04/26/16 08:34 86 04/26/16 08:00 97.3 86 18 116/62 97 Room Air 04/26/16 08:00 100 04/26/16 05:49 75 102/66 04/26/16 05:48 102/66 04/26/16 05:48 102/66 04/26/16 04:11 97.5 78 21 142/94 98 Room Air 04/26/16 04:00 121 04/26/16 00:13 98.1 69 19 117/65 97 Room Air 04/26/16 00:00 99 04/25/16 22:03 128 111/56 04/25/16 22:00 111/61 04/25/16 20:00 107 04/25/16 20:00 97.5 72 18 111/61 98 Room Air Height (Feet): 6 Height (Inches): 0.00 Weight (Pounds): 220 HEENT: atraumatic Respiratory/Chest: lungs clear, no respiratory distress Cardiovascular: normal rate Abdomen: soft, non tender, no organomegaly Microbiology Date/Time Source Procedure Growth Status 04/24/16 19:55 Sputum Gram Stain - Final Resulted 04/24/16 19:55 Sputum Sputum Culture - Preliminary NORMAL SHARYN PRESENT Resulted Laboratory Tests Test 04/26/16 06:05 White Blood Count 6.6 K/UL (4.8-10.8) Red Blood Count 3.52 M/UL (4.70-6.10) L Hemoglobin 10.2 G/DL (14.2-18.0) L Hematocrit 32.0 % (42.0-52.0) L Mean Corpuscular Volume 91 FL (80-99) Mean Corpuscular Hemoglobin 29.0 PG (27.0-31.0) Mean Corpuscular Hemoglobin Concent 31.8 G/DL (32.0-36.0) L Red Cell Distribution Width 15.6 % (11.6-14.8) H Platelet Count 180 K/UL (150-450) Mean Platelet Volume 7.0 FL (6.5-10.1) Neutrophils (%) (Auto) 49.2 % (45.0-75.0) Lymphocytes (%) (Auto) 29.9 % (20.0-45.0) Monocytes (%) (Auto) 11.2 % (1.0-10.0) H Eosinophils (%) (Auto) 8.7 % (0.0-3.0) H Basophils (%) (Auto) 1.1 % (0.0-2.0) Prothrombin Time 30.4 SEC (9.30-11.50) H Prothromb Time International Ratio 2.9 (0.9-1.1) H Sodium Level 139 mEQ/L (135-145) Potassium Level 4.2 mEQ/L (3.4-4.9) Chloride Level 101 mEQ/L (98-107) Carbon Dioxide Level 20 mEQ/L (20-30) Anion Gap 18 (5-15) H Blood Urea Nitrogen 37 mg/dL (7-23) H Creatinine 3.2 mg/dL (0.7-1.2) H Estimat Glomerular Filtration Rate mL/min (>60) Glucose Level 96 mg/dL (74-106) Calcium Level 8.6 mg/dL (8.6-10.2) Current Medications Medications (Trade) Dose Ordered Sig/Con Route PRN Reason Start Time Stop Time Status Last Admin Dose Admin Digoxin (Lanoxin) 0.125 mg DAILY ORAL 04/19/16 09:00 05/19/16 08:59 04/26/16 08:34 Diltiazem HCl (Cardizem CD) 240 mg DAILY ORAL 04/23/16 09:00 05/23/16 08:59 04/26/16 08:34 Divalproex Sodium (Depakote Sprinkles) 125 mg EVERY 12 HOURS ORAL 04/20/16 21:00 05/20/16 20:59 04/26/16 08:33 Gabapentin (Neurontin) 200 mg TIDPRN PRN ORAL Pain Scale (6-10) 04/24/16 19:30 05/24/16 19:29 Hydralazine HCl (Apresoline) 25 mg Q8HR ORAL 04/18/16 22:00 05/18/16 21:59 04/26/16 13:53 Isosorbide Dinitrate (Isordil) 10 mg Q8HR ORAL 04/18/16 22:00 05/18/16 21:59 04/26/16 13:53 Levetiracetam (Keppra) 1,500 mg Q12HR ORAL 04/26/16 21:00 05/26/16 20:59 Levothyroxine Sodium (Synthroid) 75 mcg DAILY@0630 ORAL 04/19/16 06:30 05/19/16 06:29 04/26/16 05:47 Metoprolol Tartrate (Lopressor) 50 mg Q8HR ORAL 04/24/16 08:30 05/24/16 08:29 04/26/16 13:53 Tamsulosin HCl (Flomax) 0.4 mg BEDTIME ORAL 04/18/16 21:00 05/18/16 20:59 04/25/16 22:00 Warfarin Sodium (Coumadin per pharmacy) 1 ea DAILY PRN MISC . 04/22/16 08:30 05/19/16 16:59 LICHA SCHERER M.D. Apr 26, 2016 18:40
--- NOTE | 2016-04-26 19:27 | Cardiac Electrophysiology PN ---
Assessment/Plan Problem List: (1) Arrhythmia Assessment & Plan: AF w. RVR (2) Cardiomyopathy (3) Seizure disorder (4) Vascular dementia with behavior disturbance (5) CVA (cerebral infarction) Status: stable, unchanged Status Narrative Mr. Ybarra remains in AF, w/ ventricular rates elevated at times, despite rx w / b matthew, digoxin, ca channel matthew He is on warfarin w/ therapeutic INR Assessment/Plan increase metoprolol to 100 mg bid continue cardizem CD 240 mg/d and digoxin 0.125 mg/d check dig level warfarin per pharmacy. Subjective ROS Limited/Unobtainable: No Subjective Events noted. Pt remains w/ rapid ventricular rates in AF at times, but no sx reports that pt is not eating. Objective Last 24 Hour Vital Signs Date Time Temp Pulse Resp B/P Pulse Ox O2 Delivery O2 Flow Rate FiO2 04/26/16 16:00 106 04/26/16 16:00 97.9 75 20 127/80 98 Room Air 04/26/16 13:53 84 116/72 04/26/16 13:53 116/72 04/26/16 13:53 116/72 04/26/16 12:00 112 04/26/16 12:00 98.1 84 18 116/72 98 Room Air 04/26/16 08:34 86 116/62 04/26/16 08:34 86 04/26/16 08:00 97.3 86 18 116/62 97 Room Air 04/26/16 08:00 100 04/26/16 05:49 75 102/66 04/26/16 05:48 102/66 04/26/16 05:48 102/66 04/26/16 04:11 97.5 78 21 142/94 98 Room Air 04/26/16 04:00 121 04/26/16 00:13 98.1 69 19 117/65 97 Room Air 04/26/16 00:00 99 04/25/16 22:03 128 111/56 04/25/16 22:00 111/61 04/25/16 20:00 107 04/25/16 20:00 97.5 72 18 111/61 98 Room Air General Appearance: WD/WN, no apparent distress, alert EENT: PERRL/EOMI Neck: no JVD Rhythm: Afib Cardiovascular: no gallop/murmur, tachycardia Respiratory/Chest: lungs clear - clear anteriorly Abdomen: non tender, soft Extremities: no swelling Neurologic: other - R UE, R LE weakness Intake and Output 04/25/16 04/26/16 19:00 07:00 Intake Total 1019.7 ml Output Total 350 ml 200 ml Balance 669.7 ml -200 ml Intake Oral 240 ml IV Total 779.7 ml Output Urine Total 350 ml 200 ml # Bowel Movements 1 Laboratory Tests Test 04/26/16 06:05 White Blood Count 6.6 K/UL (4.8-10.8) Red Blood Count 3.52 M/UL (4.70-6.10) L Hemoglobin 10.2 G/DL (14.2-18.0) L Hematocrit 32.0 % (42.0-52.0) L Mean Corpuscular Volume 91 FL (80-99) Mean Corpuscular Hemoglobin 29.0 PG (27.0-31.0) Mean Corpuscular Hemoglobin Concent 31.8 G/DL (32.0-36.0) L Red Cell Distribution Width 15.6 % (11.6-14.8) H Platelet Count 180 K/UL (150-450) Mean Platelet Volume 7.0 FL (6.5-10.1) Neutrophils (%) (Auto) 49.2 % (45.0-75.0) Lymphocytes (%) (Auto) 29.9 % (20.0-45.0) Monocytes (%) (Auto) 11.2 % (1.0-10.0) H Eosinophils (%) (Auto) 8.7 % (0.0-3.0) H Basophils (%) (Auto) 1.1 % (0.0-2.0) Prothrombin Time 30.4 SEC (9.30-11.50) H Prothromb Time International Ratio 2.9 (0.9-1.1) H Sodium Level 139 mEQ/L (135-145) Potassium Level 4.2 mEQ/L (3.4-4.9) Chloride Level 101 mEQ/L (98-107) Carbon Dioxide Level 20 mEQ/L (20-30) Anion Gap 18 (5-15) H Blood Urea Nitrogen 37 mg/dL (7-23) H Creatinine 3.2 mg/dL (0.7-1.2) H Estimat Glomerular Filtration Rate mL/min (>60) Glucose Level 96 mg/dL (74-106) Calcium Level 8.6 mg/dL (8.6-10.2) Microbiology Date/Time Source Procedure Growth Status 04/24/16 19:55 Sputum Gram Stain - Final Resulted 04/24/16 19:55 Sputum Sputum Culture - Preliminary NORMAL SHARYN PRESENT Resulted DESIREE ROMERO Apr 26, 2016 19:27
--- NOTE | 2016-04-26 19:57 | Progress Note ---
DATE: 04/26/2016 SUBJECTIVE: The patient's mental condition is unchanged. Question at bedside. The patient is calm and compliant with medications. Cooperative. No behavior issues. He is however presenting with impairment cognition due to vascular dementia. Sleep and appetite is adequate. MENTAL STATUS EXAMINATION: Oriented to time and person. Mood is neutral. Affect is constricted. Congruent mood. Thought process is concrete. Thought content, there is no suicidal or homicidal ideation. Cognition is impaired. ASSESSMENT: Dementia, vascular type. PLAN: 1. The patient will be continued on current medication. 2. Provide the patient with reality orientation and supportive therapy. Rufus Velasquez M.D. DR: KARINA JOB#: [id number] CC:
[2016-04-26 20:00] VITALS: BP 110/59
[2016-04-26] MEDS: Tamsulosin 0.4mg cap ORAL SCH (20:58)
[2016-04-27] VITALS: BP 114/72
[2016-04-27 04:00] VITALS: BP 123/73
[2016-04-27] MEDS: HydrALAZINE 25mg tab ORAL SCH (06:00)
[2016-04-27] MEDS: Metoprolol 50mg tab ORAL SCH (06:41)
--- NOTE | 2016-04-27 07:50 | General Progress Note ---
Assessment/Plan Status: stable Assessment/Plan 1. Seizure disorders, recurrent episode. 2. 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 3. Abnormal MRI finding-suggestive of small sub acute CVA 3. Atrial fibrillation, ventricular rate controlled 4. Cardiomyopathy with ejection fraction less than 20. 5. Chronic kidney disease at baseline with a creatinine level of 2, serum potassium 5. 6. Hyperkalemia. 7. Dementia. 8. Gastrointestinal and deep vein thrombosis prophylaxis. Plan: Medically stable. followup as an outpatient ok to dc to [facility] Subjective ROS Limited/Unobtainable: Yes Allergies: Coded Allergies: MARYANA INHIBITORS (Unverified Allergy, Unknown, 01/31/14) ARB-ANGIOTENSIN RECEPTOR ANTAGONIST (Unverified Allergy, Unknown, 01/31/14) Objective Last 24 Hour Vital Signs Date Time Temp Pulse Resp B/P Pulse Ox O2 Delivery O2 Flow Rate FiO2 04/27/16 06:41 66 123/73 04/27/16 06:39 123/73 04/27/16 04:00 97.7 66 20 123/73 98 Room Air 04/27/16 00:00 116 04/27/16 00:00 97.7 60 20 114/72 97 Room Air 04/26/16 21:46 76 110/59 04/26/16 21:46 110/59 04/26/16 21:46 110/59 04/26/16 20:00 97 04/26/16 20:00 98.0 76 19 110/59 99 Room Air 04/26/16 16:00 106 04/26/16 16:00 97.9 75 20 127/80 98 Room Air 04/26/16 13:53 84 116/72 04/26/16 13:53 116/72 04/26/16 13:53 116/72 04/26/16 12:00 112 04/26/16 12:00 98.1 84 18 116/72 98 Room Air 04/26/16 08:34 86 116/62 04/26/16 08:34 86 04/26/16 08:00 97.3 86 18 116/62 97 Room Air 04/26/16 08:00 100 Intake and Output 04/26/16 04/27/16 19:00 07:00 Intake Total 110 ml Output Total 700 ml Balance 110 ml -700 ml IV Total 110 ml Output Urine Total 700 ml # Voids 1 Height (Feet): 6 Height (Inches): 0.00 Weight (Pounds): 220 General Appearance: no apparent distress EENT: PERRL/EOMI Neck: supple Cardiovascular: normal rate Respiratory/Chest: lungs clear Abdomen: soft Extremities: non-tender, other - right sandhya Plegia Neurologic: disoriented - slurred speech at his base line Ondina Geiger MD Apr 27, 2016 07:50
[2016-04-27 08:00] VITALS: BP 114/85
[2016-04-27 08:17] LABS: INR 2.7 (0.9-1.1); PROTHROMBIN TIME 28.6 SEC (9.30-11.50)
[2016-04-27] MEDS: Digoxin 0.125mg tab ORAL SCH (09:33)
[2016-04-27] MEDS: Depakote 125mg Sprinkles ORAL SCH (09:33)
[2016-04-27 09:34] VITALS: BP 114/85
[2016-04-27] MEDS: Diltiazem CD 240mg cap ORAL SCH (09:34)
--- NOTE | 2016-04-27 10:40 | Infectious Diseases Prog Note ---
Assessment/Plan Assessment/Plan ASSESSMENT: 80 y/o male with: // Chronic cough ? Asp Pna ?PND ?asthma ?allergic Scx : not sent - CXR 04/18: Mild central interstitial prominence, calcified granuloma in the left base. No interval change from 04/16/16. 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 - h/o ICMO, trop(-) x1, BNP 1796 - TTE 05/2014: EF 35-40%, grade I diastolic dysfunction, mod MR, TR, pulmonary HTN // Vascular dementia, h/o CVA MRI : acute infarct involving a small focus of viable brain tissue within the old infarct // ARF on CKD3 // Seizure disorder // A-fib // h/o MRSA colonization // Previous DNR PLAN: - Monitor pt off of AB Rx ( 04/25 azithromycin, Zosyn d# 7 / 7 ) ( SP cefepime d# 5 ) ( 04/13 SP IV vancomycin d# 2 ) - monitor CBC, temperatures - monitor BMP - monitor CXR Subjective Constitutional: Denies: anorexia, chills, drenching sweats, fatigue, fever, no symptoms, other Allergies: Coded Allergies: MARYANA INHIBITORS (Unverified Allergy, Unknown, 01/31/14) ARB-ANGIOTENSIN RECEPTOR ANTAGONIST (Unverified Allergy, Unknown, 01/31/14) Objective Vital Signs Last 24 Hour Vital Signs Date Time Temp Pulse Resp B/P Pulse Ox O2 Delivery O2 Flow Rate FiO2 04/27/16 09:34 104 114/85 04/27/16 09:33 104 04/27/16 08:00 97.1 104 18 114/85 99 Room Air 04/27/16 06:41 66 123/73 04/27/16 06:39 123/73 04/27/16 04:00 135 04/27/16 04:00 97.7 66 20 123/73 98 Room Air 04/27/16 00:00 116 04/27/16 00:00 97.7 60 20 114/72 97 Room Air 04/26/16 21:46 76 110/59 04/26/16 21:46 110/59 04/26/16 21:46 110/59 04/26/16 20:00 97 04/26/16 20:00 98.0 76 19 110/59 99 Room Air 04/26/16 16:00 106 04/26/16 16:00 97.9 75 20 127/80 98 Room Air 04/26/16 13:53 84 116/72 04/26/16 13:53 116/72 04/26/16 13:53 116/72 04/26/16 12:00 112 04/26/16 12:00 98.1 84 18 116/72 98 Room Air Height (Feet): 6 Height (Inches): 0.00 Weight (Pounds): 220 HEENT: atraumatic Respiratory/Chest: lungs clear Cardiovascular: normal rate Abdomen: soft, non tender, no organomegaly Microbiology Date/Time Source Procedure Growth Status 04/24/16 19:55 Sputum Gram Stain - Final Complete 04/24/16 19:55 Sputum Sputum Culture - Final NORMAL UPPER RESPIRATORY SHARYN PRESENT Complete Laboratory Tests Test 04/27/16 06:40 Prothrombin Time 28.6 SEC (9.30-11.50) H Prothromb Time International Ratio 2.7 (0.9-1.1) H Digoxin Level Pending Current Medications Medications (Trade) Dose Ordered Sig/Con Route PRN Reason Start Time Stop Time Status Last Admin Dose Admin Digoxin (Lanoxin) 0.125 mg DAILY ORAL 04/19/16 09:00 05/19/16 08:59 04/27/16 09:33 Diltiazem HCl (Cardizem CD) 240 mg DAILY ORAL 04/23/16 09:00 05/23/16 08:59 04/27/16 09:34 Divalproex Sodium (Depakote Sprinkles) 125 mg EVERY 12 HOURS ORAL 04/20/16 21:00 05/20/16 20:59 04/27/16 09:33 Gabapentin (Neurontin) 200 mg TIDPRN PRN ORAL Pain Scale (6-10) 04/24/16 19:30 05/24/16 19:29 Hydralazine HCl (Apresoline) 25 mg Q8HR ORAL 04/18/16 22:00 05/18/16 21:59 04/26/16 13:53 Isosorbide Dinitrate (Isordil) 10 mg Q8HR ORAL 04/18/16 22:00 05/18/16 21:59 04/27/16 06:39 Levetiracetam (Keppra) 1,500 mg Q12HR ORAL 04/26/16 21:00 05/26/16 20:59 04/27/16 09:32 Levothyroxine Sodium (Synthroid) 75 mcg DAILY@0630 ORAL 04/19/16 06:30 05/19/16 06:29 04/27/16 06:40 Metoprolol Tartrate (Lopressor) 50 mg Q8HR ORAL 04/24/16 08:30 05/24/16 08:29 04/27/16 06:41 Tamsulosin HCl (Flomax) 0.4 mg BEDTIME ORAL 04/18/16 21:00 05/18/16 20:59 04/26/16 20:58 Warfarin Sodium (Coumadin per pharmacy) 1 ea DAILY PRN MISC . 04/22/16 08:30 05/19/16 16:59 Warfarin Sodium (Coumadin) 1 mg COUMADIN ONCE ORAL 04/27/16 17:00 04/27/16 17:01 LICHA SCHERER M.D. Apr 27, 2016 10:40
[2016-04-27] MEDS ORDERED: DIGOXIN125 MCG ORAL (11:21)
[2016-04-27] MEDS ORDERED: DIVALPROEX SOD125 MG PO (11:22)
[2016-04-27] MEDS ORDERED: DILTIAZEM 24HR240 MG PO (11:22)
[2016-04-27] MEDS ORDERED: HYDRALAZINE HCL25 M2 PO (11:23)
[2016-04-27] MEDS ORDERED: ISOSORBIDE DINI10 MG ORAL (11:23)
[2016-04-27] MEDS ORDERED: LEVETIRACETAM500 MG ORAL (11:24)
[2016-04-27] MEDS ORDERED: LEVOTHYROXINE75 MCG ORAL (11:25)
[2016-04-27] MEDS ORDERED: METOPROLOL TART50 M1 ORAL (11:26)
[2016-04-27] MEDS ORDERED: TAMSULOSIN HCL0.4 MG ORAL (11:27)
[2016-04-27] MEDS ORDERED: WARFARIN SODIUM1 MG ORAL (11:42)
--- NOTE | 2016-04-27 13:16 | Pulmonology Progress Note ---
Assessment/Plan Problems: (1) Atrial fibrillation with RVR (2) Seizure disorder (3) Pneumonia (4) Arrhythmia (5) Dementia, vascular (6) CKD (chronic kidney disease) (7) Vascular dementia with behavior disturbance (8) CVA (cerebral infarction) (9) Cardiomyopathy Assessment/Plan feeling better HR better controlled getting oral meds, d/w at bed side extensively INR therapeutic on Dig, cardizem and metoprolol, dose was increased may go to med/surg Subjective ROS Limited/Unobtainable: No Interval Events: no new complains Allergies: Coded Allergies: MARYANA INHIBITORS (Unverified Allergy, Unknown, 01/31/14) ARB-ANGIOTENSIN RECEPTOR ANTAGONIST (Unverified Allergy, Unknown, 01/31/14) Objective Last 24 Hour Vital Signs Date Time Temp Pulse Resp B/P Pulse Ox O2 Delivery O2 Flow Rate FiO2 04/27/16 09:34 104 114/85 04/27/16 09:33 104 04/27/16 08:00 97.1 104 18 114/85 99 Room Air 04/27/16 08:00 151 04/27/16 06:41 66 123/73 04/27/16 06:39 123/73 04/27/16 04:00 135 04/27/16 04:00 97.7 66 20 123/73 98 Room Air 04/27/16 00:00 116 04/27/16 00:00 97.7 60 20 114/72 97 Room Air 04/26/16 21:46 76 110/59 04/26/16 21:46 110/59 04/26/16 21:46 110/59 04/26/16 20:00 97 04/26/16 20:00 98.0 76 19 110/59 99 Room Air 04/26/16 16:00 106 04/26/16 16:00 97.9 75 20 127/80 98 Room Air 04/26/16 13:53 84 116/72 04/26/16 13:53 116/72 04/26/16 13:53 116/72 Intake and Output 04/26/16 04/27/16 19:00 07:00 Intake Total 110 ml Output Total 700 ml Balance 110 ml -700 ml IV Total 110 ml Output Urine Total 700 ml # Voids 1 General Appearance: WD/WN HEENT: normocephalic, atraumatic Respiratory/Chest: chest wall non-tender, lungs clear Cardiovascular: normal peripheral pulses, normal rate Abdomen: normal bowel sounds, soft, non tender Genitourinary: normal external genitalia Skin: no rash Microbiology Date/Time Source Procedure Growth Status 04/24/16 19:55 Sputum Gram Stain - Final Complete 04/24/16 19:55 Sputum Sputum Culture - Final NORMAL UPPER RESPIRATORY SHARYN PRESENT Complete Laboratory Tests 04/27/16 06:40: Prothrombin Time 28.6H, Prothromb Time International Ratio 2.7H, Digoxin Level [ Pending] Current Medications Medications (Trade) Dose Ordered Sig/Con Route PRN Reason Start Time Stop Time Status Last Admin Dose Admin Digoxin (Lanoxin) 0.125 mg DAILY ORAL 04/19/16 09:00 05/19/16 08:59 04/27/16 09:33 Diltiazem HCl (Cardizem CD) 240 mg DAILY ORAL 04/23/16 09:00 05/23/16 08:59 04/27/16 09:34 Divalproex Sodium (Depakote Sprinkles) 125 mg EVERY 12 HOURS ORAL 04/20/16 21:00 05/20/16 20:59 04/27/16 09:33 Gabapentin (Neurontin) 200 mg TIDPRN PRN ORAL Pain Scale (6-10) 04/24/16 19:30 05/24/16 19:29 Hydralazine HCl (Apresoline) 25 mg Q8HR ORAL 04/18/16 22:00 05/18/16 21:59 04/26/16 13:53 Isosorbide Dinitrate (Isordil) 10 mg Q8HR ORAL 04/18/16 22:00 05/18/16 21:59 04/27/16 06:39 Levetiracetam (Keppra) 1,500 mg Q12HR ORAL 04/26/16 21:00 05/26/16 20:59 04/27/16 09:32 Levothyroxine Sodium (Synthroid) 75 mcg DAILY@0630 ORAL 04/19/16 06:30 05/19/16 06:29 04/27/16 06:40 Metoprolol Tartrate (Lopressor) 50 mg Q8HR ORAL 04/24/16 08:30 05/24/16 08:29 04/27/16 06:41 Tamsulosin HCl (Flomax) 0.4 mg BEDTIME ORAL 04/18/16 21:00 05/18/16 20:59 04/26/16 20:58 Warfarin Sodium (Coumadin per pharmacy) 1 ea DAILY PRN MISC . 04/22/16 08:30 05/19/16 16:59 Warfarin Sodium (Coumadin) 1 mg COUMADIN ONCE ORAL 04/27/16 17:00 04/27/16 17:01 CAROLINA RENAE Apr 27, 2016 13:16
[2016-04-27] MEDS ORDERED: Warfarin Sodium 1mg ORAL ONE (17:00)
--- NOTE | 2016-04-27 21:57 | Electroencephalogram ---
DATE OF PROCEDURE: 04/21/2016 ELECTROENCEPHALOGRAPHY REPORT: REQUESTING PHYSICIAN: Ondina Geiger M.D. PROCEDURE PERFORMED: Electroencephalography. HISTORY: This is a 80 years old man with old strokes and chronic seizure disorder, previous ischemic stroke, left MCA distribution, current treatment include Depakote, Keppra, and Zyprexa. During the recording, the patient was described as awake, drowsy or asleep, but fairly cooperative. TECHNIQUE: EEG was done using 18 electrodes, placed scalp to scalp, scalp to ear montages according to 10/20 International System. MOST WAKEFUL PORTIONS OF RECORDING, BACKGROUND ACTIVITY CONSISTS OF [id number] VOLTAGE, WELL REGULATED, 8 CYCLES PER SECOND, THETA ACTIVITIES, REDUCED AMPLITUDE OVER THE LEFT HEMISPHERE: reduced amplitude but in the left hemisphere, photic stimulation from 3 to 33 Hertz was done, result, no significant changes: throughout the recording, there was no evidence of spike and wave activities. Further attenuation of background noted corresponding to sleep stages, there was further disorganization and weak and slowing in the theta range. IMPRESSION: Abnormal EEG in presence of generalized diffuse slowing with reduction amplitude over the left hemisphere. COMMENT: Above abnormality indicate a global cerebral dysfunction, mild but reduction in amplitude and left hemispheric corresponding to history of old left middle cerebral artery distribution stroke thus indicating underlying structural lesion. Absence of paroxysmal event on a single recording does not rule out seizure disorder. Jose Blunt M.D. DR: Autumn JOB#: [id number] CC:
--- NOTE | 2016-04-28 20:37 | Discharge Summary ---
Discharge Summary Hospital Course Date of Admission Apr 18, 2016 at 14:22 Date of Discharge Apr 27, 2016 at 13:45 Admitting Diagnosis Seizure, AFIB with RVR, Pnuemonia HPI Birthjuarez Ybarra is a 80 year old male who was admitted on Apr 18, 2016 at 14: 22 for Seizure,Afib With Rvr,Pneumonia Hospital Course [id number] Discharge Discharge Disposition Patient was discharged to [facility] (04) Discharge Diagnoses: Cecy Marin NP Apr 28, 2016 20:37
--- NOTE | 2016-04-29 06:48 | Discharge Summary 2 SIG ---
DATE OF ADMISSION: 04/18/2016 DATE OF DISCHARGE: 04/27/2016 CONSULTANTS: 1. Brenda Gomez M.D. 2. Jose Blunt M.D. 3. Rafael Argueta M.D. 4. Rufus Velasquez M.D. BRIEF HOSPITAL COURSE: The patient is a pleasant 80-year-old male with known history of CVA and atrial fibrillation, who was recently discharged from hospital with diagnosis of healthcare-associated pneumonia. The patient was transferred back to continue onset of seizure disorder and weakness described as tremors on the right side. On evaluation at ED, CAT scan of the brain was negative for any acute pathology. Chest x-ray was negative for interval changes. He was admitted to telemetry. Dr. Blunt was consulted. Keppra was increased to 1500 mg b.i.d. The patient had a described partial complex seizure activities prior to admission. He was also given Depakote 125 mg b.i.d. and Zyprexa q.h.s. Brain MRI was done and showed extremely limited exam with a focus of restriction within the area of previous infarct. EEG done showed abnormal results in presence of generalized diffuse slowing with reduction of amplitude over the left hemisphere. Dr. Gomez was consulted. The patient has atrial fibrillation with rapid ventricular response. The patient has been on digoxin, metoprolol, and diltiazem, however, has been refusing po medications. He was given IV diltiazem and metoprolol. He eventually agreed to take p.o. medications. He was continued on anticoagulation. Diltiazem was continued and was changed to long acting once daily dose for compliance reasons. He had an episode of supratherapeutic INR. Coumadin was adjusted. Dr. Argueta was consulted for possible aspiration pneumonia, low-grade fever and was started on IV Zosyn. Influenza and Legionella urine antigen were negative. He was given azithromycin and Zosyn. Sputum culture was not sent. He was taken off antibiotic treatments after receiving 7-day dose of azithromycin and Zosyn. Dr. Velasquez was also consulted. The patient was confused, disoriented and has poor insight and judgment into his medical condition. He was diagnosed with dementia vascular type. He was taken off antibiotics and was discharged back to [facility] to follow up as an outpatient. FINAL DIAGNOSES: 1. Seizure disorder recurrent episode. 2. Cerebrovascular accident with right-sided hemiplegia at baseline. 3. Abnormal MRI findings suggestive of small subacute cerebrovascular accident. 4. Atrial fibrillation with rapid ventricular response. 5. Cardiomyopathy with ejection fraction less than 20. 6. Chronic kidney disease. 7. Hyperkalemia. 8. Dementia. 9. Acute renal failure on chronic kidney disease stage 3. 10. Vascular dementia. 11. Left middle cerebral artery subacute stroke. Ondina Geiger M.D. I have been assigned to dictate discharge summary on this account and I was not involved in the patient's management. Cecy Marin N.P. DR: DANISH JOB#: [id number] CC: HÉCTOR
== END 2016-04-27 13:45 | DRG 100 ==
LOC: EDBD 10:23 → EMR 10:50 → EDBEDREQ 11:48 → EDBEDREQSVC 12:10 → EDBEDREQ 12:56 → 2E 14:22 → EDBEDREQ 17:52
DX: G40.209 Localization-related (focal) (partial) symptomatic epilepsy and epileptic syndromes with complex partial seizures, not intractable, without status epilepticus (principal); I63.9 Cerebral infarction, unspecified; J69.0 Pneumonitis due to inhalation of food and vomit; I50.43 Acute on chronic combined systolic (congestive) and diastolic (congestive) heart failure; N17.9 Acute kidney failure, unspecified; I42.9 Cardiomyopathy, unspecified; I69.351 Hemiplegia and hemiparesis following cerebral infarction affecting right dominant side; F01.51 Vascular dementia, unspecified severity, with behavioral disturbance; I48.2 Chronic atrial fibrillation; E87.5 Hyperkalemia; I12.9 Hypertensive chronic kidney disease with stage 1 through stage 4 chronic kidney disease, or unspecified chronic kidney disease; N18.9 Chronic kidney disease, unspecified; N18.3 Chronic kidney disease, stage 3 (moderate); Z66 Do not resuscitate; I27.2 Other secondary pulmonary hypertension; I34.0 Nonrheumatic mitral (valve) insufficiency; I36.1 Nonrheumatic tricuspid (valve) insufficiency; Z91.14 Patient's other noncompliance with medication regimen; Z79.01 Long term (current) use of anticoagulants; E11.9 Type 2 diabetes mellitus without complications; Z79.84 Long term (current) use of oral hypoglycemic drugs
CPT/HCPCS: 36415; 70450; 70551; 71010; 80048; 80053; 80162; 80299; 81003; 82962; 83605; 84484; 85025; 85610; 85730; 87040; 87070; 87081; 87086; 87205; 93005; 95819

== ENCOUNTER 2016-05-24 16:07 | Inpatient (IN) | payer MEDICARE, MEDICAID ==
[~2016-05-24] VITALS: Ht 177.8 cm; Wt 86.2 kg
[~2016-05-24 16:07] MED LIST changes: +CARDIZEM60 MG ORAL; +DIGOXIN125 MCG ORAL; +DILTIAZEM 24HR240 MG PO; +DIVALPROEX SOD125 MG PO; +DUONEB 0.5-3(2.53 ML HHN; +HYDRALAZINE HCL25 M1 ORAL; +HYDRALAZINE HCL25 M2 PO; +ISOSORBIDE DINI10 MG ORAL; +ISOSORBIDE DINIT5 MG ORAL; +LEVETIRACETAM500 MG ORAL; +LEVOTHYROXINE75 MCG ORAL; +METOPROLOL TART50 M1 ORAL; +METOPROLOL TART50 MG ORAL; +MIRALAX17 GM ORAL; +NITROGLYCERIN0.4 MG SL; +PROMETHAZINE-C118 M1 ORAL; +TAMSULOSIN HCL0.4 MG ORAL; +TEMAZEPAM30 MG ORAL; +TYLENOL650 MG/20. ORAL; +WARFARIN SODIUM1 MG ORAL; +ZOFRAN4 M3 ORAL
[2016-05-24 16:50] VITALS: BP 116/86
[2016-05-24 17:24] LABS: BASOPHILS % (AUTO) 1.1 % (0.0-2.0); EOSINOPHILS % (AUTO) 5.4 % (0.0-3.0); LYMPHOCYTES % (AUTO) 19.8 % (20.0-45.0); MEAN CORPUSCULAR HEMOGLOBIN 27.9 PG (27.0-31.0); MEAN CORPUSCULAR HGB CONC 31.1 G/DL (32.0-36.0); MEAN CORPUSCULAR VOLUME 90 FL (80-99); MEAN PLATELET VOLUME 6.7 FL (6.5-10.1); NEUTROPHILS % (AUTO) 59.8 % (45.0-75.0); PLATELET COUNT 142 K/UL (150-450); RED BLOOD COUNT 2.95 M/UL (4.70-6.10); RED CELL DISTRIBUTION WIDTH 16.2 % (11.6-14.8); WHITE BLOOD COUNT 5.4 K/UL (4.8-10.8)
[2016-05-24 17:49] LABS: TROPONIN I < 0.30 ng/mL (<=0.30)
[2016-05-24 17:50] LABS: INR 3.6 (0.9-1.1); PROTHROMBIN TIME 38.2 SEC (9.30-11.50)
[2016-05-24 17:53] LABS: ALANINE AMINOTRANSFERASE 10 U/L (3-41); ANION GAP 15 (5-15); ASPARTATE AMINO TRANSFERASE 14 U/L (5-40); CALCIUM 8.4 mg/dL (8.6-10.2); CARBON DIOXIDE 22 mEQ/L (20-30); CHLORIDE 107 mEQ/L (98-107); CREATININE 1.9 mg/dL (0.7-1.2); HEMOLYSIS 7; POTASSIUM 4.1 mEQ/L (3.4-4.9); SODIUM 144 mEQ/L (135-145); TOTAL PROTEIN 6.4 g/dL (6.6-8.7)
--- NOTE | 2016-05-24 18:16 | Emergency Room Report ---
History of Present Illness General Chief Complaint: Abnormal Labs Source: Patient, Medical Record Present Illness HPI Patient was sent in from nursing facility with complaints of low hemoglobin Patient has a history of atrial fibrillation and is on anticoagulation Patient himself is a poor historian This does limit the history of present illness significantly There are no Reports of vomiting diarrhea No reports of any blood with bowel movements or urination Allergies: Coded Allergies: MARYANA INHIBITORS (Unverified Allergy, Unknown, 01/31/14) ARB-ANGIOTENSIN RECEPTOR ANTAGONIST (Unverified Allergy, Unknown, 01/31/14) Uncoded Allergies: ARB RECEPTOR ANTAGONIST (Allergy, Unknown, 05/24/16) Patient History Past Medical History: see triage record Pertinent Family History: none Reviewed Nursing Documentation: PMH: Agreed, PSxH: Agreed Nursing Documentation-PMH Hx Cardiac Problems: Yes - hear failure; a-fib Hx Hypertension: Yes 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 Hx COPD: Yes Hx Diabetes: No - hypothyroidism Hx Cancer: No Hx Gastrointestinal Problems: No Hx Dialysis: No - CKD Hx Neurological Problems: Yes - Encephalapathy Hx Cerebrovascular Accident: Yes Hx Dementia: Yes Hx Seizures: Yes Hx Weakness: Yes Review of Systems All Other Systems: limited - Other than the ones mentioned in the history of present illness all others are reviewed however they do stay limited due to the patient's mental status Physical Exam Vital Signs Date Time Temp Pulse Resp B/P Pulse Ox O2 Delivery O2 Flow Rate FiO2 05/24/16 16:02 98.2 85 18 138/72 95 Room Air Sp02 EP Interpretation: reviewed, normal General Appearance: no apparent distress Head: normocephalic, atraumatic Eyes: bilateral eye PERRL ENT: no angioedema, dry mucus membranes Neck: supple, thyroid normal Respiratory: crackles - Diffusely Cardiovascular #1: no edema, irregularly irregular Gastrointestinal: soft, no mass Musculoskeletal: normal inspection Neurologic: normal inspection Skin: no rash, warm/dry Lymphatic: no adenopathy Medical Decision Making Diagnostic Impression: Primary Impression: Symptomatic anemia Additional Impression: Coagulopathy ER Course Patient is a fairly complex patient with multiple differential to consideration including but not limited to cardiac cardiopulmonary and vascular emergencies Patient's hemoglobin is 8.2 Last month it was at 10 Patient is also on anticoagulation with an INR of 3.6 Hemoccult studies were negative however given the increased drop in hemoglobin and the patient's presentation he was admitted for further inpatient eval Patient does not meet criteria for the emergency transfusion Labs Test 05/24/16 17:05 White Blood Count 5.4 K/UL (4.8-10.8) Red Blood Count 2.95 M/UL (4.70-6.10) Hemoglobin 8.2 G/DL (14.2-18.0) Hematocrit 26.5 % (42.0-52.0) Mean Corpuscular Volume 90 FL (80-99) Mean Corpuscular Hemoglobin 27.9 PG (27.0-31.0) Mean Corpuscular Hemoglobin Concent 31.1 G/DL (32.0-36.0) Red Cell Distribution Width 16.2 % (11.6-14.8) Platelet Count 142 K/UL (150-450) Mean Platelet Volume 6.7 FL (6.5-10.1) Neutrophils (%) (Auto) 59.8 % (45.0-75.0) Lymphocytes (%) (Auto) 19.8 % (20.0-45.0) Monocytes (%) (Auto) 14.0 % (1.0-10.0) Eosinophils (%) (Auto) 5.4 % (0.0-3.0) Basophils (%) (Auto) 1.1 % (0.0-2.0) Prothrombin Time 38.2 SEC (9.30-11.50) Prothromb Time International Ratio 3.6 (0.9-1.1) Activated Partial Thromboplast Time 54 SEC (23-33) Sodium Level 144 mEQ/L (135-145) Potassium Level 4.1 mEQ/L (3.4-4.9) Chloride Level 107 mEQ/L (98-107) Carbon Dioxide Level 22 mEQ/L (20-30) Anion Gap 15 (5-15) Blood Urea Nitrogen 20 mg/dL (7-23) Creatinine 1.9 mg/dL (0.7-1.2) Estimat Glomerular Filtration Rate mL/min (>60) Glucose Level 106 mg/dL (74-106) Calcium Level 8.4 mg/dL (8.6-10.2) Total Bilirubin 0.5 mg/dL (0.0-1.2) Aspartate Amino Transf (AST/SGOT) 14 U/L (5-40) Alanine Aminotransferase (ALT/SGPT) 10 U/L (3-41) Alkaline Phosphatase 62 U/L (40-129) Total Creatine Kinase 127 U/L (38-174) Creatine Kinase MB 2.0 ng/mL (< 6.7) Creatine Kinase MB Relative Index 1.5 Troponin I < 0.30 ng/mL (<=0.30) Total Protein 6.4 g/dL (6.6-8.7) Albumin 3.2 g/dL (3.5-5.2) Globulin 3.2 g/dL Albumin/Globulin Ratio 1.0 (1.0-2.7) EKG Diagnostic Results Rate: normal Rhythm: other - Atrial fibrillation ST Segments: no acute changes Rhythm Strip Diag. Results EP Interpretation: yes Rate: 67 Rhythm: no PVC's, no ectopy, other - atrial fibrilation Chest X-Ray Diagnostic Results EP Interpretation: Yes Findings: no consolidation, no effusion, no pneumothorax, other - Appearance of pulmonary congestion however similar to previous, Number of Views: 1 Last Vital Signs Date Time Temp Pulse Resp B/P Pulse Ox O2 Delivery O2 Flow Rate FiO2 05/24/16 16:50 86 18 116/86 97 Room Air 05/24/16 16:02 98.2 Status: improved Disposition: ADMITTED INPATIENT Condition: Serious Referrals: Ondina Geiger MD (PCP) ELZBIETA JAIN D.O. May 24, 2016 18:16
[2016-05-24 19:18] VITALS: BP 129/77
[2016-05-24] MEDS ORDERED: ROBITUSSIN COU118 M4 PO (21:04)
[2016-05-24] MEDS ORDERED: ALBUTEROL2.5 MG/3 M INH (21:04)
[2016-05-24] MEDS ORDERED: traMADol 50mg tab ORAL PRN (21:30)
[2016-05-24] MEDS ORDERED: guaiFENesin DM 100mg/5ml ORAL PRN (21:30)
[2016-05-24] MEDS ORDERED: Albuterol ud Inhalation HHN PRN (21:30)
[2016-05-24] MEDS ORDERED: Tamsulosin 0.4mg cap ORAL SCH (22:30)
[2016-05-24] MEDS: HydrALAZINE 25mg tab ORAL SCH (22:30)
[2016-05-25] VITALS: BP 153/84
[2016-05-25 04:00] VITALS: BP 149/83
[2016-05-25 04:44] LABS: EOSINOPHILS % (AUTO) 5.8 % (0.0-3.0); LYMPHOCYTES % (AUTO) 21.4 % (20.0-45.0); MEAN CORPUSCULAR HEMOGLOBIN 28.4 PG (27.0-31.0); MEAN CORPUSCULAR HGB CONC 31.8 G/DL (32.0-36.0); MEAN CORPUSCULAR VOLUME 89 FL (80-99); MEAN PLATELET VOLUME 7.1 FL (6.5-10.1); MONOCYTES % (AUTO) 13.5 % (1.0-10.0); NEUTROPHILS % (AUTO) 58.2 % (45.0-75.0); PLATELET COUNT 154 K/UL (150-450); RED BLOOD COUNT 3.05 M/UL (4.70-6.10); RED CELL DISTRIBUTION WIDTH 16.8 % (11.6-14.8)
[2016-05-25 04:56] LABS: INR 3.6 (0.9-1.1); PROTHROMBIN TIME 37.8 SEC (9.30-11.50)
[2016-05-25 05:49] LABS: ALANINE AMINOTRANSFERASE 9 U/L (3-41); ANION GAP 17 (5-15); ASPARTATE AMINO TRANSFERASE 15 U/L (5-40); CALCIUM 8.6 mg/dL (8.6-10.2); CARBON DIOXIDE 20 mEQ/L (20-30); CHLORIDE 107 mEQ/L (98-107); CREATININE 1.8 mg/dL (0.7-1.2); HEMOLYSIS 1; SODIUM 144 mEQ/L (135-145); TOTAL PROTEIN 6.7 g/dL (6.6-8.7)
[2016-05-25] MEDS: HydrALAZINE 25mg tab ORAL SCH ×3 (05:55→21:33)
--- NOTE | 2016-05-25 08:13 | History & Physical ---
History and Physical History & Physicial Dictation completed Ondina Geiger MD May 25, 2016 08:13
[2016-05-25 08:15] VITALS: BP 141/81
--- NOTE | 2016-05-25 08:17 | General Progress Note ---
Assessment/Plan Status: stable Assessment/Plan 1- Acute Anemia 2- CM with low EF 3- Dementia 4- Afib 5- Hypercoagulation 6- CVA-right sandhya-pelgia Plan: 2 unit Type and cross hold for transfusion Cardiology to optimize medication Subjective ROS Limited/Unobtainable: Yes - patient demented at baseline Allergies: Coded Allergies: MARYANA INHIBITORS (Unverified Allergy, Unknown, 01/31/14) ARB-ANGIOTENSIN RECEPTOR ANTAGONIST (Unverified Allergy, Unknown, 01/31/14) Uncoded Allergies: ARB RECEPTOR ANTAGONIST (Allergy, Unknown, 05/24/16) Objective Last 24 Hour Vital Signs Date Time Temp Pulse Resp B/P Pulse Ox O2 Delivery O2 Flow Rate FiO2 05/25/16 05:55 149/83 05/25/16 04:00 97.7 90 20 149/83 95 Room Air 05/25/16 00:00 97.7 86 20 153/84 98 Room Air 05/24/16 19:26 98.2 109 18 129/77 97 Room Air 05/24/16 19:18 109 18 129/77 97 Room Air 05/24/16 16:50 86 18 116/86 97 Room Air 05/24/16 16:02 98.2 85 18 138/72 95 Room Air Intake and Output 05/24/16 05/25/16 19:00 07:00 Intake Total 0 ml 240 ml Output Total 500 ml Balance 0 ml -260 ml Intake Oral 0 ml 240 ml Output Urine Total 500 ml # Voids 1 Laboratory Tests 05/24/16 17:05: White Blood Count 5.4, Red Blood Count 2.95L, Hemoglobin 8.2L, Hematocrit 26.5L , Mean Corpuscular Volume 90, Mean Corpuscular Hemoglobin 27.9, Mean Corpuscular Hemoglobin Concent 31.1L, Red Cell Distribution Width 16.2H, Platelet Count 142L, Mean Platelet Volume 6.7, Neutrophils (%) (Auto) 59.8, Lymphocytes (%) (Auto) 19.8L, Monocytes (%) (Auto) 14.0H, Eosinophils (%) (Auto ) 5.4H, Basophils (%) (Auto) 1.1, Prothrombin Time 38.2H, Prothromb Time International Ratio 3.6H, Activated Partial Thromboplast Time 54H, Sodium Level 144, Potassium Level 4.1, Chloride Level 107, Carbon Dioxide Level 22, Anion Gap 15, Blood Urea Nitrogen 20, Creatinine 1.9H, Estimat Glomerular Filtration Rate , Glucose Level 106, Calcium Level 8.4L, Total Bilirubin 0.5, Aspartate Amino Transf (AST/SGOT) 14, Alanine Aminotransferase (ALT/SGPT) 10, Alkaline Phosphatase 62, Total Creatine Kinase 127, Creatine Kinase MB 2.0, Creatine Kinase MB Relative Index 1.5, Troponin I < 0.30, Total Protein 6.4L, Albumin 3.2L, Globulin 3.2, Albumin/Globulin Ratio 1.0 05/25/16 04:00: White Blood Count 5.0, Red Blood Count 3.05L, Hemoglobin 8.7L, Hematocrit 27.2L , Mean Corpuscular Volume 89, Mean Corpuscular Hemoglobin 28.4, Mean Corpuscular Hemoglobin Concent 31.8L, Red Cell Distribution Width 16.8H, Platelet Count 154, Mean Platelet Volume 7.1, Neutrophils (%) (Auto) 58.2, Lymphocytes (%) (Auto) 21.4, Monocytes (%) (Auto) 13.5H, Eosinophils (%) (Auto) 5.8H, Basophils (%) (Auto) 1.0, Prothrombin Time 37.8H, Prothromb Time International Ratio 3.6H, Sodium Level 144, Potassium Level 4.0, Chloride Level 107, Carbon Dioxide Level 20, Anion Gap 17H, Blood Urea Nitrogen 17, Creatinine 1.8H, Estimat Glomerular Filtration Rate , Glucose Level 90, Calcium Level 8.6, Total Bilirubin 0.5, Aspartate Amino Transf (AST/SGOT) 15, Alanine Aminotransferase (ALT/SGPT) 9, Alkaline Phosphatase 63, Total Protein 6.7, Albumin 3.4L, Globulin 3.3, Albumin/Globulin Ratio 1.0 Height (Feet): 5 Height (Inches): 10.00 Weight (Pounds): 190 General Appearance: no apparent distress EENT: PERRL/EOMI Neck: supple Cardiovascular: arrhythmia Respiratory/Chest: lungs clear Abdomen: soft Extremities: non-tender Neurologic: disoriented, other - right facial drooping at base line Ondina Geiger MD May 25, 2016 08:17
[2016-05-25] MEDS ORDERED: Diltiazem CD 240mg cap ORAL SCH (09:00)
[2016-05-25] MEDS ORDERED: Digoxin 0.125mg tab ORAL SCH (09:00)
[2016-05-25] MEDS ORDERED: Depakote 125mg Sprinkles ORAL SCH (09:00)
[2016-05-25 10:24] LABS: BASOPHILS % (AUTO) 0.9 % (0.0-2.0); EOSINOPHILS % (AUTO) 5.1 % (0.0-3.0); LYMPHOCYTES % (AUTO) 22.3 % (20.0-45.0); MEAN CORPUSCULAR HEMOGLOBIN 27.8 PG (27.0-31.0); MEAN CORPUSCULAR HGB CONC 31.4 G/DL (32.0-36.0); MEAN CORPUSCULAR VOLUME 88 FL (80-99); MEAN PLATELET VOLUME 5.9 FL (6.5-10.1); MONOCYTES % (AUTO) 14.2 % (1.0-10.0); NEUTROPHILS % (AUTO) 57.6 % (45.0-75.0); PLATELET COUNT 168 K/UL (150-450); RED BLOOD COUNT 3.11 M/UL (4.70-6.10); RED CELL DISTRIBUTION WIDTH 16.3 % (11.6-14.8)
--- NOTE | 2016-05-25 11:45 | Diagnostic Imaging Report ---
Indication: Chest Pain Comparison: 04/18/16 A single view chest radiograph was obtained. Findings: There is enlargement of the cardiac silhouette with pulmonary vascular redistribution and prominence, hazy vessel margins and the suggestion of interstitial edema consistent with CHF. Findings may be slightly worse compared to the previous examination. Impression: CHF
--- NOTE | 2016-05-25 11:48 | History and Physical Report ---
DATE OF ADMISSION: 05/24/2016 SOURCE OF INFORMATION: The patient and EMR. HISTORY OF PRESENT ILLNESS: The patient is a 80-year-old male with . The patient currently living in the snf. I received a call regarding the low hemoglobin level of 7.7. In the light of current anticoagulation treatment, the patient was transferred in the hospital for additional evaluation. PAST MEDICAL HISTORY: Chronic kidney disease stage 3-4, CVA with right hemiplegia, cardiomyopathy with EF of less than 25%, atrial fibrillation, neuropathic pain, and dementia. PAST SURGICAL HISTORY: Denies. ALLERGIES: MARYANA inhibitors and arbs. SOCIAL HISTORY: The patient is currently living in a intermediate facility. The patient denies any history of illicit drug abuse, smoking, or alcohol abuse. FAMILY HISTORY: Reviewed and noncontributory. HOSPITAL MEDICATIONS: Medications including, but not limited to Digoxin 240 mg, Levaquin 125 mg b.i.d., hydralazine 25 mg q. 8h., Isordil 10 mg t.i.d., Keppra 1500 mg b.i.d., levothyroxine 75 mcg q. daily, and warfarin per pharmacy. COURSE OF ER EVALUATION: The patient was admitted with stable vital signs showed the hemoglobin level is 8.2, which again compared to the previous month level of 10.2 four weeks ago. ASSESSMENT AND PLAN: 1. Acute anemia. 2. Atrial fibrillation with controlled rate on anticoagulation. 3. Hypercoagulation with the INR of 3.6. 4. Cardiomyopathy/congestive heart failure stable with the EF of less than 30. 5. Dementia agitated type stable. PLAN: 1. CVA with right hemiplegia at baseline. 2. Hypothyroidism. 3. Hypertension. 4. GI/DVT prophylaxis. PLAN OF CARE: No continuity current care and continue current medications. We will hold the Coumadin at hold. Proceed with the hemoglobin and hematocrit q. 12 hours. Cardiology, Dr. Crespo consulted to optimize medications. Ondina Geiger M.D. DR: CHOLO JOB#: [id number] CC: HÉCTOR
[2016-05-25 11:59] VITALS: BP 133/82
[2016-05-25] MEDS ORDERED: Digoxin 0.5mg/2ml Inj IVP ONE (15:30)
[2016-05-25 16:00] VITALS: BP 138/82
--- NOTE | 2016-05-25 18:26 | Cardiology Progress Note ---
Assessment/Plan Assessment/Plan The patient is seen and examined, full consult note is dictated. Objective Last 24 Hour Vital Signs Date Time Temp Pulse Resp B/P Pulse Ox O2 Delivery O2 Flow Rate FiO2 05/25/16 17:31 105 05/25/16 14:35 128/75 05/25/16 13:38 157/83 05/25/16 11:59 98.0 118 20 133/82 97 Room Air 05/25/16 09:00 78 05/25/16 08:54 141/81 05/25/16 08:53 78 141/81 05/25/16 08:15 97.7 78 21 141/81 95 Room Air 05/25/16 07:12 125 16 Room Air 21 05/25/16 05:55 149/83 05/25/16 04:00 97.7 90 20 149/83 95 Room Air 05/25/16 00:00 97.7 86 20 153/84 98 Room Air 05/24/16 19:26 98.2 109 18 129/77 97 Room Air 05/24/16 19:18 109 18 129/77 97 Room Air Intake and Output 05/24/16 05/25/16 19:00 07:00 Intake Total 0 ml 240 ml Output Total 500 ml Balance 0 ml -260 ml Intake Oral 0 ml 240 ml Output Urine Total 500 ml # Voids 1 Laboratory Tests Test 05/25/16 04:00 05/25/16 10:10 White Blood Count 5.0 K/UL (4.8-10.8) 5.0 K/UL (4.8-10.8) Red Blood Count 3.05 M/UL (4.70-6.10) L 3.11 M/UL (4.70-6.10) L Hemoglobin 8.7 G/DL (14.2-18.0) L 8.7 G/DL (14.2-18.0) L Hematocrit 27.2 % (42.0-52.0) L 27.5 % (42.0-52.0) L Mean Corpuscular Volume 89 FL (80-99) 88 FL (80-99) Mean Corpuscular Hemoglobin 28.4 PG (27.0-31.0) 27.8 PG (27.0-31.0) Mean Corpuscular Hemoglobin Concent 31.8 G/DL (32.0-36.0) L 31.4 G/DL (32.0-36.0) L Red Cell Distribution Width 16.8 % (11.6-14.8) H 16.3 % (11.6-14.8) H Platelet Count 154 K/UL (150-450) 168 K/UL (150-450) Mean Platelet Volume 7.1 FL (6.5-10.1) 5.9 FL (6.5-10.1) L Neutrophils (%) (Auto) 58.2 % (45.0-75.0) 57.6 % (45.0-75.0) Lymphocytes (%) (Auto) 21.4 % (20.0-45.0) 22.3 % (20.0-45.0) Monocytes (%) (Auto) 13.5 % (1.0-10.0) H 14.2 % (1.0-10.0) H Eosinophils (%) (Auto) 5.8 % (0.0-3.0) H 5.1 % (0.0-3.0) H Basophils (%) (Auto) 1.0 % (0.0-2.0) 0.9 % (0.0-2.0) Prothrombin Time 37.8 SEC (9.30-11.50) H Prothromb Time International Ratio 3.6 (0.9-1.1) H Sodium Level 144 mEQ/L (135-145) Potassium Level 4.0 mEQ/L (3.4-4.9) Chloride Level 107 mEQ/L (98-107) Carbon Dioxide Level 20 mEQ/L (20-30) Anion Gap 17 (5-15) H Blood Urea Nitrogen 17 mg/dL (7-23) Creatinine 1.8 mg/dL (0.7-1.2) H Estimat Glomerular Filtration Rate mL/min (>60) Glucose Level 90 mg/dL (74-106) Calcium Level 8.6 mg/dL (8.6-10.2) Total Bilirubin 0.5 mg/dL (0.0-1.2) Aspartate Amino Transf (AST/SGOT) 15 U/L (5-40) Alanine Aminotransferase (ALT/SGPT) 9 U/L (3-41) Alkaline Phosphatase 63 U/L (40-129) Total Protein 6.7 g/dL (6.6-8.7) Albumin 3.4 g/dL (3.5-5.2) L Globulin 3.3 g/dL Albumin/Globulin Ratio 1.0 (1.0-2.7) RINA CHAPPELL May 25, 2016 18:26
[2016-05-25] MEDS ORDERED: Albuterol ud Inhalation HHN PRN (18:30)
[2016-05-25] MEDS ORDERED: traMADol 50mg tab ORAL PRN (18:30)
[2016-05-25] MEDS ORDERED: guaiFENesin DM 100mg/5ml ORAL PRN (18:30)
[2016-05-25 21:01] VITALS: BP 138/82
[2016-05-25] MEDS: Tamsulosin 0.4mg cap ORAL SCH (21:33)
[2016-05-25] MEDS: Depakote 125mg Sprinkles ORAL SCH (21:33)
[2016-05-25 23:09] LABS: BASOPHILS % (AUTO) 1.2 % (0.0-2.0); EOSINOPHILS % (AUTO) 5.7 % (0.0-3.0); LYMPHOCYTES % (AUTO) 21.7 % (20.0-45.0); MEAN CORPUSCULAR HEMOGLOBIN 28.9 PG (27.0-31.0); MEAN CORPUSCULAR HGB CONC 32.1 G/DL (32.0-36.0); MEAN CORPUSCULAR VOLUME 90 FL (80-99); MEAN PLATELET VOLUME 6.5 FL (6.5-10.1); MONOCYTES % (AUTO) 14.8 % (1.0-10.0); NEUTROPHILS % (AUTO) 56.6 % (45.0-75.0); PLATELET COUNT 139 K/UL (150-450); RED BLOOD COUNT 2.91 M/UL (4.70-6.10); WHITE BLOOD COUNT 4.9 K/UL (4.8-10.8)
[2016-05-26] VITALS: BP 145/91
[2016-05-26 04:00] VITALS: BP 129/82
[2016-05-26] MEDS: HydrALAZINE 25mg tab ORAL SCH ×3 (06:33→22:16)
[2016-05-26] MEDS: Metoprolol 50mg tab ORAL SCH ×2 (07:53→22:16)
[2016-05-26] MEDS: Diltiazem CD 240mg cap ORAL SCH (07:53)
[2016-05-26] MEDS: Digoxin 0.125mg tab ORAL SCH (07:54)
[2016-05-26] MEDS: Depakote 125mg Sprinkles ORAL SCH ×2 (07:55→22:16)
[2016-05-26 08:00] VITALS: BP 136/90
[2016-05-26 08:35] LABS: INR 2.9 (0.9-1.1); PROTHROMBIN TIME 30.9 SEC (9.30-11.50)
[2016-05-26] MEDS ORDERED: Metoprolol 50mg tab ORAL SCH (09:00)
[2016-05-26 10:47] LABS: BASOPHILS % (AUTO) 1.2 % (0.0-2.0); EOSINOPHILS % (AUTO) 5.3 % (0.0-3.0); LYMPHOCYTES % (AUTO) 22.6 % (20.0-45.0); MEAN CORPUSCULAR HEMOGLOBIN 28.3 PG (27.0-31.0); MEAN CORPUSCULAR HGB CONC 31.9 G/DL (32.0-36.0); MEAN CORPUSCULAR VOLUME 89 FL (80-99); MONOCYTES % (AUTO) 15.2 % (1.0-10.0); NEUTROPHILS % (AUTO) 55.8 % (45.0-75.0); PLATELET COUNT 166 K/UL (150-450); RED BLOOD COUNT 3.11 M/UL (4.70-6.10); RED CELL DISTRIBUTION WIDTH 16.6 % (11.6-14.8); WHITE BLOOD COUNT 5.4 K/UL (4.8-10.8)
--- NOTE | 2016-05-26 11:23 | General Progress Note ---
Assessment/Plan Status: stable Assessment/Plan 1- Acute Anemia 2- CM with low EF 3- Dementia 4- Afib 5- Hypercoagulation 6- CVA-right sandhya-pelgia Plan: episodes of Afib-RVR stable hgb, start Iron supplement INR therapeutic now Subjective ROS Limited/Unobtainable: Yes - appears comfortable Allergies: Coded Allergies: MARYANA INHIBITORS (Unverified Allergy, Unknown, 01/31/14) ARB-ANGIOTENSIN RECEPTOR ANTAGONIST (Unverified Allergy, Unknown, 01/31/14) Objective Last 24 Hour Vital Signs Date Time Temp Pulse Resp B/P Pulse Ox O2 Delivery O2 Flow Rate FiO2 05/26/16 09:00 80 05/26/16 08:00 144 05/26/16 08:00 96.9 82 18 136/90 96 Room Air 05/26/16 07:54 136/90 05/26/16 07:54 130 05/26/16 07:53 130 136/90 05/26/16 07:53 130 136/90 05/26/16 07:35 131 16 Room Air 21 05/26/16 06:33 129/82 05/26/16 04:00 97.7 87 18 129/82 97 Room Air 05/26/16 03:48 121 05/26/16 00:17 110 05/26/16 00:00 97.7 75 16 145/91 97 Room Air 05/25/16 21:33 138/82 05/25/16 21:01 97.0 120 20 138/82 96 Room Air 05/25/16 20:00 83 05/25/16 18:54 128/75 05/25/16 17:31 105 05/25/16 16:00 97.0 120 20 138/82 96 Room Air 05/25/16 14:35 128/75 05/25/16 13:38 157/83 05/25/16 11:59 98.0 118 20 133/82 97 Room Air Intake and Output 05/25/16 05/26/16 19:00 07:00 Intake Total 480 ml 200 ml Output Total 600 ml 500 ml Balance -120 ml -300 ml Intake Oral 480 ml 200 ml Output Urine Total 600 ml 500 ml # Voids 2 2 Laboratory Tests 05/25/16 22:30: White Blood Count 4.9, Red Blood Count 2.91L, Hemoglobin 8.4L, Hematocrit 26.2L , Mean Corpuscular Volume 90, Mean Corpuscular Hemoglobin 28.9, Mean Corpuscular Hemoglobin Concent 32.1, Red Cell Distribution Width 16.0H, Platelet Count 139L, Mean Platelet Volume 6.5, Neutrophils (%) (Auto) 56.6, Lymphocytes (%) (Auto) 21.7, Monocytes (%) (Auto) 14.8H, Eosinophils (%) (Auto) 5.7H, Basophils (%) (Auto) 1.2 05/26/16 06:50: Prothrombin Time 30.9H, Prothromb Time International Ratio 2.9H 05/26/16 09:55: White Blood Count 5.4, Red Blood Count 3.11L, Hemoglobin 8.8L, Hematocrit 27.6L , Mean Corpuscular Volume 89, Mean Corpuscular Hemoglobin 28.3, Mean Corpuscular Hemoglobin Concent 31.9L, Red Cell Distribution Width 16.6H, Platelet Count 166, Mean Platelet Volume 7.0, Neutrophils (%) (Auto) 55.8, Lymphocytes (%) (Auto) 22.6, Monocytes (%) (Auto) 15.2H, Eosinophils (%) (Auto) 5.3H, Basophils (%) (Auto) 1.2 Height (Feet): 5 Height (Inches): 10.00 Weight (Pounds): 190 General Appearance: no apparent distress EENT: PERRL/EOMI Neck: supple Cardiovascular: normal rate Respiratory/Chest: lungs clear Abdomen: soft Extremities: non-tender Neurologic: disoriented - demted at his baseline Ondina Geiger MD May 26, 2016 11:23
[2016-05-26 12:00] VITALS: BP 144/74
[2016-05-26 16:00] VITALS: BP 137/89
[2016-05-26] MEDS ORDERED: Warfarin Sodium 4mg PO ONE (17:00)
[2016-05-26 20:00] VITALS: BP 147/85
--- NOTE | 2016-05-26 21:48 | Consultation ---
DATE OF CONSULTATION: 05/25/2016 HISTORY OF PRESENT ILLNESS: This is a 80-year-old black male with history of schizoaffective disorder as well as urinary tract infection, arthralgia, dementia, CVA, cardiomyopathy, and anemia has been admitted to the hospital due to question for anemia. The patient has history of schizoaffective disorder and has been treated with antipsychotics as well as mood stabilizer. During the evaluation, the son and a friend were in the room. He got into an argument with his son, since his son was asking about his medications. He is presenting with a paranoid ideation, irritable mood, anxiety, insomnia, and decreased appetite. PAST PSYCHIATRIC HISTORY: Diagnosed with schizoaffective disorder and has been treated with mood stabilizers and antipsychotics. No history of violence. No suicide attempts in the past. He has been admitted to the psychiatric hospital before. PAST MEDICAL HISTORY: Includes CVA, vascular dementia, cardiomyopathy, neuropathic pain, dementia, and atrial fibrillation. PAST SURGICAL HISTORY: None. ALLERGIES: MARYANA inhibitors and ARBs. SUBSTANCE ABUSE HISTORY: No history of illicit drugs or alcohol. He is not a smoker. SOCIAL HISTORY: The patient lives in a detention, [facility]. MENTAL STATUS EXAMINATION: The patient is alert and oriented x3. Mood is irritable. Affect is constricted. Congruent mood. Thought process is concrete. Thought content, positive for paranoid ideation. Insight and judgment is impaired. ASSESSMENT: [place] I Schizoaffective disorder. [place] II Deferred. Kingston III . [place] IV Low. [place] V Global assessment of functioning is 50. PLAN: 1. The patient's Depakote will be increased to 500 mg p.o. b.i.d. 2. Continue to follow and readjust the medication. Rufus Velasquez M.D. DR: GRISELDA JOB#: [id number] CC:
[2016-05-26 22:11] LABS: LYMPHOCYTES % (AUTO) 23.5 % (20.0-45.0); MEAN CORPUSCULAR HEMOGLOBIN 27.8 PG (27.0-31.0); MEAN CORPUSCULAR HGB CONC 30.8 G/DL (32.0-36.0); MEAN CORPUSCULAR VOLUME 90 FL (80-99); MONOCYTES % (AUTO) 14.3 % (1.0-10.0); NEUTROPHILS % (AUTO) 55.3 % (45.0-75.0); PLATELET COUNT 150 K/UL (150-450); RED BLOOD COUNT 2.95 M/UL (4.70-6.10); RED CELL DISTRIBUTION WIDTH 15.9 % (11.6-14.8); WHITE BLOOD COUNT 5.1 K/UL (4.8-10.8)
[2016-05-26] MEDS: Tamsulosin 0.4mg cap ORAL SCH (22:17)
--- NOTE | 2016-05-26 23:20 | Cardiology Progress Note ---
Assessment/Plan Assessment/Plan 1. Permanent atrial fibrillation, INR within the therapeutic level, target 2-3, rate control with three AV rajinder agents. 2. CVA with right hemiplegia 3. Severe pulmonary HTN 4. Hypertensive heart disease, increase hydralazine. 5. CKD Subjective Subjective Atrial fibrillation at 85. Objective Last 24 Hour Vital Signs Date Time Temp Pulse Resp B/P Pulse Ox O2 Delivery O2 Flow Rate FiO2 05/26/16 22:16 81 147/85 05/26/16 22:16 147/85 05/26/16 21:28 81 18 Room Air 21 05/26/16 20:00 97.2 83 18 147/85 98 Room Air 05/26/16 17:25 137/89 05/26/16 16:00 98.4 63 18 137/89 96 Room Air 05/26/16 13:51 136/90 05/26/16 13:00 136/90 05/26/16 12:00 96.9 81 18 144/74 97 05/26/16 09:00 80 05/26/16 08:00 144 05/26/16 08:00 96.9 82 18 136/90 96 Room Air 05/26/16 07:54 136/90 05/26/16 07:54 130 05/26/16 07:53 130 136/90 05/26/16 07:53 130 136/90 05/26/16 07:35 131 16 Room Air 21 05/26/16 06:33 129/82 05/26/16 04:00 97.7 87 18 129/82 97 Room Air 05/26/16 03:48 121 05/26/16 00:17 110 05/26/16 00:00 97.7 75 16 145/91 97 Room Air Intake and Output 05/25/16 05/26/16 19:00 07:00 Intake Total 480 ml 200 ml Output Total 600 ml 500 ml Balance -120 ml -300 ml Intake Oral 480 ml 200 ml Output Urine Total 600 ml 500 ml # Voids 2 2 2D Echo: EF 65%, Mild LVH, NIXON, Mild MR, RVSP 74 mmHg, IVC 2.9 cm, RAP 20 mmHg Laboratory Tests Test 05/26/16 06:50 05/26/16 09:55 05/26/16 21:55 Prothrombin Time 30.9 SEC (9.30-11.50) H Prothromb Time International Ratio 2.9 (0.9-1.1) H White Blood Count 5.4 K/UL (4.8-10.8) 5.1 K/UL (4.8-10.8) Red Blood Count 3.11 M/UL (4.70-6.10) L 2.95 M/UL (4.70-6.10) L Hemoglobin 8.8 G/DL (14.2-18.0) L 8.2 G/DL (14.2-18.0) L Hematocrit 27.6 % (42.0-52.0) L 26.7 % (42.0-52.0) L Mean Corpuscular Volume 89 FL (80-99) 90 FL (80-99) Mean Corpuscular Hemoglobin 28.3 PG (27.0-31.0) 27.8 PG (27.0-31.0) Mean Corpuscular Hemoglobin Concent 31.9 G/DL (32.0-36.0) L 30.8 G/DL (32.0-36.0) L Red Cell Distribution Width 16.6 % (11.6-14.8) H 15.9 % (11.6-14.8) H Platelet Count 166 K/UL (150-450) 150 K/UL (150-450) Mean Platelet Volume 7.0 FL (6.5-10.1) 6.0 FL (6.5-10.1) L Neutrophils (%) (Auto) 55.8 % (45.0-75.0) 55.3 % (45.0-75.0) Lymphocytes (%) (Auto) 22.6 % (20.0-45.0) 23.5 % (20.0-45.0) Monocytes (%) (Auto) 15.2 % (1.0-10.0) H 14.3 % (1.0-10.0) H Eosinophils (%) (Auto) 5.3 % (0.0-3.0) H 6.0 % (0.0-3.0) H Basophils (%) (Auto) 1.2 % (0.0-2.0) 1.0 % (0.0-2.0) Objective HEENT: normocephalic, atraumatic, PERRLA, EOMI, dry mucus membranes Neck: Negative JVD, no carotid bruit, carotid upstroke 2+ B/L Respiratory: Bilateral crackles Cardiovascular: Normal S1S2, irregularly irregular rhythm, no murmurs, gallops or rubs Gastrointestinal: soft, non-tender, non-distended, +BS, no HSM Musculoskeletal: no edema, clubbing or cyanosis RINA CHAPPELL May 26, 2016 23:20
[2016-05-27 00:10] VITALS: BP 149/98
--- NOTE | 2016-05-27 00:58 | Consultation ---
DATE OF CONSULTATION: 05/25/2016 CARDIOLOGY CONSULTATION: REFERRING PHYSICIAN: Ondina Geiger M.D. REASON FOR CONSULTATION: Management of atrial fibrillation. HISTORY OF PRESENT ILLNESS: The patient is a very pleasant 80-year-old gentleman, who is a resident of a nursing facility. He is brought in to this facility for evaluation of anemia. The patient had hemoglobin of 7.7, in view of therapy. He required to have workup of anemia including possibly endoscopy evaluation for a GI bleed. On arrival to the emergency department, his INR was 3.6. A 12-lead electrocardiogram was significant for atrial fibrillation and heart rate of [address] and T-wave abnormalities. A 2D echocardiography revealed normal left ventricular systolic function with LVEF of about 60% to 65%. Mild left ventricular hypertrophy and pulmonary artery pressure of 74 mmHg consistent with severe pulmonary hypertension. The patient is seen in Cardiology consultation at request of Dr. Geiger for evaluation and management of atrial fibrillation PAST MEDICAL HISTORY: Includes, 1. Chronic kidney disease. 2. Cerebrovascular accident with right hemiplegia. 3. History of atrial fibrillation. 4. History of neuropathic pain. 5. History of dementia. PAST SURGICAL HISTORY: None. MEDICATIONS: Medications in the nursing facility includes acetaminophen 650 mg q. 4 hours p.r.n. pain with temperature 101 degrees, albuterol inhaler q.4 hours p.r.n. shortness of breath, digoxin 125 mcg p.o. daily, diltiazem 240 mg p.o. daily, divalproex sodium 125 mg p.o. q.12 hours, Robitussin, dextromethorphan 10 mL p.o. q.6 hours p.r.n. cough, hydralazine 25 mg p.o. q. 8 hours, Isordil 10 mg p.o. q.8 hours, Keppra 1500 mg p.o. q.12 hours, levothyroxine 75 mcg p.o. daily, metoprolol 50 mg p.o. q.8 hours, tamsulosin 0.4 mg p.o. at nightly, Ultram 25 mg p.o. daily p.r.n. q.8 hours, and warfarin 5 mg p.o. daily. ALLERGIES: To MARYANA inhibitors and angiotensin receptor blockers. SOCIAL HISTORY: He is a resident of a snf facility. Denies any tobacco, alcohol, or illicit drug use. FAMILY HISTORY: No premature coronary artery disease in first-degree relatives. REVIEW OF SYSTEMS: HEENT: Denies any headache, diplopia, or blurred vision Constitutional: Generalized weakness, but no fever, chills, or night sweats. Cardiovascular: Denies any chest pain, shortness of breath, PND, orthopnea, or leg swelling. Pulmonary: Denies any cough, hemoptysis, or wheezing. Gastrointestinal: Denies any nausea, vomiting, diarrhea, constipation, abdominal pain, or GI bleed. Genitourinary: Denies any hematuria, dysuria, or incontinence. Neurologic: Decreased motor function on the right side of his body as well as altered speech. History of stroke. PHYSICAL EXAMINATION: VITAL SIGNS: Blood pressure was 138/72, respirations 18, pulse 85, O2 saturation 95% on room air, and temperature 98.2 degrees Fahrenheit. GENERAL: The patient is a very unfortunate 80-year-old gentleman, who is in no apparent respiratory distress. Alert and oriented x4. HEENT: Atraumatic and normocephalic. Anicteric. Pupils are equal, round, and reactive to light and accommodation. Extraocular muscles intact. NECK: JVP is less than 5 cm. No carotid bruits. Carotid upstrokes 2+ bilaterally. CVS: Normal S1, S2. Irregularly irregular rhythm. No murmurs, gallops, or rubs. PMI is at the fourth intercostal space in the midclavicular line. LUNGS: Bilateral crackles. ABDOMEN: Soft, nontender, and nondistended. No hepatosplenomegaly. Positive bowel sounds. EXTREMITIES: No evidence of edema, clubbing, or cyanosis. Decreased motor function of the right upper and lower limb. LABORATORY FINDINGS: INR was 3.6 and PT of 38.2. Sodium 144, potassium 4.1, chloride 107, bicarbonate 22, BUN 20, creatinine 1.9, and glucose 106. Calcium is 8.4. Troponin I is less than 0.3. WBC was 5.4, hemoglobin 8.2, hematocrit 36.5, and platelet count 142,000. Chest x-ray showed enlargement of cardiac silhouette and pulmonary vascular redistribution and prominence, interstitial markings suggest of interstitial edema consistent with congestive heart failure. ASSESSMENT AND PLAN: The patient is a very unfortunate 80-year-old gentleman, seen in Cardiology consultation at request of Dr. Geiger, 1. Symptomatic anemia as the patient is currently under workup of other Gastroenterology workup. 2. Hypertensive heart disease with normal LV systolic function according to 2D echocardiography on admission. 3. Severe pulmonary hypertension. 4. Chronic kidney disease. 5. History of cerebrovascular accident with right hemiplegia. Continue aspirin and statins. 6. History of atrial fibrillation on warfarin therapy. The patient may be a candidate for oral anticoagulants seems to be that the INR is supratherapeutic. Currently warfarin is on hold in anticipation of endoscopic procedure. I would like to thank, Dr. Geiger for involving the care of this most pleasant patient. Tj Crespo M.D. DR: Amish JOB#: [id number] CC:
[2016-05-27 04:15] VITALS: BP 145/74
[2016-05-27] MEDS: HydrALAZINE 25mg tab ORAL SCH ×2 (06:27→13:29)
[2016-05-27 08:00] VITALS: BP 132/77
--- NOTE | 2016-05-27 08:29 | Cardiology Report ---
APPROVED REPORT EKG Measurement Heart [id number] Atrial fibrillation Anteroseptal infarct, age undetermined Abnormal ECG
[2016-05-27 08:44] LABS: INR 3.4 (0.9-1.1); PROTHROMBIN TIME 36.3 SEC (9.30-11.50)
--- NOTE | 2016-05-27 08:46 | Cardiology Report ---
APPROVED REPORT EXAM: Two-dimensional and M-mode echocardiogram with Doppler and color Doppler. INDICATION Atrial Fibrillation M-Mode DIMENSIONS IVSd1.6 (0.7-1.1cm)Left Atrium (MM)4.9 (1.6-4.0cm) LVDd3.9 (3.5-5.6cm)Aortic Root3.6 (2.0-3.7cm) PWd1.4 (0.7-1.1cm)Aortic Cusp Exc.1.9 (1.5-2.0cm) LVDs2.4 (2.5-4.0cm) PWs2.6 cm Normal left ventricular chamber size, systolic function and wall motion. Left ventricular ejection fraction estimated to be 60-65%. Mild left ventricular hypertrophy. No evidence of pericardial effusion. Moderate bi-atrial enlargement. Mild right ventricular enlargement. Focal aortic valve sclerosis with adequate cusp excursion Thickened mitral valve leaflets with normal excursion. Mitral annulus and aortic root calcification. Pulmonic valve not well visualized. Normal tricuspid valve structure. IVC dilated at 2.9 cm without physiologic collapse suggestive of elevated RAP. A color flow and spectral Doppler study was performed and revealed: Mild mitral regurgitation. Left ventricular diastolic function not determined due to A-FIB. Moderate tricuspid regurgitation. Tricuspid systolic velocities suggests peak right ventricular systolic pressure of 74 mmHg, consistent with severe pulmonary hypertension.
[2016-05-27] MEDS: Digoxin 0.125mg tab ORAL SCH (09:10)
[2016-05-27] MEDS: Metoprolol 50mg tab ORAL SCH (09:11)
[2016-05-27] MEDS: Diltiazem CD 240mg cap ORAL SCH (09:11)
[2016-05-27] MEDS: Depakote 125mg Sprinkles ORAL SCH (09:11)
--- NOTE | 2016-05-27 09:41 | General Progress Note ---
Assessment/Plan Status: stable Assessment/Plan 1- Acute Anemia 2- CM with Preserved EF, Diastolic HF 3- Dementia 4- Afib 5- Hypercoagulation 6- CVA-right sandhya-pelgia 7- Severe PAH Plan: episodes of Afib-RVR stable hgb, start Iron supplement INR therapeutic now Subjective ROS Limited/Unobtainable: Yes - seems comfortable Allergies: Coded Allergies: MARYANA INHIBITORS (Unverified Allergy, Unknown, 01/31/14) ARB-ANGIOTENSIN RECEPTOR ANTAGONIST (Unverified Allergy, Unknown, 01/31/14) Objective Last 24 Hour Vital Signs Date Time Temp Pulse Resp B/P Pulse Ox O2 Delivery O2 Flow Rate FiO2 05/27/16 09:11 114 145/74 05/27/16 09:11 145/74 05/27/16 09:11 114 145/74 05/27/16 09:10 114 05/27/16 08:38 64 16 Room Air 05/27/16 06:27 145/74 05/27/16 04:15 97.2 57 20 145/74 96 Room Air 05/27/16 04:00 96 05/27/16 00:10 97.5 73 20 149/98 96 Room Air 05/27/16 00:00 78 05/26/16 22:16 81 147/85 05/26/16 22:16 147/85 05/26/16 21:28 81 18 Room Air 21 05/26/16 20:00 97.2 83 18 147/85 98 Room Air 05/26/16 17:25 137/89 05/26/16 16:00 98.4 63 18 137/89 96 Room Air 05/26/16 16:00 98 05/26/16 13:51 136/90 05/26/16 13:00 136/90 05/26/16 12:00 96.9 81 18 144/74 97 Intake and Output 05/26/16 05/27/16 19:00 07:00 Intake Total 120 ml 120 ml Output Total 420 ml 400 ml Balance -300 ml -280 ml Intake Oral 120 ml 120 ml Output Urine Total 420 ml 400 ml # Voids 2 2 Laboratory Tests 05/26/16 09:55: White Blood Count 5.4, Red Blood Count 3.11L, Hemoglobin 8.8L, Hematocrit 27.6L , Mean Corpuscular Volume 89, Mean Corpuscular Hemoglobin 28.3, Mean Corpuscular Hemoglobin Concent 31.9L, Red Cell Distribution Width 16.6H, Platelet Count 166, Mean Platelet Volume 7.0, Neutrophils (%) (Auto) 55.8, Lymphocytes (%) (Auto) 22.6, Monocytes (%) (Auto) 15.2H, Eosinophils (%) (Auto) 5.3H, Basophils (%) (Auto) 1.2 05/26/16 21:55: White Blood Count 5.1, Red Blood Count 2.95L, Hemoglobin 8.2L, Hematocrit 26.7L , Mean Corpuscular Volume 90, Mean Corpuscular Hemoglobin 27.8, Mean Corpuscular Hemoglobin Concent 30.8L, Red Cell Distribution Width 15.9H, Platelet Count 150, Mean Platelet Volume 6.0L, Neutrophils (%) (Auto) 55.3, Lymphocytes (%) (Auto) 23.5, Monocytes (%) (Auto) 14.3H, Eosinophils (%) (Auto) 6.0H, Basophils (%) (Auto) 1.0 05/27/16 06:35: Prothrombin Time 36.3H, Prothromb Time International Ratio 3.4H Height (Feet): 5 Height (Inches): 10.00 Weight (Pounds): 190 General Appearance: no apparent distress EENT: PERRL/EOMI Neck: supple Cardiovascular: tachycardia Respiratory/Chest: lungs clear Abdomen: soft Extremities: other Neurologic: disoriented - demented, at base line Ondina Geiger MD May 27, 2016 09:41
[2016-05-27 12:00] VITALS: BP 125/74
--- NOTE | 2016-05-27 15:05 | Cardiology Progress Note ---
Assessment/Plan Assessment/Plan 1. Permanent atrial fibrillation, INR within the therapeutic level, target 2-3, rate control with three AV rajinder agents. 2. CVA with right hemiplegia 3. Severe pulmonary HTN 4. Hypertensive heart disease, increase hydralazine, continue metoprolol and verapamil. 5. CKD Subjective Subjective Atrial fibrillation at 82. Objective Last 24 Hour Vital Signs Date Time Temp Pulse Resp B/P Pulse Ox O2 Delivery O2 Flow Rate FiO2 05/27/16 13:30 145/74 05/27/16 13:29 145/74 05/27/16 12:00 82 05/27/16 09:11 114 145/74 05/27/16 09:11 145/74 05/27/16 09:11 114 145/74 05/27/16 09:10 114 05/27/16 08:38 64 16 Room Air 21 05/27/16 08:00 105 05/27/16 08:00 97.9 86 17 132/77 98 Room Air 05/27/16 06:27 145/74 05/27/16 04:15 97.2 57 20 145/74 96 Room Air 05/27/16 04:00 96 05/27/16 00:10 97.5 73 20 149/98 96 Room Air 05/27/16 00:00 78 05/26/16 22:16 81 147/85 05/26/16 22:16 147/85 05/26/16 21:28 81 18 Room Air 21 05/26/16 20:00 97.2 83 18 147/85 98 Room Air 05/26/16 17:25 137/89 05/26/16 16:00 98.4 63 18 137/89 96 Room Air 05/26/16 16:00 98 Intake and Output 05/26/16 05/27/16 19:00 07:00 Intake Total 120 ml 120 ml Output Total 420 ml 400 ml Balance -300 ml -280 ml Intake Oral 120 ml 120 ml Output Urine Total 420 ml 400 ml # Voids 2 2 2D Echo: EF 65%, Mild LVH, NIXON, Mild MR, RVSP 74 mmHg, IVC 2.9 cm, RAP 20 mmHg Laboratory Tests Test 05/26/16 21:55 05/27/16 06:35 White Blood Count 5.1 K/UL (4.8-10.8) Red Blood Count 2.95 M/UL (4.70-6.10) L Hemoglobin 8.2 G/DL (14.2-18.0) L Hematocrit 26.7 % (42.0-52.0) L Mean Corpuscular Volume 90 FL (80-99) Mean Corpuscular Hemoglobin 27.8 PG (27.0-31.0) Mean Corpuscular Hemoglobin Concent 30.8 G/DL (32.0-36.0) L Red Cell Distribution Width 15.9 % (11.6-14.8) H Platelet Count 150 K/UL (150-450) Mean Platelet Volume 6.0 FL (6.5-10.1) L Neutrophils (%) (Auto) 55.3 % (45.0-75.0) Lymphocytes (%) (Auto) 23.5 % (20.0-45.0) Monocytes (%) (Auto) 14.3 % (1.0-10.0) H Eosinophils (%) (Auto) 6.0 % (0.0-3.0) H Basophils (%) (Auto) 1.0 % (0.0-2.0) Prothrombin Time 36.3 SEC (9.30-11.50) H Prothromb Time International Ratio 3.4 (0.9-1.1) H Objective HEENT: normocephalic, atraumatic, PERRLA, EOMI, dry mucus membranes Neck: Negative JVD, no carotid bruit, carotid upstroke 2+ B/L Respiratory: Bilateral crackles Cardiovascular: Normal S1S2, irregularly irregular rhythm, no murmurs, gallops or rubs Gastrointestinal: soft, non-tender, non-distended, +BS, no HSM Musculoskeletal: no edema, clubbing or cyanosis RINA CHAPPELL May 27, 2016 15:05
[2016-05-27 15:25] LABS: BASOPHILS % (AUTO) 0.9 % (0.0-2.0); EOSINOPHILS % (AUTO) 6.3 % (0.0-3.0); LYMPHOCYTES % (AUTO) 29.9 % (20.0-45.0); MEAN CORPUSCULAR HGB CONC 31.6 G/DL (32.0-36.0); MEAN CORPUSCULAR VOLUME 89 FL (80-99); MEAN PLATELET VOLUME 6.9 FL (6.5-10.1); MONOCYTES % (AUTO) 15.3 % (1.0-10.0); NEUTROPHILS % (AUTO) 47.6 % (45.0-75.0); PLATELET COUNT 188 K/UL (150-450); RED BLOOD COUNT 3.33 M/UL (4.70-6.10); WHITE BLOOD COUNT 5.7 K/UL (4.8-10.8)
[2016-05-27 16:00] VITALS: BP 111/57
--- NOTE | 2016-05-28 03:40 | Progress Note ---
SUBJECTIVE: The patient's mental condition is unchanged since previous encounter. Continues to be irritable. Poor insight and judgment into his mental condition. Compliant with medications. MENTAL STATUS EXAMINATION: Alert and oriented x3. Mood is irritable. Affect is constricted. Congruent with mood. Thought process is concrete. Thought content, no suicidal or homicidal ideations. ASSESSMENT: Schizoaffective disorder. PLAN: 1. The patient will be continued with current medication. 2. Provide the patient with supportive therapy and reality orientation. Rufus Velasquez M.D. DR: JOSEPH JOB#: [id number] CC:
--- NOTE | 2016-05-28 13:10 | Discharge Summary ---
Discharge Summary Hospital Course Date of Admission May 24, 2016 at 17:39 Date of Discharge May 27, 2016 at 17:30 Admitting Diagnosis symptomatic anemia HPI Debbie Ybarra is a 80 year old male who was admitted on May 24, 2016 at 17: 39 for Symptomatic Anemia Hospital Course [id number] Discharge Discharge Disposition Patient was discharged to SNF/Subacute Facility(03) Discharge Diagnoses: Cecy Marin NP May 28, 2016 13:10
--- NOTE | 2016-05-29 02:18 | Discharge Summary 2 SIG ---
DATE OF ADMISSION: 05/24/2016 DATE OF DISCHARGE: 05/27/2016 CONSULTANTS: 1. Tj Crespo M.D. 2. Rufus Velasquez M.D. BRIEF HOSPITAL COURSE: The patient is a 80-year-old, male from care home was sent to [facility] ED for anemia. Hemoglobin level done as an outpatient was 7.7. On evaluation at ED, hemoglobin level was 8.2. Four weeks prior, hemoglobin was at 10. The patient was admitted for acute anemia. Coumadin was placed on hold. Dr. Crespo was consulted. The patient has atrial fibrillation and has been on Coumadin. On arrival to ED, INR was 2.6. A 12-lead electrocardiogram was significant for atrial fibrillation with heart rate of 67. Echocardiogram done showed normal left ventricular systolic function with LVEF of 60% to 65%, mild left ventricular hypertrophy and pulmonary artery pressure of 74 consistent with severe pulmonary hypertension. Dr. Velasquez was also consulted. The patient has schizoaffective disorder and has been treated with antipsychotics as well as mood stabilizer. Depakote was increased to 500 mg b.i.d. The patient had stable hemoglobin and was given iron supplements. INR was on therapeutic range. The patient was discharged back to SNF. FINAL DIAGNOSES: 1. Acute anemia. 2. Hypercoagulable state secondary to Coumadin use. 3. Atrial fibrillation on anticoagulation. 4. Cerebrovascular accident with right hemiplegia. 5. Severe pulmonary hypertension. 6. Hypertensive heart disease. 7. Dementia. 8. Cardiomyopathy with a preserved ejection fraction with chronic diastolic heart failure. 9. Schizoaffective disorder. Ondina Geiger M.D. I have been assigned to dictate discharge summary on this account and I was not involved in the patient's management. Cecy Marin N.P. DR: DANISH JOB#: [id number] CC: HÉCTOR
== END 2016-05-27 17:30 | DRG 812 ==
LOC: EDBD 16:07 → EDBEDREQ 17:22 → EMR 17:22 → 4E 17:39 → EDBEDREQ 18:02 → 4E 22:13 → 2E 05-25 16:30
DX: D64.9 Anemia, unspecified (principal); D68.69 Other thrombophilia; F03.90 Unspecified dementia, unspecified severity, without behavioral disturbance, psychotic disturbance, mood disturbance, and anxiety; I42.9 Cardiomyopathy, unspecified; I27.2 Other secondary pulmonary hypertension; I50.32 Chronic diastolic (congestive) heart failure; I13.0 Hypertensive heart and chronic kidney disease with heart failure and stage 1 through stage 4 chronic kidney disease, or unspecified chronic kidney disease; I69.351 Hemiplegia and hemiparesis following cerebral infarction affecting right dominant side; Z79.01 Long term (current) use of anticoagulants; F25.9 Schizoaffective disorder, unspecified; F41.9 Anxiety disorder, unspecified; G47.00 Insomnia, unspecified; N18.9 Chronic kidney disease, unspecified; I48.2 Chronic atrial fibrillation
CPT/HCPCS: 36415; 71010; 80053; 80162; 80299; 82550; 82553; 84484; 85025; 85610; 85730; 86850; 86900; 86901; 86920; 93005; 93306; 94664

== ENCOUNTER 2016-06-09 16:18 | Inpatient (IN) | payer MEDICARE, MEDICAID ==
[~2016-06-09] VITALS: Ht 180.3 cm; Wt 87.5 kg
[~2016-06-09 16:18] MED LIST changes: +ALBUTEROL2.5 MG/3 M INH; +ROBITUSSIN COU118 M4 PO
[2016-06-09] MEDS ORDERED: levETIRAcetam 500 MG in D5W 110 ML IVPB ONE (16:30)
[2016-06-09] MEDS ORDERED: LORazepam Inj 2mg/ml 1ml IM ONE (16:30)
--- NOTE | 2016-06-09 16:42 | Emergency Room Report ---
History of Present Illness General Chief Complaint: Seizure Source: Patient Present Illness HPI Patient is a 80-year-old male who presented after having witnessed seizure at a physician's office. Patient noted have four seizures while hospital. Patient was noted to have history of seizure disorder and previous CVA. The patient had recently had his medication doses adjusted. Patient had residual right- sided weakness. 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 Hx COPD: Yes Hx Diabetes: No - hypothyroidism Hx Cancer: No Hx Gastrointestinal Problems: No Hx Dialysis: No - CKD Hx Neurological Problems: Yes - Encephalapathy,Neuralgia Hx Cerebrovascular Accident: Yes Hx Dementia: Yes Hx Seizures: Yes Hx Weakness: Yes Review of Systems All Other Systems: negative except mentioned in HPI Physical Exam Vital Signs Date Time Temp Pulse Resp B/P Pulse Ox O2 Delivery O2 Flow Rate FiO2 06/09/16 16:26 118 20 152/80 100 Room Air Sp02 EP Interpretation: reviewed, normal General Appearance: normal inspection, well appearing, no apparent distress, alert, Postictal Head: atraumatic ENT: normal ENT inspection, hearing 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, normal voice Neck: normal inspection, full range of motion, supple, no bony tend Respiratory: normal inspection, lungs clear, normal breath sounds, no respiratory distress, no retraction, no wheezing Cardiovascular #1: regular rate, rhythm, no edema Gastrointestinal: normal inspection, normal bowel sounds, non tender, soft, no guarding, no hernia Genitourinary: no CVA tenderness Musculoskeletal: normal inspection, back normal, normal range of motion Neurologic: normal inspection, alert, responsive, speech normal, motor weakness - right upper extremity Psychiatric: normal inspection, judgement/insight normal, mood/affect normal Skin: normal inspection, normal color, no rash Medical Decision Making Diagnostic Impression: Primary Impression: Convulsive generalized seizure disorder Additional Impression: Status epilepticus, generalized convulsive ER Course Patient presented for seizure. Differential diagnosis included cysticercosis, electrolyte abnormality, status epilepticus, mass lesion, or cranial hemorrhage.Because of complexity of patient's case laboratory testing and imaging studies were ordered. Patient was given IV Ativan after seizures in the emergency department. Patient was also given IV Keppra. Patient was noted to have improvement in seizure. The patient was discussed with Dr. Dowd for neurology. He recommended additional IV Depakote. The patient was discussed with Dr. Lopez Geiger for inpatient management Labs Test 06/09/16 16:57 06/09/16 17:26 White Blood Count 6.9 K/UL (4.8-10.8) Red Blood Count 4.20 M/UL (4.70-6.10) Hemoglobin 11.6 G/DL (14.2-18.0) Hematocrit 36.5 % (42.0-52.0) Mean Corpuscular Volume 87 FL (80-99) Mean Corpuscular Hemoglobin 27.5 PG (27.0-31.0) Mean Corpuscular Hemoglobin Concent 31.7 G/DL (32.0-36.0) Red Cell Distribution Width 15.5 % (11.6-14.8) Platelet Count 210 K/UL (150-450) Mean Platelet Volume 7.3 FL (6.5-10.1) Neutrophils (%) (Auto) 57.6 % (45.0-75.0) Lymphocytes (%) (Auto) 25.6 % (20.0-45.0) Monocytes (%) (Auto) 12.6 % (1.0-10.0) Eosinophils (%) (Auto) 2.3 % (0.0-3.0) Basophils (%) (Auto) 2.0 % (0.0-2.0) Sodium Level 135 mEQ/L (135-145) Potassium Level 4.3 mEQ/L (3.4-4.9) Chloride Level 93 mEQ/L (98-107) Carbon Dioxide Level 22 mEQ/L (20-30) Anion Gap 20 (5-15) Blood Urea Nitrogen 13 mg/dL (7-23) Creatinine 1.8 mg/dL (0.7-1.2) Estimat Glomerular Filtration Rate mL/min (>60) Glucose Level 104 mg/dL (74-106) Calcium Level 9.3 mg/dL (8.6-10.2) Total Bilirubin 0.4 mg/dL (0.0-1.2) Aspartate Amino Transf (AST/SGOT) 18 U/L (5-40) Alanine Aminotransferase (ALT/SGPT) 7 U/L (3-41) Alkaline Phosphatase 76 U/L (40-129) Total Protein 8.7 g/dL (6.6-8.7) Albumin 4.3 g/dL (3.5-5.2) Globulin 4.4 g/dL Albumin/Globulin Ratio 0.9 (1.0-2.7) Valproic Acid (Depakene) Level 27 ug/mL (50-100) Serum Alcohol < 10 mg/dL Urine Color Pale yellow Urine Appearance Clear Urine pH 5 (4.5-8.0) Urine Specific [place] 1.015 (1.005-1.035) Urine Protein 2+ (NEGATIVE) Urine Glucose (UA) Negative (NEGATIVE) Urine Ketones Negative (NEGATIVE) Urine Occult Blood Negative (NEGATIVE) Urine Nitrite Negative (NEGATIVE) Urine Bilirubin Negative (NEGATIVE) Urine Urobilinogen Normal MG/DL (0.0-1.0) Urine Leukocyte Esterase 1+ (NEGATIVE) Urine RBC 2-4 /HPF (0 - 0) Urine WBC 5-10 /HPF (0 - 0) Urine Squamous Epithelial Cells None /LPF (NONE/OCC) Urine Bacteria Few /HPF (NONE) EKG Diagnostic Results Rate: other - afib Rhythm: other ST Segments: no acute changes ASA given to the pt in ED: No Rhythm Strip Diag. Results EP Interpretation: yes Rhythm: no PVC's, no ectopy, other - afib Chest X-Ray Diagnostic Results EP Interpretation: Yes Findings: no consolidation, no effusion, no pneumothorax, no acute cardiopulmonary disease Number of Views: 1 Last Vital Signs Date Time Temp Pulse Resp B/P Pulse Ox O2 Delivery O2 Flow Rate FiO2 06/09/16 16:26 118 20 152/80 100 Room Air Status: unchanged Disposition: ADMITTED INPATIENT Condition: Serious Herbie Eason Jun 09, 2016 16:42
[2016-06-09] MEDS ORDERED: LORazepam Inj 2mg/ml 1ml IV ONE (16:45)
[2016-06-09] MEDS ORDERED: levETIRAcetam 500mg vial IV ONE (16:51)
[2016-06-09 17:18] LABS: EOSINOPHILS % (AUTO) 2.3 % (0.0-3.0); LYMPHOCYTES % (AUTO) 25.6 % (20.0-45.0); MEAN CORPUSCULAR HEMOGLOBIN 27.5 PG (27.0-31.0); MEAN CORPUSCULAR HGB CONC 31.7 G/DL (32.0-36.0); MEAN CORPUSCULAR VOLUME 87 FL (80-99); MEAN PLATELET VOLUME 7.3 FL (6.5-10.1); MONOCYTES % (AUTO) 12.6 % (1.0-10.0); NEUTROPHILS % (AUTO) 57.6 % (45.0-75.0); PLATELET COUNT 210 K/UL (150-450); RED CELL DISTRIBUTION WIDTH 15.5 % (11.6-14.8); WHITE BLOOD COUNT 6.9 K/UL (4.8-10.8)
[2016-06-09 17:21] VITALS: BP 135/90
[2016-06-09 17:27] LABS: ALANINE AMINOTRANSFERASE 7 U/L (3-41); ALBUMIN/GLOBULIN RATIO 0.9 (1.0-2.7); ALCOHOL < 10 mg/dL; ANION GAP 20 (5-15); ASPARTATE AMINO TRANSFERASE 18 U/L (5-40); CALCIUM 9.3 mg/dL (8.6-10.2); CARBON DIOXIDE 22 mEQ/L (20-30); CHLORIDE 93 mEQ/L (98-107); CREATININE 1.8 mg/dL (0.7-1.2); HEMOLYSIS 25; POTASSIUM 4.3 mEQ/L (3.4-4.9); SODIUM 135 mEQ/L (135-145); TOTAL PROTEIN 8.7 g/dL (6.6-8.7)
[2016-06-09 17:50] LABS: APPEARANCE,URINE CLEAR; KETONES,URINE NEGATIVE (NEGATIVE); LEUKOCYTE ESTERASE ,URINE 1+ (NEGATIVE); NITRITE,URINE NEGATIVE (NEGATIVE); PH,URINE 5 (4.5-8.0); PROTEIN,URINE 2+ (NEGATIVE); UROBILINOGEN,URINE NORMAL MG/DL (0.0-1.0)
[2016-06-09 18:01] LABS: BACTERIA,URINE FEW /HPF
[2016-06-09] MEDS ORDERED: Valproate Sodium INJ 750 MG in D5W 47.5 ML IVPB ONE (18:15)
--- NOTE | 2016-06-09 18:43 | Neurology Progress Note ---
Objective Physical Exam Last Vital Signs Date Time Temp Pulse Resp B/P Pulse Ox O2 Delivery O2 Flow Rate FiO2 06/09/16 17:21 98.7 90 17 135/90 100 Nasal Cannula 2.0 Laboratory Tests Test 06/09/16 16:57 06/09/16 17:26 White Blood Count 6.9 K/UL (4.8-10.8) Red Blood Count 4.20 M/UL (4.70-6.10) L Hemoglobin 11.6 G/DL (14.2-18.0) L Hematocrit 36.5 % (42.0-52.0) L Mean Corpuscular Volume 87 FL (80-99) Mean Corpuscular Hemoglobin 27.5 PG (27.0-31.0) Mean Corpuscular Hemoglobin Concent 31.7 G/DL (32.0-36.0) L Red Cell Distribution Width 15.5 % (11.6-14.8) H Platelet Count 210 K/UL (150-450) Mean Platelet Volume 7.3 FL (6.5-10.1) Neutrophils (%) (Auto) 57.6 % (45.0-75.0) Lymphocytes (%) (Auto) 25.6 % (20.0-45.0) Monocytes (%) (Auto) 12.6 % (1.0-10.0) H Eosinophils (%) (Auto) 2.3 % (0.0-3.0) Basophils (%) (Auto) 2.0 % (0.0-2.0) Sodium Level 135 mEQ/L (135-145) Potassium Level 4.3 mEQ/L (3.4-4.9) Chloride Level 93 mEQ/L (98-107) L Carbon Dioxide Level 22 mEQ/L (20-30) Anion Gap 20 (5-15) H Blood Urea Nitrogen 13 mg/dL (7-23) Creatinine 1.8 mg/dL (0.7-1.2) H Estimat Glomerular Filtration Rate mL/min (>60) Glucose Level 104 mg/dL (74-106) Calcium Level 9.3 mg/dL (8.6-10.2) Total Bilirubin 0.4 mg/dL (0.0-1.2) Aspartate Amino Transf (AST/SGOT) 18 U/L (5-40) Alanine Aminotransferase (ALT/SGPT) 7 U/L (3-41) Alkaline Phosphatase 76 U/L (40-129) Total Protein 8.7 g/dL (6.6-8.7) Albumin 4.3 g/dL (3.5-5.2) Globulin 4.4 g/dL Albumin/Globulin Ratio 0.9 (1.0-2.7) L Serum Alcohol < 10 mg/dL Urine Color Pale yellow Urine Appearance Clear Urine pH 5 (4.5-8.0) Urine Specific [place] 1.015 (1.005-1.035) Urine Protein 2+ (NEGATIVE) H Urine Glucose (UA) Negative (NEGATIVE) Urine Ketones Negative (NEGATIVE) Urine Occult Blood Negative (NEGATIVE) Urine Nitrite Negative (NEGATIVE) Urine Bilirubin Negative (NEGATIVE) Urine Urobilinogen Normal MG/DL (0.0-1.0) Urine Leukocyte Esterase 1+ (NEGATIVE) H Urine RBC 2-4 /HPF (0 - 0) H Urine WBC 5-10 /HPF (0 - 0) H Urine Squamous Epithelial Cells None /LPF (NONE/OCC) Urine Bacteria Few /HPF (NONE) Impression/Recommendations Problems: (1) partial complex sz , exacerbation (2) stroke L MCA, subacute, ischemic (3) Vascular dementia with behavior disturbance (4) Afib Status: unchanged Recommendations #[id number] DARON SO Jun 09, 2016 18:42
[2016-06-09 19:31] VITALS: BP 147/79
[2016-06-09] MEDS ORDERED: cefTRIAXone 1 GM in D5W 55 ML IVPB ONE (19:45)
[2016-06-09 20:45] VITALS: BP 139/73
[2016-06-09] MEDS ORDERED: traMADol 50mg tab ORAL PRN (21:15)
[2016-06-09] MEDS ORDERED: LORazepam Inj 2mg/ml 1ml IV PRN (21:15)
[2016-06-09] MEDS ORDERED: Albuterol ud Inhalation HHN PRN (21:15)
[2016-06-09] MEDS ORDERED: Acetaminophen 650mg/20.3ml ORAL PRN (21:15)
[2016-06-09] MEDS: HydrALAZINE 25mg tab ORAL SCH (22:54)
[2016-06-09] MEDS: Metoprolol 50mg tab ORAL SCH (22:55)
--- NOTE | 2016-06-09 23:18 | Consultation ---
DATE OF CONSULTATION: 06/09/2016 NEUROLOGICAL CONSULTATION CONSULTING PHYSICIAN: Jose Blunt M.D. REFERRING PHYSICIAN: Ondina Geiger M.D. HISTORY OF PRESENT ILLNESS: The patient is a 80-year-old man, known to me from a previous evaluation, now presented with the exacerbation of seizure disorder. According to the patient's it is known that in the last few days the patient developed episodes of unresponsiveness. Since this morning, he had at least four generalized seizures. The patient was brought to my office for assessment and was observed to have some generalized seizure initiated with the shaking in his right upper extremity. He had a postictal confusion, and at that point the patient was taken to emergency room for further assessment and treatment. It is known that the patient who had a massive left hemispheric stroke 2 years ago developed the right hemiparesis and episodes of occasional recurrent seizure disorder. He was maintained on Keppra 1000 mg b.i.d. Further exacerbation of seizure activities in March, following which the dose of Keppra was increased up to 1500 mg b.i.d. With this his seizure activities were controlled. MRI of the brain revealed a focus of restriction in the area of previous infarct. EEG revealed generalized slowing with reduction in amplitude in left hemisphere. The patient was found to have atrial fibrillation with rapid ventricular response, treated with metoprolol, diltiazem, and digoxin. Curtis that the patient's stroke had some extension and this stabilized. Upon discharge, there were no further seizure activities until last few days. Following current admission, a CT of the brain was obtained and revealed old left MCA distribution infarct with no evidence of acute stroke. There is moderate atrophy and extensive ischemic cerebrovascular disease. Lab work was requested and now pending. PAST MEDICAL HISTORY: The patient has a history of cardiomyopathy with ejection fraction 25%; history of paroxysmal atrial fibrillation, maintained on Coumadin; history of seizure disorder; history of behavioral abnormalities; and chronic psychiatric disorder. Treatment include Depakote 125 mg b.i.d., Keppra, metoprolol, Seroquel, warfarin, diltiazem, digoxin, allopurinol, albuterol, and Ativan as needed. ALLERGIES: MARYANA inhibitors. SOCIAL HISTORY: The patient is a resident of [facility]. His is actively involved in the patient's care. FAMILY HISTORY: Noncontributory. REVIEW OF SYMPTOMS: The patient was unable to contribute to discussion. PHYSICAL EXAMINATION: GENERAL: This is a well-developed, well-nourished man, postictal and lethargic. VITAL SIGNS: His vital signs are stable. Blood pressure of 152/80 and heart rate of 118. While under observation at the emergency room, the patient had admitted additional episodes of seizure activity and was given sedation with Ativan on 2 occasions. His EKG showed atrial fibrillation, no PVC, and no ectopies. Chest x-ray, no consolidation and no effusion or pneumothorax. MUSCULOSKELETAL: Unremarkable with no deformities. Peripheral pulses 1+ symmetric. MENTAL STATUS: The patient is lethargic, briefly open eyes. CRANIAL NERVE II: Pupils both responding to light and accommodation. Visual anna not tested, but appears right hemianopia. CRANIAL NERVE V: Normal corneal response. CRANIAL NERVE VII: Drooped right nasolabial fold. CRANIAL NERVE VIII: Decreased hearing. CRANIAL NERVE IX THROUGH XII: Reduced gag response. MOTOR EXAMINATION: Rigid right upper extremity with no spontaneous activity. Rigid right lower extremity, able to move right foot and bend his knee. Actively moving left upper and left lower extremity. Deep reflexes 2+ on the right and 1+ on the left. Positive Babinski in the right sensory exam. No response to pin stimulation. Gait not tested. IMPRESSION: The patient is a 80-year-old man with, 1. Chronic seizure disorder, now presenting with exacerbation, breakthrough episode. 2. 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 3. Hypertension. 4. Hypothyroidism. 5. Chronic obstructive pulmonary disease. 6. Chronic renal insufficiency. 7. Paroxysmal atrial fibrillation. RECOMMENDATION: The patient presented with breakthrough seizure activities. He will continue with Keppra 1500 mg b.i.d. and now adding Depakote 500 mg twice a day, loading dose of 750 mg IVPB. We will observe for any paroxysmal events. Reevaluate in the a.m. if necessary. We will obtain additional diagnostic studies including EEG to rule out ongoing seizure event. The patient's status discussed with the ED attending and with the patient's . Thank you for allowing me to see this interesting patient in neurological consultation. Jose Blunt M.D. DR: SHUKRI JOB#: [id number] CC:
[2016-06-09 23:42] LABS: PROTHROMBIN TIME 31.5 SEC (9.30-11.50)
[2016-06-10] VITALS: BP 140/84
[2016-06-10 04:00] VITALS: BP 149/72
[2016-06-10 05:42] LABS: BASOPHILS % (AUTO) 1.2 % (0.0-2.0); EOSINOPHILS % (AUTO) 4.6 % (0.0-3.0); LYMPHOCYTES % (AUTO) 30.2 % (20.0-45.0); MEAN CORPUSCULAR HEMOGLOBIN 27.4 PG (27.0-31.0); MEAN CORPUSCULAR HGB CONC 31.6 G/DL (32.0-36.0); MEAN CORPUSCULAR VOLUME 87 FL (80-99); MEAN PLATELET VOLUME 8.2 FL (6.5-10.1); MONOCYTES % (AUTO) 17.8 % (1.0-10.0); NEUTROPHILS % (AUTO) 46.3 % (45.0-75.0); PLATELET COUNT 187 K/UL (150-450); RED BLOOD COUNT 3.46 M/UL (4.70-6.10); RED CELL DISTRIBUTION WIDTH 15.7 % (11.6-14.8); WHITE BLOOD COUNT 4.9 K/UL (4.8-10.8)
[2016-06-10 06:20] LABS: ALANINE AMINOTRANSFERASE 5 U/L (3-41); ALBUMIN/GLOBULIN RATIO 0.8 (1.0-2.7); ANION GAP 15 (5-15); ASPARTATE AMINO TRANSFERASE 12 U/L (5-40); CALCIUM 8.5 mg/dL (8.6-10.2); CARBON DIOXIDE 23 mEQ/L (20-30); CHLORIDE 101 mEQ/L (98-107); CREATININE 1.4 mg/dL (0.7-1.2); HEMOLYSIS 2; POTASSIUM 3.9 mEQ/L (3.4-4.9); SODIUM 139 mEQ/L (135-145); TOTAL PROTEIN 6.9 g/dL (6.6-8.7)
[2016-06-10] MEDS: HydrALAZINE 25mg tab ORAL SCH ×3 (07:15→21:35)
[2016-06-10] MEDS: Metoprolol 50mg tab ORAL SCH ×3 (07:16→21:35)
[2016-06-10 08:00] VITALS: BP 142/83
--- NOTE | 2016-06-10 08:56 | Diagnostic Imaging Report ---
Indications: Altered mental status Technique: Spiral acquisitions obtained through the brain. Angled axial and coronal 5 x 5 mm slices were reconstructed. Total dose length product 1397 mGycm. CTDI vol(s) 70 mGy Comparison: 04/21/2016 Findings: There is an area of encephalomalacia involving the left occipital lobe extending into the adjacent parietal lobe.. There is resultant ex vacuo dilatation of the atrium of the left lateral ventricle. This is similar to the previous exam. There is age-related enlargement of ventricles and extra-axial CSF spaces. There is periventricular deep white matter chronic ischemic change. No acute hemorrhage or edema. No mass effect or midline shift. A calcification in the subependymal region adjacent to the frontal horn of the right lateral ventricle is noted. The calvarium is intact. Visualized orbits are unremarkable. There is ethmoid sinus disease again demonstrated. There is no significant interim change Impression: Old left occipital infarct Other chronic and age-related changes, as described Negative for acute intracranial bleed or mass effect Subependymal calcification in the right frontal region, of uncertain significance, probably postinflammatory or dystrophic. This agrees with the preliminary interpretation provided overnight by Dr. Loya The CT scanner at [facility] is accredited by the [employer] and the scans are performed using protocols designed to limit radiation exposure to as low as reasonably achievable to attain images of sufficient resolution adequate for diagnostic evaluation.
[2016-06-10] MEDS: Diltiazem CD 240mg cap ORAL SCH (08:58)
[2016-06-10] MEDS: Digoxin 0.125mg tab ORAL SCH (08:59)
[2016-06-10] MEDS ORDERED: Depakote 125mg Sprinkles ORAL SCH (09:00)
--- NOTE | 2016-06-10 10:08 | History & Physical ---
History and Physical History & Physicial Dict #[id number] Ondina Geiger MD Jun 10, 2016 10:08
--- NOTE | 2016-06-10 10:11 | General Progress Note ---
Assessment/Plan Status: stable Assessment/Plan 1- Status Epilepticus/ Break through Sz 2- CVA 3- Afib 4- CHF- Preserved ER 5- HTN 6- A/C RF 7- GI-DVT prohpylaxia Plan: Neurology consulted. current management. Subjective ROS Limited/Unobtainable: Yes - awake, but disoriented Allergies: Coded Allergies: MARYANA INHIBITORS (Unverified Allergy, Unknown, 01/31/14) ARB-ANGIOTENSIN RECEPTOR ANTAGONIST (Unverified Allergy, Unknown, 01/31/14) Objective Last 24 Hour Vital Signs Date Time Temp Pulse Resp B/P Pulse Ox O2 Delivery O2 Flow Rate FiO2 06/10/16 08:59 82 06/10/16 08:58 82 142/83 06/10/16 08:00 97.3 82 21 142/83 100 Nasal Cannula 2.0 06/10/16 07:16 79 149/74 06/10/16 07:15 149/74 06/10/16 07:15 149/74 06/10/16 04:00 98.2 86 20 149/72 95 Nasal Cannula 06/10/16 03:50 95 06/10/16 00:08 90 06/10/16 00:00 97.7 75 18 140/84 99 Nasal Cannula 06/09/16 20:45 96.4 89 18 139/73 100 Nasal Cannula 2.0 06/09/16 20:01 98.2 81 16 147/79 100 Nasal Cannula 2.0 06/09/16 19:31 98.2 81 16 147/79 100 Nasal Cannula 2.0 06/09/16 17:21 98.7 90 17 135/90 100 Nasal Cannula 2.0 06/09/16 16:59 91 20 Room Air 06/09/16 16:26 118 20 152/80 100 Room Air Intake and Output 06/09/16 06/10/16 19:00 07:00 Intake Total 215 ml Output Total 50 ml Balance 165 ml Intake IV Total 115 ml Other 100 ml Output Urine Total 50 ml # Voids 1 4 Laboratory Tests 06/09/16 16:57: White Blood Count 6.9, Red Blood Count 4.20L, Hemoglobin 11.6L, Hematocrit 36.5L , Mean Corpuscular Volume 87, Mean Corpuscular Hemoglobin 27.5, Mean Corpuscular Hemoglobin Concent 31.7L, Red Cell Distribution Width 15.5H, Platelet Count 210, Mean Platelet Volume 7.3, Neutrophils (%) (Auto) 57.6, Lymphocytes (%) (Auto) 25.6, Monocytes (%) (Auto) 12.6H, Eosinophils (%) (Auto) 2.3, Basophils (%) (Auto) 2.0, Prothrombin Time 31.5H, Prothromb Time International Ratio 3.0H, Sodium Level 135, Potassium Level 4.3, Chloride Level 93L, Carbon Dioxide Level 22, Anion Gap 20H, Blood Urea Nitrogen 13, Creatinine 1.8H, Estimat Glomerular Filtration Rate , Glucose Level 104, Calcium Level 9.3 , Total Bilirubin 0.4, Aspartate Amino Transf (AST/SGOT) 18, Alanine Aminotransferase (ALT/SGPT) 7, Alkaline Phosphatase 76, Total Protein 8.7, Albumin 4.3, Globulin 4.4, Albumin/Globulin Ratio 0.9L, Valproic Acid (Depakene ) Level 27L, Serum Alcohol < 10 06/09/16 17:26: Urine Color Pale yellow, Urine Appearance Clear, Urine pH 5, Urine Specific [place] 1.015, Urine Protein 2+H, Urine Glucose (UA) Negative, Urine Ketones Negative, Urine Occult Blood Negative, Urine Nitrite Negative, Urine Bilirubin Negative, Urine Urobilinogen Normal, Urine Leukocyte Esterase 1+H, Urine RBC 2- 4H, Urine WBC 5-10H, Urine Squamous Epithelial Cells None, Urine Bacteria Few 06/10/16 04:20: White Blood Count 4.9, Red Blood Count 3.46L, Hemoglobin 9.5L, Hematocrit 30.0L , Mean Corpuscular Volume 87, Mean Corpuscular Hemoglobin 27.4, Mean Corpuscular Hemoglobin Concent 31.6L, Red Cell Distribution Width 15.7H, Platelet Count 187, Mean Platelet Volume 8.2, Neutrophils (%) (Auto) 46.3, Lymphocytes (%) (Auto) 30.2, Monocytes (%) (Auto) 17.8H, Eosinophils (%) (Auto) 4.6H, Basophils (%) (Auto) 1.2, Sodium Level 139, Potassium Level 3.9, Chloride Level 101, Carbon Dioxide Level 23, Anion Gap 15, Blood Urea Nitrogen 11, Creatinine 1.4H, Estimat Glomerular Filtration Rate , Glucose Level 90, Calcium Level 8.5L, Total Bilirubin 0.3, Aspartate Amino Transf (AST/SGOT) 12, Alanine Aminotransferase (ALT/SGPT) 5, Alkaline Phosphatase 60, Total Protein 6.9, Albumin 3.1L, Globulin 3.8, Albumin/Globulin Ratio 0.8L, Levetiracetam (Keppra) Level [Pending] Height (Feet): 5 Height (Inches): 11.00 Weight (Pounds): 193 General Appearance: WD/WN EENT: PERRL/EOMI Neck: supple Cardiovascular: normal rate Respiratory/Chest: lungs clear Abdomen: soft Extremities: other - right hemiplegic, base line Neurologic: disoriented - slurred speech, at base line, other Ondina Geiger MD Jun 10, 2016 10:11
[2016-06-10 12:00] VITALS: BP 150/82
--- NOTE | 2016-06-10 12:00 | Neurology Progress Note ---
Interim History Interim History ROS Limited/Unobtainable: Yes - awake, but disoriented Complaints: headache Events: in AM noted shaking episode Objective Physical Exam Last Vital Signs Date Time Temp Pulse Resp B/P Pulse Ox O2 Delivery O2 Flow Rate FiO2 06/10/16 08:59 82 06/10/16 08:58 142/83 06/10/16 08:00 97.3 21 100 Nasal Cannula 2.0 06/10/16 07:58 28 Laboratory Tests Test 06/09/16 16:57 06/09/16 17:26 06/10/16 04:20 White Blood Count 6.9 K/UL (4.8-10.8) 4.9 K/UL (4.8-10.8) Red Blood Count 4.20 M/UL (4.70-6.10) L 3.46 M/UL (4.70-6.10) L Hemoglobin 11.6 G/DL (14.2-18.0) L 9.5 G/DL (14.2-18.0) L Hematocrit 36.5 % (42.0-52.0) L 30.0 % (42.0-52.0) L Mean Corpuscular Volume 87 FL (80-99) 87 FL (80-99) Mean Corpuscular Hemoglobin 27.5 PG (27.0-31.0) 27.4 PG (27.0-31.0) Mean Corpuscular Hemoglobin Concent 31.7 G/DL (32.0-36.0) L 31.6 G/DL (32.0-36.0) L Red Cell Distribution Width 15.5 % (11.6-14.8) H 15.7 % (11.6-14.8) H Platelet Count 210 K/UL (150-450) 187 K/UL (150-450) Mean Platelet Volume 7.3 FL (6.5-10.1) 8.2 FL (6.5-10.1) Neutrophils (%) (Auto) 57.6 % (45.0-75.0) 46.3 % (45.0-75.0) Lymphocytes (%) (Auto) 25.6 % (20.0-45.0) 30.2 % (20.0-45.0) Monocytes (%) (Auto) 12.6 % (1.0-10.0) H 17.8 % (1.0-10.0) H Eosinophils (%) (Auto) 2.3 % (0.0-3.0) 4.6 % (0.0-3.0) H Basophils (%) (Auto) 2.0 % (0.0-2.0) 1.2 % (0.0-2.0) Prothrombin Time 31.5 SEC (9.30-11.50) H Prothromb Time International Ratio 3.0 (0.9-1.1) H Sodium Level 135 mEQ/L (135-145) 139 mEQ/L (135-145) Potassium Level 4.3 mEQ/L (3.4-4.9) 3.9 mEQ/L (3.4-4.9) Chloride Level 93 mEQ/L (98-107) L 101 mEQ/L (98-107) Carbon Dioxide Level 22 mEQ/L (20-30) 23 mEQ/L (20-30) Anion Gap 20 (5-15) H 15 (5-15) Blood Urea Nitrogen 13 mg/dL (7-23) 11 mg/dL (7-23) Creatinine 1.8 mg/dL (0.7-1.2) H 1.4 mg/dL (0.7-1.2) H Estimat Glomerular Filtration Rate mL/min (>60) mL/min (>60) Glucose Level 104 mg/dL (74-106) 90 mg/dL (74-106) Calcium Level 9.3 mg/dL (8.6-10.2) 8.5 mg/dL (8.6-10.2) L Total Bilirubin 0.4 mg/dL (0.0-1.2) 0.3 mg/dL (0.0-1.2) Aspartate Amino Transf (AST/SGOT) 18 U/L (5-40) 12 U/L (5-40) Alanine Aminotransferase (ALT/SGPT) 7 U/L (3-41) 5 U/L (3-41) Alkaline Phosphatase 76 U/L (40-129) 60 U/L (40-129) Total Protein 8.7 g/dL (6.6-8.7) 6.9 g/dL (6.6-8.7) Albumin 4.3 g/dL (3.5-5.2) 3.1 g/dL (3.5-5.2) L Globulin 4.4 g/dL 3.8 g/dL Albumin/Globulin Ratio 0.9 (1.0-2.7) L 0.8 (1.0-2.7) L Valproic Acid (Depakene) Level 27 ug/mL (50-100) L Serum Alcohol < 10 mg/dL Urine Color Pale yellow Urine Appearance Clear Urine pH 5 (4.5-8.0) Urine Specific [place] 1.015 (1.005-1.035) Urine Protein 2+ (NEGATIVE) H Urine Glucose (UA) Negative (NEGATIVE) Urine Ketones Negative (NEGATIVE) Urine Occult Blood Negative (NEGATIVE) Urine Nitrite Negative (NEGATIVE) Urine Bilirubin Negative (NEGATIVE) Urine Urobilinogen Normal MG/DL (0.0-1.0) Urine Leukocyte Esterase 1+ (NEGATIVE) H Urine RBC 2-4 /HPF (0 - 0) H Urine WBC 5-10 /HPF (0 - 0) H Urine Squamous Epithelial Cells None /LPF (NONE/OCC) Urine Bacteria Few /HPF (NONE) Levetiracetam (Keppra) Level Pending General: well developed, well nourished, no acute distress Head: normocophalic, atraumatic Neck: no rigidity Neurologic Exam Mental Status: other - drowsy arousable, incoherent poor cooperation refused food Speech: other - poor verbal output Language: other - expressive aphasia Cranial Nerve II: fundus normal, visual anna, no papilledema Cranial Nerves III, IV, : PERRLA, EOMI, pupils Cranial Nerve V: normal facial sensations, temporales function normal, masseters function normal, pterygoids function normal Cranial Nerve VII: other - R droop Cranial Nerve VIII: normal hearing, no nystagmus Cranial Nerve IX: normal palate elevation, gag response, other - dysphasia Cranial Nerve XI: trapezii function normal Cranial Nerve XII: no tongue atrophy/fasciculations Motor System: other - R arm 1/5 R leg 2/5 spastic Sensory: other - R hemisensory loss Coordination: other Deep Tendon Reflexes: 1+ ankle (L), 1+ ankle (R), 1+ bicep (L), 1+ bicep (R), 1 + brachioradialis (L), 1+ brachioradialis (R), 1+ knee (L), 1+ knee (R), 1+ tricep (L), 1+ tricep (R) Reflexes: mute plantar (L), mute plantar (R) Impression/Recommendations Problems: (1) partial complex sz , exacerbation (2) stroke L MCA, subacute, ischemic (3) Vascular dementia with behavior disturbance (4) Afib Status: stable Recommendations #[id number] leppra 1500bid [id number] bid levels DARON SO Jun 10, 2016 12:00
[2016-06-10] MEDS: Depakote ER 500mg tab ORAL SCH ×2 (14:50→20:45)
[2016-06-10 15:41] LABS: INR 3.7 (0.9-1.1); PROTHROMBIN TIME 38.8 SEC (9.30-11.50)
[2016-06-10 16:00] VITALS: BP 131/8
[2016-06-10] MEDS: Ciprofloxacin Opth Soln LEFT EYE SCH ×2 (16:31→21:34)
[2016-06-10] MEDS ORDERED: Warfarin Sodium 1mg ORAL ONE (17:00)
--- NOTE | 2016-06-10 17:28 | History and Physical Report ---
DATE OF ADMISSION: 06/09/2016 SOURCE OF INFORMATION: The patient and EMR. HISTORY OF PRESENT ILLNESS: The patient is a pleasant 80-year-old male with a history of the right-sided hemiplegia. The patient had been admitted in the hospital recently with new diagnosis of seizure. Today, the patient had been transferred back to the hospital regarding the report of multiple episodes of myoclonic seizures as many as 20 for the last 48 hours. The patient was transferred from the Neurology office, Dr. Blunt for additional evaluation. PAST MEDICAL HISTORY: Chronic kidney disease stage 3-4, CVA with right hemiplegia, cardiomyopathy with preserved ejection fraction ( than the previous encounters), atrial fibrillation, neuropathic pain, dementia, seizure disorder (new diagnosis since prior to admission). PAST SURGICAL HISTORY: Denies. ALLERGIES: Wale Inhibitor. SOCIAL HISTORY: The [facility]. The patient denies any history of illicit drug abuse, smoking or alcohol abuse. The patient's is actively involved in the patient's care, who is the main point of contact for the last since last year. FAMILY HISTORY: Reviewed, noncontributory. COURSE OF EMERGENCY ROOM EVALUATION: The patient was admitted with stable vital signs. Initial evaluation included brain CT scan was unremarkable for acute pathology. PHYSICAL EXAMINATION: VITAL SIGNS: Blood pressure 140/80, temperature 98.2 degrees, pulse rate 110, pulse oximetry 98% on two liters of oxygen and respiratory rate 18-20. HEAD AND NECK: Atraumatic and normocephalic. CHEST: Clear to auscultation. HEART: S1 and S2. Regular rate and rhythm. ABDOMEN: Soft. No organomegaly. MUSCULOSKELETAL: Positive for right hemiplegia at baseline. NEUROLOGY: The patient is awake. Positive for at baseline, alert and oriented x2 at baseline. LABORATORY AND DIAGNOSTIC DATA: Lab results dated 06/09/2016 showed WBC 6.9, hemoglobin 11.6, and platelets 210,000. Sodium 135, potassium 4.5, BUN 13, and creatinine 1.8. AST 18 and ALT 7. INR is 3. Valproic acid 27. ASSESSMENT AND PLAN: 1. Breakthrough seizures/status epilepticus, with reported 20 episodes of myoclonic seizures within 48 hours. 2. Dementia. 3. Cerebrovascular accident with right hemiplegia. 4. Atrial fibrillation with controlled rate. 5. Congestive heart failure - diastolic with the preserved ejection fraction. 6. Hypothyroidism. 7. Hypertension. 8. Acute on chronic renal failure, back to baseline. 9. Benign prostatic hypertrophy. 10. Gastrointestinal and deep vein thrombosis prophylaxes. PLAN OF CARE: The patient has been already seen by Neurology, Dr. Blunt in the office. He did follow up with the patient. Resume with the current medications including valproic acid and Keppra. Ondina Geiger M.D. DR: ANGELIC JOB#: [id number] CC: HÉCTOR
[2016-06-10 20:00] VITALS: BP 147/77
[2016-06-10] MEDS: Tamsulosin 0.4mg cap ORAL SCH (20:45)
[2016-06-10] MEDS ORDERED: Depakote ER 500mg tab ORAL SCH (21:00)
[2016-06-11] VITALS: BP 142/76
[2016-06-11 04:00] VITALS: BP 116/62
[2016-06-11 05:07] LABS: BASOPHILS % (AUTO) 0.8 % (0.0-2.0); EOSINOPHILS % (AUTO) 6.3 % (0.0-3.0); LYMPHOCYTES % (AUTO) 29.8 % (20.0-45.0); MEAN CORPUSCULAR HEMOGLOBIN 28.2 PG (27.0-31.0); MEAN CORPUSCULAR HGB CONC 32.6 G/DL (32.0-36.0); MEAN CORPUSCULAR VOLUME 86 FL (80-99); MEAN PLATELET VOLUME 7.3 FL (6.5-10.1); MONOCYTES % (AUTO) 15.6 % (1.0-10.0); NEUTROPHILS % (AUTO) 47.5 % (45.0-75.0); PLATELET COUNT 176 K/UL (150-450); RED BLOOD COUNT 3.55 M/UL (4.70-6.10); RED CELL DISTRIBUTION WIDTH 15.7 % (11.6-14.8); WHITE BLOOD COUNT 5.2 K/UL (4.8-10.8)
[2016-06-11 05:15] LABS: INR 4.1 (0.9-1.1); PROTHROMBIN TIME 43.1 SEC (9.30-11.50)
[2016-06-11] MEDS: Ciprofloxacin Opth Soln LEFT EYE SCH ×4 (05:50→23:12)
[2016-06-11] MEDS: Metoprolol 50mg tab ORAL SCH ×4 (05:51→21:42)
[2016-06-11] MEDS: HydrALAZINE 25mg tab ORAL SCH ×4 (05:52→21:42)
[2016-06-11 06:10] LABS: ALANINE AMINOTRANSFERASE 5 U/L (3-41); ALBUMIN/GLOBULIN RATIO 0.9 (1.0-2.7); ANION GAP 16 (5-15); ASPARTATE AMINO TRANSFERASE 12 U/L (5-40); CALCIUM 8.5 mg/dL (8.6-10.2); CARBON DIOXIDE 23 mEQ/L (20-30); CHLORIDE 99 mEQ/L (98-107); CREATININE 1.4 mg/dL (0.7-1.2); HEMOLYSIS 1; POTASSIUM 3.9 mEQ/L (3.4-4.9); SODIUM 138 mEQ/L (135-145); TOTAL PROTEIN 6.5 g/dL (6.6-8.7)
[2016-06-11 08:00] VITALS: BP 141/78
[2016-06-11] MEDS: Digoxin 0.125mg tab ORAL SCH (08:12)
[2016-06-11] MEDS: Diltiazem CD 240mg cap ORAL SCH (08:12)
[2016-06-11] MEDS: Depakote ER 500mg tab ORAL SCH ×2 (08:13→21:35)
[2016-06-11 12:00] VITALS: BP 124/75
--- NOTE | 2016-06-11 12:50 | Neurology Progress Note ---
Interim History Interim History ROS Limited/Unobtainable: Yes - awake, but disoriented Complaints: ok Events: no sz noted Objective Physical Exam Last Vital Signs Date Time Temp Pulse Resp B/P Pulse Ox O2 Delivery O2 Flow Rate FiO2 06/11/16 08:12 88 144/88 06/11/16 08:00 97.5 18 100 Nasal Cannula 2.0 06/11/16 06:34 28 Laboratory Tests Test 06/10/16 14:33 06/11/16 03:20 Prothrombin Time 38.8 SEC (9.30-11.50) H 43.1 SEC (9.30-11.50) H Prothromb Time International Ratio 3.7 (0.9-1.1) H 4.1 (0.9-1.1) H White Blood Count 5.2 K/UL (4.8-10.8) Red Blood Count 3.55 M/UL (4.70-6.10) L Hemoglobin 10.0 G/DL (14.2-18.0) L Hematocrit 30.6 % (42.0-52.0) L Mean Corpuscular Volume 86 FL (80-99) Mean Corpuscular Hemoglobin 28.2 PG (27.0-31.0) Mean Corpuscular Hemoglobin Concent 32.6 G/DL (32.0-36.0) Red Cell Distribution Width 15.7 % (11.6-14.8) H Platelet Count 176 K/UL (150-450) Mean Platelet Volume 7.3 FL (6.5-10.1) Neutrophils (%) (Auto) 47.5 % (45.0-75.0) Lymphocytes (%) (Auto) 29.8 % (20.0-45.0) Monocytes (%) (Auto) 15.6 % (1.0-10.0) H Eosinophils (%) (Auto) 6.3 % (0.0-3.0) H Basophils (%) (Auto) 0.8 % (0.0-2.0) Sodium Level 138 mEQ/L (135-145) Potassium Level 3.9 mEQ/L (3.4-4.9) Chloride Level 99 mEQ/L (98-107) Carbon Dioxide Level 23 mEQ/L (20-30) Anion Gap 16 (5-15) H Blood Urea Nitrogen 10 mg/dL (7-23) Creatinine 1.4 mg/dL (0.7-1.2) H Estimat Glomerular Filtration Rate mL/min (>60) Glucose Level 87 mg/dL (74-106) Calcium Level 8.5 mg/dL (8.6-10.2) L Total Bilirubin 0.3 mg/dL (0.0-1.2) Aspartate Amino Transf (AST/SGOT) 12 U/L (5-40) Alanine Aminotransferase (ALT/SGPT) 5 U/L (3-41) Alkaline Phosphatase 59 U/L (40-129) Total Protein 6.5 g/dL (6.6-8.7) L Albumin 3.2 g/dL (3.5-5.2) L Globulin 3.3 g/dL Albumin/Globulin Ratio 0.9 (1.0-2.7) L Valproic Acid (Depakene) Level 59 ug/mL (50-100) General: well developed, well nourished, no acute distress Head: normocophalic, atraumatic Neck: no rigidity Neurologic Exam Mental Status: other - awake smiling Speech: other - poor verbal output Language: other - expressive aphasia Cranial Nerve II: fundus normal, visual anna, no papilledema Cranial Nerves III, IV, : PERRLA, EOMI, pupils Cranial Nerve V: normal facial sensations, temporales function normal, masseters function normal, pterygoids function normal Cranial Nerve VII: other - R droop Cranial Nerve VIII: normal hearing, no nystagmus Cranial Nerve IX: normal palate elevation, gag response, other - dysphasia Cranial Nerve XI: trapezii function normal Cranial Nerve XII: no tongue atrophy/fasciculations Motor System: other - R arm 1/5 R leg 2/5 spastic Sensory: other - R hemisensory loss Coordination: other Deep Tendon Reflexes: 1+ ankle (L), 1+ ankle (R), 1+ bicep (L), 1+ bicep (R), 1 + brachioradialis (L), 1+ brachioradialis (R), 1+ knee (L), 1+ knee (R), 1+ tricep (L), 1+ tricep (R) Reflexes: mute plantar (L), mute plantar (R) Impression/Recommendations Problems: (1) partial complex sz , exacerbation (2) stroke L MCA, subacute, ischemic (3) Vascular dementia with behavior disturbance (4) Afib Status: doing well, stable Recommendations #[id number] Keppra 1500bid [id number] bid levels neuro stable for d/c SNF DARON SO Jun 11, 2016 12:50
--- NOTE | 2016-06-11 12:54 | General Progress Note ---
Assessment/Plan Status: stable Assessment/Plan 1- Status Epilepticus/ Break through Sz 2- CVA 3- Afib 4- CHF- Preserved ER 5- HTN 6- A/C RF 7- GI-DVT prohpylaxia Plan: Discharge pending to Neuro clearance Subjective ROS Limited/Unobtainable: Yes Allergies: Coded Allergies: MARYANA INHIBITORS (Unverified Allergy, Unknown, 01/31/14) ARB-ANGIOTENSIN RECEPTOR ANTAGONIST (Unverified Allergy, Unknown, 01/31/14) Objective Last 24 Hour Vital Signs Date Time Temp Pulse Resp B/P Pulse Ox O2 Delivery O2 Flow Rate FiO2 06/11/16 08:12 88 144/88 06/11/16 08:12 88 06/11/16 08:00 102 06/11/16 08:00 97.5 77 18 141/78 100 Nasal Cannula 2.0 06/11/16 06:34 95 Nasal Cannula 2.0 28 06/11/16 06:34 Nasal Cannula 2.0 28 06/11/16 05:52 119/68 06/11/16 05:51 106 119/68 06/11/16 05:51 119/68 06/11/16 04:00 98.1 103 20 116/62 100 Nasal Cannula 2.0 06/11/16 04:00 89 06/11/16 00:00 87 06/11/16 00:00 97.7 62 20 142/76 100 Nasal Cannula 2.0 06/10/16 21:35 89 147/77 06/10/16 21:35 147/77 06/10/16 21:34 147/77 06/10/16 20:00 93 06/10/16 20:00 98.0 89 18 147/77 97 Nasal Cannula 2.0 06/10/16 19:00 Nasal Cannula 2.0 28 06/10/16 19:00 96 Nasal Cannula 2.0 28 06/10/16 16:00 97.7 66 18 131/8 97 Nasal Cannula 2.0 06/10/16 16:00 94 06/10/16 13:46 84 150/82 06/10/16 13:46 150/82 06/10/16 13:45 150/82 Intake and Output 06/10/16 06/11/16 19:00 07:00 # Voids 1 Laboratory Tests 06/10/16 14:33: Prothrombin Time 38.8H, Prothromb Time International Ratio 3.7H 06/11/16 03:20: Prothrombin Time 43.1H, Prothromb Time International Ratio 4.1H, White Blood Count 5.2, Red Blood Count 3.55L, Hemoglobin 10.0L, Hematocrit 30.6L, Mean Corpuscular Volume 86, Mean Corpuscular Hemoglobin 28.2, Mean Corpuscular Hemoglobin Concent 32.6, Red Cell Distribution Width 15.7H, Platelet Count 176, Mean Platelet Volume 7.3, Neutrophils (%) (Auto) 47.5, Lymphocytes (%) (Auto) 29.8, Monocytes (%) (Auto) 15.6H, Eosinophils (%) (Auto) 6.3H, Basophils (%) ( Auto) 0.8, Sodium Level 138, Potassium Level 3.9, Chloride Level 99, Carbon Dioxide Level 23, Anion Gap 16H, Blood Urea Nitrogen 10, Creatinine 1.4H, Estimat Glomerular Filtration Rate , Glucose Level 87, Calcium Level 8.5L, Total Bilirubin 0.3, Aspartate Amino Transf (AST/SGOT) 12, Alanine Aminotransferase (ALT/SGPT) 5, Alkaline Phosphatase 59, Total Protein 6.5L, Albumin 3.2L, Globulin 3.3, Albumin/Globulin Ratio 0.9L, Valproic Acid (Depakene ) Level 59 Height (Feet): 5 Height (Inches): 11.00 Weight (Pounds): 193 General Appearance: no apparent distress EENT: PERRL/EOMI Neck: supple Cardiovascular: normal rate Respiratory/Chest: lungs clear Abdomen: soft Extremities: other - right hemiplegia at base line Neurologic: disoriented, other - slurred speech at base line Ondina Geiger MD Jun 11, 2016 12:54
[2016-06-11 16:00] VITALS: BP 101/60
[2016-06-11 19:00] VITALS: BP 128/71
[2016-06-11] MEDS: Tamsulosin 0.4mg cap ORAL SCH (21:35)
[2016-06-12] VITALS (7 sets, daily range): BP systolic 105–132; BP diastolic 59–85
[2016-06-12] MEDS: Metoprolol 50mg tab ORAL SCH ×3 (06:00→22:20)
[2016-06-12] MEDS: HydrALAZINE 25mg tab ORAL SCH ×3 (06:00→22:19)
[2016-06-12 06:16] LABS: BASOPHILS % (AUTO) 1.1 % (0.0-2.0); EOSINOPHILS % (AUTO) 4.8 % (0.0-3.0); MEAN CORPUSCULAR HEMOGLOBIN 28.1 PG (27.0-31.0); MEAN CORPUSCULAR HGB CONC 32.2 G/DL (32.0-36.0); MEAN CORPUSCULAR VOLUME 87 FL (80-99); MONOCYTES % (AUTO) 16.1 % (1.0-10.0); NEUTROPHILS % (AUTO) 42.1 % (45.0-75.0); PLATELET COUNT 177 K/UL (150-450); RED BLOOD COUNT 3.42 M/UL (4.70-6.10); RED CELL DISTRIBUTION WIDTH 15.6 % (11.6-14.8); WHITE BLOOD COUNT 5.6 K/UL (4.8-10.8)
[2016-06-12] MEDS: Ciprofloxacin Opth Soln LEFT EYE SCH ×3 (06:20→22:18)
[2016-06-12 06:39] LABS: ALANINE AMINOTRANSFERASE 5 U/L (3-41); ALBUMIN/GLOBULIN RATIO 0.9 (1.0-2.7); ANION GAP 16 (5-15); ASPARTATE AMINO TRANSFERASE 11 U/L (5-40); CALCIUM 8.3 mg/dL (8.6-10.2); CARBON DIOXIDE 23 mEQ/L (20-30); CHLORIDE 99 mEQ/L (98-107); CREATININE 1.7 mg/dL (0.7-1.2); HEMOLYSIS 4; POTASSIUM 4.1 mEQ/L (3.4-4.9); SODIUM 138 mEQ/L (135-145); TOTAL PROTEIN 6.3 g/dL (6.6-8.7)
[2016-06-12 07:12] LABS: INR 5.5 (0.9-1.1)
[2016-06-12] MEDS: Depakote ER 500mg tab ORAL SCH (11:18)
[2016-06-12] MEDS: Diltiazem CD 240mg cap ORAL SCH (11:19)
[2016-06-12] MEDS: Digoxin 0.125mg tab ORAL SCH (11:20)
--- NOTE | 2016-06-12 12:17 | General Progress Note ---
Assessment/Plan Status: stable Assessment/Plan 1- Status Epilepticus/ Break through Sz 2- CVA 3- Afib 4- CHF- Preserved ER 5- HTN 6- A/C RF 7- GI-DVT prohpylaxia Plan: Supra therapeutic INR Discharge pending to Neuro clearance and INR at least trending down Subjective ROS Limited/Unobtainable: Yes Allergies: Coded Allergies: MARYANA INHIBITORS (Unverified Allergy, Unknown, 01/31/14) ARB-ANGIOTENSIN RECEPTOR ANTAGONIST (Unverified Allergy, Unknown, 01/31/14) Objective Last 24 Hour Vital Signs Date Time Temp Pulse Resp B/P Pulse Ox O2 Delivery O2 Flow Rate FiO2 06/12/16 11:20 105 06/12/16 11:19 105 105/61 06/12/16 08:00 97.3 78 20 126/59 100 Nasal Cannula 2.0 06/12/16 07:55 53 18 Nasal Cannula 2.0 06/12/16 07:53 Nasal Cannula 2.0 06/12/16 07:52 99 Nasal Cannula 2.0 06/12/16 06:00 61 105/61 06/12/16 06:00 105/61 06/12/16 06:00 105/61 06/12/16 04:00 91 06/12/16 04:00 97.3 61 20 105/61 100 Nasal Cannula 2.0 06/12/16 00:00 77 06/12/16 00:00 97.7 85 20 114/60 98 Nasal Cannula 98.0 06/11/16 21:42 60 128/71 06/11/16 21:42 128/71 06/11/16 21:42 128/71 06/11/16 20:00 98 06/11/16 19:45 Nasal Cannula 2.0 28 06/11/16 19:45 60 20 Nasal Cannula 2.0 28 06/11/16 19:44 98 Nasal Cannula 2.0 28 06/11/16 19:00 97.5 71 20 128/71 100 Nasal Cannula 2.0 06/11/16 16:00 75 06/11/16 16:00 97.3 92 20 101/60 98 Nasal Cannula 2.0 06/11/16 13:01 92 142/82 06/11/16 13:00 140/82 06/11/16 13:00 140/82 Intake and Output 06/11/16 06/12/16 19:00 07:00 Intake Total 120 ml Output Total 500 ml Balance -500 ml 120 ml Intake Oral 120 ml Output Urine Total 500 ml # Voids 2 6 Laboratory Tests 06/12/16 05:30: White Blood Count 5.6, Red Blood Count 3.42L, Hemoglobin 9.6L, Hematocrit 29.8L , Mean Corpuscular Volume 87, Mean Corpuscular Hemoglobin 28.1, Mean Corpuscular Hemoglobin Concent 32.2, Red Cell Distribution Width 15.6H, Platelet Count 177, Mean Platelet Volume 8.0, Neutrophils (%) (Auto) 42.1L, Lymphocytes (%) (Auto) 36.0, Monocytes (%) (Auto) 16.1H, Eosinophils (%) (Auto) 4.8H, Basophils (%) (Auto) 1.1, Prothrombin Time 59.0H, Prothromb Time International Ratio 5.5*H, Sodium Level 138, Potassium Level 4.1, Chloride Level 99, Carbon Dioxide Level 23, Anion Gap 16H, Blood Urea Nitrogen 11, Creatinine 1.7H, Estimat Glomerular Filtration Rate , Glucose Level 85, Calcium Level 8.3L, Total Bilirubin 0.2, Aspartate Amino Transf (AST/SGOT) 11, Alanine Aminotransferase (ALT/SGPT) 5, Alkaline Phosphatase 58, Total Protein 6.3L, Albumin 3.0L, Globulin 3.3, Albumin/Globulin Ratio 0.9L Height (Feet): 5 Height (Inches): 11.00 Weight (Pounds): 193 General Appearance: no apparent distress EENT: PERRL/EOMI Neck: supple Cardiovascular: normal rate Respiratory/Chest: lungs clear Abdomen: soft Neurologic: disoriented, other - sleeping most of the day. grossly demented Ondina Geiger MD Jun 12, 2016 12:17
--- NOTE | 2016-06-12 16:16 | Neurology Progress Note ---
Interim History Interim History ROS Limited/Unobtainable: Yes Complaints: ok Events: no sz noted Objective Physical Exam Last Vital Signs Date Time Temp Pulse Resp B/P Pulse Ox O2 Delivery O2 Flow Rate FiO2 06/12/16 15:06 108 131/67 06/12/16 12:00 97.3 20 100 Nasal Cannula 2.0 06/11/16 19:45 28 Laboratory Tests Test 06/12/16 05:30 White Blood Count 5.6 K/UL (4.8-10.8) Red Blood Count 3.42 M/UL (4.70-6.10) L Hemoglobin 9.6 G/DL (14.2-18.0) L Hematocrit 29.8 % (42.0-52.0) L Mean Corpuscular Volume 87 FL (80-99) Mean Corpuscular Hemoglobin 28.1 PG (27.0-31.0) Mean Corpuscular Hemoglobin Concent 32.2 G/DL (32.0-36.0) Red Cell Distribution Width 15.6 % (11.6-14.8) H Platelet Count 177 K/UL (150-450) Mean Platelet Volume 8.0 FL (6.5-10.1) Neutrophils (%) (Auto) 42.1 % (45.0-75.0) L Lymphocytes (%) (Auto) 36.0 % (20.0-45.0) Monocytes (%) (Auto) 16.1 % (1.0-10.0) H Eosinophils (%) (Auto) 4.8 % (0.0-3.0) H Basophils (%) (Auto) 1.1 % (0.0-2.0) Prothrombin Time 59.0 SEC (9.30-11.50) H Prothromb Time International Ratio 5.5 (0.9-1.1) *H Sodium Level 138 mEQ/L (135-145) Potassium Level 4.1 mEQ/L (3.4-4.9) Chloride Level 99 mEQ/L (98-107) Carbon Dioxide Level 23 mEQ/L (20-30) Anion Gap 16 (5-15) H Blood Urea Nitrogen 11 mg/dL (7-23) Creatinine 1.7 mg/dL (0.7-1.2) H Estimat Glomerular Filtration Rate mL/min (>60) Glucose Level 85 mg/dL (74-106) Calcium Level 8.3 mg/dL (8.6-10.2) L Total Bilirubin 0.2 mg/dL (0.0-1.2) Aspartate Amino Transf (AST/SGOT) 11 U/L (5-40) Alanine Aminotransferase (ALT/SGPT) 5 U/L (3-41) Alkaline Phosphatase 58 U/L (40-129) Total Protein 6.3 g/dL (6.6-8.7) L Albumin 3.0 g/dL (3.5-5.2) L Globulin 3.3 g/dL Albumin/Globulin Ratio 0.9 (1.0-2.7) L General: well developed, well nourished, no acute distress Head: normocophalic, atraumatic Neck: no rigidity Neurologic Exam Mental Status: other - awake smiling, more coherent Speech: other - poor verbal output Language: other - expressive aphasia Cranial Nerve II: fundus normal, visual anna, no papilledema Cranial Nerves III, IV, : PERRLA, EOMI, pupils Cranial Nerve V: normal facial sensations, temporales function normal, masseters function normal, pterygoids function normal Cranial Nerve VII: other - R droop Cranial Nerve VIII: normal hearing, no nystagmus Cranial Nerve IX: normal palate elevation, gag response, other - dysphasia Cranial Nerve XI: trapezii function normal Cranial Nerve XII: no tongue atrophy/fasciculations Motor System: other - R arm 1/5 R leg 2/5 spastic Sensory: other - R hemisensory loss Coordination: other Deep Tendon Reflexes: 1+ ankle (L), 1+ ankle (R), 1+ bicep (L), 1+ bicep (R), 1 + brachioradialis (L), 1+ brachioradialis (R), 1+ knee (L), 1+ knee (R), 1+ tricep (L), 1+ tricep (R) Reflexes: mute plantar (L), mute plantar (R) Impression/Recommendations Problems: (1) partial complex sz , exacerbation (2) stroke L MCA, subacute, ischemic (3) Vascular dementia with behavior disturbance (4) Afib Status: stable Recommendations #[id number] Keppra 1500bid [id number] bid levels neuro stable for d/c SNF no sz noted x 72 hrs DARON SO Jun 12, 2016 16:16
[2016-06-12] MEDS: levETIRAcetam 500mg/5ml Liquid ORAL SCH (21:53)
[2016-06-12] MEDS: Tamsulosin 0.4mg cap ORAL SCH (21:53)
[2016-06-12] MEDS: Depakote 125mg Sprinkles GT SCH (21:54)
[2016-06-13] VITALS: BP 113/60
[2016-06-13 04:00] VITALS: BP 128/67
[2016-06-13] MEDS: Metoprolol 50mg tab ORAL SCH ×3 (06:22→22:18)
[2016-06-13] MEDS: HydrALAZINE 25mg tab ORAL SCH ×3 (06:23→22:17)
[2016-06-13] MEDS: Ciprofloxacin Opth Soln LEFT EYE SCH ×3 (06:23→22:16)
[2016-06-13 06:56] LABS: INR 4.3 (0.9-1.1); PROTHROMBIN TIME 43.3 SEC (9.30-11.50)
[2016-06-13 08:00] VITALS: BP 132/84
--- NOTE | 2016-06-13 08:37 | General Progress Note ---
Assessment/Plan Status: stable Assessment/Plan 1- Status Epilepticus/ Break through Sz 2- CVA 3- Afib 4- CHF- Preserved ER 5- HTN 6- A/C RF 7- GI-DVT prohpylaxia Plan: Supra therapeutic INR Discharge to [facility] Subjective ROS Limited/Unobtainable: Yes Constitutional: Reports: no symptoms HEENT: Reports: no symptoms Allergies: Coded Allergies: MARYANA INHIBITORS (Unverified Allergy, Unknown, 01/31/14) ARB-ANGIOTENSIN RECEPTOR ANTAGONIST (Unverified Allergy, Unknown, 01/31/14) Objective Last 24 Hour Vital Signs Date Time Temp Pulse Resp B/P Pulse Ox O2 Delivery O2 Flow Rate FiO2 06/13/16 08:00 97 Nasal Cannula 2.0 28 06/13/16 08:00 Nasal Cannula 2.0 28 06/13/16 07:59 84 19 Nasal Cannula 2.0 28 06/13/16 06:23 128/67 06/13/16 06:23 128/67 06/13/16 06:22 81 128/67 06/13/16 04:00 97.7 80 18 128/67 97 Nasal Cannula 2.0 06/13/16 04:00 81 06/13/16 00:00 97.0 81 18 113/60 97 Nasal Cannula 2.0 06/13/16 00:00 77 06/12/16 23:14 59 18 Nasal Cannula 2.0 06/12/16 23:14 98 Nasal Cannula 2.0 06/12/16 23:14 Nasal Cannula 2.0 06/12/16 22:20 77 131/85 06/12/16 22:19 131/85 06/12/16 22:19 131/85 06/12/16 22:15 131/85 06/12/16 20:30 97.2 77 20 114/72 99 Nasal Cannula 2.0 06/12/16 20:00 78 06/12/16 16:35 97.2 79 18 132/73 98 Nasal Cannula 2.0 06/12/16 16:00 104 06/12/16 15:06 108 131/67 06/12/16 15:05 131/67 06/12/16 15:05 131/67 06/12/16 12:37 108 06/12/16 12:00 97.3 85 20 131/67 100 Nasal Cannula 2.0 06/12/16 11:20 105 06/12/16 11:19 105 105/61 Intake and Output 06/12/16 06/13/16 19:00 07:00 Intake Total 520 ml 120 ml Output Total 200 ml 440 ml Balance 320 ml -320 ml Intake Oral 520 ml 120 ml Output Urine Total 200 ml 440 ml # Voids 1 Laboratory Tests 06/13/16 05:35: Prothrombin Time 43.3H, Prothromb Time International Ratio 4.3H Height (Feet): 5 Height (Inches): 11.00 Weight (Pounds): 193 General Appearance: no apparent distress EENT: PERRL/EOMI Neck: supple Cardiovascular: normal rate Respiratory/Chest: lungs clear Abdomen: soft Extremities: other - right Hemiplegic Neurologic: disoriented, other - slurred speech at base line Ondina Geiger MD Jun 13, 2016 08:37
[2016-06-13] MEDS: Pantoprazole Inj IVP SCH (08:39)
[2016-06-13] MEDS: Digoxin 0.125mg tab ORAL SCH (08:40)
[2016-06-13] MEDS: Diltiazem CD 240mg cap ORAL SCH (08:40)
[2016-06-13] MEDS: Depakote 125mg Sprinkles GT SCH ×2 (08:41→20:56)
[2016-06-13] MEDS: levETIRAcetam 500mg/5ml Liquid ORAL SCH ×2 (09:04→20:55)
[2016-06-13 12:00] VITALS: BP 125/72
[2016-06-13] MEDS ORDERED: Sterile Water Irrig 1000ml IRRIG ONE (15:15)
[2016-06-13 16:00] VITALS: BP 125/65
[2016-06-13 20:00] VITALS: BP 128/78
[2016-06-13] MEDS: Tamsulosin 0.4mg cap ORAL SCH (20:56)
[2016-06-14] VITALS: BP 111/69
[2016-06-14 04:00] VITALS: BP 126/72
[2016-06-14] MEDS: Ciprofloxacin Opth Soln LEFT EYE SCH ×2 (06:11→14:49)
[2016-06-14] MEDS: Metoprolol 50mg tab ORAL SCH ×2 (06:12→14:50)
[2016-06-14] MEDS: HydrALAZINE 25mg tab ORAL SCH ×2 (06:13→14:50)
[2016-06-14 06:36] LABS: INR 3.6 (0.9-1.1); PROTHROMBIN TIME 36.2 SEC (9.30-11.50)
[2016-06-14 08:00] VITALS: BP 130/69
[2016-06-14] MEDS: Digoxin 0.125mg tab ORAL SCH (09:00)
[2016-06-14] MEDS: Depakote 125mg Sprinkles GT SCH (09:11)
[2016-06-14] MEDS: levETIRAcetam 500mg/5ml Liquid ORAL SCH (09:14)
[2016-06-14] MEDS: Pantoprazole Inj IVP SCH (09:15)
[2016-06-14] MEDS: Diltiazem CD 240mg cap ORAL SCH (09:18)
--- NOTE | 2016-06-14 10:31 | General Progress Note ---
Assessment/Plan Status: stable Assessment/Plan 1- Status Epilepticus/ Break through Sz 2- CVA 3- Afib 4- CHF- Preserved ER 5- HTN 6- A/C RF 7- GI-DVT prohpylaxia Plan: Supra therapeutic INR, will monitor as outpatient Discharge to [facility] today Subjective ROS Limited/Unobtainable: Yes - comfortable. patient at base line Allergies: Coded Allergies: MARYANA INHIBITORS (Unverified Allergy, Unknown, 01/31/14) ARB-ANGIOTENSIN RECEPTOR ANTAGONIST (Unverified Allergy, Unknown, 01/31/14) Objective Last 24 Hour Vital Signs Date Time Temp Pulse Resp B/P Pulse Ox O2 Delivery O2 Flow Rate FiO2 06/14/16 09:18 57 130/69 06/14/16 09:00 57 06/14/16 08:00 82 06/14/16 08:00 97.7 52 21 130/69 100 Nasal Cannula 2.0 06/14/16 07:35 100 Nasal Cannula 1.0 24 06/14/16 07:33 Nasal Cannula 1.0 24 06/14/16 07:32 70 18 Nasal Cannula 1.0 24 06/14/16 06:13 126/72 06/14/16 06:12 94 126/72 06/14/16 06:12 126/72 06/14/16 04:00 85 06/14/16 04:00 97.1 52 16 126/72 100 Nasal Cannula 2.0 06/14/16 00:00 97.9 69 16 111/69 98 Nasal Cannula 2.0 06/14/16 00:00 80 06/13/16 22:18 86 130/83 06/13/16 22:17 130/83 06/13/16 22:17 130/83 06/13/16 20:00 98.1 79 16 128/78 97 Nasal Cannula 2.0 06/13/16 20:00 64 06/13/16 19:00 100 Nasal Cannula 1.0 24 06/13/16 19:00 Nasal Cannula 1.0 24 06/13/16 19:00 74 18 Nasal Cannula 1.0 24 06/13/16 16:00 64 06/13/16 16:00 97.9 58 20 125/65 99 Nasal Cannula 2.0 06/13/16 13:11 125/72 06/13/16 13:10 72 125/72 06/13/16 13:10 125/72 06/13/16 12:00 74 06/13/16 12:00 98.2 72 16 125/72 96 Nasal Cannula 2.0 Intake and Output 06/13/16 06/14/16 19:00 07:00 Intake Total 120 ml Output Total 550 ml Balance 120 ml -550 ml Intake Oral 120 ml Output Urine Total 550 ml Laboratory Tests 06/14/16 04:50: Prothrombin Time 36.2H, Prothromb Time International Ratio 3.6H Height (Feet): 5 Height (Inches): 11.00 Weight (Pounds): 193 General Appearance: WD/WN EENT: PERRL/EOMI Neck: supple Cardiovascular: normal rate Respiratory/Chest: lungs clear Abdomen: soft Extremities: non-tender, other - Rt Hemiplegia Neurologic: disoriented Ondina Geiger MD Jun 14, 2016 10:31
[2016-06-14 12:00] VITALS: BP 140/67
[2016-06-14 16:00] VITALS: BP 110/61
--- NOTE | 2016-06-15 10:06 | Discharge Summary ---
Discharge Summary Hospital Course Date of Admission Jun 09, 2016 at 17:33 Date of Discharge Jun 14, 2016 at 18:00 Admitting Diagnosis recurrent seizures HPI Lone Latisha Ybarra is a 80 year old male who was admitted on Jun 09, 2016 at 17: 33 for Recurrent Seizures Hospital Course dc summary #[id number] Discharge Condition Upon Discharge: stable Discharge Disposition Patient was discharged to SNF/Subacute Facility(03) Discharge Diagnoses: Discharge Instructions Discharge Instructions Special Instructions I have been assigned to complete a D/C Summary on this account. I was not involved in the patient management Trish Hardy NP ([facility]anchtein) Jun 15, 2016 10:06
--- NOTE | 2016-06-15 11:49 | Cardiology Report ---
APPROVED REPORT EKG Measurement Heart [id number] Atrial fibrillation Voltage criteria for left ventricular hypertrophy Abnormal ECG
--- NOTE | 2016-06-15 23:09 | Discharge Summary 2 SIG ---
DATE OF ADMISSION: 06/09/2016 DATE OF DISCHARGE: 06/14/2016 REASON FOR ADMISSION: 80-year-old male was sent from the physician office after having witnessed seizures x4. The patient with with a history of seizure disorder, CVA, COPD, encephalopathy, and atrial fibrillation. CT of the head done in the emergency room revealed no acute intracranial pathology, but demonstrated evidence of old left occipital CVA. The patient has residual right hemiplegia. EKG revealed atrial fibrillation. Chest x-ray revealed no acute cardiopulmonary disease. The patient was started on Keppra. IV Ativan and IV Keppra wer given. Dr. Blunt, neurologist, was consulted for further management, who recommended additional IV Depakote, which was given in the emergency department (Depakote level was low, 27, upon presentation). Creatinine-1.8 The patient was admitted to the hospital to [facility] for further management. ADMITTING DIAGNOSES: 1. Status epileptic. 2. Convulsive generalized seizure disorder. 3. Atrial fibrillation. 4. Hypertension. 5. Chronic obstructive pulmonary disease. 6. History of cerebrovascular accident with right hemiplegia. 7. Congestive heart failure, diastolic, with preserved ejection fracture. 8. Acute renal failure on chronic kidney disease HOSPITAL STAY: The patient was admitted to [facility]. Neurology closely followed. Anticonvulsive medication regimen adjusted. Depakote level rechecked- 59. Serum alcohol level was negative initially on presentation. Creatinine improved. Evidence of chronic renal disease as well. Blood pressure was managed with hydralazine and beta-matthew and was stable. Hear rate was controlled with beta-matthew and digoxin. Anticoagulation with Coumadin. Supplemental oxygen. Pulmonary toilet provided as needed. No evidence of COPD exacerbation. Levothyroxine was continued. No evidence of CHF exacerbation. Prior echocardiogram revealed preserved ejection fraction. No evidence of seizure activity for 72 hours. Neurologist cleared him for discharge. DISCHARGE DIAGNOSES: 1. 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 2. 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 3. Vascular dementia with behavioral disturbances. 4. Atrial fibrillation. 5. Hypertension. 6. Chronic obstructive pulmonary disease. 7. Hypothyroidism. Acute on chronic kidney disease. 8. Congestive heart failure and diastolic dysfunction with preserved ejection fraction. DISCHARGE MEDICATIONS: See medication reconciliation list. DISCHARGE INSTRUCTIONS: [facility] Follow up with medical doctor at the facility. Ondina Geiger M.D. I have been assigned to dictate discharge summary on this account and I was not involved in the patient's management. Trish Hardy N.P. (Vanchtein) DR: RUTH JOB#: [id number] CC: HÉCTOR
== END 2016-06-14 18:00 | DRG 101 ==
LOC: EDBEDREQ 16:46 → EMR 17:30 → 2W 17:33 → EDBEDREQ 18:52
DX: G40.201 Localization-related (focal) (partial) symptomatic epilepsy and epileptic syndromes with complex partial seizures, not intractable, with status epilepticus (principal); N18.4 Chronic kidney disease, stage 4 (severe); I42.9 Cardiomyopathy, unspecified; F01.51 Vascular dementia, unspecified severity, with behavioral disturbance; I50.30 Unspecified diastolic (congestive) heart failure; N17.9 Acute kidney failure, unspecified; I69.351 Hemiplegia and hemiparesis following cerebral infarction affecting right dominant side; I48.0 Paroxysmal atrial fibrillation; I12.9 Hypertensive chronic kidney disease with stage 1 through stage 4 chronic kidney disease, or unspecified chronic kidney disease; R47.01 Aphasia; G40.901 Epilepsy, unspecified, not intractable, with status epilepticus; E03.9 Hypothyroidism, unspecified; N40.0 Benign prostatic hyperplasia without lower urinary tract symptoms; J44.9 Chronic obstructive pulmonary disease, unspecified; Z79.01 Long term (current) use of anticoagulants; Z88.8 Allergy status to other drugs, medicaments and biological substances
CPT/HCPCS: 36415; 70450; 80053; 80164; 80299; 80329; 81003; 85025; 85610; 87081; 93005; 94664; 94760

== ENCOUNTER 2017-08-26 14:54 | Inpatient (IN) | payer MEDICARE, MEDICAID ==
[~2017-08-26] VITALS: Ht 185.4 cm; Wt 89.8 kg
[2017-08-26] MEDS ORDERED: Sodium Chloride 500ML 500 ML IV ONE (15:26)
[2017-08-26] MEDS ORDERED: Ipratropium 0.02% Inh Soln 2.5ml UD HHN ONE (16:15)
[2017-08-26] MEDS ORDERED: Levalbuterol Inh UD 1.25mg/0.5ml HHN ONE (16:15)
[2017-08-26 16:21] LABS: BASOPHILS % (AUTO) 1.1 % (0.0-2.0); HEMATOCRIT 38.3 % (42.0-52.0); HEMOGLOBIN 12.7 G/DL (14.2-18.0); LYMPHOCYTES % (AUTO) 29.5 % (20.0-45.0); MEAN CORPUSCULAR VOLUME 88 FL (80-99); MONOCYTES % (AUTO) 18.7 % (1.0-10.0); NEUTROPHILS % (AUTO) 43.8 % (45.0-75.0); PLATELET COUNT 125 K/UL (150-450); RED BLOOD COUNT 4.36 M/UL (4.70-6.10); RED CELL DISTRIBUTION WIDTH 13.9 % (11.6-14.8); WHITE BLOOD COUNT 5.3 K/UL (4.8-10.8)
[2017-08-26 16:24] VITALS: BP 134/68
[2017-08-26 16:34] LABS: ANION GAP 11 mmol/L (5-15); BLOOD UREA NITROGEN 44 mg/dL (7-18); CALCIUM 8.9 MG/DL (8.5-10.1); CARBON DIOXIDE 24 MMOL/L (21-32); CHLORIDE 105 MMOL/L (98-107); CREATININE 2.5 MG/DL (0.55-1.30); POTASSIUM 5.1 MMOL/L (3.5-5.1); SODIUM 140 MMOL/L (136-145)
[2017-08-26 16:48] LABS: ALANINE AMINOTRANSFERASE 23 U/L (12-78); ALBUMIN 3.6 G/DL (3.4-5.0); ALBUMIN/GLOBULIN RATIO 0.6 (1.0-2.7); ALKALINE PHOSPHATASE 76 U/L (46-116); ASPARTATE AMINO TRANSFERASE 24 U/L (15-37); BILIRUBIN,TOTAL 0.4 MG/DL (0.2-1.0)
--- NOTE | 2017-08-26 17:13 | Diagnostic Imaging Report ---
Indication: Cough Comparison: 05/24/2016 A single view chest radiograph was obtained. Findings: Some mild vascular congestion demonstrated with cardiomegaly. Findings appear less severe than on the prior occasion. He IMPRESSION: Suspected mild interstitial edema. Correlate clinically
[2017-08-26] MEDS ORDERED: GUAIFENESI100 MG/5 M ORAL (17:39)
[2017-08-26] MEDS ORDERED: DEPAKOTE ER250 MG ORAL (17:39)
[2017-08-26] MEDS ORDERED: POLYVINYL ALCOH15 ML OP (17:41)
[2017-08-26] MEDS ORDERED: LORATADINE10 M2 PO (17:42)
--- NOTE | 2017-08-26 17:57 | Emergency Room Report ---
History of Present Illness General Chief Complaint: Upper Respiratory Illness Source: Patient Present Illness HPI 82-year-old male presents ED for evaluation of cough and congestion times one day. Started at [facility]. History of CHF. Denies fevers or chills. Denies chest pain. No other aggravating or relieving factors. 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 Hx COPD: Yes Hx Diabetes: No - hypothyroidism Hx Cancer: No Hx Gastrointestinal Problems: No Hx Dialysis: No - CKD Hx Neurological Problems: Yes - Encephalapathy,Neuralgia Hx Cerebrovascular Accident: Yes Hx Dementia: Yes Hx Seizures: Yes Hx Weakness: Yes Review of Systems All Other Systems: negative except mentioned in HPI Physical Exam Vital Signs Date Time Temp Pulse Resp B/P (MAP) Pulse Ox O2 Delivery O2 Flow Rate FiO2 08/26/17 14:52 97.8 62 20 111/66 95 Room Air 97.9 Sp02 EP Interpretation: reviewed, normal General Appearance: no apparent distress, alert, GCS 15, non-toxic Head: normocephalic, atraumatic Eyes: bilateral eye normal inspection, bilateral eye PERRL ENT: hearing 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, normal pharynx, no angioedema, normal voice Neck: full range of motion, supple/symm/no masses Respiratory: chest non-tender, crackles, speaking full sentences Cardiovascular #1: regular rate, rhythm, no edema Cardiovascular #2: 2+ carotid (R), 2+ carotid (L), 2+ radial (R), 2+ radial (L) , 2+ dorsalis pedis (R), 2+ dorsalis pedis (L) Gastrointestinal: normal bowel sounds, non tender, soft, non-distended, no guarding, no rebound Rectal: deferred Genitourinary: normal inspection, no CVA tenderness Musculoskeletal: back normal, gait/station normal, normal range of motion, non- tender Neurologic: alert, oriented x3, responsive, motor strength/tone normal, sensory intact, speech normal Psychiatric: judgement/insight normal, memory normal, mood/affect normal, no suicidal/homicidal ideation Reflexes: 3+ bicep (R), 3+ bicep (L), 3+ tricep (R), 3+ tricep (L), 3+ knee (R) , 3+ knee (L) Skin: normal color, no rash, warm/dry, well hydrated Lymphatic: no adenopathy Medical Decision Making Diagnostic Impression: Primary Impression: CHF exacerbation Qualified Codes: I50.9 - Heart failure, unspecified Additional Impression: ARF (acute renal failure) Qualified Codes: N17.9 - Acute kidney failure, unspecified ER Course Hospital Course 82-year-old male presents ED complaining of cough, congestion Differential diagnoses include: AZ/unstable angina, contusion, muscle strain, PTX, rib fracture Clinical course Patient placed on stretcher. on cardiac cath rn. After initial history and physical I ordered labs, EKG, chest x-ray, IVFs, nebs labs reviewed- no leukocytosis, hemoglobin/hematocrit stable, BUN/Cr elevated, trop negative x 1, BNP elevated Chest x-ray- pulmonary congestion. CHF EKG - afib with slow ventricular response, twaves in lateral leads Antibiotics given. Lasix given. Case discussed with Dr. Geiger and he agreed to accept the patient to his service for further care and support I. I feel this is a highly complex case requiring extensive working including EKG/Rhythm strip, Xray/CT/US, Blood/urine lab work, repeat exams while in ED, and administration of strong opiates/narcotics for pain control, admission to hospital or close patient follow up. Diagnosis - CHF exacerbation, renal failuere admitted to telemetry in serious condition Labs Test 08/26/17 15:50 White Blood Count 5.3 K/UL (4.8-10.8) Red Blood Count 4.36 M/UL (4.70-6.10) Hemoglobin 12.7 G/DL (14.2-18.0) Hematocrit 38.3 % (42.0-52.0) Mean Corpuscular Volume 88 FL (80-99) Mean Corpuscular Hemoglobin 29.2 PG (27.0-31.0) Mean Corpuscular Hemoglobin Concent 33.3 G/DL (32.0-36.0) Red Cell Distribution Width 13.9 % (11.6-14.8) Platelet Count 125 K/UL (150-450) Mean Platelet Volume 6.9 FL (6.5-10.1) Neutrophils (%) (Auto) 43.8 % (45.0-75.0) Lymphocytes (%) (Auto) 29.5 % (20.0-45.0) Monocytes (%) (Auto) 18.7 % (1.0-10.0) Eosinophils (%) (Auto) 7.0 % (0.0-3.0) Basophils (%) (Auto) 1.1 % (0.0-2.0) Sodium Level 140 MMOL/L (136-145) Potassium Level 5.1 MMOL/L (3.5-5.1) Chloride Level 105 MMOL/L (98-107) Carbon Dioxide Level 24 MMOL/L (21-32) Anion Gap 11 mmol/L (5-15) Blood Urea Nitrogen 44 mg/dL (7-18) Creatinine 2.5 MG/DL (0.55-1.30) Estimat Glomerular Filtration Rate mL/min (>60) Glucose Level 109 MG/DL (74-106) Lactic Acid Level 1.40 mmol/L (0.4-2.0) Calcium Level 8.9 MG/DL (8.5-10.1) Total Bilirubin 0.4 MG/DL (0.2-1.0) Aspartate Amino Transf (AST/SGOT) 24 U/L (15-37) Alanine Aminotransferase (ALT/SGPT) 23 U/L (12-78) Alkaline Phosphatase 76 U/L (46-116) Pro-B-Type Natriuretic Peptide 2804 pg/mL (0-125) Total Protein 9.4 G/DL (6.4-8.2) Albumin 3.6 G/DL (3.4-5.0) Globulin 5.8 g/dL Albumin/Globulin Ratio 0.6 (1.0-2.7) EKG Diagnostic Results Rate: bradycardiac Rhythm: other - afib ST Segments: other - twave inversions in lateral leads ASA given to the pt in ED: No Rhythm Strip Diag. Results EP Interpretation: yes Rhythm: no PVC's, no ectopy Chest X-Ray Diagnostic Results Chest X-Ray Diagnostic Results : Chest X-Ray Ordered: Yes # of Views/Limited/Complete: 1 View Indication: Shortness of Breath EP Interpretation: Yes Interpretation: no pneumothorax, other - cardiomegaly. chf Impression: Other - chf Electronically Signed by: Electronically signed by Juanjose Escobedo MD Last Vital Signs Date Time Temp Pulse Resp B/P (MAP) Pulse Ox O2 Delivery O2 Flow Rate FiO2 08/26/17 17:04 110 22 100 Room Air 08/26/17 16:24 97.9 134/68 97.9 Status: improved Disposition: ADMITTED INPATIENT Condition: Serious Referrals: Ondina Geiger MD (PCP) Juanjose Escobedo MD Aug 26, 2017 17:57
[2017-08-26 18:58] VITALS: BP 136/70
[2017-08-26 19:30] LABS: APPEARANCE,URINE CLEAR; BILIRUBIN, URINE NEGATIVE (NEGATIVE); COLOR,URINE PALE YELLOW; GLUCOSE, URINE (UA) NEGATIVE (NEGATIVE); KETONES,URINE NEGATIVE (NEGATIVE); LEUKOCYTE ESTERASE ,URINE NEGATIVE (NEGATIVE); NITRITE,URINE NEGATIVE (NEGATIVE); PH,URINE 5 (4.5-8.0); PROTEIN,URINE NEGATIVE (NEGATIVE); UROBILINOGEN,URINE NORMAL MG/DL (0.0-1.0)
[2017-08-26 20:20] VITALS: BP 132/70
[2017-08-26] MEDS ORDERED: Artificial Tears 1.4% Op Soln BOTH EYES PRN (22:00)
[2017-08-26] MEDS: Albuterol/Ipratropium 3ml neb HHN PRN (22:47)
[2017-08-26] MEDS: guaiFENesin 100mg/5ml Liq ud ORAL PRN (23:34)
[2017-08-27 00:28] LABS: INR 3.8 (0.9-1.1)
[2017-08-27 04:00] VITALS: BP 143/74
[2017-08-27] MEDS: Metoprolol Tartrate 50mg tab ORAL SCH ×3 (06:01→21:33)
[2017-08-27] MEDS: HydrALAZINE 25mg tab ORAL SCH ×3 (06:01→21:33)
[2017-08-27 08:00] VITALS: BP 133/74
[2017-08-27] MEDS: Albuterol/Ipratropium 3ml neb HHN PRN ×2 (08:13→15:29)
[2017-08-27 08:16] LABS: BASOPHILS % (AUTO) 0.7 % (0.0-2.0); EOSINOPHILS % (AUTO) 6.2 % (0.0-3.0); HEMATOCRIT 34.8 % (42.0-52.0); HEMOGLOBIN 11.5 G/DL (14.2-18.0); MEAN CORPUSCULAR VOLUME 89 FL (80-99); MONOCYTES % (AUTO) 17.4 % (1.0-10.0); NEUTROPHILS % (AUTO) 42.7 % (45.0-75.0); PLATELET COUNT 118 K/UL (150-450); RED BLOOD COUNT 3.92 M/UL (4.70-6.10); WHITE BLOOD COUNT 4.8 K/UL (4.8-10.8)
[2017-08-27 08:43] LABS: ALANINE AMINOTRANSFERASE 21 U/L (12-78); ALBUMIN 3.1 G/DL (3.4-5.0); ALBUMIN/GLOBULIN RATIO 0.6 (1.0-2.7); ALKALINE PHOSPHATASE 62 U/L (46-116); ANION GAP 9 mmol/L (5-15); ASPARTATE AMINO TRANSFERASE 20 U/L (15-37); BILIRUBIN,TOTAL 0.3 MG/DL (0.2-1.0); BLOOD UREA NITROGEN 45 mg/dL (7-18); CALCIUM 8.7 MG/DL (8.5-10.1); CARBON DIOXIDE 24 MMOL/L (21-32); CHLORIDE 108 MMOL/L (98-107); CREATININE 2.4 MG/DL (0.55-1.30); POTASSIUM 5.1 MMOL/L (3.5-5.1); SODIUM 141 MMOL/L (136-145)
[2017-08-27] MEDS ORDERED: Levofloxacin 500mg tab ORAL SCH (09:00)
[2017-08-27] MEDS: Depakote ER 250mg tab ORAL SCH ×2 (09:27→20:54)
[2017-08-27] MEDS: Digoxin 0.125mg tab ORAL SCH (09:27)
[2017-08-27] MEDS: dilTIAZem HCl CD 240mg cap ORAL SCH (09:28)
[2017-08-27] MEDS: guaiFENesin 100mg/5ml Liq ud ORAL PRN ×2 (09:41→18:04)
--- NOTE | 2017-08-27 10:16 | Consultation ---
History of Present Illness General Date patient seen: Aug 27, 2017 Chief Complaint: Upper Respiratory Illness Present Illness HPI 82-year-old male with hx of CVA, CHF, afib, COPD, senior living resident presented to ED for evaluation of cough and congestion for one day. No hx of fevers or chills. Denies chest pain. No other aggravating or relieving factors. Denies any other associated symptoms. Pt was found to have mild pulmonary edema. He had atrial flutter. Admitted to telemetry for further w/u. Allergies: Coded Allergies: MARYANA INHIBITORS (Unverified Allergy, Unknown, 01/31/14) ARB-ANGIOTENSIN RECEPTOR ANTAGONIST (Unverified Allergy, Unknown, 01/31/14) Medication History Scheduled Digoxin* (Digoxin*), 125 MCG ORAL DAILY, (Reported) Diltiazem Hcl (Diltiazem 24HR Cd), 240 MG PO DAILY, (Reported) Divalproex Sodium* (Depakote Er*), 250 MG ORAL EVERY 12 HOURS, (Reported) Hydralazine HCl (Hydralazine HCl), 25 MG PO Q8HR, (Reported) Isosorbide Dinitrate* (Isordil*), 10 MG ORAL EVERY 8 HOURS, (Reported) Levetiracetam* (Levetiracetam*), 1,500 MG ORAL Q12HR, (Reported) Levothyroxine Sodium* (Levothyroxine Sodium*), 75 MCG ORAL DAILY, (Reported) Loratadine (Loratadine), 10 MG PO DAILY, (Reported) Metoprolol Tartrate* (Metoprolol Tartrate*), 50 MG ORAL EVERY 8 HOURS, (Reported ) Tamsulosin Hcl (Tamsulosin Hcl*), 0.4 MG ORAL BEDTIME, (Reported) Scheduled PRN Acetaminophen (Acetaminophen), 325 MG ORAL Q4HR PRN for Mild Pain (Pain Scale 1- 3), (Reported) Albuterol Sulfate* (Albuterol Sulfate Hhn*), 3 ML INH Q4H PRN for Shortness of Breath, (Reported) Guaifenesin* (Guaifenesin), 10 ML ORAL Q6H PRN for For Cough, (Reported) Polyvinyl Alcohol (Polyvinyl Alcohol), 15 ML OP EVERY 6 HOURS PRN for BOTH EYES. FOR DRY EYE, (Reported) Discontinued Medications Tramadol Hcl (Ultram*), 25 MG ORAL Q8HR PRN for Moderate Pain (Pain Scale 4-6), (Reported) Discontinued Reason: Pt stopped taking med Warfarin Sod* (Warfarin Sod*), 5 MG ORAL DAILY, (Reported) Discontinued Reason: Pt stopped taking med Patient History Healthcare decision maker Resuscitation status Full Code Advanced Directive on File No Past Medical/Surgical History Past Medical/Surgical History: (1) Afib (2) Convulsive generalized seizure disorder (3) stroke L MCA, subacute, ischemic (4) partial complex sz , exacerbation (5) Vascular dementia with behavior disturbance (6) Anemia (7) Hemiplegia affecting right dominant side (8) Cardiomyopathy (9) Arrhythmia Review of Systems All Other Systems: negative except mentioned in HPI Physical Exam General Appearance: WD/WN Lines, tubes and drains: peripheral HEENT: normocephalic, atraumatic Neck: non-tender, normal alignment Respiratory/Chest: chest wall non-tender, lungs clear, rhonchi - left, rhonchi - right Breasts: no masses Cardiovascular/Chest: normal peripheral pulses, normal rate Abdomen: normal bowel sounds Genitourinary/Rectal: normal genital exam Extremities: normal range of motion Neurologic: machine welt butter II-XII 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 Last 24 Hour Vital Signs Date Time Temp Pulse Resp B/P (MAP) Pulse Ox O2 Delivery O2 Flow Rate FiO2 08/27/17 09:28 77 133/74 08/27/17 09:27 77 08/27/17 08:22 78 20 100 Nasal Cannula 2.0 08/27/17 08:17 77 20 97 Room Air 21 08/27/17 08:16 97 Room Air 08/27/17 08:16 Nasal Cannula 2.0 08/27/17 06:01 87 144/95 08/27/17 06:01 144/95 08/27/17 06:01 144/95 08/27/17 04:00 97.5 97 20 143/74 97 Nasal Cannula 2.0 97.5 08/27/17 04:00 71 08/27/17 00:00 75 08/26/17 22:50 97 Nasal Cannula 2.0 08/26/17 22:50 Nasal Cannula 2.0 08/26/17 22:48 72 20 100 Nasal Cannula 2.0 08/26/17 22:47 70 20 99 Nasal Cannula 2.0 28 08/26/17 20:20 97.0 66 14 132/70 97 Room Air 97.0 08/26/17 20:20 36.00062 66 14 132/70 97 Room Air 206.6 08/26/17 18:58 105 22 Room Air 08/26/17 18:58 97.9 105 20 136/70 99 Room Air 97.9 08/26/17 17:04 110 22 100 Room Air 08/26/17 16:57 109 26 100 Room Air 08/26/17 16:57 109 26 Room Air 08/26/17 16:24 97.9 95 20 134/68 95 Room Air 97.9 08/26/17 14:52 97.8 62 20 111/66 95 Room Air 97.9 Intake and Output 08/26/17 08/27/17 19:00 07:00 Output Total 900 ml Balance -900 ml Output Urine Total 900 ml # Voids 3 Laboratory Tests Test 08/26/17 15:50 08/26/17 19:05 08/26/17 23:35 08/27/17 06:00 White Blood Count 5.3 K/UL (4.8-10.8) 4.8 K/UL (4.8-10.8) Red Blood Count 4.36 M/UL (4.70-6.10) L 3.92 M/UL (4.70-6.10) L Hemoglobin 12.7 G/DL (14.2-18.0) L 11.5 G/DL (14.2-18.0) L Hematocrit 38.3 % (42.0-52.0) L 34.8 % (42.0-52.0) L Mean Corpuscular Volume 88 FL (80-99) 89 FL (80-99) Mean Corpuscular Hemoglobin 29.2 PG (27.0-31.0) 29.4 PG (27.0-31.0) Mean Corpuscular Hemoglobin Concent 33.3 G/DL (32.0-36.0) 33.2 G/DL (32.0-36.0) Red Cell Distribution Width 13.9 % (11.6-14.8) 14.0 % (11.6-14.8) Platelet Count 125 K/UL (150-450) L 118 K/UL (150-450) L Mean Platelet Volume 6.9 FL (6.5-10.1) 7.6 FL (6.5-10.1) Neutrophils (%) (Auto) 43.8 % (45.0-75.0) L 42.7 % (45.0-75.0) L Lymphocytes (%) (Auto) 29.5 % (20.0-45.0) 33.0 % (20.0-45.0) Monocytes (%) (Auto) 18.7 % (1.0-10.0) H 17.4 % (1.0-10.0) H Eosinophils (%) (Auto) 7.0 % (0.0-3.0) H 6.2 % (0.0-3.0) H Basophils (%) (Auto) 1.1 % (0.0-2.0) 0.7 % (0.0-2.0) Sodium Level 140 MMOL/L (136-145) 141 MMOL/L (136-145) Potassium Level 5.1 MMOL/L (3.5-5.1) 5.1 MMOL/L (3.5-5.1) Chloride Level 105 MMOL/L (98-107) 108 MMOL/L (98-107) H Carbon Dioxide Level 24 MMOL/L (21-32) 24 MMOL/L (21-32) Anion Gap 11 mmol/L (5-15) 9 mmol/L (5-15) Blood Urea Nitrogen 44 mg/dL (7-18) H 45 mg/dL (7-18) H Creatinine 2.5 MG/DL (0.55-1.30) H 2.4 MG/DL (0.55-1.30) H Estimat Glomerular Filtration Rate mL/min (>60) mL/min (>60) Glucose Level 109 MG/DL (74-106) H 81 MG/DL (74-106) Lactic Acid Level 1.40 mmol/L (0.4-2.0) Calcium Level 8.9 MG/DL (8.5-10.1) 8.7 MG/DL (8.5-10.1) Total Bilirubin 0.4 MG/DL (0.2-1.0) 0.3 MG/DL (0.2-1.0) Aspartate Amino Transf (AST/SGOT) 24 U/L (15-37) 20 U/L (15-37) Alanine Aminotransferase (ALT/SGPT) 23 U/L (12-78) 21 U/L (12-78) Alkaline Phosphatase 76 U/L (46-116) 62 U/L (46-116) Pro-B-Type Natriuretic Peptide 2804 pg/mL (0-125) H Total Protein 9.4 G/DL (6.4-8.2) H 8.3 G/DL (6.4-8.2) H Albumin 3.6 G/DL (3.4-5.0) 3.1 G/DL (3.4-5.0) L Globulin 5.8 g/dL 5.2 g/dL Albumin/Globulin Ratio 0.6 (1.0-2.7) L 0.6 (1.0-2.7) L Urine Color Pale yellow Urine Appearance Clear Urine pH 5 (4.5-8.0) Urine Specific Mary D 1.015 (1.005-1.035) Urine Protein Negative (NEGATIVE) Urine Glucose (UA) Negative (NEGATIVE) Urine Ketones Negative (NEGATIVE) Urine Occult Blood Negative (NEGATIVE) Urine Nitrite Negative (NEGATIVE) Urine Bilirubin Negative (NEGATIVE) Urine Urobilinogen Normal MG/DL (0.0-1.0) Urine Leukocyte Esterase Negative (NEGATIVE) Prothrombin Time 40.4 SEC (9.30-11.50) H Prothromb Time International Ratio 3.8 (0.9-1.1) H Magnesium Level 2.1 MG/DL (1.8-2.4) Height (Feet): 6 Height (Inches): 1.00 Weight (Pounds): 205 Medications Current Medications Medications (Trade) Dose Ordered Sig/Con Route PRN Reason Start Time Stop Time Status Last Admin Dose Admin Acetaminophen (Tylenol) 325 mg Q4H PRN ORAL Mild Pain (Pain Scale 1-3) 08/26/17 22:15 09/25/17 22:14 Albuterol/ Ipratropium (Albuterol/ Ipratropium) 3 ml Q4HRT PRN HHN Shortness of Breath 08/26/17 21:45 08/31/17 21:44 08/27/17 08:13 Artificial Tears (Akwa-Tears) 1 drop Q6HR PRN BOTH EYES dry eyes 08/26/17 22:00 09/25/17 21:59 Digoxin (Lanoxin) 0.125 mg DAILY ORAL 08/27/17 09:00 09/26/17 08:59 08/27/17 09:27 Diltiazem HCl (Cardizem CD) 240 mg DAILY ORAL 08/27/17 09:00 09/26/17 08:59 08/27/17 09:28 Divalproex Sodium (Depakote ER) 250 mg EVERY 12 HOURS ORAL 08/27/17 09:00 09/26/17 08:59 08/27/17 09:27 Fexofenadine HCl (Yessy) 60 mg TWICE A DAY ORAL 08/27/17 09:00 09/26/17 08:59 08/27/17 09:28 Furosemide (Lasix) 40 mg DAILY IV 08/27/17 09:00 09/26/17 08:59 08/27/17 09:27 Guaifenesin (Robitussin) 200 mg Q6HR PRN ORAL For Cough 08/26/17 22:15 09/25/17 22:14 08/27/17 09:41 Hydralazine HCl (Apresoline) 25 mg Q8HR ORAL 08/27/17 06:00 09/26/17 05:59 08/27/17 06:01 Isosorbide Dinitrate (Isordil) 10 mg Q8HR ORAL 08/27/17 06:00 09/26/17 05:59 08/27/17 06:01 Levetiracetam (Keppra) 1,500 mg Q12HR ORAL 08/27/17 09:00 09/26/17 08:59 08/27/17 09:29 Levofloxacin (Levaquin) 500 mg DAILY ORAL 08/27/17 09:00 09/03/17 08:59 08/27/17 09:28 Levothyroxine Sodium (Synthroid) 75 mcg DAILY@0630 ORAL 08/27/17 06:30 09/26/17 06:29 08/27/17 06:01 Metoprolol Tartrate (Lopressor) 50 mg Q8HR ORAL 08/27/17 06:00 09/26/17 05:59 08/27/17 06:01 Tamsulosin HCl (Flomax) 0.4 mg BEDTIME ORAL 08/27/17 21:00 09/26/17 20:59 Warfarin Sodium (Coumadin per pharmacy) 1 ea DAILY PRN MISC Per rx protocol 08/26/17 22:45 09/25/17 22:44 Assessment/Plan Problem List: (1) CHF exacerbation ICD Codes: I50.9 - Heart failure, unspecified SNOMED: 44384740 Qualifiers: Qualified Codes: I50.9 - Heart failure, unspecified (2) Acute on chronic renal insufficiency ICD Codes: N28.9 - Disorder of kidney and ureter, unspecified; N18.9 - Chronic kidney disease, unspecified SNOMED: 754601028, 161305286 (3) Vascular dementia with behavior disturbance ICD Codes: F01.51 - Vascular dementia with behavior disturbance SNOMED: 898208990 (4) Hemiplegia affecting right dominant side ICD Codes: G81.91 - Hemiplegia, unspecified affecting right dominant side SNOMED: 79591229 (5) Afib ICD Codes: I48.91 - Afib SNOMED: 02687764 (6) Cardiomyopathy ICD Codes: I42.9 - Cardiomyopathy SNOMED: 53793848 Assessment/Plan respiratory treatment swallow study titrate fi2 to sat of 92% telemetry monitoring modify cardiac meds as needed dvt prophylaxis Warner Trujillo MD Aug 27, 2017 10:16
--- NOTE | 2017-08-27 11:36 | History & Physical ---
History and Physical History & Physicial SOURCE OF INFORMATION: The patient and EMR. HISTORY OF PRESENT ILLNESS: The patient is a pleasant 82-year-old male with a history of the right-sided hemiplegia. The patient had been admitted in the hospital recently with new diagnosis of progressive productive cough . per Facility report, there is no episode of Sz, or fever, chills. No dizziness, no chest pain ROS: all 12 elements of ROS revewied , pertinent negative and positive as above PAST MEDICAL HISTORY: Chronic kidney disease stage 3-4, CVA with right hemiplegia, cardiomyopathy with preserved ejection fraction ( than the previous encounters), atrial fibrillation, neuropathic pain, dementia, seizure disorder (new diagnosis since prior to admission). PAST SURGICAL HISTORY: Denies. ALLERGIES: Wale Inhibitor. SOCIAL HISTORY: The patient is currently living in the [facility] facility. The patient denies any history of illicit drug abuse, smoking or alcohol abuse. The patient's is actively involved in the patient's care, who is the main point of contact for the last since last year. FAMILY HISTORY: Reviewed, noncontributory. PHYSICAL EXAMINATION: VITAL SIGNS: Blood pressure 140/80, temperature 98.2 degrees, pulse rate 80, pulse oximetry 98% on two liters of oxygen and respiratory rate 18-20. HEAD AND NECK: Atraumatic and normocephalic. CHEST: Bronchial BS, diffuse wheezing HEART: S1 and S2. IRegular rate and rhythm. ABDOMEN: Soft. No organomegaly. MUSCULOSKELETAL: Positive for right hemiplegia at baseline. NEUROLOGY: The patient is awake. right side weakness, alert and oriented x2 at baseline. LABORATORY AND DIAGNOSTIC DATA: dated , reviewed and reconciled in the chart ASSESSMENT AND PLAN: 1. Acute Asthma/copd exacerbation vs CHF exacerbation 2. Breakthrough seizures/status epilepticus, 2. Dementia. 3. Cerebrovascular accident with right hemiplegia. 4. Atrial fibrillation with controlled rate. 5. Congestive heart failure - diastolic with the preserved ejection fraction. 6. Hypothyroidism. 7. Hypertension. 8. Acute on chronic renal failure, 9. Benign prostatic hypertrophy. 10. Gastrointestinal and deep vein thrombosis prophylaxes. PLAN OF CARE: Uptitrated lasix. Empirical abx for bronchitis. Resume with the current medications including valproic acid and Keppra. Ondina Geiger MD Aug 27, 2017 11:36
--- NOTE | 2017-08-27 11:38 | General Progress Note ---
Assessment/Plan Assessment/Plan S: I am ok O: appears in mild sob. mild wheezing, no chest pain ' PHYSICAL EXAMINATION: HEAD AND NECK: Atraumatic and normocephalic. CHEST: Bronchial BS, diffuse wheezing HEART: S1 and S2. IRegular rate and rhythm. ABDOMEN: Soft. No organomegaly. MUSCULOSKELETAL: Positive for right hemiplegia at baseline. NEUROLOGY: The patient is awake. right side weakness, alert and oriented x2 at baseline. Meds: reviewed and reconciled in the chart, including Levaquin 500 mg daily ASSESSMENT AND PLAN: 1. Acute Asthma/copd exacerbation vs CHF exacerbation 2. seizures- h/o of . stable 2. Dementia. 3. Cerebrovascular accident with right hemiplegia. 4. Atrial fibrillation with controlled rate. 5. Congestive heart failure - diastolic with the preserved ejection fraction. 6. Hypothyroidism. 7. Hypertension. 8. Acute on chronic renal failure, 9. Benign prostatic hypertrophy. 10. Gastrointestinal and deep vein thrombosis prophylaxes. PLAN OF CARE: Uptitrated lasix. Empirical abx for bronchitis. Resume with the current medications including valproic acid and Keppra. Subjective Allergies: Coded Allergies: MARYANA INHIBITORS (Unverified Allergy, Unknown, 01/31/14) ARB-ANGIOTENSIN RECEPTOR ANTAGONIST (Unverified Allergy, Unknown, 01/31/14) Objective Last 24 Hour Vital Signs Date Time Temp Pulse Resp B/P (MAP) Pulse Ox O2 Delivery O2 Flow Rate FiO2 08/27/17 09:28 77 133/74 08/27/17 09:27 77 08/27/17 08:22 78 20 100 Nasal Cannula 2.0 28 08/27/17 08:17 77 20 97 Room Air 21 08/27/17 08:16 97 Room Air 21 08/27/17 08:16 Nasal Cannula 2.0 28 08/27/17 06:01 87 144/95 08/27/17 06:01 144/95 08/27/17 06:01 144/95 08/27/17 04:00 97.5 97 20 143/74 97 Nasal Cannula 2.0 97.5 08/27/17 04:00 71 08/27/17 00:00 75 08/26/17 22:50 97 Nasal Cannula 2.0 28 08/26/17 22:50 Nasal Cannula 2.0 28 08/26/17 22:48 72 20 100 Nasal Cannula 2.0 28 08/26/17 22:47 70 20 99 Nasal Cannula 2.0 28 08/26/17 20:20 97.0 66 14 132/70 97 Room Air 97.0 08/26/17 20:20 36.88103 66 14 132/70 97 Room Air 206.6 08/26/17 18:58 105 22 Room Air 08/26/17 18:58 97.9 105 20 136/70 99 Room Air 97.9 08/26/17 17:04 110 22 100 Room Air 08/26/17 16:57 109 26 100 Room Air 08/26/17 16:57 109 26 Room Air 08/26/17 16:24 97.9 95 20 134/68 95 Room Air 97.9 08/26/17 14:52 97.8 62 20 111/66 95 Room Air 97.9 Intake and Output 08/26/17 08/27/17 19:00 07:00 Output Total 900 ml Balance -900 ml Output Urine Total 900 ml # Voids 3 Laboratory Tests 08/26/17 15:50: White Blood Count 5.3, Red Blood Count 4.36L, Hemoglobin 12.7L, Hematocrit 38.3L , Mean Corpuscular Volume 88, Mean Corpuscular Hemoglobin 29.2, Mean Corpuscular Hemoglobin Concent 33.3, Red Cell Distribution Width 13.9, Platelet Count 125L, Mean Platelet Volume 6.9, Neutrophils (%) (Auto) 43.8L, Lymphocytes (%) (Auto) 29.5, Monocytes (%) (Auto) 18.7H, Eosinophils (%) (Auto) 7.0H, Basophils (%) (Auto) 1.1, Sodium Level 140, Potassium Level 5.1, Chloride Level 105, Carbon Dioxide Level 24, Anion Gap 11, Blood Urea Nitrogen 44H, Creatinine 2.5H, Estimat Glomerular Filtration Rate , Glucose Level 109H, Lactic Acid Level 1.40, Calcium Level 8.9, Total Bilirubin 0.4, Aspartate Amino Transf (AST/ SGOT) 24, Alanine Aminotransferase (ALT/SGPT) 23, Alkaline Phosphatase 76, Pro-B -Type Natriuretic Peptide 2804H, Total Protein 9.4H, Albumin 3.6, Globulin 5.8, Albumin/Globulin Ratio 0.6L 08/26/17 19:05: Urine Color Pale yellow, Urine Appearance Clear, Urine pH 5, Urine Specific Willard 1.015, Urine Protein Negative, Urine Glucose (UA) Negative, Urine Ketones Negative, Urine Occult Blood Negative, Urine Nitrite Negative, Urine Bilirubin Negative, Urine Urobilinogen Normal, Urine Leukocyte Esterase Negative 08/26/17 23:35: Prothrombin Time 40.4H, Prothromb Time International Ratio 3.8H 08/27/17 06:00: White Blood Count 4.8, Red Blood Count 3.92L, Hemoglobin 11.5L, Hematocrit 34.8L , Mean Corpuscular Volume 89, Mean Corpuscular Hemoglobin 29.4, Mean Corpuscular Hemoglobin Concent 33.2, Red Cell Distribution Width 14.0, Platelet Count 118L, Mean Platelet Volume 7.6, Neutrophils (%) (Auto) 42.7L, Lymphocytes (%) (Auto) 33.0, Monocytes (%) (Auto) 17.4H, Eosinophils (%) (Auto) 6.2H, Basophils (%) (Auto) 0.7, Sodium Level 141, Potassium Level 5.1, Chloride Level 108H, Carbon Dioxide Level 24, Anion Gap 9, Blood Urea Nitrogen 45H, Creatinine 2.4H, Estimat Glomerular Filtration Rate , Glucose Level 81, Calcium Level 8.7, Total Bilirubin 0.3, Aspartate Amino Transf (AST/SGOT) 20, Alanine Aminotransferase (ALT/SGPT) 21, Alkaline Phosphatase 62, Total Protein 8.3H, Albumin 3.1L, Globulin 5.2, Albumin/Globulin Ratio 0.6L, Magnesium Level 2.1, Digoxin Level 1.4 08/27/17 11:04: Prothrombin Time [Pending], Prothromb Time International Ratio [Pending] Height (Feet): 6 Height (Inches): 1.00 Weight (Pounds): 205 Ondina Geiger MD Aug 27, 2017 11:38
[2017-08-27 11:55] LABS: INR 3.6 (0.9-1.1)
[2017-08-27 12:00] VITALS: BP 146/83
--- NOTE | 2017-08-27 12:36 | Consultation ---
Consult Note Consult Note asked to eval for renal failure 82-year-old male presents ED for evaluation of cough and congestion times one day. [facility] History of CHF. Denies fevers or chills. Denies chest pain. No other aggravating or relieving factors. Denies any other associated symptoms Allergies: MARYANA INHIBITORS (Unverified Allergy, Unknown, 01/31/14) ARB-ANGIOTENSIN RECEPTOR ANTAGONIST (Unverified Allergy, Unknown, 01/31/14) Past Medical History: HTN, COPD, CVA/TIA, dementia, seizures, other - encephalopathy Hx Cardiac Problems: Yes Hx Hypertension: Yes Hx COPD: Yes hypothyroidism CKD Hx Neurological Problems: Yes - Encephalapathy,Neuralgia Hx Cerebrovascular Accident: Yes Hx Dementia: Yes Hx Seizures: Yes Hx Weakness: Yes examined- present data reviewed Assessment/Plan Renal failure due to pre renal azotemia due to underlying CHF- Cr 2.4 ? underlying CKD others: Acute Asthma/copd exacerbation vs CHF exacerbation Breakthrough seizures/status epilepticus, Cerebrovascular accident with right hemiplegia. Congestive heart failure - diastolic with the preserved ejection fraction. Benign prostatic hypertrophy. h/o Pneumonia- SVT , At fib- on anti coag h/o DVT- h/o HypoThyroidism h/o Gout Dementia HTN Plan: Optimize cardiac and pulmonary status monitor renal parameters- avoid nephrotoxics- flomax adjust bp MARIA M Dillon Aug 27, 2017 12:36
[2017-08-27] MEDS: Tamsulosin 0.4mg cap ORAL SCH ×2 (14:44→20:54)
[2017-08-27 16:00] VITALS: BP 127/77
[2017-08-27 20:00] VITALS: BP 135/70
[2017-08-27] MEDS ORDERED: Tamsulosin 0.4mg cap ORAL SCH (21:00)
--- NOTE | 2017-08-27 23:14 | Consultation ---
History of Present Illness General Date patient seen: Aug 27, 2017 Chief Complaint: Upper Respiratory Illness Present Illness HPI 82-year-old male with a history of schizoaffective d/o and right-sided hemiplegia came in for shortness of breath the pt was agitated and irritable. the pt is well know to this md from previous admissions. the pt has memory impairment. his psychotic symptoms arr stable he is not delusional. Allergies: Coded Allergies: MARYANA INHIBITORS (Unverified Allergy, Unknown, 01/31/14) ARB-ANGIOTENSIN RECEPTOR ANTAGONIST (Unverified Allergy, Unknown, 01/31/14) Medication History Scheduled Digoxin* (Digoxin*), 125 MCG ORAL DAILY, (Reported) Diltiazem Hcl (Diltiazem 24HR Cd), 240 MG PO DAILY, (Reported) Divalproex Sodium* (Depakote Er*), 250 MG ORAL EVERY 12 HOURS, (Reported) Hydralazine HCl (Hydralazine HCl), 25 MG PO Q8HR, (Reported) Isosorbide Dinitrate* (Isordil*), 10 MG ORAL EVERY 8 HOURS, (Reported) Levetiracetam* (Levetiracetam*), 1,500 MG ORAL Q12HR, (Reported) Levothyroxine Sodium* (Levothyroxine Sodium*), 75 MCG ORAL DAILY, (Reported) Loratadine (Loratadine), 10 MG PO DAILY, (Reported) Metoprolol Tartrate* (Metoprolol Tartrate*), 50 MG ORAL EVERY 8 HOURS, (Reported ) Tamsulosin Hcl (Tamsulosin Hcl*), 0.4 MG ORAL BEDTIME, (Reported) Scheduled PRN Acetaminophen (Acetaminophen), 325 MG ORAL Q4HR PRN for Mild Pain (Pain Scale 1- 3), (Reported) Albuterol Sulfate* (Albuterol Sulfate Hhn*), 3 ML INH Q4H PRN for Shortness of Breath, (Reported) Guaifenesin* (Guaifenesin), 10 ML ORAL Q6H PRN for For Cough, (Reported) Polyvinyl Alcohol (Polyvinyl Alcohol), 15 ML OP EVERY 6 HOURS PRN for BOTH EYES. FOR DRY EYE, (Reported) Discontinued Medications Tramadol Hcl (Ultram*), 25 MG ORAL Q8HR PRN for Moderate Pain (Pain Scale 4-6), (Reported) Discontinued Reason: Pt stopped taking med Warfarin Sod* (Warfarin Sod*), 5 MG ORAL DAILY, (Reported) Discontinued Reason: Pt stopped taking med Patient History Limited by: medical condition History Provided By: Patient, Medical Record, PMD Healthcare decision maker Resuscitation status Full Code Advanced Directive on File No Past Medical/Surgical History Past Medical/Surgical History: (1) Abnormal laboratory test result (2) Abnormal laboratory test result (3) Alteration consciousness (4) Alteration consciousness (5) Arthralgia (6) Encephalopathy acute (7) UTI (urinary tract infection) (8) Encephalopathy acute (9) Altered level of consciousness (10) Sepsis (11) Dementia, vascular (12) Epileptic seizure, generalized (13) Arterial ischemic stroke, MCA (middle cerebral artery), left, chronic (14) Atrial fibrillation with RVR (15) refusing food/po meds (16) Cardiomyopathy (17) Pneumonia (18) CKD (chronic kidney disease) (19) L MCA subacute stroke (20) Hyperkalemia (21) Status epilepticus, generalized convulsive (22) ARF (acute renal failure) (23) Anemia (24) Arrhythmia (25) Cardiomyopathy (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 (27) Afib (28) Hemiplegia affecting right dominant side (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 (30) partial complex sz , exacerbation (31) stroke L MCA, subacute, ischemic (32) Acute on chronic renal insufficiency (33) CHF exacerbation (34) At high risk for aspiration (35) Acute renal failure (36) Seizure disorder (37) CVA (cerebral infarction) Review of Systems Psychiatric: Reports: prior hx, anxiety, depressed feelings, emotional problems Physical Exam General Appearance: no apparent distress Neurologic: oriented x 3, responsive, depressed affect Last 24 Hour Vital Signs Date Time Temp Pulse Resp B/P (MAP) Pulse Ox O2 Delivery O2 Flow Rate FiO2 08/27/17 21:33 63 135/70 08/27/17 21:33 135/70 08/27/17 21:33 135/70 08/27/17 20:00 98.7 99 22 135/70 100 Room Air 98.7 08/27/17 20:00 63 08/27/17 19:30 96 Room Air 21 08/27/17 19:30 Room Air 21 08/27/17 16:00 74 08/27/17 16:00 98.1 69 20 127/77 98 Room Air 98.1 08/27/17 15:41 69 20 100 Room Air 08/27/17 15:30 69 20 98 Room Air 08/27/17 15:29 97 Room Air 21 08/27/17 14:44 67 146/83 08/27/17 14:44 146/83 08/27/17 14:44 146/83 08/27/17 12:00 97.7 67 20 146/83 98 Room Air 97.7 08/27/17 12:00 84 08/27/17 09:28 77 133/74 08/27/17 09:27 77 08/27/17 08:22 78 20 100 Nasal Cannula 2.0 28 08/27/17 08:17 77 20 97 Room Air 08/27/17 08:16 97 Room Air 08/27/17 08:16 Nasal Cannula 2.0 28 08/27/17 08:00 98.7 77 20 133/74 99 Room Air 98.7 08/27/17 08:00 71 08/27/17 06:01 87 144/95 08/27/17 06:01 144/95 08/27/17 06:01 144/95 08/27/17 04:00 97.5 97 20 143/74 97 Nasal Cannula 2.0 97.5 08/27/17 04:00 71 08/27/17 00:00 75 Intake and Output 08/26/17 08/27/17 19:00 07:00 Output Total 900 ml Balance -900 ml Output Urine Total 900 ml # Voids 3 Laboratory Tests Test 08/26/17 23:35 08/27/17 06:00 08/27/17 11:04 Prothrombin Time 40.4 SEC (9.30-11.50) H 37.9 SEC (9.30-11.50) H Prothromb Time International Ratio 3.8 (0.9-1.1) H 3.6 (0.9-1.1) H White Blood Count 4.8 K/UL (4.8-10.8) Red Blood Count 3.92 M/UL (4.70-6.10) L Hemoglobin 11.5 G/DL (14.2-18.0) L Hematocrit 34.8 % (42.0-52.0) L Mean Corpuscular Volume 89 FL (80-99) Mean Corpuscular Hemoglobin 29.4 PG (27.0-31.0) Mean Corpuscular Hemoglobin Concent 33.2 G/DL (32.0-36.0) Red Cell Distribution Width 14.0 % (11.6-14.8) Platelet Count 118 K/UL (150-450) L Mean Platelet Volume 7.6 FL (6.5-10.1) Neutrophils (%) (Auto) 42.7 % (45.0-75.0) L Lymphocytes (%) (Auto) 33.0 % (20.0-45.0) Monocytes (%) (Auto) 17.4 % (1.0-10.0) H Eosinophils (%) (Auto) 6.2 % (0.0-3.0) H Basophils (%) (Auto) 0.7 % (0.0-2.0) Sodium Level 141 MMOL/L (136-145) Potassium Level 5.1 MMOL/L (3.5-5.1) Chloride Level 108 MMOL/L (98-107) H Carbon Dioxide Level 24 MMOL/L (21-32) Anion Gap 9 mmol/L (5-15) Blood Urea Nitrogen 45 mg/dL (7-18) H Creatinine 2.4 MG/DL (0.55-1.30) H Estimat Glomerular Filtration Rate mL/min (>60) Glucose Level 81 MG/DL (74-106) Calcium Level 8.7 MG/DL (8.5-10.1) Magnesium Level 2.1 MG/DL (1.8-2.4) Total Bilirubin 0.3 MG/DL (0.2-1.0) Aspartate Amino Transf (AST/SGOT) 20 U/L (15-37) Alanine Aminotransferase (ALT/SGPT) 21 U/L (12-78) Alkaline Phosphatase 62 U/L (46-116) C-Reactive Protein, Quantitative 5.6 mg/dL (0.00-0.90) H Total Protein 8.3 G/DL (6.4-8.2) H Albumin 3.1 G/DL (3.4-5.0) L Globulin 5.2 g/dL Albumin/Globulin Ratio 0.6 (1.0-2.7) L Digoxin Level 1.4 NG/ML (0.5-2.0) Height (Feet): 6 Height (Inches): 1.00 Weight (Pounds): 205 Medications Current Medications Medications (Trade) Dose Ordered Sig/Con Route PRN Reason Start Time Stop Time Status Last Admin Dose Admin Acetaminophen (Tylenol) 325 mg Q4H PRN ORAL Mild Pain (Pain Scale 1-3) 08/26/17 22:15 09/25/17 22:14 Albuterol/ Ipratropium (Albuterol/ Ipratropium) 3 ml Q4HRT PRN HHN Shortness of Breath 08/26/17 21:45 08/31/17 21:44 08/27/17 15:29 Artificial Tears (Akwa-Tears) 1 drop Q6HR PRN BOTH EYES dry eyes 08/26/17 22:00 09/25/17 21:59 Digoxin (Lanoxin) 0.125 mg DAILY ORAL 08/27/17 09:00 09/26/17 08:59 08/27/17 09:27 Diltiazem HCl (Cardizem CD) 240 mg DAILY ORAL 08/27/17 09:00 09/26/17 08:59 08/27/17 09:28 Divalproex Sodium (Depakote ER) 250 mg EVERY 12 HOURS ORAL 08/27/17 09:00 09/26/17 08:59 08/27/17 20:54 Furosemide (Lasix) 40 mg DAILY IV 08/27/17 09:00 09/26/17 08:59 08/27/17 09:27 Guaifenesin (Robitussin) 200 mg Q6HR PRN ORAL For Cough 08/26/17 22:15 09/25/17 22:14 08/27/17 18:04 Hydralazine HCl (Apresoline) 25 mg Q8HR ORAL 08/27/17 06:00 09/26/17 05:59 08/27/17 21:33 Isosorbide Dinitrate (Isordil) 10 mg Q8HR ORAL 08/27/17 06:00 09/26/17 05:59 08/27/17 21:33 Levetiracetam (Keppra) 1,500 mg Q12HR ORAL 08/27/17 09:00 7/2/18 08:59 08/27/17 20:55 Levofloxacin (Levaquin) 250 mg DAILY ORAL 08/28/17 09:00 09/04/17 08:59 Levothyroxine Sodium (Synthroid) 75 mcg DAILY@0630 ORAL 08/27/17 06:30 09/26/17 06:29 08/27/17 06:01 Metoprolol Tartrate (Lopressor) 50 mg Q8HR ORAL 08/27/17 06:00 09/26/17 05:59 08/27/17 21:33 Tamsulosin HCl (Flomax) 0.4 mg Q12HR ORAL 08/27/17 13:30 09/26/17 13:29 08/27/17 20:54 Warfarin Sodium (Coumadin per pharmacy) 1 ea DAILY PRN MISC Per rx protocol 08/26/17 22:45 09/25/17 22:44 Assessment/Plan Status: stable Assessment/Plan schizoaffective d/o cognitive impairment -depakote er 250mg bid -provided kit/Rufus Flores M.D. Aug 27, 2017 23:14
[2017-08-28] VITALS: BP 130/71
[2017-08-28] MEDS: guaiFENesin 100mg/5ml Liq ud ORAL PRN ×3 (01:01→13:29)
[2017-08-28] MEDS: Albuterol/Ipratropium 3ml neb HHN PRN ×2 (01:59→12:32)
[2017-08-28 04:00] VITALS: BP 124/72
[2017-08-28] MEDS: HydrALAZINE 25mg tab ORAL SCH ×3 (05:33→21:26)
[2017-08-28] MEDS: Metoprolol Tartrate 50mg tab ORAL SCH ×3 (05:34→21:25)
[2017-08-28 08:00] VITALS: BP 114/70
[2017-08-28 08:44] LABS: INR 2.7 (0.9-1.1)
[2017-08-28 08:47] LABS: BASOPHILS % (AUTO) 0.4 % (0.0-2.0); EOSINOPHILS % (AUTO) 4.1 % (0.0-3.0); HEMATOCRIT 34.7 % (42.0-52.0); HEMOGLOBIN 11.9 G/DL (14.2-18.0); LYMPHOCYTES % (AUTO) 39.5 % (20.0-45.0); MEAN CORPUSCULAR VOLUME 89 FL (80-99); MONOCYTES % (AUTO) 13.2 % (1.0-10.0); NEUTROPHILS % (AUTO) 42.8 % (45.0-75.0); PLATELET COUNT 122 K/UL (150-450); WHITE BLOOD COUNT 5.3 K/UL (4.8-10.8)
--- NOTE | 2017-08-28 09:16 | General Progress Note ---
Assessment/Plan Status: stable Assessment/Plan S: I am ok O: appears in mild sob. mild wheezing, no chest pain, at the bed side PHYSICAL EXAMINATION: HEAD AND NECK: Atraumatic and normocephalic. CHEST: Bronchial BS, diffuse wheezing HEART: S1 and S2. IRegular rate and rhythm. ABDOMEN: Soft. No organomegaly. MUSCULOSKELETAL: Positive for right hemiplegia at baseline. NEUROLOGY: The patient is awake. right side weakness, alert and oriented x2 at baseline. Meds: reviewed and reconciled in the chart, including Levaquin 500 mg daily ASSESSMENT AND PLAN: 1. Acute Asthma/copd exacerbation vs CHF exacerbation 2. seizures- h/o of . stable 2. Dementia. 3. Cerebrovascular accident with right hemiplegia. 4. Atrial fibrillation with controlled rate. 5. Congestive heart failure - diastolic with the preserved ejection fraction. 6. Hypothyroidism. 7. Hypertension. 8. Acute on chronic renal failure, 9. Benign prostatic hypertrophy. 10. Gastrointestinal and deep vein thrombosis prophylaxes. PLAN OF CARE: pending labs will check INR anticipating DC tomorrow Subjective Allergies: Coded Allergies: MARYANA INHIBITORS (Unverified Allergy, Unknown, 01/31/14) ARB-ANGIOTENSIN RECEPTOR ANTAGONIST (Unverified Allergy, Unknown, 01/31/14) Objective Last 24 Hour Vital Signs Date Time Temp Pulse Resp B/P (MAP) Pulse Ox O2 Delivery O2 Flow Rate FiO2 08/28/17 08:54 98 Room Air 21 08/28/17 08:54 Room Air 21 08/28/17 05:34 67 124/72 08/28/17 05:34 124/72 08/28/17 05:33 124/72 08/28/17 04:00 97.9 67 20 124/72 96 Room Air 97.9 08/28/17 04:00 72 08/28/17 02:01 79 20 100 Room Air 21 08/28/17 01:59 68 20 98 Room Air 21 08/28/17 00:00 97.8 73 20 130/71 99 Room Air 97.8 08/28/17 00:00 78 08/27/17 21:33 63 135/70 08/27/17 21:33 135/70 08/27/17 21:33 135/70 08/27/17 20:00 98.7 99 22 135/70 100 Room Air 98.7 08/27/17 20:00 63 08/27/17 19:30 96 Room Air 21 08/27/17 19:30 Room Air 21 08/27/17 16:00 74 08/27/17 16:00 98.1 69 20 127/77 98 Room Air 98.1 08/27/17 15:41 69 20 100 Room Air 21 08/27/17 15:30 69 20 98 Room Air 21 08/27/17 15:29 97 Room Air 21 08/27/17 14:44 67 146/83 08/27/17 14:44 146/83 08/27/17 14:44 146/83 08/27/17 12:00 97.7 67 20 146/83 98 Room Air 97.7 08/27/17 12:00 84 08/27/17 09:28 77 133/74 08/27/17 09:27 77 Intake and Output 08/27/17 08/28/17 19:00 07:00 Intake Total 120 ml 100 ml Output Total 167 ml Balance -47 ml 100 ml Intake Oral 120 ml 100 ml Post Void Residual 167 ml Bladder Scan Volume Amount 151-200 ml # Voids 1 Laboratory Tests 08/27/17 11:04: Prothrombin Time 37.9H, Prothromb Time International Ratio 3.6H 08/28/17 07:30: Prothrombin Time 28.2H, Prothromb Time International Ratio 2.7H, White Blood Count 5.3, Red Blood Count 3.90L, Hemoglobin 11.9L, Hematocrit 34.7L, Mean Corpuscular Volume 89, Mean Corpuscular Hemoglobin 30.4, Mean Corpuscular Hemoglobin Concent 34.2, Red Cell Distribution Width 14.0, Platelet Count 122L, Mean Platelet Volume 8.2, Neutrophils (%) (Auto) 42.8L, Lymphocytes (%) (Auto) 39.5, Monocytes (%) (Auto) 13.2H, Eosinophils (%) (Auto) 4.1H, Basophils (%) ( Auto) 0.4, Sodium Level [Pending], Potassium Level [Pending], Chloride Level [ Pending], Carbon Dioxide Level [Pending], Blood Urea Nitrogen [Pending], Creatinine [Pending], Estimat Glomerular Filtration Rate [Pending], Glucose Level [Pending], Hemoglobin A1c 6.5H, Uric Acid [Pending], Calcium Level [ Pending], Phosphorus Level [Pending], Magnesium Level [Pending], Total Bilirubin [Pending], Gamma Glutamyl Transpeptidase [Pending], Aspartate Amino Transf (AST/SGOT) [Pending], Alanine Aminotransferase (ALT/SGPT) [Pending], Alkaline Phosphatase [Pending], Troponin I [Pending], Pro-B-Type Natriuretic Peptide [Pending], Total Protein [Pending], Albumin [Pending], Globulin [Pending ], Triglycerides Level [Pending], Cholesterol Level [Pending], LDL Cholesterol [ Pending], HDL Cholesterol [Pending], Cholesterol/HDL Ratio [Pending], Vitamin B12 Level [Pending], Folate [Pending], Thyroid Stimulating Hormone (TSH) [ Pending] Height (Feet): 6 Height (Inches): 1.00 Weight (Pounds): 199 Ondina Geiger MD Aug 28, 2017 09:16
[2017-08-28 09:21] LABS: ALANINE AMINOTRANSFERASE 19 U/L (12-78); ALBUMIN 3.1 G/DL (3.4-5.0); ALBUMIN/GLOBULIN RATIO 0.6 (1.0-2.7); ALKALINE PHOSPHATASE 62 U/L (46-116); ANION GAP 12 mmol/L (5-15); ASPARTATE AMINO TRANSFERASE 19 U/L (15-37); BILIRUBIN,TOTAL 0.5 MG/DL (0.2-1.0); BLOOD UREA NITROGEN 52 mg/dL (7-18); CARBON DIOXIDE 22 MMOL/L (21-32); CHLORIDE 106 MMOL/L (98-107); CHOLESTEROL 181 MG/DL (< 200); CREATININE 2.8 MG/DL (0.55-1.30); HDL CHOLESTEROL 44 MG/DL (40-60); POTASSIUM 4.6 MMOL/L (3.5-5.1); SODIUM 140 MMOL/L (136-145); TRIGLYCERIDES 54 MG/DL (30-150)
[2017-08-28] MEDS: Depakote ER 250mg tab ORAL SCH ×2 (09:24→21:24)
[2017-08-28] MEDS: dilTIAZem HCl CD 240mg cap ORAL SCH (09:24)
[2017-08-28] MEDS: Digoxin 0.125mg tab ORAL SCH (09:25)
[2017-08-28] MEDS: Tamsulosin 0.4mg cap ORAL SCH ×2 (09:26→21:25)
[2017-08-28 10:04] LABS: PHOSPHORUS 3.6 MG/DL (2.5-4.9)
--- NOTE | 2017-08-28 10:07 | Pulmonology Progress Note ---
Assessment/Plan Problems: (1) At high risk for aspiration (2) CHF exacerbation (3) Acute on chronic renal insufficiency (4) Vascular dementia with behavior disturbance (5) Hemiplegia affecting right dominant side (6) Afib (7) Cardiomyopathy Assessment/Plan heart rate controlled, still flutter diuresing well. so far -800 negative respiratory treatment check sputum swallow study titrate cardiac meds. check INR. d/w at the bed site Subjective ROS Limited/Unobtainable: No Interval Events: still coguhing a lot Constitutional: Reports: no symptoms HEENT: Repors: no symptoms Respiratory: Reports: no symptoms Allergies: Coded Allergies: MARYANA INHIBITORS (Unverified Allergy, Unknown, 01/31/14) ARB-ANGIOTENSIN RECEPTOR ANTAGONIST (Unverified Allergy, Unknown, 01/31/14) Objective Last 24 Hour Vital Signs Date Time Temp Pulse Resp B/P (MAP) Pulse Ox O2 Delivery O2 Flow Rate FiO2 08/28/17 09:25 81 08/28/17 09:24 81 114/70 08/28/17 08:54 98 Room Air 21 08/28/17 08:54 Room Air 21 08/28/17 08:00 98.3 81 18 114/70 97 Room Air 98.3 08/28/17 08:00 70 08/28/17 05:34 67 124/72 08/28/17 05:34 124/72 08/28/17 05:33 124/72 08/28/17 04:00 97.9 67 20 124/72 96 Room Air 97.9 08/28/17 04:00 72 08/28/17 02:01 79 20 100 Room Air 21 08/28/17 01:59 68 20 98 Room Air 21 08/28/17 00:00 97.8 73 20 130/71 99 Room Air 97.8 08/28/17 00:00 78 08/27/17 21:33 63 135/70 08/27/17 21:33 135/70 08/27/17 21:33 135/70 08/27/17 20:00 98.7 99 22 135/70 100 Room Air 98.7 08/27/17 20:00 63 08/27/17 19:30 96 Room Air 21 08/27/17 19:30 Room Air 21 08/27/17 16:00 74 08/27/17 16:00 98.1 69 20 127/77 98 Room Air 98.1 08/27/17 15:41 69 20 100 Room Air 21 08/27/17 15:30 69 20 98 Room Air 21 08/27/17 15:29 97 Room Air 21 08/27/17 14:44 67 146/83 08/27/17 14:44 146/83 08/27/17 14:44 146/83 08/27/17 12:00 97.7 67 20 146/83 98 Room Air 97.7 08/27/17 12:00 84 Intake and Output 08/27/17 08/28/17 19:00 07:00 Intake Total 120 ml 100 ml Output Total 167 ml Balance -47 ml 100 ml Intake Oral 120 ml 100 ml Post Void Residual 167 ml Bladder Scan Volume Amount 151-200 ml # Voids 1 General Appearance: WD/WN HEENT: normocephalic, atraumatic Cardiovascular: normal peripheral pulses, normal rate Abdomen: normal bowel sounds, no organomegaly Extremities: no cyanosis Skin: no rash Neurologic/Psychiatric: hospital administrative assistant II-XII 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 Microbiology Date/Time Source Procedure Growth Status 08/26/17 16:00 Blood Blood Culture - Preliminary NO GROWTH AFTER 24 HOURS Resulted 08/26/17 15:50 Blood Blood Culture - Preliminary NO GROWTH AFTER 24 HOURS Resulted Laboratory Tests 08/27/17 11:04: Prothrombin Time 37.9H, Prothromb Time International Ratio 3.6H 08/28/17 07:30: Prothrombin Time 28.2H, Prothromb Time International Ratio 2.7H, White Blood Count 5.3, Red Blood Count 3.90L, Hemoglobin 11.9L, Hematocrit 34.7L, Mean Corpuscular Volume 89, Mean Corpuscular Hemoglobin 30.4, Mean Corpuscular Hemoglobin Concent 34.2, Red Cell Distribution Width 14.0, Platelet Count 122L, Mean Platelet Volume 8.2, Neutrophils (%) (Auto) 42.8L, Lymphocytes (%) (Auto) 39.5, Monocytes (%) (Auto) 13.2H, Eosinophils (%) (Auto) 4.1H, Basophils (%) ( Auto) 0.4, Sodium Level 140, Potassium Level 4.6, Chloride Level 106, Carbon Dioxide Level 22, Anion Gap 12, Blood Urea Nitrogen 52H, Creatinine 2.8H, Estimat Glomerular Filtration Rate , Glucose Level 99, Hemoglobin A1c 6.5H, Uric Acid [Pending], Calcium Level 9.0, Phosphorus Level [Pending], Magnesium Level [Pending], Total Bilirubin 0.5, Gamma Glutamyl Transpeptidase [Pending], Aspartate Amino Transf (AST/SGOT) 19, Alanine Aminotransferase (ALT/SGPT) 19, Alkaline Phosphatase 62, Troponin I [Pending], Pro-B-Type Natriuretic Peptide 2377H, Total Protein 8.2, Albumin 3.1L, Globulin 5.1, Albumin/Globulin Ratio 0.6L, Triglycerides Level 54, Cholesterol Level 181, LDL Cholesterol 123H, HDL Cholesterol 44, Cholesterol/HDL Ratio 4.1, Vitamin B12 Level 643, Folate 9.6, Thyroid Stimulating Hormone (TSH) 3.390 Current Medications Medications (Trade) Dose Ordered Sig/Con Route PRN Reason Start Time Stop Time Status Last Admin Dose Admin Acetaminophen (Tylenol) 325 mg Q4H PRN ORAL Mild Pain (Pain Scale 1-3) 08/26/17 22:15 09/25/17 22:14 Albuterol/ Ipratropium (Albuterol/ Ipratropium) 3 ml Q4HRT PRN HHN Shortness of Breath 08/26/17 21:45 08/31/17 21:44 08/28/17 01:59 Artificial Tears (Akwa-Tears) 1 drop Q6HR PRN BOTH EYES dry eyes 08/26/17 22:00 09/25/17 21:59 Digoxin (Lanoxin) 0.125 mg DAILY ORAL 08/27/17 09:00 09/26/17 08:59 08/28/17 09:25 Diltiazem HCl (Cardizem CD) 240 mg DAILY ORAL 08/27/17 09:00 09/26/17 08:59 08/28/17 09:24 Divalproex Sodium (Depakote ER) 250 mg EVERY 12 HOURS ORAL 08/27/17 09:00 09/26/17 08:59 08/28/17 09:24 Furosemide (Lasix) 40 mg DAILY IV 08/27/17 09:00 09/26/17 08:59 08/28/17 09:24 Guaifenesin (Robitussin) 200 mg Q6HR PRN ORAL For Cough 08/26/17 22:15 09/25/17 22:14 6/3/18 06:43 Hydralazine HCl (Apresoline) 25 mg Q8HR ORAL 08/27/17 06:00 09/26/17 05:59 08/28/17 05:33 Isosorbide Dinitrate (Isordil) 10 mg Q8HR ORAL 08/27/17 06:00 09/26/17 05:59 08/28/17 05:34 Levetiracetam (Keppra) 1,500 mg Q12HR ORAL 08/27/17 09:00 09/26/17 08:59 08/28/17 09:25 Levofloxacin (Levaquin) 250 mg DAILY ORAL 08/28/17 09:00 09/04/17 08:59 08/28/17 09:25 Levothyroxine Sodium (Synthroid) 75 mcg DAILY@0630 ORAL 08/27/17 06:30 09/26/17 06:29 08/28/17 05:35 Metoprolol Tartrate (Lopressor) 50 mg Q8HR ORAL 08/27/17 06:00 09/26/17 05:59 08/28/17 05:34 Tamsulosin HCl (Flomax) 0.4 mg Q12HR ORAL 08/27/17 13:30 09/26/17 13:29 08/28/17 09:26 Warfarin Sodium (Coumadin per pharmacy) 1 ea DAILY PRN MISC Per rx protocol 08/26/17 22:45 09/25/17 22:44 Warfarin Sodium (Coumadin) 2.5 mg COUMADIN ONCE ORAL 08/28/17 17:00 08/28/17 17:01 Warner Trujillo MD Aug 28, 2017 10:07
--- NOTE | 2017-08-28 10:45 | Diagnostic Imaging Report ---
INDICATION: Dyspnea COMPARISON: Chest x-ray dated 08/26/17 FINDINGS: Single frontal view demonstrates a prominent heart size. Increased pulmonary markings suggestive of congestion. Atherosclerotic vascular disease. No pleural effusions. The visualized osseous structures are within normal limits. IMPRESSION: No significant change. Prominent heart size. Increased pulmonary markings suggestive of congestion.
--- NOTE | 2017-08-28 11:17 | Diagnostic Imaging Report ---
INDICATION: Renal insufficiency TECHNIQUE: Real time imaging of the kidneys is performed in sagittal and transverse projections. COMPARISON: None FINDINGS: The kidneys are normal in size, with the left kidney measuring 10.5 cm and the right measuring 11.6 cm. There is no evidence of hydronephrosis or solid mass lesions. Bilateral renal cysts the largest in the right kidney measures 16 mm. The largest in the left kidney measures 2.6 cm. 5 mm nonobstructing left renal parenchymal calcification. IMPRESSION: 1. Bilateral renal cysts, largest in the left kidney measuring 2.6 cm. 2. 5 mm nonobstructing left renal parenchymal calcification. No hydroureteronephrosis.
[2017-08-28 12:00] VITALS: BP 112/81
--- NOTE | 2017-08-28 15:27 | Nephrology Progress Note ---
Assessment/Plan Problem List: (1) Acute renal failure (2) Seizure disorder (3) CVA (cerebral infarction) Assessment Renal failure due to pre renal azotemia due to underlying CHF- Cr 2.4 ? underlying CKD others: Acute Asthma/copd exacerbation vs CHF exacerbation Breakthrough seizures/status epilepticus, Cerebrovascular accident with right hemiplegia. Congestive heart failure - diastolic with the preserved ejection fraction. Benign prostatic hypertrophy. h/o Pneumonia- SVT , At fib- on anti coag h/o DVT- h/o HypoThyroidism h/o Gout Dementia HTN Plan Optimize cardiac and pulmonary status monitor renal parameters- avoid nephrotoxics- flomax adjust bp meds hold lasix kidneyUTZ noted Subjective ROS Limited/Unobtainable: No Constitutional: Reports: malaise Objective Objective Last 24 Hour Vital Signs Date Time Temp Pulse Resp B/P (MAP) Pulse Ox O2 Delivery O2 Flow Rate FiO2 08/28/17 13:29 77 112/81 08/28/17 13:29 112/81 08/28/17 13:29 112/81 08/28/17 12:45 77 18 99 Room Air 21 08/28/17 12:33 72 18 96 Room Air 21 08/28/17 12:00 77 08/28/17 12:00 98.2 73 20 112/81 97 Room Air 98.2 08/28/17 09:25 81 08/28/17 09:24 81 114/70 08/28/17 08:54 98 Room Air 21 08/28/17 08:54 Room Air 21 08/28/17 08:00 98.3 81 18 114/70 97 Room Air 98.3 08/28/17 08:00 70 08/28/17 05:34 67 124/72 08/28/17 05:34 124/72 08/28/17 05:33 124/72 08/28/17 04:00 97.9 67 20 124/72 96 Room Air 97.9 08/28/17 04:00 72 08/28/17 02:01 79 20 100 Room Air 21 08/28/17 01:59 68 20 98 Room Air 21 08/28/17 00:00 97.8 73 20 130/71 99 Room Air 97.8 08/28/17 00:00 78 08/27/17 21:33 63 135/70 08/27/17 21:33 135/70 08/27/17 21:33 135/70 08/27/17 20:00 98.7 99 22 135/70 100 Room Air 98.7 08/27/17 20:00 63 08/27/17 19:30 96 Room Air 21 08/27/17 19:30 Room Air 21 08/27/17 16:00 74 08/27/17 16:00 98.1 69 20 127/77 98 Room Air 98.1 08/27/17 15:41 69 20 100 Room Air 21 08/27/17 15:30 69 20 98 Room Air 21 08/27/17 15:29 97 Room Air 21 Intake and Output 08/27/17 08/28/17 19:00 07:00 Intake Total 120 ml 100 ml Output Total 167 ml Balance -47 ml 100 ml Intake Oral 120 ml 100 ml Post Void Residual 167 ml Bladder Scan Volume Amount 151-200 ml # Voids 1 Laboratory Tests 08/28/17 07:30: White Blood Count 5.3, Red Blood Count 3.90L, Hemoglobin 11.9L, Hematocrit 34.7L , Mean Corpuscular Volume 89, Mean Corpuscular Hemoglobin 30.4, Mean Corpuscular Hemoglobin Concent 34.2, Red Cell Distribution Width 14.0, Platelet Count 122L, Mean Platelet Volume 8.2, Neutrophils (%) (Auto) 42.8L, Lymphocytes (%) (Auto) 39.5, Monocytes (%) (Auto) 13.2H, Eosinophils (%) (Auto) 4.1H, Basophils (%) (Auto) 0.4, Prothrombin Time 28.2H, Prothromb Time International Ratio 2.7H, Sodium Level 140, Potassium Level 4.6, Chloride Level 106, Carbon Dioxide Level 22, Anion Gap 12, Blood Urea Nitrogen 52H, Creatinine 2.8H, Estimat Glomerular Filtration Rate , Glucose Level 99, Hemoglobin A1c 6.5H, Uric Acid 9.7H, Calcium Level 9.0, Phosphorus Level 3.6, Magnesium Level 2.0, Total Bilirubin 0.5, Gamma Glutamyl Transpeptidase 127H, Aspartate Amino Transf (AST/SGOT) 19, Alanine Aminotransferase (ALT/SGPT) 19, Alkaline Phosphatase 62, Troponin I 0.037, Pro-B-Type Natriuretic Peptide 2377H, Total Protein 8.2, Albumin 3.1L, Globulin 5.1, Albumin/Globulin Ratio 0.6L, Triglycerides Level 54 , Cholesterol Level 181, LDL Cholesterol 123H, HDL Cholesterol 44, Cholesterol/ HDL Ratio 4.1, Vitamin B12 Level 643, Folate 9.6, Thyroid Stimulating Hormone ( TSH) 3.390, Digoxin Level 1.7 Height (Feet): 6 Height (Inches): 1.00 Weight (Pounds): 199 General Appearance: no apparent distress, lethargic Cardiovascular: normal rate Respiratory/Chest: other - breathing easier Abdomen: soft, distended MARIA M YU Aug 28, 2017 15:27
[2017-08-28 16:00] VITALS: BP 117/66
--- NOTE | 2017-08-28 16:16 | Cardiology Report ---
APPROVED REPORT EXAM: Two-dimensional and M-mode echocardiogram with Doppler and color Doppler. INDICATION Congestive Heart Failure M-Mode DIMENSIONS IVSd1.1 (0.7-1.1cm)Left Atrium (MM)4.4 (1.6-4.0cm) LVDd4.5 (3.5-5.6cm)Aortic Root3.0 (2.0-3.7cm) PWd1.2 (0.7-1.1cm)Aortic Cusp Exc.1.8 (1.5-2.0cm) LVDs3.0 (2.5-4.0cm) PWs1.2 cm Normal left ventricular chamber size, systolic function and wall motion. Left ventricular ejection fraction estimated to be 60-65%. No evidence of left ventricular hypertrophy. Small posterior pericardial effusion. Right cardiac chamber sizes are within normal limits. Mild left atrial enlargement by 2D. Focal aortic valve sclerosis with adequate cusp excursion. Thickened mitral valve leaflets with normal excursion. Mild mitral annulus and aortic root calcification. Pulmonic valve not well visualized. Normal tricuspid valve structure. IVC is normal in size and collapsible with respiration. A color flow and spectral Doppler study was performed and revealed: No aortic regurgitation. Trace mitral regurgitation. Mitral inflow velocities indicates possible pseudo normalization pattern implying significant left ventricular diastolic dysfunction. No tricuspid regurgitation. Pulmonic regurgitation present.
[2017-08-28] MEDS ORDERED: Warfarin Sodium 2.5mg ORAL ONE (17:00)
[2017-08-28] MEDS: Docusate 100mg cap ORAL SCH (17:06)
[2017-08-28 20:00] VITALS: BP 106/59
--- NOTE | 2017-08-28 23:00 | Consultation ---
DATE OF CONSULTATION: 08/28/2017 CARDIOLOGY CONSULTATION CONSULTING PHYSICIAN: Tj Crespo M.D. REFERRING PHYSICIAN: Ondina Geiger M.D. REASON FOR CONSULTATION: Management of shortness of breath. HISTORY OF PRESENT ILLNESS: The patient is a very pleasant 82-year-old gentleman, who presents to the hospital with productive cough as well as congestion for just about a day. The patient is a resident of a nursing facility, has had history of congestive heart failure in the past. At the time of arrival to the emergency department, he denies any fever or chills. He is a very poor historian due to prior history of CVA/TIA, elements of dementia and encephalopathy per records. At the time of arrival to the emergency department, initial blood pressure was 111/66 mmHg and heart rate of 62. A 12-lead electrocardiogram was significant for atrial fibrillation with slow ventricular response and T-wave changes suggestive of LVH repolarization abnormalities, heart rate of 55. There was no acute ischemic features on the 12-lead electrocardiogram. PAST MEDICAL HISTORY: Hypertension, COPD, CVA/TIA, dementia, seizures, encephalopathy, hypothyroidism, MRSA and VRE. PAST SURGICAL HISTORY: None. MEDICATIONS: List of medication in the nursing facility includes acetaminophen 325 mg q.4 h.p.r.n. mild pain, albuterol 3 mL inhaler q.4 h. p.r.n. shortness of breath, digoxin 125 mcg p.o. daily, diltiazem 240 mg p.o. daily, Depakote 250 mg q.12 h., guaifenesin 10 mL q.6 h. p.r.n. cough, hydralazine 25 mg q.8 h., isosorbide dinitrate 10 mg p.o. q.8 h., levothyroxine 75 mcg p.o. daily, loratadine 10 mg p.o. daily, metoprolol 50 mg q.8 h., tamsulosin 0.4 mg at bedtime and polyvinyl alcohol 15 mL OP every six hours p.r.n. both eyes. ALLERGIES: To MARYANA inhibitors as well as angiotensin receptor blockers. SOCIAL HISTORY: Resident of a nursing facility. Denies any tobacco, alcohol or illicit drug use at this time. REVIEW OF SYSTEMS: HEENT: Denies any headache, diplopia, or blurred vision. CONSTITUTIONAL: Denies any fever, chills, night sweats, weight gain or weight loss. CARDIOVASCULAR: Denies any chest pain. He has shortness of breath. Denies any PND, orthopnea, leg swelling, syncope, or palpitation. PULMONARY: He has got productive cough with no hemoptysis. Admits to wheezing. GENITOURINARY: Denies any hematuria, dysuria, or incontinence. NEUROLOGY: Denies any motor dysfunction, sensory deficit, or altered speech. PHYSICAL EXAMINATION: GENERAL: The patient is a very unfortunate 82-year-old gentleman who is awake and answering questions appropriately. He does not appear to be in respiratory distress. VITAL SIGNS: Blood pressure was 111/66, respirations 20, pulse of 62, O2 saturation 95% on room air, and temperature 97.8 degrees Fahrenheit. HEENT: Atraumatic and normocephalic. ENT, pupils are equal, round, and reactive to light and accommodation. The extraocular muscles intact. NECK: JVP cannot be assessed due to the patient's short neck and obesity. No carotid bruit. CARDIOVASCULAR: Normal S1 and S2. Irregularly irregular rhythm. A 2/6 mid systolic murmur at the left sternal border. PMI is at 4th intercostal space at the midclavicular line. LUNGS: Bilateral rhonchi with prolonged expiratory phase. ABDOMEN: Soft, nontender, and nondistended. No hepatosplenomegaly. Positive bowel sounds. EXTREMITIES: No evidence of edema, clubbing, or cyanosis. LABORATORY AND DIAGNOSTIC DATA: Chest x-ray at the time of arrival to the hospital showed suspected mild interstitial edema with cardiomegaly and 12-lead electrocardiogram shows atrial fibrillation with slow ventricular response at heart rate of 55 with LVH, repolarization abnormality and no acute ST and T-wave abnormalities. Laboratory findings, sodium was 140, potassium is 5.1, chloride 105, bicarbonate 24, BUN of 44, creatinine 2.5 and glucose is 109. Calcium is 8.9. ProBNP was 2804. WBC 5.3, hemoglobin of 12.7, hematocrit 38.3, and platelet count is 125. INR is 3.8. Digoxin level was 1.4. ASSESSMENT AND PLAN: The patient is a very unfortunate 82-year-old gentleman, seen in Cardiology consultation at the request of Dr. Geiger. 1. Dyspnea, to me the predominant component of dyspnea is acute exacerbation of chronic obstructive pulmonary disease, which is most likely superimposed and acute bronchitis. The patient will benefit from aggressive inhaler and pulmonary toilet as well as Solu-Medrol. There might be some very mild element of congestive heart failure due to hypertensive heart disease. I would place a hold on aggressive diuretic therapy at this point and the patient might benefit from low-dose oral furosemide at the time of discharge. 2. History of cerebrovascular accident/transient ischemic attack. He will benefit from aspirin and statins. 3. Most likely permanent atrial fibrillation. The patient's INR was supratherapeutic at the time of arrival. It appears that the patient is on warfarin therapy for prevention of thromboembolic events. Keep the INR level between 2 and 3. I would like to thank, Dr. Geiger, for the courtesy of this consultation. Tj Crespo M.D. DR: ELIZABETH JOB#: [id number] CC:
[2017-08-29] VITALS: BP 124/65
[2017-08-29 04:00] VITALS: BP 128/70
[2017-08-29] MEDS: guaiFENesin 100mg/5ml Liq ud ORAL PRN ×2 (05:58→17:36)
[2017-08-29] MEDS: HydrALAZINE 25mg tab ORAL SCH ×3 (06:02→21:32)
[2017-08-29] MEDS: Metoprolol Tartrate 50mg tab ORAL SCH ×3 (06:02→21:31)
[2017-08-29] MEDS: Albuterol/Ipratropium 3ml neb HHN PRN ×2 (06:13→16:32)
[2017-08-29 07:35] LABS: INR 2.1 (0.9-1.1)
[2017-08-29 08:00] VITALS: BP 117/76
[2017-08-29] MEDS: Tamsulosin 0.4mg cap ORAL SCH ×2 (09:17→21:32)
[2017-08-29] MEDS: Depakote ER 250mg tab ORAL SCH ×2 (09:17→21:31)
[2017-08-29] MEDS: Docusate 100mg cap ORAL SCH ×3 (09:18→17:34)
[2017-08-29] MEDS: dilTIAZem HCl CD 240mg cap ORAL SCH (09:18)
--- NOTE | 2017-08-29 11:28 | General Progress Note ---
Assessment/Plan Assessment/Plan S: I am ok O: appears in mild sob. mild wheezing, no chest pain, at the bed side. persistent cough PHYSICAL EXAMINATION: HEAD AND NECK: Atraumatic and normocephalic. CHEST: Bronchial BS, diffuse wheezing HEART: S1 and S2. IRegular rate and rhythm. ABDOMEN: Soft. No organomegaly. MUSCULOSKELETAL: Positive for right hemiplegia at baseline. NEUROLOGY: The patient is awake. right side weakness, alert and oriented x2 at baseline. Meds: reviewed and reconciled in the chart, including Levaquin 500 mg daily ASSESSMENT AND PLAN: 1. Acute Asthma/copd exacerbation vs CHF exacerbation 2. seizures- h/o of . stable 2. Dementia. 3. Cerebrovascular accident with right hemiplegia. 4. Atrial fibrillation with controlled rate. 5. Congestive heart failure - diastolic with the preserved ejection fraction. 6. Hypothyroidism. 7. Hypertension. 8. Acute on chronic renal failure, 9. Benign prostatic hypertrophy. 10. Gastrointestinal and deep vein thrombosis prophylaxes. PLAN OF CARE: pending labs will check INR started Pulmicort. I will followup Subjective Allergies: Coded Allergies: MARYANA INHIBITORS (Unverified Allergy, Unknown, 01/31/14) ARB-ANGIOTENSIN RECEPTOR ANTAGONIST (Unverified Allergy, Unknown, 01/31/14) Objective Last 24 Hour Vital Signs Date Time Temp Pulse Resp B/P (MAP) Pulse Ox O2 Delivery O2 Flow Rate FiO2 08/29/17 09:18 76 117/76 08/29/17 08:00 80 08/29/17 08:00 97.1 76 18 117/76 99 Room Air 2.0 21 97.1 08/29/17 06:16 76 18 Room Air 08/29/17 06:15 Room Air 08/29/17 06:15 99 Room Air 21 08/29/17 06:05 79 18 99 Room Air 21 08/29/17 06:02 78 124/67 08/29/17 06:02 124/67 08/29/17 06:02 124/67 08/29/17 06:00 76 18 95 Room Air 21 08/29/17 04:00 98.4 73 18 128/70 96 Room Air 98.4 08/29/17 03:46 74 08/29/17 00:00 98.1 76 18 124/65 95 Room Air 98.1 08/28/17 23:46 76 08/28/17 21:26 121/71 08/28/17 21:26 121/71 08/28/17 21:25 78 121/71 08/28/17 20:00 98.6 76 19 106/59 94 Room Air 98.6 08/28/17 19:30 Room Air 08/28/17 19:30 98 Room Air 08/28/17 19:02 72 08/28/17 16:00 97.6 79 20 117/66 98 Room Air 97.6 08/28/17 16:00 70 08/28/17 13:29 77 112/81 08/28/17 13:29 112/81 08/28/17 13:29 112/81 08/28/17 12:45 77 18 99 Room Air 08/28/17 12:33 72 18 96 Room Air 08/28/17 12:00 77 08/28/17 12:00 98.2 73 20 112/81 97 Room Air 98.2 Intake and Output 08/28/17 08/29/17 19:00 07:00 Intake Total 620 ml 240 ml Balance 620 ml 240 ml Intake Oral 620 ml 240 ml # Voids 3 2 # Bowel Movements 1 Laboratory Tests 08/29/17 06:20: Prothrombin Time 22.0H, Prothromb Time International Ratio 2.1H Height (Feet): 6 Height (Inches): 1.00 Weight (Pounds): 199 Ondina Geiger MD Aug 29, 2017 11:28
[2017-08-29 12:00] VITALS: BP 137/65
--- NOTE | 2017-08-29 12:12 | Pulmonology Progress Note ---
Assessment/Plan Problems: (1) At high risk for aspiration (2) CHF exacerbation (3) Acute on chronic renal insufficiency (4) Vascular dementia with behavior disturbance (5) Hemiplegia affecting right dominant side (6) Afib (7) Cardiomyopathy Assessment/Plan videow swallow study on levofloxacin heart rate controlled, still flutter diuresing well. respiratory treatment check sputum swallow study titrate cardiac meds. check INR. d/w at the bed site Subjective ROS Limited/Unobtainable: No Interval Events: awake, swallow study being done Allergies: Coded Allergies: MARYANA INHIBITORS (Unverified Allergy, Unknown, 01/31/14) ARB-ANGIOTENSIN RECEPTOR ANTAGONIST (Unverified Allergy, Unknown, 01/31/14) Objective Last 24 Hour Vital Signs Date Time Temp Pulse Resp B/P (MAP) Pulse Ox O2 Delivery O2 Flow Rate FiO2 08/29/17 12:00 98.1 84 20 137/65 96 98.1 08/29/17 09:18 76 117/76 08/29/17 08:00 80 08/29/17 08:00 97.1 76 18 117/76 99 Room Air 2.0 21 97.1 08/29/17 06:16 76 18 Room Air 08/29/17 06:15 Room Air 08/29/17 06:15 99 Room Air 21 08/29/17 06:05 79 18 99 Room Air 21 08/29/17 06:02 78 124/67 08/29/17 06:02 124/67 08/29/17 06:02 124/67 08/29/17 06:00 76 18 95 Room Air 21 08/29/17 04:00 98.4 73 18 128/70 96 Room Air 98.4 08/29/17 03:46 74 08/29/17 00:00 98.1 76 18 124/65 95 Room Air 98.1 08/28/17 23:46 76 08/28/17 21:26 121/71 08/28/17 21:26 121/71 08/28/17 21:25 78 121/71 08/28/17 20:00 98.6 76 19 106/59 94 Room Air 98.6 08/28/17 19:30 Room Air 21 08/28/17 19:30 98 Room Air 21 08/28/17 19:02 72 6/3/18 16:00 97.6 79 20 117/66 98 Room Air 97.6 08/28/17 16:00 70 08/28/17 13:29 77 112/81 08/28/17 13:29 112/81 08/28/17 13:29 112/81 08/28/17 12:45 77 18 99 Room Air 21 08/28/17 12:33 72 18 96 Room Air 21 Intake and Output 08/28/17 08/29/17 19:00 07:00 Intake Total 620 ml 240 ml Balance 620 ml 240 ml Intake Oral 620 ml 240 ml # Voids 3 2 # Bowel Movements 1 General Appearance: WD/WN HEENT: normocephalic, atraumatic Respiratory/Chest: chest wall non-tender, lungs clear Cardiovascular: normal peripheral pulses, normal rate Abdomen: normal bowel sounds Genitourinary: normal external genitalia Extremities: no clubbing 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, normal mood/affect Microbiology Date/Time Source Procedure Growth Status 08/26/17 16:00 Blood Blood Culture - Preliminary NO GROWTH AFTER 48 HOURS Resulted 08/26/17 15:50 Blood Blood Culture - Preliminary NO GROWTH AFTER 48 HOURS Resulted 08/28/17 16:00 Sputum Gram Stain - Final Resulted 08/28/17 16:00 Sputum Sputum Culture - Preliminary Resulted Laboratory Tests 08/29/17 06:20: Prothrombin Time 22.0H, Prothromb Time International Ratio 2.1H Current Medications Medications (Trade) Dose Ordered Sig/Con Route PRN Reason Start Time Stop Time Status Last Admin Dose Admin Acetaminophen (Tylenol) 325 mg Q4H PRN ORAL Mild Pain (Pain Scale 1-3) 08/26/17 22:15 09/25/17 22:14 Albuterol/ Ipratropium (Albuterol/ Ipratropium) 3 ml Q4HRT PRN HHN Shortness of Breath 08/26/17 21:45 08/31/17 21:44 08/29/17 06:13 Artificial Tears (Akwa-Tears) 1 drop Q6HR PRN BOTH EYES dry eyes 08/26/17 22:00 09/25/17 21:59 Diltiazem HCl (Cardizem CD) 240 mg DAILY ORAL 08/27/17 09:00 09/26/17 08:59 08/29/17 09:18 Divalproex Sodium (Depakote ER) 250 mg EVERY 12 HOURS ORAL 08/27/17 09:00 09/26/17 08:59 08/29/17 09:17 Docusate Sodium (Colace) 100 mg THREE TIMES A DAY ORAL 08/28/17 18:00 09/27/17 17:59 08/29/17 09:18 Guaifenesin (Robitussin) 200 mg Q6HR PRN ORAL For Cough 08/26/17 22:15 09/25/17 22:14 08/29/17 05:58 Hydralazine HCl (Apresoline) 25 mg Q8HR ORAL 08/27/17 06:00 09/26/17 05:59 08/29/17 06:02 Isosorbide Dinitrate (Isordil) 10 mg Q8HR ORAL 08/27/17 06:00 09/26/17 05:59 08/29/17 06:02 Levetiracetam (Keppra) 1,500 mg Q12HR ORAL 08/27/17 09:00 09/26/17 08:59 08/29/17 09:18 Levofloxacin (Levaquin) 250 mg DAILY ORAL 08/28/17 09:00 09/04/17 08:59 08/29/17 09:18 Levothyroxine Sodium (Synthroid) 75 mcg DAILY@0630 ORAL 08/27/17 06:30 09/26/17 06:29 08/29/17 06:01 Metoprolol Tartrate (Lopressor) 50 mg Q8HR ORAL 08/27/17 06:00 09/26/17 05:59 08/29/17 06:02 Tamsulosin HCl (Flomax) 0.4 mg Q12HR ORAL 08/27/17 13:30 09/26/17 13:29 08/29/17 09:17 Warfarin Sodium (Coumadin per pharmacy) 1 ea DAILY PRN MISC Per rx protocol 08/26/17 22:45 09/25/17 22:44 Warfarin Sodium (Coumadin) 2.5 mg COUMADIN ORAL 08/29/17 17:00 08/29/17 18:00 Warner Trujillo MD Aug 29, 2017 12:12
--- NOTE | 2017-08-29 12:30 | General Progress Note ---
Assessment/Plan Status: stable Assessment/Plan schizoaffective d/o cognitive impairment -depakote er 250mg bid -provided ro/st Subjective Date patient seen: Aug 29, 2017 Neurologic/Psychiatric: Reports: anxiety, depressed, emotional problems Allergies: Coded Allergies: MARYANA INHIBITORS (Unverified Allergy, Unknown, 01/31/14) ARB-ANGIOTENSIN RECEPTOR ANTAGONIST (Unverified Allergy, Unknown, 01/31/14) Objective Last 24 Hour Vital Signs Date Time Temp Pulse Resp B/P (MAP) Pulse Ox O2 Delivery O2 Flow Rate FiO2 08/29/17 12:00 98.1 84 20 137/65 96 98.1 08/29/17 09:18 76 117/76 08/29/17 08:00 80 08/29/17 08:00 97.1 76 18 117/76 99 Room Air 2.0 21 97.1 08/29/17 06:16 76 18 Room Air 08/29/17 06:15 Room Air 08/29/17 06:15 99 Room Air 21 08/29/17 06:05 79 18 99 Room Air 21 08/29/17 06:02 78 124/67 08/29/17 06:02 124/67 08/29/17 06:02 124/67 08/29/17 06:00 76 18 95 Room Air 21 08/29/17 04:00 98.4 73 18 128/70 96 Room Air 98.4 08/29/17 03:46 74 08/29/17 00:00 98.1 76 18 124/65 95 Room Air 98.1 08/28/17 23:46 76 08/28/17 21:26 121/71 08/28/17 21:26 121/71 08/28/17 21:25 78 121/71 08/28/17 20:00 98.6 76 19 106/59 94 Room Air 98.6 08/28/17 19:30 Room Air 21 08/28/17 19:30 98 Room Air 21 08/28/17 19:02 72 08/28/17 16:00 97.6 79 20 117/66 98 Room Air 97.6 08/28/17 16:00 70 08/28/17 13:29 77 112/81 08/28/17 13:29 112/81 08/28/17 13:29 112/81 6/3/18 12:45 77 18 99 Room Air 21 08/28/17 12:33 72 18 96 Room Air 21 Intake and Output 08/28/17 08/29/17 19:00 07:00 Intake Total 620 ml 240 ml Balance 620 ml 240 ml Intake Oral 620 ml 240 ml # Voids 3 2 # Bowel Movements 1 Laboratory Tests 08/29/17 06:20: Prothrombin Time 22.0H, Prothromb Time International Ratio 2.1H Height (Feet): 6 Height (Inches): 1.00 Weight (Pounds): 199 General Appearance: no apparent distress, alert Neurologic: oriented x 3, responsive, depressed affect Rufus Velasquez M.D. Aug 29, 2017 12:29
[2017-08-29] MEDS: Budesonide HHN 0.25mg/2ml ud HHN SCH ×2 (13:00→21:15)
[2017-08-29 16:00] VITALS: BP 119/79
[2017-08-29] MEDS ORDERED: Warfarin Sodium 2.5mg ORAL SCH (17:00)
--- NOTE | 2017-08-29 17:22 | Nephrology Progress Note ---
Assessment/Plan Problem List: (1) Acute renal failure (2) Seizure disorder (3) CVA (cerebral infarction) Assessment Renal failure due to pre renal azotemia due to underlying CHF- Cr 2.4 ? underlying CKD others: Acute Asthma/copd exacerbation vs CHF exacerbation Breakthrough seizures/status epilepticus, Cerebrovascular accident with right hemiplegia. Congestive heart failure - diastolic with the preserved ejection fraction. Benign prostatic hypertrophy. h/o Pneumonia- SVT , At fib- on anti coag h/o DVT- h/o HypoThyroidism h/o Gout Dementia HTN Plan no labs today Optimize cardiac and pulmonary status monitor renal parameters- avoid nephrotoxics- flomax adjust bp meds hold lasix kidneyUTZ noted Subjective ROS Limited/Unobtainable: No Constitutional: Reports: malaise, weakness Objective Objective Last 24 Hour Vital Signs Date Time Temp Pulse Resp B/P (MAP) Pulse Ox O2 Delivery O2 Flow Rate FiO2 08/29/17 16:34 74 18 99 Room Air 21 08/29/17 16:28 73 18 96 Room Air 21 08/29/17 16:00 72 08/29/17 16:00 98.4 80 22 119/79 95 98.4 08/29/17 13:41 84 137/65 08/29/17 13:40 137/65 08/29/17 13:40 137/65 08/29/17 12:00 98.1 84 20 137/65 96 98.1 08/29/17 12:00 80 08/29/17 09:18 76 117/76 08/29/17 08:00 80 08/29/17 08:00 97.1 76 18 117/76 99 Room Air 2.0 21 97.1 08/29/17 06:16 76 18 Room Air 08/29/17 06:15 Room Air 08/29/17 06:15 99 Room Air 21 08/29/17 06:05 79 18 99 Room Air 21 08/29/17 06:02 78 124/67 08/29/17 06:02 124/67 08/29/17 06:02 124/67 08/29/17 06:00 76 18 95 Room Air 21 08/29/17 04:00 98.4 73 18 128/70 96 Room Air 98.4 08/29/17 03:46 74 08/29/17 00:00 98.1 76 18 124/65 95 Room Air 98.1 08/28/17 23:46 76 08/28/17 21:26 121/71 08/28/17 21:26 121/71 08/28/17 21:25 78 121/71 08/28/17 20:00 98.6 76 19 106/59 94 Room Air 98.6 08/28/17 19:30 Room Air 21 08/28/17 19:30 98 Room Air 21 08/28/17 19:02 72 Intake and Output 08/28/17 08/29/17 19:00 07:00 Intake Total 620 ml 240 ml Balance 620 ml 240 ml Intake Oral 620 ml 240 ml # Voids 3 2 # Bowel Movements 1 Laboratory Tests 08/29/17 06:20: Prothrombin Time 22.0H, Prothromb Time International Ratio 2.1H Height (Feet): 6 Height (Inches): 1.00 Weight (Pounds): 199 Cardiovascular: normal rate Respiratory/Chest: decreased breath sounds Abdomen: distended MARIA M YU Aug 29, 2017 17:22
[2017-08-29 20:00] VITALS: BP 129/71
[2017-08-30] VITALS: BP 118/71
[2017-08-30 04:00] VITALS: BP 124/64
[2017-08-30] MEDS: HydrALAZINE 25mg tab ORAL SCH ×2 (05:45→13:55)
[2017-08-30] MEDS: Metoprolol Tartrate 50mg tab ORAL SCH ×2 (05:45→13:55)
[2017-08-30 05:52] LABS: BASOPHILS % (AUTO) 0.8 % (0.0-2.0); EOSINOPHILS % (AUTO) 4.1 % (0.0-3.0); HEMATOCRIT 34.8 % (42.0-52.0); HEMOGLOBIN 11.6 G/DL (14.2-18.0); LYMPHOCYTES % (AUTO) 41.2 % (20.0-45.0); MEAN CORPUSCULAR VOLUME 89 FL (80-99); MONOCYTES % (AUTO) 12.1 % (1.0-10.0); NEUTROPHILS % (AUTO) 41.9 % (45.0-75.0); PLATELET COUNT 127 K/UL (150-450); RED BLOOD COUNT 3.93 M/UL (4.70-6.10); RED CELL DISTRIBUTION WIDTH 13.6 % (11.6-14.8); WHITE BLOOD COUNT 5.5 K/UL (4.8-10.8)
[2017-08-30] MEDS: Albuterol/Ipratropium 3ml neb HHN PRN ×2 (05:52→14:45)
[2017-08-30 06:24] LABS: ALANINE AMINOTRANSFERASE 19 U/L (12-78); ALBUMIN 2.9 G/DL (3.4-5.0); ALBUMIN/GLOBULIN RATIO 0.6 (1.0-2.7); ALKALINE PHOSPHATASE 58 U/L (46-116); ANION GAP 11 mmol/L (5-15); ASPARTATE AMINO TRANSFERASE 20 U/L (15-37); BILIRUBIN,TOTAL 0.4 MG/DL (0.2-1.0); BLOOD UREA NITROGEN 59 mg/dL (7-18); CALCIUM 8.6 MG/DL (8.5-10.1); CARBON DIOXIDE 23 MMOL/L (21-32); CHLORIDE 107 MMOL/L (98-107); CREATININE 2.8 MG/DL (0.55-1.30); POTASSIUM 4.2 MMOL/L (3.5-5.1); SODIUM 141 MMOL/L (136-145)
[2017-08-30 08:00] VITALS: BP 109/77
[2017-08-30 08:09] LABS: INR 2.1 (0.9-1.1)
[2017-08-30] MEDS: Tamsulosin 0.4mg cap ORAL SCH (08:35)
[2017-08-30] MEDS: Docusate 100mg cap ORAL SCH ×3 (08:35→17:52)
[2017-08-30] MEDS: Depakote ER 250mg tab ORAL SCH (08:35)
[2017-08-30] MEDS: guaiFENesin 100mg/5ml Liq ud ORAL PRN ×2 (08:36→17:52)
[2017-08-30] MEDS: dilTIAZem HCl CD 240mg cap ORAL SCH (08:36)
[2017-08-30] MEDS: Budesonide HHN 0.25mg/2ml ud HHN SCH (08:55)
--- NOTE | 2017-08-30 10:47 | General Progress Note ---
Assessment/Plan Assessment/Plan S: I am ok O: appears comfortable. No wheezing, no chest pain, at the bed side. PHYSICAL EXAMINATION: HEAD AND NECK: Atraumatic and normocephalic. CHEST: Bronchial BS, diffuse wheezing HEART: S1 and S2. IRegular rate and rhythm. ABDOMEN: Soft. No organomegaly. MUSCULOSKELETAL: Positive for right hemiplegia at baseline. NEUROLOGY: The patient is awake. right side weakness, alert and oriented x2 at baseline. Meds: reviewed and reconciled in the chart, including Levaquin 500 mg daily ASSESSMENT AND PLAN: 1. Acute Asthma/copd exacerbation vs CHF exacerbation 2. seizures- h/o of . stable 2. Dementia. 3. Cerebrovascular accident with right hemiplegia. 4. Atrial fibrillation with controlled rate. 5. Congestive heart failure - diastolic with the preserved ejection fraction. 6. Hypothyroidism. 7. Hypertension. 8. Acute on chronic renal failure, 9. Benign prostatic hypertrophy. 10. Gastrointestinal and deep vein thrombosis prophylaxes. PLAN OF CARE: will check INR started Pulmicort. Ok to followup as out patient Subjective Allergies: Coded Allergies: MARYANA INHIBITORS (Unverified Allergy, Unknown, 01/31/14) ARB-ANGIOTENSIN RECEPTOR ANTAGONIST (Unverified Allergy, Unknown, 01/31/14) Objective Last 24 Hour Vital Signs Date Time Temp Pulse Resp B/P (MAP) Pulse Ox O2 Delivery O2 Flow Rate FiO2 08/30/17 09:05 88 20 96 Room Air 21 08/30/17 08:54 81 18 95 Room Air 21 08/30/17 08:54 95 Room Air 21 08/30/17 08:54 Room Air 21 08/30/17 08:36 80 109/77 08/30/17 08:00 97.2 62 20 109/77 92 Room Air 2.0 21 97.2 08/30/17 05:53 82 20 92 Room Air 21 08/30/17 05:45 72 115/61 08/30/17 05:45 115/61 08/30/17 05:45 115/61 08/30/17 04:00 97.5 73 17 124/64 96 Nasal Cannula 2.0 97.5 08/30/17 03:34 66 08/30/17 00:00 98.1 79 18 118/71 100 Nasal Cannula 2.0 98.1 08/29/17 23:34 65 08/29/17 21:32 126/76 08/29/17 21:32 126/76 08/29/17 21:31 76 126/76 08/29/17 21:28 75 20 96 Nasal Cannula 2.0 08/29/17 21:15 73 18 94 Nasal Cannula 2.0 08/29/17 20:00 97.9 78 18 129/71 95 97.9 08/29/17 19:54 79 08/29/17 19:42 96 Room Air 08/29/17 19:42 75 18 08/29/17 19:42 Room Air 08/29/17 16:34 74 18 99 Room Air 08/29/17 16:28 73 18 96 Room Air 08/29/17 16:00 72 08/29/17 16:00 98.4 80 22 119/79 95 98.4 08/29/17 13:41 84 137/65 08/29/17 13:40 137/65 08/29/17 13:40 137/65 08/29/17 12:00 98.1 84 20 137/65 96 98.1 08/29/17 12:00 80 Intake and Output 08/29/17 08/30/17 19:00 07:00 Intake Total 400 ml Output Total 600 ml 400 ml Balance -200 ml -400 ml Intake Oral 400 ml Output Urine Total 600 ml 400 ml # Bowel Movements 1 2 Laboratory Tests 08/30/17 05:20: White Blood Count 5.5, Red Blood Count 3.93L, Hemoglobin 11.6L, Hematocrit 34.8L , Mean Corpuscular Volume 89, Mean Corpuscular Hemoglobin 29.4, Mean Corpuscular Hemoglobin Concent 33.2, Red Cell Distribution Width 13.6, Platelet Count 127L, Mean Platelet Volume 6.9, Neutrophils (%) (Auto) 41.9L, Lymphocytes (%) (Auto) 41.2, Monocytes (%) (Auto) 12.1H, Eosinophils (%) (Auto) 4.1H, Basophils (%) (Auto) 0.8, Sodium Level 141, Potassium Level 4.2, Chloride Level 107, Carbon Dioxide Level 23, Anion Gap 11, Blood Urea Nitrogen 59H, Creatinine 2.8H, Estimat Glomerular Filtration Rate , Glucose Level 99, Uric Acid 10.2H, Calcium Level 8.6, Phosphorus Level 4.0, Magnesium Level 2.1, Total Bilirubin 0.4, Aspartate Amino Transf (AST/SGOT) 20, Alanine Aminotransferase (ALT/SGPT) 19, Alkaline Phosphatase 58, Pro-B-Type Natriuretic Peptide 1811H, Total Protein 8.0, Albumin 2.9L, Globulin 5.1, Albumin/Globulin Ratio 0.6L 08/30/17 07:45: Prothrombin Time 21.8H, Prothromb Time International Ratio 2.1H Height (Feet): 6 Height (Inches): 1.00 Weight (Pounds): 198 Ondina Geiger MD Aug 30, 2017 10:47
[2017-08-30 12:00] VITALS: BP 147/87
--- NOTE | 2017-08-30 12:40 | Pulmonology Progress Note ---
Assessment/Plan Problems: (1) At high risk for aspiration (2) CHF exacerbation (3) Acute on chronic renal insufficiency (4) Vascular dementia with behavior disturbance (5) Hemiplegia affecting right dominant side (6) Afib (7) Cardiomyopathy Assessment/Plan videow swallow study reviewed on levofloxacin heart rate controlled, afib/ flutter diuresing well. respiratory treatment check sputum swallow study titrate cardiac meds. check INR. d/w at the bed site Subjective ROS Limited/Unobtainable: No Constitutional: Reports: no symptoms HEENT: Repors: no symptoms Respiratory: Reports: no symptoms Allergies: Coded Allergies: MARYANA INHIBITORS (Unverified Allergy, Unknown, 01/31/14) ARB-ANGIOTENSIN RECEPTOR ANTAGONIST (Unverified Allergy, Unknown, 01/31/14) Objective Last 24 Hour Vital Signs Date Time Temp Pulse Resp B/P (MAP) Pulse Ox O2 Delivery O2 Flow Rate FiO2 08/30/17 09:05 88 20 96 Room Air 21 08/30/17 08:54 81 18 95 Room Air 21 08/30/17 08:54 95 Room Air 21 08/30/17 08:54 Room Air 21 08/30/17 08:36 80 109/77 08/30/17 08:00 97.2 62 20 109/77 92 Room Air 2.0 21 97.2 08/30/17 05:53 82 20 92 Room Air 21 08/30/17 05:45 72 115/61 08/30/17 05:45 115/61 08/30/17 05:45 115/61 08/30/17 04:00 97.5 73 17 124/64 96 Nasal Cannula 2.0 97.5 08/30/17 03:34 66 08/30/17 00:00 98.1 79 18 118/71 100 Nasal Cannula 2.0 98.1 08/29/17 23:34 65 08/29/17 21:32 126/76 08/29/17 21:32 126/76 08/29/17 21:31 76 126/76 08/29/17 21:28 75 20 96 Nasal Cannula 2.0 28 08/29/17 21:15 73 18 94 Nasal Cannula 2.0 28 08/29/17 20:00 97.9 78 18 129/71 95 97.9 08/29/17 19:54 79 08/29/17 19:42 96 Room Air 21 08/29/17 19:42 75 18 08/29/17 19:42 Room Air 21 08/29/17 16:34 74 18 99 Room Air 21 08/29/17 16:28 73 18 96 Room Air 21 08/29/17 16:00 72 08/29/17 16:00 98.4 80 22 119/79 95 98.4 08/29/17 13:41 84 137/65 08/29/17 13:40 137/65 08/29/17 13:40 137/65 Intake and Output 08/29/17 08/30/17 19:00 07:00 Intake Total 400 ml Output Total 600 ml 400 ml Balance -200 ml -400 ml Intake Oral 400 ml Output Urine Total 600 ml 400 ml # Bowel Movements 1 2 General Appearance: WD/WN HEENT: normocephalic, atraumatic Respiratory/Chest: chest wall non-tender, lungs clear Cardiovascular: normal peripheral pulses, normal rate Abdomen: normal bowel sounds Genitourinary: normal external genitalia Extremities: no cyanosis Microbiology Date/Time Source Procedure Growth Status 08/28/17 16:00 Sputum Gram Stain - Final Complete 08/28/17 16:00 Sputum Sputum Culture - Final NORMAL UPPER RESPIRATORY SHARYN PRESENT Complete Laboratory Tests 08/30/17 05:20: White Blood Count 5.5, Red Blood Count 3.93L, Hemoglobin 11.6L, Hematocrit 34.8L , Mean Corpuscular Volume 89, Mean Corpuscular Hemoglobin 29.4, Mean Corpuscular Hemoglobin Concent 33.2, Red Cell Distribution Width 13.6, Platelet Count 127L, Mean Platelet Volume 6.9, Neutrophils (%) (Auto) 41.9L, Lymphocytes (%) (Auto) 41.2, Monocytes (%) (Auto) 12.1H, Eosinophils (%) (Auto) 4.1H, Basophils (%) (Auto) 0.8, Sodium Level 141, Potassium Level 4.2, Chloride Level 107, Carbon Dioxide Level 23, Anion Gap 11, Blood Urea Nitrogen 59H, Creatinine 2.8H, Estimat Glomerular Filtration Rate , Glucose Level 99, Uric Acid 10.2H, Calcium Level 8.6, Phosphorus Level 4.0, Magnesium Level 2.1, Total Bilirubin 0.4, Aspartate Amino Transf (AST/SGOT) 20, Alanine Aminotransferase (ALT/SGPT) 19, Alkaline Phosphatase 58, Pro-B-Type Natriuretic Peptide 1811H, Total Protein 8.0, Albumin 2.9L, Globulin 5.1, Albumin/Globulin Ratio 0.6L 08/30/17 07:45: Prothrombin Time 21.8H, Prothromb Time International Ratio 2.1H Current Medications Medications (Trade) Dose Ordered Sig/Con Route PRN Reason Start Time Stop Time Status Last Admin Dose Admin Acetaminophen (Tylenol) 325 mg Q4H PRN ORAL Mild Pain (Pain Scale 1-3) 08/26/17 22:15 09/25/17 22:14 Albuterol/ Ipratropium (Albuterol/ Ipratropium) 3 ml Q4HRT PRN HHN Shortness of Breath 08/26/17 21:45 08/31/17 21:44 08/30/17 05:52 Artificial Tears (Akwa-Tears) 1 drop Q6HR PRN BOTH EYES dry eyes 08/26/17 22:00 09/25/17 21:59 Budesonide (Pulmicort) 0.25 mg EVERY 12 HOURS HHN 08/29/17 13:00 09/28/17 12:59 08/30/17 08:55 Diltiazem HCl (Cardizem CD) 240 mg DAILY ORAL 08/27/17 09:00 09/26/17 08:59 08/30/17 08:36 Divalproex Sodium (Depakote ER) 250 mg EVERY 12 HOURS ORAL 08/27/17 09:00 09/26/17 08:59 08/30/17 08:35 Docusate Sodium (Colace) 100 mg THREE TIMES A DAY ORAL 08/28/17 18:00 09/27/17 17:59 08/30/17 08:35 Guaifenesin (Robitussin) 200 mg Q6HR PRN ORAL For Cough 08/26/17 22:15 09/25/17 22:14 08/30/17 08:36 Hydralazine HCl (Apresoline) 25 mg Q8HR ORAL 08/27/17 06:00 09/26/17 05:59 08/30/17 05:45 Isosorbide Dinitrate (Isordil) 10 mg Q8HR ORAL 08/27/17 06:00 09/26/17 05:59 08/30/17 05:45 Levetiracetam (Keppra) 1,500 mg Q12HR ORAL 08/27/17 09:00 09/26/17 08:59 08/30/17 08:35 Levofloxacin (Levaquin) 250 mg DAILY ORAL 08/28/17 09:00 09/04/17 08:59 08/30/17 08:35 Levothyroxine Sodium (Synthroid) 75 mcg DAILY@0630 ORAL 08/27/17 06:30 09/26/17 06:29 08/30/17 05:44 Metoprolol Tartrate (Lopressor) 50 mg Q8HR ORAL 08/27/17 06:00 09/26/17 05:59 08/30/17 05:45 Tamsulosin HCl (Flomax) 0.4 mg Q12HR ORAL 08/27/17 13:30 09/26/17 13:29 08/30/17 08:35 Warfarin Sodium (Coumadin per pharmacy) 1 ea DAILY PRN MISC Per rx protocol 08/26/17 22:45 09/25/17 22:44 Warfarin Sodium (Coumadin) 2.5 mg COUMADIN ONCE ORAL 08/30/17 17:00 08/30/17 17:01 Warner Trujillo MD Aug 30, 2017 12:40
[2017-08-30 14:31] VITALS: BP 147/85
--- NOTE | 2017-08-30 14:35 | Nephrology Progress Note ---
Assessment/Plan Problem List: (1) Acute renal failure (2) Seizure disorder (3) CVA (cerebral infarction) Assessment Renal failure due to pre renal azotemia due to underlying CHF- Cr 2.8 stable past 2 days ? underlying CKD others: Acute Asthma/copd exacerbation vs CHF exacerbation Breakthrough seizures/status epilepticus, Cerebrovascular accident with right hemiplegia. Congestive heart failure - diastolic with the preserved ejection fraction. Benign prostatic hypertrophy. h/o Pneumonia- SVT , At fib- on anti coag h/o DVT- h/o HypoThyroidism h/o Gout Dementia HTN Plan Optimize cardiac and pulmonary status monitor renal parameters- avoid nephrotoxics- flomax adjust bp meds hold lasix kidneyUTZ noted DC planning Subjective ROS Limited/Unobtainable: No Constitutional: Reports: malaise Objective Objective Last 24 Hour Vital Signs Date Time Temp Pulse Resp B/P (MAP) Pulse Ox O2 Delivery O2 Flow Rate FiO2 08/30/17 14:31 97.5 66 20 147/85 96 Room Air 2.0 21 97.5 08/30/17 13:55 66 147/87 08/30/17 13:55 147/87 08/30/17 13:55 147/87 08/30/17 12:00 71 08/30/17 09:05 88 20 96 Room Air 21 08/30/17 08:54 81 18 95 Room Air 21 08/30/17 08:54 95 Room Air 21 08/30/17 08:54 Room Air 21 08/30/17 08:36 80 109/77 08/30/17 08:00 62 08/30/17 08:00 97.2 62 20 109/77 92 Room Air 2.0 21 97.2 08/30/17 05:53 82 20 92 Room Air 21 08/30/17 05:45 72 115/61 08/30/17 05:45 115/61 08/30/17 05:45 115/61 08/30/17 04:00 97.5 73 17 124/64 96 Nasal Cannula 2.0 97.5 08/30/17 03:34 66 08/30/17 00:00 98.1 79 18 118/71 100 Nasal Cannula 2.0 98.1 08/29/17 23:34 65 08/29/17 21:32 126/76 08/29/17 21:32 126/76 08/29/17 21:31 76 126/76 08/29/17 21:28 75 20 96 Nasal Cannula 2.0 28 08/29/17 21:15 73 18 94 Nasal Cannula 2.0 08/29/17 20:00 97.9 78 18 129/71 95 97.9 08/29/17 19:54 79 08/29/17 19:42 96 Room Air 21 08/29/17 19:42 75 18 08/29/17 19:42 Room Air 08/29/17 16:34 74 18 99 Room Air 21 08/29/17 16:28 73 18 96 Room Air 08/29/17 16:00 72 08/29/17 16:00 98.4 80 22 119/79 95 98.4 Intake and Output 08/29/17 08/30/17 19:00 07:00 Intake Total 400 ml Output Total 600 ml 400 ml Balance -200 ml -400 ml Intake Oral 400 ml Output Urine Total 600 ml 400 ml # Bowel Movements 1 2 Laboratory Tests 08/30/17 05:20: White Blood Count 5.5, Red Blood Count 3.93L, Hemoglobin 11.6L, Hematocrit 34.8L , Mean Corpuscular Volume 89, Mean Corpuscular Hemoglobin 29.4, Mean Corpuscular Hemoglobin Concent 33.2, Red Cell Distribution Width 13.6, Platelet Count 127L, Mean Platelet Volume 6.9, Neutrophils (%) (Auto) 41.9L, Lymphocytes (%) (Auto) 41.2, Monocytes (%) (Auto) 12.1H, Eosinophils (%) (Auto) 4.1H, Basophils (%) (Auto) 0.8, Sodium Level 141, Potassium Level 4.2, Chloride Level 107, Carbon Dioxide Level 23, Anion Gap 11, Blood Urea Nitrogen 59H, Creatinine 2.8H, Estimat Glomerular Filtration Rate , Glucose Level 99, Uric Acid 10.2H, Calcium Level 8.6, Phosphorus Level 4.0, Magnesium Level 2.1, Total Bilirubin 0.4, Aspartate Amino Transf (AST/SGOT) 20, Alanine Aminotransferase (ALT/SGPT) 19, Alkaline Phosphatase 58, Pro-B-Type Natriuretic Peptide 1811H, Total Protein 8.0, Albumin 2.9L, Globulin 5.1, Albumin/Globulin Ratio 0.6L 6/5/18 07:45: Prothrombin Time 21.8H, Prothromb Time International Ratio 2.1H Height (Feet): 6 Height (Inches): 1.00 Weight (Pounds): 198 Cardiovascular: normal rate Respiratory/Chest: decreased breath sounds Abdomen: distended MARIA M YU Aug 30, 2017 14:35
--- NOTE | 2017-08-30 15:05 | General Progress Note ---
Assessment/Plan Assessment/Plan schizoaffective d/o cognitive impairment should make decisions the pt failed swallow study -depakote er 250mg bid -provided ro/st Subjective Date patient seen: Aug 30, 2017 Neurologic/Psychiatric: Reports: anxiety, depressed Allergies: Coded Allergies: MARYANA INHIBITORS (Unverified Allergy, Unknown, 01/31/14) ARB-ANGIOTENSIN RECEPTOR ANTAGONIST (Unverified Allergy, Unknown, 01/31/14) Subjective the pt is refusing gt the was in room. the pt is somewhat confused however is clear about refusing gt Objective Last 24 Hour Vital Signs Date Time Temp Pulse Resp B/P (MAP) Pulse Ox O2 Delivery O2 Flow Rate FiO2 08/30/17 14:51 74 20 99 Room Air 21 08/30/17 14:45 72 20 98 Room Air 21 08/30/17 14:31 97.5 66 20 147/85 96 Room Air 2.0 21 97.5 08/30/17 13:55 66 147/87 08/30/17 13:55 147/87 08/30/17 13:55 147/87 08/30/17 12:00 71 08/30/17 12:00 97.2 66 20 147/87 96 Room Air 2.0 21 97.2 08/30/17 09:05 88 20 96 Room Air 21 08/30/17 08:54 81 18 95 Room Air 21 08/30/17 08:54 95 Room Air 21 08/30/17 08:54 Room Air 21 08/30/17 08:36 80 109/77 08/30/17 08:00 62 08/30/17 08:00 97.2 62 20 109/77 92 Room Air 2.0 21 97.2 08/30/17 05:53 82 20 92 Room Air 21 08/30/17 05:45 72 115/61 08/30/17 05:45 115/61 08/30/17 05:45 115/61 08/30/17 04:00 97.5 73 17 124/64 96 Nasal Cannula 2.0 97.5 08/30/17 03:34 66 08/30/17 00:00 98.1 79 18 118/71 100 Nasal Cannula 2.0 98.1 08/29/17 23:34 65 08/29/17 21:32 126/76 08/29/17 21:32 126/76 08/29/17 21:31 76 126/76 08/29/17 21:28 75 20 96 Nasal Cannula 2.0 08/29/17 21:15 73 18 94 Nasal Cannula 2.0 08/29/17 20:00 97.9 78 18 129/71 95 97.9 08/29/17 19:54 79 08/29/17 19:42 96 Room Air 08/29/17 19:42 75 18 08/29/17 19:42 Room Air 08/29/17 16:34 74 18 99 Room Air 21 08/29/17 16:28 73 18 96 Room Air 08/29/17 16:00 72 08/29/17 16:00 98.4 80 22 119/79 95 98.4 Intake and Output 08/29/17 08/30/17 19:00 07:00 Intake Total 400 ml Output Total 600 ml 400 ml Balance -200 ml -400 ml Intake Oral 400 ml Output Urine Total 600 ml 400 ml # Bowel Movements 1 2 Laboratory Tests 08/30/17 05:20: White Blood Count 5.5, Red Blood Count 3.93L, Hemoglobin 11.6L, Hematocrit 34.8L , Mean Corpuscular Volume 89, Mean Corpuscular Hemoglobin 29.4, Mean Corpuscular Hemoglobin Concent 33.2, Red Cell Distribution Width 13.6, Platelet Count 127L, Mean Platelet Volume 6.9, Neutrophils (%) (Auto) 41.9L, Lymphocytes (%) (Auto) 41.2, Monocytes (%) (Auto) 12.1H, Eosinophils (%) (Auto) 4.1H, Basophils (%) (Auto) 0.8, Sodium Level 141, Potassium Level 4.2, Chloride Level 107, Carbon Dioxide Level 23, Anion Gap 11, Blood Urea Nitrogen 59H, Creatinine 2.8H, Estimat Glomerular Filtration Rate , Glucose Level 99, Uric Acid 10.2H, Calcium Level 8.6, Phosphorus Level 4.0, Magnesium Level 2.1, Total Bilirubin 0.4, Aspartate Amino Transf (AST/SGOT) 20, Alanine Aminotransferase (ALT/SGPT) 19, Alkaline Phosphatase 58, Pro-B-Type Natriuretic Peptide 1811H, Total Protein 8.0, Albumin 2.9L, Globulin 5.1, Albumin/Globulin Ratio 0.6L 08/30/17 07:45: Prothrombin Time 21.8H, Prothromb Time International Ratio 2.1H Height (Feet): 6 Height (Inches): 1.00 Weight (Pounds): 198 General Appearance: no apparent distress, alert, confused Rufus Velasquez M.D. Aug 30, 2017 15:05
[2017-08-30 16:00] VITALS: BP 108/67
[2017-08-30] MEDS ORDERED: Warfarin Sodium 2.5mg ORAL ONE (17:00)
--- NOTE | 2017-08-31 13:41 | Discharge Summary ---
Discharge Summary Discharge Summary _ DATE OF ADMISSION: 08/26/2017 DATE OF DISCHARGE: 08/30/2017 REASON FOR ADMISSION: 82 years old male with past medical history significant for CHF, hypertension, COPD, seizure disorder , dementia, presented from the halfway facility for evaluation due to cough and congestion for one day . No fever or chills. No chest pain. Laboratory workup revealed no leukocytosis. BUN 44, creatinine 2.5. Lactic acid 1.4. ProBNP 2804. EKG revealed atrial fibrillation with T wave inversion in lateral leads. Chest x-ray revealed mild interstitial edema. Patient admitted with diagnosis of CHF exacerbation, acute renal failure, possible COPD exacerbation . CONSULTANTS: tube station attendant Dr. Crespo pulmonary Dr. Trujillo manager center Dr. Noe psychiatrist [facility]SE: Patient admitted. Store Shopper and tube station attendant closely followed. Echocardiogram revealed normal left ventricular chamber size, systolic function and wall motion. Left ventricular ejection fraction estimated to be 60-65%. No evidence of left ventricular hypertrophy. Mitral inflow velocity indicative of possible pseudonormalization pattern, implying significant left ventricular diastolic dysfunction. Patient started on intravenous diuresis. Cardiorenal parameters and volumes were closely monitored. Lasix dose was optimized further. Sputum culture was negative. Blood culture were negative. Patient was on empiric antibiotics. Antitussive provided as needed. Follow-up chest x-ray revealed no significant changes. Supplemental oxygen titrated as needed to keep pulse oximetry above 90%. Pulmonary toilet provided with bronchodilator and inhaled steroids. ProBNP from initial 2804 down to 1811. Patient had bedside swallow evaluation which revealed persistent moderate or more severe oropharyngeal dysphagia. Speech therapist recommended oral diet for [id number] and changed to mechanical soft ground with nectar thick liquids. Strict aspiration/reflux precautions were maintained with one-to-one supervision. Aspiration precautions were discussed with patient 's . Recommended video swallow evaluation which could be done as an outpatient to rule out silent aspiration. Prior video swallow evaluation was completed in March 2016 and revealed trace aspiration of thin liquids only. [employer] Instructor closely followed. Patient was on anticoagulation to keep INR in therapeutic rate. Heart rate was controlled with Cardizem. Per tube station attendant patient likely had permanent atrial fibrillation. Patient was continued on hydralazine and isosorbide for anti-failure regimen. Dose of Lasix was decreased. According to tube station attendant, patient had element of congestive heart failure due to hypertensive heart disease as well as the probable COPD exacerbation. Delivery Nurse closely followed. Renal parameter and s electrolytes were closely monitored ,electrolytes replaced as needed. Nephrotoxins were further avoided. Blood pressure medications were optimized. At some point creatinine raised to 2.8. Lasix was stopped at this time. May be resumed later if renal function stabilized, Renal ultrasound revealed bilateral renal cysts, largest in the left kidney. 5 mm nonobstructing left renal parenchymal calcification. No hydroureteronephrosis Flomax was continued. According to manager center renal failure was due to prerenal azotemia due to underlying congestive heart failure along with possible underlying chronic kidney disease. Seizure precautions were maintained. Keppra and Depakote were continued. No evidence of seizure activity while in the hospital . Bowel regimen instituted. Supportive care provided . DVT prophylaxis provided. Pain management addressed. patient was discharged to halfway facility. Psychiatrist seen and evaluated patient and diagnosed him with schizoaffective disorder and cognitive impairment. Psychiatrist stated that patient lacks capacity to make decisions. should be making all decisions for patient. Patient started on Depakote. Reality orientation and supportive therapy provided. Patient was stable for discharge back to halfway facility for continuation of care FINAL DIAGNOSES: Acute COPD exacerbation versus CHF exacerbation Diastolic congestive heart failure with preserved ejection fraction Acute renal failure due to prerenal azotemia secondary to underlying CHF Probable underlying chronic kidney disease Permanent atrial fibrillation History of CVA with right hemiparesis High aspiration risk Seizure disorder BPH Schizoaffective disorder Cognitive impairment DISCHARGE MEDICATIONS: See Medication Reconciliation list. DISCHARGE INSTRUCTIONS: Patient was discharged to halfway facility for continuation of care. I have been assigned to dictate discharge summary for this account. I was not involved in the patient's management. Trish Hardy NP Aug 31, 2017 13:41
== END 2017-08-30 19:03 | DRG 291 ==
LOC: EDBD 14:54 → EMR 16:38 → 2E 17:40 → EDBEDREQ 18:41 → 2E 21:38
DX: I13.0 Hypertensive heart and chronic kidney disease with heart failure and stage 1 through stage 4 chronic kidney disease, or unspecified chronic kidney disease (principal); I50.33 Acute on chronic diastolic (congestive) heart failure; N17.9 Acute kidney failure, unspecified; F01.51 Vascular dementia, unspecified severity, with behavioral disturbance; I69.351 Hemiplegia and hemiparesis following cerebral infarction affecting right dominant side; N18.4 Chronic kidney disease, stage 4 (severe); J44.1 Chronic obstructive pulmonary disease with (acute) exacerbation; I42.9 Cardiomyopathy, unspecified; G40.901 Epilepsy, unspecified, not intractable, with status epilepticus; E03.9 Hypothyroidism, unspecified; N40.0 Benign prostatic hyperplasia without lower urinary tract symptoms; M10.9 Gout, unspecified; I48.2 Chronic atrial fibrillation; F25.9 Schizoaffective disorder, unspecified
CPT/HCPCS: 36415; 71045; 74230; 76770; 80053; 80061; 80162; 80299; 81003; 82607; 82746; 82977; 83036; 83605; 83735; 83880; 84100; 84443; 84484; 84550; 85025; 85610; 86140; 87040; 87070; 87205; 93306; 94640; 94664; 94760; 99285; J7620

== ENCOUNTER 2017-12-03 19:43 | Inpatient (IN) | payer MEDICARE, MEDICAID ==
[~2017-12-03] VITALS: Ht 182.9 cm; Wt 98.9 kg
[~2017-12-03 19:43] MED LIST changes: +DEPAKOTE ER250 MG ORAL; +GUAIFENESI100 MG/5 M ORAL; +LORATADINE10 M2 PO; +POLYVINYL ALCOH15 ML OP
[2017-12-03 19:54] VITALS: BP 124/76
[2017-12-03 20:26] LABS: BASOPHILS % (AUTO) 1.2 % (0.0-2.0); EOSINOPHILS % (AUTO) 3.8 % (0.0-3.0); HEMATOCRIT 29.9 % (42.0-52.0); HEMOGLOBIN 9.9 G/DL (14.2-18.0); LYMPHOCYTES % (AUTO) 28.2 % (20.0-45.0); MEAN CORPUSCULAR VOLUME 89 FL (80-99); MONOCYTES % (AUTO) 13.5 % (1.0-10.0); NEUTROPHILS % (AUTO) 53.3 % (45.0-75.0); PLATELET COUNT 122 K/UL (150-450); RED BLOOD COUNT 3.34 M/UL (4.70-6.10); RED CELL DISTRIBUTION WIDTH 16.2 % (11.6-14.8); WHITE BLOOD COUNT 4.1 K/UL (4.8-10.8)
[2017-12-03 20:30] VITALS: BP 128/86
[2017-12-03 20:45] LABS: ANION GAP 8 mmol/L (5-15); BLOOD UREA NITROGEN 29 mg/dL (7-18); CALCIUM 8.7 MG/DL (8.5-10.1); CARBON DIOXIDE 22 MMOL/L (21-32); CHLORIDE 111 MMOL/L (98-107); CREATININE 2.1 MG/DL (0.55-1.30); POTASSIUM 4.7 MMOL/L (3.5-5.1); SODIUM 141 MMOL/L (136-145)
[2017-12-03 20:49] LABS: ALANINE AMINOTRANSFERASE 19 U/L (12-78); ALBUMIN 3.2 G/DL (3.4-5.0); ALBUMIN/GLOBULIN RATIO 0.7 (1.0-2.7); ALKALINE PHOSPHATASE 74 U/L (46-116); ASPARTATE AMINO TRANSFERASE 14 U/L (15-37); BILIRUBIN,TOTAL 0.5 MG/DL (0.2-1.0)
--- NOTE | 2017-12-03 21:17 | Diagnostic Imaging Report ---
EXAM: XR Chest, 1 View CLINICAL HISTORY: Shortness of breath TECHNIQUE: Frontal view of the chest. COMPARISON: 08/28/2017 FINDINGS: Lungs: Hypoventilatory lungs. Nonspecific bibasilar opacities may represent atelectasis. An infectious or inflammatory process is not excluded. Pleural space: Unremarkable. No pneumothorax. Heart: Stable cardiomediastinal silhouette. Mediastinum: See above. Bones/joints: No acute osseous abnormality. Tubes, lines and devices: Telemetry leads overlie the patient. IMPRESSION: Hypoventilatory lungs. Nonspecific bibasilar opacities may represent atelectasis. An infectious or inflammatory process is not excluded.
--- NOTE | 2017-12-03 21:52 | Emergency Room Report ---
History of Present Illness General Chief Complaint: Upper Respiratory Illness Present Illness HPI Mr. Ybarra is an 82 yo male with hx of CVA, cardiomyopathy, atrial fibrillation and a host of medical illnesses who presents from SNF with congestion, dyspnea. Patient denies pain but he did have productive cough. Reported increased oxygen required 3 L NC per EMS. Further hx obtained from PCP Dr. Geiger, SNF documentation and EMR. Nurse reported facial swelling right sided. patient has hx of right sided hemiplegia residual from CVA. 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 Hx COPD: Yes Hx Diabetes: No - hypothyroidism Hx Cancer: No Hx Gastrointestinal Problems: No Hx Dialysis: No - CKD Hx Neurological Problems: Yes - Encephalapathy,Neuralgia Hx Cerebrovascular Accident: Yes Hx Dementia: Yes Hx Seizures: Yes Hx Weakness: Yes Review of Systems Constitutional: Denies: fever, malaise Respiratory: Reports: shortness of breath Cardiovascular: Denies: chest pain Musculoskeletal: Denies: back pain All Other Systems: negative except mentioned in HPI Physical Exam Vital Signs Date Time Temp Pulse Resp B/P (MAP) Pulse Ox O2 Delivery O2 Flow Rate FiO2 12/03/17 19:38 97.7 100 20 117/73 97 Nasal Cannula 3.0 97.7 Sp02 EP Interpretation: reviewed, normal General Appearance: alert, GCS 15, non-toxic, mild distress, Chronically Ill Head: normocephalic, atraumatic Eyes: bilateral eye normal inspection ENT: hearing 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, normal pharynx, no angioedema, normal voice Neck: full range of motion, supple/symm/no masses Respiratory: decreased breath sounds, rales, speaking full sentences Cardiovascular #1: tachycardia, irregularly irregular, edema Gastrointestinal: normal bowel sounds, non tender, soft, non-distended, no guarding Neurologic: alert, oriented x3, responsive, other - edematous RUE extremity, 3 + pitting edema in lower extremity, right facial partial paralysis lower face Psychiatric: judgement/insight normal, memory normal, mood/affect normal, no suicidal/homicidal ideation Reflexes: 3+ bicep (R), 3+ bicep (L), 3+ tricep (R), 3+ tricep (L), 3+ knee (R) , 3+ knee (L) Skin: normal color, no rash, warm/dry, well hydrated Lymphatic: no adenopathy Medical Decision Making Diagnostic Impression: Primary Impression: Afib Additional Impressions: Cardiomyopathy Acute CHF ER Course Mr. Ybarra presents with cough, facial swelling and dyspnea. is bedside, she has noted worsening right facial swelling over one week, especially since he does not have in dentures. I do not appreciate facial swelling. I do appreciate partial facial lower paralysis which appears to correspond with hemiplegia reported. Dr. Geiger will admit for acute CHF Labs Test 12/03/17 20:07 White Blood Count 4.1 K/UL (4.8-10.8) Red Blood Count 3.34 M/UL (4.70-6.10) Hemoglobin 9.9 G/DL (14.2-18.0) Hematocrit 29.9 % (42.0-52.0) Mean Corpuscular Volume 89 FL (80-99) Mean Corpuscular Hemoglobin 29.6 PG (27.0-31.0) Mean Corpuscular Hemoglobin Concent 33.1 G/DL (32.0-36.0) Red Cell Distribution Width 16.2 % (11.6-14.8) Platelet Count 122 K/UL (150-450) Mean Platelet Volume 6.8 FL (6.5-10.1) Neutrophils (%) (Auto) 53.3 % (45.0-75.0) Lymphocytes (%) (Auto) 28.2 % (20.0-45.0) Monocytes (%) (Auto) 13.5 % (1.0-10.0) Eosinophils (%) (Auto) 3.8 % (0.0-3.0) Basophils (%) (Auto) 1.2 % (0.0-2.0) Sodium Level 141 MMOL/L (136-145) Potassium Level 4.7 MMOL/L (3.5-5.1) Chloride Level 111 MMOL/L (98-107) Carbon Dioxide Level 22 MMOL/L (21-32) Anion Gap 8 mmol/L (5-15) Blood Urea Nitrogen 29 mg/dL (7-18) Creatinine 2.1 MG/DL (0.55-1.30) Estimat Glomerular Filtration Rate mL/min (>60) Glucose Level 124 MG/DL (74-106) Calcium Level 8.7 MG/DL (8.5-10.1) Total Bilirubin 0.5 MG/DL (0.2-1.0) Aspartate Amino Transf (AST/SGOT) 14 U/L (15-37) Alanine Aminotransferase (ALT/SGPT) 19 U/L (12-78) Alkaline Phosphatase 74 U/L (46-116) Total Protein 7.9 G/DL (6.4-8.2) Albumin 3.2 G/DL (3.4-5.0) Globulin 4.7 g/dL Albumin/Globulin Ratio 0.7 (1.0-2.7) Lab Results Impression anemia noted EKG Diagnostic Results EKG Time: 20:30 Rate: tachycardiac Rhythm: other - atrial fibrillation ST Segments: no acute changes Other Impression nl axis no ST elevation nonspecific T wave pattern Chest X-Ray Diagnostic Results Chest X-Ray Diagnostic Results : Chest X-Ray Ordered: Yes # of Views/Limited/Complete: 1 View Indication: Shortness of Breath PA Xray: Interpretation reviewed, by supervising MD Impression: Other - persistent interstitial and alveolar process as compared to previous radiographs in August Electronically Signed by: This image has been electronically signed by Dr. Beryl Traore Last Vital Signs Date Time Temp Pulse Resp B/P (MAP) Pulse Ox O2 Delivery O2 Flow Rate FiO2 12/03/17 20:30 82 13 128/86 98 Room Air 12/03/17 19:54 97.7 3.0 97.7 Referrals: Ondina Geiger MD (PCP) Beryl Traore MD Dec 03, 2017 21:52
[2017-12-03] MEDS ORDERED: DOCUSATE SODIU100 M2 ORAL (22:18)
[2017-12-03] MEDS ORDERED: BUDESONIDE0.5 GM MC (22:18)
[2017-12-03] MEDS ORDERED: ARTIFICIAL TEA1 EAC3 OP (22:18)
[2017-12-03] MEDS ORDERED: Albuterol/Ipratropium 3ml neb HHN PRN (23:00)
[2017-12-03] MEDS ORDERED: Zolpidem 5mg tab ORAL PRN (23:00)
[2017-12-03 23:25] VITALS: BP 135/89
[2017-12-04 00:45] LABS: BASOPHILS % (AUTO) 0.9 % (0.0-2.0); EOSINOPHILS % (AUTO) 3.8 % (0.0-3.0); HEMATOCRIT 28.6 % (42.0-52.0); HEMOGLOBIN 9.1 G/DL (14.2-18.0); LYMPHOCYTES % (AUTO) 28.9 % (20.0-45.0); MEAN CORPUSCULAR VOLUME 89 FL (80-99); MONOCYTES % (AUTO) 14.4 % (1.0-10.0); PLATELET COUNT 114 K/UL (150-450); RED BLOOD COUNT 3.21 M/UL (4.70-6.10); RED CELL DISTRIBUTION WIDTH 15.8 % (11.6-14.8); WHITE BLOOD COUNT 4.4 K/UL (4.8-10.8)
[2017-12-04 00:55] LABS: INR 3.1 (0.9-1.1)
[2017-12-04 00:59] LABS: ALANINE AMINOTRANSFERASE 20 U/L (12-78); ALBUMIN/GLOBULIN RATIO 0.7 (1.0-2.7); ALKALINE PHOSPHATASE 65 U/L (46-116); ANION GAP 6 mmol/L (5-15); ASPARTATE AMINO TRANSFERASE 14 U/L (15-37); BILIRUBIN,TOTAL 0.5 MG/DL (0.2-1.0); BLOOD UREA NITROGEN 30 mg/dL (7-18); CALCIUM 8.6 MG/DL (8.5-10.1); CARBON DIOXIDE 24 MMOL/L (21-32); CHLORIDE 112 MMOL/L (98-107); CHOLESTEROL 136 MG/DL (< 200); CREATININE 2.1 MG/DL (0.55-1.30); HDL CHOLESTEROL 45 MG/DL (40-60); POTASSIUM 4.5 MMOL/L (3.5-5.1); SODIUM 142 MMOL/L (136-145); TRIGLYCERIDES 40 MG/DL (30-150)
[2017-12-04] MEDS ORDERED: guaiFENesin 100mg/5ml Liq ud PO PRN (01:30)
[2017-12-04] MEDS: HydrALAZINE 25mg tab ORAL SCH ×3 (06:18→21:32)
[2017-12-04] MEDS: Metoprolol Tartrate 50mg tab ORAL SCH ×3 (06:18→21:31)
[2017-12-04 08:00] VITALS: BP_SYST 114; BP_SYST 151; BP_DIAS 70; BP_DIAS 80
[2017-12-04 08:25] LABS: ANION GAP 10 mmol/L (5-15); BLOOD UREA NITROGEN 28 mg/dL (7-18); CARBON DIOXIDE 20 MMOL/L (21-32); CHLORIDE 112 MMOL/L (98-107); CREATININE 1.9 MG/DL (0.55-1.30); POTASSIUM 4.3 MMOL/L (3.5-5.1); SODIUM 142 MMOL/L (136-145)
[2017-12-04] MEDS ORDERED: Docusate 100mg cap ORAL SCH (09:00)
[2017-12-04] MEDS ORDERED: levETIRAcetam 500mg/5ml Liquid NG SCH (09:00)
[2017-12-04] MEDS: Depakote ER 250mg tab ORAL SCH ×2 (09:43→21:32)
[2017-12-04] MEDS: dilTIAZem HCl CD 240mg cap ORAL SCH (09:44)
[2017-12-04 12:00] VITALS: BP 133/77
[2017-12-04] MEDS: Budesonide HHN 0.25mg/2ml ud HHN SCH ×2 (12:05→21:00)
--- NOTE | 2017-12-04 13:18 | Infectious Diseases Prog Note ---
Assessment/Plan Problems: (1) HCAP (healthcare-associated pneumonia) Assessment & Plan: will start zosyn empirically and send sputum culture, monitor CXR (2) Acute on chronic renal insufficiency Assessment & Plan: avoid nephrotoxics, monitor renal function , renal consult (3) At high risk for aspiration Assessment & Plan: aspiration precaution, keep HOB > 30 Degree all the time (4) Acute CHF Assessment & Plan: with dyspnea continue diuresis , monitor daily weight , fluids restriction Subjective Allergies: Coded Allergies: MARYANA INHIBITORS (Unverified Allergy, Unknown, 01/31/14) ARB-ANGIOTENSIN RECEPTOR ANTAGONIST (Unverified Allergy, Unknown, 01/31/14) Objective Vital Signs Last 24 Hour Vital Signs Date Time Temp Pulse Resp B/P (MAP) Pulse Ox O2 Delivery O2 Flow Rate FiO2 12/04/17 12:00 97.7 102 18 133/77 (95) 96 97.7 12/04/17 09:44 95 114/70 12/04/17 09:00 Room Air 2.0 12/04/17 08:00 109 12/04/17 08:00 99.0 95 18 114/70 (85) 99 99.0 12/04/17 06:18 106 155/85 12/04/17 06:18 156/85 12/04/17 06:18 155/85 12/04/17 01:11 Room Air 12/03/17 23:25 100 24 135/89 99 Room Air 12/03/17 23:25 97.7 100 24 135/89 99 Room Air 97.7 12/03/17 20:30 82 13 128/86 98 Room Air 12/03/17 19:54 97.7 97 38 124/76 100 Nasal Cannula 3.0 97.7 12/03/17 19:54 97 38 Nasal Cannula 3.0 12/03/17 19:38 97.7 100 20 117/73 97 Nasal Cannula 3.0 97.7 Height (Feet): 6 Height (Inches): 0.00 Weight (Pounds): 220 Laboratory Tests Test 12/03/17 20:07 12/04/17 00:30 12/04/17 06:30 White Blood Count 4.1 K/UL (4.8-10.8) L 4.4 K/UL (4.8-10.8) L Red Blood Count 3.34 M/UL (4.70-6.10) L 3.21 M/UL (4.70-6.10) L Hemoglobin 9.9 G/DL (14.2-18.0) L 9.1 G/DL (14.2-18.0) L Hematocrit 29.9 % (42.0-52.0) L 28.6 % (42.0-52.0) L Mean Corpuscular Volume 89 FL (80-99) 89 FL (80-99) Mean Corpuscular Hemoglobin 29.6 PG (27.0-31.0) 28.5 PG (27.0-31.0) Mean Corpuscular Hemoglobin Concent 33.1 G/DL (32.0-36.0) 32.0 G/DL (32.0-36.0) Red Cell Distribution Width 16.2 % (11.6-14.8) H 15.8 % (11.6-14.8) H Platelet Count 122 K/UL (150-450) L 114 K/UL (150-450) L Mean Platelet Volume 6.8 FL (6.5-10.1) 6.8 FL (6.5-10.1) Neutrophils (%) (Auto) 53.3 % (45.0-75.0) 52.0 % (45.0-75.0) Lymphocytes (%) (Auto) 28.2 % (20.0-45.0) 28.9 % (20.0-45.0) Monocytes (%) (Auto) 13.5 % (1.0-10.0) H 14.4 % (1.0-10.0) H Eosinophils (%) (Auto) 3.8 % (0.0-3.0) H 3.8 % (0.0-3.0) H Basophils (%) (Auto) 1.2 % (0.0-2.0) 0.9 % (0.0-2.0) Sodium Level 141 MMOL/L (136-145) 142 MMOL/L (136-145) 142 MMOL/L (136-145) Potassium Level 4.7 MMOL/L (3.5-5.1) 4.5 MMOL/L (3.5-5.1) 4.3 MMOL/L (3.5-5.1) Chloride Level 111 MMOL/L (98-107) H 112 MMOL/L (98-107) H 112 MMOL/L (98-107) H Carbon Dioxide Level 22 MMOL/L (21-32) 24 MMOL/L (21-32) 20 MMOL/L (21-32) L Anion Gap 8 mmol/L (5-15) 6 mmol/L (5-15) 10 mmol/L (5-15) Blood Urea Nitrogen 29 mg/dL (7-18) H 30 mg/dL (7-18) H 28 mg/dL (7-18) H Creatinine 2.1 MG/DL (0.55-1.30) H 2.1 MG/DL (0.55-1.30) H 1.9 MG/DL (0.55-1.30) H Estimat Glomerular Filtration Rate mL/min (>60) mL/min (>60) mL/min (>60) Glucose Level 124 MG/DL (74-106) H 98 MG/DL (74-106) 85 MG/DL (74-106) Calcium Level 8.7 MG/DL (8.5-10.1) 8.6 MG/DL (8.5-10.1) 9.0 MG/DL (8.5-10.1) Total Bilirubin 0.5 MG/DL (0.2-1.0) 0.5 MG/DL (0.2-1.0) Aspartate Amino Transf (AST/SGOT) 14 U/L (15-37) L 14 U/L (15-37) L Alanine Aminotransferase (ALT/SGPT) 19 U/L (12-78) 20 U/L (12-78) Alkaline Phosphatase 74 U/L (46-116) 65 U/L (46-116) Total Protein 7.9 G/DL (6.4-8.2) 7.3 G/DL (6.4-8.2) Albumin 3.2 G/DL (3.4-5.0) L 3.0 G/DL (3.4-5.0) L Globulin 4.7 g/dL 4.3 g/dL Albumin/Globulin Ratio 0.7 (1.0-2.7) L 0.7 (1.0-2.7) L Prothrombin Time 30.9 SEC (9.30-11.50) H Prothromb Time International Ratio 3.1 (0.9-1.1) H Activated Partial Thromboplast Time 49 SEC (23-33) H Magnesium Level 1.8 MG/DL (1.8-2.4) Troponin I 0.008 ng/mL (0.000-0.056) Pro-B-Type Natriuretic Peptide 5736 pg/mL (0-125) H 4935 pg/mL (0-125) H Triglycerides Level 40 MG/DL (30-150) Cholesterol Level 136 MG/DL (< 200) LDL Cholesterol 88 mg/dL (<100) HDL Cholesterol 45 MG/DL (40-60) Cholesterol/HDL Ratio 3.0 (3.3-4.4) L Thyroid Stimulating Hormone (TSH) 6.386 uiU/mL (0.358-3.740) Digoxin Level < 0.2 NG/ML (0.5-2.0) L Hemoglobin A1c 6.4 % (4.3-6.0) H Current Medications Medications (Trade) Dose Ordered Sig/Con Route PRN Reason Start Time Stop Time Status Last Admin Dose Admin Acetaminophen (Tylenol) 650 mg Q4H PRN ORAL Mild Pain (Pain Scale 1-3) 12/03/17 23:00 01/02/18 22:59 Albuterol/ Ipratropium (Albuterol/ Ipratropium) 3 ml THREE TIMES A DAY PRN HHN Shortness of Breath 12/03/17 23:00 12/08/17 22:59 Budesonide (Pulmicort) 0.25 mg EVERY 12 HOURS HHN 12/04/17 09:00 01/03/18 08:59 Dextrose (Dextrose 50%) 25 ml STAT PRN IV Hypoglycemia 12/03/17 23:00 01/02/18 22:59 Dextrose (Dextrose 50%) 50 ml STAT PRN IV Hypoglycemia 12/03/17 23:00 01/02/18 22:59 Diltiazem HCl (Cardizem CD) 240 mg DAILY ORAL 12/04/17 09:00 01/03/18 08:59 12/04/17 09:44 Divalproex Sodium (Depakote ER) 250 mg EVERY 12 HOURS ORAL 12/04/17 09:00 01/03/18 08:59 12/04/17 09:43 Docusate Sodium (Colace) 100 mg EVERY 12 HOURS ORAL 12/04/17 09:00 01/03/18 08:59 12/04/17 09:43 Famotidine (Pepcid) 20 mg BID ORAL 12/04/17 09:00 01/03/18 08:59 12/04/17 09:44 Guaifenesin (Robitussin) 200 mg Q6H PRN PO cough & congestion 12/04/17 01:30 01/03/18 01:29 Hydralazine HCl (Apresoline) 25 mg Q8HR ORAL 12/04/17 06:00 01/03/18 05:59 12/04/17 06:18 Isosorbide Dinitrate (Isordil) 10 mg Q8HR ORAL 12/04/17 06:00 01/03/18 05:59 12/04/17 06:18 Levetiracetam (Keppra) 500 mg Q12HR ORAL 12/04/17 09:00 01/03/18 08:59 12/04/17 09:44 Levothyroxine Sodium (Synthroid) 75 mcg DAILY@0630 ORAL 12/04/17 06:30 01/03/18 06:29 12/04/17 06:22 Metoprolol Tartrate (Lopressor) 50 mg Q8HR ORAL 12/04/17 06:00 01/03/18 05:59 12/04/17 06:18 Tamsulosin HCl (Flomax) 0.4 mg BEDTIME ORAL 12/04/17 21:00 01/03/18 20:59 Warfarin Sodium (Coumadin per pharmacy) 1 ea DAILY PRN MISC Per rx protocol 12/03/17 23:00 01/02/18 22:59 Warfarin Sodium (Coumadin) 5 mg ONCE ORAL 12/04/17 17:00 12/04/17 23:59 Zolpidem Tartrate (Ambien) 5 mg DAILYPRN PRN ORAL Insomnia 12/03/17 23:00 12/10/17 22:59 Lyssa Strong M.D. Dec 04, 2017 13:18
--- NOTE | 2017-12-04 13:30 | Consultation ---
Consult Note Consult Note asked to eval for renal failure- Known to me from his previous admission Mr. Ybarra is an 82 yo male with hx of CVA, cardiomyopathy, atrial fibrillation and a host of medical illnesses who presents from SNF with congestion, dyspnea. Patient denies pain but he did have productive cough. Reported increased oxygen required 3 L NC per EMS. Further hx obtained from PCP Dr. Geiger, SNF documentation and EMR. Nurse reported facial swelling right sided. patient has hx of right sided hemiplegia residual from CVA. Allergies: Coded Allergies: MARYANA INHIBITORS (Unverified Allergy, Unknown, 01/31/14) ARB-ANGIOTENSIN RECEPTOR ANTAGONIST (Unverified Allergy, Unknown, 01/31/14) Past Medical History: HTN, COPD, CVA/TIA, dementia, seizures, other - encephalopathy Hx Cardiac Problems: Yes Hx Hypertension: Yes Hx COPD: Yes hypothyroidism CKD Hx Neurological Problems: Yes - Encephalapathy,Neuralgia Hx Cerebrovascular Accident: Yes Hx Dementia: Yes Hx Seizures: Yes Hx Weakness: Yes examined- present data reviewed . . Assessment/Plan Renal failure due to pre renal azotemia due to underlying CHF- Cr 2.1 ? underlying CKD Afib Cardiomyopathy Acute CHF others: Acute Asthma/copd exacerbation seizures DM Cerebrovascular accident with right hemiplegia. Congestive heart failure - diastolic with the preserved ejection fraction. Benign prostatic hypertrophy. h/o Pneumonia- SVT , At fib- on anti coag h/o DVT- h/o HypoThyroidism h/o Gout Dementia HTN Plan: Optimize cardiac and pulmonary status monitor renal parameters- avoid nephrotoxics- flomax adjust bp meds check labs Isaias Noe MD Dec 04, 2017 13:30
--- NOTE | 2017-12-04 13:33 | History & Physical ---
History and Physical History & Physicial SOURCE OF INFORMATION: The patient and EMR. HISTORY OF PRESENT ILLNESS: The patient is a pleasant 82-year-old male with a history of the right-sided hemiplegia. The patient had been admitted in the hospital recently with new diagnosis of sob and transient hypoxemia, reported in the SNIF . per Facility report, there is no episode of Sz, or fever, chills. No dizziness, no chest pain ROS: all 12 elements of ROS revewied , pertinent negative and positive as above PAST MEDICAL HISTORY: Chronic kidney disease stage 3-4, CVA with right hemiplegia, cardiomyopathy with preserved ejection fraction (50than the previous encounters), atrial fibrillation, neuropathic pain, dementia, seizure disorder (new diagnosis since prior to admission). CHF- Diastolic PAST SURGICAL HISTORY: Denies. ALLERGIES: Wale Inhibitor. SOCIAL HISTORY: The patient is currently living in the detention facility. The patient denies any history of illicit drug abuse, smoking or alcohol abuse. The patient's is actively involved in the patient's care, who is the main point of contact for the last since last year. FAMILY HISTORY: Reviewed, noncontributory. PHYSICAL EXAMINATION: VITAL SIGNS: Blood pressure 140/80, temperature 98.2 degrees, pulse rate 80, pulse oximetry 98% on two liters of oxygen and respiratory rate 18-20. HEAD AND NECK: Atraumatic and normocephalic. CHEST: Bronchial BS, diffuse wheezing HEART: S1 and S2. IRegular rate and rhythm. ABDOMEN: Soft. No organomegaly. MUSCULOSKELETAL: Positive for right hemiplegia at baseline. NEUROLOGY: The patient is awake. right side weakness, alert and oriented x2 at baseline. LABORATORY AND DIAGNOSTIC DATA: dated , reviewed and reconciled in the chart ASSESSMENT AND PLAN: 1. Acute Hypoxemic RF, CHF exacerbation vs Brochitis vs Chemical aspiration 2. Seizures d/o 2. Dementia. 3. Cerebrovascular accident with right hemiplegia. 4. Atrial fibrillation with controlled rate on therapeutic ATC. 5. Congestive heart failure - diastolic with the preserved ejection fraction. 6. Hypothyroidism. 7. Hypertension. 8. Acute on chronic renal failure, 9. Benign prostatic hypertrophy. 10. Gastrointestinal and deep vein thrombosis prophylaxes. PLAN OF CARE: Uptitrated lasix. Swallow eval. Empirical abx. Resume with the current medications including valproic acid and Keppra. Rezvani,Mohammad MD Dec 04, 2017 13:33
--- NOTE | 2017-12-04 13:39 | General Progress Note ---
Assessment/Plan Assessment/Plan S: I am doing ok O: appears comfortable. minimal sob. PHYSICAL EXAMINATION: HEAD AND NECK: Atraumatic and normocephalic. CHEST: Bronchial BS, No wheezing, HEART: S1 and S2. IRegular rate and rhythm. ABDOMEN: Soft. No organomegaly. MUSCULOSKELETAL: Positive for right hemiplegia at baseline. NEUROLOGY: The patient is awake. right side weakness, alert and oriented x2 at baseline. Meds: reviewed and reconciled including Zosyn ASSESSMENT AND PLAN: 1. Acute Hypoxemic RF, CHF exacerbation vs Brochitis vs Chemical aspiration 2. Seizures d/o 2. Dementia. 3. Cerebrovascular accident with right hemiplegia. 4. Atrial fibrillation with controlled rate on therapeutic ATC. 5. Congestive heart failure - diastolic with the preserved ejection fraction. 6. Hypothyroidism. 7. Hypertension. 8. Acute on chronic renal failure, 9. Benign prostatic hypertrophy. 10. Gastrointestinal and deep vein thrombosis prophylaxes. PLAN OF CARE: stable basal infiltrates, New asp ? Volume overload? will uptitrated lasix and will order Speech eval Subjective Allergies: Coded Allergies: MARYANA INHIBITORS (Unverified Allergy, Unknown, 01/31/14) ARB-ANGIOTENSIN RECEPTOR ANTAGONIST (Unverified Allergy, Unknown, 01/31/14) Objective Last 24 Hour Vital Signs Date Time Temp Pulse Resp B/P (MAP) Pulse Ox O2 Delivery O2 Flow Rate FiO2 12/04/17 12:00 97.7 102 18 133/77 (95) 96 97.7 12/04/17 09:44 95 114/70 12/04/17 09:00 Room Air 2.0 12/04/17 08:00 109 12/04/17 08:00 99.0 95 18 114/70 (85) 99 99.0 12/04/17 06:18 106 155/85 12/04/17 06:18 156/85 12/04/17 06:18 155/85 12/04/17 01:11 Room Air 12/03/17 23:25 100 24 135/89 99 Room Air 12/03/17 23:25 97.7 100 24 135/89 99 Room Air 97.7 12/03/17 20:30 82 13 128/86 98 Room Air 12/03/17 19:54 97.7 97 38 124/76 100 Nasal Cannula 3.0 97.7 12/03/17 19:54 97 38 Nasal Cannula 3.0 12/03/17 19:38 97.7 100 20 117/73 97 Nasal Cannula 3.0 97.7 Intake and Output 12/03/17 12/04/17 19:00 07:00 Output Total 200 ml Balance -200 ml Output Urine Total 200 ml Laboratory Tests 12/03/17 20:07: White Blood Count 4.1L, Red Blood Count 3.34L, Hemoglobin 9.9L, Hematocrit 29.9L , Mean Corpuscular Volume 89, Mean Corpuscular Hemoglobin 29.6, Mean Corpuscular Hemoglobin Concent 33.1, Red Cell Distribution Width 16.2H, Platelet Count 122L, Mean Platelet Volume 6.8, Neutrophils (%) (Auto) 53.3, Lymphocytes (%) (Auto) 28.2, Monocytes (%) (Auto) 13.5H, Eosinophils (%) (Auto) 3.8H, Basophils (%) (Auto) 1.2, Sodium Level 141, Potassium Level 4.7, Chloride Level 111H, Carbon Dioxide Level 22, Anion Gap 8, Blood Urea Nitrogen 29H, Creatinine 2.1H, Estimat Glomerular Filtration Rate , Glucose Level 124H, Calcium Level 8.7, Total Bilirubin 0.5, Aspartate Amino Transf (AST/SGOT) 14L, Alanine Aminotransferase (ALT/SGPT) 19, Alkaline Phosphatase 74, Total Protein 7.9, Albumin 3.2L, Globulin 4.7, Albumin/Globulin Ratio 0.7L 12/04/17 00:30: White Blood Count 4.4L, Red Blood Count 3.21L, Hemoglobin 9.1L, Hematocrit 28.6L , Mean Corpuscular Volume 89, Mean Corpuscular Hemoglobin 28.5, Mean Corpuscular Hemoglobin Concent 32.0, Red Cell Distribution Width 15.8H, Platelet Count 114L, Mean Platelet Volume 6.8, Neutrophils (%) (Auto) 52.0, Lymphocytes (%) (Auto) 28.9, Monocytes (%) (Auto) 14.4H, Eosinophils (%) (Auto) 3.8H, Basophils (%) (Auto) 0.9, Sodium Level 142, Potassium Level 4.5, Chloride Level 112H, Carbon Dioxide Level 24, Anion Gap 6, Blood Urea Nitrogen 30H, Creatinine 2.1H, Estimat Glomerular Filtration Rate , Glucose Level 98, Calcium Level 8.6, Total Bilirubin 0.5, Aspartate Amino Transf (AST/SGOT) 14L, Alanine Aminotransferase (ALT/SGPT) 20, Alkaline Phosphatase 65, Total Protein 7.3, Albumin 3.0L, Globulin 4.3, Albumin/Globulin Ratio 0.7L, Prothrombin Time 30.9H , Prothromb Time International Ratio 3.1H, Activated Partial Thromboplast Time 49H, Magnesium Level 1.8, Troponin I 0.008, Pro-B-Type Natriuretic Peptide 5736H , Triglycerides Level 40, Cholesterol Level 136, LDL Cholesterol 88, HDL Cholesterol 45, Cholesterol/HDL Ratio 3.0L, Thyroid Stimulating Hormone (TSH) 6.386H, Digoxin Level < 0.2L 12/04/17 06:30: Sodium Level 142, Potassium Level 4.3, Chloride Level 112H, Carbon Dioxide Level 20L, Anion Gap 10, Blood Urea Nitrogen 28H, Creatinine 1.9H, Estimat Glomerular Filtration Rate , Glucose Level 85, Calcium Level 9.0, Pro-B-Type Natriuretic Peptide 4935H, Hemoglobin A1c 6.4H Height (Feet): 6 Height (Inches): 0.00 Weight (Pounds): 220 Ondina Geiger MD Dec 04, 2017 13:39
[2017-12-04] MEDS: Piperacillin/Tazobactam 3.375 GM in D5W 110 ML IVPB SCH ×2 (14:47→21:32)
[2017-12-04 16:00] VITALS: BP 129/85
[2017-12-04] MEDS ORDERED: Warfarin Sodium 5mg ORAL SCH (17:00)
--- NOTE | 2017-12-04 17:19 | Consultation ---
Consult Note Consult Note DICT # [id number] Luther Carroll MD Dec 04, 2017 17:19
[2017-12-04] MEDS ORDERED: Albuterol/Ipratropium 3ml neb HHN PRN (17:30)
--- NOTE | 2017-12-04 17:55 | Cardiology Progress Note ---
Assessment/Plan Assessment/Plan The patient is seen and examined, full consult note will be dictated. Objective Last 24 Hour Vital Signs Date Time Temp Pulse Resp B/P (MAP) Pulse Ox O2 Delivery O2 Flow Rate FiO2 12/04/17 14:46 102 133/77 12/04/17 14:46 133/77 12/04/17 14:46 133/77 12/04/17 12:00 97.7 102 18 133/77 (95) 96 97.7 12/04/17 09:44 95 114/70 12/04/17 09:00 Room Air 2.0 12/04/17 08:00 109 12/04/17 08:00 99.0 95 18 114/70 (85) 99 99.0 12/04/17 06:18 106 155/85 12/04/17 06:18 156/85 12/04/17 06:18 155/85 12/04/17 01:11 Room Air 12/03/17 23:25 100 24 135/89 99 Room Air 12/03/17 23:25 97.7 100 24 135/89 99 Room Air 97.7 12/03/17 20:30 82 13 128/86 98 Room Air 12/03/17 19:54 97.7 97 38 124/76 100 Nasal Cannula 3.0 97.7 12/03/17 19:54 97 38 Nasal Cannula 3.0 12/03/17 19:38 97.7 100 20 117/73 97 Nasal Cannula 3.0 97.7 Intake and Output 12/03/17 12/04/17 19:00 07:00 Output Total 200 ml Balance -200 ml Output Urine Total 200 ml Laboratory Tests Test 12/03/17 20:07 12/04/17 00:30 12/04/17 06:30 White Blood Count 4.1 K/UL (4.8-10.8) L 4.4 K/UL (4.8-10.8) L Red Blood Count 3.34 M/UL (4.70-6.10) L 3.21 M/UL (4.70-6.10) L Hemoglobin 9.9 G/DL (14.2-18.0) L 9.1 G/DL (14.2-18.0) L Hematocrit 29.9 % (42.0-52.0) L 28.6 % (42.0-52.0) L Mean Corpuscular Volume 89 FL (80-99) 89 FL (80-99) Mean Corpuscular Hemoglobin 29.6 PG (27.0-31.0) 28.5 PG (27.0-31.0) Mean Corpuscular Hemoglobin Concent 33.1 G/DL (32.0-36.0) 32.0 G/DL (32.0-36.0) Red Cell Distribution Width 16.2 % (11.6-14.8) H 15.8 % (11.6-14.8) H Platelet Count 122 K/UL (150-450) L 114 K/UL (150-450) L Mean Platelet Volume 6.8 FL (6.5-10.1) 6.8 FL (6.5-10.1) Neutrophils (%) (Auto) 53.3 % (45.0-75.0) 52.0 % (45.0-75.0) Lymphocytes (%) (Auto) 28.2 % (20.0-45.0) 28.9 % (20.0-45.0) Monocytes (%) (Auto) 13.5 % (1.0-10.0) H 14.4 % (1.0-10.0) H Eosinophils (%) (Auto) 3.8 % (0.0-3.0) H 3.8 % (0.0-3.0) H Basophils (%) (Auto) 1.2 % (0.0-2.0) 0.9 % (0.0-2.0) Sodium Level 141 MMOL/L (136-145) 142 MMOL/L (136-145) 142 MMOL/L (136-145) Potassium Level 4.7 MMOL/L (3.5-5.1) 4.5 MMOL/L (3.5-5.1) 4.3 MMOL/L (3.5-5.1) Chloride Level 111 MMOL/L (98-107) H 112 MMOL/L (98-107) H 112 MMOL/L (98-107) H Carbon Dioxide Level 22 MMOL/L (21-32) 24 MMOL/L (21-32) 20 MMOL/L (21-32) L Anion Gap 8 mmol/L (5-15) 6 mmol/L (5-15) 10 mmol/L (5-15) Blood Urea Nitrogen 29 mg/dL (7-18) H 30 mg/dL (7-18) H 28 mg/dL (7-18) H Creatinine 2.1 MG/DL (0.55-1.30) H 2.1 MG/DL (0.55-1.30) H 1.9 MG/DL (0.55-1.30) H Estimat Glomerular Filtration Rate mL/min (>60) mL/min (>60) mL/min (>60) Glucose Level 124 MG/DL (74-106) H 98 MG/DL (74-106) 85 MG/DL (74-106) Calcium Level 8.7 MG/DL (8.5-10.1) 8.6 MG/DL (8.5-10.1) 9.0 MG/DL (8.5-10.1) Total Bilirubin 0.5 MG/DL (0.2-1.0) 0.5 MG/DL (0.2-1.0) Aspartate Amino Transf (AST/SGOT) 14 U/L (15-37) L 14 U/L (15-37) L Alanine Aminotransferase (ALT/SGPT) 19 U/L (12-78) 20 U/L (12-78) Alkaline Phosphatase 74 U/L (46-116) 65 U/L (46-116) Total Protein 7.9 G/DL (6.4-8.2) 7.3 G/DL (6.4-8.2) Albumin 3.2 G/DL (3.4-5.0) L 3.0 G/DL (3.4-5.0) L Globulin 4.7 g/dL 4.3 g/dL Albumin/Globulin Ratio 0.7 (1.0-2.7) L 0.7 (1.0-2.7) L Prothrombin Time 30.9 SEC (9.30-11.50) H Prothromb Time International Ratio 3.1 (0.9-1.1) H Activated Partial Thromboplast Time 49 SEC (23-33) H Magnesium Level 1.8 MG/DL (1.8-2.4) Troponin I 0.008 ng/mL (0.000-0.056) 0.013 ng/mL (0.000-0.056) Pro-B-Type Natriuretic Peptide 5736 pg/mL (0-125) H 4935 pg/mL (0-125) H Triglycerides Level 40 MG/DL (30-150) Cholesterol Level 136 MG/DL (< 200) LDL Cholesterol 88 mg/dL (<100) HDL Cholesterol 45 MG/DL (40-60) Cholesterol/HDL Ratio 3.0 (3.3-4.4) L Thyroid Stimulating Hormone (TSH) 6.386 uiU/mL (0.358-3.740) Digoxin Level < 0.2 NG/ML (0.5-2.0) L Hemoglobin A1c 6.4 % (4.3-6.0) H C-Reactive Protein, Quantitative 2.3 mg/dL (0.00-0.90) H Tj Crespo MD Dec 04, 2017 17:55
[2017-12-04] MEDS: Tamsulosin 0.4mg cap ORAL SCH (18:50)
[2017-12-04] MEDS: Docusate 100mg cap ORAL SCH (18:50)
[2017-12-04 20:00] VITALS: BP 130/96
[2017-12-04] MEDS ORDERED: Tamsulosin 0.4mg cap ORAL SCH (21:00)
--- NOTE | 2017-12-04 21:30 | Consultation ---
DATE OF CONSULTATION: 12/04/2017 INFECTIOUS DISEASE CONSULTATION CONSULTING PHYSICIAN: Lyssa Strong M.D. REFERRING PHYSICIAN: Ondina Geiger M.D. REASON FOR CONSULTATION: Healthcare-acquired pneumonia with cough, dyspnea, and congestion. Recommendation for antibiotics treatment. HISTORY OF PRESENT ILLNESS: The patient is an 82-year-old male with past medical history significant for CVA, cardiomyopathy, atrial fibrillation, hypertension, chronic obstructive pulmonary disease, chronic kidney disease, seizure, and dementia, presented from detention facility with congestion, dyspnea, and cough, which is productive. The patient also had increased oxygen requirement as per the nursing staff at the detention [facility], which increased to 3 liters nasal cannula. The patient had a chest x-ray in the emergency room, which showed evidence of basal infiltration suspicious for pneumonia. So, Infectious Disease consultation was requested for antibiotics treatment and further management. The patient denied any recent travel or sick contact. No nausea, vomiting, or diarrhea. No urinary symptoms. No recent runny nose, or sore throat. PAST MEDICAL HISTORY: Significant for coronary artery disease, hypertension, chronic obstructive pulmonary disease, chronic kidney disease, encephalopathy, CVA, dementia, and seizure. PAST SURGICAL HISTORY: Not on record. MEDICATIONS: The patient is on a long list of medications. Please refer to the medical record for further details. ALLERGIES: He is allergic to MARYANA inhibitor and ARB. SOCIAL HISTORY: The patient lives at the detention facility. No recent drugs, tobacco, or alcohol. REVIEW OF SYSTEMS: A 14-point of system reviewed were all negative apart from the one I mentioned above in my History and Physical. PHYSICAL EXAMINATION: VITAL SIGNS: Temperature 97.7, pulse 102, respirations 18, blood pressure 133/77, and pulse ox 96% on room air. GENERAL: An elderly male, lying in bed, awake, alert, responsive, and not in acute distress. HEENT: Normocephalic and atraumatic. Pupils reactive to light. Mild facial droop. Moist oral mucosa. No exudate. NECK: Supple. No lymphadenopathy. CARDIOVASCULAR: Regular rate and rhythm. No murmur or gallop. LUNGS: He had diminished breathing sounds at the bases with crackles. Normal breathing effort. ABDOMEN: Soft, obese, nontender, and nondistended. Normal bowel sounds. No hepatosplenomegaly. No ascites. EXTREMITIES: Trace edema. No cyanosis or clubbing. SKIN: No rash. No hives. LABORATORY AND DIAGNOSTIC DATA: White count 4.4, hemoglobin of 9.1, and platelet count of 114,000. BUN of 28 and creatinine of 1.9. AST of 14 and ALT of 20. IMAGING: Chest x-ray showed hypoventilation, nonspecific bibasilar opacity, may represent atelectases and infectious or inflammatory process is not excluded. ASSESSMENT AND RECOMMENDATION: 1. Healthcare-acquired pneumonia with bilateral basal infiltrates and productive cough. We will start the patient on Zosyn empiric coverage and send sputum culture. We will monitor his chest x-ray with aspiration precaution and keep head of bed more than 30-degree all the time. May need swallow evaluation to rule out silent aspiration. 2. Acute on chronic renal insufficiency. Avoid nephrotoxics. Monitor renal function. Renal consult for further evaluation. 3. At high risk for aspiration. Recommend swallow evaluation and aspiration precaution. Keep head of bed more than 30-degree all the time. 4. Acute congestive heart failure with dyspnea. Continue diuresis. We will monitor daily weights with fluid restriction. Consult Cardiology. Thank you for the consult. ID will continue to follow. Please feel free to call with any questions. Lyssa Strong M.D. DR: SATISH JOB#: [id number] CC:
[2017-12-05] VITALS: BP 115/76
--- NOTE | 2017-12-05 | Consultation ---
DATE OF CONSULTATION: 12/04/2017 PULMONARY CONSULTATION CONSULTING PHYSICIAN: Luther Carroll M.D. REFERRING PHYSICIAN: Ondina Geiger M.D. REASON FOR CONSULTATION: Respiratory failure. HISTORY OF PRESENT ILLNESS: The patient is an 82-year-old male with a history of congestive heart failure, CVA, atrial fibrillation, chronic obstructive pulmonary disease, and alf resident, presenting with several days of cough, congestion, and shortness of breath. He was having increased O2 needs, facial swelling, abdominal distention, and lower extremity edema. He has been afebrile with a T-max of 99. Vital signs are stable. Sinus tachycardia to the low 100s. Normal blood pressure. Saturating well on room air. White count was 4.1, hemoglobin 9.9 on presentation, and platelet count 122,000. Troponin was 0.008 and 0.013. BNP was elevated at 5736. The patient has been diuresed and admitted for further management. Chest x-ray done in the emergency department showed some bibasilar opacities versus atelectasis. Per his significant other at the bedside, he has been having increased cough and congestion. No wheezing. No hemoptysis. No other complaints. PAST MEDICAL HISTORY: 1. Congestive heart failure. 2. Chronic obstructive pulmonary disease. 3. Chronic atrial fibrillation. 4. Dementia. 5. Prior cerebrovascular accident. 6. Chronic kidney disease. 7. History of seizure disorder. 8. Chronic obstructive pulmonary disease. ALLERGIES: MARYANA inhibitors and ARB's. MEDICATIONS: Prior to admission medications reviewed. Current medications reviewed. SOCIAL HISTORY: He is a alf resident. Former tobacco, none current. No drug or alcohol use. FAMILY HISTORY: Noncontributory. REVIEW OF SYSTEMS: Unobtainable. PHYSICAL EXAMINATION: VITAL SIGNS: Temperature 97.7, pulse 102, blood pressure 133/77, respiratory rate 18, and saturating 100% on two liters. GENERAL: A well-developed and well-nourished male with dysarthria. HEENT: Normocephalic and atraumatic. Right facial droop. NECK: Supple without lymphadenopathy. CHEST: Clear with bibasilar rales. HEART: Irregularly irregular. ABDOMEN: Soft, nontender, and nondistended. EXTREMITIES: No clubbing, clubbing, or edema. ANCILLARY DATA: Laboratories reviewed. Chest x-ray with mild vascular congestion. ASSESSMENT: The patient is an 82-year-old male with a alf resident with a history of chronic obstructive pulmonary disease, congestive heart failure, chronic kidney disease, dementia, prior cerebrovascular accident, and chronic atrial fibrillation, presenting with shortness of breath likely secondary to decompensated heart failure. He is also on Zosyn for possible aspiration and healthcare-associated pneumonia. PROBLEM LIST: 1. Acute hypoxemic respiratory failure likely secondary to decompensated heart failure. 2. Bibasilar opacities, likely edema, possible aspiration. 3. Chronic obstructive pulmonary disease. 4. Congestive heart failure with acute decompensated heart failure. 5. Chronic atrial fibrillation. 6. Dementia. 7. Prior cerebrovascular accident. 8. Chronic kidney disease. 9. half-way resident. TREATMENT PLAN: 1. Optimize pulmonary hygiene/mobilize as tolerated. 2. Titrate on FiO2 to keep saturations greater than 90%. 3. Wpxcd-ewn-mgbfl and p.r.n. DuoNebs. 4. Continue b.i.d. budesonide. 5. Continue Zosyn per ID. 6. Monitor volumes and renal function, continue diuresis as tolerated. 7. Aspiration precautions. 8. Swallow evaluation. 9. DVT PROPHYLAXIS: The patient is on anticoagulation. 10. The patient is Full Code, continue to discuss goals of care. Dr. Geiger, thank you for allowing me to assist in the care of your patient. If I may be of any assistance in the future, please do not hesitate to ask. Luther Carroll M.D. DR: YADIRA JOB#: [id number] CC:
[2017-12-05 04:00] VITALS: BP 141/99
[2017-12-05] MEDS: HydrALAZINE 25mg tab ORAL SCH ×2 (05:41→13:24)
[2017-12-05] MEDS: Metoprolol Tartrate 50mg tab ORAL SCH ×3 (05:41→22:00)
[2017-12-05] MEDS: Piperacillin/Tazobactam 3.375 GM in D5W 110 ML IVPB SCH ×3 (05:42→22:16)
[2017-12-05 08:00] VITALS: BP 136/75
[2017-12-05 08:28] LABS: BASOPHILS % (AUTO) 0.7 % (0.0-2.0); EOSINOPHILS % (AUTO) 3.8 % (0.0-3.0); HEMATOCRIT 31.9 % (42.0-52.0); HEMOGLOBIN 10.3 G/DL (14.2-18.0); LYMPHOCYTES % (AUTO) 30.3 % (20.0-45.0); MEAN CORPUSCULAR VOLUME 90 FL (80-99); MONOCYTES % (AUTO) 14.3 % (1.0-10.0); NEUTROPHILS % (AUTO) 50.9 % (45.0-75.0); PLATELET COUNT 124 K/UL (150-450); RED BLOOD COUNT 3.56 M/UL (4.70-6.10); WHITE BLOOD COUNT 4.4 K/UL (4.8-10.8)
[2017-12-05 08:42] LABS: INR 2.9 (0.9-1.1)
--- NOTE | 2017-12-05 08:53 | Pulmonology Progress Note ---
Assessment/Plan Assessment/Plan ASSESSMENT: The patient is an 82-year-old male with a snf resident with a history of chronic obstructive pulmonary disease, congestive heart failure, chronic kidney disease, dementia, prior cerebrovascular accident, and chronic atrial fibrillation, presenting with shortness of breath likely secondary to decompensated heart failure. He is also on Zosyn for possible aspiration and healthcare associated pneumonia. PROBLEM LIST: 1. Acute hypoxemic respiratory failure likely secondary to decompensated heart failure. 2. Bibasilar opacities, likely edema, possible aspiration. 3. Chronic obstructive pulmonary disease. 4. Congestive heart failure with acute decompensated heart failure. 5. Chronic atrial fibrillation. 6. Dementia. 7. Prior cerebrovascular accident. 8. Chronic kidney disease. 9. snf resident. TREATMENT PLAN: 1. Optimize pulmonary hygiene/mobilize as tolerated. 2. Titrate on FiO2 to keep saturations greater than 90%. 3. Brkod-lxf-oskvp and p.r.n. DuoNebs. 4. Continue b.i.d. budesonide. 5. Continue Zosyn per ID. 6. Monitor volumes and renal function, continue diuresis as tolerated. 7. Aspiration precautions. 8. Swallow evaluation. 9. DVT PROPHYLAXIS: The patient is on anticoagulation. 10. The patient is Full Code, continue to discuss goals of care. Subjective Allergies: Coded Allergies: MARYANA INHIBITORS (Unverified Allergy, Unknown, 01/31/14) ARB-ANGIOTENSIN RECEPTOR ANTAGONIST (Unverified Allergy, Unknown, 01/31/14) Subjective -528, AFVSS x ST, O2 needs stable Denies SOB, no cough, no wheezing, no Cp Objective Last 24 Hour Vital Signs Date Time Temp Pulse Resp B/P (MAP) Pulse Ox O2 Delivery O2 Flow Rate FiO2 12/05/17 05:41 123 134/100 12/05/17 05:41 134/100 12/05/17 05:41 134/100 12/05/17 04:00 122 12/05/17 04:00 98.0 121 19 141/99 (113) 95 98.0 12/05/17 00:00 97.9 98 18 115/76 (89) 96 97.9 12/05/17 00:00 98 12/04/17 21:32 130/96 12/04/17 21:31 107 130/96 12/04/17 21:31 130/96 12/04/17 21:00 Nasal Cannula 2.0 12/04/17 20:00 98.1 107 19 130/96 (107) 99 98.1 12/04/17 20:00 124 12/04/17 16:00 123 12/04/17 16:00 97.2 102 18 129/85 (100) 97.2 12/04/17 14:46 102 133/77 12/04/17 14:46 133/77 12/04/17 14:46 133/77 12/04/17 12:00 97.7 102 18 133/77 (95) 96 97.7 12/04/17 12:00 107 12/04/17 09:44 95 114/70 12/04/17 09:00 Room Air 2.0 Intake and Output 12/04/17 12/05/17 19:00 07:00 Intake Total 360 ml 112 ml Output Total 400 ml 600 ml Balance -40 ml -488 ml Intake Oral 360 ml IV Total 112 ml Output Urine Total 400 ml 600 ml # Bowel Movements 1 General Appearance: WD/WN, no acute distress HEENT: normocephalic, atraumatic, anicteric, mucous membranes moist Respiratory/Chest: chest wall non-tender, lungs clear, crackles/rales Cardiovascular: normal peripheral pulses, normal rate, regular rhythm Abdomen: normal bowel sounds, soft, non tender, no organomegaly, non distended , no mass Extremities: no cyanosis, no clubbing, no edema Microbiology Date/Time Source Procedure Growth Status 12/03/17 20:22 Blood Blood Culture - Preliminary NO GROWTH AFTER 24 HOURS Resulted 12/03/17 20:07 Blood Blood Culture - Preliminary NO GROWTH AFTER 24 HOURS Resulted Laboratory Tests 12/05/17 07:40: White Blood Count 4.4L, Red Blood Count 3.56L, Hemoglobin 10.3L, Hematocrit 31.9L, Mean Corpuscular Volume 90, Mean Corpuscular Hemoglobin 28.8, Mean Corpuscular Hemoglobin Concent 32.1, Red Cell Distribution Width 16.0H, Platelet Count 124L, Mean Platelet Volume 7.4, Neutrophils (%) (Auto) 50.9, Lymphocytes (%) (Auto) 30.3, Monocytes (%) (Auto) 14.3H, Eosinophils (%) (Auto) 3.8H, Basophils (%) (Auto) 0.7, Prothrombin Time 28.8H, Prothromb Time International Ratio 2.9H, Sodium Level [Pending], Potassium Level [Pending], Chloride Level [Pending], Carbon Dioxide Level [Pending], Blood Urea Nitrogen [ Pending], Creatinine [Pending], Estimat Glomerular Filtration Rate [Pending], Glucose Level [Pending], Uric Acid [Pending], Calcium Level [Pending], Phosphorus Level [Pending], Magnesium Level [Pending], Iron Level [Pending], Unsaturated Iron Binding [Pending], Ferritin [Pending], Total Bilirubin [Pending ], Gamma Glutamyl Transpeptidase [Pending], Aspartate Amino Transf (AST/SGOT) [ Pending], Alanine Aminotransferase (ALT/SGPT) [Pending], Alkaline Phosphatase [ Pending], Total Creatine Kinase [Pending], Troponin I [Pending], Pro-B-Type Natriuretic Peptide [Pending], Total Protein [Pending], Albumin [Pending], Globulin [Pending], Triglycerides Level [Pending], Cholesterol Level [Pending], LDL Cholesterol [Pending], HDL Cholesterol [Pending], Cholesterol/HDL Ratio [ Pending], Vitamin B12 Level [Pending], Folate [Pending] Current Medications Medications (Trade) Dose Ordered Sig/Con Route PRN Reason Start Time Stop Time Status Last Admin Dose Admin Acetaminophen (Tylenol) 650 mg Q4H PRN ORAL Mild Pain (Pain Scale 1-3) 12/03/17 23:00 01/02/18 22:59 Albuterol/ Ipratropium (Albuterol/ Ipratropium) 3 ml Q4H PRN HHN Shortness of Breath 12/04/17 17:30 12/09/17 17:29 Albuterol/ Ipratropium (Albuterol/ Ipratropium) 3 ml THREE TIMES A DAY PRN HHN Shortness of Breath 12/03/17 23:00 12/08/17 22:59 Budesonide (Pulmicort) 0.25 mg EVERY 12 HOURS HHN 12/04/17 09:00 01/03/18 08:59 Dextrose (Dextrose 50%) 25 ml STAT PRN IV Hypoglycemia 12/03/17 23:00 01/02/18 22:59 Dextrose (Dextrose 50%) 50 ml STAT PRN IV Hypoglycemia 12/03/17 23:00 01/02/18 22:59 Diltiazem HCl (Cardizem CD) 240 mg DAILY ORAL 12/04/17 09:00 01/03/18 08:59 12/04/17 09:44 Divalproex Sodium (Depakote ER) 250 mg EVERY 12 HOURS ORAL 12/04/17 09:00 01/03/18 08:59 12/04/17 21:32 Docusate Sodium (Colace) 100 mg TID ORAL 12/04/17 18:00 01/03/18 08:59 12/04/17 18:50 Famotidine (Pepcid) 20 mg BID ORAL 12/04/17 09:00 01/03/18 08:59 12/04/17 18:49 Furosemide (Lasix) 40 mg DAILY IV 12/04/17 13:41 01/03/18 13:40 12/04/17 14:46 Guaifenesin (Robitussin) 200 mg Q6H PRN PO cough & congestion 12/04/17 01:30 01/03/18 01:29 12/04/17 15:02 Hydralazine HCl (Apresoline) 25 mg Q8HR ORAL 12/04/17 06:00 01/03/18 05:59 12/05/17 05:41 Isosorbide Dinitrate (Isordil) 10 mg Q8HR ORAL 12/04/17 06:00 01/03/18 05:59 12/05/17 05:41 Levetiracetam (Keppra) 500 mg Q12HR ORAL 12/04/17 09:00 01/03/18 08:59 12/04/17 21:32 Levothyroxine Sodium (Synthroid) 75 mcg DAILY@0630 ORAL 12/04/17 06:30 01/03/18 06:29 12/05/17 05:41 Metoprolol Tartrate (Lopressor) 50 mg Q8HR ORAL 12/04/17 06:00 01/03/18 05:59 12/05/17 05:41 Piperacillin Sod/ Tazobactam Sod 3.375 gm/Dextrose 110 ml @ 27.5 mls/hr EVERY 8 HOURS IVPB 12/04/17 14:00 12/09/17 13:59 12/05/17 05:42 Tamsulosin HCl (Flomax) 0.4 mg BID ORAL 12/04/17 18:00 01/03/18 20:59 12/04/17 18:50 Warfarin Sodium (Coumadin per pharmacy) 1 ea DAILY PRN MISC Per rx protocol 12/03/17 23:00 01/02/18 22:59 Zolpidem Tartrate (Ambien) 5 mg DAILYPRN PRN ORAL Insomnia 12/03/17 23:00 12/10/17 22:59 Luther Carroll MD Dec 05, 2017 08:53
[2017-12-05 09:01] LABS: CREATINE KINASE 125 U/L (26-308)
[2017-12-05 09:02] LABS: CHOLESTEROL 153 MG/DL (< 200); FERRITIN 146 NG/ML (8-388); GAMMA GLUTAMYL TRANSPEPTIDASE 118 U/L (5-85); HDL CHOLESTEROL 49 MG/DL (40-60); PHOSPHORUS 3.6 MG/DL (2.5-4.9); TRIGLYCERIDES 44 MG/DL (30-150)
[2017-12-05] MEDS: Docusate 100mg cap ORAL SCH ×3 (09:13→17:32)
[2017-12-05] MEDS: dilTIAZem HCl CD 240mg cap ORAL SCH (09:13)
[2017-12-05] MEDS: Depakote ER 250mg tab ORAL SCH ×2 (09:13→22:17)
[2017-12-05] MEDS: Tamsulosin 0.4mg cap ORAL SCH ×2 (09:13→17:32)
[2017-12-05] MEDS: Budesonide HHN 0.25mg/2ml ud HHN SCH ×2 (09:37→21:20)
--- NOTE | 2017-12-05 09:37 | General Progress Note ---
Assessment/Plan Assessment/Plan S: I am doing ok O: appears comfortable. Persistent sob. PHYSICAL EXAMINATION: HEAD AND NECK: Atraumatic and normocephalic. CHEST: Bronchial BS, No wheezing, HEART: S1 and S2. IRegular rate and rhythm. ABDOMEN: Soft. No organomegaly. MUSCULOSKELETAL: Positive for right hemiplegia at baseline. NEUROLOGY: The patient is awake. right side weakness, alert and oriented x2 at baseline. Meds: reviewed and reconciled including Zosyn ASSESSMENT AND PLAN: 1. Acute Hypoxemic RF, CHF exacerbation vs Brochitis vs Chemical aspiration 2. Seizures d/o 2. Dementia. 3. Cerebrovascular accident with right hemiplegia. 4. Atrial fibrillation with controlled rate on therapeutic ATC. 5. Congestive heart failure - diastolic with the preserved ejection fraction. 6. Hypothyroidism. 7. Hypertension. 8. Acute on chronic renal failure, 9. Benign prostatic hypertrophy. 10. Gastrointestinal and deep vein thrombosis prophylaxes. PLAN OF CARE: stable basal infiltrates, New asp ? Volume overload? Increased the Levothyroxin. current pulmonary mgt pending Echo Subjective Allergies: Coded Allergies: MARYANA INHIBITORS (Unverified Allergy, Unknown, 01/31/14) ARB-ANGIOTENSIN RECEPTOR ANTAGONIST (Unverified Allergy, Unknown, 01/31/14) Objective Last 24 Hour Vital Signs Date Time Temp Pulse Resp B/P (MAP) Pulse Ox O2 Delivery O2 Flow Rate FiO2 12/05/17 09:13 125 136/75 12/05/17 08:00 97.0 125 20 136/75 (95) 98 97.0 12/05/17 05:41 123 134/100 12/05/17 05:41 134/100 12/05/17 05:41 134/100 12/05/17 04:00 122 12/05/17 04:00 98.0 121 19 141/99 (113) 95 98.0 12/05/17 00:00 97.9 98 18 115/76 (89) 96 97.9 12/05/17 00:00 98 12/04/17 21:32 130/96 12/04/17 21:31 107 130/96 12/04/17 21:31 130/96 12/04/17 21:00 Nasal Cannula 2.0 12/04/17 20:00 98.1 107 19 130/96 (107) 99 98.1 12/04/17 20:00 124 9/9/18 16:00 123 12/04/17 16:00 97.2 102 18 129/85 (100) 97.2 12/04/17 14:46 102 133/77 12/04/17 14:46 133/77 12/04/17 14:46 133/77 12/04/17 12:00 97.7 102 18 133/77 (95) 96 97.7 12/04/17 12:00 107 12/04/17 09:44 95 114/70 Intake and Output 12/04/17 12/05/17 19:00 07:00 Intake Total 360 ml 112 ml Output Total 400 ml 600 ml Balance -40 ml -488 ml Intake Oral 360 ml IV Total 112 ml Output Urine Total 400 ml 600 ml # Bowel Movements 1 Laboratory Tests 12/05/17 07:40: White Blood Count 4.4L, Red Blood Count 3.56L, Hemoglobin 10.3L, Hematocrit 31.9L, Mean Corpuscular Volume 90, Mean Corpuscular Hemoglobin 28.8, Mean Corpuscular Hemoglobin Concent 32.1, Red Cell Distribution Width 16.0H, Platelet Count 124L, Mean Platelet Volume 7.4, Neutrophils (%) (Auto) 50.9, Lymphocytes (%) (Auto) 30.3, Monocytes (%) (Auto) 14.3H, Eosinophils (%) (Auto) 3.8H, Basophils (%) (Auto) 0.7, Prothrombin Time 28.8H, Prothromb Time International Ratio 2.9H, Sodium Level [Pending], Potassium Level [Pending], Chloride Level [Pending], Carbon Dioxide Level [Pending], Blood Urea Nitrogen [ Pending], Creatinine [Pending], Estimat Glomerular Filtration Rate [Pending], Glucose Level [Pending], Uric Acid 8.1H, Calcium Level [Pending], Phosphorus Level 3.6, Magnesium Level 1.8, Iron Level [Pending], Unsaturated Iron Binding [ Pending], Ferritin 146, Total Bilirubin [Pending], Gamma Glutamyl Transpeptidase 118H, Aspartate Amino Transf (AST/SGOT) [Pending], Alanine Aminotransferase (ALT/SGPT) [Pending], Alkaline Phosphatase [Pending], Total Creatine Kinase 125, Troponin I [Pending], Pro-B-Type Natriuretic Peptide 7976H , Total Protein [Pending], Albumin [Pending], Globulin [Pending], Triglycerides Level 44, Cholesterol Level 153, LDL Cholesterol 95, HDL Cholesterol 49, Cholesterol/HDL Ratio 3.1L, Vitamin B12 Level 597, Folate 6.1L Height (Feet): 6 Height (Inches): 0.00 Weight (Pounds): 220 Ondina Geiger MD Dec 05, 2017 09:37
[2017-12-05 09:40] LABS: % IRON SATURATION 24 % (15-50); ALANINE AMINOTRANSFERASE 17 U/L (12-78); ALBUMIN 3.1 G/DL (3.4-5.0); ALBUMIN/GLOBULIN RATIO 0.7 (1.0-2.7); ALKALINE PHOSPHATASE 69 U/L (46-116); ANION GAP 10 mmol/L (5-15); ASPARTATE AMINO TRANSFERASE 18 U/L (15-37); BILIRUBIN,TOTAL 0.6 MG/DL (0.2-1.0); BLOOD UREA NITROGEN 32 mg/dL (7-18); CALCIUM 8.9 MG/DL (8.5-10.1); CARBON DIOXIDE 22 MMOL/L (21-32); CHLORIDE 110 MMOL/L (98-107); CREATININE 2.3 MG/DL (0.55-1.30); IRON 48 ug/dL (50-175); POTASSIUM 4.7 MMOL/L (3.5-5.1); SODIUM 142 MMOL/L (136-145); TOTAL IRON BINDING CAPACITY 198 ug/dL (250-450)
--- NOTE | 2017-12-05 10:32 | Consultation ---
History of Present Illness General Date patient seen: Dec 04, 2017 Chief Complaint: Upper Respiratory Illness Present Illness HPI 82-year-old male with a history of depression, schizoaffective d/o the right-sided hemiplegia. the pt was more lethargic and has waxing and waning of conciseness. The pt is more confused than baseline. The pt oriented to self a poor historian. He is on Depakote Allergies: Coded Allergies: MARYANA INHIBITORS (Unverified Allergy, Unknown, 01/31/14) ARB-ANGIOTENSIN RECEPTOR ANTAGONIST (Unverified Allergy, Unknown, 01/31/14) Medication History Scheduled Budesonide, Micronized (Budesonide), 0.25 GM MC Q12HR, (Reported) Dextran 70/Hypromellose/Pf (Artificial Tears Drops), 1 EACH OP Q6HR, (Reported) Digoxin* (Digoxin*), 125 MCG ORAL DAILY, (Reported) Diltiazem Hcl (Diltiazem 24HR Cd), 240 MG PO DAILY, (Reported) Divalproex Sodium* (Depakote Er*), 250 MG ORAL EVERY 12 HOURS, (Reported) Docusate Sodium (Docusate Sodium), 100 MG ORAL TID, (Reported) Hydralazine HCl (Hydralazine HCl), 25 MG PO Q8HR, (Reported) Isosorbide Dinitrate* (Isordil*), 10 MG ORAL EVERY 8 HOURS, (Reported) Levetiracetam* (Levetiracetam*), 1,500 MG ORAL Q12HR, (Reported) Levothyroxine Sodium* (Levothyroxine Sodium*), 75 MCG ORAL DAILY, (Reported) Loratadine (Loratadine), 10 MG PO DAILY, (Reported) Metoprolol Tartrate* (Metoprolol Tartrate*), 50 MG ORAL EVERY 8 HOURS, (Reported ) Tamsulosin Hcl (Tamsulosin Hcl*), 0.4 MG ORAL BEDTIME, (Reported) Scheduled PRN Acetaminophen (Acetaminophen), 325 MG ORAL Q4HR PRN for Mild Pain (Pain Scale 1- 3), (Reported) Albuterol Sulfate* (Albuterol Sulfate Hhn*), 3 ML INH Q4H PRN for Shortness of Breath, (Reported) Guaifenesin* (Guaifenesin), 10 ML ORAL Q6H PRN for For Cough, (Reported) Polyvinyl Alcohol (Polyvinyl Alcohol), 15 ML OP EVERY 6 HOURS PRN for BOTH EYES. FOR DRY EYE, (Reported) Patient History Limited by: medical condition History Provided By: Patient, Medical Record, PMD Healthcare decision maker Resuscitation status Full Code Advanced Directive on File No Past Medical/Surgical History Past Medical/Surgical History: (1) Anemia (2) Cardiomyopathy (3) Convulsive generalized seizure disorder (4) Hemiplegia affecting right dominant side (5) Vascular dementia with behavior disturbance (6) partial complex sz , exacerbation (7) stroke L MCA, subacute, ischemic (8) Acute renal failure (9) Seizure disorder (10) CVA (cerebral infarction) (11) Hyperkalemia (12) Arthralgia (13) Sepsis (14) UTI (urinary tract infection) (15) Pneumonia (16) Alteration consciousness (17) Alteration consciousness (18) Encephalopathy acute (19) Encephalopathy acute (20) Dementia, vascular (21) Epileptic seizure, generalized (22) Status epilepticus, generalized convulsive (23) Altered level of consciousness (24) CKD (chronic kidney disease) (25) Abnormal laboratory test result (26) Abnormal laboratory test result (27) Arterial ischemic stroke, MCA (middle cerebral artery), left, chronic (28) refusing food/po meds (29) L MCA subacute stroke (30) Atrial fibrillation with RVR (31) Arrhythmia (32) Afib (33) Cardiomyopathy (34) Acute CHF (35) Acute on chronic renal insufficiency (36) HCAP (healthcare-associated pneumonia) (37) At high risk for aspiration Review of Systems Psychiatric: Reports: prior hx, anxiety, depressed feelings, emotional problems Physical Exam General Appearance: no apparent distress, lethargic, confused Neurologic: depressed affect Last 24 Hour Vital Signs Date Time Temp Pulse Resp B/P (MAP) Pulse Ox O2 Delivery O2 Flow Rate FiO2 12/05/17 09:47 125 20 99 Nasal Cannula 3.0 32 12/05/17 09:44 126 18 Nasal Cannula 4.0 32 12/05/17 09:38 126 18 96 Nasal Cannula 3.0 32 12/05/17 09:13 125 136/75 12/05/17 08:00 97.0 125 20 136/75 (95) 98 97.0 12/05/17 05:41 123 134/100 12/05/17 05:41 134/100 12/05/17 05:41 134/100 12/05/17 04:00 122 12/05/17 04:00 98.0 121 19 141/99 (113) 95 98.0 12/05/17 00:00 97.9 98 18 115/76 (89) 96 97.9 12/05/17 00:00 98 12/04/17 21:32 130/96 12/04/17 21:31 107 130/96 12/04/17 21:31 130/96 12/04/17 21:00 Nasal Cannula 2.0 12/04/17 20:00 98.1 107 19 130/96 (107) 99 98.1 12/04/17 20:00 124 12/04/17 16:00 123 12/04/17 16:00 97.2 102 18 129/85 (100) 97.2 12/04/17 14:46 102 133/77 12/04/17 14:46 133/77 12/04/17 14:46 133/77 12/04/17 12:00 97.7 102 18 133/77 (95) 96 97.7 12/04/17 12:00 107 Intake and Output 12/04/17 12/05/17 19:00 07:00 Intake Total 360 ml 112 ml Output Total 400 ml 600 ml Balance -40 ml -488 ml Intake Oral 360 ml IV Total 112 ml Output Urine Total 400 ml 600 ml # Bowel Movements 1 Laboratory Tests Test 12/05/17 07:40 White Blood Count 4.4 K/UL (4.8-10.8) L Red Blood Count 3.56 M/UL (4.70-6.10) L Hemoglobin 10.3 G/DL (14.2-18.0) L Hematocrit 31.9 % (42.0-52.0) L Mean Corpuscular Volume 90 FL (80-99) Mean Corpuscular Hemoglobin 28.8 PG (27.0-31.0) Mean Corpuscular Hemoglobin Concent 32.1 G/DL (32.0-36.0) Red Cell Distribution Width 16.0 % (11.6-14.8) H Platelet Count 124 K/UL (150-450) L Mean Platelet Volume 7.4 FL (6.5-10.1) Neutrophils (%) (Auto) 50.9 % (45.0-75.0) Lymphocytes (%) (Auto) 30.3 % (20.0-45.0) Monocytes (%) (Auto) 14.3 % (1.0-10.0) H Eosinophils (%) (Auto) 3.8 % (0.0-3.0) H Basophils (%) (Auto) 0.7 % (0.0-2.0) Prothrombin Time 28.8 SEC (9.30-11.50) H Prothromb Time International Ratio 2.9 (0.9-1.1) H Sodium Level 142 MMOL/L (136-145) Potassium Level 4.7 MMOL/L (3.5-5.1) Chloride Level 110 MMOL/L (98-107) H Carbon Dioxide Level 22 MMOL/L (21-32) Anion Gap 10 mmol/L (5-15) Blood Urea Nitrogen 32 mg/dL (7-18) H Creatinine 2.3 MG/DL (0.55-1.30) H Estimat Glomerular Filtration Rate mL/min (>60) Glucose Level 97 MG/DL (74-106) Uric Acid 8.1 MG/DL (2.6-7.2) H Calcium Level 8.9 MG/DL (8.5-10.1) Phosphorus Level 3.6 MG/DL (2.5-4.9) Magnesium Level 1.8 MG/DL (1.8-2.4) Iron Level 48 ug/dL (50-175) L Total Iron Binding Capacity 198 ug/dL (250-450) L Percent Iron Saturation 24 % (15-50) Unsaturated Iron Binding 150 ug/dL (112-346) Ferritin 146 NG/ML (8-388) Total Bilirubin 0.6 MG/DL (0.2-1.0) Gamma Glutamyl Transpeptidase 118 U/L (5-85) H Aspartate Amino Transf (AST/SGOT) 18 U/L (15-37) Alanine Aminotransferase (ALT/SGPT) 17 U/L (12-78) Alkaline Phosphatase 69 U/L (46-116) Total Creatine Kinase 125 U/L (26-308) Troponin I 0.017 ng/mL (0.000-0.056) Pro-B-Type Natriuretic Peptide 7976 pg/mL (0-125) H Total Protein 7.8 G/DL (6.4-8.2) Albumin 3.1 G/DL (3.4-5.0) L Globulin 4.7 g/dL Albumin/Globulin Ratio 0.7 (1.0-2.7) L Triglycerides Level 44 MG/DL (30-150) Cholesterol Level 153 MG/DL (< 200) LDL Cholesterol 95 mg/dL (<100) HDL Cholesterol 49 MG/DL (40-60) Cholesterol/HDL Ratio 3.1 (3.3-4.4) L Vitamin B12 Level 597 PG/ML (193-986) Folate 6.1 NG/ML (8.6-58.9) L Height (Feet): 6 Height (Inches): 0.00 Weight (Pounds): 220 Medications Current Medications Medications (Trade) Dose Ordered Sig/Con Route PRN Reason Start Time Stop Time Status Last Admin Dose Admin Acetaminophen (Tylenol) 650 mg Q4H PRN ORAL Mild Pain (Pain Scale 1-3) 12/03/17 23:00 01/02/18 22:59 Albuterol/ Ipratropium (Albuterol/ Ipratropium) 3 ml Q4H PRN HHN Shortness of Breath 12/04/17 17:30 12/09/17 17:29 Albuterol/ Ipratropium (Albuterol/ Ipratropium) 3 ml THREE TIMES A DAY PRN HHN Shortness of Breath 12/03/17 23:00 12/08/17 22:59 Budesonide (Pulmicort) 0.25 mg EVERY 12 HOURS HHN 12/04/17 09:00 01/03/18 08:59 12/05/17 09:37 Dextrose (Dextrose 50%) 25 ml STAT PRN IV Hypoglycemia 12/03/17 23:00 01/02/18 22:59 Dextrose (Dextrose 50%) 50 ml STAT PRN IV Hypoglycemia 12/03/17 23:00 01/02/18 22:59 Diltiazem HCl (Cardizem CD) 240 mg DAILY ORAL 12/04/17 09:00 01/03/18 08:59 12/05/17 09:13 Divalproex Sodium (Depakote ER) 250 mg EVERY 12 HOURS ORAL 9/9/18 09:00 01/03/18 08:59 12/05/17 09:13 Docusate Sodium (Colace) 100 mg TID ORAL 12/04/17 18:00 01/03/18 08:59 12/05/17 09:13 Famotidine (Pepcid) 20 mg BID ORAL 12/04/17 09:00 01/03/18 08:59 12/05/17 09:13 Furosemide (Lasix) 40 mg DAILY IV 12/04/17 13:41 01/03/18 13:40 12/05/17 09:13 Guaifenesin (Robitussin) 200 mg Q6H PRN PO cough & congestion 12/04/17 01:30 01/03/18 01:29 12/04/17 15:02 Hydralazine HCl (Apresoline) 25 mg Q8HR ORAL 12/04/17 06:00 01/03/18 05:59 12/05/17 05:41 Isosorbide Dinitrate (Isordil) 10 mg Q8HR ORAL 12/04/17 06:00 01/03/18 05:59 12/05/17 05:41 Levetiracetam (Keppra) 500 mg Q12HR ORAL 12/04/17 09:00 01/03/18 08:59 12/05/17 09:12 Levothyroxine Sodium (Synthroid) 100 mcg DAILY@0630 ORAL 12/06/17 06:30 01/05/18 06:29 Metoprolol Tartrate (Lopressor) 50 mg Q8HR ORAL 12/04/17 06:00 01/03/18 05:59 12/05/17 05:41 Piperacillin Sod/ Tazobactam Sod 3.375 gm/Dextrose 110 ml @ 27.5 mls/hr EVERY 8 HOURS IVPB 12/04/17 14:00 12/09/17 13:59 12/05/17 05:42 Tamsulosin HCl (Flomax) 0.4 mg BID ORAL 12/04/17 18:00 01/03/18 20:59 12/05/17 09:13 Warfarin Sodium (Coumadin per pharmacy) 1 ea DAILY PRN MISC Per rx protocol 12/03/17 23:00 01/02/18 22:59 Warfarin Sodium (Coumadin) 5 mg COUMADIN ONCE ORAL 12/05/17 17:00 12/05/17 17:01 Zolpidem Tartrate (Ambien) 5 mg DAILYPRN PRN ORAL Insomnia 12/03/17 23:00 12/10/17 22:59 Assessment/Plan Status: unchanged Assessment/Plan Encephalopathy due to C Depakote 250mg bid Valproic Acid level Rufus Velasquez MD Dec 05, 2017 10:32
--- NOTE | 2017-12-05 10:36 | General Progress Note ---
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 Depakote 250mg bid provide ro/st Subjective Date patient seen: Dec 05, 2017 Neurologic/Psychiatric: Reports: anxiety, depressed Allergies: Coded Allergies: MARYANA INHIBITORS (Unverified Allergy, Unknown, 01/31/14) ARB-ANGIOTENSIN RECEPTOR ANTAGONIST (Unverified Allergy, Unknown, 01/31/14) Objective Last 24 Hour Vital Signs Date Time Temp Pulse Resp B/P (MAP) Pulse Ox O2 Delivery O2 Flow Rate FiO2 12/05/17 09:47 125 20 99 Nasal Cannula 3.0 32 12/05/17 09:44 126 18 Nasal Cannula 4.0 32 12/05/17 09:38 126 18 96 Nasal Cannula 3.0 32 12/05/17 09:13 125 136/75 12/05/17 08:00 97.0 125 20 136/75 (95) 98 97.0 12/05/17 05:41 123 134/100 12/05/17 05:41 134/100 12/05/17 05:41 134/100 12/05/17 04:00 122 12/05/17 04:00 98.0 121 19 141/99 (113) 95 98.0 12/05/17 00:00 97.9 98 18 115/76 (89) 96 97.9 12/05/17 00:00 98 12/04/17 21:32 130/96 12/04/17 21:31 107 130/96 12/04/17 21:31 130/96 12/04/17 21:00 Nasal Cannula 2.0 12/04/17 20:00 98.1 107 19 130/96 (107) 99 98.1 12/04/17 20:00 124 12/04/17 16:00 123 12/04/17 16:00 97.2 102 18 129/85 (100) 97.2 12/04/17 14:46 102 133/77 12/04/17 14:46 133/77 12/04/17 14:46 133/77 12/04/17 12:00 97.7 102 18 133/77 (95) 96 97.7 12/04/17 12:00 107 Intake and Output 12/04/17 12/05/17 19:00 07:00 Intake Total 360 ml 112 ml Output Total 400 ml 600 ml Balance -40 ml -488 ml Intake Oral 360 ml IV Total 112 ml Output Urine Total 400 ml 600 ml # Bowel Movements 1 Laboratory Tests 12/05/17 07:40: White Blood Count 4.4L, Red Blood Count 3.56L, Hemoglobin 10.3L, Hematocrit 31.9L, Mean Corpuscular Volume 90, Mean Corpuscular Hemoglobin 28.8, Mean Corpuscular Hemoglobin Concent 32.1, Red Cell Distribution Width 16.0H, Platelet Count 124L, Mean Platelet Volume 7.4, Neutrophils (%) (Auto) 50.9, Lymphocytes (%) (Auto) 30.3, Monocytes (%) (Auto) 14.3H, Eosinophils (%) (Auto) 3.8H, Basophils (%) (Auto) 0.7, Prothrombin Time 28.8H, Prothromb Time International Ratio 2.9H, Sodium Level 142, Potassium Level 4.7, Chloride Level 110H, Carbon Dioxide Level 22, Anion Gap 10, Blood Urea Nitrogen 32H, Creatinine 2.3H, Estimat Glomerular Filtration Rate , Glucose Level 97, Uric Acid 8.1H, Calcium Level 8.9, Phosphorus Level 3.6, Magnesium Level 1.8, Iron Level 48L, Total Iron Binding Capacity 198L, Percent Iron Saturation 24, Unsaturated Iron Binding 150, Ferritin 146, Total Bilirubin 0.6, Gamma Glutamyl Transpeptidase 118H, Aspartate Amino Transf (AST/SGOT) 18, Alanine Aminotransferase (ALT/SGPT) 17, Alkaline Phosphatase 69, Total Creatine Kinase 125, Troponin I 0.017, Pro-B-Type Natriuretic Peptide 7976H, Total Protein 7.8, Albumin 3.1L, Globulin 4.7, Albumin/Globulin Ratio 0.7L, Triglycerides Level 44 , Cholesterol Level 153, LDL Cholesterol 95, HDL Cholesterol 49, Cholesterol/ HDL Ratio 3.1L, Vitamin B12 Level 597, Folate 6.1L Height (Feet): 6 Height (Inches): 0.00 Weight (Pounds): 220 General Appearance: no apparent distress, alert, confused Rufus Velasquez MD Dec 05, 2017 10:36
[2017-12-05 12:00] VITALS: BP 113/77
--- NOTE | 2017-12-05 13:30 | Consultation ---
DATE OF CONSULTATION: 12/04/2017 NOTE: INCOMPLETE DICTATION CARDIOLOGY CONSULTATION CONSULTING PHYSICIAN: Tj Crespo M.D. REFERRING PHYSICIAN: Ondina Geiger M.D. REASON FOR CONSULTATION: Management of atrial fibrillation. HISTORY OF PRESENT ILLNESS: The patient is a very unfortunate 82-year-old gentleman, who presents today. [facility] for evaluation and management of chest congestion, shortness of breath, and productive cough. Apparently in the senior living, he was SOB and required oxygen. Also, a nurse at the facility had reported facial swelling over the right side. The patient is not capable of providing any history given history of prior stroke and dysphasia. The patient was admitted to telemetry unit for further evaluation and management of atrial fibrillation as well as possible acute congestive heart failure. Upon initial arrival to the hospital, initial blood pressure was 117/73 and heart rate of 100. A 12-lead electrocardiogram was significant for atrial fibrillation with rapid ventricular response with no acute ST and T-wave abnormalities. Initial troponin I level was 0.08 and proBNP was 5736. PAST MEDICAL HISTORY: Includes history of VRE, history of MRSA, history of hypothyroidism, history of COPD, history of hypertension, history of atrial fibrillation, on Coumadin therapy, history of encephalopathy, history of CVA with right-sided hemiplegia, history of dementia, history of seizures, and history of chronic kidney disease. ALLERGIES: To MARYANA inhibitors as well as angiotensin-receptor blockers. PAST SURGICAL HISTORY: None. REVIEW OF SYSTEMS: A 12-system review was as follows.HEENT: Denies any headaches, diplopia, or blurred vision. CONSTITUTIONAL: Denies any fever, chills, night sweats, or weight loss. CARDIOVASCULAR: Denies any chest pain. He had subjective complaints of shortness of breath, but no PND, orthopnea, or leg swelling. No palpitation or syncope. PULMONARY: Productive cough plus shortness of breath, but no hemoptysis. GASTROINTESTINAL: Denies any nausea, vomiting, diarrhea, constipation, abdominal pain, or GI bleed. GENITOURINARY: Denies any hematuria, dysuria, or incontinence. NEUROLOGIC: Right-sided weakness with altered speech due to prior stroke. MEDICATIONS: List of medications at the nursing facility includes 325 q.4 h. p.r.n. pain and temperature, albuterol 3 mL inhaler q.4 h. p.r.n. shortness of breath, budesonide 2.25 g q.12 hours, digoxin 125 mcg p.o. daily, diltiazem 240 mg p.o. daily, Depakote 250 mg q.12 hours, Colace 100 mg three times a day, 10 mL q.6 hours p.r.n. cough, hydralazine 25 mg q.8 hours, isosorbide 10 mg q.8 hours, Keppra 500 mg 3 tablets q.12 hours, levothyroxine 75 mcg p.o. daily, loratadine 10 mg p.o. daily, metoprolol 50 mg q.8 hours, Artificial Tears Op/polyvinyl alcohol 15 mL every six hours as needed dry eye, and tamsulosin 0.4 mg. SOCIAL HISTORY: Denies any tobacco, alcohol, or illicit drug use. PHYSICAL EXAMINATION: VITAL SIGNS: Blood pressure 117/72, pulse rate of 100, respirations of 20, O2 saturation 97% on nasal cannula, temperature 97.7 degrees Fahrenheit. GENERAL: The patient is a very unfortunate 82-year-old gentleman who is awake and alert, somewhat nonverbal due to prior aphasia due to stroke. HEENT: Atraumatic and normocephalic. Anicteric. Pupils are equal, round, and reactive to light and accommodation. Extraocular muscles intact. NECK: JVP less than 5 cm. No carotid bruit. Carotid upstrokes 2+ bilaterally. CARDIOVASCULAR SYSTEM: Normal S1, S2. Irregularly irregular rhythm. No murmurs, gallops, or rubs. PMI is at fourth intercostal space at midclavicular line. LUNGS: Clear to auscultation bilaterally. ABDOMEN: Soft, nontender, and nondistended. No hepatosplenomegaly. Positive bowel sounds. EXTREMITIES: No evidence of edema, clubbing, or cyanosis. LABORATORY FINDINGS: WBC 4.1, hemoglobin 9.1, hematocrit 29.9, platelet count is 122,000. Sodium is 141, potassium is 4.7, chloride 111, bicarbonate 22, BUN of 29, creatinine 2.1, glucose 124, calcium is 8.7. Troponin I was negative. BNP was 5736. TSH was 6.38. INR is 3.1. Toxicology reveals digoxin level of less than 0.2. Chest x-ray was significant for hypoventilatory lungs with nonspecific basilar opacities, may represent atelectasis. ASSESSMENT AND PLAN: The patient is a very pleasant 82-year-old gentleman seen in Cardiology consultation at the request of Dr. Geiger. 1. Most likely permanent atrial fibrillation with slightly rapid ventricular response. I would like to optimize beta-matthew, calcium channel blockers and perhaps digoxin to keep the heart rate in the range of 60-70. Will try to keep INR within the therapeutic range of 2-3. 2. Most likely acute on chronic heart failure with preserved EF due to atrial fibrillation, continue diuretics. 3. CVA 4. TEJA on CKD 5. Anemia 6. Moderate pulmonary HTN. Thank you Dr. Geiger for the courtesy of this consultation. Tj Crespo M.D. DR: Taj JOB#: [id number] CC: HÉCTOR
--- NOTE | 2017-12-05 15:06 | Infectious Diseases Prog Note ---
Assessment/Plan Problems: (1) HCAP (healthcare-associated pneumonia) Assessment & Plan: possible aspiration with basal infiltrated , continue zosyn empirically pending sputum culture, and swallow eval , monitor CXR (2) Acute on chronic renal insufficiency Assessment & Plan: avoid nephrotoxics, monitor renal function , renal consult (3) At high risk for aspiration Assessment & Plan: aspiration precaution, keep HOB > 30 Degree all the time (4) Acute CHF Assessment & Plan: with dyspnea continue diuresis , monitor daily weight , fluids restriction (5) COPD (chronic obstructive pulmonary disease) Assessment & Plan: with acute exacerbation due to the above, continue antibiotics and nebulizers Subjective Constitutional: Reports: no symptoms HEENT: Reports: no symptoms Respiratory: Reports: shortness of breath, productive cough Breasts: Reports: no symptoms Cardiovascular: Reports: no symptoms Gastrointestinal/Abdominal: Reports: no symptoms Genitourinary: Reports: no symptoms Neurologic: Reports: no symptoms Psychiatric: Reports: no symptoms Skin: Reports: no symptoms Endocrine: Reports: no symptoms Hematologic: Reports: no symptoms Musculoskeletal: Reports: no symptoms Allergies: Coded Allergies: MARYANA INHIBITORS (Unverified Allergy, Unknown, 01/31/14) ARB-ANGIOTENSIN RECEPTOR ANTAGONIST (Unverified Allergy, Unknown, 01/31/14) Subjective feels better with less cough and phlegm Objective Vital Signs Last 24 Hour Vital Signs Date Time Temp Pulse Resp B/P (MAP) Pulse Ox O2 Delivery O2 Flow Rate FiO2 12/05/17 13:24 128 113/77 12/05/17 13:24 113/77 12/05/17 13:24 113/77 12/05/17 12:00 97.7 128 20 113/77 (89) 99 97.7 12/05/17 12:00 128 12/05/17 09:47 125 20 99 Nasal Cannula 3.0 32 12/05/17 09:44 126 18 Nasal Cannula 4.0 32 12/05/17 09:38 126 18 96 Nasal Cannula 3.0 32 12/05/17 09:13 125 136/75 12/05/17 09:00 Nasal Cannula 2.0 12/05/17 08:00 124 12/05/17 08:00 97.0 125 20 136/75 (95) 98 97.0 12/05/17 05:41 123 134/100 12/05/17 05:41 134/100 12/05/17 05:41 134/100 12/05/17 04:00 122 12/05/17 04:00 98.0 121 19 141/99 (113) 95 98.0 12/05/17 00:00 97.9 98 18 115/76 (89) 96 97.9 12/05/17 00:00 98 12/04/17 21:32 130/96 12/04/17 21:31 107 130/96 12/04/17 21:31 130/96 12/04/17 21:00 Nasal Cannula 2.0 12/04/17 20:00 98.1 107 19 130/96 (107) 99 98.1 12/04/17 20:00 124 12/04/17 16:00 123 12/04/17 16:00 97.2 102 18 129/85 (100) 97.2 Height (Feet): 6 Height (Inches): 0.00 Weight (Pounds): 220 General Appearance: WD/WN, no acute distress HEENT: normocephalic, atraumatic, anicteric, PERRL Respiratory/Chest: chest wall non-tender, no respiratory distress, no accessory muscle use, decreased breath sounds, crackles/rales, expiratory wheezing Cardiovascular: normal peripheral pulses, normal rate, regular rhythm, no gallop/murmur, no JVD Abdomen: normal bowel sounds, soft, non tender, no organomegaly, non distended , no mass, no scars Extremities: no cyanosis, no clubbing Skin: no rash, no lesions, no ulcers Neurologic/Psychiatric: alert, oriented x 3, responsive Lymphatic: no neck adenopathy, no groin adenopathy Musculoskeletal: normal muscle bulk, no effusion Microbiology Date/Time Source Procedure Growth Status 12/03/17 20:22 Blood Blood Culture - Preliminary NO GROWTH AFTER 24 HOURS Resulted 12/03/17 20:07 Blood Blood Culture - Preliminary NO GROWTH AFTER 24 HOURS Resulted Laboratory Tests Test 12/05/17 07:40 White Blood Count 4.4 K/UL (4.8-10.8) L Red Blood Count 3.56 M/UL (4.70-6.10) L Hemoglobin 10.3 G/DL (14.2-18.0) L Hematocrit 31.9 % (42.0-52.0) L Mean Corpuscular Volume 90 FL (80-99) Mean Corpuscular Hemoglobin 28.8 PG (27.0-31.0) Mean Corpuscular Hemoglobin Concent 32.1 G/DL (32.0-36.0) Red Cell Distribution Width 16.0 % (11.6-14.8) H Platelet Count 124 K/UL (150-450) L Mean Platelet Volume 7.4 FL (6.5-10.1) Neutrophils (%) (Auto) 50.9 % (45.0-75.0) Lymphocytes (%) (Auto) 30.3 % (20.0-45.0) Monocytes (%) (Auto) 14.3 % (1.0-10.0) H Eosinophils (%) (Auto) 3.8 % (0.0-3.0) H Basophils (%) (Auto) 0.7 % (0.0-2.0) Prothrombin Time 28.8 SEC (9.30-11.50) H Prothromb Time International Ratio 2.9 (0.9-1.1) H Sodium Level 142 MMOL/L (136-145) Potassium Level 4.7 MMOL/L (3.5-5.1) Chloride Level 110 MMOL/L (98-107) H Carbon Dioxide Level 22 MMOL/L (21-32) Anion Gap 10 mmol/L (5-15) Blood Urea Nitrogen 32 mg/dL (7-18) H Creatinine 2.3 MG/DL (0.55-1.30) H Estimat Glomerular Filtration Rate mL/min (>60) Glucose Level 97 MG/DL (74-106) Uric Acid 8.1 MG/DL (2.6-7.2) H Calcium Level 8.9 MG/DL (8.5-10.1) Phosphorus Level 3.6 MG/DL (2.5-4.9) Magnesium Level 1.8 MG/DL (1.8-2.4) Iron Level 48 ug/dL (50-175) L Total Iron Binding Capacity 198 ug/dL (250-450) L Percent Iron Saturation 24 % (15-50) Unsaturated Iron Binding 150 ug/dL (112-346) Ferritin 146 NG/ML (8-388) Total Bilirubin 0.6 MG/DL (0.2-1.0) Gamma Glutamyl Transpeptidase 118 U/L (5-85) H Aspartate Amino Transf (AST/SGOT) 18 U/L (15-37) Alanine Aminotransferase (ALT/SGPT) 17 U/L (12-78) Alkaline Phosphatase 69 U/L (46-116) Total Creatine Kinase 125 U/L (26-308) Troponin I 0.017 ng/mL (0.000-0.056) Pro-B-Type Natriuretic Peptide 7976 pg/mL (0-125) H Total Protein 7.8 G/DL (6.4-8.2) Albumin 3.1 G/DL (3.4-5.0) L Globulin 4.7 g/dL Albumin/Globulin Ratio 0.7 (1.0-2.7) L Triglycerides Level 44 MG/DL (30-150) Cholesterol Level 153 MG/DL (< 200) LDL Cholesterol 95 mg/dL (<100) HDL Cholesterol 49 MG/DL (40-60) Cholesterol/HDL Ratio 3.1 (3.3-4.4) L Vitamin B12 Level 597 PG/ML (193-986) Folate 6.1 NG/ML (8.6-58.9) L Valproic Acid (Depakene) Level 23 MCG/ML (50-100) L Current Medications Medications (Trade) Dose Ordered Sig/Con Route PRN Reason Start Time Stop Time Status Last Admin Dose Admin Acetaminophen (Tylenol) 650 mg Q4H PRN ORAL Mild Pain (Pain Scale 1-3) 12/03/17 23:00 01/02/18 22:59 Albuterol/ Ipratropium (Albuterol/ Ipratropium) 3 ml Q4H PRN HHN Shortness of Breath 12/04/17 17:30 12/09/17 17:29 Albuterol/ Ipratropium (Albuterol/ Ipratropium) 3 ml THREE TIMES A DAY PRN HHN Shortness of Breath 12/03/17 23:00 12/08/17 22:59 Budesonide (Pulmicort) 0.25 mg EVERY 12 HOURS HHN 12/04/17 09:00 01/03/18 08:59 12/05/17 09:37 Dextrose (Dextrose 50%) 25 ml STAT PRN IV Hypoglycemia 12/03/17 23:00 01/02/18 22:59 Dextrose (Dextrose 50%) 50 ml STAT PRN IV Hypoglycemia 12/03/17 23:00 01/02/18 22:59 Diltiazem HCl (Cardizem CD) 240 mg DAILY ORAL 12/04/17 09:00 01/03/18 08:59 12/05/17 09:13 Divalproex Sodium (Depakote ER) 250 mg EVERY 12 HOURS ORAL 12/04/17 09:00 01/03/18 08:59 12/05/17 09:13 Docusate Sodium (Colace) 100 mg TID ORAL 12/04/17 18:00 01/03/18 08:59 12/05/17 13:24 Famotidine (Pepcid) 20 mg BID ORAL 12/04/17 09:00 01/03/18 08:59 12/05/17 09:13 Furosemide (Lasix) 40 mg DAILY IV 12/04/17 13:41 01/03/18 13:40 12/05/17 09:13 Guaifenesin (Robitussin) 200 mg Q6H PRN PO cough & congestion 12/04/17 01:30 01/03/18 01:29 12/04/17 15:02 Hydralazine HCl (Apresoline) 25 mg Q8HR ORAL 12/04/17 06:00 01/03/18 05:59 12/05/17 13:24 Isosorbide Dinitrate (Isordil) 10 mg Q8HR ORAL 12/04/17 06:00 01/03/18 05:59 12/05/17 13:24 Levetiracetam (Keppra) 500 mg Q12HR ORAL 12/04/17 09:00 01/03/18 08:59 12/05/17 09:12 Levothyroxine Sodium (Synthroid) 100 mcg DAILY@0630 ORAL 12/06/17 06:30 01/05/18 06:29 Metoprolol Tartrate (Lopressor) 50 mg Q8HR ORAL 12/04/17 06:00 01/03/18 05:59 12/05/17 13:24 Piperacillin Sod/ Tazobactam Sod 3.375 gm/Dextrose 110 ml @ 27.5 mls/hr EVERY 8 HOURS IVPB 12/04/17 14:00 12/09/17 13:59 12/05/17 14:31 Tamsulosin HCl (Flomax) 0.4 mg BID ORAL 12/04/17 18:00 01/03/18 20:59 12/05/17 09:13 Warfarin Sodium (Coumadin per pharmacy) 1 ea DAILY PRN MISC Per rx protocol 12/03/17 23:00 01/02/18 22:59 Warfarin Sodium (Coumadin) 5 mg COUMADIN ONCE ORAL 12/05/17 17:00 12/05/17 17:01 Zolpidem Tartrate (Ambien) 5 mg DAILYPRN PRN ORAL Insomnia 12/03/17 23:00 12/10/17 22:59 Lyssa Strong M.D. Dec 05, 2017 15:06
[2017-12-05 16:00] VITALS: BP 108/67
[2017-12-05] MEDS ORDERED: Warfarin Sodium 5mg ORAL ONE (17:00)
[2017-12-05 20:00] VITALS: BP 97/67
[2017-12-05] MEDS ORDERED: NS 250 ML IVPB ONE (23:00)
--- NOTE | 2017-12-05 23:57 | Cardiology Progress Note ---
Assessment/Plan Assessment/Plan 1. Permanent atrial fibrillation with RVR, continue metoprolol and diltiazem, continue warfarin, INR within the therapeutic level, echo shows borderline LVEF likely due to atrial fibrillation. 2. Possible chronic HFpEF due to atrial fibrillation. 3. Hypotension, DC hydralazine and furosemide. 4. Hypothyroidism 5. Anemia 6. Hx of CVA Subjective Subjective Atrial fibrillation with rapid ventricular response at 128. Objective Last 24 Hour Vital Signs Date Time Temp Pulse Resp B/P (MAP) Pulse Ox O2 Delivery O2 Flow Rate FiO2 12/05/17 22:00 129 97/67 12/05/17 21:27 129 20 100 Room Air 12/05/17 21:21 127 18 97 Room Air 12/05/17 21:00 Nasal Cannula 2.0 12/05/17 20:00 97.5 129 24 97/67 (77) 98 97.5 12/05/17 20:00 130 12/05/17 16:00 127 12/05/17 16:00 98.2 127 24 108/67 (81) 98 98.2 12/05/17 13:24 128 113/77 12/05/17 13:24 113/77 12/05/17 13:24 113/77 12/05/17 12:00 97.7 128 20 113/77 (89) 99 97.7 12/05/17 12:00 128 12/05/17 09:47 125 20 99 Nasal Cannula 3.0 32 12/05/17 09:44 126 18 Nasal Cannula 4.0 32 12/05/17 09:38 126 18 96 Nasal Cannula 3.0 32 12/05/17 09:13 125 136/75 12/05/17 09:00 Nasal Cannula 2.0 12/05/17 08:00 124 12/05/17 08:00 97.0 125 20 136/75 (95) 98 97.0 12/05/17 05:41 123 134/100 12/05/17 05:41 134/100 12/05/17 05:41 134/100 12/05/17 04:00 122 12/05/17 04:00 98.0 121 19 141/99 (113) 95 98.0 12/05/17 00:00 97.9 98 18 115/76 (89) 96 97.9 12/05/17 00:00 98 Intake and Output 12/04/17 12/05/17 19:00 07:00 Intake Total 360 ml 112 ml Output Total 400 ml 600 ml Balance -40 ml -488 ml Intake Oral 360 ml IV Total 112 ml Output Urine Total 400 ml 600 ml # Bowel Movements 1 2D Echo: EF 50%, mod LVH, RVSp 53 mmHg, Grade I LVDD, Mod GA/MR, Small Nellie Eff. Laboratory Tests Test 12/05/17 07:40 White Blood Count 4.4 K/UL (4.8-10.8) L Red Blood Count 3.56 M/UL (4.70-6.10) L Hemoglobin 10.3 G/DL (14.2-18.0) L Hematocrit 31.9 % (42.0-52.0) L Mean Corpuscular Volume 90 FL (80-99) Mean Corpuscular Hemoglobin 28.8 PG (27.0-31.0) Mean Corpuscular Hemoglobin Concent 32.1 G/DL (32.0-36.0) Red Cell Distribution Width 16.0 % (11.6-14.8) H Platelet Count 124 K/UL (150-450) L Mean Platelet Volume 7.4 FL (6.5-10.1) Neutrophils (%) (Auto) 50.9 % (45.0-75.0) Lymphocytes (%) (Auto) 30.3 % (20.0-45.0) Monocytes (%) (Auto) 14.3 % (1.0-10.0) H Eosinophils (%) (Auto) 3.8 % (0.0-3.0) H Basophils (%) (Auto) 0.7 % (0.0-2.0) Prothrombin Time 28.8 SEC (9.30-11.50) H Prothromb Time International Ratio 2.9 (0.9-1.1) H Sodium Level 142 MMOL/L (136-145) Potassium Level 4.7 MMOL/L (3.5-5.1) Chloride Level 110 MMOL/L (98-107) H Carbon Dioxide Level 22 MMOL/L (21-32) Anion Gap 10 mmol/L (5-15) Blood Urea Nitrogen 32 mg/dL (7-18) H Creatinine 2.3 MG/DL (0.55-1.30) H Estimat Glomerular Filtration Rate mL/min (>60) Glucose Level 97 MG/DL (74-106) Uric Acid 8.1 MG/DL (2.6-7.2) H Calcium Level 8.9 MG/DL (8.5-10.1) Phosphorus Level 3.6 MG/DL (2.5-4.9) Magnesium Level 1.8 MG/DL (1.8-2.4) Iron Level 48 ug/dL (50-175) L Total Iron Binding Capacity 198 ug/dL (250-450) L Percent Iron Saturation 24 % (15-50) Unsaturated Iron Binding 150 ug/dL (112-346) Ferritin 146 NG/ML (8-388) Total Bilirubin 0.6 MG/DL (0.2-1.0) Gamma Glutamyl Transpeptidase 118 U/L (5-85) H Aspartate Amino Transf (AST/SGOT) 18 U/L (15-37) Alanine Aminotransferase (ALT/SGPT) 17 U/L (12-78) Alkaline Phosphatase 69 U/L (46-116) Total Creatine Kinase 125 U/L (26-308) Troponin I 0.017 ng/mL (0.000-0.056) Pro-B-Type Natriuretic Peptide 7976 pg/mL (0-125) H Total Protein 7.8 G/DL (6.4-8.2) Albumin 3.1 G/DL (3.4-5.0) L Globulin 4.7 g/dL Albumin/Globulin Ratio 0.7 (1.0-2.7) L Triglycerides Level 44 MG/DL (30-150) Cholesterol Level 153 MG/DL (< 200) LDL Cholesterol 95 mg/dL (<100) HDL Cholesterol 49 MG/DL (40-60) Cholesterol/HDL Ratio 3.1 (3.3-4.4) L Vitamin B12 Level 597 PG/ML (193-986) Folate 6.1 NG/ML (8.6-58.9) L Valproic Acid (Depakene) Level 23 MCG/ML (50-100) L Microbiology Date/Time Source Procedure Growth Status 12/03/17 20:22 Blood Blood Culture - Preliminary NO GROWTH AFTER 24 HOURS Resulted 12/03/17 20:07 Blood Blood Culture - Preliminary NO GROWTH AFTER 24 HOURS Resulted Objective HEENT: Atraumatic and normocephalic. Anicteric. Pupils are equal, round, and reactive to light and accommodation. Extraocular muscles intact. NECK: JVP is less than 5 cm. No carotid bruit. Carotid upstrokes 2+ bilaterally. CARDIOVASCULAR SYSTEM: Normal S1, S2. Irregularly irregular rhythm. No murmurs, gallops, or rubs. PMI is at fourth intercostal space at midclavicular line. LUNGS: Clear to auscultation bilaterally. ABDOMEN: Soft, nontender, and nondistended. No hepatosplenomegaly. Positive bowel sounds. EXTREMITIES: No evidence of edema, clubbing, or cyanosis. Tj Crespo MD Dec 05, 2017 23:57
[2017-12-06] VITALS: BP 118/83
[2017-12-06 04:00] VITALS: BP 113/92
[2017-12-06] MEDS: Piperacillin/Tazobactam 3.375 GM in D5W 110 ML IVPB SCH ×3 (06:09→21:18)
[2017-12-06] MEDS: Metoprolol Tartrate 50mg tab ORAL SCH ×3 (06:12→21:18)
[2017-12-06 08:00] VITALS: BP 118/78
[2017-12-06] MEDS: Depakote ER 250mg tab ORAL SCH ×2 (08:12→21:18)
[2017-12-06] MEDS: Tamsulosin 0.4mg cap ORAL SCH ×2 (08:13→18:02)
[2017-12-06] MEDS: Docusate 100mg cap ORAL SCH ×3 (08:13→18:02)
[2017-12-06] MEDS: dilTIAZem HCl CD 240mg cap ORAL SCH (08:13)
[2017-12-06 08:18] LABS: INR 3.2 (0.9-1.1)
[2017-12-06] MEDS: Budesonide HHN 0.25mg/2ml ud HHN SCH ×2 (09:00→22:54)
--- NOTE | 2017-12-06 09:16 | Pulmonology Progress Note ---
Assessment/Plan Assessment/Plan ASSESSMENT: The patient is an 82-year-old male with a half-way resident with a history of chronic obstructive pulmonary disease, congestive heart failure, chronic kidney disease, dementia, prior cerebrovascular accident, and chronic atrial fibrillation, presenting with shortness of breath likely secondary to decompensated heart failure. He is also on Zosyn for possible aspiration and healthcare associated pneumonia. PROBLEM LIST: 1. Acute hypoxemic respiratory failure likely secondary to decompensated heart failure. 2. Bibasilar opacities, likely edema, possible aspiration. 3. Chronic obstructive pulmonary disease. 4. Congestive heart failure with acute decompensated heart failure. 5. Chronic atrial fibrillation. 6. Dementia. 7. Prior cerebrovascular accident. 8. Chronic kidney disease. 9. [facility] resident. TREATMENT PLAN: 1. Optimize pulmonary hygiene/mobilize as tolerated. 2. PRN O2 3. D/C DUOnebs, change to ATROVENT only 4. Continue b.i.d. budesonide. 5. Continue Zosyn per ID. 6. Monitor volumes and renal function, diuretics held 7. Aspiration precautions. 8. Diet per WAITER/WAITRESS CAPTAIN, VSS 9. DVT PROPHYLAXIS: The patient is on anticoagulation. 10. The patient is Full Code, continue to discuss goals of care. Subjective Allergies: Coded Allergies: MARYANA INHIBITORS (Unverified Allergy, Unknown, 01/31/14) ARB-ANGIOTENSIN RECEPTOR ANTAGONIST (Unverified Allergy, Unknown, 01/31/14) Subjective AFcRVR, stable on RA Denies SOB, no cough, no wheezing, no Cp Objective Last 24 Hour Vital Signs Date Time Temp Pulse Resp B/P (MAP) Pulse Ox O2 Delivery O2 Flow Rate FiO2 12/06/17 09:01 128 21 97 Room Air 21 12/06/17 08:13 130 118/78 12/06/17 08:00 97.5 130 20 118/78 (91) 96 97.5 12/06/17 07:37 Room Air 12/06/17 07:37 Room Air 12/06/17 06:12 131 113/92 12/06/17 06:11 113/92 12/06/17 04:00 131 12/06/17 04:00 97.0 130 20 113/92 (99) 93 97.0 12/06/17 00:00 130 12/06/17 00:00 97.3 130 22 118/83 (95) 93 97.3 12/05/17 22:00 129 97/67 12/05/17 21:27 129 20 100 Room Air 12/05/17 21:21 127 18 97 Room Air 12/05/17 21:00 Nasal Cannula 2.0 12/05/17 20:00 97.5 129 24 97/67 (77) 98 97.5 12/05/17 20:00 130 12/05/17 16:00 127 12/05/17 16:00 98.2 127 24 108/67 (81) 98 98.2 12/05/17 13:24 128 113/77 12/05/17 13:24 113/77 12/05/17 13:24 113/77 12/05/17 12:00 97.7 128 20 113/77 (89) 99 97.7 12/05/17 12:00 128 12/05/17 09:47 125 20 99 Nasal Cannula 3.0 32 12/05/17 09:44 126 18 Nasal Cannula 4.0 32 12/05/17 09:38 126 18 96 Nasal Cannula 3.0 32 Intake and Output 12/05/17 12/06/17 19:00 07:00 Intake Total 455 ml Output Total 2000 ml 600 ml Balance -1545 ml -600 ml Intake Oral 455 ml Output Urine Total 2000 ml 600 ml General Appearance: WD/WN, no acute distress HEENT: normocephalic, atraumatic, anicteric, mucous membranes moist Respiratory/Chest: chest wall non-tender, lungs clear, normal breath sounds, no respiratory distress, no accessory muscle use Cardiovascular: irregularly irregular Abdomen: normal bowel sounds, soft, non tender, no organomegaly, non distended , no mass Extremities: no cyanosis, no clubbing, no edema Microbiology Date/Time Source Procedure Growth Status 12/03/17 20:22 Blood Blood Culture - Preliminary NO GROWTH AFTER 48 HOURS Resulted 12/03/17 20:07 Blood Blood Culture - Preliminary NO GROWTH AFTER 48 HOURS Resulted Laboratory Tests 12/06/17 06:20: Prothrombin Time 31.4H, Prothromb Time International Ratio 3.2H Current Medications Medications (Trade) Dose Ordered Sig/Con Route PRN Reason Start Time Stop Time Status Last Admin Dose Admin Acetaminophen (Tylenol) 650 mg Q4H PRN ORAL Mild Pain (Pain Scale 1-3) 12/03/17 23:00 01/02/18 22:59 Albuterol/ Ipratropium (Albuterol/ Ipratropium) 3 ml Q4H PRN HHN Shortness of Breath 12/04/17 17:30 12/09/17 17:29 Albuterol/ Ipratropium (Albuterol/ Ipratropium) 3 ml THREE TIMES A DAY PRN HHN Shortness of Breath 12/03/17 23:00 12/08/17 22:59 Budesonide (Pulmicort) 0.25 mg EVERY 12 HOURS HHN 12/04/17 09:00 01/03/18 08:59 12/06/17 09:00 Dextrose (Dextrose 50%) 25 ml STAT PRN IV Hypoglycemia 12/03/17 23:00 01/02/18 22:59 Dextrose (Dextrose 50%) 50 ml STAT PRN IV Hypoglycemia 12/03/17 23:00 01/02/18 22:59 Diltiazem HCl (Cardizem CD) 240 mg DAILY ORAL 12/04/17 09:00 01/03/18 08:59 12/06/17 08:13 Divalproex Sodium (Depakote ER) 250 mg EVERY 12 HOURS ORAL 12/04/17 09:00 01/03/18 08:59 12/06/17 08:12 Docusate Sodium (Colace) 100 mg TID ORAL 12/04/17 18:00 01/03/18 08:59 12/06/17 08:13 Famotidine (Pepcid) 20 mg BID ORAL 12/04/17 09:00 01/03/18 08:59 12/06/17 08:13 Guaifenesin (Robitussin) 200 mg Q6H PRN PO cough & congestion 12/04/17 01:30 01/03/18 01:29 12/04/17 15:02 Isosorbide Dinitrate (Isordil) 10 mg Q8HR ORAL 12/06/17 06:00 01/03/18 05:59 12/06/17 06:11 Levetiracetam (Keppra) 500 mg Q12HR ORAL 12/04/17 09:00 01/03/18 08:59 12/06/17 08:13 Levothyroxine Sodium (Synthroid) 100 mcg DAILY@0630 ORAL 12/06/17 06:30 01/05/18 06:29 12/06/17 06:12 Metoprolol Tartrate (Lopressor) 50 mg Q8HR ORAL 12/04/17 06:00 01/03/18 05:59 12/06/17 06:12 Piperacillin Sod/ Tazobactam Sod 3.375 gm/Dextrose 110 ml @ 27.5 mls/hr EVERY 8 HOURS IVPB 12/04/17 14:00 12/09/17 13:59 12/06/17 06:09 Tamsulosin HCl (Flomax) 0.4 mg BID ORAL 12/04/17 18:00 01/03/18 20:59 12/06/17 08:13 Warfarin Sodium (Coumadin per pharmacy) 1 ea DAILY PRN MISC Per rx protocol 12/03/17 23:00 01/02/18 22:59 Warfarin Sodium (Coumadin) 3 mg COUMADIN ONCE ORAL 12/06/17 17:00 12/06/17 17:01 Zolpidem Tartrate (Ambien) 5 mg DAILYPRN PRN ORAL Insomnia 12/03/17 23:00 12/10/17 22:59 Luther Carroll MD Dec 06, 2017 09:16
[2017-12-06] MEDS ORDERED: Ipratropium 0.02% Inh Soln 2.5ml UD HHN PRN (10:00)
--- NOTE | 2017-12-06 11:04 | General Progress Note ---
Assessment/Plan Assessment/Plan S: I am doing ok O: appears comfortable. Persistent sob. Dementia, limited source of information PHYSICAL EXAMINATION: HEAD AND NECK: Atraumatic and normocephalic. CHEST: Bronchial BS, No wheezing, HEART: S1 and S2. IRegular rate and rhythm. ABDOMEN: Soft. No organomegaly. MUSCULOSKELETAL: Positive for right hemiplegia at baseline. NEUROLOGY: The patient is awake. right side weakness, alert and oriented x2 at baseline. Meds: reviewed and reconciled including Christinasyn ASSESSMENT AND PLAN: 1. Acute Hypoxemic RF, CHF exacerbation vs Brochitis vs Chemical aspiration 2. Seizures d/o 2. Dementia. 3. Cerebrovascular accident with right hemiplegia. 4. Atrial fibrillation with controlled rate on therapeutic ATC. 5. Congestive heart failure - diastolic with the preserved ejection fraction. 6. Hypothyroidism. 7. Hypertension. 8. Acute on chronic renal failure, 9. Benign prostatic hypertrophy. 10. Gastrointestinal and deep vein thrombosis prophylaxes. PLAN OF CARE: stable basal infiltrates, New asp ? Volume overload? Increased the Levothyroxin. current pulmonary mgt pending Echo Proceed with Video Swallow Subjective Allergies: Coded Allergies: MARYANA INHIBITORS (Unverified Allergy, Unknown, 01/31/14) ARB-ANGIOTENSIN RECEPTOR ANTAGONIST (Unverified Allergy, Unknown, 01/31/14) Objective Last 24 Hour Vital Signs Date Time Temp Pulse Resp B/P (MAP) Pulse Ox O2 Delivery O2 Flow Rate FiO2 12/06/17 09:11 128 20 99 Room Air 12/06/17 09:01 128 21 97 Room Air 21 12/06/17 09:00 Nasal Cannula 2.0 12/06/17 08:13 130 118/78 12/06/17 08:00 97.5 130 20 118/78 (91) 96 97.5 12/06/17 07:37 Room Air 12/06/17 07:37 Room Air 12/06/17 06:12 131 113/92 12/06/17 06:11 113/92 12/06/17 04:00 131 12/06/17 04:00 97.0 130 20 113/92 (99) 93 97.0 12/06/17 00:00 130 12/06/17 00:00 97.3 130 22 118/83 (95) 93 97.3 12/05/17 22:00 129 97/67 12/05/17 21:27 129 20 100 Room Air 12/05/17 21:21 127 18 97 Room Air 12/05/17 21:00 Nasal Cannula 2.0 12/05/17 20:00 97.5 129 24 97/67 (77) 98 97.5 12/05/17 20:00 130 12/05/17 16:00 127 12/05/17 16:00 98.2 127 24 108/67 (81) 98 98.2 12/05/17 13:24 128 113/77 12/05/17 13:24 113/77 12/05/17 13:24 113/77 12/05/17 12:00 97.7 128 20 113/77 (89) 99 97.7 12/05/17 12:00 128 Intake and Output 12/05/17 12/06/17 19:00 07:00 Intake Total 455 ml Output Total 2000 ml 600 ml Balance -1545 ml -600 ml Intake Oral 455 ml Output Urine Total 2000 ml 600 ml Laboratory Tests 12/06/17 06:20: Prothrombin Time 31.4H, Prothromb Time International Ratio 3.2H Height (Feet): 6 Height (Inches): 0.00 Weight (Pounds): 220 Ondina Geiger MD Dec 06, 2017 11:04
--- NOTE | 2017-12-06 11:59 | Diagnostic Imaging Report ---
Indication:Elevated Bun and Creatinine. Technique: Grayscale and duplex Doppler imaging of the kidneys performed. Comparison: None Findings: Urinary bladder has a volume of about 136 cc. Renal cortical echogenicity is within normal limits. There are few cysts present for example on the left side 2.2 cm. Right renal cyst measuring 1 cm noted. Other smaller cysts are present. There is an echogenic focus in the right kidney upper pole without shadowing indeterminate in terms of the the nature of the echogenic focus. A previous ultrasound performed 6 3 Ledy demonstrated good evidence of a stone in the left kidney nonobstructive which is again noted. Additional stones may be present also. Right kidney and left kidney both measure between 10 and 11 cm in length. IVC is grossly unremarkable. IMPRESSION: Nonobstructive stones within the left kidney. Questionable nonobstructive stone in the right kidney. Noncontrast CT May BE of benefit for confirmation. No evidence of obstructive nephropathy. Multiple bilateral renal cysts.
[2017-12-06 12:00] VITALS: BP 109/83
--- NOTE | 2017-12-06 12:22 | Nephrology Progress Note ---
Assessment/Plan Problem List: (1) Acute renal failure (2) Seizure disorder (3) Arrhythmia (4) Afib Assessment Renal failure due to pre renal azotemia due to underlying CHF- Cr 2.1 ? underlying CKD today up to 2.3 Afib Cardiomyopathy Acute CHF others: Acute Asthma/copd exacerbation seizures DM Cerebrovascular accident with right hemiplegia. Congestive heart failure - diastolic with the preserved ejection fraction. Benign prostatic hypertrophy. h/o Pneumonia- SVT , At fib- on anti coag h/o DVT- h/o HypoThyroidism h/o Gout Dementia HTN Plan HR management per [employer] Optimize cardiac and pulmonary status monitor renal parameters- avoid nephrotoxics- flomax adjust bp meds check labs discussed with RN LINDA: Nonobstructive stones within the left kidney. Questionable nonobstructive stone in the right kidney. Noncontrast CT May BE of benefit for confirmation. No evidence of obstructive nephropathy. Multiple bilateral renal cysts. Subjective ROS Limited/Unobtainable: No Constitutional: Reports: malaise Objective Objective Last 24 Hour Vital Signs Date Time Temp Pulse Resp B/P (MAP) Pulse Ox O2 Delivery O2 Flow Rate FiO2 12/06/17 12:00 98.1 131 20 109/83 (92) 98 98.1 12/06/17 09:11 128 20 99 Room Air 12/06/17 09:01 128 21 97 Room Air 21 12/06/17 09:00 Nasal Cannula 2.0 12/06/17 08:13 130 118/78 12/06/17 08:00 129 12/06/17 08:00 97.5 130 20 118/78 (91) 96 97.5 12/06/17 07:37 Room Air 12/06/17 07:37 Room Air 12/06/17 06:12 131 113/92 12/06/17 06:11 113/92 12/06/17 04:00 131 12/06/17 04:00 97.0 130 20 113/92 (99) 93 97.0 12/06/17 00:00 130 12/06/17 00:00 97.3 130 22 118/83 (95) 93 97.3 12/05/17 22:00 129 97/67 12/05/17 21:27 129 20 100 Room Air 12/05/17 21:21 127 18 97 Room Air 9/10/18 21:00 Nasal Cannula 2.0 12/05/17 20:00 97.5 129 24 97/67 (77) 98 97.5 12/05/17 20:00 130 12/05/17 16:00 127 12/05/17 16:00 98.2 127 24 108/67 (81) 98 98.2 12/05/17 13:24 128 113/77 12/05/17 13:24 113/77 12/05/17 13:24 113/77 Intake and Output 12/05/17 12/06/17 19:00 07:00 Intake Total 455 ml Output Total 2000 ml 600 ml Balance -1545 ml -600 ml Intake Oral 455 ml Output Urine Total 2000 ml 600 ml Laboratory Tests 12/06/17 06:20: Prothrombin Time 31.4H, Prothromb Time International Ratio 3.2H Height (Feet): 6 Height (Inches): 0.00 Weight (Pounds): 220 General Appearance: no apparent distress Cardiovascular: tachycardia, arrhythmia Respiratory/Chest: decreased breath sounds Abdomen: distended Isaias Noe MD Dec 06, 2017 12:22
[2017-12-06] MEDS: Ipratropium 0.02% Inh Soln 2.5ml UD HHN SCH ×2 (13:00→19:36)
--- NOTE | 2017-12-06 15:14 | Infectious Diseases Prog Note ---
Assessment/Plan Problems: (1) HCAP (healthcare-associated pneumonia) Assessment & Plan: possible aspiration with basal infiltrated , continue zosyn empirically FOR 5-7 DAYS pending sputum culture, and swallow eval , monitor CXR (2) Acute on chronic renal insufficiency Assessment & Plan: avoid nephrotoxics, monitor renal function , renal is following (3) At high risk for aspiration Assessment & Plan: aspiration precaution, keep HOB > 30 Degree all the time (4) Acute CHF Assessment & Plan: with dyspnea continue diuresis , monitor daily weight , fluids restriction (5) COPD (chronic obstructive pulmonary disease) Assessment & Plan: with acute exacerbation due to the above, continue antibiotics and nebulizers Subjective Constitutional: Reports: no symptoms HEENT: Reports: no symptoms Respiratory: Reports: shortness of breath, productive cough Breasts: Reports: no symptoms Cardiovascular: Reports: no symptoms Gastrointestinal/Abdominal: Reports: no symptoms Genitourinary: Reports: no symptoms Neurologic: Reports: no symptoms Psychiatric: Reports: no symptoms Skin: Reports: no symptoms Endocrine: Reports: no symptoms Hematologic: Reports: no symptoms Musculoskeletal: Reports: no symptoms Allergies: Coded Allergies: MARYANA INHIBITORS (Unverified Allergy, Unknown, 01/31/14) ARB-ANGIOTENSIN RECEPTOR ANTAGONIST (Unverified Allergy, Unknown, 01/31/14) Subjective feels better with less cough and phlegm Objective Vital Signs Last 24 Hour Vital Signs Date Time Temp Pulse Resp B/P (MAP) Pulse Ox O2 Delivery O2 Flow Rate FiO2 12/06/17 13:14 131 109/83 12/06/17 12:00 98.1 131 20 109/83 (92) 98 98.1 12/06/17 09:11 128 20 99 Room Air 12/06/17 09:01 128 21 97 Room Air 21 12/06/17 09:00 Nasal Cannula 2.0 12/06/17 08:13 130 118/78 12/06/17 08:00 129 12/06/17 08:00 97.5 130 20 118/78 (91) 96 97.5 12/06/17 07:37 Room Air 12/06/17 07:37 Room Air 12/06/17 06:12 131 113/92 12/06/17 06:11 113/92 12/06/17 04:00 131 12/06/17 04:00 97.0 130 20 113/92 (99) 93 97.0 12/06/17 00:00 130 12/06/17 00:00 97.3 130 22 118/83 (95) 93 97.3 12/05/17 22:00 129 97/67 12/05/17 21:27 129 20 100 Room Air 12/05/17 21:21 127 18 97 Room Air 12/05/17 21:00 Nasal Cannula 2.0 12/05/17 20:00 97.5 129 24 97/67 (77) 98 97.5 12/05/17 20:00 130 12/05/17 16:00 127 12/05/17 16:00 98.2 127 24 108/67 (81) 98 98.2 Height (Feet): 6 Height (Inches): 0.00 Weight (Pounds): 220 General Appearance: WD/WN, no acute distress HEENT: normocephalic, atraumatic, anicteric, mucous membranes moist, EOMI, pharynx normal, supple Respiratory/Chest: chest wall non-tender, no respiratory distress, no accessory muscle use, decreased breath sounds, crackles/rales Cardiovascular: normal peripheral pulses, normal rate, regular rhythm, no gallop/murmur, no JVD Abdomen: normal bowel sounds, soft, non tender, no organomegaly, non distended , no mass, no scars Extremities: no cyanosis, no clubbing Skin: no rash, no lesions, no ulcers Neurologic/Psychiatric: alert, responsive Lymphatic: no neck adenopathy, no groin adenopathy Microbiology Date/Time Source Procedure Growth Status 12/03/17 20:22 Blood Blood Culture - Preliminary NO GROWTH AFTER 48 HOURS Resulted 12/03/17 20:07 Blood Blood Culture - Preliminary NO GROWTH AFTER 48 HOURS Resulted Laboratory Tests Test 12/06/17 06:20 Prothrombin Time 31.4 SEC (9.30-11.50) H Prothromb Time International Ratio 3.2 (0.9-1.1) H Current Medications Medications (Trade) Dose Ordered Sig/Con Route PRN Reason Start Time Stop Time Status Last Admin Dose Admin Acetaminophen (Tylenol) 650 mg Q4H PRN ORAL Mild Pain (Pain Scale 1-3) 12/03/17 23:00 01/02/18 22:59 Budesonide (Pulmicort) 0.25 mg EVERY 12 HOURS HHN 12/04/17 09:00 01/03/18 08:59 12/06/17 09:00 Dextrose (Dextrose 50%) 25 ml STAT PRN IV Hypoglycemia 12/03/17 23:00 01/02/18 22:59 Dextrose (Dextrose 50%) 50 ml STAT PRN IV Hypoglycemia 12/03/17 23:00 01/02/18 22:59 Diltiazem HCl (Cardizem) 60 mg EVERY 6 HOURS ORAL 12/07/17 06:00 01/06/18 05:59 Divalproex Sodium (Depakote ER) 250 mg EVERY 12 HOURS ORAL 12/04/17 09:00 01/03/18 08:59 12/06/17 08:12 Docusate Sodium (Colace) 100 mg TID ORAL 12/04/17 18:00 01/03/18 08:59 12/06/17 13:14 Famotidine (Pepcid) 20 mg BID ORAL 12/04/17 09:00 01/03/18 08:59 12/06/17 08:13 Folic Acid (Folate) 2 mg DAILY ORAL 12/06/17 13:00 01/05/18 12:59 12/06/17 13:15 Guaifenesin (Robitussin) 200 mg Q6H PRN PO cough & congestion 12/04/17 01:30 01/03/18 01:29 12/04/17 15:02 Ipratropium [place] (Atrovent) 500 mcg Q4H PRN HHN Shortness of Breath 12/06/17 10:00 12/11/17 09:59 Ipratropium [place] (Atrovent) 500 mcg Q6HRT HHN 12/06/17 13:00 12/11/17 12:59 Levetiracetam (Keppra) 500 mg Q12HR ORAL 12/04/17 09:00 01/03/18 08:59 12/06/17 08:13 Levothyroxine Sodium (Synthroid) 100 mcg DAILY@0630 ORAL 12/06/17 06:30 01/05/18 06:29 12/06/17 06:12 Metoprolol Tartrate (Lopressor) 50 mg Q8HR ORAL 12/04/17 06:00 01/03/18 05:59 12/06/17 13:14 Piperacillin Sod/ Tazobactam Sod 3.375 gm/Dextrose 110 ml @ 27.5 mls/hr EVERY 8 HOURS IVPB 12/04/17 14:00 12/09/17 13:59 12/06/17 14:36 Tamsulosin HCl (Flomax) 0.4 mg BID ORAL 12/04/17 18:00 01/03/18 20:59 12/06/17 08:13 Warfarin Sodium (Coumadin per pharmacy) 1 ea DAILY PRN MISC Per rx protocol 12/03/17 23:00 01/02/18 22:59 Warfarin Sodium (Coumadin) 3 mg COUMADIN ONCE ORAL 12/06/17 17:00 12/06/17 17:01 Zolpidem Tartrate (Ambien) 5 mg DAILYPRN PRN ORAL Insomnia 12/03/17 23:00 12/10/17 22:59 Lyssa Strong M.D. Dec 06, 2017 15:14
[2017-12-06 16:00] VITALS: BP 119/76
[2017-12-06] MEDS ORDERED: Warfarin Sodium 3mg ORAL ONE (17:00)
--- NOTE | 2017-12-06 19:55 | General Progress Note ---
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 Depakote 250mg bid provide ro/st Subjective Date patient seen: Dec 06, 2017 Neurologic/Psychiatric: Reports: anxiety, depressed Allergies: Coded Allergies: MARYANA INHIBITORS (Unverified Allergy, Unknown, 01/31/14) ARB-ANGIOTENSIN RECEPTOR ANTAGONIST (Unverified Allergy, Unknown, 01/31/14) Subjective more alert Objective Last 24 Hour Vital Signs Date Time Temp Pulse Resp B/P (MAP) Pulse Ox O2 Delivery O2 Flow Rate FiO2 12/06/17 16:00 131 12/06/17 16:00 97.5 130 20 119/76 (90) 100 97.5 12/06/17 13:14 131 109/83 12/06/17 12:00 98.1 131 20 109/83 (92) 98 98.1 12/06/17 12:00 131 12/06/17 09:11 128 20 99 Room Air 12/06/17 09:01 128 21 97 Room Air 21 12/06/17 09:00 Nasal Cannula 2.0 12/06/17 08:13 130 118/78 12/06/17 08:00 129 12/06/17 08:00 97.5 130 20 118/78 (91) 96 97.5 12/06/17 07:37 Room Air 12/06/17 07:37 Room Air 12/06/17 06:12 131 113/92 12/06/17 06:11 113/92 12/06/17 04:00 131 12/06/17 04:00 97.0 130 20 113/92 (99) 93 97.0 12/06/17 00:00 130 12/06/17 00:00 97.3 130 22 118/83 (95) 93 97.3 12/05/17 22:00 129 97/67 12/05/17 21:27 129 20 100 Room Air 12/05/17 21:21 127 18 97 Room Air 12/05/17 21:00 Nasal Cannula 2.0 12/05/17 20:00 97.5 129 24 97/67 (77) 98 97.5 12/05/17 20:00 130 Intake and Output 12/05/17 12/06/17 19:00 07:00 Intake Total 455 ml Output Total 2000 ml 600 ml Balance -1545 ml -600 ml Intake Oral 455 ml Output Urine Total 2000 ml 600 ml Laboratory Tests 12/06/17 06:20: Prothrombin Time 31.4H, Prothromb Time International Ratio 3.2H Height (Feet): 6 Height (Inches): 0.00 Weight (Pounds): 220 General Appearance: no apparent distress, alert, confused Rufus Velasquez MD Dec 06, 2017 19:55
[2017-12-06 20:00] VITALS: BP 124/86
--- NOTE | 2017-12-06 21:16 | Cardiology Report ---
APPROVED REPORT EXAM: Two-dimensional and M-mode echocardiogram with Doppler and color Doppler. INDICATION Congestive Heart Failure M-Mode DIMENSIONS IVSd2.0 (0.7-1.1cm)Left Atrium (MM)5.1 (1.6-4.0cm) LVDd3.9 (3.5-5.6cm)Aortic Root4.1 (2.0-3.7cm) PWd1.9 (0.7-1.1cm)Aortic Cusp Exc.1.8 (1.5-2.0cm) LVDs2.9 (2.5-4.0cm) PWs2.3 cm Normal left ventricular chamber size, Mild septal hypokinesis. Basal to mid inferior akinesis. Ischemic cardiomyopathy can not be excluded. Left ventricular ejection fraction estimated to be 50 %. Moderate left ventricular hypertrophy. Small posterior pericardial effusion. Moderate left atrial enlargement. Mild right atrial enlargement. Right ventricular chamber size is within normal limits. Focal aortic valve sclerosis with adequate cusp excursion. Thickened mitral valve leaflets with normal excursion. Mitral annulus and aortic root calcification. Pulmonic valve not well visualized. Normal tricuspid valve structure. IVC dilated at 2.4 cm without physiologic collapse suggestive of increased RA pressure. A color flow and spectral Doppler study was performed and revealed: Trace aortic regurgitation. Mild to moderate mitral regurgitation. Mitral diastolic velocities suggest reduced left ventricular relaxation c/w mild LV diastolic dysfunction (Grade I). Mild tricuspid regurgitation. Tricuspid systolic velocities suggests peak right ventricular systolic pressure of 53 mmHg, consistent with moderate pulmonary hypertension. Moderate pulmonic regurgitation present.
--- NOTE | 2017-12-06 23:40 | Cardiology Progress Note ---
Assessment/Plan Assessment/Plan 1. Permanent atrial fibrillation with RVR, will adjust metoprolol and diltiazem dosage, continue warfarin, INR within the therapeutic level, echo shows borderline LVEF likely due to atrial fibrillation. 2. Possible chronic HFpEF due to atrial fibrillation. 3. Hypotension, furosemide. 4. Hypothyroidism 5. Anemia 6. Hx of CVA Subjective Subjective Atrial fibrillation with rapid ventricular response at 130. Objective Last 24 Hour Vital Signs Date Time Temp Pulse Resp B/P (MAP) Pulse Ox O2 Delivery O2 Flow Rate FiO2 12/06/17 22:54 129 22 99 Nasal Cannula 2.0 28 12/06/17 21:18 130 124/86 12/06/17 21:00 Nasal Cannula 2.0 12/06/17 20:00 98.1 130 18 124/86 (99) 100 98.1 12/06/17 20:00 130 12/06/17 19:46 128 20 99 Nasal Cannula 2.0 28 12/06/17 19:36 128 21 98 Nasal Cannula 2.0 28 12/06/17 16:00 131 12/06/17 16:00 97.5 130 20 119/76 (90) 100 97.5 12/06/17 13:14 131 109/83 12/06/17 12:00 98.1 131 20 109/83 (92) 98 98.1 12/06/17 12:00 131 12/06/17 09:11 128 20 99 Room Air 12/06/17 09:01 128 21 97 Room Air 21 12/06/17 09:00 Nasal Cannula 2.0 12/06/17 08:13 130 118/78 12/06/17 08:00 129 12/06/17 08:00 97.5 130 20 118/78 (91) 96 97.5 12/06/17 07:37 Room Air 12/06/17 07:37 Room Air 12/06/17 06:12 131 113/92 12/06/17 06:11 113/92 12/06/17 04:00 131 12/06/17 04:00 97.0 130 20 113/92 (99) 93 97.0 12/06/17 00:00 130 12/06/17 00:00 97.3 130 22 118/83 (95) 93 97.3 Intake and Output 12/05/17 12/06/17 19:00 07:00 Intake Total 455 ml Output Total 2000 ml 600 ml Balance -1545 ml -600 ml Intake Oral 455 ml Output Urine Total 2000 ml 600 ml 2D Echo: EF 50%, mod LVH, RVSp 53 mmHg, Grade I LVDD, Mod TX/MR, Small Nellie Eff. Laboratory Tests Test 12/06/17 06:20 Prothrombin Time 31.4 SEC (9.30-11.50) H Prothromb Time International Ratio 3.2 (0.9-1.1) H Objective HEENT: Atraumatic and normocephalic. Anicteric. Pupils are equal, round, and reactive to light and accommodation. Extraocular muscles intact. NECK: JVP is less than 5 cm. No carotid bruit. Carotid upstrokes 2+ bilaterally. CARDIOVASCULAR SYSTEM: Normal S1, S2. Irregularly irregular rhythm. No murmurs, gallops, or rubs. PMI is at fourth intercostal space at midclavicular line. LUNGS: Clear to auscultation bilaterally. ABDOMEN: Soft, nontender, and nondistended. No hepatosplenomegaly. Positive bowel sounds. EXTREMITIES: No evidence of edema, clubbing, or cyanosis. Tj Crespo MD Dec 06, 2017 23:40
[2017-12-07] VITALS: BP 120/80
[2017-12-07] MEDS: Ipratropium 0.02% Inh Soln 2.5ml UD HHN SCH ×3 (01:26→13:16)
[2017-12-07 02:35] LABS: APPEARANCE,URINE SLIGHTLY CLOUDY; BILIRUBIN, URINE NEGATIVE (NEGATIVE); COLOR,URINE PALE YELLOW; GLUCOSE, URINE (UA) NEGATIVE (NEGATIVE); KETONES,URINE NEGATIVE (NEGATIVE); LEUKOCYTE ESTERASE ,URINE 3+ (NEGATIVE); NITRITE,URINE POSITIVE (NEGATIVE); PH,URINE 5 (4.5-8.0); PROTEIN,URINE 1+ (NEGATIVE); UROBILINOGEN,URINE NORMAL MG/DL (0.0-1.0)
[2017-12-07 04:00] VITALS: BP 130/88
[2017-12-07] MEDS ORDERED: dilTIAZem HCl 60mg tab ORAL SCH (06:00)
[2017-12-07 06:09] LABS: EOSINOPHILS % (AUTO) 5.5 % (0.0-3.0); HEMATOCRIT 32.2 % (42.0-52.0); HEMOGLOBIN 10.2 G/DL (14.2-18.0); LYMPHOCYTES % (AUTO) 32.8 % (20.0-45.0); MEAN CORPUSCULAR VOLUME 90 FL (80-99); MONOCYTES % (AUTO) 15.4 % (1.0-10.0); NEUTROPHILS % (AUTO) 45.4 % (45.0-75.0); PLATELET COUNT 123 K/UL (150-450); RED BLOOD COUNT 3.58 M/UL (4.70-6.10); RED CELL DISTRIBUTION WIDTH 15.7 % (11.6-14.8); WHITE BLOOD COUNT 4.2 K/UL (4.8-10.8)
[2017-12-07] MEDS: Piperacillin/Tazobactam 3.375 GM in D5W 110 ML IVPB SCH ×2 (06:10→18:10)
[2017-12-07] MEDS: Metoprolol Tartrate 50mg tab ORAL SCH ×3 (06:10→22:00)
[2017-12-07 06:23] LABS: INR 3.5 (0.9-1.1)
[2017-12-07 06:38] LABS: PHOSPHORUS 3.4 MG/DL (2.5-4.9)
[2017-12-07 06:56] LABS: ALANINE AMINOTRANSFERASE 15 U/L (12-78); ALBUMIN 2.9 G/DL (3.4-5.0); ALBUMIN/GLOBULIN RATIO 0.7 (1.0-2.7); ALKALINE PHOSPHATASE 52 U/L (46-116); ANION GAP 10 mmol/L (5-15); ASPARTATE AMINO TRANSFERASE 14 U/L (15-37); BILIRUBIN,TOTAL 0.6 MG/DL (0.2-1.0); BLOOD UREA NITROGEN 33 mg/dL (7-18); CALCIUM 8.6 MG/DL (8.5-10.1); CARBON DIOXIDE 24 MMOL/L (21-32); CHLORIDE 110 MMOL/L (98-107); CREATININE 2.2 MG/DL (0.55-1.30); POTASSIUM 4.3 MMOL/L (3.5-5.1); SODIUM 144 MMOL/L (136-145)
[2017-12-07 08:00] VITALS: BP 116/75
[2017-12-07] MEDS: dilTIAZem HCl 60mg tab ORAL SCH ×3 (09:23→18:09)
[2017-12-07] MEDS: Docusate 100mg cap ORAL SCH ×3 (09:24→18:10)
[2017-12-07] MEDS: Depakote ER 250mg tab ORAL SCH ×2 (09:24→21:02)
[2017-12-07] MEDS: Tamsulosin 0.4mg cap ORAL SCH ×2 (09:24→18:09)
[2017-12-07] MEDS: Budesonide HHN 0.25mg/2ml ud HHN SCH ×2 (09:43→21:00)
--- NOTE | 2017-12-07 10:28 | General Progress Note ---
Assessment/Plan Assessment/Plan S: I am doing ok O: appears comfortable. improved sob. Dementia, limited source of information PHYSICAL EXAMINATION: HEAD AND NECK: Atraumatic and normocephalic. CHEST: Bronchial BS, No wheezing, HEART: S1 and S2. IRegular rate and rhythm. ABDOMEN: Soft. No organomegaly. MUSCULOSKELETAL: Positive for right hemiplegia at baseline. NEUROLOGY: The patient is awake. right side weakness, alert and oriented x2 at baseline. Meds: reviewed and reconciled including Christinasyn ASSESSMENT AND PLAN: 1. Acute Hypoxemic RF, CHF exacerbation vs Brochitis vs Chemical aspiration 2. Seizures d/o 2. Dementia. 3. Cerebrovascular accident with right hemiplegia. 4. Atrial fibrillation with controlled rate on therapeutic ATC. 5. Congestive heart failure - diastolic with the preserved ejection fraction. 6. Hypothyroidism. 7. Hypertension. 8. Acute on chronic renal failure, 9. Benign prostatic hypertrophy. 10. Gastrointestinal and deep vein thrombosis prophylaxes. 11. Dysphagi- Severe PLAN OF CARE: stable basal infiltrates, New asp ? Volume overload? Increased the Levothyroxin. current pulmonary mgt Proceed with PEG t placement failed V-swallow test Subjective Allergies: Coded Allergies: MARYANA INHIBITORS (Unverified Allergy, Unknown, 01/31/14) ARB-ANGIOTENSIN RECEPTOR ANTAGONIST (Unverified Allergy, Unknown, 01/31/14) Objective Last 24 Hour Vital Signs Date Time Temp Pulse Resp B/P (MAP) Pulse Ox O2 Delivery O2 Flow Rate FiO2 12/07/17 09:54 127 20 99 Nasal Cannula 2.0 28 12/07/17 09:43 128 20 99 Nasal Cannula 2.0 28 12/07/17 09:23 120 116/75 12/07/17 09:00 Nasal Cannula 2.0 12/07/17 08:31 127 20 99 Nasal Cannula 2.0 28 12/07/17 08:26 129 20 99 Nasal Cannula 2.0 28 12/07/17 08:00 97.5 120 20 116/75 (89) 99 97.5 12/07/17 08:00 128 12/07/17 06:10 130 130/88 12/07/17 04:00 97.3 130 22 130/88 (102) 99 97.3 12/07/17 04:00 130 12/07/17 01:26 128 21 97 Nasal Cannula 2.0 28 12/07/17 00:00 97.7 130 20 120/80 (93) 98 97.7 12/07/17 00:00 129 12/06/17 23:54 128 20 99 Nasal Cannula 2.0 28 12/06/17 22:54 129 22 99 Nasal Cannula 2.0 28 12/06/17 21:18 130 124/86 12/06/17 21:00 Nasal Cannula 2.0 12/06/17 20:00 98.1 130 18 124/86 (99) 100 98.1 12/06/17 20:00 130 12/06/17 19:46 128 20 99 Nasal Cannula 2.0 28 12/06/17 19:36 128 21 98 Nasal Cannula 2.0 28 12/06/17 16:00 131 12/06/17 16:00 97.5 130 20 119/76 (90) 100 97.5 12/06/17 13:14 131 109/83 12/06/17 12:00 98.1 131 20 109/83 (92) 98 98.1 12/06/17 12:00 131 Intake and Output 12/06/17 12/07/17 19:00 07:00 Intake Total 390 ml 132.9 ml Output Total 450 ml 450 ml Balance -60 ml -317.1 ml Intake Oral 390 ml IV Total 132.9 ml Output Urine Total 450 ml 450 ml # Bowel Movements 1 3 Laboratory Tests 12/07/17 02:20: Urine Color Pale yellow, Urine Appearance Slightly cloudy, Urine pH 5, Urine Specific [place] 1.010, Urine Protein 1+H, Urine Glucose (UA) Negative, Urine Ketones Negative, Urine Blood 4+H, Urine Nitrite PositiveH, Urine Bilirubin Negative, Urine Urobilinogen Normal, Urine Leukocyte Esterase 3+H, Urine RBC 5- 10H, Urine WBC 2-4, Urine Squamous Epithelial Cells Occasional, Urine Bacteria Occasional, Urine Yeast FewH 12/07/17 05:25: White Blood Count 4.2L, Red Blood Count 3.58L, Hemoglobin 10.2L, Hematocrit 32.2L, Mean Corpuscular Volume 90, Mean Corpuscular Hemoglobin 28.6, Mean Corpuscular Hemoglobin Concent 31.8L, Red Cell Distribution Width 15.7H, Platelet Count 123L, Mean Platelet Volume 6.5, Neutrophils (%) (Auto) 45.4, Lymphocytes (%) (Auto) 32.8, Monocytes (%) (Auto) 15.4H, Eosinophils (%) (Auto) 5.5H, Basophils (%) (Auto) 1.0, Prothrombin Time 34.1H, Prothromb Time International Ratio 3.5H, Sodium Level 144, Potassium Level 4.3, Chloride Level 110H, Carbon Dioxide Level 24, Anion Gap 10, Blood Urea Nitrogen 33H, Creatinine 2.2H, Estimat Glomerular Filtration Rate , Glucose Level 89, Uric Acid 7.1, Calcium Level 8.6, Phosphorus Level 3.4, Magnesium Level 1.6L, Total Bilirubin 0.6, Aspartate Amino Transf (AST/SGOT) 14L, Alanine Aminotransferase ( ALT/SGPT) 15, Alkaline Phosphatase 52, C-Reactive Protein, Quantitative 2.1H, Pro-B-Type Natriuretic Peptide 7194H, Total Protein 7.3, Albumin 2.9L, Globulin 4.4, Albumin/Globulin Ratio 0.7L Height (Feet): 6 Height (Inches): 0.00 Weight (Pounds): 218 Ondina Geiger MD Dec 07, 2017 10:28
--- NOTE | 2017-12-07 11:12 | GI Initial Consult Note ---
History of Present Illness General Date patient seen: Dec 07, 2017 Time patient seen: 10:00 Reason for Hospitalization: Upper Respiratory Illness Referring physician: VALORIE ARCE Reason for Consultation: PEG EVALUATION Present Illness HPI Mr. Ybarra is an 82 yo male with hx of CVA, cardiomyopathy, atrial fibrillation and a host of medical illnesses who presents from SNF with congestion, dyspnea. Patient denies pain but he did have productive cough. Reported increased oxygen required 3 L NC per EMS. Further hx obtained from PCP Dr. Arce, SNF documentation and EMR. Nurse reported facial swelling right sided. patient has hx of right sided hemiplegia residual from CVA. GI consulted for PEG evaluation. Pt seen, awake alert oriented NAD with no active s/sx of N/V/D. Has slurred speech, denied any abdominal pain N/V/D or constipation. ST evaluation noted s/p video swallow noted patient is high risk for aspiration. The patient also has history of aspiration pneumonia. Patient presents today with anemia, hypercoagulability, hypomagnesemia and hypoalbuminemia. Unknown history of endoscopy / colonoscopy. Home Meds Reported Medications Dextran 70/Hypromellose/Pf (ARTIFICIAL TEARS DROPS) 1 Each Droperette, 1 EACH OP Q6HR 12/03/17 Budesonide, Micronized (BUDESONIDE) 0.5 Gm Powder, 0.25 GM MC Q12HR, GM 12/03/17 Docusate Sodium (DOCUSATE SODIUM) 100 Mg Tablet, 100 MG ORAL TID, #60 TAB 0 Refills 12/03/17 Loratadine (LORATADINE) 10 Mg Tablet, 10 MG PO DAILY 08/26/17 Polyvinyl Alcohol (POLYVINYL ALCOHOL) 15 Ml Drops, 15 ML OP EVERY 6 HOURS PRN for BOTH EYES. FOR DRY EYE 08/26/17 Guaifenesin* (GUAIFENESIN) 100 Mg/5 Ml Liquid, 10 ML ORAL Q6H PRN for For Cough 08/26/17 Divalproex Sodium* (DEPAKOTE ER*) 250 Mg Tab.er.24h, 250 MG ORAL EVERY 12 HOURS 08/26/17 Albuterol Sulfate* (ALBUTEROL SULFATE HHN*) 2.5 Mg/3 Ml Vial.neb, 3 ML INH Q4H PRN for Shortness of Breath, EA 05/24/16 Tamsulosin Hcl (TAMSULOSIN HCL*) 0.4 Mg Cap.er.24h, 0.4 MG ORAL BEDTIME, CAP 04/27/16 Metoprolol Tartrate* (METOPROLOL TARTRATE*) 50 Mg Tablet, 50 MG ORAL EVERY 8 HOURS, TAB HOLD FOR SBP<100 OR HR <60 04/27/16 Levothyroxine Sodium* (LEVOTHYROXINE SODIUM*) 75 Mcg Tablet, 75 MCG ORAL DAILY, TAB Take in the morning on an empty stomach, at least 30 minutes before food. 04/27/16 Levetiracetam* (LEVETIRACETAM*) 500 Mg Tablet, 1500 MG ORAL Q12HR, #60 TAB 0 Refills 04/27/16 Isosorbide Dinitrate* (ISORDIL*) 10 Mg Tablet, 10 MG ORAL EVERY 8 HOURS, #20 TAB 0 Refills HOLD FOR SBP <100 04/27/16 Hydralazine HCl (Hydralazine HCl) 25 Mg Tablet, 25 MG PO Q8HR, TAB HOLD FOR SBP<100 04/27/16 Diltiazem Hcl (DILTIAZEM 24HR CD) 240 Mg Cap.er.24h, 240 MG PO DAILY, CAP 04/27/16 Digoxin* (DIGOXIN*) 125 Mcg Tablet, 125 MCG ORAL DAILY, TAB 04/27/16 Acetaminophen (Acetaminophen) 650 Mg/20.3 Ml Solution, 325 MG ORAL Q4HR PRN for Mild Pain (Pain Scale 1-3), ML 0 Refills 04/18/16 Med list reviewed/reconciled: Yes Allergies: Coded Allergies: MARYANA INHIBITORS (Unverified Allergy, Unknown, 01/31/14) ARB-ANGIOTENSIN RECEPTOR ANTAGONIST (Unverified Allergy, Unknown, 01/31/14) Patient History Limited by: medical condition History Provided By: Patient, Medical Record PMH Narrative Hx Cardiac Problems: Yes Hx Hypertension: Yes 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 Hx COPD: Yes Hx Diabetes: No - hypothyroidism Hx Cancer: No Hx Gastrointestinal Problems: No Hx Dialysis: No - CKD Hx Neurological Problems: Yes - Encephalapathy,Neuralgia Hx Cerebrovascular Accident: Yes Hx Dementia: Yes Hx Seizures: Yes Hx Weakness: Yes Review of Systems All Other Systems: negative except mentioned in HPI Physical Exam Vital Signs Date Time Temp Pulse Resp B/P (MAP) Pulse Ox O2 Delivery O2 Flow Rate FiO2 12/03/17 19:38 97.7 100 20 117/73 97 Nasal Cannula 3.0 97.7 12/05/17 09:38 32 Sp02 EP Interpretation: reviewed, normal Labs Laboratory Tests Test 12/07/17 02:20 12/07/17 05:25 Urine Color Pale yellow Urine Appearance Slightly cloudy Urine pH 5 (4.5-8.0) Urine Specific [place] 1.010 (1.005-1.035) Urine Protein 1+ (NEGATIVE) H Urine Glucose (UA) Negative (NEGATIVE) Urine Ketones Negative (NEGATIVE) Urine Blood 4+ (NEGATIVE) H Urine Nitrite Positive (NEGATIVE) H Urine Bilirubin Negative (NEGATIVE) Urine Urobilinogen Normal MG/DL (0.0-1.0) Urine Leukocyte Esterase 3+ (NEGATIVE) H Urine RBC 5-10 /HPF (0 - 0) H Urine WBC 2-4 /HPF (0 - 0) Urine Squamous Epithelial Cells Occasional /LPF Urine Bacteria Occasional /HPF (NONE) Urine Yeast Few /HPF (NONE) H White Blood Count 4.2 K/UL (4.8-10.8) L Red Blood Count 3.58 M/UL (4.70-6.10) L Hemoglobin 10.2 G/DL (14.2-18.0) L Hematocrit 32.2 % (42.0-52.0) L Mean Corpuscular Volume 90 FL (80-99) Mean Corpuscular Hemoglobin 28.6 PG (27.0-31.0) Mean Corpuscular Hemoglobin Concent 31.8 G/DL (32.0-36.0) L Red Cell Distribution Width 15.7 % (11.6-14.8) H Platelet Count 123 K/UL (150-450) L Mean Platelet Volume 6.5 FL (6.5-10.1) Neutrophils (%) (Auto) 45.4 % (45.0-75.0) Lymphocytes (%) (Auto) 32.8 % (20.0-45.0) Monocytes (%) (Auto) 15.4 % (1.0-10.0) H Eosinophils (%) (Auto) 5.5 % (0.0-3.0) H Basophils (%) (Auto) 1.0 % (0.0-2.0) Prothrombin Time 34.1 SEC (9.30-11.50) H Prothromb Time International Ratio 3.5 (0.9-1.1) H Sodium Level 144 MMOL/L (136-145) Potassium Level 4.3 MMOL/L (3.5-5.1) Chloride Level 110 MMOL/L (98-107) H Carbon Dioxide Level 24 MMOL/L (21-32) Anion Gap 10 mmol/L (5-15) Blood Urea Nitrogen 33 mg/dL (7-18) H Creatinine 2.2 MG/DL (0.55-1.30) H Estimat Glomerular Filtration Rate mL/min (>60) Glucose Level 89 MG/DL (74-106) Uric Acid 7.1 MG/DL (2.6-7.2) Calcium Level 8.6 MG/DL (8.5-10.1) Phosphorus Level 3.4 MG/DL (2.5-4.9) Magnesium Level 1.6 MG/DL (1.8-2.4) L Total Bilirubin 0.6 MG/DL (0.2-1.0) Aspartate Amino Transf (AST/SGOT) 14 U/L (15-37) L Alanine Aminotransferase (ALT/SGPT) 15 U/L (12-78) Alkaline Phosphatase 52 U/L (46-116) C-Reactive Protein, Quantitative 2.1 mg/dL (0.00-0.90) H Pro-B-Type Natriuretic Peptide 7194 pg/mL (0-125) H Total Protein 7.3 G/DL (6.4-8.2) Albumin 2.9 G/DL (3.4-5.0) L Globulin 4.4 g/dL Albumin/Globulin Ratio 0.7 (1.0-2.7) L General Appearance: well appearing, no apparent distress, alert Head: normocephalic EENT: PERRL/EOMI, normal ENT inspection Neck: supple Respiratory: normal breath sounds, no respiratory distress Cardiovascular: normal rate Gastrointestinal: normal inspection, non tender, soft, normal bowel sounds, non -distended Rectal: deferred Genitourinary: deferred Musculoskeletal: normal inspection, back normal Neurologic: alert, responsive Psychiatric: normal inspection, judgement/insight normal, memory normal Skin: normal inspection, normal color, no rash, warm/dry, palpation normal, well hydrated Lymphatic: normal inspection, no adenopathy Current Medications Current Medications Medications (Trade) Dose Ordered Sig/Con Route PRN Reason Start Time Stop Time Status Last Admin Dose Admin Acetaminophen (Tylenol) 650 mg Q4H PRN ORAL Mild Pain (Pain Scale 1-3) 12/03/17 23:00 01/02/18 22:59 Budesonide (Pulmicort) 0.25 mg EVERY 12 HOURS HHN 12/04/17 09:00 01/03/18 08:59 12/07/17 09:43 Dextrose (Dextrose 50%) 25 ml STAT PRN IV Hypoglycemia 12/03/17 23:00 01/02/18 22:59 Dextrose (Dextrose 50%) 50 ml STAT PRN IV Hypoglycemia 12/03/17 23:00 01/02/18 22:59 Diltiazem HCl (Cardizem) 90 mg TID ORAL 12/07/17 09:00 01/06/18 08:59 12/07/17 09:23 Divalproex Sodium (Depakote ER) 250 mg EVERY 12 HOURS ORAL 12/04/17 09:00 01/03/18 08:59 12/07/17 09:24 Docusate Sodium (Colace) 100 mg TID ORAL 12/04/17 18:00 01/03/18 08:59 12/07/17 09:24 Famotidine (Pepcid) 20 mg BID ORAL 12/04/17 09:00 01/03/18 08:59 12/07/17 09:24 Folic Acid (Folate) 2 mg DAILY ORAL 12/06/17 13:00 01/05/18 12:59 12/07/17 09:21 Guaifenesin (Robitussin) 200 mg Q6H PRN PO cough & congestion 12/04/17 01:30 01/03/18 01:29 12/04/17 15:02 Ipratropium [place] (Atrovent) 500 mcg Q4H PRN HHN Shortness of Breath 12/06/17 10:00 12/11/17 09:59 Ipratropium [place] (Atrovent) 500 mcg Q6HRT HHN 12/06/17 13:00 12/11/17 12:59 12/07/17 08:28 Levetiracetam (Keppra) 500 mg Q12HR ORAL 12/04/17 09:00 01/03/18 08:59 12/07/17 09:24 Levothyroxine Sodium (Synthroid) 100 mcg DAILY@0630 ORAL 12/06/17 06:30 01/05/18 06:29 12/07/17 06:10 Metoprolol Tartrate (Lopressor) 50 mg Q8HR ORAL 12/04/17 06:00 01/03/18 05:59 12/07/17 06:10 Piperacillin Sod/ Tazobactam Sod 3.375 gm/Dextrose 110 ml @ 27.5 mls/hr EVERY 8 HOURS IVPB 12/04/17 14:00 12/09/17 13:59 12/07/17 06:10 Tamsulosin HCl (Flomax) 0.4 mg BID ORAL 12/04/17 18:00 01/03/18 20:59 12/07/17 09:24 Warfarin Sodium (Coumadin per pharmacy) 1 ea DAILY PRN MISC Per rx protocol 12/03/17 23:00 01/02/18 22:59 Warfarin Sodium (Coumadin) 3 mg COUMADIN ONCE ORAL 12/07/17 17:00 12/07/17 17:01 Zolpidem Tartrate (Ambien) 5 mg DAILYPRN PRN ORAL Insomnia 12/03/17 23:00 12/10/17 22:59 GI: Plan Problems: (1) refusing food/po meds (2) L MCA subacute stroke (3) Diabetic nephropathy (4) Encounter for PEG (percutaneous endoscopic gastrostomy) (5) Dehydration (6) Dysphagia (7) Malnutrition (8) Electrolyte imbalance (9) At high risk for aspiration Plan We agree with recommendation to proceed with PEG. daughter was contacted by ST >> family to discuss possible PEG procedure will require cardiac clearance given tachycardia patient is also on Coumadin which must be dc [id number] prior procedure and INR corrected fu KUB for abdominal distention anemia work up reviewed OB stool r/o GI bleed monitor H&H, prn transfusions bowel regime ppi folate fu labs UPDATE @1400. The patients daughter agreed to proceed with PEG in which we will schedule for this Tuesday. HOLD Coumadin follow up coags tomorrow and will correct, Vit K prn follow up cardiac for clearance maintain NPO + IVFs Discussed with Dr. Rashid. Thank you for this patient referral, we will follow. The patient was seen and examined at bedside and all new and available data was reviewed in the patients chart. I agree with the above findings, impression and plan. (Patient seen earlier today. Signature stamp does not reflect patient encounter time.). - MD Martha ChowdaryHonorhealth Sonoran Crossing Medical CenterLelo SU Dec 07, 2017 11:12
[2017-12-07 12:00] VITALS: BP 101/69
--- NOTE | 2017-12-07 12:40 | Nephrology Progress Note ---
Assessment/Plan Problem List: (1) Acute on chronic renal failure (2) Atrial fibrillation with tachycardic ventricular rate (3) Seizure disorder (4) Diabetic nephropathy (5) Hypothyroid Assessment: adjust synthroid dose Assessment Renal failure due to pre renal azotemia due to underlying CHF- Cr 2.1 ? underlying CKD today up to 2.3 Afib Cardiomyopathy Acute CHF others: Acute Asthma/copd exacerbation seizures DM Cerebrovascular accident with right hemiplegia. Congestive heart failure - diastolic with the preserved ejection fraction. Benign prostatic hypertrophy. h/o Pneumonia- SVT , At fib- on anti coag h/o DVT- h/o HypoThyroidism h/o Gout Dementia HTN Plan HR management per [employer] cardiac and pulmonary status monitor renal parameters- avoid nephrotoxics- flomax adjust bp meds check labs discussed with CASPER MCKEON: Nonobstructive stones within the left kidney. Questionable nonobstructive stone in the right kidney. Noncontrast CT May BE of benefit for confirmation. No evidence of obstructive nephropathy. Multiple bilateral renal cysts. Subjective ROS Limited/Unobtainable: No Constitutional: Reports: malaise, weakness Objective Objective Last 24 Hour Vital Signs Date Time Temp Pulse Resp B/P (MAP) Pulse Ox O2 Delivery O2 Flow Rate FiO2 12/07/17 09:54 127 20 99 Nasal Cannula 2.0 28 12/07/17 09:43 128 20 99 Nasal Cannula 2.0 28 12/07/17 09:23 120 116/75 12/07/17 09:00 Nasal Cannula 2.0 12/07/17 08:31 127 20 99 Nasal Cannula 2.0 28 12/07/17 08:26 129 20 99 Nasal Cannula 2.0 28 12/07/17 08:00 97.5 120 20 116/75 (89) 99 97.5 12/07/17 08:00 128 12/07/17 06:10 130 130/88 12/07/17 04:00 97.3 130 22 130/88 (102) 99 97.3 12/07/17 04:00 130 12/07/17 01:26 128 21 97 Nasal Cannula 2.0 28 12/07/17 00:00 97.7 130 20 120/80 (93) 98 97.7 12/07/17 00:00 129 12/06/17 23:54 128 20 99 Nasal Cannula 2.0 28 12/06/17 22:54 129 22 99 Nasal Cannula 2.0 28 12/06/17 21:18 130 124/86 12/06/17 21:00 Nasal Cannula 2.0 12/06/17 20:00 98.1 130 18 124/86 (99) 100 98.1 12/06/17 20:00 130 12/06/17 19:46 128 20 99 Nasal Cannula 2.0 28 12/06/17 19:36 128 21 98 Nasal Cannula 2.0 28 12/06/17 16:00 131 12/06/17 16:00 97.5 130 20 119/76 (90) 100 97.5 12/06/17 13:14 131 109/83 Intake and Output 12/06/17 12/07/17 19:00 07:00 Intake Total 390 ml 132.9 ml Output Total 450 ml 450 ml Balance -60 ml -317.1 ml Intake Oral 390 ml IV Total 132.9 ml Output Urine Total 450 ml 450 ml # Bowel Movements 1 3 Laboratory Tests 12/07/17 02:20: Urine Color Pale yellow, Urine Appearance Slightly cloudy, Urine pH 5, Urine Specific [place] 1.010, Urine Protein 1+H, Urine Glucose (UA) Negative, Urine Ketones Negative, Urine Blood 4+H, Urine Nitrite PositiveH, Urine Bilirubin Negative, Urine Urobilinogen Normal, Urine Leukocyte Esterase 3+H, Urine RBC 5- 10H, Urine WBC 2-4, Urine Squamous Epithelial Cells Occasional, Urine Bacteria Occasional, Urine Yeast FewH 12/07/17 05:25: White Blood Count 4.2L, Red Blood Count 3.58L, Hemoglobin 10.2L, Hematocrit 32.2L, Mean Corpuscular Volume 90, Mean Corpuscular Hemoglobin 28.6, Mean Corpuscular Hemoglobin Concent 31.8L, Red Cell Distribution Width 15.7H, Platelet Count 123L, Mean Platelet Volume 6.5, Neutrophils (%) (Auto) 45.4, Lymphocytes (%) (Auto) 32.8, Monocytes (%) (Auto) 15.4H, Eosinophils (%) (Auto) 5.5H, Basophils (%) (Auto) 1.0, Prothrombin Time 34.1H, Prothromb Time International Ratio 3.5H, Sodium Level 144, Potassium Level 4.3, Chloride Level 110H, Carbon Dioxide Level 24, Anion Gap 10, Blood Urea Nitrogen 33H, Creatinine 2.2H, Estimat Glomerular Filtration Rate , Glucose Level 89, Uric Acid 7.1, Calcium Level 8.6, Phosphorus Level 3.4, Magnesium Level 1.6L, Total Bilirubin 0.6, Aspartate Amino Transf (AST/SGOT) 14L, Alanine Aminotransferase ( ALT/SGPT) 15, Alkaline Phosphatase 52, C-Reactive Protein, Quantitative 2.1H, Pro-B-Type Natriuretic Peptide 7194H, Total Protein 7.3, Albumin 2.9L, Globulin 4.4, Albumin/Globulin Ratio 0.7L Height (Feet): 6 Height (Inches): 0.00 Weight (Pounds): 218 General Appearance: no apparent distress, lethargic Cardiovascular: tachycardia, arrhythmia Respiratory/Chest: decreased breath sounds Abdomen: distended Objective no change Isaias Noe MD Dec 07, 2017 12:40
--- NOTE | 2017-12-07 14:54 | Infectious Diseases Prog Note ---
Assessment/Plan Problems: (1) HCAP (healthcare-associated pneumonia) Assessment & Plan: possible aspiration with basal infiltrated , continue zosyn empirically FOR 5-7 DAYS pending sputum culture, and swallow eval , monitor CXR (2) Acute on chronic renal insufficiency Assessment & Plan: avoid nephrotoxics, monitor renal function , renal is following (3) At high risk for aspiration Assessment & Plan: aspiration precaution, keep HOB > 30 Degree all the time (4) Acute CHF Assessment & Plan: with dyspnea continue diuresis , monitor daily weight , fluids restriction (5) COPD (chronic obstructive pulmonary disease) Assessment & Plan: with acute exacerbation due to the above, continue antibiotics and nebulizers Subjective Constitutional: Reports: no symptoms HEENT: Reports: no symptoms Respiratory: Reports: shortness of breath, productive cough Breasts: Reports: no symptoms Cardiovascular: Reports: no symptoms Gastrointestinal/Abdominal: Reports: no symptoms Genitourinary: Reports: no symptoms Neurologic: Reports: no symptoms Psychiatric: Reports: no symptoms Skin: Reports: no symptoms Endocrine: Reports: no symptoms Hematologic: Reports: no symptoms Musculoskeletal: Reports: no symptoms Allergies: Coded Allergies: MARYANA INHIBITORS (Unverified Allergy, Unknown, 01/31/14) ARB-ANGIOTENSIN RECEPTOR ANTAGONIST (Unverified Allergy, Unknown, 01/31/14) Subjective he still has cough and phlegm but less than before, can breath better Objective Vital Signs Last 24 Hour Vital Signs Date Time Temp Pulse Resp B/P (MAP) Pulse Ox O2 Delivery O2 Flow Rate FiO2 12/07/17 13:53 129 101/69 12/07/17 13:53 129 101/69 12/07/17 13:23 128 20 99 Nasal Cannula 2.0 28 12/07/17 13:15 129 20 98 Nasal Cannula 2.0 28 12/07/17 12:00 97.2 129 20 101/69 (80) 100 97.2 12/07/17 09:54 127 20 99 Nasal Cannula 2.0 28 12/07/17 09:43 128 20 99 Nasal Cannula 2.0 28 12/07/17 09:23 120 116/75 12/07/17 09:00 Nasal Cannula 2.0 12/07/17 08:31 127 20 99 Nasal Cannula 2.0 28 12/07/17 08:26 129 20 99 Nasal Cannula 2.0 28 12/07/17 08:00 97.5 120 20 116/75 (89) 99 97.5 12/07/17 08:00 128 12/07/17 06:10 130 130/88 12/07/17 04:00 97.3 130 22 130/88 (102) 99 97.3 12/07/17 04:00 130 12/07/17 01:26 128 21 97 Nasal Cannula 2.0 28 12/07/17 00:00 97.7 130 20 120/80 (93) 98 97.7 12/07/17 00:00 129 12/06/17 23:54 128 20 99 Nasal Cannula 2.0 28 12/06/17 22:54 129 22 99 Nasal Cannula 2.0 28 12/06/17 21:18 130 124/86 12/06/17 21:00 Nasal Cannula 2.0 12/06/17 20:00 98.1 130 18 124/86 (99) 100 98.1 12/06/17 20:00 130 12/06/17 19:46 128 20 99 Nasal Cannula 2.0 28 12/06/17 19:36 128 21 98 Nasal Cannula 2.0 28 12/06/17 16:00 131 12/06/17 16:00 97.5 130 20 119/76 (90) 100 97.5 Height (Feet): 6 Height (Inches): 0.00 Weight (Pounds): 218 General Appearance: WD/WN, no acute distress HEENT: normocephalic, atraumatic, anicteric, mucous membranes moist, PERRL Respiratory/Chest: chest wall non-tender, no respiratory distress, no accessory muscle use, decreased breath sounds, crackles/rales Cardiovascular: normal peripheral pulses, normal rate, regular rhythm, no gallop/murmur, no JVD Abdomen: normal bowel sounds, soft, non tender, no organomegaly, non distended , no mass, no scars Extremities: no cyanosis, no clubbing Skin: no rash, no lesions, no ulcers Neurologic/Psychiatric: alert, oriented x 3, responsive Lymphatic: no neck adenopathy, no groin adenopathy Laboratory Tests Test 12/07/17 02:20 12/07/17 05:25 Urine Color Pale yellow Urine Appearance Slightly cloudy Urine pH 5 (4.5-8.0) Urine Specific [place] 1.010 (1.005-1.035) Urine Protein 1+ (NEGATIVE) H Urine Glucose (UA) Negative (NEGATIVE) Urine Ketones Negative (NEGATIVE) Urine Blood 4+ (NEGATIVE) H Urine Nitrite Positive (NEGATIVE) H Urine Bilirubin Negative (NEGATIVE) Urine Urobilinogen Normal MG/DL (0.0-1.0) Urine Leukocyte Esterase 3+ (NEGATIVE) H Urine RBC 5-10 /HPF (0 - 0) H Urine WBC 2-4 /HPF (0 - 0) Urine Squamous Epithelial Cells Occasional /LPF Urine Bacteria Occasional /HPF (NONE) Urine Yeast Few /HPF (NONE) H White Blood Count 4.2 K/UL (4.8-10.8) L Red Blood Count 3.58 M/UL (4.70-6.10) L Hemoglobin 10.2 G/DL (14.2-18.0) L Hematocrit 32.2 % (42.0-52.0) L Mean Corpuscular Volume 90 FL (80-99) Mean Corpuscular Hemoglobin 28.6 PG (27.0-31.0) Mean Corpuscular Hemoglobin Concent 31.8 G/DL (32.0-36.0) L Red Cell Distribution Width 15.7 % (11.6-14.8) H Platelet Count 123 K/UL (150-450) L Mean Platelet Volume 6.5 FL (6.5-10.1) Neutrophils (%) (Auto) 45.4 % (45.0-75.0) Lymphocytes (%) (Auto) 32.8 % (20.0-45.0) Monocytes (%) (Auto) 15.4 % (1.0-10.0) H Eosinophils (%) (Auto) 5.5 % (0.0-3.0) H Basophils (%) (Auto) 1.0 % (0.0-2.0) Prothrombin Time 34.1 SEC (9.30-11.50) H Prothromb Time International Ratio 3.5 (0.9-1.1) H Sodium Level 144 MMOL/L (136-145) Potassium Level 4.3 MMOL/L (3.5-5.1) Chloride Level 110 MMOL/L (98-107) H Carbon Dioxide Level 24 MMOL/L (21-32) Anion Gap 10 mmol/L (5-15) Blood Urea Nitrogen 33 mg/dL (7-18) H Creatinine 2.2 MG/DL (0.55-1.30) H Estimat Glomerular Filtration Rate mL/min (>60) Glucose Level 89 MG/DL (74-106) Uric Acid 7.1 MG/DL (2.6-7.2) Calcium Level 8.6 MG/DL (8.5-10.1) Phosphorus Level 3.4 MG/DL (2.5-4.9) Magnesium Level 1.6 MG/DL (1.8-2.4) L Total Bilirubin 0.6 MG/DL (0.2-1.0) Aspartate Amino Transf (AST/SGOT) 14 U/L (15-37) L Alanine Aminotransferase (ALT/SGPT) 15 U/L (12-78) Alkaline Phosphatase 52 U/L (46-116) C-Reactive Protein, Quantitative 2.1 mg/dL (0.00-0.90) H Pro-B-Type Natriuretic Peptide 7194 pg/mL (0-125) H Total Protein 7.3 G/DL (6.4-8.2) Albumin 2.9 G/DL (3.4-5.0) L Globulin 4.4 g/dL Albumin/Globulin Ratio 0.7 (1.0-2.7) L Current Medications Medications (Trade) Dose Ordered Sig/Con Route PRN Reason Start Time Stop Time Status Last Admin Dose Admin Acetaminophen (Tylenol) 650 mg Q4H PRN ORAL Mild Pain (Pain Scale 1-3) 12/03/17 23:00 01/02/18 22:59 Budesonide (Pulmicort) 0.25 mg EVERY 12 HOURS HHN 12/04/17 09:00 01/03/18 08:59 12/07/17 09:43 Dextrose (Dextrose 50%) 25 ml STAT PRN IV Hypoglycemia 12/03/17 23:00 01/02/18 22:59 Dextrose (Dextrose 50%) 50 ml STAT PRN IV Hypoglycemia 12/03/17 23:00 01/02/18 22:59 Diltiazem HCl (Cardizem) 90 mg TID ORAL 12/07/17 09:00 01/06/18 08:59 12/07/17 13:53 Divalproex Sodium (Depakote ER) 250 mg EVERY 12 HOURS ORAL 12/04/17 09:00 01/03/18 08:59 12/07/17 09:24 Docusate Sodium (Colace) 100 mg TID ORAL 12/04/17 18:00 01/03/18 08:59 12/07/17 13:54 Famotidine (Pepcid) 20 mg BID ORAL 12/04/17 09:00 01/03/18 08:59 12/07/17 09:24 Folic Acid (Folate) 2 mg DAILY ORAL 12/06/17 13:00 01/05/18 12:59 12/07/17 09:21 Guaifenesin (Robitussin) 200 mg Q6H PRN PO cough & congestion 12/04/17 01:30 01/03/18 01:29 12/04/17 15:02 Ipratropium [place] (Atrovent) 500 mcg Q4H PRN HHN Shortness of Breath 12/06/17 10:00 12/11/17 09:59 Ipratropium [place] (Atrovent) 500 mcg Q6HRT HHN 12/06/17 13:00 12/11/17 12:59 12/07/17 13:16 Levetiracetam (Keppra) 500 mg Q12HR ORAL 12/04/17 09:00 01/03/18 08:59 12/07/17 09:24 Levothyroxine Sodium (Synthroid) 50 mcg DAILY@0630 ORAL 12/08/17 06:30 01/05/18 06:29 Metoprolol Tartrate (Lopressor) 50 mg Q8HR ORAL 12/04/17 06:00 01/03/18 05:59 12/07/17 13:53 Piperacillin Sod/ Tazobactam Sod 3.375 gm/Dextrose 110 ml @ 27.5 mls/hr Q12H IVPB 12/07/17 18:00 12/14/17 17:59 Tamsulosin HCl (Flomax) 0.4 mg BID ORAL 12/04/17 18:00 01/03/18 20:59 12/07/17 09:24 Zolpidem Tartrate (Ambien) 5 mg DAILYPRN PRN ORAL Insomnia 12/03/17 23:00 12/10/17 22:59 Lyssa Strong M.D. Dec 07, 2017 14:54
--- NOTE | 2017-12-07 14:55 | Pulmonology Progress Note ---
Assessment/Plan Assessment/Plan Pulmonary Consultation Note ASSESSMENT: The patient is an 82-year-old male with a [facility] resident with a history of chronic obstructive pulmonary disease, congestive heart failure, chronic kidney disease, dementia, prior cerebrovascular accident, and chronic atrial fibrillation, presenting with shortness of breath likely secondary to decompensated heart failure. He is also on Zosyn for possible aspiration and healthcare associated pneumonia. Stable overnight PROBLEM LIST: 1. Acute hypoxemic respiratory failure likely secondary to decompensated heart failure. 2. Bibasilar opacities, likely edema, possible aspiration. 3. Chronic obstructive pulmonary disease. 4. Congestive heart failure with acute decompensated heart failure. 5. Chronic atrial fibrillation. 6. Dementia. 7. Prior cerebrovascular accident. 8. Chronic kidney disease. 9. [facility] resident. TREATMENT PLAN: 1. Optimize pulmonary hygiene/mobilize as tolerated. 2. PRN O2 3. D/C DUOnebs, change to ATROVENT only 4. Continue b.i.d. budesonide. 5. Continue Zosyn per ID. 6. Monitor volumes and renal function, diuretics held 7. Aspiration precautions. 8. Diet per PER DIEM NURSE, VSS 9. DVT PROPHYLAXIS: The patient is on anticoagulation. 10. The patient is Full Code, continue to discuss goals of care. Subjective Allergies: Coded Allergies: MARYANA INHIBITORS (Unverified Allergy, Unknown, 01/31/14) ARB-ANGIOTENSIN RECEPTOR ANTAGONIST (Unverified Allergy, Unknown, 01/31/14) Subjective AFcRVR, stable on RA Denies SOB, no cough, no wheezing, no Cp Objective Last 24 Hour Vital Signs Date Time Temp Pulse Resp B/P (MAP) Pulse Ox O2 Delivery O2 Flow Rate FiO2 12/06/17 09:01 128 21 97 Room Air 21 12/06/17 08:13 130 118/78 12/06/17 08:00 97.5 130 20 118/78 (91) 96 97.5 12/06/17 07:37 Room Air 12/06/17 07:37 Room Air 12/06/17 06:12 131 113/92 12/06/17 06:11 113/92 12/06/17 04:00 131 12/06/17 04:00 97.0 130 20 113/92 (99) 93 97.0 12/06/17 00:00 130 12/06/17 00:00 97.3 130 22 118/83 (95) 93 97.3 12/05/17 22:00 129 97/67 12/05/17 21:27 129 20 100 Room Air 12/05/17 21:21 127 18 97 Room Air 12/05/17 21:00 Nasal Cannula 2.0 12/05/17 20:00 97.5 129 24 97/67 (77) 98 97.5 12/05/17 20:00 130 12/05/17 16:00 127 12/05/17 16:00 98.2 127 24 108/67 (81) 98 98.2 12/05/17 13:24 128 113/77 12/05/17 13:24 113/77 12/05/17 13:24 113/77 12/05/17 12:00 97.7 128 20 113/77 (89) 99 97.7 12/05/17 12:00 128 12/05/17 09:47 125 20 99 Nasal Cannula 3.0 32 12/05/17 09:44 126 18 Nasal Cannula 4.0 32 12/05/17 09:38 126 18 96 Nasal Cannula 3.0 32 Intake and Output 12/05/17 12/06/17 19:00 07:00 Intake Total 455 ml Output Total 2000 ml 600 ml Balance -1545 ml -600 ml Intake Oral 455 ml Output Urine Total 2000 ml 600 ml General Appearance: WD/WN, no acute distress HEENT: normocephalic, atraumatic, anicteric, mucous membranes moist Respiratory/Chest: chest wall non-tender, lungs clear, normal breath sounds, no respiratory distress, no accessory muscle use Cardiovascular: irregularly irregular Abdomen: normal bowel sounds, soft, non tender, no organomegaly, non distended , no mass Extremities: no cyanosis, no clubbing, no edema Microbiology Date/Time Source Procedure Growth Status 12/03/17 20:22 Blood Blood Culture - Preliminary NO GROWTH AFTER 48 HOURS Resulted 12/03/17 20:07 Blood Blood Culture - Preliminary NO GROWTH AFTER 48 HOURS Resulted Laboratory Tests 12/06/17 06:20: Prothrombin Time 31.4H, Prothromb Time International Ratio 3.2H Current Medications Medications (Trade) Dose Ordered Sig/Con Route PRN Reason Start Time Stop Time Status Last Admin Dose Admin Acetaminophen (Tylenol) 650 mg Q4H PRN ORAL Mild Pain (Pain Scale 1-3) 12/03/17 23:00 01/02/18 22:59 Albuterol/ Ipratropium (Albuterol/ Ipratropium) 3 ml Q4H PRN HHN Shortness of Breath 12/04/17 17:30 12/09/17 17:29 Albuterol/ Ipratropium (Albuterol/ Ipratropium) 3 ml THREE TIMES A DAY PRN HHN Shortness of Breath 12/03/17 23:00 12/08/17 22:59 Budesonide (Pulmicort) 0.25 mg EVERY 12 HOURS HHN 12/04/17 09:00 01/03/18 08:59 12/06/17 09:00 Dextrose (Dextrose 50%) 25 ml STAT PRN IV Hypoglycemia 12/03/17 23:00 01/02/18 22:59 Dextrose (Dextrose 50%) 50 ml STAT PRN IV Hypoglycemia 12/03/17 23:00 01/02/18 22:59 Diltiazem HCl (Cardizem CD) 240 mg DAILY ORAL 12/04/17 09:00 01/03/18 08:59 12/06/17 08:13 Divalproex Sodium (Depakote ER) 250 mg EVERY 12 HOURS ORAL 12/04/17 09:00 01/03/18 08:59 12/06/17 08:12 Docusate Sodium (Colace) 100 mg TID ORAL 12/04/17 18:00 01/03/18 08:59 12/06/17 08:13 Famotidine (Pepcid) 20 mg BID ORAL 12/04/17 09:00 01/03/18 08:59 12/06/17 08:13 Guaifenesin (Robitussin) 200 mg Q6H PRN PO cough & congestion 12/04/17 01:30 01/03/18 01:29 12/04/17 15:02 Isosorbide Dinitrate (Isordil) 10 mg Q8HR ORAL 12/06/17 06:00 01/03/18 05:59 12/06/17 06:11 Levetiracetam (Keppra) 500 mg Q12HR ORAL 12/04/17 09:00 01/03/18 08:59 12/06/17 08:13 Levothyroxine Sodium (Synthroid) 100 mcg DAILY@0630 ORAL 12/06/17 06:30 01/05/18 06:29 12/06/17 06:12 Metoprolol Tartrate (Lopressor) 50 mg Q8HR ORAL 12/04/17 06:00 01/03/18 05:59 12/06/17 06:12 Piperacillin Sod/ Tazobactam Sod 3.375 gm/Dextrose 110 ml @ 27.5 mls/hr EVERY 8 HOURS IVPB 12/04/17 14:00 12/09/17 13:59 12/06/17 06:09 Tamsulosin HCl (Flomax) 0.4 mg BID ORAL 12/04/17 18:00 01/03/18 20:59 12/06/17 08:13 Warfarin Sodium (Coumadin per pharmacy) 1 ea DAILY PRN MISC Per rx protocol 12/03/17 23:00 01/02/18 22:59 Warfarin Sodium (Coumadin) 3 mg COUMADIN ONCE ORAL 12/06/17 17:00 12/06/17 17:01 Zolpidem Tartrate (Ambien) 5 mg DAILYPRN PRN ORAL Insomnia 12/03/17 23:00 12/10/17 22:59 Subjective ROS Limited/Unobtainable: No Allergies: Coded Allergies: MARYANA INHIBITORS (Unverified Allergy, Unknown, 01/31/14) ARB-ANGIOTENSIN RECEPTOR ANTAGONIST (Unverified Allergy, Unknown, 01/31/14) Objective Last 24 Hour Vital Signs Date Time Temp Pulse Resp B/P (MAP) Pulse Ox O2 Delivery O2 Flow Rate FiO2 12/07/17 13:53 129 101/69 12/07/17 13:53 129 101/69 12/07/17 13:23 128 20 99 Nasal Cannula 2.0 28 12/07/17 13:15 129 20 98 Nasal Cannula 2.0 28 12/07/17 12:00 97.2 129 20 101/69 (80) 100 97.2 12/07/17 09:54 127 20 99 Nasal Cannula 2.0 28 12/07/17 09:43 128 20 99 Nasal Cannula 2.0 28 12/07/17 09:23 120 116/75 12/07/17 09:00 Nasal Cannula 2.0 12/07/17 08:31 127 20 99 Nasal Cannula 2.0 28 12/07/17 08:26 129 20 99 Nasal Cannula 2.0 28 12/07/17 08:00 97.5 120 20 116/75 (89) 99 97.5 12/07/17 08:00 128 12/07/17 06:10 130 130/88 12/07/17 04:00 97.3 130 22 130/88 (102) 99 97.3 12/07/17 04:00 130 12/07/17 01:26 128 21 97 Nasal Cannula 2.0 28 12/07/17 00:00 97.7 130 20 120/80 (93) 98 97.7 12/07/17 00:00 129 12/06/17 23:54 128 20 99 Nasal Cannula 2.0 28 12/06/17 22:54 129 22 99 Nasal Cannula 2.0 28 12/06/17 21:18 130 124/86 12/06/17 21:00 Nasal Cannula 2.0 12/06/17 20:00 98.1 130 18 124/86 (99) 100 98.1 12/06/17 20:00 130 12/06/17 19:46 128 20 99 Nasal Cannula 2.0 28 12/06/17 19:36 128 21 98 Nasal Cannula 2.0 28 12/06/17 16:00 131 12/06/17 16:00 97.5 130 20 119/76 (90) 100 97.5 Intake and Output 12/06/17 12/07/17 19:00 07:00 Intake Total 390 ml 132.9 ml Output Total 450 ml 450 ml Balance -60 ml -317.1 ml Intake Oral 390 ml IV Total 132.9 ml Output Urine Total 450 ml 450 ml # Bowel Movements 1 3 Laboratory Tests 12/07/17 02:20: Urine Color Pale yellow, Urine Appearance Slightly cloudy, Urine pH 5, Urine Specific [place] 1.010, Urine Protein 1+H, Urine Glucose (UA) Negative, Urine Ketones Negative, Urine Blood 4+H, Urine Nitrite PositiveH, Urine Bilirubin Negative, Urine Urobilinogen Normal, Urine Leukocyte Esterase 3+H, Urine RBC 5- 10H, Urine WBC 2-4, Urine Squamous Epithelial Cells Occasional, Urine Bacteria Occasional, Urine Yeast FewH 12/07/17 05:25: White Blood Count 4.2L, Red Blood Count 3.58L, Hemoglobin 10.2L, Hematocrit 32.2L, Mean Corpuscular Volume 90, Mean Corpuscular Hemoglobin 28.6, Mean Corpuscular Hemoglobin Concent 31.8L, Red Cell Distribution Width 15.7H, Platelet Count 123L, Mean Platelet Volume 6.5, Neutrophils (%) (Auto) 45.4, Lymphocytes (%) (Auto) 32.8, Monocytes (%) (Auto) 15.4H, Eosinophils (%) (Auto) 5.5H, Basophils (%) (Auto) 1.0, Prothrombin Time 34.1H, Prothromb Time International Ratio 3.5H, Sodium Level 144, Potassium Level 4.3, Chloride Level 110H, Carbon Dioxide Level 24, Anion Gap 10, Blood Urea Nitrogen 33H, Creatinine 2.2H, Estimat Glomerular Filtration Rate , Glucose Level 89, Uric Acid 7.1, Calcium Level 8.6, Phosphorus Level 3.4, Magnesium Level 1.6L, Total Bilirubin 0.6, Aspartate Amino Transf (AST/SGOT) 14L, Alanine Aminotransferase ( ALT/SGPT) 15, Alkaline Phosphatase 52, C-Reactive Protein, Quantitative 2.1H, Pro-B-Type Natriuretic Peptide 7194H, Total Protein 7.3, Albumin 2.9L, Globulin 4.4, Albumin/Globulin Ratio 0.7L Current Medications Medications (Trade) Dose Ordered Sig/Con Route PRN Reason Start Time Stop Time Status Last Admin Dose Admin Acetaminophen (Tylenol) 650 mg Q4H PRN ORAL Mild Pain (Pain Scale 1-3) 12/03/17 23:00 01/02/18 22:59 Budesonide (Pulmicort) 0.25 mg EVERY 12 HOURS HHN 12/04/17 09:00 01/03/18 08:59 12/07/17 09:43 Dextrose (Dextrose 50%) 25 ml STAT PRN IV Hypoglycemia 12/03/17 23:00 01/02/18 22:59 Dextrose (Dextrose 50%) 50 ml STAT PRN IV Hypoglycemia 12/03/17 23:00 01/02/18 22:59 Diltiazem HCl (Cardizem) 90 mg TID ORAL 12/07/17 09:00 01/06/18 08:59 12/07/17 13:53 Divalproex Sodium (Depakote ER) 250 mg EVERY 12 HOURS ORAL 12/04/17 09:00 01/03/18 08:59 12/07/17 09:24 Docusate Sodium (Colace) 100 mg TID ORAL 12/04/17 18:00 01/03/18 08:59 12/07/17 13:54 Famotidine (Pepcid) 20 mg BID ORAL 12/04/17 09:00 01/03/18 08:59 12/07/17 09:24 Folic Acid (Folate) 2 mg DAILY ORAL 12/06/17 13:00 01/05/18 12:59 12/07/17 09:21 Guaifenesin (Robitussin) 200 mg Q6H PRN PO cough & congestion 12/04/17 01:30 01/03/18 01:29 12/04/17 15:02 Ipratropium [place] (Atrovent) 500 mcg Q4H PRN HHN Shortness of Breath 12/06/17 10:00 12/11/17 09:59 Ipratropium [place] (Atrovent) 500 mcg Q6HRT HHN 12/06/17 13:00 12/11/17 12:59 12/07/17 13:16 Levetiracetam (Keppra) 500 mg Q12HR ORAL 12/04/17 09:00 01/03/18 08:59 12/07/17 09:24 Levothyroxine Sodium (Synthroid) 50 mcg DAILY@0630 ORAL 12/08/17 06:30 01/05/18 06:29 Metoprolol Tartrate (Lopressor) 50 mg Q8HR ORAL 12/04/17 06:00 01/03/18 05:59 12/07/17 13:53 Piperacillin Sod/ Tazobactam Sod 3.375 gm/Dextrose 110 ml @ 27.5 mls/hr Q12H IVPB 12/07/17 18:00 12/14/17 17:59 Tamsulosin HCl (Flomax) 0.4 mg BID ORAL 12/04/17 18:00 01/03/18 20:59 12/07/17 09:24 Zolpidem Tartrate (Ambien) 5 mg DAILYPRN PRN ORAL Insomnia 12/03/17 23:00 12/10/17 22:59 William Leroy MD Dec 07, 2017 14:55
--- NOTE | 2017-12-07 15:05 | Diagnostic Imaging Report ---
Indication: Abdominal distention Technique: Supine view of the abdomen Comparison: none Findings: Considerable gas is seen within small bowel loops which are nonetheless nondilated. The colon is unremarkable. There is a real finding of innumerable small soft tissue nodules throughout the subcutaneous fat. The bones are unremarkable Impression: No acute abdominal abnormality Unusual findings of diffuse nodularity of the subcutaneous fat. Correlate with clinical history and findings
[2017-12-07 16:00] VITALS: BP 104/79
[2017-12-07] MEDS ORDERED: Warfarin Sodium 3mg ORAL ONE (17:00)
--- NOTE | 2017-12-07 19:56 | General Progress Note ---
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 Depakote 250mg bid provide ro/st Subjective Date patient seen: Dec 07, 2017 Neurologic/Psychiatric: Reports: anxiety, depressed, emotional problems Allergies: Coded Allergies: MARYANA INHIBITORS (Unverified Allergy, Unknown, 01/31/14) ARB-ANGIOTENSIN RECEPTOR ANTAGONIST (Unverified Allergy, Unknown, 01/31/14) Subjective more alert Objective Last 24 Hour Vital Signs Date Time Temp Pulse Resp B/P (MAP) Pulse Ox O2 Delivery O2 Flow Rate FiO2 12/07/17 18:09 126 104/79 12/07/17 16:00 126 12/07/17 16:00 97.0 126 20 104/79 (87) 99 97.0 12/07/17 13:53 129 101/69 12/07/17 13:53 129 101/69 12/07/17 13:23 128 20 99 Nasal Cannula 2.0 28 12/07/17 13:15 129 20 98 Nasal Cannula 2.0 28 12/07/17 12:00 97.2 129 20 101/69 (80) 100 97.2 12/07/17 12:00 130 12/07/17 09:54 127 20 99 Nasal Cannula 2.0 28 12/07/17 09:43 128 20 99 Nasal Cannula 2.0 28 12/07/17 09:23 120 116/75 12/07/17 09:00 Nasal Cannula 2.0 12/07/17 08:31 127 20 99 Nasal Cannula 2.0 28 12/07/17 08:26 129 20 99 Nasal Cannula 2.0 28 12/07/17 08:00 97.5 120 20 116/75 (89) 99 97.5 12/07/17 08:00 128 12/07/17 06:10 130 130/88 12/07/17 04:00 97.3 130 22 130/88 (102) 99 97.3 12/07/17 04:00 130 12/07/17 01:26 128 21 97 Nasal Cannula 2.0 28 12/07/17 00:00 97.7 130 20 120/80 (93) 98 97.7 12/07/17 00:00 129 12/06/17 23:54 128 20 99 Nasal Cannula 2.0 28 12/06/17 22:54 129 22 99 Nasal Cannula 2.0 28 12/06/17 21:18 130 124/86 12/06/17 21:00 Nasal Cannula 2.0 12/06/17 20:00 98.1 130 18 124/86 (99) 100 98.1 12/06/17 20:00 130 Intake and Output 12/06/17 12/07/17 19:00 07:00 Intake Total 390 ml 132.9 ml Output Total 450 ml 450 ml Balance -60 ml -317.1 ml Intake Oral 390 ml IV Total 132.9 ml Output Urine Total 450 ml 450 ml # Bowel Movements 1 3 Laboratory Tests 12/07/17 02:20: Urine Color Pale yellow, Urine Appearance Slightly cloudy, Urine pH 5, Urine Specific [place] 1.010, Urine Protein 1+H, Urine Glucose (UA) Negative, Urine Ketones Negative, Urine Blood 4+H, Urine Nitrite PositiveH, Urine Bilirubin Negative, Urine Urobilinogen Normal, Urine Leukocyte Esterase 3+H, Urine RBC 5- 10H, Urine WBC 2-4, Urine Squamous Epithelial Cells Occasional, Urine Bacteria Occasional, Urine Yeast FewH 12/07/17 05:25: White Blood Count 4.2L, Red Blood Count 3.58L, Hemoglobin 10.2L, Hematocrit 32.2L, Mean Corpuscular Volume 90, Mean Corpuscular Hemoglobin 28.6, Mean Corpuscular Hemoglobin Concent 31.8L, Red Cell Distribution Width 15.7H, Platelet Count 123L, Mean Platelet Volume 6.5, Neutrophils (%) (Auto) 45.4, Lymphocytes (%) (Auto) 32.8, Monocytes (%) (Auto) 15.4H, Eosinophils (%) (Auto) 5.5H, Basophils (%) (Auto) 1.0, Prothrombin Time 34.1H, Prothromb Time International Ratio 3.5H, Sodium Level 144, Potassium Level 4.3, Chloride Level 110H, Carbon Dioxide Level 24, Anion Gap 10, Blood Urea Nitrogen 33H, Creatinine 2.2H, Estimat Glomerular Filtration Rate , Glucose Level 89, Uric Acid 7.1, Calcium Level 8.6, Phosphorus Level 3.4, Magnesium Level 1.6L, Total Bilirubin 0.6, Aspartate Amino Transf (AST/SGOT) 14L, Alanine Aminotransferase ( ALT/SGPT) 15, Alkaline Phosphatase 52, C-Reactive Protein, Quantitative 2.1H, Pro-B-Type Natriuretic Peptide 7194H, Total Protein 7.3, Albumin 2.9L, Globulin 4.4, Albumin/Globulin Ratio 0.7L Height (Feet): 6 Height (Inches): 0.00 Weight (Pounds): 218 General Appearance: no apparent distress, alert, confused Rufus Velasquez MD Dec 07, 2017 19:56
[2017-12-07 20:00] VITALS: BP 108/79
[2017-12-08] VITALS: BP 118/76
[2017-12-08] MEDS: Ipratropium 0.02% Inh Soln 2.5ml UD HHN SCH ×5 (01:00→19:15)
[2017-12-08 04:00] VITALS: BP 116/79
[2017-12-08] MEDS: Piperacillin/Tazobactam 3.375 GM in D5W 110 ML IVPB SCH ×2 (06:27→18:46)
[2017-12-08] MEDS: Metoprolol Tartrate 50mg tab ORAL SCH ×2 (06:27→13:49)
[2017-12-08 08:00] VITALS: BP 117/86
[2017-12-08 08:03] LABS: BASOPHILS % (AUTO) 0.8 % (0.0-2.0); EOSINOPHILS % (AUTO) 5.7 % (0.0-3.0); HEMATOCRIT 33.2 % (42.0-52.0); HEMOGLOBIN 10.9 G/DL (14.2-18.0); LYMPHOCYTES % (AUTO) 25.2 % (20.0-45.0); MEAN CORPUSCULAR VOLUME 90 FL (80-99); MONOCYTES % (AUTO) 13.1 % (1.0-10.0); NEUTROPHILS % (AUTO) 55.2 % (45.0-75.0); PLATELET COUNT 128 K/UL (150-450); WHITE BLOOD COUNT 4.1 K/UL (4.8-10.8)
[2017-12-08 08:13] LABS: INR 3.8 (0.9-1.1)
[2017-12-08] MEDS: Budesonide HHN 0.25mg/2ml ud HHN SCH ×2 (09:03→21:33)
[2017-12-08] MEDS: Docusate 100mg cap ORAL SCH ×3 (09:04→18:45)
[2017-12-08] MEDS: Tamsulosin 0.4mg cap ORAL SCH ×2 (09:04→18:45)
[2017-12-08] MEDS: dilTIAZem HCl 60mg tab ORAL SCH ×3 (09:04→18:45)
[2017-12-08] MEDS: Depakote ER 250mg tab ORAL SCH ×2 (09:05→21:13)
[2017-12-08 10:05] LABS: ALANINE AMINOTRANSFERASE 17 U/L (12-78); ALBUMIN/GLOBULIN RATIO 0.7 (1.0-2.7); ALKALINE PHOSPHATASE 54 U/L (46-116); ANION GAP 13 mmol/L (5-15); ASPARTATE AMINO TRANSFERASE 16 U/L (15-37); BILIRUBIN,TOTAL 0.4 MG/DL (0.2-1.0); BLOOD UREA NITROGEN 30 mg/dL (7-18); CALCIUM 8.7 MG/DL (8.5-10.1); CARBON DIOXIDE 21 MMOL/L (21-32); CHLORIDE 112 MMOL/L (98-107); CREATININE 2.1 MG/DL (0.55-1.30); POTASSIUM 4.5 MMOL/L (3.5-5.1); SODIUM 146 MMOL/L (136-145)
[2017-12-08 12:00] VITALS: BP 104/76
--- NOTE | 2017-12-08 12:29 | Nephrology Progress Note ---
Assessment/Plan Problem List: (1) Acute on chronic renal failure (2) Atrial fibrillation with tachycardic ventricular rate (3) Seizure disorder (4) Diabetic nephropathy (5) Hypothyroid Assessment: adjust synthroid dose Assessment Renal failure due to pre renal azotemia due to underlying CHF- Cr 2.1 Afib : heart rate remains high Cardiomyopathy Acute CHF others: Acute Asthma/copd exacerbation seizures DM Cerebrovascular accident with right hemiplegia. Congestive heart failure - diastolic with the preserved ejection fraction. Benign prostatic hypertrophy. h/o Pneumonia- SVT , At fib- on anti coag h/o DVT- h/o HypoThyroidism h/o Gout Dementia HTN Plan HR management per Network Technical Analyst One dose digoxin PO now Optimize cardiac and pulmonary status monitor renal parameters- avoid nephrotoxics- flomax adjust bp meds check labs discussed with CASPER MCKEON: Nonobstructive stones within the left kidney. Questionable nonobstructive stone in the right kidney. Noncontrast CT May BE of benefit for confirmation. No evidence of obstructive nephropathy. Multiple bilateral renal cysts. Subjective Constitutional: Reports: weakness Objective Objective Last 24 Hour Vital Signs Date Time Temp Pulse Resp B/P (MAP) Pulse Ox O2 Delivery O2 Flow Rate FiO2 12/08/17 09:10 121 20 99 Nasal Cannula 2.0 28 12/08/17 09:04 127 117/86 12/08/17 09:03 127 20 98 Nasal Cannula 2.0 28 12/08/17 09:00 Nasal Cannula 2.0 12/08/17 08:00 97.5 128 20 117/86 (96) 100 97.5 12/08/17 08:00 128 12/08/17 07:56 129 20 99 Nasal Cannula 2.0 28 12/08/17 07:55 128 20 98 Nasal Cannula 2.0 28 12/08/17 07:50 98 Nasal Cannula 2.0 28 12/08/17 07:48 Nasal Cannula 2.0 28 12/08/17 06:27 126 116/79 12/08/17 04:00 97.9 125 22 116/79 (91) 97.9 12/08/17 04:00 126 12/08/17 01:30 Nasal Cannula 2.0 28 12/08/17 01:29 126 Nasal Cannula 2.0 28 12/08/17 00:00 97.3 124 20 118/76 (90) 70 97.3 12/08/17 00:00 125 12/07/17 22:00 126 108/79 12/07/17 21:00 Nasal Cannula 2.0 12/07/17 20:00 97.3 126 20 108/79 (89) 96 97.3 12/07/17 20:00 126 12/07/17 19:30 119 20 98 Nasal Cannula 2.0 28 12/07/17 19:30 120 20 99 Nasal Cannula 2.0 28 12/07/17 19:30 119 20 98 Nasal Cannula 2.0 28 12/07/17 19:30 120 20 99 Nasal Cannula 2.0 28 12/07/17 18:09 126 104/79 12/07/17 16:00 126 12/07/17 16:00 97.0 126 20 104/79 (87) 99 97.0 12/07/17 13:53 129 101/69 12/07/17 13:53 129 101/69 12/07/17 13:23 128 20 99 Nasal Cannula 2.0 28 12/07/17 13:15 129 20 98 Nasal Cannula 2.0 28 Intake and Output 12/07/17 12/08/17 19:00 07:00 Intake Total 45.8 ml Output Total 1400 ml Balance -1354.2 ml IV Total 45.8 ml Output Urine Total 1400 ml # Bowel Movements 2 Laboratory Tests 12/08/17 07:40: White Blood Count 4.1L, Red Blood Count 3.70L, Hemoglobin 10.9L, Hematocrit 33.2L, Mean Corpuscular Volume 90, Mean Corpuscular Hemoglobin 29.4, Mean Corpuscular Hemoglobin Concent 32.8, Red Cell Distribution Width 16.0H, Platelet Count 128L, Mean Platelet Volume 6.4L, Neutrophils (%) (Auto) 55.2, Lymphocytes (%) (Auto) 25.2, Monocytes (%) (Auto) 13.1H, Eosinophils (%) (Auto) 5.7H, Basophils (%) (Auto) 0.8, Prothrombin Time 37.1H, Prothromb Time International Ratio 3.8H, Sodium Level 146H, Potassium Level 4.5, Chloride Level 112H, Carbon Dioxide Level 21, Anion Gap 13, Blood Urea Nitrogen 30H, Creatinine 2.1H, Estimat Glomerular Filtration Rate , Glucose Level 85, Calcium Level 8.7, Total Bilirubin 0.4, Aspartate Amino Transf (AST/SGOT) 16, Alanine Aminotransferase (ALT/SGPT) 17, Alkaline Phosphatase 54, Total Protein 7.1, Albumin 3.0L, Globulin 4.1, Albumin/Globulin Ratio 0.7L Height (Feet): 6 Height (Inches): 0.00 Weight (Pounds): 218 General Appearance: no apparent distress Cardiovascular: tachycardia, arrhythmia Respiratory/Chest: decreased breath sounds Abdomen: soft Objective no change Isaias Noe MD Dec 08, 2017 12:29
--- NOTE | 2017-12-08 14:18 | GI Progress Note ---
Assessment/Plan Problems: (1) Encounter for PEG (percutaneous endoscopic gastrostomy) ICD Codes: Z43.1 - Encounter for attention to gastrostomy SNOMED: 071395211, 626504793 (2) Malnutrition ICD Codes: E46 - Unspecified protein-calorie malnutrition SNOMED: 69582415 (3) Electrolyte imbalance ICD Codes: E87.8 - Other disorders of electrolyte and fluid balance, not elsewhere classified SNOMED: 289315208 (4) Dysphagia ICD Codes: R13.10 - Dysphagia, unspecified SNOMED: 30070217, 747301264 (5) Dehydration ICD Codes: E86.0 - Dehydration SNOMED: 33669144 (6) L MCA subacute stroke Status: stable Status Narrative Discussed with Dr. Rashid. Assessment/Plan PEG scheduled for tomorrow. - NPO @ DC. - d/w with daughter, whom has agreed. - d/w with cardiac, whom has cleared patient for procedure - HOLD all blood thinners correct INR >> Vit K x1 KUB reviewed ppi folate fu labs The patient was seen and examined at bedside and all new and available data was reviewed in the patients chart. I agree with the above findings, impression and plan. (Patient seen earlier today. Signature stamp does not reflect patient encounter time.). - Anders Rashid MD Subjective Subjective limited Objective Last 24 Hour Vital Signs Date Time Temp Pulse Resp B/P (MAP) Pulse Ox O2 Delivery O2 Flow Rate FiO2 12/08/17 13:49 125 104/76 12/08/17 13:48 125 12/08/17 13:48 125 104/76 12/08/17 13:06 125 20 100 Nasal Cannula 2.0 12/08/17 12:58 127 20 97 Nasal Cannula 2.0 28 12/08/17 12:00 97.2 123 20 104/76 (85) 99 97.2 12/08/17 09:10 121 20 99 Nasal Cannula 2.0 28 12/08/17 09:04 127 117/86 12/08/17 09:03 127 20 98 Nasal Cannula 2.0 28 12/08/17 09:00 Nasal Cannula 2.0 12/08/17 08:00 97.5 128 20 117/86 (96) 100 97.5 12/08/17 08:00 128 12/08/17 07:56 129 20 99 Nasal Cannula 2.0 28 12/08/17 07:55 128 20 98 Nasal Cannula 2.0 28 12/08/17 07:50 98 Nasal Cannula 2.0 28 12/08/17 07:48 Nasal Cannula 2.0 28 12/08/17 06:27 126 116/79 12/08/17 04:00 97.9 125 22 116/79 (91) 97.9 12/08/17 04:00 126 12/08/17 01:30 Nasal Cannula 2.0 28 12/08/17 01:29 126 Nasal Cannula 2.0 28 12/08/17 00:00 97.3 124 20 118/76 (90) 70 97.3 12/08/17 00:00 125 12/07/17 22:00 126 108/79 12/07/17 21:00 Nasal Cannula 2.0 12/07/17 20:00 97.3 126 20 108/79 (89) 96 97.3 12/07/17 20:00 126 12/07/17 19:30 119 20 98 Nasal Cannula 2.0 28 12/07/17 19:30 120 20 99 Nasal Cannula 2.0 28 12/07/17 19:30 119 20 98 Nasal Cannula 2.0 28 12/07/17 19:30 120 20 99 Nasal Cannula 2.0 28 12/07/17 18:09 126 104/79 12/07/17 16:00 126 12/07/17 16:00 97.0 126 20 104/79 (87) 99 97.0 Intake and Output 12/07/17 12/08/17 19:00 07:00 Intake Total 45.8 ml Output Total 1400 ml Balance -1354.2 ml IV Total 45.8 ml Output Urine Total 1400 ml # Bowel Movements 2 Laboratory Tests Test 12/08/17 07:40 White Blood Count 4.1 K/UL (4.8-10.8) L Red Blood Count 3.70 M/UL (4.70-6.10) L Hemoglobin 10.9 G/DL (14.2-18.0) L Hematocrit 33.2 % (42.0-52.0) L Mean Corpuscular Volume 90 FL (80-99) Mean Corpuscular Hemoglobin 29.4 PG (27.0-31.0) Mean Corpuscular Hemoglobin Concent 32.8 G/DL (32.0-36.0) Red Cell Distribution Width 16.0 % (11.6-14.8) H Platelet Count 128 K/UL (150-450) L Mean Platelet Volume 6.4 FL (6.5-10.1) L Neutrophils (%) (Auto) 55.2 % (45.0-75.0) Lymphocytes (%) (Auto) 25.2 % (20.0-45.0) Monocytes (%) (Auto) 13.1 % (1.0-10.0) H Eosinophils (%) (Auto) 5.7 % (0.0-3.0) H Basophils (%) (Auto) 0.8 % (0.0-2.0) Prothrombin Time 37.1 SEC (9.30-11.50) H Prothromb Time International Ratio 3.8 (0.9-1.1) H Sodium Level 146 MMOL/L (136-145) H Potassium Level 4.5 MMOL/L (3.5-5.1) Chloride Level 112 MMOL/L (98-107) H Carbon Dioxide Level 21 MMOL/L (21-32) Anion Gap 13 mmol/L (5-15) Blood Urea Nitrogen 30 mg/dL (7-18) H Creatinine 2.1 MG/DL (0.55-1.30) H Estimat Glomerular Filtration Rate mL/min (>60) Glucose Level 85 MG/DL (74-106) Calcium Level 8.7 MG/DL (8.5-10.1) Total Bilirubin 0.4 MG/DL (0.2-1.0) Aspartate Amino Transf (AST/SGOT) 16 U/L (15-37) Alanine Aminotransferase (ALT/SGPT) 17 U/L (12-78) Alkaline Phosphatase 54 U/L (46-116) Total Protein 7.1 G/DL (6.4-8.2) Albumin 3.0 G/DL (3.4-5.0) L Globulin 4.1 g/dL Albumin/Globulin Ratio 0.7 (1.0-2.7) L Height (Feet): 6 Height (Inches): 0.00 Weight (Pounds): 218 General Appearance: alert Cardiovascular: normal rate Respiratory/Chest: normal breath sounds Abdominal Exam: normal bowel sounds, non tender, soft Thomas,My-Michele [employer] Dec 08, 2017 14:18
--- NOTE | 2017-12-08 14:47 | Pulmonology Progress Note ---
Assessment/Plan Assessment/Plan ASSESSMENT: The patient is an 82-year-old male with a [facility] resident with a history of chronic obstructive pulmonary disease, congestive heart failure, chronic kidney disease, dementia, prior cerebrovascular accident, and chronic atrial fibrillation, presenting with shortness of breath likely secondary to decompensated heart failure. He is also on Zosyn for possible aspiration and healthcare associated pneumonia. PROBLEM LIST: 1. Acute hypoxemic respiratory failure likely secondary to decompensated heart failure. 2. Bibasilar opacities, likely edema, possible aspiration. 3. Chronic obstructive pulmonary disease. 4. Congestive heart failure with acute decompensated heart failure. 5. Chronic atrial fibrillation. 6. Dementia. 7. Prior cerebrovascular accident. 8. Chronic kidney disease. 9. jail resident. 10. Dysphagia TREATMENT PLAN: 1. Optimize pulmonary hygiene/mobilize as tolerated. 2. PRN O2 3. ATROVENT only HHN's 4. Continue b.i.d. budesonide. 5. Continue Zosyn per ID. 6. Monitor volumes and renal function, PRN Diuretics 7. NPO, plan for PEG 8. CXR 9. DVT PROPHYLAXIS: A/C 10. The patient is Full Code, continue to discuss goals of care. Subjective Allergies: Coded Allergies: MARYANA INHIBITORS (Unverified Allergy, Unknown, 01/31/14) ARB-ANGIOTENSIN RECEPTOR ANTAGONIST (Unverified Allergy, Unknown, 01/31/14) Subjective AFcRVR, stable on RA to 2L, plan for PEG tommorrow Denies SOB, no cough, no wheezing, no Cp Objective Last 24 Hour Vital Signs Date Time Temp Pulse Resp B/P (MAP) Pulse Ox O2 Delivery O2 Flow Rate FiO2 12/08/17 13:49 125 104/76 12/08/17 13:48 125 12/08/17 13:48 125 104/76 12/08/17 13:06 125 20 100 Nasal Cannula 2.0 28 12/08/17 12:58 127 20 97 Nasal Cannula 2.0 28 12/08/17 12:00 127 12/08/17 12:00 97.2 123 20 104/76 (85) 99 97.2 12/08/17 09:10 121 20 99 Nasal Cannula 2.0 28 12/08/17 09:04 127 117/86 12/08/17 09:03 127 20 98 Nasal Cannula 2.0 28 12/08/17 09:00 Nasal Cannula 2.0 12/08/17 08:00 97.5 128 20 117/86 (96) 100 97.5 12/08/17 08:00 128 12/08/17 07:56 129 20 99 Nasal Cannula 2.0 28 12/08/17 07:55 128 20 98 Nasal Cannula 2.0 28 12/08/17 07:50 98 Nasal Cannula 2.0 28 12/08/17 07:48 Nasal Cannula 2.0 12/08/17 06:27 126 116/79 12/08/17 04:00 97.9 125 22 116/79 (91) 97.9 12/08/17 04:00 126 12/08/17 01:30 Nasal Cannula 2.0 28 12/08/17 01:29 126 Nasal Cannula 2.0 28 12/08/17 00:00 97.3 124 20 118/76 (90) 70 97.3 12/08/17 00:00 125 12/07/17 22:00 126 108/79 12/07/17 21:00 Nasal Cannula 2.0 12/07/17 20:00 97.3 126 20 108/79 (89) 96 97.3 12/07/17 20:00 126 12/07/17 19:30 119 20 98 Nasal Cannula 2.0 28 12/07/17 19:30 120 20 99 Nasal Cannula 2.0 28 12/07/17 19:30 119 20 98 Nasal Cannula 2.0 28 12/07/17 19:30 120 20 99 Nasal Cannula 2.0 28 12/07/17 18:09 126 104/79 12/07/17 16:00 126 12/07/17 16:00 97.0 126 20 104/79 (87) 99 97.0 Intake and Output 12/07/17 12/08/17 19:00 07:00 Intake Total 45.8 ml Output Total 1400 ml Balance -1354.2 ml IV Total 45.8 ml Output Urine Total 1400 ml # Bowel Movements 2 General Appearance: no acute distress HEENT: normocephalic, atraumatic, anicteric, mucous membranes moist Respiratory/Chest: chest wall non-tender, lungs clear, normal breath sounds, crackles/rales - @ bases Cardiovascular: irregularly irregular Abdomen: normal bowel sounds, soft, non tender, no organomegaly, non distended , no mass Extremities: no cyanosis, no clubbing, no edema Microbiology Date/Time Source Procedure Growth Status 12/07/17 13:00 Sputum Expectorated Gram Stain - Final Resulted 12/07/17 13:00 Sputum Expectorated Sputum Culture Pending Resulted 12/07/17 02:20 Urine,Clean Catch Urine Culture - Preliminary Resulted Laboratory Tests 12/08/17 07:40: White Blood Count 4.1L, Red Blood Count 3.70L, Hemoglobin 10.9L, Hematocrit 33.2L, Mean Corpuscular Volume 90, Mean Corpuscular Hemoglobin 29.4, Mean Corpuscular Hemoglobin Concent 32.8, Red Cell Distribution Width 16.0H, Platelet Count 128L, Mean Platelet Volume 6.4L, Neutrophils (%) (Auto) 55.2, Lymphocytes (%) (Auto) 25.2, Monocytes (%) (Auto) 13.1H, Eosinophils (%) (Auto) 5.7H, Basophils (%) (Auto) 0.8, Prothrombin Time 37.1H, Prothromb Time International Ratio 3.8H, Sodium Level 146H, Potassium Level 4.5, Chloride Level 112H, Carbon Dioxide Level 21, Anion Gap 13, Blood Urea Nitrogen 30H, Creatinine 2.1H, Estimat Glomerular Filtration Rate , Glucose Level 85, Calcium Level 8.7, Total Bilirubin 0.4, Aspartate Amino Transf (AST/SGOT) 16, Alanine Aminotransferase (ALT/SGPT) 17, Alkaline Phosphatase 54, Total Protein 7.1, Albumin 3.0L, Globulin 4.1, Albumin/Globulin Ratio 0.7L Current Medications Medications (Trade) Dose Ordered Sig/Con Route PRN Reason Start Time Stop Time Status Last Admin Dose Admin Acetaminophen (Tylenol) 650 mg Q4H PRN ORAL Mild Pain (Pain Scale 1-3) 12/03/17 23:00 01/02/18 22:59 Budesonide (Pulmicort) 0.25 mg EVERY 12 HOURS HHN 12/04/17 09:00 01/03/18 08:59 12/08/17 09:03 Dextrose (Dextrose 50%) 25 ml STAT PRN IV Hypoglycemia 12/03/17 23:00 01/02/18 22:59 Dextrose (Dextrose 50%) 50 ml STAT PRN IV Hypoglycemia 12/03/17 23:00 01/02/18 22:59 Diltiazem HCl (Cardizem) 90 mg TID ORAL 12/07/17 09:00 01/06/18 08:59 12/08/17 13:48 Divalproex Sodium (Depakote ER) 250 mg EVERY 12 HOURS ORAL 12/04/17 09:00 01/03/18 08:59 12/08/17 09:05 Docusate Sodium (Colace) 100 mg TID ORAL 12/04/17 18:00 01/03/18 08:59 12/08/17 13:49 Famotidine (Pepcid) 20 mg BID ORAL 12/04/17 09:00 01/03/18 08:59 12/08/17 09:04 Folic Acid (Folate) 2 mg DAILY ORAL 12/06/17 13:00 01/05/18 12:59 12/08/17 09:04 Guaifenesin (Robitussin) 200 mg Q6H PRN PO cough & congestion 12/04/17 01:30 01/03/18 01:29 12/04/17 15:02 Ipratropium [place] (Atrovent) 500 mcg Q4H PRN HHN Shortness of Breath 12/06/17 10:00 12/11/17 09:59 Ipratropium [place] (Atrovent) 500 mcg Q6HRT HHN 12/06/17 13:00 12/11/17 12:59 12/08/17 12:57 Levetiracetam (Keppra) 500 mg Q12HR ORAL 12/04/17 09:00 01/03/18 08:59 12/08/17 09:04 Levothyroxine Sodium (Synthroid) 50 mcg DAILY@0630 ORAL 12/08/17 06:30 01/05/18 06:29 12/08/17 06:27 Metoprolol Tartrate (Lopressor) 50 mg Q8HR ORAL 12/04/17 06:00 01/03/18 05:59 12/08/17 13:49 Mirtazapine (Remeron) 15 mg BEDTIME ORAL 12/08/17 21:00 01/07/18 20:59 Phytonadione 1 mg/ Dextrose 55.5 ml @ 222 mls/hr ONCE IVPB 12/08/17 16:00 12/08/17 18:00 Piperacillin Sod/ Tazobactam Sod 3.375 gm/Dextrose 110 ml @ 27.5 mls/hr Q12H IVPB 12/07/17 18:00 12/14/17 17:59 12/08/17 06:27 Tamsulosin HCl (Flomax) 0.4 mg BID ORAL 12/04/17 18:00 01/03/18 20:59 12/08/17 09:04 Zolpidem Tartrate (Ambien) 5 mg DAILYPRN PRN ORAL Insomnia 12/03/17 23:00 12/10/17 22:59 Luther Carroll MD Dec 08, 2017 14:47
--- NOTE | 2017-12-08 15:49 | General Progress Note ---
Assessment/Plan Assessment/Plan S: I am doing ok O: appears comfortable. improved sob. Dementia, limited source of information PHYSICAL EXAMINATION: HEAD AND NECK: Atraumatic and normocephalic. CHEST: Bronchial BS, No wheezing, HEART: S1 and S2. IRegular rate and rhythm. ABDOMEN: Soft. No organomegaly. MUSCULOSKELETAL: Positive for right hemiplegia at baseline. NEUROLOGY: The patient is awake. right side weakness, alert and oriented x2 at baseline. Meds: reviewed and reconciled including Christinasyn ASSESSMENT AND PLAN: 1. Acute Hypoxemic RF, CHF exacerbation vs Brochitis vs Chemical aspiration 2. Seizures d/o 2. Dementia. 3. Cerebrovascular accident with right hemiplegia. 4. Atrial fibrillation with controlled rate on therapeutic ATC. 5. Congestive heart failure - diastolic with the preserved ejection fraction. 6. Hypothyroidism. 7. Hypertension. 8. Acute on chronic renal failure, 9. Benign prostatic hypertrophy. 10. Gastrointestinal and deep vein thrombosis prophylaxes. 11. Dysphagi- Severe PLAN OF CARE: stable basal infiltrates, New asp ? Volume overload? Increased the Levothyroxin. current pulmonary mgt Proceed with PEG t placement failed V-swallow test Subjective Allergies: Coded Allergies: MARYANA INHIBITORS (Unverified Allergy, Unknown, 01/31/14) ARB-ANGIOTENSIN RECEPTOR ANTAGONIST (Unverified Allergy, Unknown, 01/31/14) Objective Last 24 Hour Vital Signs Date Time Temp Pulse Resp B/P (MAP) Pulse Ox O2 Delivery O2 Flow Rate FiO2 12/08/17 13:49 125 104/76 12/08/17 13:48 125 12/08/17 13:48 125 104/76 12/08/17 13:06 125 20 100 Nasal Cannula 2.0 28 12/08/17 12:58 127 20 97 Nasal Cannula 2.0 28 12/08/17 12:00 127 12/08/17 12:00 97.2 123 20 104/76 (85) 99 97.2 12/08/17 09:10 121 20 99 Nasal Cannula 2.0 28 12/08/17 09:04 127 117/86 12/08/17 09:03 127 20 98 Nasal Cannula 2.0 28 12/08/17 09:00 Nasal Cannula 2.0 12/08/17 08:00 97.5 128 20 117/86 (96) 100 97.5 12/08/17 08:00 128 12/08/17 07:56 129 20 99 Nasal Cannula 2.0 28 12/08/17 07:55 128 20 98 Nasal Cannula 2.0 28 12/08/17 07:50 98 Nasal Cannula 2.0 28 12/08/17 07:48 Nasal Cannula 2.0 28 12/08/17 06:27 126 116/79 12/08/17 04:00 97.9 125 22 116/79 (91) 97.9 12/08/17 04:00 126 12/08/17 01:30 Nasal Cannula 2.0 28 12/08/17 01:29 126 Nasal Cannula 2.0 28 12/08/17 00:00 97.3 124 20 118/76 (90) 70 97.3 12/08/17 00:00 125 12/07/17 22:00 126 108/79 12/07/17 21:00 Nasal Cannula 2.0 12/07/17 20:00 97.3 126 20 108/79 (89) 96 97.3 12/07/17 20:00 126 12/07/17 19:30 119 20 98 Nasal Cannula 2.0 28 12/07/17 19:30 120 20 99 Nasal Cannula 2.0 28 12/07/17 19:30 119 20 98 Nasal Cannula 2.0 28 12/07/17 19:30 120 20 99 Nasal Cannula 2.0 28 12/07/17 18:09 126 104/79 12/07/17 16:00 126 12/07/17 16:00 97.0 126 20 104/79 (87) 99 97.0 Intake and Output 12/07/17 12/08/17 19:00 07:00 Intake Total 45.8 ml Output Total 1400 ml Balance -1354.2 ml IV Total 45.8 ml Output Urine Total 1400 ml # Bowel Movements 2 Laboratory Tests 12/08/17 07:40: White Blood Count 4.1L, Red Blood Count 3.70L, Hemoglobin 10.9L, Hematocrit 33.2L, Mean Corpuscular Volume 90, Mean Corpuscular Hemoglobin 29.4, Mean Corpuscular Hemoglobin Concent 32.8, Red Cell Distribution Width 16.0H, Platelet Count 128L, Mean Platelet Volume 6.4L, Neutrophils (%) (Auto) 55.2, Lymphocytes (%) (Auto) 25.2, Monocytes (%) (Auto) 13.1H, Eosinophils (%) (Auto) 5.7H, Basophils (%) (Auto) 0.8, Prothrombin Time 37.1H, Prothromb Time International Ratio 3.8H, Sodium Level 146H, Potassium Level 4.5, Chloride Level 112H, Carbon Dioxide Level 21, Anion Gap 13, Blood Urea Nitrogen 30H, Creatinine 2.1H, Estimat Glomerular Filtration Rate , Glucose Level 85, Calcium Level 8.7, Total Bilirubin 0.4, Aspartate Amino Transf (AST/SGOT) 16, Alanine Aminotransferase (ALT/SGPT) 17, Alkaline Phosphatase 54, Total Protein 7.1, Albumin 3.0L, Globulin 4.1, Albumin/Globulin Ratio 0.7L Height (Feet): 6 Height (Inches): 0.00 Weight (Pounds): 218 Ondina Geiger MD Dec 08, 2017 15:49
[2017-12-08 16:00] VITALS: BP 122/89
[2017-12-08] MEDS ORDERED: Phytonadione 1 MG in D5W 55 ML IVPB SCH (16:00)
--- NOTE | 2017-12-08 19:38 | Cardiology Progress Note ---
Assessment/Plan Assessment/Plan 1. Permanent atrial fibrillation with RVR, increase metoprolol to 200mg bid, diltiazem at maximum, continue warfarin, INR at super-therapeutic level, echo shows borderline LVEF likely due to atrial fibrillation. May add digoxin if HR still high. If refractory with AV rajinder agents, may need AV rajinder ablation and pacemaker implant. 2. Possible chronic HFpEF due to atrial fibrillation. 3. Hypotension, resolved. 4. Hypothyroidism 5. Anemia 6. Hx of CVA Subjective Subjective Atrial fibrillation with rapid ventricular response at 126. Objective Last 24 Hour Vital Signs Date Time Temp Pulse Resp B/P (MAP) Pulse Ox O2 Delivery O2 Flow Rate FiO2 12/08/17 19:25 127 20 99 Nasal Cannula 2.0 28 12/08/17 19:15 97 Nasal Cannula 2.0 28 12/08/17 19:15 125 20 97 Nasal Cannula 2.0 28 12/08/17 19:15 Nasal Cannula 2.0 28 12/08/17 18:45 120 122/89 12/08/17 16:00 97.0 120 20 122/89 (100) 98 97.0 12/08/17 16:00 126 12/08/17 13:49 125 104/76 12/08/17 13:48 125 12/08/17 13:48 125 104/76 12/08/17 13:06 125 20 100 Nasal Cannula 2.0 12/08/17 12:58 127 20 97 Nasal Cannula 2.0 28 12/08/17 12:00 127 12/08/17 12:00 97.2 123 20 104/76 (85) 99 97.2 12/08/17 09:10 121 20 99 Nasal Cannula 2.0 12/08/17 09:04 127 117/86 12/08/17 09:03 127 20 98 Nasal Cannula 2.0 28 12/08/17 09:00 Nasal Cannula 2.0 12/08/17 08:00 97.5 128 20 117/86 (96) 100 97.5 12/08/17 08:00 128 12/08/17 07:56 129 20 99 Nasal Cannula 2.0 28 12/08/17 07:55 128 20 98 Nasal Cannula 2.0 28 12/08/17 07:50 98 Nasal Cannula 2.0 28 12/08/17 07:48 Nasal Cannula 2.0 28 12/08/17 06:27 126 116/79 12/08/17 04:00 97.9 125 22 116/79 (91) 97.9 12/08/17 04:00 126 12/08/17 01:30 Nasal Cannula 2.0 28 12/08/17 01:29 126 Nasal Cannula 2.0 28 12/08/17 00:00 97.3 124 20 118/76 (90) 70 97.3 12/08/17 00:00 125 12/07/17 22:00 126 108/79 12/07/17 21:00 Nasal Cannula 2.0 12/07/17 20:00 97.3 126 20 108/79 (89) 96 97.3 12/07/17 20:00 126 Intake and Output 12/07/17 12/08/17 19:00 07:00 Intake Total 45.8 ml Output Total 1400 ml Balance -1354.2 ml IV Total 45.8 ml Output Urine Total 1400 ml # Bowel Movements 2 2D Echo: EF 50%, mod LVH, RVSp 53 mmHg, Grade I LVDD, Mod DE/MR, Small Nellie Eff. Laboratory Tests Test 12/08/17 07:40 White Blood Count 4.1 K/UL (4.8-10.8) L Red Blood Count 3.70 M/UL (4.70-6.10) L Hemoglobin 10.9 G/DL (14.2-18.0) L Hematocrit 33.2 % (42.0-52.0) L Mean Corpuscular Volume 90 FL (80-99) Mean Corpuscular Hemoglobin 29.4 PG (27.0-31.0) Mean Corpuscular Hemoglobin Concent 32.8 G/DL (32.0-36.0) Red Cell Distribution Width 16.0 % (11.6-14.8) H Platelet Count 128 K/UL (150-450) L Mean Platelet Volume 6.4 FL (6.5-10.1) L Neutrophils (%) (Auto) 55.2 % (45.0-75.0) Lymphocytes (%) (Auto) 25.2 % (20.0-45.0) Monocytes (%) (Auto) 13.1 % (1.0-10.0) H Eosinophils (%) (Auto) 5.7 % (0.0-3.0) H Basophils (%) (Auto) 0.8 % (0.0-2.0) Prothrombin Time 37.1 SEC (9.30-11.50) H Prothromb Time International Ratio 3.8 (0.9-1.1) H Sodium Level 146 MMOL/L (136-145) H Potassium Level 4.5 MMOL/L (3.5-5.1) Chloride Level 112 MMOL/L (98-107) H Carbon Dioxide Level 21 MMOL/L (21-32) Anion Gap 13 mmol/L (5-15) Blood Urea Nitrogen 30 mg/dL (7-18) H Creatinine 2.1 MG/DL (0.55-1.30) H Estimat Glomerular Filtration Rate mL/min (>60) Glucose Level 85 MG/DL (74-106) Calcium Level 8.7 MG/DL (8.5-10.1) Total Bilirubin 0.4 MG/DL (0.2-1.0) Aspartate Amino Transf (AST/SGOT) 16 U/L (15-37) Alanine Aminotransferase (ALT/SGPT) 17 U/L (12-78) Alkaline Phosphatase 54 U/L (46-116) Total Protein 7.1 G/DL (6.4-8.2) Albumin 3.0 G/DL (3.4-5.0) L Globulin 4.1 g/dL Albumin/Globulin Ratio 0.7 (1.0-2.7) L Microbiology Date/Time Source Procedure Growth Status 12/07/17 13:00 Sputum Expectorated Gram Stain - Final Resulted 12/07/17 13:00 Sputum Expectorated Sputum Culture Pending Resulted 12/07/17 02:20 Urine,Clean Catch Urine Culture - Preliminary Resulted Objective HEENT: Atraumatic and normocephalic. Anicteric. Pupils are equal, round, and reactive to light and accommodation. Extraocular muscles intact. NECK: JVP is less than 5 cm. No carotid bruit. Carotid upstrokes 2+ bilaterally. CARDIOVASCULAR SYSTEM: Normal S1, S2. Irregularly irregular rhythm. Tachycardic, No murmurs, gallops, or rubs. PMI is at fourth intercostal space at midclavicular line. LUNGS: Clear to auscultation bilaterally. ABDOMEN: Soft, nontender, and nondistended. No hepatosplenomegaly. Positive bowel sounds. EXTREMITIES: No evidence of edema, clubbing, or cyanosis. Tj Crespo MD Dec 08, 2017 19:38
[2017-12-08 20:00] VITALS: BP 112/97
[2017-12-08] MEDS ORDERED: D5 1/2NS 1,000 ML IV SCH (20:00)
--- NOTE | 2017-12-08 21:51 | Infectious Diseases Prog Note ---
Assessment/Plan Problems: (1) HCAP (healthcare-associated pneumonia) Assessment & Plan: with basal infiltrated , continue zosyn empirically for 5-7 days pending sputum culture, monitor CXR. aspiration precaution , keep HOB> 30 degree all the time (2) Acute on chronic renal insufficiency Assessment & Plan: avoid nephrotoxics, monitor renal function , renal is following (3) At high risk for aspiration Assessment & Plan: aspiration precaution, keep HOB > 30 Degree all the time (4) Acute CHF Assessment & Plan: with dyspnea continue diuresis , monitor daily weight , fluids restriction (5) COPD (chronic obstructive pulmonary disease) Assessment & Plan: with acute exacerbation due to the above, continue antibiotics and nebulizers Subjective Constitutional: Reports: no symptoms HEENT: Reports: no symptoms Respiratory: Reports: dry cough Breasts: Reports: no symptoms Cardiovascular: Reports: no symptoms Gastrointestinal/Abdominal: Reports: no symptoms Genitourinary: Reports: no symptoms Neurologic: Reports: no symptoms Psychiatric: Reports: no symptoms Skin: Reports: no symptoms Endocrine: Reports: no symptoms Hematologic: Reports: no symptoms Musculoskeletal: Reports: no symptoms Allergies: Coded Allergies: MARYANA INHIBITORS (Unverified Allergy, Unknown, 01/31/14) ARB-ANGIOTENSIN RECEPTOR ANTAGONIST (Unverified Allergy, Unknown, 01/31/14) Subjective he still has cough and phlegm but less than before, can breath better Objective Vital Signs Last 24 Hour Vital Signs Date Time Temp Pulse Resp B/P (MAP) Pulse Ox O2 Delivery O2 Flow Rate FiO2 12/08/17 21:41 126 18 98 Nasal Cannula 2.0 12/08/17 21:32 123 18 94 Nasal Cannula 2.0 12/08/17 19:25 127 20 99 Nasal Cannula 2.0 28 12/08/17 19:15 97 Nasal Cannula 2.0 28 12/08/17 19:15 125 20 97 Nasal Cannula 2.0 28 12/08/17 19:15 Nasal Cannula 2.0 28 12/08/17 18:45 120 122/89 12/08/17 16:00 97.0 120 20 122/89 (100) 98 97.0 12/08/17 16:00 126 12/08/17 13:49 125 104/76 12/08/17 13:48 125 12/08/17 13:48 125 104/76 12/08/17 13:06 125 20 100 Nasal Cannula 2.0 28 12/08/17 12:58 127 20 97 Nasal Cannula 2.0 28 12/08/17 12:00 127 12/08/17 12:00 97.2 123 20 104/76 (85) 99 97.2 12/08/17 09:10 121 20 99 Nasal Cannula 2.0 28 12/08/17 09:04 127 117/86 12/08/17 09:03 127 20 98 Nasal Cannula 2.0 28 12/08/17 09:00 Nasal Cannula 2.0 12/08/17 08:00 97.5 128 20 117/86 (96) 100 97.5 12/08/17 08:00 128 12/08/17 07:56 129 20 99 Nasal Cannula 2.0 28 12/08/17 07:55 128 20 98 Nasal Cannula 2.0 28 12/08/17 07:50 98 Nasal Cannula 2.0 28 12/08/17 07:48 Nasal Cannula 2.0 28 12/08/17 06:27 126 116/79 12/08/17 04:00 97.9 125 22 116/79 (91) 97.9 12/08/17 04:00 126 12/08/17 01:30 Nasal Cannula 2.0 28 12/08/17 01:29 126 Nasal Cannula 2.0 28 12/08/17 00:00 97.3 124 20 118/76 (90) 70 97.3 12/08/17 00:00 125 12/07/17 22:00 126 108/79 Height (Feet): 6 Height (Inches): 0.00 Weight (Pounds): 218 General Appearance: WD/WN, no acute distress HEENT: normocephalic, atraumatic, anicteric, mucous membranes moist, EOMI, pharynx normal, supple, no JVD Respiratory/Chest: chest wall non-tender, no respiratory distress, no accessory muscle use, decreased breath sounds, crackles/rales Cardiovascular: normal peripheral pulses, normal rate, regular rhythm, no gallop/murmur, no JVD Abdomen: normal bowel sounds, soft, non tender, no organomegaly, non distended , no mass, no scars Genitourinary: normal external genitalia Extremities: no cyanosis, no clubbing Skin: no rash, no lesions, no ulcers Neurologic/Psychiatric: alert, oriented x 3, responsive Lymphatic: no neck adenopathy, no groin adenopathy Microbiology Date/Time Source Procedure Growth Status 12/07/17 13:00 Sputum Expectorated Gram Stain - Final Resulted 12/07/17 13:00 Sputum Expectorated Sputum Culture Pending Resulted 12/07/17 02:20 Urine,Clean Catch Urine Culture - Preliminary Resulted Laboratory Tests Test 12/08/17 07:40 White Blood Count 4.1 K/UL (4.8-10.8) L Red Blood Count 3.70 M/UL (4.70-6.10) L Hemoglobin 10.9 G/DL (14.2-18.0) L Hematocrit 33.2 % (42.0-52.0) L Mean Corpuscular Volume 90 FL (80-99) Mean Corpuscular Hemoglobin 29.4 PG (27.0-31.0) Mean Corpuscular Hemoglobin Concent 32.8 G/DL (32.0-36.0) Red Cell Distribution Width 16.0 % (11.6-14.8) H Platelet Count 128 K/UL (150-450) L Mean Platelet Volume 6.4 FL (6.5-10.1) L Neutrophils (%) (Auto) 55.2 % (45.0-75.0) Lymphocytes (%) (Auto) 25.2 % (20.0-45.0) Monocytes (%) (Auto) 13.1 % (1.0-10.0) H Eosinophils (%) (Auto) 5.7 % (0.0-3.0) H Basophils (%) (Auto) 0.8 % (0.0-2.0) Prothrombin Time 37.1 SEC (9.30-11.50) H Prothromb Time International Ratio 3.8 (0.9-1.1) H Sodium Level 146 MMOL/L (136-145) H Potassium Level 4.5 MMOL/L (3.5-5.1) Chloride Level 112 MMOL/L (98-107) H Carbon Dioxide Level 21 MMOL/L (21-32) Anion Gap 13 mmol/L (5-15) Blood Urea Nitrogen 30 mg/dL (7-18) H Creatinine 2.1 MG/DL (0.55-1.30) H Estimat Glomerular Filtration Rate mL/min (>60) Glucose Level 85 MG/DL (74-106) Calcium Level 8.7 MG/DL (8.5-10.1) Total Bilirubin 0.4 MG/DL (0.2-1.0) Aspartate Amino Transf (AST/SGOT) 16 U/L (15-37) Alanine Aminotransferase (ALT/SGPT) 17 U/L (12-78) Alkaline Phosphatase 54 U/L (46-116) Total Protein 7.1 G/DL (6.4-8.2) Albumin 3.0 G/DL (3.4-5.0) L Globulin 4.1 g/dL Albumin/Globulin Ratio 0.7 (1.0-2.7) L Current Medications Medications (Trade) Dose Ordered Sig/Con Route PRN Reason Start Time Stop Time Status Last Admin Dose Admin Acetaminophen (Tylenol) 650 mg Q4H PRN ORAL Mild Pain (Pain Scale 1-3) 12/03/17 23:00 01/02/18 22:59 Budesonide (Pulmicort) 0.25 mg EVERY 12 HOURS HHN 12/04/17 09:00 01/03/18 08:59 12/08/17 21:33 Dextrose (Dextrose 50%) 25 ml STAT PRN IV Hypoglycemia 12/03/17 23:00 01/02/18 22:59 Dextrose (Dextrose 50%) 50 ml STAT PRN IV Hypoglycemia 12/03/17 23:00 01/02/18 22:59 Dextrose/Sodium Chloride 1,000 ml @ 100 mls/hr Q10H IV 12/08/17 20:00 01/07/18 19:59 Diltiazem HCl (Cardizem) 90 mg TID ORAL 12/07/17 09:00 01/06/18 08:59 12/08/17 18:45 Divalproex Sodium (Depakote ER) 250 mg EVERY 12 HOURS ORAL 12/04/17 09:00 01/03/18 08:59 12/08/17 21:13 Docusate Sodium (Colace) 100 mg TID ORAL 12/04/17 18:00 01/03/18 08:59 12/08/17 18:45 Famotidine (Pepcid) 20 mg BID ORAL 12/04/17 09:00 01/03/18 08:59 12/08/17 18:45 Folic Acid (Folate) 2 mg DAILY ORAL 12/06/17 13:00 01/05/18 12:59 12/08/17 09:04 Guaifenesin (Robitussin) 200 mg Q6H PRN PO cough & congestion 12/04/17 01:30 01/03/18 01:29 12/04/17 15:02 Ipratropium [place] (Atrovent) 500 mcg Q4H PRN HHN Shortness of Breath 12/06/17 10:00 12/11/17 09:59 Ipratropium [place] (Atrovent) 500 mcg Q6HRT HHN 12/06/17 13:00 12/11/17 12:59 12/08/17 19:15 Levetiracetam (Keppra) 500 mg Q12HR ORAL 12/04/17 09:00 01/03/18 08:59 12/08/17 21:14 Levothyroxine Sodium (Synthroid) 50 mcg DAILY@0630 ORAL 12/08/17 06:30 01/05/18 06:29 12/08/17 06:27 Metoprolol Tartrate (Lopressor) 200 mg BID ORAL 12/09/17 09:00 01/08/18 08:59 Mirtazapine (Remeron) 15 mg BEDTIME ORAL 12/08/17 21:00 01/07/18 20:59 12/08/17 21:25 Piperacillin Sod/ Tazobactam Sod 3.375 gm/Dextrose 110 ml @ 27.5 mls/hr Q12H IVPB 12/07/17 18:00 12/14/17 17:59 12/08/17 18:46 Sodium Chloride 1,000 ml @ 100 mls/hr Q10H IV 12/08/17 21:36 01/07/18 21:35 Tamsulosin HCl (Flomax) 0.4 mg BID ORAL 12/04/17 18:00 01/03/18 20:59 12/08/17 18:45 Zolpidem Tartrate (Ambien) 5 mg DAILYPRN PRN ORAL Insomnia 12/03/17 23:00 12/10/17 22:59 Lyssa Strong M.D. Dec 08, 2017 21:51
--- NOTE | 2017-12-08 23:05 | General Progress Note ---
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 Depakote 250mg bid provide ro/st add remeron the pt lacks capacity to make decisions Subjective Neurologic/Psychiatric: Reports: depressed Allergies: Coded Allergies: MARYANA INHIBITORS (Unverified Allergy, Unknown, 01/31/14) ARB-ANGIOTENSIN RECEPTOR ANTAGONIST (Unverified Allergy, Unknown, 01/31/14) Subjective the pt is more confused than baseline has not been eating unable to answer the questions Objective Last 24 Hour Vital Signs Date Time Temp Pulse Resp B/P (MAP) Pulse Ox O2 Delivery O2 Flow Rate FiO2 12/08/17 21:41 126 18 98 Nasal Cannula 2.0 28 12/08/17 21:32 123 18 94 Nasal Cannula 2.0 28 12/08/17 19:25 127 20 99 Nasal Cannula 2.0 28 12/08/17 19:15 97 Nasal Cannula 2.0 28 12/08/17 19:15 125 20 97 Nasal Cannula 2.0 28 12/08/17 19:15 Nasal Cannula 2.0 28 12/08/17 18:45 120 122/89 12/08/17 16:00 97.0 120 20 122/89 (100) 98 97.0 12/08/17 16:00 126 12/08/17 13:49 125 104/76 12/08/17 13:48 125 12/08/17 13:48 125 104/76 12/08/17 13:06 125 20 100 Nasal Cannula 2.0 12/08/17 12:58 127 20 97 Nasal Cannula 2.0 12/08/17 12:00 127 12/08/17 12:00 97.2 123 20 104/76 (85) 99 97.2 12/08/17 09:10 121 20 99 Nasal Cannula 2.0 28 12/08/17 09:04 127 117/86 12/08/17 09:03 127 20 98 Nasal Cannula 2.0 12/08/17 09:00 Nasal Cannula 2.0 12/08/17 08:00 97.5 128 20 117/86 (96) 100 97.5 12/08/17 08:00 128 12/08/17 07:56 129 20 99 Nasal Cannula 2.0 12/08/17 07:55 128 20 98 Nasal Cannula 2.0 12/08/17 07:50 98 Nasal Cannula 2.0 12/08/17 07:48 Nasal Cannula 2.0 28 12/08/17 06:27 126 116/79 12/08/17 04:00 97.9 125 22 116/79 (91) 97.9 12/08/17 04:00 126 12/08/17 01:30 Nasal Cannula 2.0 28 12/08/17 01:29 126 Nasal Cannula 2.0 28 12/08/17 00:00 97.3 124 20 118/76 (90) 70 97.3 12/08/17 00:00 125 Intake and Output 12/07/17 12/08/17 19:00 07:00 Intake Total 45.8 ml Output Total 1400 ml Balance -1354.2 ml IV Total 45.8 ml Output Urine Total 1400 ml # Bowel Movements 2 Laboratory Tests 12/08/17 07:40: White Blood Count 4.1L, Red Blood Count 3.70L, Hemoglobin 10.9L, Hematocrit 33.2L, Mean Corpuscular Volume 90, Mean Corpuscular Hemoglobin 29.4, Mean Corpuscular Hemoglobin Concent 32.8, Red Cell Distribution Width 16.0H, Platelet Count 128L, Mean Platelet Volume 6.4L, Neutrophils (%) (Auto) 55.2, Lymphocytes (%) (Auto) 25.2, Monocytes (%) (Auto) 13.1H, Eosinophils (%) (Auto) 5.7H, Basophils (%) (Auto) 0.8, Prothrombin Time 37.1H, Prothromb Time International Ratio 3.8H, Sodium Level 146H, Potassium Level 4.5, Chloride Level 112H, Carbon Dioxide Level 21, Anion Gap 13, Blood Urea Nitrogen 30H, Creatinine 2.1H, Estimat Glomerular Filtration Rate , Glucose Level 85, Calcium Level 8.7, Total Bilirubin 0.4, Aspartate Amino Transf (AST/SGOT) 16, Alanine Aminotransferase (ALT/SGPT) 17, Alkaline Phosphatase 54, Total Protein 7.1, Albumin 3.0L, Globulin 4.1, Albumin/Globulin Ratio 0.7L Height (Feet): 6 Height (Inches): 0.00 Weight (Pounds): 218 General Appearance: no apparent distress, alert, confused Rufus Velasquez MD Dec 08, 2017 23:05
[2017-12-09] VITALS: BP 125/91
[2017-12-09] MEDS: Ipratropium 0.02% Inh Soln 2.5ml UD HHN SCH ×4 (01:07→19:48)
[2017-12-09 04:00] VITALS: BP 131/86
[2017-12-09] MEDS: Piperacillin/Tazobactam 3.375 GM in D5W 110 ML IVPB SCH (06:01)
[2017-12-09 07:09] LABS: BASOPHILS % (AUTO) 0.7 % (0.0-2.0); EOSINOPHILS % (AUTO) 5.9 % (0.0-3.0); HEMOGLOBIN 11.7 G/DL (14.2-18.0); LYMPHOCYTES % (AUTO) 24.4 % (20.0-45.0); MEAN CORPUSCULAR VOLUME 90 FL (80-99); MONOCYTES % (AUTO) 13.3 % (1.0-10.0); NEUTROPHILS % (AUTO) 55.7 % (45.0-75.0); PLATELET COUNT 133 K/UL (150-450); RED CELL DISTRIBUTION WIDTH 16.1 % (11.6-14.8); WHITE BLOOD COUNT 4.6 K/UL (4.8-10.8)
[2017-12-09 07:35] LABS: INR 4.3 (0.9-1.1)
[2017-12-09 08:00] VITALS: BP 114/85
[2017-12-09 08:17] LABS: ALANINE AMINOTRANSFERASE 15 U/L (12-78); ALBUMIN 2.9 G/DL (3.4-5.0); ALBUMIN/GLOBULIN RATIO 0.7 (1.0-2.7); ALKALINE PHOSPHATASE 56 U/L (46-116); ANION GAP 9 mmol/L (5-15); ASPARTATE AMINO TRANSFERASE 15 U/L (15-37); BILIRUBIN,TOTAL 0.5 MG/DL (0.2-1.0); BLOOD UREA NITROGEN 28 mg/dL (7-18); CALCIUM 8.8 MG/DL (8.5-10.1); CARBON DIOXIDE 23 MMOL/L (21-32); CHLORIDE 111 MMOL/L (98-107); POTASSIUM 4.2 MMOL/L (3.5-5.1); SODIUM 143 MMOL/L (136-145)
[2017-12-09] MEDS: Budesonide HHN 0.25mg/2ml ud HHN SCH ×2 (08:55→22:01)
[2017-12-09] MEDS: dilTIAZem HCl 60mg tab ORAL SCH ×3 (09:00→17:41)
[2017-12-09] MEDS: Tamsulosin 0.4mg cap ORAL SCH ×2 (09:00→17:41)
[2017-12-09] MEDS: Docusate 100mg cap ORAL SCH ×3 (09:00→17:42)
[2017-12-09] MEDS: Depakote ER 250mg tab ORAL SCH ×2 (09:00→21:19)
--- NOTE | 2017-12-09 10:55 | GI Progress Note ---
Assessment/Plan Problems: (1) Encounter for PEG (percutaneous endoscopic gastrostomy) ICD Codes: Z43.1 - Encounter for attention to gastrostomy SNOMED: 488416553, 839326748 (2) Malnutrition ICD Codes: E46 - Unspecified protein-calorie malnutrition SNOMED: 35166360 (3) Electrolyte imbalance ICD Codes: E87.8 - Other disorders of electrolyte and fluid balance, not elsewhere classified SNOMED: 208607297 (4) Dysphagia ICD Codes: R13.10 - Dysphagia, unspecified SNOMED: 34000229, 379958433 (5) Dehydration ICD Codes: E86.0 - Dehydration SNOMED: 15596193 (6) L MCA subacute stroke Status: unchanged Status Narrative Discussed with Dr. Rashid. Assessment/Plan PEG canceled today due to elevated INR >> will reschedule for next Tuesday. - NPO @ [place] day prior procedure. - d/w with daughter, whom has agreed. - d/w with cardiac, whom has cleared patient for procedure - HOLD all blood thinners correct INR KUB reviewed ppi folate fu labs The patient was seen and examined at bedside and all new and available data was reviewed in the patients chart. I agree with the above findings, impression and plan. (Patient seen earlier today. Signature stamp does not reflect patient encounter time.). - Anders Rashid MD Subjective Subjective limited Objective Last 24 Hour Vital Signs Date Time Temp Pulse Resp B/P (MAP) Pulse Ox O2 Delivery O2 Flow Rate FiO2 12/09/17 09:00 Nasal Cannula 2.0 12/09/17 09:00 124 20 99 Nasal Cannula 2.0 28 12/09/17 08:55 123 18 99 Nasal Cannula 2.0 28 12/09/17 08:00 97.2 132 20 114/85 (95) 98 97.2 12/09/17 07:49 132 12/09/17 07:31 131 20 99 Nasal Cannula 2.0 28 12/09/17 07:29 Nasal Cannula 2.0 28 12/09/17 07:29 99 Nasal Cannula 2.0 28 12/09/17 07:28 129 20 99 Nasal Cannula 2.0 28 12/09/17 04:00 131 12/09/17 04:00 97.5 133 18 131/86 (101) 96 97.5 12/09/17 01:15 125 18 99 Nasal Cannula 2.0 28 12/09/17 01:05 126 18 98 Nasal Cannula 2.0 28 12/09/17 00:00 97.9 128 19 125/91 (102) 100 97.9 12/09/17 00:00 130 12/08/17 21:41 126 18 98 Nasal Cannula 2.0 28 12/08/17 21:32 123 18 94 Nasal Cannula 2.0 28 12/08/17 21:00 Nasal Cannula 2.0 12/08/17 20:00 127 12/08/17 20:00 98.1 128 18 112/97 (102) 97 98.1 12/08/17 19:25 127 20 99 Nasal Cannula 2.0 28 12/08/17 19:15 97 Nasal Cannula 2.0 28 12/08/17 19:15 125 20 97 Nasal Cannula 2.0 28 12/08/17 19:15 Nasal Cannula 2.0 28 12/08/17 18:45 120 122/89 12/08/17 16:00 97.0 120 20 122/89 (100) 98 97.0 12/08/17 16:00 126 12/08/17 13:49 125 104/76 12/08/17 13:48 125 12/08/17 13:48 125 104/76 12/08/17 13:06 125 20 100 Nasal Cannula 2.0 28 12/08/17 12:58 127 20 97 Nasal Cannula 2.0 28 12/08/17 12:00 127 12/08/17 12:00 97.2 123 20 104/76 (85) 99 97.2 Intake and Output 12/08/17 12/09/17 19:00 07:00 Output Total 900 ml Balance -900 ml Output Urine Total 900 ml # Bowel Movements 1 1 Laboratory Tests Test 12/09/17 06:00 White Blood Count 4.6 K/UL (4.8-10.8) L Red Blood Count 4.10 M/UL (4.70-6.10) L Hemoglobin 11.7 G/DL (14.2-18.0) L Hematocrit 37.0 % (42.0-52.0) L Mean Corpuscular Volume 90 FL (80-99) Mean Corpuscular Hemoglobin 28.5 PG (27.0-31.0) Mean Corpuscular Hemoglobin Concent 31.6 G/DL (32.0-36.0) L Red Cell Distribution Width 16.1 % (11.6-14.8) H Platelet Count 133 K/UL (150-450) L Mean Platelet Volume 7.1 FL (6.5-10.1) Neutrophils (%) (Auto) 55.7 % (45.0-75.0) Lymphocytes (%) (Auto) 24.4 % (20.0-45.0) Monocytes (%) (Auto) 13.3 % (1.0-10.0) H Eosinophils (%) (Auto) 5.9 % (0.0-3.0) H Basophils (%) (Auto) 0.7 % (0.0-2.0) Prothrombin Time 41.8 SEC (9.30-11.50) H Prothromb Time International Ratio 4.3 (0.9-1.1) H Activated Partial Thromboplast Time 55 SEC (23-33) H Sodium Level 143 MMOL/L (136-145) Potassium Level 4.2 MMOL/L (3.5-5.1) Chloride Level 111 MMOL/L (98-107) H Carbon Dioxide Level 23 MMOL/L (21-32) Anion Gap 9 mmol/L (5-15) Blood Urea Nitrogen 28 mg/dL (7-18) H Creatinine 2.0 MG/DL (0.55-1.30) H Estimat Glomerular Filtration Rate mL/min (>60) Glucose Level 73 MG/DL (74-106) L Uric Acid 7.0 MG/DL (2.6-7.2) Calcium Level 8.8 MG/DL (8.5-10.1) Phosphorus Level 3.0 MG/DL (2.5-4.9) Magnesium Level 1.8 MG/DL (1.8-2.4) Total Bilirubin 0.5 MG/DL (0.2-1.0) Aspartate Amino Transf (AST/SGOT) 15 U/L (15-37) Alanine Aminotransferase (ALT/SGPT) 15 U/L (12-78) Alkaline Phosphatase 56 U/L (46-116) Troponin I 0.033 ng/mL (0.000-0.056) Total Protein 7.3 G/DL (6.4-8.2) Albumin 2.9 G/DL (3.4-5.0) L Globulin 4.4 g/dL Albumin/Globulin Ratio 0.7 (1.0-2.7) L Digoxin Level 1.0 NG/ML (0.5-2.0) Height (Feet): 6 Height (Inches): 0.00 Weight (Pounds): 218 General Appearance: WD/WN, no apparent distress, alert Cardiovascular: normal rate Respiratory/Chest: normal breath sounds, no respiratory distress Abdominal Exam: normal bowel sounds, non tender, soft Extremities: non-tender Sydnee Thomas NP Dec 09, 2017 10:55
[2017-12-09 12:00] VITALS: BP 122/88
--- NOTE | 2017-12-09 12:01 | Nephrology Progress Note ---
Assessment/Plan Problem List: (1) Acute on chronic renal failure (2) Atrial fibrillation with tachycardic ventricular rate (3) Seizure disorder (4) Diabetic nephropathy (5) Hypothyroid Assessment: adjust synthroid dose Assessment Renal failure due to pre renal azotemia due to underlying CHF- Cr 2.1 Afib : heart rate remains high Cardiomyopathy Acute CHF others: Acute Asthma/copd exacerbation seizures DM Cerebrovascular accident with right hemiplegia. Congestive heart failure - diastolic with the preserved ejection fraction. Benign prostatic hypertrophy. h/o Pneumonia- SVT , At fib- on anti coag h/o DVT- h/o HypoThyroidism h/o Gout Dementia HTN Plan HR management per Vice President One more dose digoxin PO now Optimize cardiac and pulmonary status monitor renal parameters- avoid nephrotoxics- flomax adjust bp meds check labs discussed with CASPER MCKEON: Nonobstructive stones within the left kidney. Questionable nonobstructive stone in the right kidney. Noncontrast CT May BE of benefit for confirmation. No evidence of obstructive nephropathy. Multiple bilateral renal cysts. Subjective ROS Limited/Unobtainable: No Constitutional: Reports: malaise, weakness Objective Objective Last 24 Hour Vital Signs Date Time Temp Pulse Resp B/P (MAP) Pulse Ox O2 Delivery O2 Flow Rate FiO2 12/09/17 09:00 Nasal Cannula 2.0 12/09/17 09:00 124 20 99 Nasal Cannula 2.0 28 12/09/17 08:55 123 18 99 Nasal Cannula 2.0 28 12/09/17 08:00 97.2 132 20 114/85 (95) 98 97.2 12/09/17 07:49 132 12/09/17 07:31 131 20 99 Nasal Cannula 2.0 28 12/09/17 07:29 Nasal Cannula 2.0 28 12/09/17 07:29 99 Nasal Cannula 2.0 28 12/09/17 07:28 129 20 99 Nasal Cannula 2.0 28 12/09/17 04:00 131 12/09/17 04:00 97.5 133 18 131/86 (101) 96 97.5 12/09/17 01:15 125 18 99 Nasal Cannula 2.0 28 12/09/17 01:05 126 18 98 Nasal Cannula 2.0 28 12/09/17 00:00 97.9 128 19 125/91 (102) 100 97.9 12/09/17 00:00 130 9/13/18 21:41 126 18 98 Nasal Cannula 2.0 28 12/08/17 21:32 123 18 94 Nasal Cannula 2.0 28 12/08/17 21:00 Nasal Cannula 2.0 12/08/17 20:00 127 12/08/17 20:00 98.1 128 18 112/97 (102) 97 98.1 12/08/17 19:25 127 20 99 Nasal Cannula 2.0 28 12/08/17 19:15 97 Nasal Cannula 2.0 28 12/08/17 19:15 125 20 97 Nasal Cannula 2.0 28 12/08/17 19:15 Nasal Cannula 2.0 28 12/08/17 18:45 120 122/89 12/08/17 16:00 97.0 120 20 122/89 (100) 98 97.0 12/08/17 16:00 126 12/08/17 13:49 125 104/76 12/08/17 13:48 125 12/08/17 13:48 125 104/76 12/08/17 13:06 125 20 100 Nasal Cannula 2.0 28 12/08/17 12:58 127 20 97 Nasal Cannula 2.0 28 12/08/17 12:00 127 12/08/17 12:00 97.2 123 20 104/76 (85) 99 97.2 Intake and Output 12/08/17 12/09/17 19:00 07:00 Output Total 900 ml Balance -900 ml Output Urine Total 900 ml # Bowel Movements 1 1 Laboratory Tests 12/09/17 06:00: White Blood Count 4.6L, Red Blood Count 4.10L, Hemoglobin 11.7L, Hematocrit 37.0L, Mean Corpuscular Volume 90, Mean Corpuscular Hemoglobin 28.5, Mean Corpuscular Hemoglobin Concent 31.6L, Red Cell Distribution Width 16.1H, Platelet Count 133L, Mean Platelet Volume 7.1, Neutrophils (%) (Auto) 55.7, Lymphocytes (%) (Auto) 24.4, Monocytes (%) (Auto) 13.3H, Eosinophils (%) (Auto) 5.9H, Basophils (%) (Auto) 0.7, Prothrombin Time 41.8H, Prothromb Time International Ratio 4.3H, Activated Partial Thromboplast Time 55H, Sodium Level 143, Potassium Level 4.2, Chloride Level 111H, Carbon Dioxide Level 23, Anion Gap 9, Blood Urea Nitrogen 28H, Creatinine 2.0H, Estimat Glomerular Filtration Rate , Glucose Level 73L, Uric Acid 7.0, Calcium Level 8.8, Phosphorus Level 3.0 , Magnesium Level 1.8, Total Bilirubin 0.5, Aspartate Amino Transf (AST/SGOT) 15 , Alanine Aminotransferase (ALT/SGPT) 15, Alkaline Phosphatase 56, Troponin I 0.033, Total Protein 7.3, Albumin 2.9L, Globulin 4.4, Albumin/Globulin Ratio 0.7L, Digoxin Level 1.0 Height (Feet): 6 Height (Inches): 0.00 Weight (Pounds): 218 General Appearance: no apparent distress Cardiovascular: tachycardia Respiratory/Chest: decreased breath sounds Abdomen: distended Objective no change Isaias Noe MD Dec 09, 2017 12:01
--- NOTE | 2017-12-09 14:20 | Infectious Diseases Prog Note ---
Assessment/Plan Problems: (1) HCAP (healthcare-associated pneumonia) Assessment & Plan: with basal infiltrates, improved, S/P zosyn empirically for 6 days, sputum culture is negative so far , monitor CXR. aspiration precaution , keep HOB> 30 degree all the time (2) Acute on chronic renal insufficiency Assessment & Plan: avoid nephrotoxics, monitor renal function , renal is following (3) At high risk for aspiration Assessment & Plan: aspiration precaution, keep HOB > 30 Degree all the time (4) Acute CHF Assessment & Plan: with dyspnea continue diuresis , monitor daily weight , fluids restriction (5) COPD (chronic obstructive pulmonary disease) Assessment & Plan: with acute exacerbation due to the above, improving with antibiotics and nebulizers Subjective Constitutional: Reports: no symptoms HEENT: Reports: no symptoms Respiratory: Reports: dry cough Cardiovascular: Reports: no symptoms Gastrointestinal/Abdominal: Reports: no symptoms Genitourinary: Reports: no symptoms Neurologic: Reports: no symptoms Psychiatric: Reports: no symptoms Skin: Reports: no symptoms Endocrine: Reports: no symptoms Hematologic: Reports: no symptoms Musculoskeletal: Reports: no symptoms Allergies: Coded Allergies: MARYANA INHIBITORS (Unverified Allergy, Unknown, 01/31/14) ARB-ANGIOTENSIN RECEPTOR ANTAGONIST (Unverified Allergy, Unknown, 01/31/14) Subjective he still has cough less than before, non productive , breath better Objective Vital Signs Last 24 Hour Vital Signs Date Time Temp Pulse Resp B/P (MAP) Pulse Ox O2 Delivery O2 Flow Rate FiO2 12/09/17 13:22 129 18 99 Nasal Cannula 2.0 12/09/17 13:18 128 18 98 Nasal Cannula 2.0 12/09/17 12:47 135 122/88 12/09/17 12:45 135 12/09/17 09:00 Nasal Cannula 2.0 12/09/17 09:00 124 20 99 Nasal Cannula 2.0 28 12/09/17 08:55 123 18 99 Nasal Cannula 2.0 12/09/17 08:00 97.2 132 20 114/85 (95) 98 97.2 12/09/17 07:49 132 12/09/17 07:31 131 20 99 Nasal Cannula 2.0 12/09/17 07:29 Nasal Cannula 2.0 28 12/09/17 07:29 99 Nasal Cannula 2.0 12/09/17 07:28 129 20 99 Nasal Cannula 2.0 28 12/09/17 04:00 131 12/09/17 04:00 97.5 133 18 131/86 (101) 96 97.5 12/09/17 01:15 125 18 99 Nasal Cannula 2.0 28 12/09/17 01:05 126 18 98 Nasal Cannula 2.0 28 12/09/17 00:00 97.9 128 19 125/91 (102) 100 97.9 12/09/17 00:00 130 12/08/17 21:41 126 18 98 Nasal Cannula 2.0 28 12/08/17 21:32 123 18 94 Nasal Cannula 2.0 28 12/08/17 21:00 Nasal Cannula 2.0 12/08/17 20:00 127 12/08/17 20:00 98.1 128 18 112/97 (102) 97 98.1 12/08/17 19:25 127 20 99 Nasal Cannula 2.0 28 12/08/17 19:15 97 Nasal Cannula 2.0 28 12/08/17 19:15 125 20 97 Nasal Cannula 2.0 28 12/08/17 19:15 Nasal Cannula 2.0 28 12/08/17 18:45 120 122/89 12/08/17 16:00 97.0 120 20 122/89 (100) 98 97.0 12/08/17 16:00 126 Height (Feet): 6 Height (Inches): 0.00 Weight (Pounds): 218 General Appearance: WD/WN, no acute distress HEENT: normocephalic, atraumatic, anicteric, mucous membranes moist, PERRL Respiratory/Chest: chest wall non-tender, lungs clear, normal breath sounds, no respiratory distress, no accessory muscle use Cardiovascular: normal peripheral pulses, normal rate, regular rhythm, no gallop/murmur, no JVD Abdomen: normal bowel sounds, soft, non tender, no organomegaly, non distended , no mass, no scars Extremities: no cyanosis, no clubbing Skin: no rash, no lesions, no ulcers Neurologic/Psychiatric: alert, oriented x 3, responsive Lymphatic: no neck adenopathy, no groin adenopathy Musculoskeletal: normal muscle bulk, no effusion Microbiology Date/Time Source Procedure Growth Status 12/07/17 13:00 Sputum Expectorated Gram Stain - Final Resulted 12/07/17 13:00 Sputum Expectorated Sputum Culture Pending Resulted 12/07/17 06:20 Nasal Nares MRSA Culture - Final NO METHICILLIN RESISTANT STAPH AUREUS... Complete 12/07/17 02:20 Urine,Clean Catch Urine Culture - Preliminary YEAST Resulted 12/07/17 06:20 Rectum VRE Culture - Final NO VANCOMYCIN RESISTANT ENTEROCOCCUS ... Complete Laboratory Tests Test 12/09/17 06:00 White Blood Count 4.6 K/UL (4.8-10.8) L Red Blood Count 4.10 M/UL (4.70-6.10) L Hemoglobin 11.7 G/DL (14.2-18.0) L Hematocrit 37.0 % (42.0-52.0) L Mean Corpuscular Volume 90 FL (80-99) Mean Corpuscular Hemoglobin 28.5 PG (27.0-31.0) Mean Corpuscular Hemoglobin Concent 31.6 G/DL (32.0-36.0) L Red Cell Distribution Width 16.1 % (11.6-14.8) H Platelet Count 133 K/UL (150-450) L Mean Platelet Volume 7.1 FL (6.5-10.1) Neutrophils (%) (Auto) 55.7 % (45.0-75.0) Lymphocytes (%) (Auto) 24.4 % (20.0-45.0) Monocytes (%) (Auto) 13.3 % (1.0-10.0) H Eosinophils (%) (Auto) 5.9 % (0.0-3.0) H Basophils (%) (Auto) 0.7 % (0.0-2.0) Prothrombin Time 41.8 SEC (9.30-11.50) H Prothromb Time International Ratio 4.3 (0.9-1.1) H Activated Partial Thromboplast Time 55 SEC (23-33) H Sodium Level 143 MMOL/L (136-145) Potassium Level 4.2 MMOL/L (3.5-5.1) Chloride Level 111 MMOL/L (98-107) H Carbon Dioxide Level 23 MMOL/L (21-32) Anion Gap 9 mmol/L (5-15) Blood Urea Nitrogen 28 mg/dL (7-18) H Creatinine 2.0 MG/DL (0.55-1.30) H Estimat Glomerular Filtration Rate mL/min (>60) Glucose Level 73 MG/DL (74-106) L Uric Acid 7.0 MG/DL (2.6-7.2) Calcium Level 8.8 MG/DL (8.5-10.1) Phosphorus Level 3.0 MG/DL (2.5-4.9) Magnesium Level 1.8 MG/DL (1.8-2.4) Total Bilirubin 0.5 MG/DL (0.2-1.0) Aspartate Amino Transf (AST/SGOT) 15 U/L (15-37) Alanine Aminotransferase (ALT/SGPT) 15 U/L (12-78) Alkaline Phosphatase 56 U/L (46-116) Troponin I 0.033 ng/mL (0.000-0.056) Total Protein 7.3 G/DL (6.4-8.2) Albumin 2.9 G/DL (3.4-5.0) L Globulin 4.4 g/dL Albumin/Globulin Ratio 0.7 (1.0-2.7) L Digoxin Level 1.0 NG/ML (0.5-2.0) Current Medications Medications (Trade) Dose Ordered Sig/Con Route PRN Reason Start Time Stop Time Status Last Admin Dose Admin Acetaminophen (Tylenol) 650 mg Q4H PRN ORAL Mild Pain (Pain Scale 1-3) 12/03/17 23:00 01/02/18 22:59 Budesonide (Pulmicort) 0.25 mg EVERY 12 HOURS HHN 12/04/17 09:00 01/03/18 08:59 12/09/17 08:55 Dextrose (Dextrose 50%) 25 ml STAT PRN IV Hypoglycemia 12/03/17 23:00 01/02/18 22:59 Dextrose (Dextrose 50%) 50 ml STAT PRN IV Hypoglycemia 12/03/17 23:00 01/02/18 22:59 Diltiazem HCl (Cardizem) 90 mg TID ORAL 12/07/17 09:00 01/06/18 08:59 12/09/17 12:47 Divalproex Sodium (Depakote ER) 250 mg EVERY 12 HOURS ORAL 12/04/17 09:00 01/03/18 08:59 12/08/17 21:13 Docusate Sodium (Colace) 100 mg TID ORAL 12/04/17 18:00 01/03/18 08:59 12/08/17 18:45 Famotidine (Pepcid) 20 mg BID ORAL 12/04/17 09:00 01/03/18 08:59 12/08/17 18:45 Folic Acid (Folate) 2 mg DAILY ORAL 12/06/17 13:00 01/05/18 12:59 12/08/17 09:04 Guaifenesin (Robitussin) 200 mg Q6H PRN PO cough & congestion 12/04/17 01:30 01/03/18 01:29 12/04/17 15:02 Ipratropium [place] (Atrovent) 500 mcg Q4H PRN HHN Shortness of Breath 12/06/17 10:00 12/11/17 09:59 Ipratropium [place] (Atrovent) 500 mcg Q6HRT HHN 12/06/17 13:00 12/11/17 12:59 12/09/17 13:17 Levetiracetam (Keppra) 500 mg Q12HR ORAL 12/04/17 09:00 01/03/18 08:59 12/08/17 21:14 Levothyroxine Sodium (Synthroid) 50 mcg DAILY@0630 ORAL 12/08/17 06:30 01/05/18 06:29 12/09/17 06:01 Metoprolol Tartrate (Lopressor) 200 mg BID ORAL 12/09/17 09:00 01/08/18 08:59 Mirtazapine (Remeron) 15 mg BEDTIME ORAL 12/08/17 21:00 01/07/18 20:59 12/08/17 21:25 Piperacillin Sod/ Tazobactam Sod 3.375 gm/Dextrose 110 ml @ 27.5 mls/hr Q12H IVPB 12/07/17 18:00 12/14/17 17:59 12/09/17 06:01 Sodium Chloride 1,000 ml @ 100 mls/hr Q10H IV 12/08/17 21:36 01/07/18 21:35 12/09/17 08:04 Tamsulosin HCl (Flomax) 0.4 mg BID ORAL 12/04/17 18:00 01/03/18 20:59 12/08/17 18:45 Zolpidem Tartrate (Ambien) 5 mg DAILYPRN PRN ORAL Insomnia 12/03/17 23:00 12/10/17 22:59 Lyssa Strong M.D. Dec 09, 2017 14:20
--- NOTE | 2017-12-09 14:49 | Pulmonology Progress Note ---
Assessment/Plan Assessment/Plan ASSESSMENT: The patient is an 82-year-old male with a penitentiary resident with a history of chronic obstructive pulmonary disease, congestive heart failure, chronic kidney disease, dementia, prior cerebrovascular accident, and chronic atrial fibrillation, presenting with shortness of breath likely secondary to decompensated heart failure. He is also on Zosyn for possible aspiration and healthcare associated pneumonia. PROBLEM LIST: 1. Acute hypoxemic respiratory failure likely secondary to decompensated heart failure. 2. Bibasilar opacities, likely edema, possible aspiration. 3. Chronic obstructive pulmonary disease. 4. Congestive heart failure with acute decompensated heart failure. 5. Chronic atrial fibrillation. 6. Dementia. 7. Prior cerebrovascular accident. 8. Chronic kidney disease. 9. long-term resident. 10. Dysphagia TREATMENT PLAN: 1. Optimize pulmonary hygiene/mobilize as tolerated. 2. PRN O2 3. ATROVENT only HHN's 4. Continue b.i.d. budesonide. 5. Observe off Abx per ID 6. Monitor volumes and renal function, PRN Diuretics 7. NPO, PEG tuesday 8. CXR 9. DVT PROPHYLAXIS: A/C (held for PEG) 10. The patient is Full Code, continue to discuss goals of care. Subjective Allergies: Coded Allergies: MARYANA INHIBITORS (Unverified Allergy, Unknown, 01/31/14) ARB-ANGIOTENSIN RECEPTOR ANTAGONIST (Unverified Allergy, Unknown, 01/31/14) Subjective AFcRVR, stable on RA to 2L, PEG postponed 2/2 elevated INR Denies SOB, no cough, no wheezing, no Cp Objective Last 24 Hour Vital Signs Date Time Temp Pulse Resp B/P (MAP) Pulse Ox O2 Delivery O2 Flow Rate FiO2 12/09/17 13:22 129 18 99 Nasal Cannula 2.0 28 12/09/17 13:18 128 18 98 Nasal Cannula 2.0 28 12/09/17 12:47 135 122/88 12/09/17 12:45 135 12/09/17 12:00 98.1 135 20 122/88 (99) 99 98.1 12/09/17 09:00 Nasal Cannula 2.0 12/09/17 09:00 124 20 99 Nasal Cannula 2.0 12/09/17 08:55 123 18 99 Nasal Cannula 2.0 28 12/09/17 08:00 97.2 132 20 114/85 (95) 98 97.2 12/09/17 07:49 132 12/09/17 07:31 131 20 99 Nasal Cannula 2.0 28 12/09/17 07:29 Nasal Cannula 2.0 28 12/09/17 07:29 99 Nasal Cannula 2.0 28 12/09/17 07:28 129 20 99 Nasal Cannula 2.0 28 12/09/17 04:00 131 12/09/17 04:00 97.5 133 18 131/86 (101) 96 97.5 12/09/17 01:15 125 18 99 Nasal Cannula 2.0 28 12/09/17 01:05 126 18 98 Nasal Cannula 2.0 28 12/09/17 00:00 97.9 128 19 125/91 (102) 100 97.9 12/09/17 00:00 130 12/08/17 21:41 126 18 98 Nasal Cannula 2.0 28 12/08/17 21:32 123 18 94 Nasal Cannula 2.0 28 12/08/17 21:00 Nasal Cannula 2.0 12/08/17 20:00 127 12/08/17 20:00 98.1 128 18 112/97 (102) 97 98.1 12/08/17 19:25 127 20 99 Nasal Cannula 2.0 28 12/08/17 19:15 97 Nasal Cannula 2.0 28 12/08/17 19:15 125 20 97 Nasal Cannula 2.0 28 12/08/17 19:15 Nasal Cannula 2.0 28 12/08/17 18:45 120 122/89 12/08/17 16:00 97.0 120 20 122/89 (100) 98 97.0 12/08/17 16:00 126 Intake and Output 12/08/17 12/09/17 19:00 07:00 Output Total 900 ml Balance -900 ml Output Urine Total 900 ml # Bowel Movements 1 1 General Appearance: WD/WN, no acute distress HEENT: normocephalic, atraumatic, anicteric, mucous membranes moist Respiratory/Chest: chest wall non-tender, lungs clear, normal breath sounds, no respiratory distress, no accessory muscle use Cardiovascular: irregularly irregular Abdomen: normal bowel sounds, soft, non tender, no organomegaly, non distended , no mass Extremities: no cyanosis, no clubbing, no edema Microbiology Date/Time Source Procedure Growth Status 12/07/17 13:00 Sputum Expectorated Gram Stain - Final Resulted 12/07/17 13:00 Sputum Expectorated Sputum Culture Pending Resulted 12/07/17 06:20 Nasal Nares MRSA Culture - Final NO METHICILLIN RESISTANT STAPH AUREUS... Complete 12/07/17 02:20 Urine,Clean Catch Urine Culture - Preliminary YEAST Resulted 12/07/17 06:20 Rectum VRE Culture - Final NO VANCOMYCIN RESISTANT ENTEROCOCCUS ... Complete Laboratory Tests 12/09/17 06:00: White Blood Count 4.6L, Red Blood Count 4.10L, Hemoglobin 11.7L, Hematocrit 37.0L, Mean Corpuscular Volume 90, Mean Corpuscular Hemoglobin 28.5, Mean Corpuscular Hemoglobin Concent 31.6L, Red Cell Distribution Width 16.1H, Platelet Count 133L, Mean Platelet Volume 7.1, Neutrophils (%) (Auto) 55.7, Lymphocytes (%) (Auto) 24.4, Monocytes (%) (Auto) 13.3H, Eosinophils (%) (Auto) 5.9H, Basophils (%) (Auto) 0.7, Prothrombin Time 41.8H, Prothromb Time International Ratio 4.3H, Activated Partial Thromboplast Time 55H, Sodium Level 143, Potassium Level 4.2, Chloride Level 111H, Carbon Dioxide Level 23, Anion Gap 9, Blood Urea Nitrogen 28H, Creatinine 2.0H, Estimat Glomerular Filtration Rate , Glucose Level 73L, Uric Acid 7.0, Calcium Level 8.8, Phosphorus Level 3.0 , Magnesium Level 1.8, Total Bilirubin 0.5, Aspartate Amino Transf (AST/SGOT) 15 , Alanine Aminotransferase (ALT/SGPT) 15, Alkaline Phosphatase 56, Troponin I 0.033, Total Protein 7.3, Albumin 2.9L, Globulin 4.4, Albumin/Globulin Ratio 0.7L, Digoxin Level 1.0 Current Medications Medications (Trade) Dose Ordered Sig/Con Route PRN Reason Start Time Stop Time Status Last Admin Dose Admin Acetaminophen (Tylenol) 650 mg Q4H PRN ORAL Mild Pain (Pain Scale 1-3) 12/03/17 23:00 01/02/18 22:59 Budesonide (Pulmicort) 0.25 mg EVERY 12 HOURS HHN 12/04/17 09:00 01/03/18 08:59 12/09/17 08:55 Dextrose (Dextrose 50%) 25 ml STAT PRN IV Hypoglycemia 12/03/17 23:00 01/02/18 22:59 Dextrose (Dextrose 50%) 50 ml STAT PRN IV Hypoglycemia 12/03/17 23:00 01/02/18 22:59 Diltiazem HCl (Cardizem) 90 mg TID ORAL 12/07/17 09:00 01/06/18 08:59 12/09/17 12:47 Divalproex Sodium (Depakote ER) 250 mg EVERY 12 HOURS ORAL 12/04/17 09:00 01/03/18 08:59 12/08/17 21:13 Docusate Sodium (Colace) 100 mg TID ORAL 12/04/17 18:00 01/03/18 08:59 12/08/17 18:45 Famotidine (Pepcid) 20 mg BID ORAL 12/04/17 09:00 01/03/18 08:59 12/08/17 18:45 Folic Acid (Folate) 2 mg DAILY ORAL 12/06/17 13:00 01/05/18 12:59 12/08/17 09:04 Guaifenesin (Robitussin) 200 mg Q6H PRN PO cough & congestion 12/04/17 01:30 01/03/18 01:29 12/04/17 15:02 Ipratropium [place] (Atrovent) 500 mcg Q4H PRN HHN Shortness of Breath 12/06/17 10:00 12/11/17 09:59 Ipratropium [place] (Atrovent) 500 mcg Q6HRT HHN 12/06/17 13:00 12/11/17 12:59 12/09/17 13:17 Levetiracetam (Keppra) 500 mg Q12HR ORAL 12/04/17 09:00 01/03/18 08:59 12/08/17 21:14 Levothyroxine Sodium (Synthroid) 50 mcg DAILY@0630 ORAL 12/08/17 06:30 01/05/18 06:29 12/09/17 06:01 Metoprolol Tartrate (Lopressor) 200 mg BID ORAL 12/09/17 09:00 01/08/18 08:59 Mirtazapine (Remeron) 15 mg BEDTIME ORAL 12/08/17 21:00 01/07/18 20:59 12/08/17 21:25 Sodium Chloride 1,000 ml @ 100 mls/hr Q10H IV 12/08/17 21:36 01/07/18 21:35 12/09/17 08:04 Tamsulosin HCl (Flomax) 0.4 mg BID ORAL 12/04/17 18:00 01/03/18 20:59 12/08/17 18:45 Zolpidem Tartrate (Ambien) 5 mg DAILYPRN PRN ORAL Insomnia 12/03/17 23:00 12/10/17 22:59 Luther Carroll MD Dec 09, 2017 14:49
[2017-12-09 16:00] VITALS: BP 127/75
--- NOTE | 2017-12-09 16:37 | Diagnostic Imaging Report ---
Indication: Shortness of breath Technique: One view of the chest Comparison: 12/03/2017 Findings: The heart is enlarged. There is bilateral mostly interstitial edema, appearing similar in extent to the previous study. There are slight blunting of left costophrenic sulcus. Right pleural spaces grossly clear. There are degenerative changes of both shoulders Impression: Cardiomegaly with evidence of congestive heart failure, similar to previous exam 12/03/2017
--- NOTE | 2017-12-09 16:47 | Diagnostic Imaging Report ---
Indications: Dysphagia Technique: Patient ingested multiple substances under the supervision of speech pathology. Video fluoroscopic recording performed. Total fluoroscopy time 268 seconds. Total dose area product 0.37810 mGycm2. Total number of fluoroscopic runs-4 Comparison: none Findings: Thin liquids pooled in the patient's mouth and vallecula, patient did not swallow, unable to assess with nectar thick liquid barium, marked delay in initiation of deglutition with a single poor quality swallow Impression: Very limited exam. Positive for penetration of nectar thick liquid barium Please refer to speech pathology report for more detailed analysis
[2017-12-09 20:00] VITALS: BP 102/72
--- NOTE | 2017-12-09 23:16 | General Progress Note ---
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 Depakote 250mg bid provide ro/st add remeron the pt lacks capacity to make decisions Subjective Allergies: Coded Allergies: MARYANA INHIBITORS (Unverified Allergy, Unknown, 01/31/14) ARB-ANGIOTENSIN RECEPTOR ANTAGONIST (Unverified Allergy, Unknown, 01/31/14) Subjective the pt is more confused than baseline Objective Last 24 Hour Vital Signs Date Time Temp Pulse Resp B/P (MAP) Pulse Ox O2 Delivery O2 Flow Rate FiO2 12/09/17 22:10 128 18 99 Nasal Cannula 2.0 28 12/09/17 22:00 125 18 97 Nasal Cannula 2.0 28 12/09/17 20:00 105 12/09/17 20:00 97.0 105 19 102/72 (82) 97 97.0 12/09/17 19:55 128 20 99 Nasal Cannula 2.0 28 12/09/17 19:45 98 Nasal Cannula 2.0 28 12/09/17 19:45 127 20 98 Nasal Cannula 2.0 12/09/17 19:45 Nasal Cannula 2.0 28 12/09/17 17:41 135 127/75 12/09/17 17:41 135 127/75 12/09/17 16:30 135 12/09/17 16:00 98.3 117 20 127/75 (92) 100 98.3 12/09/17 13:22 129 18 99 Nasal Cannula 2.0 28 12/09/17 13:18 128 18 98 Nasal Cannula 2.0 28 12/09/17 12:47 135 122/88 12/09/17 12:45 135 12/09/17 12:00 98.1 135 20 122/88 (99) 99 98.1 12/09/17 11:30 134 12/09/17 09:00 Nasal Cannula 2.0 12/09/17 09:00 124 20 99 Nasal Cannula 2.0 28 12/09/17 08:55 123 18 99 Nasal Cannula 2.0 28 12/09/17 08:00 97.2 132 20 114/85 (95) 98 97.2 12/09/17 07:49 132 12/09/17 07:31 131 20 99 Nasal Cannula 2.0 12/09/17 07:29 Nasal Cannula 2.0 28 12/09/17 07:29 99 Nasal Cannula 2.0 28 12/09/17 07:28 129 20 99 Nasal Cannula 2.0 28 12/09/17 04:00 131 12/09/17 04:00 97.5 133 18 131/86 (101) 96 97.5 12/09/17 01:15 125 18 99 Nasal Cannula 2.0 28 12/09/17 01:05 126 18 98 Nasal Cannula 2.0 28 12/09/17 00:00 97.9 128 19 125/91 (102) 100 97.9 12/09/17 00:00 130 Intake and Output 12/08/17 12/09/17 19:00 07:00 Output Total 900 ml Balance -900 ml Output Urine Total 900 ml # Bowel Movements 1 1 Laboratory Tests 12/09/17 06:00: White Blood Count 4.6L, Red Blood Count 4.10L, Hemoglobin 11.7L, Hematocrit 37.0L, Mean Corpuscular Volume 90, Mean Corpuscular Hemoglobin 28.5, Mean Corpuscular Hemoglobin Concent 31.6L, Red Cell Distribution Width 16.1H, Platelet Count 133L, Mean Platelet Volume 7.1, Neutrophils (%) (Auto) 55.7, Lymphocytes (%) (Auto) 24.4, Monocytes (%) (Auto) 13.3H, Eosinophils (%) (Auto) 5.9H, Basophils (%) (Auto) 0.7, Prothrombin Time 41.8H, Prothromb Time International Ratio 4.3H, Activated Partial Thromboplast Time 55H, Sodium Level 143, Potassium Level 4.2, Chloride Level 111H, Carbon Dioxide Level 23, Anion Gap 9, Blood Urea Nitrogen 28H, Creatinine 2.0H, Estimat Glomerular Filtration Rate , Glucose Level 73L, Uric Acid 7.0, Calcium Level 8.8, Phosphorus Level 3.0 , Magnesium Level 1.8, Total Bilirubin 0.5, Aspartate Amino Transf (AST/SGOT) 15 , Alanine Aminotransferase (ALT/SGPT) 15, Alkaline Phosphatase 56, Troponin I 0.033, Total Protein 7.3, Albumin 2.9L, Globulin 4.4, Albumin/Globulin Ratio 0.7L, Digoxin Level 1.0 Height (Feet): 6 Height (Inches): 0.00 Weight (Pounds): 218 Rufus Velasquez MD Dec 09, 2017 23:16
--- NOTE | 2017-12-09 23:37 | Cardiology Progress Note ---
Assessment/Plan Assessment/Plan 1. Permanent atrial fibrillation with RVR, continue metoprolol and diltiazem, Start digoxin, continue warfarin, INR at super-therapeutic level, echo shows borderline LVEF likely due to atrial fibrillation. 2. Possible chronic HFpEF due to atrial fibrillation. 3. Hypotension, resolved. 4. Hypothyroidism 5. Anemia 6. Hx of CVA Subjective Subjective Atrial fibrillation with rapid ventricular response at 105. Objective Last 24 Hour Vital Signs Date Time Temp Pulse Resp B/P (MAP) Pulse Ox O2 Delivery O2 Flow Rate FiO2 12/09/17 22:10 128 18 99 Nasal Cannula 2.0 28 12/09/17 22:00 125 18 97 Nasal Cannula 2.0 28 12/09/17 20:00 105 12/09/17 20:00 97.0 105 19 102/72 (82) 97 97.0 12/09/17 19:55 128 20 99 Nasal Cannula 2.0 28 12/09/17 19:45 98 Nasal Cannula 2.0 28 12/09/17 19:45 127 20 98 Nasal Cannula 2.0 12/09/17 19:45 Nasal Cannula 2.0 12/09/17 17:41 135 127/75 12/09/17 17:41 135 127/75 12/09/17 16:30 135 12/09/17 16:00 98.3 117 20 127/75 (92) 100 98.3 12/09/17 13:22 129 18 99 Nasal Cannula 2.0 28 12/09/17 13:18 128 18 98 Nasal Cannula 2.0 12/09/17 12:47 135 122/88 12/09/17 12:45 135 12/09/17 12:00 98.1 135 20 122/88 (99) 99 98.1 12/09/17 11:30 134 12/09/17 09:00 Nasal Cannula 2.0 12/09/17 09:00 124 20 99 Nasal Cannula 2.0 12/09/17 08:55 123 18 99 Nasal Cannula 2.0 12/09/17 08:00 97.2 132 20 114/85 (95) 98 97.2 12/09/17 07:49 132 12/09/17 07:31 131 20 99 Nasal Cannula 2.0 12/09/17 07:29 Nasal Cannula 2.0 12/09/17 07:29 99 Nasal Cannula 2.0 28 12/09/17 07:28 129 20 99 Nasal Cannula 2.0 28 12/09/17 04:00 131 12/09/17 04:00 97.5 133 18 131/86 (101) 96 97.5 12/09/17 01:15 125 18 99 Nasal Cannula 2.0 28 12/09/17 01:05 126 18 98 Nasal Cannula 2.0 28 12/09/17 00:00 97.9 128 19 125/91 (102) 100 97.9 12/09/17 00:00 130 Intake and Output 12/08/17 12/09/17 19:00 07:00 Output Total 900 ml Balance -900 ml Output Urine Total 900 ml # Bowel Movements 1 1 2D Echo: EF 50%, mod LVH, RVSp 53 mmHg, Grade I LVDD, Mod [place]/MR, Small Nellie Eff. Laboratory Tests Test 12/09/17 06:00 White Blood Count 4.6 K/UL (4.8-10.8) L Red Blood Count 4.10 M/UL (4.70-6.10) L Hemoglobin 11.7 G/DL (14.2-18.0) L Hematocrit 37.0 % (42.0-52.0) L Mean Corpuscular Volume 90 FL (80-99) Mean Corpuscular Hemoglobin 28.5 PG (27.0-31.0) Mean Corpuscular Hemoglobin Concent 31.6 G/DL (32.0-36.0) L Red Cell Distribution Width 16.1 % (11.6-14.8) H Platelet Count 133 K/UL (150-450) L Mean Platelet Volume 7.1 FL (6.5-10.1) Neutrophils (%) (Auto) 55.7 % (45.0-75.0) Lymphocytes (%) (Auto) 24.4 % (20.0-45.0) Monocytes (%) (Auto) 13.3 % (1.0-10.0) H Eosinophils (%) (Auto) 5.9 % (0.0-3.0) H Basophils (%) (Auto) 0.7 % (0.0-2.0) Prothrombin Time 41.8 SEC (9.30-11.50) H Prothromb Time International Ratio 4.3 (0.9-1.1) H Activated Partial Thromboplast Time 55 SEC (23-33) H Sodium Level 143 MMOL/L (136-145) Potassium Level 4.2 MMOL/L (3.5-5.1) Chloride Level 111 MMOL/L (98-107) H Carbon Dioxide Level 23 MMOL/L (21-32) Anion Gap 9 mmol/L (5-15) Blood Urea Nitrogen 28 mg/dL (7-18) H Creatinine 2.0 MG/DL (0.55-1.30) H Estimat Glomerular Filtration Rate mL/min (>60) Glucose Level 73 MG/DL (74-106) L Uric Acid 7.0 MG/DL (2.6-7.2) Calcium Level 8.8 MG/DL (8.5-10.1) Phosphorus Level 3.0 MG/DL (2.5-4.9) Magnesium Level 1.8 MG/DL (1.8-2.4) Total Bilirubin 0.5 MG/DL (0.2-1.0) Aspartate Amino Transf (AST/SGOT) 15 U/L (15-37) Alanine Aminotransferase (ALT/SGPT) 15 U/L (12-78) Alkaline Phosphatase 56 U/L (46-116) Troponin I 0.033 ng/mL (0.000-0.056) Total Protein 7.3 G/DL (6.4-8.2) Albumin 2.9 G/DL (3.4-5.0) L Globulin 4.4 g/dL Albumin/Globulin Ratio 0.7 (1.0-2.7) L Digoxin Level 1.0 NG/ML (0.5-2.0) Microbiology Date/Time Source Procedure Growth Status 12/07/17 13:00 Sputum Expectorated Gram Stain - Final Resulted 12/07/17 13:00 Sputum Expectorated Sputum Culture Pending Resulted 12/07/17 06:20 Nasal Nares MRSA Culture - Final NO METHICILLIN RESISTANT STAPH AUREUS... Complete 12/07/17 02:20 Urine,Clean Catch Urine Culture - Preliminary YEAST Resulted 12/07/17 06:20 Rectum VRE Culture - Final NO VANCOMYCIN RESISTANT ENTEROCOCCUS ... Complete Objective HEENT: Atraumatic and normocephalic. Anicteric. Pupils are equal, round, and reactive to light and accommodation. Extraocular muscles intact. NECK: JVP is less than 5 cm. No carotid bruit. Carotid upstrokes 2+ bilaterally. CARDIOVASCULAR SYSTEM: Normal S1, S2. Irregularly irregular rhythm. Tachycardic, No murmurs, gallops, or rubs. PMI is at fourth intercostal space at midclavicular line. LUNGS: Clear to auscultation bilaterally. ABDOMEN: Soft, nontender, and nondistended. No hepatosplenomegaly. Positive bowel sounds. EXTREMITIES: No evidence of edema, clubbing, or cyanosis. Tj Crespo MD Dec 09, 2017 23:37
[2017-12-10] VITALS: BP 125/83
[2017-12-10] MEDS: Ipratropium 0.02% Inh Soln 2.5ml UD HHN SCH ×4 (01:28→19:41)
[2017-12-10 04:00] VITALS: BP 128/83
--- NOTE | 2017-12-10 06:38 | General Progress Note ---
Assessment/Plan Problem List: (1) Encounter for PEG (percutaneous endoscopic gastrostomy) ICD Codes: Z43.1 - Encounter for attention to gastrostomy SNOMED: 616601242, 012851462 (2) Malnutrition ICD Codes: E46 - Unspecified protein-calorie malnutrition SNOMED: 16757989 (3) Dysphagia ICD Codes: R13.10 - Dysphagia, unspecified SNOMED: 81954183, 356380903 (4) Diabetic nephropathy ICD Codes: E11.21 - Type 2 diabetes mellitus with diabetic nephropathy SNOMED: 62300231, 983511734 (5) Atrial fibrillation with tachycardic ventricular rate ICD Codes: I48.91 - Unspecified atrial fibrillation SNOMED: 31949811, 49566546 (6) COPD (chronic obstructive pulmonary disease) ICD Codes: J44.9 - Chronic obstructive pulmonary disease, unspecified SNOMED: 43613771 (7) stroke L MCA, subacute, ischemic Assessment/Plan PEG canceled yesterday due to elevated INR >> will reschedule for next Tuesday. - NPO @ [facility] day prior procedure. - d/w with daughter, whom has agreed. - d/w with cardiac, whom has cleared patient for procedure - HOLD all blood thinners correct INR KUB reviewed ppi folate fu labs Subjective ROS Limited/Unobtainable: No Allergies: Coded Allergies: MARYANA INHIBITORS (Unverified Allergy, Unknown, 01/31/14) ARB-ANGIOTENSIN RECEPTOR ANTAGONIST (Unverified Allergy, Unknown, 01/31/14) Objective Last 24 Hour Vital Signs Date Time Temp Pulse Resp B/P (MAP) Pulse Ox O2 Delivery O2 Flow Rate FiO2 12/10/17 06:00 132 12/10/17 04:00 97.3 132 21 128/83 (98) 96 97.3 12/10/17 01:37 128 18 99 Nasal Cannula 2.0 28 12/10/17 01:27 125 18 99 Nasal Cannula 2.0 28 12/10/17 00:00 130 12/10/17 00:00 98.2 130 22 125/83 (97) 93 98.2 12/09/17 22:10 128 18 99 Nasal Cannula 2.0 28 12/09/17 22:00 125 18 97 Nasal Cannula 2.0 28 12/09/17 21:00 Nasal Cannula 2.0 12/09/17 20:00 105 12/09/17 20:00 97.0 105 19 102/72 (82) 97 97.0 12/09/17 19:55 128 20 99 Nasal Cannula 2.0 28 12/09/17 19:45 98 Nasal Cannula 2.0 28 12/09/17 19:45 127 20 98 Nasal Cannula 2.0 28 12/09/17 19:45 Nasal Cannula 2.0 28 12/09/17 17:41 135 127/75 12/09/17 17:41 135 127/75 12/09/17 16:30 135 12/09/17 16:00 98.3 117 20 127/75 (92) 100 98.3 12/09/17 13:22 129 18 99 Nasal Cannula 2.0 28 12/09/17 13:18 128 18 98 Nasal Cannula 2.0 28 12/09/17 12:47 135 122/88 12/09/17 12:45 135 12/09/17 12:00 98.1 135 20 122/88 (99) 99 98.1 12/09/17 11:30 134 12/09/17 09:00 Nasal Cannula 2.0 12/09/17 09:00 124 20 99 Nasal Cannula 2.0 28 12/09/17 08:55 123 18 99 Nasal Cannula 2.0 28 12/09/17 08:00 97.2 132 20 114/85 (95) 98 97.2 12/09/17 07:49 132 12/09/17 07:31 131 20 99 Nasal Cannula 2.0 28 12/09/17 07:29 Nasal Cannula 2.0 28 12/09/17 07:29 99 Nasal Cannula 2.0 28 12/09/17 07:28 129 20 99 Nasal Cannula 2.0 28 Intake and Output 12/09/17 12/10/17 19:00 07:00 Intake Total 200 ml 600 ml Output Total 300 ml 275 ml Balance -100 ml 325 ml IV Total 200 ml 600 ml Output Urine Total 300 ml 275 ml # Voids 2 # Bowel Movements 3 Height (Feet): 6 Height (Inches): 0.00 Weight (Pounds): 218 General Appearance: no apparent distress EENT: normal ENT inspection Neck: supple Cardiovascular: arrhythmia Respiratory/Chest: decreased breath sounds Abdomen: normal bowel sounds, non tender, soft Extremities: non-tender Anders Rashid MD Dec 10, 2017 06:38
[2017-12-10 07:45] LABS: ANION GAP 10 mmol/L (5-15); BLOOD UREA NITROGEN 24 mg/dL (7-18); CALCIUM 8.6 MG/DL (8.5-10.1); CARBON DIOXIDE 22 MMOL/L (21-32); CHLORIDE 110 MMOL/L (98-107); CREATININE 1.8 MG/DL (0.55-1.30); POTASSIUM 4.6 MMOL/L (3.5-5.1); SODIUM 142 MMOL/L (136-145)
[2017-12-10 07:47] LABS: BASOPHILS % (AUTO) 1.3 % (0.0-2.0); EOSINOPHILS % (AUTO) 5.8 % (0.0-3.0); HEMATOCRIT 37.8 % (42.0-52.0); HEMOGLOBIN 12.3 G/DL (14.2-18.0); LYMPHOCYTES % (AUTO) 21.3 % (20.0-45.0); MEAN CORPUSCULAR VOLUME 90 FL (80-99); MONOCYTES % (AUTO) 14.3 % (1.0-10.0); NEUTROPHILS % (AUTO) 57.3 % (45.0-75.0); PLATELET COUNT 128 K/UL (150-450); RED CELL DISTRIBUTION WIDTH 15.7 % (11.6-14.8); WHITE BLOOD COUNT 4.7 K/UL (4.8-10.8)
[2017-12-10 08:00] VITALS: BP 131/87
[2017-12-10 08:12] LABS: INR 4.5 (0.9-1.1)
[2017-12-10] MEDS: Budesonide HHN 0.25mg/2ml ud HHN SCH ×2 (08:32→21:32)
[2017-12-10] MEDS: Docusate 100mg cap ORAL SCH ×3 (09:10→18:16)
[2017-12-10] MEDS: Digoxin 0.125mg tab ORAL SCH (09:10)
[2017-12-10] MEDS: Depakote ER 250mg tab ORAL SCH ×2 (09:10→21:56)
[2017-12-10] MEDS: dilTIAZem HCl 60mg tab ORAL SCH (09:11)
[2017-12-10] MEDS: Tamsulosin 0.4mg cap ORAL SCH (09:11)
[2017-12-10] MEDS: D5 1/2NS 1,000 ML IV SCH ×2 (09:17→18:17)
--- NOTE | 2017-12-10 11:40 | Nephrology Progress Note ---
Assessment/Plan Problem List: (1) Acute on chronic renal failure (2) Atrial fibrillation with tachycardic ventricular rate (3) Seizure disorder (4) Diabetic nephropathy (5) Hypothyroid Assessment: adjust synthroid dose Assessment Renal failure due to pre renal azotemia due to underlying CHF- Cr 1.8 Afib : heart rate remains high Cardiomyopathy Acute CHF others: Acute Asthma/copd exacerbation seizures DM Cerebrovascular accident with right hemiplegia. Congestive heart failure - diastolic with the preserved ejection fraction. Benign prostatic hypertrophy. h/o Pneumonia- SVT , At fib- on anti coag h/o DVT- h/o HypoThyroidism h/o Gout Dementia HTN Plan HR management per [employer] digoxin PO increase cardiazem Optimize cardiac and pulmonary status monitor renal parameters- avoid nephrotoxics- flomax adjust bp meds check labs discussed with CASPER MCKEON: Nonobstructive stones within the left kidney. Questionable nonobstructive stone in the right kidney. Noncontrast CT May BE of benefit for confirmation. No evidence of obstructive nephropathy. Multiple bilateral renal cysts. Subjective ROS Limited/Unobtainable: No Constitutional: Reports: malaise, weakness Objective Objective Last 24 Hour Vital Signs Date Time Temp Pulse Resp B/P (MAP) Pulse Ox O2 Delivery O2 Flow Rate FiO2 12/10/17 09:11 124 131/87 12/10/17 09:11 124 131/87 12/10/17 09:10 124 12/10/17 09:00 Nasal Cannula 2.0 12/10/17 08:34 124 18 99 Nasal Cannula 2.0 28 12/10/17 08:33 122 18 98 Nasal Cannula 2.0 28 12/10/17 08:32 123 18 99 Nasal Cannula 2.0 28 12/10/17 08:31 120 18 99 Nasal Cannula 2.0 28 12/10/17 08:30 98 Nasal Cannula 2.0 28 12/10/17 08:30 Nasal Cannula 2.0 28 12/10/17 08:29 121 18 Nasal Cannula 2.0 28 12/10/17 08:03 132 12/10/17 08:00 97.7 132 20 131/87 (102) 100 97.7 12/10/17 06:00 132 12/10/17 04:00 97.3 132 21 128/83 (98) 96 97.3 12/10/17 01:37 128 18 99 Nasal Cannula 2.0 28 12/10/17 01:27 125 18 99 Nasal Cannula 2.0 28 12/10/17 00:00 130 12/10/17 00:00 98.2 130 22 125/83 (97) 93 98.2 12/09/17 22:10 128 18 99 Nasal Cannula 2.0 28 12/09/17 22:00 125 18 97 Nasal Cannula 2.0 28 12/09/17 21:00 Nasal Cannula 2.0 12/09/17 20:00 105 12/09/17 20:00 97.0 105 19 102/72 (82) 97 97.0 12/09/17 19:55 128 20 99 Nasal Cannula 2.0 28 12/09/17 19:45 98 Nasal Cannula 2.0 12/09/17 19:45 127 20 98 Nasal Cannula 2.0 12/09/17 19:45 Nasal Cannula 2.0 28 12/09/17 17:41 135 127/75 12/09/17 17:41 135 127/75 12/09/17 16:30 135 12/09/17 16:00 98.3 117 20 127/75 (92) 100 98.3 12/09/17 13:22 129 18 99 Nasal Cannula 2.0 28 12/09/17 13:18 128 18 98 Nasal Cannula 2.0 28 12/09/17 12:47 135 122/88 12/09/17 12:45 135 12/09/17 12:00 98.1 135 20 122/88 (99) 99 98.1 Intake and Output 12/09/17 12/10/17 19:00 07:00 Intake Total 1200 ml 600 ml Output Total 300 ml 275 ml Balance 900 ml 325 ml IV Total 1200 ml 600 ml Output Urine Total 300 ml 275 ml # Voids 2 # Bowel Movements 3 Laboratory Tests 12/10/17 07:09: White Blood Count 4.7L, Red Blood Count 4.20L, Hemoglobin 12.3L, Hematocrit 37.8L, Mean Corpuscular Volume 90, Mean Corpuscular Hemoglobin 29.2, Mean Corpuscular Hemoglobin Concent 32.4, Red Cell Distribution Width 15.7H, Platelet Count 128L, Mean Platelet Volume 7.1, Neutrophils (%) (Auto) 57.3, Lymphocytes (%) (Auto) 21.3, Monocytes (%) (Auto) 14.3H, Eosinophils (%) (Auto) 5.8H, Basophils (%) (Auto) 1.3, Prothrombin Time 43.5H, Prothromb Time International Ratio 4.5H, Sodium Level 142, Potassium Level 4.6, Chloride Level 110H, Carbon Dioxide Level 22, Anion Gap 10, Blood Urea Nitrogen 24H, Creatinine 1.8H, Estimat Glomerular Filtration Rate , Glucose Level 67L, Calcium Level 8.6 Height (Feet): 6 Height (Inches): 0.00 Weight (Pounds): 218 General Appearance: no apparent distress Cardiovascular: tachycardia, arrhythmia Respiratory/Chest: decreased breath sounds Abdomen: distended Objective no change Isaias Noe MD Dec 10, 2017 11:40
[2017-12-10 12:00] VITALS: BP 137/80
--- NOTE | 2017-12-10 12:23 | Pulmonology Progress Note ---
Assessment/Plan Assessment/Plan ASSESSMENT: The patient is an 82-year-old male with a detention resident with a history of chronic obstructive pulmonary disease, congestive heart failure, chronic kidney disease, dementia, prior cerebrovascular accident, and chronic atrial fibrillation, presenting with shortness of breath likely secondary to decompensated heart failure. He is also on Zosyn for possible aspiration and healthcare associated pneumonia. PROBLEM LIST: 1. Acute hypoxemic respiratory failure likely secondary to decompensated heart failure. 2. Bibasilar opacities, likely edema, possible aspiration. 3. Chronic obstructive pulmonary disease. 4. Congestive heart failure with acute decompensated heart failure. 5. Chronic atrial fibrillation. 6. Dementia. 7. Prior cerebrovascular accident. 8. Chronic kidney disease. 9. intermediate resident. 10. Dysphagia 11. Coagulopathy TREATMENT PLAN: 1. Optimize pulmonary hygiene/mobilize as tolerated. 2. PRN O2 3. ATROVENT only HHN's 4. Continue b.i.d. budesonide. 5. Observe off Abx per ID 6. Monitor volumes and renal function, PRN Diuretics 7. NPO, PEG tuesday 8. Correct coagulopathy, ? Vit K 9. DVT PROPHYLAXIS: A/C (held for PEG) 10. The patient is Full Code, continue to discuss goals of care. Subjective Allergies: Coded Allergies: MARYANA INHIBITORS (Unverified Allergy, Unknown, 01/31/14) ARB-ANGIOTENSIN RECEPTOR ANTAGONIST (Unverified Allergy, Unknown, 01/31/14) Subjective AFcRVR, stable on RA to 2L, INR 4.5 Denies SOB, no cough, no wheezing, no Cp Objective Last 24 Hour Vital Signs Date Time Temp Pulse Resp B/P (MAP) Pulse Ox O2 Delivery O2 Flow Rate FiO2 12/10/17 09:11 124 131/87 12/10/17 09:11 124 131/87 12/10/17 09:10 124 12/10/17 09:00 Nasal Cannula 2.0 12/10/17 08:34 124 18 99 Nasal Cannula 2.0 28 12/10/17 08:33 122 18 98 Nasal Cannula 2.0 28 12/10/17 08:32 123 18 99 Nasal Cannula 2.0 28 12/10/17 08:31 120 18 99 Nasal Cannula 2.0 28 12/10/17 08:30 98 Nasal Cannula 2.0 12/10/17 08:30 Nasal Cannula 2.0 28 12/10/17 08:29 121 18 Nasal Cannula 2.0 28 12/10/17 08:03 132 12/10/17 08:00 97.7 132 20 131/87 (102) 100 97.7 12/10/17 06:00 132 12/10/17 04:00 97.3 132 21 128/83 (98) 96 97.3 12/10/17 01:37 128 18 99 Nasal Cannula 2.0 28 12/10/17 01:27 125 18 99 Nasal Cannula 2.0 28 12/10/17 00:00 130 12/10/17 00:00 98.2 130 22 125/83 (97) 93 98.2 12/09/17 22:10 128 18 99 Nasal Cannula 2.0 28 12/09/17 22:00 125 18 97 Nasal Cannula 2.0 28 12/09/17 21:00 Nasal Cannula 2.0 12/09/17 20:00 105 12/09/17 20:00 97.0 105 19 102/72 (82) 97 97.0 12/09/17 19:55 128 20 99 Nasal Cannula 2.0 28 12/09/17 19:45 98 Nasal Cannula 2.0 28 12/09/17 19:45 127 20 98 Nasal Cannula 2.0 28 12/09/17 19:45 Nasal Cannula 2.0 28 12/09/17 17:41 135 127/75 12/09/17 17:41 135 127/75 12/09/17 16:30 135 12/09/17 16:00 98.3 117 20 127/75 (92) 100 98.3 12/09/17 13:22 129 18 99 Nasal Cannula 2.0 28 12/09/17 13:18 128 18 98 Nasal Cannula 2.0 28 12/09/17 12:47 135 122/88 12/09/17 12:45 135 Intake and Output 12/09/17 12/10/17 19:00 07:00 Intake Total 1200 ml 600 ml Output Total 300 ml 275 ml Balance 900 ml 325 ml IV Total 1200 ml 600 ml Output Urine Total 300 ml 275 ml # Voids 2 # Bowel Movements 3 General Appearance: WD/WN, no acute distress HEENT: normocephalic, atraumatic, anicteric, mucous membranes moist Respiratory/Chest: rhonchi Cardiovascular: normal peripheral pulses, irregularly irregular Abdomen: normal bowel sounds, soft, non tender, no organomegaly, non distended , no mass Extremities: no cyanosis, no clubbing, no edema Microbiology Date/Time Source Procedure Growth Status 12/07/17 13:00 Sputum Expectorated Gram Stain - Final Complete 12/07/17 13:00 Sputum Culture - Final Tamara Albicans Complete Laboratory Tests 12/10/17 07:09: White Blood Count 4.7L, Red Blood Count 4.20L, Hemoglobin 12.3L, Hematocrit 37.8L, Mean Corpuscular Volume 90, Mean Corpuscular Hemoglobin 29.2, Mean Corpuscular Hemoglobin Concent 32.4, Red Cell Distribution Width 15.7H, Platelet Count 128L, Mean Platelet Volume 7.1, Neutrophils (%) (Auto) 57.3, Lymphocytes (%) (Auto) 21.3, Monocytes (%) (Auto) 14.3H, Eosinophils (%) (Auto) 5.8H, Basophils (%) (Auto) 1.3, Prothrombin Time 43.5H, Prothromb Time International Ratio 4.5H, Sodium Level 142, Potassium Level 4.6, Chloride Level 110H, Carbon Dioxide Level 22, Anion Gap 10, Blood Urea Nitrogen 24H, Creatinine 1.8H, Estimat Glomerular Filtration Rate , Glucose Level 67L, Calcium Level 8.6 Current Medications Medications (Trade) Dose Ordered Sig/Con Route PRN Reason Start Time Stop Time Status Last Admin Dose Admin Acetaminophen (Tylenol) 650 mg Q4H PRN ORAL Mild Pain (Pain Scale 1-3) 12/03/17 23:00 01/02/18 22:59 Budesonide (Pulmicort) 0.25 mg EVERY 12 HOURS HHN 12/04/17 09:00 01/03/18 08:59 12/10/17 08:32 Dextrose (Dextrose 50%) 25 ml STAT PRN IV Hypoglycemia 12/03/17 23:00 01/02/18 22:59 Dextrose (Dextrose 50%) 50 ml STAT PRN IV Hypoglycemia 12/03/17 23:00 01/02/18 22:59 Dextrose/Sodium Chloride 1,000 ml @ 100 mls/hr Q10H IV 12/10/17 08:15 01/09/18 08:14 12/10/17 09:17 Digoxin (Lanoxin) 0.125 mg DAILY ORAL 12/10/17 09:00 01/09/18 08:59 12/10/17 09:10 Diltiazem HCl (Cardizem) 90 mg Q6H ORAL 12/10/17 15:00 01/09/18 14:59 Divalproex Sodium (Depakote ER) 250 mg EVERY 12 HOURS ORAL 12/04/17 09:00 01/03/18 08:59 12/10/17 09:10 Docusate Sodium (Colace) 100 mg TID ORAL 12/04/17 18:00 01/03/18 08:59 12/10/17 09:10 Famotidine (Pepcid) 20 mg BID ORAL 12/04/17 09:00 01/03/18 08:59 12/10/17 09:11 Folic Acid (Folate) 2 mg DAILY ORAL 12/06/17 13:00 01/05/18 12:59 12/10/17 09:11 Guaifenesin (Robitussin) 200 mg Q6H PRN PO cough & congestion 12/04/17 01:30 01/03/18 01:29 12/04/17 15:02 Ipratropium [place] (Atrovent) 500 mcg Q4H PRN HHN Shortness of Breath 12/06/17 10:00 12/11/17 09:59 Ipratropium [place] (Atrovent) 500 mcg Q6HRT HHN 12/06/17 13:00 12/11/17 12:59 12/10/17 08:28 Levetiracetam (Keppra) 500 mg Q12HR ORAL 12/04/17 09:00 01/03/18 08:59 12/10/17 09:11 Levothyroxine Sodium (Synthroid) 50 mcg DAILY@0630 ORAL 12/08/17 06:30 01/05/18 06:29 12/10/17 05:55 Metoprolol Tartrate (Lopressor) 200 mg BID ORAL 12/09/17 09:00 01/08/18 08:59 12/10/17 09:11 Mirtazapine (Remeron) 15 mg BEDTIME ORAL 12/08/17 21:00 01/07/18 20:59 12/09/17 21:19 Tamsulosin HCl (Flomax) 0.4 mg QHS ORAL 12/11/17 21:00 01/03/18 20:59 Zolpidem Tartrate (Ambien) 5 mg DAILYPRN PRN ORAL Insomnia 12/03/17 23:00 12/10/17 22:59 Luther Carroll MD Dec 10, 2017 12:23
--- NOTE | 2017-12-10 13:31 | Infectious Diseases Prog Note ---
Assessment/Plan Problems: (1) HCAP (healthcare-associated pneumonia) Assessment & Plan: with basal infiltrates, improved, S/P zosyn empirically for 6 days, sputum culture is negative , monitor CXR. aspiration precaution , keep HOB> 30 degree all the time (2) Acute on chronic renal insufficiency Assessment & Plan: improving, avoid nephrotoxics, monitor renal function , renal is following (3) At high risk for aspiration Assessment & Plan: aspiration precaution, keep HOB > 30 Degree all the time (4) Acute CHF Assessment & Plan: with dyspnea continue diuresis , monitor daily weight , fluids restriction (5) COPD (chronic obstructive pulmonary disease) Assessment & Plan: with acute exacerbation due to the above, improving with antibiotics and nebulizers Subjective Constitutional: Reports: no symptoms HEENT: Reports: no symptoms Respiratory: Reports: dry cough Breasts: Reports: no symptoms Cardiovascular: Reports: no symptoms Gastrointestinal/Abdominal: Reports: no symptoms Genitourinary: Reports: no symptoms Neurologic: Reports: no symptoms Psychiatric: Reports: no symptoms Skin: Reports: no symptoms Endocrine: Reports: no symptoms Hematologic: Reports: no symptoms Musculoskeletal: Reports: no symptoms Allergies: Coded Allergies: MARYANA INHIBITORS (Unverified Allergy, Unknown, 01/31/14) ARB-ANGIOTENSIN RECEPTOR ANTAGONIST (Unverified Allergy, Unknown, 01/31/14) Subjective he still has cough less than before, non productive , breath better Objective Vital Signs Last 24 Hour Vital Signs Date Time Temp Pulse Resp B/P (MAP) Pulse Ox O2 Delivery O2 Flow Rate FiO2 12/10/17 13:12 115 18 99 Nasal Cannula 2.0 12/10/17 13:07 111 18 98 Room Air 21 12/10/17 12:00 97.9 131 20 137/80 (99) 100 97.9 12/10/17 09:11 124 131/87 12/10/17 09:11 124 131/87 12/10/17 09:10 124 12/10/17 09:00 Nasal Cannula 2.0 12/10/17 08:34 124 18 99 Nasal Cannula 2.0 12/10/17 08:33 122 18 98 Nasal Cannula 2.0 12/10/17 08:32 123 18 99 Nasal Cannula 2.0 12/10/17 08:31 120 18 99 Nasal Cannula 2.0 12/10/17 08:30 98 Nasal Cannula 2.0 28 12/10/17 08:30 Nasal Cannula 2.0 28 12/10/17 08:29 121 18 Nasal Cannula 2.0 28 12/10/17 08:03 132 12/10/17 08:00 97.7 132 20 131/87 (102) 100 97.7 12/10/17 06:00 132 12/10/17 04:00 97.3 132 21 128/83 (98) 96 97.3 12/10/17 01:37 128 18 99 Nasal Cannula 2.0 28 12/10/17 01:27 125 18 99 Nasal Cannula 2.0 28 12/10/17 00:00 130 12/10/17 00:00 98.2 130 22 125/83 (97) 93 98.2 12/09/17 22:10 128 18 99 Nasal Cannula 2.0 28 12/09/17 22:00 125 18 97 Nasal Cannula 2.0 28 12/09/17 21:00 Nasal Cannula 2.0 12/09/17 20:00 105 12/09/17 20:00 97.0 105 19 102/72 (82) 97 97.0 12/09/17 19:55 128 20 99 Nasal Cannula 2.0 28 12/09/17 19:45 98 Nasal Cannula 2.0 28 12/09/17 19:45 127 20 98 Nasal Cannula 2.0 12/09/17 19:45 Nasal Cannula 2.0 28 12/09/17 17:41 135 127/75 12/09/17 17:41 135 127/75 12/09/17 16:30 135 12/09/17 16:00 98.3 117 20 127/75 (92) 100 98.3 Height (Feet): 6 Height (Inches): 0.00 Weight (Pounds): 218 General Appearance: WD/WN, no acute distress HEENT: normocephalic, atraumatic, anicteric, mucous membranes moist, PERRL Respiratory/Chest: chest wall non-tender, normal breath sounds, no respiratory distress, no accessory muscle use, decreased breath sounds, crackles/rales Cardiovascular: normal peripheral pulses, normal rate, regular rhythm, no gallop/murmur, no JVD Abdomen: normal bowel sounds, soft, non tender, no organomegaly, non distended , no mass, no scars Genitourinary: normal external genitalia Extremities: no cyanosis, no clubbing Skin: no rash, no lesions, no ulcers Neurologic/Psychiatric: alert, oriented x 3, responsive Lymphatic: no neck adenopathy, no groin adenopathy Musculoskeletal: normal muscle bulk, no effusion Objective Laboratory Tests Test 12/10/17 07:09 White Blood Count 4.7 K/UL (4.8-10.8) L Red Blood Count 4.20 M/UL (4.70-6.10) L Hemoglobin 12.3 G/DL (14.2-18.0) L Hematocrit 37.8 % (42.0-52.0) L Mean Corpuscular Volume 90 FL (80-99) Mean Corpuscular Hemoglobin 29.2 PG (27.0-31.0) Mean Corpuscular Hemoglobin Concent 32.4 G/DL (32.0-36.0) Red Cell Distribution Width 15.7 % (11.6-14.8) H Platelet Count 128 K/UL (150-450) L Mean Platelet Volume 7.1 FL (6.5-10.1) Neutrophils (%) (Auto) 57.3 % (45.0-75.0) Lymphocytes (%) (Auto) 21.3 % (20.0-45.0) Monocytes (%) (Auto) 14.3 % (1.0-10.0) H Eosinophils (%) (Auto) 5.8 % (0.0-3.0) H Basophils (%) (Auto) 1.3 % (0.0-2.0) Prothrombin Time 43.5 SEC (9.30-11.50) H Prothromb Time International Ratio 4.5 (0.9-1.1) H Sodium Level 142 MMOL/L (136-145) Potassium Level 4.6 MMOL/L (3.5-5.1) Chloride Level 110 MMOL/L (98-107) H Carbon Dioxide Level 22 MMOL/L (21-32) Anion Gap 10 mmol/L (5-15) Blood Urea Nitrogen 24 mg/dL (7-18) H Creatinine 1.8 MG/DL (0.55-1.30) H Estimat Glomerular Filtration Rate mL/min (>60) Glucose Level 67 MG/DL (74-106) L Calcium Level 8.6 MG/DL (8.5-10.1) Current Medications Medications (Trade) Dose Ordered Sig/Con Route PRN Reason Start Time Stop Time Status Last Admin Dose Admin Acetaminophen (Tylenol) 650 mg Q4H PRN ORAL Mild Pain (Pain Scale 1-3) 12/03/17 23:00 01/02/18 22:59 Budesonide (Pulmicort) 0.25 mg EVERY 12 HOURS HHN 12/04/17 09:00 01/03/18 08:59 12/10/17 08:32 Dextrose (Dextrose 50%) 25 ml STAT PRN IV Hypoglycemia 12/03/17 23:00 01/02/18 22:59 Dextrose (Dextrose 50%) 50 ml STAT PRN IV Hypoglycemia 12/03/17 23:00 01/02/18 22:59 Dextrose/Sodium Chloride 1,000 ml @ 100 mls/hr Q10H IV 12/10/17 08:15 01/09/18 08:14 12/10/17 09:17 Digoxin (Lanoxin) 0.125 mg DAILY ORAL 12/10/17 09:00 01/09/18 08:59 12/10/17 09:10 Diltiazem HCl (Cardizem) 90 mg Q6H ORAL 12/10/17 15:00 01/09/18 14:59 Divalproex Sodium (Depakote ER) 250 mg EVERY 12 HOURS ORAL 12/04/17 09:00 01/03/18 08:59 12/10/17 09:10 Docusate Sodium (Colace) 100 mg TID ORAL 12/04/17 18:00 01/03/18 08:59 12/10/17 09:10 Famotidine (Pepcid) 20 mg BID ORAL 12/04/17 09:00 01/03/18 08:59 12/10/17 09:11 Folic Acid (Folate) 2 mg DAILY ORAL 12/06/17 13:00 01/05/18 12:59 12/10/17 09:11 Guaifenesin (Robitussin) 200 mg Q6H PRN PO cough & congestion 12/04/17 01:30 01/03/18 01:29 12/04/17 15:02 Ipratropium [place] (Atrovent) 500 mcg Q4H PRN HHN Shortness of Breath 12/06/17 10:00 12/11/17 09:59 Ipratropium [place] (Atrovent) 500 mcg Q6HRT HHN 12/06/17 13:00 12/11/17 12:59 12/10/17 13:05 Levetiracetam (Keppra) 500 mg Q12HR ORAL 12/04/17 09:00 01/03/18 08:59 12/10/17 09:11 Levothyroxine Sodium (Synthroid) 50 mcg DAILY@0630 ORAL 12/08/17 06:30 01/05/18 06:29 12/10/17 05:55 Metoprolol Tartrate (Lopressor) 200 mg BID ORAL 12/09/17 09:00 01/08/18 08:59 12/10/17 09:11 Mirtazapine (Remeron) 15 mg BEDTIME ORAL 12/08/17 21:00 01/07/18 20:59 12/09/17 21:19 Tamsulosin HCl (Flomax) 0.4 mg QHS ORAL 12/11/17 21:00 01/03/18 20:59 Zolpidem Tartrate (Ambien) 5 mg DAILYPRN PRN ORAL Insomnia 12/03/17 23:00 12/10/17 22:59 Lysas Strong M.D. Dec 10, 2017 13:31
--- NOTE | 2017-12-10 13:55 | General Progress Note ---
Assessment/Plan Assessment/Plan S: I am doing ok O: appears comfortable. improved sob. Dementia, limited source of information PHYSICAL EXAMINATION: HEAD AND NECK: Atraumatic and normocephalic. CHEST: Bronchial BS, No wheezing, HEART: S1 and S2. IRegular rate and rhythm. ABDOMEN: Soft. No organomegaly. MUSCULOSKELETAL: Positive for right hemiplegia at baseline. NEUROLOGY: The patient is awake. right side weakness, alert and oriented x2 at baseline. Meds: reviewed and reconciled including Zosyn ASSESSMENT AND PLAN: 1. Acute Hypoxemic RF, CHF exacerbation vs Brochitis vs Chemical aspiration 2. Seizures d/o 2. Dementia. 3. Cerebrovascular accident with right hemiplegia. 4. Atrial fibrillation with controlled rate on therapeutic ATC. 5. Congestive heart failure - diastolic with the preserved ejection fraction. 6. Hypothyroidism. 7. Hypertension. 8. Acute on chronic renal failure, 9. Benign prostatic hypertrophy. 10. Gastrointestinal and deep vein thrombosis prophylaxes. 11. Dysphagi- Severe PLAN OF CARE: stable basal infiltrates, New asp ? Volume overload? Increased the Levothyroxin. current pulmonary mgt Proceed with PEG t placement failed V-swallow test HyperCoagulation state Subjective Allergies: Coded Allergies: MARYANA INHIBITORS (Unverified Allergy, Unknown, 01/31/14) ARB-ANGIOTENSIN RECEPTOR ANTAGONIST (Unverified Allergy, Unknown, 01/31/14) Objective Last 24 Hour Vital Signs Date Time Temp Pulse Resp B/P (MAP) Pulse Ox O2 Delivery O2 Flow Rate FiO2 12/10/17 13:12 115 18 99 Nasal Cannula 2.0 12/10/17 13:07 111 18 98 Room Air 21 12/10/17 12:00 97.9 131 20 137/80 (99) 100 97.9 12/10/17 09:11 124 131/87 12/10/17 09:11 124 131/87 12/10/17 09:10 124 12/10/17 09:00 Nasal Cannula 2.0 12/10/17 08:34 124 18 99 Nasal Cannula 2.0 12/10/17 08:33 122 18 98 Nasal Cannula 2.0 12/10/17 08:32 123 18 99 Nasal Cannula 2.0 12/10/17 08:31 120 18 99 Nasal Cannula 2.0 12/10/17 08:30 98 Nasal Cannula 2.0 12/10/17 08:30 Nasal Cannula 2.0 28 12/10/17 08:29 121 18 Nasal Cannula 2.0 28 12/10/17 08:03 132 12/10/17 08:00 97.7 132 20 131/87 (102) 100 97.7 12/10/17 06:00 132 12/10/17 04:00 97.3 132 21 128/83 (98) 96 97.3 12/10/17 01:37 128 18 99 Nasal Cannula 2.0 28 12/10/17 01:27 125 18 99 Nasal Cannula 2.0 28 12/10/17 00:00 130 12/10/17 00:00 98.2 130 22 125/83 (97) 93 98.2 12/09/17 22:10 128 18 99 Nasal Cannula 2.0 28 12/09/17 22:00 125 18 97 Nasal Cannula 2.0 28 12/09/17 21:00 Nasal Cannula 2.0 12/09/17 20:00 105 12/09/17 20:00 97.0 105 19 102/72 (82) 97 97.0 12/09/17 19:55 128 20 99 Nasal Cannula 2.0 28 12/09/17 19:45 98 Nasal Cannula 2.0 28 12/09/17 19:45 127 20 98 Nasal Cannula 2.0 28 12/09/17 19:45 Nasal Cannula 2.0 28 12/09/17 17:41 135 127/75 12/09/17 17:41 135 127/75 12/09/17 16:30 135 12/09/17 16:00 98.3 117 20 127/75 (92) 100 98.3 Intake and Output 12/09/17 12/10/17 19:00 07:00 Intake Total 1200 ml 600 ml Output Total 300 ml 275 ml Balance 900 ml 325 ml IV Total 1200 ml 600 ml Output Urine Total 300 ml 275 ml # Voids 2 # Bowel Movements 3 Laboratory Tests 12/10/17 07:09: White Blood Count 4.7L, Red Blood Count 4.20L, Hemoglobin 12.3L, Hematocrit 37.8L, Mean Corpuscular Volume 90, Mean Corpuscular Hemoglobin 29.2, Mean Corpuscular Hemoglobin Concent 32.4, Red Cell Distribution Width 15.7H, Platelet Count 128L, Mean Platelet Volume 7.1, Neutrophils (%) (Auto) 57.3, Lymphocytes (%) (Auto) 21.3, Monocytes (%) (Auto) 14.3H, Eosinophils (%) (Auto) 5.8H, Basophils (%) (Auto) 1.3, Prothrombin Time 43.5H, Prothromb Time International Ratio 4.5H, Sodium Level 142, Potassium Level 4.6, Chloride Level 110H, Carbon Dioxide Level 22, Anion Gap 10, Blood Urea Nitrogen 24H, Creatinine 1.8H, Estimat Glomerular Filtration Rate , Glucose Level 67L, Calcium Level 8.6 Height (Feet): 6 Height (Inches): 0.00 Weight (Pounds): 218 Ondina Geiger MD Dec 10, 2017 13:55
[2017-12-10] MEDS: dilTIAZem HCl 90mg tab ORAL SCH ×2 (15:42→21:57)
[2017-12-10 16:00] VITALS: BP 143/92
[2017-12-10] MEDS ORDERED: NS 275ml ONE (16:30)
[2017-12-10 20:00] VITALS: BP 119/96
--- NOTE | 2017-12-10 20:51 | Cardiology Progress Note ---
Assessment/Plan Assessment/Plan 1. Permanent atrial fibrillation with RVR, continue metoprolol, diltiazem and digoxin, continue warfarin, INR at super-therapeutic level, vitamin K 1mg SQ x one dose, echo shows borderline LVEF likely due to atrial fibrillation. 2. Possible chronic HFpEF due to atrial fibrillation. 3. Hypotension, resolved. 4. Hypothyroidism 5. Anemia 6. Hx of CVA Subjective Subjective Atrial fibrillation with rapid ventricular response at 126. Objective Last 24 Hour Vital Signs Date Time Temp Pulse Resp B/P (MAP) Pulse Ox O2 Delivery O2 Flow Rate FiO2 12/10/17 19:49 126 18 99 Nasal Cannula 2.0 28 12/10/17 19:39 95 Nasal Cannula 2.0 28 12/10/17 19:39 Nasal Cannula 2.0 28 12/10/17 19:39 126 18 95 Nasal Cannula 2.0 12/10/17 18:17 134 143/92 12/10/17 16:00 97.7 134 20 143/92 (109) 97 97.7 12/10/17 15:57 133 12/10/17 15:42 134 143/92 12/10/17 13:12 115 18 99 Nasal Cannula 2.0 12/10/17 13:07 111 18 98 Room Air 21 12/10/17 12:00 97.9 131 20 137/80 (99) 100 97.9 12/10/17 11:56 131 12/10/17 09:11 124 131/87 12/10/17 09:11 124 131/87 12/10/17 09:10 124 12/10/17 09:00 Nasal Cannula 2.0 12/10/17 08:34 124 18 99 Nasal Cannula 2.0 12/10/17 08:33 122 18 98 Nasal Cannula 2.0 12/10/17 08:32 123 18 99 Nasal Cannula 2.0 12/10/17 08:31 120 18 99 Nasal Cannula 2.0 12/10/17 08:30 98 Nasal Cannula 2.0 12/10/17 08:30 Nasal Cannula 2.0 12/10/17 08:29 121 18 Nasal Cannula 2.0 12/10/17 08:03 132 12/10/17 08:00 97.7 132 20 131/87 (102) 100 97.7 12/10/17 06:00 132 12/10/17 04:00 97.3 132 21 128/83 (98) 96 97.3 12/10/17 01:37 128 18 99 Nasal Cannula 2.0 28 12/10/17 01:27 125 18 99 Nasal Cannula 2.0 28 12/10/17 00:00 130 12/10/17 00:00 98.2 130 22 125/83 (97) 93 98.2 12/09/17 22:10 128 18 99 Nasal Cannula 2.0 28 12/09/17 22:00 125 18 97 Nasal Cannula 2.0 28 12/09/17 21:00 Nasal Cannula 2.0 Intake and Output 12/09/17 12/10/17 19:00 07:00 Intake Total 1200 ml 600 ml Output Total 300 ml 275 ml Balance 900 ml 325 ml IV Total 1200 ml 600 ml Output Urine Total 300 ml 275 ml # Voids 2 # Bowel Movements 3 2D Echo: EF 50%, mod LVH, RVSP 53 mmHg, Grade I LVDD, Mod OK/MR, Small Nellie Eff. Laboratory Tests Test 12/10/17 07:09 White Blood Count 4.7 K/UL (4.8-10.8) L Red Blood Count 4.20 M/UL (4.70-6.10) L Hemoglobin 12.3 G/DL (14.2-18.0) L Hematocrit 37.8 % (42.0-52.0) L Mean Corpuscular Volume 90 FL (80-99) Mean Corpuscular Hemoglobin 29.2 PG (27.0-31.0) Mean Corpuscular Hemoglobin Concent 32.4 G/DL (32.0-36.0) Red Cell Distribution Width 15.7 % (11.6-14.8) H Platelet Count 128 K/UL (150-450) L Mean Platelet Volume 7.1 FL (6.5-10.1) Neutrophils (%) (Auto) 57.3 % (45.0-75.0) Lymphocytes (%) (Auto) 21.3 % (20.0-45.0) Monocytes (%) (Auto) 14.3 % (1.0-10.0) H Eosinophils (%) (Auto) 5.8 % (0.0-3.0) H Basophils (%) (Auto) 1.3 % (0.0-2.0) Prothrombin Time 43.5 SEC (9.30-11.50) H Prothromb Time International Ratio 4.5 (0.9-1.1) H Sodium Level 142 MMOL/L (136-145) Potassium Level 4.6 MMOL/L (3.5-5.1) Chloride Level 110 MMOL/L (98-107) H Carbon Dioxide Level 22 MMOL/L (21-32) Anion Gap 10 mmol/L (5-15) Blood Urea Nitrogen 24 mg/dL (7-18) H Creatinine 1.8 MG/DL (0.55-1.30) H Estimat Glomerular Filtration Rate mL/min (>60) Glucose Level 67 MG/DL (74-106) L Calcium Level 8.6 MG/DL (8.5-10.1) Objective HEENT: Atraumatic and normocephalic. Anicteric. Pupils are equal, round, and reactive to light and accommodation. Extraocular muscles intact. NECK: JVP is less than 5 cm. No carotid bruit. Carotid upstrokes 2+ bilaterally. CARDIOVASCULAR SYSTEM: Normal S1, S2. Irregularly irregular rhythm. Tachycardic, No murmurs, gallops, or rubs. PMI is at fourth intercostal space at midclavicular line. LUNGS: Clear to auscultation bilaterally. ABDOMEN: Soft, nontender, and nondistended. No hepatosplenomegaly. Positive bowel sounds. EXTREMITIES: No evidence of edema, clubbing, or cyanosis. Tj Crespo MD Dec 10, 2017 20:51
[2017-12-10] MEDS ORDERED: Phytonadione 1 MG in D5W 55 ML IVPB ONE (22:00)
--- NOTE | 2017-12-10 22:41 | Diagnostic Imaging Report ---
History: DYSPNEA Exam: XR CXR 1 VIEW 2 total images Comparison: 12/09/2017 FINDINGS: Suggestion of mild pulmonary vascular congestion again seen. No evidence of focal consolidation or pleural effusion identified. The cardiac silhouette is again enlarged and not significantly changed. IMPRESSION: Suggestion of mild pulmonary vascular congestion again seen. No evidence of focal consolidation or pleural effusion identified. The cardiac silhouette is again enlarged and not significantly changed.
[2017-12-11] VITALS: BP 122/83
[2017-12-11] MEDS: Ipratropium 0.02% Inh Soln 2.5ml UD HHN SCH ×2 (01:11→09:30)
[2017-12-11] MEDS: D5 1/2NS 1,000 ML IV SCH ×3 (03:37→23:46)
[2017-12-11] MEDS: dilTIAZem HCl 90mg tab ORAL SCH ×4 (03:37→20:52)
[2017-12-11 04:00] VITALS: BP 123/83
[2017-12-11 05:57] LABS: BASOPHILS % (AUTO) 0.8 % (0.0-2.0); EOSINOPHILS % (AUTO) 7.2 % (0.0-3.0); HEMATOCRIT 36.7 % (42.0-52.0); HEMOGLOBIN 11.7 G/DL (14.2-18.0); LYMPHOCYTES % (AUTO) 24.1 % (20.0-45.0); MEAN CORPUSCULAR VOLUME 89 FL (80-99); MONOCYTES % (AUTO) 13.7 % (1.0-10.0); NEUTROPHILS % (AUTO) 54.2 % (45.0-75.0); PLATELET COUNT 130 K/UL (150-450); RED BLOOD COUNT 4.11 M/UL (4.70-6.10); RED CELL DISTRIBUTION WIDTH 15.2 % (11.6-14.8); WHITE BLOOD COUNT 4.3 K/UL (4.8-10.8)
[2017-12-11 06:01] LABS: INR 2.6 (0.9-1.1)
[2017-12-11 06:35] LABS: ALANINE AMINOTRANSFERASE 17 U/L (12-78); ALBUMIN 2.8 G/DL (3.4-5.0); ALBUMIN/GLOBULIN RATIO 0.7 (1.0-2.7); ALKALINE PHOSPHATASE 53 U/L (46-116); ANION GAP 9 mmol/L (5-15); ASPARTATE AMINO TRANSFERASE 18 U/L (15-37); BILIRUBIN,TOTAL 0.6 MG/DL (0.2-1.0); BLOOD UREA NITROGEN 17 mg/dL (7-18); CALCIUM 8.6 MG/DL (8.5-10.1); CARBON DIOXIDE 23 MMOL/L (21-32); CHLORIDE 108 MMOL/L (98-107); CREATININE 1.5 MG/DL (0.55-1.30); PHOSPHORUS 2.1 MG/DL (2.5-4.9); POTASSIUM 3.7 MMOL/L (3.5-5.1); SODIUM 140 MMOL/L (136-145)
[2017-12-11 07:58] VITALS: BP 144/75
[2017-12-11] MEDS: Docusate 100mg cap ORAL SCH ×3 (08:16→17:36)
[2017-12-11] MEDS: Depakote ER 250mg tab ORAL SCH ×2 (08:17→20:50)
[2017-12-11] MEDS: Digoxin 0.125mg tab ORAL SCH (08:17)
[2017-12-11] MEDS: Budesonide HHN 0.25mg/2ml ud HHN SCH ×2 (09:30→21:30)
--- NOTE | 2017-12-11 10:25 | Nephrology Progress Note ---
Assessment/Plan Problem List: (1) Acute on chronic renal failure (2) Atrial fibrillation with tachycardic ventricular rate (3) Seizure disorder (4) Diabetic nephropathy (5) Hypothyroid Assessment: adjust synthroid dose Assessment Renal failure due to pre renal azotemia due to underlying CHF- Cr 1.5 Afib : heart rate remains high Cardiomyopathy Acute CHF others: Acute Asthma/copd exacerbation seizures DM Cerebrovascular accident with right hemiplegia. Congestive heart failure - diastolic with the preserved ejection fraction. Benign prostatic hypertrophy. h/o Pneumonia- SVT , At fib- on anti coag h/o DVT- h/o HypoThyroidism h/o Gout Dementia HTN Plan due PEG in am mag and phos supplement adding Nitro HR management per Cms Expert digoxin PO upping the dose increase cardiazem Optimize cardiac and pulmonary status monitor renal parameters- avoid nephrotoxics- flomax adjust bp meds check labs discussed with CASPER MCKEON: Nonobstructive stones within the left kidney. Questionable nonobstructive stone in the right kidney. Noncontrast CT May BE of benefit for confirmation. No evidence of obstructive nephropathy. Multiple bilateral renal cysts. Subjective ROS Limited/Unobtainable: No Constitutional: Reports: malaise Objective Objective Last 24 Hour Vital Signs Date Time Temp Pulse Resp B/P (MAP) Pulse Ox O2 Delivery O2 Flow Rate FiO2 12/11/17 09:30 Nasal Cannula 2.0 12/11/17 09:30 2.0 28 12/11/17 09:30 Nasal Cannula 2.0 28 12/11/17 09:30 Nasal Cannula 2.0 12/11/17 09:30 97 Nasal Cannula 2.0 28 12/11/17 09:30 Nasal Cannula 2.0 12/11/17 08:17 90 144/75 12/11/17 08:17 90 12/11/17 08:16 90 144/75 12/11/17 07:58 97.3 90 20 144/75 (98) 96 97.3 12/11/17 04:00 133 12/11/17 04:00 97.5 133 20 123/83 (96) 95 97.5 12/11/17 03:37 133 123/87 12/11/17 01:11 129 20 99 Nasal Cannula 2.0 28 12/11/17 01:11 128 20 96 Nasal Cannula 2.0 28 9/16/18 00:00 132 12/11/17 00:00 97.0 132 20 122/83 (96) 98 97.0 12/10/17 21:57 129 119/96 12/10/17 21:42 129 18 98 Nasal Cannula 2.0 28 12/10/17 21:32 130 18 96 Nasal Cannula 2.0 28 12/10/17 21:00 Nasal Cannula 2.0 12/10/17 20:00 97.9 133 19 119/96 (104) 99 97.9 12/10/17 20:00 132 12/10/17 19:49 126 18 99 Nasal Cannula 2.0 28 12/10/17 19:39 95 Nasal Cannula 2.0 28 12/10/17 19:39 Nasal Cannula 2.0 28 12/10/17 19:39 126 18 95 Nasal Cannula 2.0 28 12/10/17 18:17 134 143/92 12/10/17 16:00 97.7 134 20 143/92 (109) 97 97.7 12/10/17 15:57 133 12/10/17 15:42 134 143/92 12/10/17 13:12 115 18 99 Nasal Cannula 2.0 12/10/17 13:07 111 18 98 Room Air 21 12/10/17 12:00 97.9 131 20 137/80 (99) 100 97.9 12/10/17 11:56 131 Intake and Output 12/10/17 12/11/17 19:00 07:00 Intake Total 972 ml 1193.5 ml Output Total 1000 ml Balance -28 ml 1193.5 ml IV Total 972 ml 1193.5 ml Output Urine Total 1000 ml # Voids 2 # Bowel Movements 2 Laboratory Tests 12/11/17 04:50: White Blood Count 4.3L, Red Blood Count 4.11L, Hemoglobin 11.7L, Hematocrit 36.7L, Mean Corpuscular Volume 89, Mean Corpuscular Hemoglobin 28.5, Mean Corpuscular Hemoglobin Concent 32.0, Red Cell Distribution Width 15.2H, Platelet Count 130L, Mean Platelet Volume 6.8, Neutrophils (%) (Auto) 54.2, Lymphocytes (%) (Auto) 24.1, Monocytes (%) (Auto) 13.7H, Eosinophils (%) (Auto) 7.2H, Basophils (%) (Auto) 0.8, Prothrombin Time 25.7H, Prothromb Time International Ratio 2.6H, Sodium Level 140, Potassium Level 3.7, Chloride Level 108H, Carbon Dioxide Level 23, Anion Gap 9, Blood Urea Nitrogen 17, Creatinine 1.5H, Estimat Glomerular Filtration Rate , Glucose Level 122H, Uric Acid 6.6, Calcium Level 8.6, Phosphorus Level 2.1L, Magnesium Level 1.5L, Total Bilirubin 0.6, Aspartate Amino Transf (AST/SGOT) 18, Alanine Aminotransferase (ALT/SGPT) 17, Alkaline Phosphatase 53, Troponin I 0.082H, Total Protein 7.1, Albumin 2.8L , Globulin 4.3, Albumin/Globulin Ratio 0.7L, Digoxin Level 1.1 Height (Feet): 6 Height (Inches): 0.00 Weight (Pounds): 218 General Appearance: no apparent distress Cardiovascular: other - variable rate- less tachy Respiratory/Chest: decreased breath sounds Abdomen: soft Objective no change Isaias Noe MD Dec 11, 2017 10:25
[2017-12-11] MEDS ORDERED: Digoxin 0.125mg tab ORAL SCH (10:30)
[2017-12-11] MEDS: Nitroglycerin Patch 0.4mg TDERMAL SCH (10:54)
[2017-12-11] MEDS ORDERED: Potassium Phosphate 15 MM in NS 275 ML IV SCH (11:30)
[2017-12-11 12:01] VITALS: BP 142/89
--- NOTE | 2017-12-11 14:25 | Infectious Diseases Prog Note ---
Assessment/Plan Problems: (1) HCAP (healthcare-associated pneumonia) Assessment & Plan: with basal infiltrates, improved, S/P zosyn empirically for 6 days, sputum culture is negative , monitor CXR. aspiration precaution , keep HOB> 30 degree all the time (2) Acute on chronic renal insufficiency Assessment & Plan: improving, avoid nephrotoxics, monitor renal function , renal is following (3) At high risk for aspiration Assessment & Plan: aspiration precaution, keep HOB > 30 Degree all the time (4) Acute CHF Assessment & Plan: with dyspnea continue diuresis , monitor daily weight , fluids restriction (5) COPD (chronic obstructive pulmonary disease) Assessment & Plan: with acute exacerbation due to the above, improving with antibiotics and nebulizers Subjective Constitutional: Reports: no symptoms HEENT: Reports: no symptoms Respiratory: Reports: no symptoms Breasts: Reports: no symptoms Cardiovascular: Reports: no symptoms Gastrointestinal/Abdominal: Reports: no symptoms Genitourinary: Reports: no symptoms Neurologic: Reports: no symptoms Psychiatric: Reports: no symptoms Skin: Reports: no symptoms Endocrine: Reports: no symptoms Hematologic: Reports: no symptoms Musculoskeletal: Reports: no symptoms Allergies: Coded Allergies: MARYANA INHIBITORS (Unverified Allergy, Unknown, 01/31/14) ARB-ANGIOTENSIN RECEPTOR ANTAGONIST (Unverified Allergy, Unknown, 01/31/14) Subjective he has no cough or SOB , breath better Objective Vital Signs Last 24 Hour Vital Signs Date Time Temp Pulse Resp B/P (MAP) Pulse Ox O2 Delivery O2 Flow Rate FiO2 12/11/17 12:01 97.6 79 20 142/89 (106) 97 97.6 12/11/17 11:18 90 12/11/17 10:54 144/75 12/11/17 09:30 Nasal Cannula 2.0 12/11/17 09:30 2.0 28 12/11/17 09:30 Nasal Cannula 2.0 28 12/11/17 09:30 Nasal Cannula 2.0 12/11/17 09:30 97 Nasal Cannula 2.0 28 12/11/17 09:30 Nasal Cannula 2.0 12/11/17 09:00 Nasal Cannula 2.0 12/11/17 08:17 90 144/75 12/11/17 08:17 90 12/11/17 08:16 90 144/75 12/11/17 08:00 89 12/11/17 07:58 97.3 90 20 144/75 (98) 96 97.3 12/11/17 04:00 133 12/11/17 04:00 97.5 133 20 123/83 (96) 95 97.5 12/11/17 03:37 133 123/87 12/11/17 01:11 129 20 99 Nasal Cannula 2.0 28 12/11/17 01:11 128 20 96 Nasal Cannula 2.0 28 12/11/17 00:00 132 12/11/17 00:00 97.0 132 20 122/83 (96) 98 97.0 12/10/17 21:57 129 119/96 12/10/17 21:42 129 18 98 Nasal Cannula 2.0 28 12/10/17 21:32 130 18 96 Nasal Cannula 2.0 28 12/10/17 21:00 Nasal Cannula 2.0 12/10/17 20:00 97.9 133 19 119/96 (104) 99 97.9 12/10/17 20:00 132 12/10/17 19:49 126 18 99 Nasal Cannula 2.0 28 12/10/17 19:39 95 Nasal Cannula 2.0 28 12/10/17 19:39 Nasal Cannula 2.0 28 12/10/17 19:39 126 18 95 Nasal Cannula 2.0 28 12/10/17 18:17 134 143/92 12/10/17 16:00 97.7 134 20 143/92 (109) 97 97.7 12/10/17 15:57 133 12/10/17 15:42 134 143/92 Height (Feet): 6 Height (Inches): 0.00 Weight (Pounds): 218 General Appearance: WD/WN, no acute distress HEENT: normocephalic, atraumatic, anicteric, mucous membranes moist, PERRL Respiratory/Chest: chest wall non-tender, no respiratory distress, no accessory muscle use, decreased breath sounds Cardiovascular: normal peripheral pulses, normal rate, regular rhythm, no gallop/murmur, no JVD Abdomen: normal bowel sounds, soft, non tender, no organomegaly, non distended , no mass, no scars Extremities: no cyanosis, no clubbing Skin: no rash, no lesions, no ulcers Neurologic/Psychiatric: alert, oriented x 3 Lymphatic: no neck adenopathy, no groin adenopathy Musculoskeletal: normal muscle bulk Objective Laboratory Tests Test 12/11/17 04:50 White Blood Count 4.3 K/UL (4.8-10.8) L Red Blood Count 4.11 M/UL (4.70-6.10) L Hemoglobin 11.7 G/DL (14.2-18.0) L Hematocrit 36.7 % (42.0-52.0) L Mean Corpuscular Volume 89 FL (80-99) Mean Corpuscular Hemoglobin 28.5 PG (27.0-31.0) Mean Corpuscular Hemoglobin Concent 32.0 G/DL (32.0-36.0) Red Cell Distribution Width 15.2 % (11.6-14.8) H Platelet Count 130 K/UL (150-450) L Mean Platelet Volume 6.8 FL (6.5-10.1) Neutrophils (%) (Auto) 54.2 % (45.0-75.0) Lymphocytes (%) (Auto) 24.1 % (20.0-45.0) Monocytes (%) (Auto) 13.7 % (1.0-10.0) H Eosinophils (%) (Auto) 7.2 % (0.0-3.0) H Basophils (%) (Auto) 0.8 % (0.0-2.0) Prothrombin Time 25.7 SEC (9.30-11.50) H Prothromb Time International Ratio 2.6 (0.9-1.1) H Sodium Level 140 MMOL/L (136-145) Potassium Level 3.7 MMOL/L (3.5-5.1) Chloride Level 108 MMOL/L (98-107) H Carbon Dioxide Level 23 MMOL/L (21-32) Anion Gap 9 mmol/L (5-15) Blood Urea Nitrogen 17 mg/dL (7-18) Creatinine 1.5 MG/DL (0.55-1.30) H Estimat Glomerular Filtration Rate mL/min (>60) Glucose Level 122 MG/DL (74-106) H Uric Acid 6.6 MG/DL (2.6-7.2) Calcium Level 8.6 MG/DL (8.5-10.1) Phosphorus Level 2.1 MG/DL (2.5-4.9) L Magnesium Level 1.5 MG/DL (1.8-2.4) L Total Bilirubin 0.6 MG/DL (0.2-1.0) Aspartate Amino Transf (AST/SGOT) 18 U/L (15-37) Alanine Aminotransferase (ALT/SGPT) 17 U/L (12-78) Alkaline Phosphatase 53 U/L (46-116) Troponin I 0.082 ng/mL (0.000-0.056) C-Reactive Protein, Quantitative 4.7 mg/dL (0.00-0.90) H Total Protein 7.1 G/DL (6.4-8.2) Albumin 2.8 G/DL (3.4-5.0) L Globulin 4.3 g/dL Albumin/Globulin Ratio 0.7 (1.0-2.7) L Digoxin Level 1.1 NG/ML (0.5-2.0) Current Medications Medications (Trade) Dose Ordered Sig/Con Route PRN Reason Start Time Stop Time Status Last Admin Dose Admin Acetaminophen (Tylenol) 650 mg Q4H PRN ORAL Mild Pain (Pain Scale 1-3) 12/03/17 23:00 01/02/18 22:59 Budesonide (Pulmicort) 0.25 mg EVERY 12 HOURS HHN 12/04/17 09:00 01/03/18 08:59 12/10/17 21:32 Dextrose (Dextrose 50%) 25 ml STAT PRN IV Hypoglycemia 12/03/17 23:00 01/02/18 22:59 Dextrose (Dextrose 50%) 50 ml STAT PRN IV Hypoglycemia 12/03/17 23:00 01/02/18 22:59 Dextrose/Sodium Chloride 1,000 ml @ 75 mls/hr [id number] IV 12/11/17 10:30 01/10/18 10:29 12/11/17 10:53 Digoxin (Lanoxin) 0.25 mg DAILY ORAL 12/12/17 09:00 01/09/18 08:59 Diltiazem HCl (Cardizem) 90 mg Q6H ORAL 12/10/17 15:00 01/09/18 14:59 12/11/17 08:17 Divalproex Sodium (Depakote ER) 250 mg EVERY 12 HOURS ORAL 12/04/17 09:00 10/9/18 08:59 12/11/17 08:17 Docusate Sodium (Colace) 100 mg TID ORAL 12/04/17 18:00 01/03/18 08:59 12/11/17 13:26 Famotidine (Pepcid) 20 mg BID ORAL 12/04/17 09:00 01/03/18 08:59 12/11/17 08:16 Folic Acid (Folate) 2 mg DAILY ORAL 12/06/17 13:00 01/05/18 12:59 12/11/17 08:17 Guaifenesin (Robitussin) 200 mg Q6H PRN PO cough & congestion 12/04/17 01:30 01/03/18 01:29 12/04/17 15:02 Levetiracetam (Keppra) 500 mg Q12HR ORAL 12/04/17 09:00 01/03/18 08:59 12/11/17 08:16 Levothyroxine Sodium (Synthroid) 50 mcg DAILY@0630 ORAL 12/08/17 06:30 01/05/18 06:29 12/11/17 05:46 Metoprolol Tartrate (Lopressor) 200 mg BID ORAL 12/09/17 09:00 01/08/18 08:59 12/11/17 08:16 Mirtazapine (Remeron) 15 mg BEDTIME ORAL 12/08/17 21:00 01/07/18 20:59 12/10/17 21:56 Nitroglycerin (Ntg) 1 patch Q24H TDERMAL 12/11/17 10:30 01/10/18 10:29 12/11/17 10:54 Potassium Phosphate 15 mm/ Sodium Chloride 280 ml @ 46.667 mls/ hr ONCE IV 12/11/17 11:30 12/11/17 17:30 12/11/17 11:48 Tamsulosin HCl (Flomax) 0.4 mg QHS ORAL 12/11/17 21:00 01/03/18 20:59 Lyssa Strong M.D. Dec 11, 2017 14:25
--- NOTE | 2017-12-11 15:41 | Cardiology Report ---
APPROVED REPORT EKG Measurement Heart [id number] Sinus tachycardia with 1st degree AV block Anterior infarct, age undetermined Marked ST abnormality, possible inferior subendocardial injury Abnormal ECG
[2017-12-11 16:00] VITALS: BP 132/70
[2017-12-11] MEDS ORDERED: D5 1/2NS 1000ml IV ONE (16:39)
--- NOTE | 2017-12-11 16:42 | Cardiology Progress Note ---
Assessment/Plan Assessment/Plan 1. Atrial flutter at rate of 120, converted today to atrial fibrillation with slow heart rates at time, continue metoprolol, diltiazem and digoxin, dig level in am, continue warfarin, INR is now normal following vitamin K 1mg SQ. 2. Possible chronic HFpEF due to atrial fibrillation. 3. Hypotension, resolved. 4. Hypothyroidism 5. Anemia 6. Hx of CVA Subjective Subjective Atrial flutter was converted to atrial fibrillation with controlled ventricular response at 54-79. Objective Last 24 Hour Vital Signs Date Time Temp Pulse Resp B/P (MAP) Pulse Ox O2 Delivery O2 Flow Rate FiO2 12/11/17 16:00 97.5 54 20 132/70 (90) 98 97.5 12/11/17 15:38 79 142/89 12/11/17 15:21 Nasal Cannula 2.0 12/11/17 15:21 Nasal Cannula 2.0 12/11/17 12:01 97.6 79 20 142/89 (106) 97 97.6 12/11/17 11:55 78 12/11/17 11:18 90 12/11/17 10:54 144/75 12/11/17 09:30 Nasal Cannula 2.0 12/11/17 09:30 2.0 28 12/11/17 09:30 Nasal Cannula 2.0 28 12/11/17 09:30 Nasal Cannula 2.0 12/11/17 09:30 97 Nasal Cannula 2.0 28 12/11/17 09:30 Nasal Cannula 2.0 12/11/17 09:00 Nasal Cannula 2.0 12/11/17 08:17 90 144/75 12/11/17 08:17 90 12/11/17 08:16 90 144/75 12/11/17 08:00 89 12/11/17 07:58 97.3 90 20 144/75 (98) 96 97.3 12/11/17 04:00 133 12/11/17 04:00 97.5 133 20 123/83 (96) 95 97.5 12/11/17 03:37 133 123/87 12/11/17 01:11 129 20 99 Nasal Cannula 2.0 28 12/11/17 01:11 128 20 96 Nasal Cannula 2.0 28 12/11/17 00:00 132 12/11/17 00:00 97.0 132 20 122/83 (96) 98 97.0 12/10/17 21:57 129 119/96 12/10/17 21:42 129 18 98 Nasal Cannula 2.0 28 12/10/17 21:32 130 18 96 Nasal Cannula 2.0 28 12/10/17 21:00 Nasal Cannula 2.0 12/10/17 20:00 97.9 133 19 119/96 (104) 99 97.9 12/10/17 20:00 132 12/10/17 19:49 126 18 99 Nasal Cannula 2.0 28 12/10/17 19:39 95 Nasal Cannula 2.0 28 12/10/17 19:39 Nasal Cannula 2.0 28 12/10/17 19:39 126 18 95 Nasal Cannula 2.0 28 12/10/17 18:17 134 143/92 Intake and Output 12/10/17 12/11/17 19:00 07:00 Intake Total 972 ml 1193.5 ml Output Total 1000 ml Balance -28 ml 1193.5 ml IV Total 972 ml 1193.5 ml Output Urine Total 1000 ml # Voids 2 # Bowel Movements 2 2D Echo: EF 50%, mod LVH, RVSP 53 mmHg, Grade I LVDD, Mod IA/MR, Small Nellie Eff. Laboratory Tests Test 12/11/17 04:50 White Blood Count 4.3 K/UL (4.8-10.8) L Red Blood Count 4.11 M/UL (4.70-6.10) L Hemoglobin 11.7 G/DL (14.2-18.0) L Hematocrit 36.7 % (42.0-52.0) L Mean Corpuscular Volume 89 FL (80-99) Mean Corpuscular Hemoglobin 28.5 PG (27.0-31.0) Mean Corpuscular Hemoglobin Concent 32.0 G/DL (32.0-36.0) Red Cell Distribution Width 15.2 % (11.6-14.8) H Platelet Count 130 K/UL (150-450) L Mean Platelet Volume 6.8 FL (6.5-10.1) Neutrophils (%) (Auto) 54.2 % (45.0-75.0) Lymphocytes (%) (Auto) 24.1 % (20.0-45.0) Monocytes (%) (Auto) 13.7 % (1.0-10.0) H Eosinophils (%) (Auto) 7.2 % (0.0-3.0) H Basophils (%) (Auto) 0.8 % (0.0-2.0) Prothrombin Time 25.7 SEC (9.30-11.50) H Prothromb Time International Ratio 2.6 (0.9-1.1) H Sodium Level 140 MMOL/L (136-145) Potassium Level 3.7 MMOL/L (3.5-5.1) Chloride Level 108 MMOL/L (98-107) H Carbon Dioxide Level 23 MMOL/L (21-32) Anion Gap 9 mmol/L (5-15) Blood Urea Nitrogen 17 mg/dL (7-18) Creatinine 1.5 MG/DL (0.55-1.30) H Estimat Glomerular Filtration Rate mL/min (>60) Glucose Level 122 MG/DL (74-106) H Uric Acid 6.6 MG/DL (2.6-7.2) Calcium Level 8.6 MG/DL (8.5-10.1) Phosphorus Level 2.1 MG/DL (2.5-4.9) L Magnesium Level 1.5 MG/DL (1.8-2.4) L Total Bilirubin 0.6 MG/DL (0.2-1.0) Aspartate Amino Transf (AST/SGOT) 18 U/L (15-37) Alanine Aminotransferase (ALT/SGPT) 17 U/L (12-78) Alkaline Phosphatase 53 U/L (46-116) Troponin I 0.082 ng/mL (0.000-0.056) C-Reactive Protein, Quantitative 4.7 mg/dL (0.00-0.90) H Total Protein 7.1 G/DL (6.4-8.2) Albumin 2.8 G/DL (3.4-5.0) L Globulin 4.3 g/dL Albumin/Globulin Ratio 0.7 (1.0-2.7) L Digoxin Level 1.1 NG/ML (0.5-2.0) Objective HEENT: Atraumatic and normocephalic. Anicteric. Pupils are equal, round, and reactive to light and accommodation. Extraocular muscles intact. NECK: JVP is less than 5 cm. No carotid bruit. Carotid upstrokes 2+ bilaterally. CARDIOVASCULAR SYSTEM: Normal S1, S2. Irregularly irregular rhythm. Tachycardic, No murmurs, gallops, or rubs. PMI is at fourth intercostal space at midclavicular line. LUNGS: Diminished bilaterally. ABDOMEN: Soft, nontender, and nondistended. No hepatosplenomegaly. Positive bowel sounds. EXTREMITIES: No evidence of edema, clubbing, or cyanosis. Tj Crespo MD Dec 11, 2017 16:42
[2017-12-11] MEDS: Tamsulosin 0.4mg cap ORAL SCH (20:52)
[2017-12-11 21:00] VITALS: BP 138/74
[2017-12-12] VITALS (10 sets, daily range): BP systolic 113–157; BP diastolic 56–89
[2017-12-12] MEDS: dilTIAZem HCl 90mg tab ORAL SCH ×4 (02:54→21:30)
[2017-12-12 06:02] LABS: BASOPHILS % (AUTO) 0.7 % (0.0-2.0); HEMATOCRIT 33.7 % (42.0-52.0); HEMOGLOBIN 10.9 G/DL (14.2-18.0); LYMPHOCYTES % (AUTO) 24.2 % (20.0-45.0); MEAN CORPUSCULAR VOLUME 89 FL (80-99); MONOCYTES % (AUTO) 12.8 % (1.0-10.0); NEUTROPHILS % (AUTO) 55.4 % (45.0-75.0); PLATELET COUNT 122 K/UL (150-450); RED BLOOD COUNT 3.79 M/UL (4.70-6.10); RED CELL DISTRIBUTION WIDTH 14.9 % (11.6-14.8); WHITE BLOOD COUNT 4.3 K/UL (4.8-10.8)
[2017-12-12 06:06] LABS: INR 1.5 (0.9-1.1)
[2017-12-12 06:19] LABS: ALANINE AMINOTRANSFERASE 13 U/L (12-78); ALBUMIN 2.4 G/DL (3.4-5.0); ALBUMIN/GLOBULIN RATIO 0.7 (1.0-2.7); ALKALINE PHOSPHATASE 47 U/L (46-116); ANION GAP 8 mmol/L (5-15); ASPARTATE AMINO TRANSFERASE 18 U/L (15-37); BILIRUBIN,TOTAL 0.6 MG/DL (0.2-1.0); BLOOD UREA NITROGEN 12 mg/dL (7-18); CALCIUM 8.2 MG/DL (8.5-10.1); CARBON DIOXIDE 24 MMOL/L (21-32); CHLORIDE 110 MMOL/L (98-107); CREATININE 1.5 MG/DL (0.55-1.30); POTASSIUM 3.6 MMOL/L (3.5-5.1); SODIUM 141 MMOL/L (136-145)
--- NOTE | 2017-12-12 06:26 | Anethesia Preoperative Eval ---
Anesthesia Pre-op PMH/ROS General Date of Evaluation: Dec 12, 2017 Time of Evaluation: 06:19 Anesthesiologist: rula ASA Score: ASA 4 Mallampati Score Class I : Soft palate, uvula, fauces, pillars visible Class II: Soft palate, uvula, fauces visible Class III: Soft palate, base of uvula visible Class IV: Only hard plate visible Mallampati Classification: Class II Surgeon: abhishek Diagnosis: dysphagia, malnutrition Surgical Procedure: peg Anesthesia History: none Family History: no anesthesia problems Allergies: Coded Allergies: MARYANA INHIBITORS (Unverified Allergy, Unknown, 01/31/14) ARB-ANGIOTENSIN RECEPTOR ANTAGONIST (Unverified Allergy, Unknown, 01/31/14) Medications: see eMAR Past Medical History Cardiovascular: Reports: arrhythmia, other - chf, cardiomyopathy, pacemaker Pulmonary: Reports: COPD, other - pneumonia Gastrointestinal/Genitourinary: Reports: CRI, ESRD - on hemodialysis Neurologic/Psychiatric: Reports: dementia, CVA, other - hemiplegia, seizure Endocrine: Reports: DM, hypothyroidism Hematology/Immune: Reports: other - sepsis Other: obesity - malnutrition Anesthesia Pre-op Phys. Exam Physician Exam Last Vital Signs Date Time Temp Pulse Resp B/P (MAP) Pulse Ox O2 Delivery O2 Flow Rate FiO2 12/12/17 04:00 88 12/12/17 04:00 97.7 20 120/67 (84) 95 97.7 12/11/17 21:50 Nasal Cannula 2.0 28 Constitutional: NAD Neurologic: other - right hemiplegia Cardiovascular: RRR Respiratory: CTA Airway Exam Mallampati Score: Class II MO: limited Neck: decreased rom to lateral rotation TMD: 2fb ROM: limited Teeth: missing Anesthesia Pre-op A/P Labs Hematology Test 12/12/17 05:00 White Blood Count 4.3 K/UL (4.8-10.8) L Red Blood Count 3.79 M/UL (4.70-6.10) L Hemoglobin 10.9 G/DL (14.2-18.0) L Hematocrit 33.7 % (42.0-52.0) L Mean Corpuscular Volume 89 FL (80-99) Mean Corpuscular Hemoglobin 28.8 PG (27.0-31.0) Mean Corpuscular Hemoglobin Concent 32.3 G/DL (32.0-36.0) Red Cell Distribution Width 14.9 % (11.6-14.8) H Platelet Count 122 K/UL (150-450) L Mean Platelet Volume 7.4 FL (6.5-10.1) Neutrophils (%) (Auto) 55.4 % (45.0-75.0) Lymphocytes (%) (Auto) 24.2 % (20.0-45.0) Monocytes (%) (Auto) 12.8 % (1.0-10.0) H Eosinophils (%) (Auto) 7.0 % (0.0-3.0) H Basophils (%) (Auto) 0.7 % (0.0-2.0) Coagulation Test 12/12/17 05:00 Prothrombin Time 15.1 SEC (9.30-11.50) H Prothromb Time International Ratio 1.5 (0.9-1.1) H Activated Partial Thromboplast Time 38 SEC (23-33) H Chemistry Test 12/12/17 05:00 Sodium Level Pending Potassium Level Pending Chloride Level Pending Carbon Dioxide Level Pending Blood Urea Nitrogen Pending Creatinine Pending Estimat Glomerular Filtration Rate Pending Glucose Level Pending Calcium Level Pending Phosphorus Level Pending Magnesium Level Pending Total Bilirubin Pending Aspartate Amino Transf (AST/SGOT) Pending Alanine Aminotransferase (ALT/SGPT) Pending Alkaline Phosphatase Pending Troponin I Pending Pro-B-Type Natriuretic Peptide Pending Total Protein Pending Albumin Pending Globulin Pending Risk Assessment & Plan Assessment: asa4 Plan: mac Status Change Before Surgery: No Pre-Antibiotics Given Within 1 Hr of Incision: Yes Heather Beavers MD Dec 12, 2017 06:26
[2017-12-12] MEDS ORDERED: fentaNYL 100 mcg/2 mL IV PRN (06:30)
[2017-12-12] MEDS ORDERED: Atropine Inj 1mg/10ml Syr IV PRN (06:30)
[2017-12-12] MEDS ORDERED: DiphenhydrAMINE 50mg/ml Inj IVP PRN (06:30)
[2017-12-12 07:02] LABS: PHOSPHORUS 2.8 MG/DL (2.5-4.9)
[2017-12-12] MEDS: Budesonide HHN 0.25mg/2ml ud HHN SCH ×2 (09:29→20:35)
[2017-12-12] MEDS ORDERED: Propofol 200mg/20ml IV ONE (09:30)
[2017-12-12] MEDS ORDERED: Lidocaine 1% MPF 10mg/ml 5ml ONE (09:30)
[2017-12-12] MEDS ORDERED: NS 500ML IVPB ONE (10:05)
[2017-12-12] MEDS ORDERED: cefOXitin 1gm Inj IVP ONE (10:48)
--- NOTE | 2017-12-12 10:49 | Pre-Procedure Note/Attestation ---
Pre-Procedure Note/Attestation Complete Prior to Procedure Planned Procedure: not applicable Procedure Narrative: esophagogastroduodenoscopy /PEG Indications for Procedure Pre-Operative Diagnosis: dysphagia Attestation I attest that I discussed the nature of the procedure; its benefits; risks and complications; and alternatives (and the risks and benefits of such alternatives ), prior to the procedure, with the patient (or the patient's legal termite control service representative). I attest that, if there was a reasonable possibility of needing a blood transfusion, the patient (or the patient's legal termite control service representative) was given the [facility] standardized written summary, pursuant to the Pato Radha Blood Safety Act ([place] Health and Safety Code # 1645, as amended). I attest that I re-evaluated the patient just prior to the surgery and that there has been no change in the patient's H&P, except as documented below: Anders Rashid MD Dec 12, 2017 10:49
--- NOTE | 2017-12-12 10:59 | Endoscopy Procedure Note ---
Endoscopy Procedure Note General Indication for Procedure: dysphagia Procedures Performed: EGD, PEG Operative Findings/Diagnosis: same Specimen: none Pt Tolerated Procedure Well: Yes Estimated Blood Loss: none Anesthesia Anesthesiologist: linwood Anesthesia: MAC Inserted Devices Implant(s) used?: No GI Core Measures 50 yrs or older w/o bx or poly: Not Applicable 10yrs. F/U not recommended: Not Applicable Anders Rashid MD Dec 12, 2017 10:59
--- NOTE | 2017-12-12 11:04 | Nephrology Progress Note ---
Assessment/Plan Problem List: (1) Acute on chronic renal failure (2) Atrial fibrillation with tachycardic ventricular rate (3) Seizure disorder (4) Diabetic nephropathy (5) Hypothyroid Assessment: adjust synthroid dose Assessment Renal failure due to pre renal azotemia due to underlying CHF- Cr 1.5 Afib : heart rate remains high Cardiomyopathy Acute CHF others: Acute Asthma/copd exacerbation seizures DM Cerebrovascular accident with right hemiplegia. Congestive heart failure - diastolic with the preserved ejection fraction. Benign prostatic hypertrophy. h/o Pneumonia- SVT , At fib- on anti coag h/o DVT- h/o HypoThyroidism h/o Gout Dementia HTN Plan due PEG today mag and phos supplement adding Nitro HR management per [employer] digoxin PO upping the dose increase cardiazem Optimize cardiac and pulmonary status monitor renal parameters- avoid nephrotoxics- flomax adjust bp meds check labs discussed with CASPER MCKEON: Nonobstructive stones within the left kidney. Questionable nonobstructive stone in the right kidney. Noncontrast CT May BE of benefit for confirmation. No evidence of obstructive nephropathy. Multiple bilateral renal cysts. Subjective ROS Limited/Unobtainable: No Objective Objective Last 24 Hour Vital Signs Date Time Temp Pulse Resp B/P (MAP) Pulse Ox O2 Delivery O2 Flow Rate FiO2 12/12/17 09:31 115 18 99 Room Air 21 12/12/17 09:22 115 6 95 Room Air 21 12/12/17 09:22 95 Room Air 21 12/12/17 09:22 Nasal Cannula 2.0 28 12/12/17 08:48 Nasal Cannula 2.0 12/12/17 08:38 98.1 80 20 130/76 (94) 95 98.1 12/12/17 08:00 91 12/12/17 04:00 88 12/12/17 04:00 97.7 69 20 120/67 (84) 95 97.7 12/12/17 02:54 87 123/68 12/12/17 00:00 87 12/12/17 00:00 97.5 87 20 123/68 (86) 95 97.5 12/11/17 21:50 119 18 99 Nasal Cannula 2.0 28 12/11/17 21:30 118 18 96 Room Air 21 12/11/17 21:00 Nasal Cannula 2.0 12/11/17 21:00 97.7 83 17 138/74 (95) 95 97.7 12/11/17 20:52 83 138/74 12/11/17 20:00 80 12/11/17 19:48 96 Room Air 21 12/11/17 19:48 Nasal Cannula 2.0 28 12/11/17 17:36 54 132/70 12/11/17 16:00 97.5 54 20 132/70 (90) 98 97.5 12/11/17 15:38 79 142/89 12/11/17 15:21 Nasal Cannula 2.0 12/11/17 15:21 Nasal Cannula 2.0 12/11/17 15:13 85 12/11/17 12:01 97.6 79 20 142/89 (106) 97 97.6 12/11/17 11:55 78 12/11/17 11:18 90 Intake and Output 12/11/17 12/12/17 19:00 07:00 Intake Total 75 ml 692 ml Output Total 325 ml 500 ml Balance -250 ml 192 ml IV Total 75 ml 692 ml Output Urine Total 325 ml 500 ml Current Medications Medications (Trade) Dose Ordered Sig/Con Route PRN Reason Start Time Stop Time Status Last Admin Dose Admin Acetaminophen (Tylenol) 650 mg Q4H PRN ORAL Mild Pain (Pain Scale 1-3) 12/03/17 23:00 01/02/18 22:59 Al Hydroxide/Mg Hydroxide (Mylanta) 15 ml Q1H PRN ORAL gi upset 12/12/17 06:30 12/12/17 14:00 Atropine Sulfate (Atropine) 0.5 mg Q5M PRN IV bpm less than 45 12/12/17 06:30 12/12/17 14:00 Budesonide (Pulmicort) 0.25 mg EVERY 12 HOURS HHN 12/04/17 09:00 01/03/18 08:59 12/12/17 09:29 Dextrose (Dextrose 50%) 25 ml STAT PRN IV Hypoglycemia 12/03/17 23:00 01/02/18 22:59 Dextrose (Dextrose 50%) 50 ml STAT PRN IV Hypoglycemia 12/03/17 23:00 01/02/18 22:59 Dextrose/Sodium Chloride 1,000 ml @ 75 mls/hr [id number] IV 12/11/17 10:30 01/10/18 10:29 12/11/17 23:46 Digoxin (Lanoxin) 0.25 mg DAILY ORAL 12/12/17 09:00 01/09/18 08:59 Diltiazem HCl (Cardizem) 90 mg Q6H ORAL 12/10/17 15:00 01/09/18 14:59 12/12/17 02:54 Diphenhydramine HCl (Benadryl) 25 mg Q15M PRN IVP Itching 12/12/17 06:30 12/12/17 14:00 Divalproex Sodium (Depakote ER) 250 mg EVERY 12 HOURS ORAL 12/04/17 09:00 01/03/18 08:59 12/11/17 20:50 Docusate Sodium (Colace) 100 mg TID ORAL 12/04/17 18:00 01/03/18 08:59 12/11/17 17:36 Famotidine (Pepcid) 20 mg BID ORAL 12/04/17 09:00 01/03/18 08:59 12/11/17 17:36 Fentanyl Citrate (Sublimaze 100 mcg/2 mL) 25 mcg Q10M PRN IV Moderate Pain (Pain Scale 4-6) 12/12/17 06:30 12/12/17 14:00 Folic Acid (Folate) 2 mg DAILY ORAL 12/06/17 13:00 01/05/18 12:59 12/11/17 08:17 Guaifenesin (Robitussin) 200 mg Q6H PRN PO cough & congestion 12/04/17 01:30 01/03/18 01:29 12/04/17 15:02 Hydralazine HCl (Apresoline) 5 mg Q30M PRN IV SBP>160 /DBP>90 12/12/17 06:30 12/12/17 14:00 Levetiracetam (Keppra) 500 mg Q12HR ORAL 12/04/17 09:00 01/03/18 08:59 12/11/17 20:50 Levothyroxine Sodium (Synthroid) 50 mcg DAILY@0630 ORAL 12/08/17 06:30 01/05/18 06:29 12/12/17 05:42 Metoprolol Tartrate (Lopressor) 200 mg BID ORAL 12/09/17 09:00 01/08/18 08:59 12/11/17 17:36 Mirtazapine (Remeron) 15 mg BEDTIME ORAL 12/08/17 21:00 01/07/18 20:59 12/11/17 20:52 Nitroglycerin (Ntg) 1 patch Q24H TDERMAL 12/11/17 10:30 01/10/18 10:29 12/11/17 10:54 Ondansetron HCl (Zofran) 4 mg Q1H PRN IVP Nausea & Vomiting 12/12/17 06:30 12/12/17 14:00 Tamsulosin HCl (Flomax) 0.4 mg QHS ORAL 12/11/17 21:00 01/03/18 20:59 12/11/17 20:52 Laboratory Tests 12/12/17 05:00: White Blood Count 4.3L, Red Blood Count 3.79L, Hemoglobin 10.9L, Hematocrit 33.7L, Mean Corpuscular Volume 89, Mean Corpuscular Hemoglobin 28.8, Mean Corpuscular Hemoglobin Concent 32.3, Red Cell Distribution Width 14.9H, Platelet Count 122L, Mean Platelet Volume 7.4, Neutrophils (%) (Auto) 55.4, Lymphocytes (%) (Auto) 24.2, Monocytes (%) (Auto) 12.8H, Eosinophils (%) (Auto) 7.0H, Basophils (%) (Auto) 0.7, Prothrombin Time 15.1H, Prothromb Time International Ratio 1.5H, Activated Partial Thromboplast Time 38H, Sodium Level 141, Potassium Level 3.6, Chloride Level 110H, Carbon Dioxide Level 24, Anion Gap 8, Blood Urea Nitrogen 12, Creatinine 1.5H, Estimat Glomerular Filtration Rate , Glucose Level 117H, Calcium Level 8.2L, Phosphorus Level 2.8, Magnesium Level 1.7L, Total Bilirubin 0.6, Aspartate Amino Transf (AST/SGOT) 18, Alanine Aminotransferase (ALT/SGPT) 13, Alkaline Phosphatase 47, Troponin I 0.059H, Pro- B-Type Natriuretic Peptide 6184H, Total Protein 6.0L, Albumin 2.4L, Globulin 3.6 , Albumin/Globulin Ratio 0.7L, Digoxin Level 1.6 Height (Feet): 6 Height (Inches): 0.00 Weight (Pounds): 218 General Appearance: no apparent distress Cardiovascular: arrhythmia, other - variable rate Respiratory/Chest: decreased breath sounds Abdomen: soft Objective no change Isaias Noe MD Dec 12, 2017 11:04
--- NOTE | 2017-12-12 11:30 | Procedure Note ---
DATE OF PROCEDURE: 12/12/2017 SURGEON: Anders Rashid M.D. ANESTHESIOLOGIST: Dr. Martin. PROCEDURE: Upper endoscopy with PEG placement. INSTRUMENT: Olympus adult flexible upper endoscope. INDICATION: Dysphagia. REASON FOR PROCEDURE: The procedure, risks, benefits, and possible consequences, including hemorrhage, aspiration, perforation and infection, and alternative treatments, were explained to the patient/legal guardian by Dr. Anders Rashid and the patient/legal guardian understood and accepted these risks. DESCRIPTION OF PROCEDURE: After informed consent was obtained and the patient was adequately sedated, Olympus upper endoscope was advanced from the mouth into the second portion of duodenum and retroflexion was performed in the stomach. Then, under endoscopic guidance, under sterile condition, a 20-[place] pull type of G-tube was successfully placed in epigastric area. The distance from the tip of the tube to skin was about 3 cm in size. The patient tolerated procedure very well without any complication. SUMMARY OF FINDINGS: Status post successful PEG placement. RECOMMENDATIONS: Abdominal binder. Elevate the head of the bed at all times. G-tube flush. G-tube care. Start tube feeding later today. The patient received a dose of antibiotics prior to this procedure. I want to thank Dr. Geiger, for this kind referral. Anders Rashid M.D. DR: TIEN JOB#: [id number] CC: Ondina Geiger M.D.; Fax#: [phone]
[2017-12-12] MEDS: Depakote ER 250mg tab ORAL SCH ×2 (12:31→21:30)
[2017-12-12] MEDS: Docusate 100mg cap ORAL SCH ×3 (12:31→17:22)
[2017-12-12] MEDS: D5 1/2NS 1,000 ML IV SCH (12:32)
[2017-12-12] MEDS: Nitroglycerin Patch 0.4mg TDERMAL SCH (12:33)
--- NOTE | 2017-12-12 13:01 | General Progress Note ---
Assessment/Plan Assessment/Plan S: I am doing ok O: appears comfortable. improved sob. Dementia, limited source of information PHYSICAL EXAMINATION: HEAD AND NECK: Atraumatic and normocephalic. CHEST: Bronchial BS, No wheezing, HEART: S1 and S2. IRegular rate and rhythm. ABDOMEN: Soft. No organomegaly. PEG tube in place MUSCULOSKELETAL: Positive for right hemiplegia at baseline. NEUROLOGY: The patient is awake. right side weakness, alert and oriented x2 at baseline. Meds: reviewed and reconciled including Zosyn ASSESSMENT AND PLAN: 1. Acute Hypoxemic RF, CHF exacerbation vs Brochitis vs Chemical aspiration 2. Seizures d/o 2. Dementia. 3. Cerebrovascular accident with right hemiplegia. 4. Atrial fibrillation with controlled rate on therapeutic ATC. 5. Congestive heart failure - diastolic with the preserved ejection fraction. 6. Hypothyroidism. 7. Hypertension. 8. Acute on chronic renal failure, 9. Benign prostatic hypertrophy. 10. Gastrointestinal and deep vein thrombosis prophylaxes. 11. Dysphagi- Severe PLAN OF CARE: stable basal infiltrates, New asp ? Volume overload? Increased the Levothyroxin. S/P PEG t placement. DCP in progress. Subjective Allergies: Coded Allergies: MARYANA INHIBITORS (Unverified Allergy, Unknown, 01/31/14) ARB-ANGIOTENSIN RECEPTOR ANTAGONIST (Unverified Allergy, Unknown, 01/31/14) Objective Last 24 Hour Vital Signs Date Time Temp Pulse Resp B/P (MAP) Pulse Ox O2 Delivery O2 Flow Rate FiO2 12/12/17 12:33 135/89 12/12/17 12:32 84 135/89 12/12/17 12:31 84 12/12/17 12:31 84 135/89 12/12/17 11:45 98 92 18 113/67 97 Nasal Cannula 3 97 98.0 12/12/17 11:45 97.9 84 17 135/89 98 Nasal Cannula 3 97.9 12/12/17 11:30 82 17 142/76 95 Nasal Cannula 3 12/12/17 11:15 88 20 115/68 96 Nasal Cannula 3 12/12/17 11:05 98 92 18 113/67 97 Nasal Cannula 3 97 98.0 12/12/17 09:31 115 18 99 Room Air 21 12/12/17 09:22 115 6 95 Room Air 21 12/12/17 09:22 95 Room Air 21 12/12/17 09:22 Nasal Cannula 2.0 28 12/12/17 08:48 Nasal Cannula 2.0 12/12/17 08:38 98.1 80 20 130/76 (94) 95 98.1 12/12/17 08:00 91 12/12/17 04:00 88 12/12/17 04:00 97.7 69 20 120/67 (84) 95 97.7 12/12/17 02:54 87 123/68 12/12/17 00:00 87 12/12/17 00:00 97.5 87 20 123/68 (86) 95 97.5 12/11/17 21:50 119 18 99 Nasal Cannula 2.0 28 12/11/17 21:30 118 18 96 Room Air 21 12/11/17 21:00 Nasal Cannula 2.0 12/11/17 21:00 97.7 83 17 138/74 (95) 95 97.7 12/11/17 20:52 83 138/74 12/11/17 20:00 80 12/11/17 19:48 96 Room Air 21 12/11/17 19:48 Nasal Cannula 2.0 28 12/11/17 17:36 54 132/70 12/11/17 16:00 97.5 54 20 132/70 (90) 98 97.5 12/11/17 15:38 79 142/89 12/11/17 15:21 Nasal Cannula 2.0 12/11/17 15:21 Nasal Cannula 2.0 12/11/17 15:13 85 Intake and Output 12/11/17 12/12/17 19:00 07:00 Intake Total 75 ml 692 ml Output Total 325 ml 500 ml Balance -250 ml 192 ml IV Total 75 ml 692 ml Output Urine Total 325 ml 500 ml Laboratory Tests 12/12/17 05:00: White Blood Count 4.3L, Red Blood Count 3.79L, Hemoglobin 10.9L, Hematocrit 33.7L, Mean Corpuscular Volume 89, Mean Corpuscular Hemoglobin 28.8, Mean Corpuscular Hemoglobin Concent 32.3, Red Cell Distribution Width 14.9H, Platelet Count 122L, Mean Platelet Volume 7.4, Neutrophils (%) (Auto) 55.4, Lymphocytes (%) (Auto) 24.2, Monocytes (%) (Auto) 12.8H, Eosinophils (%) (Auto) 7.0H, Basophils (%) (Auto) 0.7, Prothrombin Time 15.1H, Prothromb Time International Ratio 1.5H, Activated Partial Thromboplast Time 38H, Sodium Level 141, Potassium Level 3.6, Chloride Level 110H, Carbon Dioxide Level 24, Anion Gap 8, Blood Urea Nitrogen 12, Creatinine 1.5H, Estimat Glomerular Filtration Rate , Glucose Level 117H, Calcium Level 8.2L, Phosphorus Level 2.8, Magnesium Level 1.7L, Total Bilirubin 0.6, Aspartate Amino Transf (AST/SGOT) 18, Alanine Aminotransferase (ALT/SGPT) 13, Alkaline Phosphatase 47, Troponin I 0.059H, Pro- B-Type Natriuretic Peptide 6184H, Total Protein 6.0L, Albumin 2.4L, Globulin 3.6 , Albumin/Globulin Ratio 0.7L, Digoxin Level 1.6 Height (Feet): 6 Height (Inches): 0.00 Weight (Pounds): 218 Ondina Geiger MD Dec 12, 2017 13:01
--- NOTE | 2017-12-12 13:36 | Pulmonology Progress Note ---
Assessment/Plan Assessment/Plan ASSESSMENT: The patient is an 82-year-old male with a snf resident with a history of chronic obstructive pulmonary disease, congestive heart failure, chronic kidney disease, dementia, prior cerebrovascular accident, and chronic atrial fibrillation, presenting with shortness of breath likely secondary to decompensated heart failure. He is also on Zosyn for possible aspiration and healthcare associated pneumonia. PROBLEM LIST: 1. Acute hypoxemic respiratory failure likely secondary to decompensated heart failure. 2. Bibasilar opacities, likely edema, possible aspiration. 3. Chronic obstructive pulmonary disease. 4. Congestive heart failure with acute decompensated heart failure. 5. Chronic atrial fibrillation. 6. Dementia. 7. Prior cerebrovascular accident. 8. Chronic kidney disease. 9. long-term resident. 10. Dysphagia S/P PEG 12/12 11. Coagulopathy TREATMENT PLAN: 1. Optimize pulmonary hygiene/mobilize as tolerated. 2. PRN O2 3. ATROVENT only HHN's 4. Continue b.i.d. budesonide. 5. Observe off Abx per ID 6. Monitor volumes and renal function, PRN Diuretics 7. NPO, start GTF's 8. DVT PROPHYLAXIS: ? Resume A/C (was held for PEG) 9. The patient is Full Code, continue to discuss goals of care. Subjective Allergies: Coded Allergies: MARYANA INHIBITORS (Unverified Allergy, Unknown, 01/31/14) ARB-ANGIOTENSIN RECEPTOR ANTAGONIST (Unverified Allergy, Unknown, 01/31/14) Subjective Rate controlled AF, VSS, O2 needs stable, S/P PEG, awaiting TF"s Denies cough, no SOB, no F/C Objective Last 24 Hour Vital Signs Date Time Temp Pulse Resp B/P (MAP) Pulse Ox O2 Delivery O2 Flow Rate FiO2 12/12/17 12:33 135/89 12/12/17 12:32 84 135/89 12/12/17 12:31 84 12/12/17 12:31 84 135/89 12/12/17 12:00 97.5 89 21 156/56 (89) 95 97.5 12/12/17 11:45 98 92 18 113/67 97 Nasal Cannula 3 97 98.0 12/12/17 11:45 97.9 84 17 135/89 98 Nasal Cannula 3 97.9 12/12/17 11:30 82 17 142/76 95 Nasal Cannula 3 12/12/17 11:15 88 20 115/68 96 Nasal Cannula 3 12/12/17 11:05 98 92 18 113/67 97 Nasal Cannula 3 97 98.0 12/12/17 09:31 115 18 99 Room Air 21 12/12/17 09:22 115 6 95 Room Air 21 12/12/17 09:22 95 Room Air 21 12/12/17 09:22 Nasal Cannula 2.0 28 12/12/17 08:48 Nasal Cannula 2.0 12/12/17 08:38 98.1 80 20 130/76 (94) 95 98.1 12/12/17 08:00 91 12/12/17 04:00 88 12/12/17 04:00 97.7 69 20 120/67 (84) 95 97.7 12/12/17 02:54 87 123/68 12/12/17 00:00 87 12/12/17 00:00 97.5 87 20 123/68 (86) 95 97.5 12/11/17 21:50 119 18 99 Nasal Cannula 2.0 28 12/11/17 21:30 118 18 96 Room Air 21 12/11/17 21:00 Nasal Cannula 2.0 12/11/17 21:00 97.7 83 17 138/74 (95) 95 97.7 12/11/17 20:52 83 138/74 12/11/17 20:00 80 12/11/17 19:48 96 Room Air 21 12/11/17 19:48 Nasal Cannula 2.0 28 12/11/17 17:36 54 132/70 12/11/17 16:00 97.5 54 20 132/70 (90) 98 97.5 12/11/17 15:38 79 142/89 12/11/17 15:21 Nasal Cannula 2.0 12/11/17 15:21 Nasal Cannula 2.0 12/11/17 15:13 85 Intake and Output 12/11/17 12/12/17 19:00 07:00 Intake Total 75 ml 692 ml Output Total 325 ml 500 ml Balance -250 ml 192 ml IV Total 75 ml 692 ml Output Urine Total 325 ml 500 ml General Appearance: WD/WN, no acute distress HEENT: normocephalic, atraumatic, anicteric, mucous membranes moist Respiratory/Chest: chest wall non-tender, lungs clear, normal breath sounds, no respiratory distress Cardiovascular: irregularly irregular Abdomen: normal bowel sounds, soft, non tender, no organomegaly, non distended , no mass, other - GT Extremities: no cyanosis, no clubbing, no edema Laboratory Tests 12/12/17 05:00: White Blood Count 4.3L, Red Blood Count 3.79L, Hemoglobin 10.9L, Hematocrit 33.7L, Mean Corpuscular Volume 89, Mean Corpuscular Hemoglobin 28.8, Mean Corpuscular Hemoglobin Concent 32.3, Red Cell Distribution Width 14.9H, Platelet Count 122L, Mean Platelet Volume 7.4, Neutrophils (%) (Auto) 55.4, Lymphocytes (%) (Auto) 24.2, Monocytes (%) (Auto) 12.8H, Eosinophils (%) (Auto) 7.0H, Basophils (%) (Auto) 0.7, Prothrombin Time 15.1H, Prothromb Time International Ratio 1.5H, Activated Partial Thromboplast Time 38H, Sodium Level 141, Potassium Level 3.6, Chloride Level 110H, Carbon Dioxide Level 24, Anion Gap 8, Blood Urea Nitrogen 12, Creatinine 1.5H, Estimat Glomerular Filtration Rate , Glucose Level 117H, Calcium Level 8.2L, Phosphorus Level 2.8, Magnesium Level 1.7L, Total Bilirubin 0.6, Aspartate Amino Transf (AST/SGOT) 18, Alanine Aminotransferase (ALT/SGPT) 13, Alkaline Phosphatase 47, Troponin I 0.059H, Pro- B-Type Natriuretic Peptide 6184H, Total Protein 6.0L, Albumin 2.4L, Globulin 3.6 , Albumin/Globulin Ratio 0.7L, Digoxin Level 1.6 Current Medications Medications (Trade) Dose Ordered Sig/Con Route PRN Reason Start Time Stop Time Status Last Admin Dose Admin Acetaminophen (Tylenol) 650 mg Q4H PRN ORAL Mild Pain (Pain Scale 1-3) 12/03/17 23:00 01/02/18 22:59 Al Hydroxide/Mg Hydroxide (Mylanta) 15 ml Q1H PRN ORAL gi upset 12/12/17 06:30 12/12/17 14:00 Atropine Sulfate (Atropine) 0.5 mg Q5M PRN IV bpm less than 45 12/12/17 06:30 12/12/17 14:00 Budesonide (Pulmicort) 0.25 mg EVERY 12 HOURS HHN 12/04/17 09:00 01/03/18 08:59 12/12/17 09:29 Dextrose (Dextrose 50%) 25 ml STAT PRN IV Hypoglycemia 12/03/17 23:00 01/02/18 22:59 Dextrose (Dextrose 50%) 50 ml STAT PRN IV Hypoglycemia 12/03/17 23:00 01/02/18 22:59 Dextrose/Sodium Chloride 1,000 ml @ 75 mls/hr [id number] IV 12/11/17 10:30 01/10/18 10:29 12/12/17 12:32 Digoxin (Lanoxin) 0.25 mg DAILY ORAL 12/12/17 09:00 01/09/18 08:59 12/12/17 12:31 Diltiazem HCl (Cardizem) 90 mg Q6H ORAL 12/10/17 15:00 01/09/18 14:59 12/12/17 12:31 Diphenhydramine HCl (Benadryl) 25 mg Q15M PRN IVP Itching 12/12/17 06:30 12/12/17 14:00 Divalproex Sodium (Depakote ER) 250 mg EVERY 12 HOURS ORAL 12/04/17 09:00 01/03/18 08:59 12/12/17 12:31 Docusate Sodium (Colace) 100 mg TID ORAL 12/04/17 18:00 01/03/18 08:59 12/12/17 12:31 Famotidine (Pepcid) 20 mg BID ORAL 12/04/17 09:00 01/03/18 08:59 12/12/17 12:31 Fentanyl Citrate (Sublimaze 100 mcg/2 mL) 25 mcg Q10M PRN IV Moderate Pain (Pain Scale 4-6) 12/12/17 06:30 12/12/17 14:00 Folic Acid (Folate) 2 mg DAILY ORAL 12/06/17 13:00 01/05/18 12:59 12/12/17 12:31 Guaifenesin (Robitussin) 200 mg Q6H PRN PO cough & congestion 12/04/17 01:30 01/03/18 01:29 12/04/17 15:02 Hydralazine HCl (Apresoline) 5 mg Q30M PRN IV SBP>160 /DBP>90 12/12/17 06:30 12/12/17 14:00 Levetiracetam (Keppra) 500 mg Q12HR ORAL 12/04/17 09:00 01/03/18 08:59 12/12/17 12:30 Levothyroxine Sodium (Synthroid) 50 mcg DAILY@0630 ORAL 12/08/17 06:30 01/05/18 06:29 12/12/17 05:42 Metoprolol Tartrate (Lopressor) 200 mg BID ORAL 12/09/17 09:00 01/08/18 08:59 12/12/17 12:32 Mirtazapine (Remeron) 15 mg BEDTIME ORAL 12/08/17 21:00 01/07/18 20:59 12/11/17 20:52 Nitroglycerin (Ntg) 1 patch Q24H TDERMAL 12/11/17 10:30 01/10/18 10:29 12/12/17 12:33 Ondansetron HCl (Zofran) 4 mg Q1H PRN IVP Nausea & Vomiting 12/12/17 06:30 12/12/17 14:00 Tamsulosin HCl (Flomax) 0.4 mg QHS ORAL 12/11/17 21:00 01/03/18 20:59 12/11/17 20:52 Luther Carroll MD Dec 12, 2017 13:36
[2017-12-12] MEDS ORDERED: Ipratropium 0.02% Inh Soln 2.5ml UD HHN PRN (13:45)
--- NOTE | 2017-12-12 14:40 | Infectious Diseases Prog Note ---
Assessment/Plan Problems: (1) HCAP (healthcare-associated pneumonia) Assessment & Plan: with basal infiltrates, improved, S/P zosyn empirically for 6 days, sputum culture grew elizabet spp which is colonization. keep in aspiration precaution , keep HOB> 30 degree all the time (2) Acute on chronic renal insufficiency Assessment & Plan: improving, avoid nephrotoxics, monitor renal function , renal is following (3) At high risk for aspiration Assessment & Plan: aspiration precaution, keep HOB > 30 Degree all the time (4) Acute CHF Assessment & Plan: with dyspnea continue diuresis , monitor daily weight , fluids restriction (5) COPD (chronic obstructive pulmonary disease) Assessment & Plan: with acute exacerbation due to the above, improving , continue nebulizers Subjective Constitutional: Reports: no symptoms HEENT: Reports: no symptoms Respiratory: Reports: no symptoms Breasts: Reports: no symptoms Cardiovascular: Reports: no symptoms Gastrointestinal/Abdominal: Reports: no symptoms Genitourinary: Reports: no symptoms Neurologic: Reports: no symptoms Psychiatric: Reports: no symptoms Skin: Reports: no symptoms Endocrine: Reports: no symptoms Hematologic: Reports: no symptoms Musculoskeletal: Reports: no symptoms Allergies: Coded Allergies: MARYANA INHIBITORS (Unverified Allergy, Unknown, 01/31/14) ARB-ANGIOTENSIN RECEPTOR ANTAGONIST (Unverified Allergy, Unknown, 01/31/14) Subjective he has no cough or SOB , breath better Objective Vital Signs Last 24 Hour Vital Signs Date Time Temp Pulse Resp B/P (MAP) Pulse Ox O2 Delivery O2 Flow Rate FiO2 12/12/17 12:33 135/89 12/12/17 12:32 84 135/89 12/12/17 12:31 84 12/12/17 12:31 84 135/89 12/12/17 12:00 97.5 89 21 156/56 (89) 95 97.5 12/12/17 11:45 98 92 18 113/67 97 Nasal Cannula 3 97 98.0 12/12/17 11:45 97.9 84 17 135/89 98 Nasal Cannula 3 97.9 12/12/17 11:30 82 17 142/76 95 Nasal Cannula 3 12/12/17 11:15 88 20 115/68 96 Nasal Cannula 3 12/12/17 11:05 98 92 18 113/67 97 Nasal Cannula 3 97 98.0 12/12/17 09:31 115 18 99 Room Air 21 12/12/17 09:22 115 6 95 Room Air 21 12/12/17 09:22 95 Room Air 21 12/12/17 09:22 Nasal Cannula 2.0 28 12/12/17 08:48 Nasal Cannula 2.0 12/12/17 08:38 98.1 80 20 130/76 (94) 95 98.1 12/12/17 08:00 91 12/12/17 04:00 88 12/12/17 04:00 97.7 69 20 120/67 (84) 95 97.7 12/12/17 02:54 87 123/68 12/12/17 00:00 87 12/12/17 00:00 97.5 87 20 123/68 (86) 95 97.5 12/11/17 21:50 119 18 99 Nasal Cannula 2.0 28 12/11/17 21:30 118 18 96 Room Air 21 12/11/17 21:00 Nasal Cannula 2.0 12/11/17 21:00 97.7 83 17 138/74 (95) 95 97.7 12/11/17 20:52 83 138/74 12/11/17 20:00 80 12/11/17 19:48 96 Room Air 21 12/11/17 19:48 Nasal Cannula 2.0 28 12/11/17 17:36 54 132/70 12/11/17 16:00 97.5 54 20 132/70 (90) 98 97.5 12/11/17 15:38 79 142/89 12/11/17 15:21 Nasal Cannula 2.0 12/11/17 15:21 Nasal Cannula 2.0 12/11/17 15:13 85 Height (Feet): 6 Height (Inches): 0.00 Weight (Pounds): 218 General Appearance: WD/WN, no acute distress HEENT: normocephalic, atraumatic, anicteric, mucous membranes moist, PERRL Respiratory/Chest: chest wall non-tender, normal breath sounds, no respiratory distress, no accessory muscle use, decreased breath sounds Cardiovascular: normal peripheral pulses, normal rate, regular rhythm, no gallop/murmur, no JVD Abdomen: normal bowel sounds, soft, non tender, no organomegaly, non distended , no mass, no scars Extremities: no cyanosis, no clubbing Skin: no rash, no lesions, no ulcers Neurologic/Psychiatric: alert, oriented x 3, responsive Lymphatic: no neck adenopathy, no groin adenopathy Musculoskeletal: normal muscle bulk, no effusion Objective Laboratory Tests Test 12/12/17 05:00 White Blood Count 4.3 K/UL (4.8-10.8) L Red Blood Count 3.79 M/UL (4.70-6.10) L Hemoglobin 10.9 G/DL (14.2-18.0) L Hematocrit 33.7 % (42.0-52.0) L Mean Corpuscular Volume 89 FL (80-99) Mean Corpuscular Hemoglobin 28.8 PG (27.0-31.0) Mean Corpuscular Hemoglobin Concent 32.3 G/DL (32.0-36.0) Red Cell Distribution Width 14.9 % (11.6-14.8) H Platelet Count 122 K/UL (150-450) L Mean Platelet Volume 7.4 FL (6.5-10.1) Neutrophils (%) (Auto) 55.4 % (45.0-75.0) Lymphocytes (%) (Auto) 24.2 % (20.0-45.0) Monocytes (%) (Auto) 12.8 % (1.0-10.0) H Eosinophils (%) (Auto) 7.0 % (0.0-3.0) H Basophils (%) (Auto) 0.7 % (0.0-2.0) Prothrombin Time 15.1 SEC (9.30-11.50) H Prothromb Time International Ratio 1.5 (0.9-1.1) H Activated Partial Thromboplast Time 38 SEC (23-33) H Sodium Level 141 MMOL/L (136-145) Potassium Level 3.6 MMOL/L (3.5-5.1) Chloride Level 110 MMOL/L (98-107) H Carbon Dioxide Level 24 MMOL/L (21-32) Anion Gap 8 mmol/L (5-15) Blood Urea Nitrogen 12 mg/dL (7-18) Creatinine 1.5 MG/DL (0.55-1.30) H Estimat Glomerular Filtration Rate mL/min (>60) Glucose Level 117 MG/DL (74-106) H Calcium Level 8.2 MG/DL (8.5-10.1) L Phosphorus Level 2.8 MG/DL (2.5-4.9) Magnesium Level 1.7 MG/DL (1.8-2.4) L Total Bilirubin 0.6 MG/DL (0.2-1.0) Aspartate Amino Transf (AST/SGOT) 18 U/L (15-37) Alanine Aminotransferase (ALT/SGPT) 13 U/L (12-78) Alkaline Phosphatase 47 U/L (46-116) Troponin I 0.059 ng/mL (0.000-0.056) Pro-B-Type Natriuretic Peptide 6184 pg/mL (0-125) H Total Protein 6.0 G/DL (6.4-8.2) L Albumin 2.4 G/DL (3.4-5.0) L Globulin 3.6 g/dL Albumin/Globulin Ratio 0.7 (1.0-2.7) L Digoxin Level 1.6 NG/ML (0.5-2.0) Current Medications Medications (Trade) Dose Ordered Sig/Con Route PRN Reason Start Time Stop Time Status Last Admin Dose Admin Acetaminophen (Tylenol) 650 mg Q4H PRN ORAL Mild Pain (Pain Scale 1-3) 12/03/17 23:00 01/02/18 22:59 Budesonide (Pulmicort) 0.25 mg EVERY 12 HOURS HHN 12/04/17 09:00 01/03/18 08:59 12/12/17 09:29 Dextrose (Dextrose 50%) 25 ml STAT PRN IV Hypoglycemia 12/03/17 23:00 01/02/18 22:59 Dextrose (Dextrose 50%) 50 ml STAT PRN IV Hypoglycemia 12/03/17 23:00 01/02/18 22:59 Dextrose/Sodium Chloride 1,000 ml @ 75 mls/hr [id number] IV 12/11/17 10:30 01/10/18 10:29 12/12/17 12:32 Digoxin (Lanoxin) 0.25 mg DAILY ORAL 12/12/17 09:00 01/09/18 08:59 12/12/17 12:31 Diltiazem HCl (Cardizem) 90 mg Q6H ORAL 12/10/17 15:00 01/09/18 14:59 12/12/17 12:31 Divalproex Sodium (Depakote ER) 250 mg EVERY 12 HOURS ORAL 12/04/17 09:00 01/03/18 08:59 12/12/17 12:31 Docusate Sodium (Colace) 100 mg TID ORAL 12/04/17 18:00 01/03/18 08:59 12/12/17 12:31 Famotidine (Pepcid) 20 mg BID ORAL 12/04/17 09:00 01/03/18 08:59 12/12/17 12:31 Folic Acid (Folate) 2 mg DAILY ORAL 12/06/17 13:00 01/05/18 12:59 12/12/17 12:31 Guaifenesin (Robitussin) 200 mg Q6H PRN PO cough & congestion 12/04/17 01:30 01/03/18 01:29 12/04/17 15:02 Ipratropium [place] (Atrovent) 500 mcg Q4H PRN HHN Shortness of Breath 12/12/17 13:45 12/17/17 13:44 Ipratropium [place] (Atrovent) 500 mcg TIDRT HHN 12/12/17 19:00 12/17/17 18:59 Levetiracetam (Keppra) 500 mg Q12HR ORAL 12/04/17 09:00 01/03/18 08:59 12/12/17 12:30 Levothyroxine Sodium (Synthroid) 50 mcg DAILY@0630 ORAL 12/08/17 06:30 01/05/18 06:29 12/12/17 05:42 Metoprolol Tartrate (Lopressor) 200 mg BID ORAL 12/09/17 09:00 01/08/18 08:59 12/12/17 12:32 Mirtazapine (Remeron) 15 mg BEDTIME ORAL 12/08/17 21:00 01/07/18 20:59 12/11/17 20:52 Nitroglycerin (Ntg) 1 patch Q24H TDERMAL 12/11/17 10:30 01/10/18 10:29 12/12/17 12:33 Tamsulosin HCl (Flomax) 0.4 mg QHS ORAL 12/11/17 21:00 01/03/18 20:59 12/11/17 20:52 Lyssa Strong M.D. Dec 12, 2017 14:40
--- NOTE | 2017-12-12 14:44 | Immediate Post-Op Evaluation ---
Immediate Post-Op Evalulation Immediate Post-Op Evalulation Procedure: EGD/PEG Date of Evaluation: Dec 12, 2017 Time of Evaluation: 11:17 IV Fluids: 350ML 0.9NS Blood Products: NONE Estimated Blood Loss: NEGLIGIBLE Blood Pressure Systolic: 113 Blood Pressure Diastolic: 67 Pulse Rate: 92 Respiratory Rate: 18 O2 Sat by Pulse Oximetry: 97 Temperature (Fahrenheit): 98.3 Pain Score (1-10): 0 Nausea: No Vomiting: No Complications NONE Patient Status: awake, reacts, patent Hydration Status: adequate Drug: Heather Hong MD Dec 12, 2017 14:44
--- NOTE | 2017-12-12 14:46 | 48 Hour Post Anesthesia Eval ---
Post Anesthesia Evaluation Procedure: EGD/PEG Date of Evaluation: Dec 12, 2017 Time of Evaluation: 11:19 Blood Pressure Systolic: 115 0: 68 Pulse Rate: 88 Respiratory Rate: 18 Temperature (Fahrenheit): 98.3 O2 Sat by Pulse Oximetry: 97 Airway: patent Nausea: No Vomiting: No Pain Intensity: 0 Hydration Status: adequate Cardiopulmonary Status: STABLE Mental Status/LOC: patient returned to baseline Post-Anesthesia Complications: NONE Follow-up care needed: N/A Heather Beavers MD Dec 12, 2017 14:46
[2017-12-12] MEDS: Ipratropium 0.02% Inh Soln 2.5ml UD HHN SCH (19:35)
[2017-12-12] MEDS: Tamsulosin 0.4mg cap ORAL SCH (21:30)
--- NOTE | 2017-12-12 23:12 | Cardiology Progress Note ---
Assessment/Plan Assessment/Plan 1. Atrial fibrillation with controlled ventricular response, continue metoprolol and diltiazem, decrease digoxin dose, dig level at 1.6, continue warfarin dose by pharmacy, subtherapeutic INR following vitamin K 1mg SQ. 2. Possible chronic HFpEF due to atrial fibrillation. 3. Hypotension, resolved. 4. Hypothyroidism 5. Anemia 6. Hx of CVA Subjective Subjective Atrial fibrillation at 81. Objective Last 24 Hour Vital Signs Date Time Temp Pulse Resp B/P (MAP) Pulse Ox O2 Delivery O2 Flow Rate FiO2 12/12/17 21:30 96 157/78 12/12/17 20:36 96 18 99 Nasal Cannula 3.0 32 12/12/17 20:30 96 18 96 Nasal Cannula 3.0 32 12/12/17 20:00 100.7 95 17 157/78 (104) 98 100.7 12/12/17 19:37 Nasal Cannula 3.0 32 12/12/17 19:37 96 Room Air 3.0 32 12/12/17 19:35 97 18 100 Nasal Cannula 3.0 32 12/12/17 19:30 96 18 96 Nasal Cannula 3.0 32 12/12/17 17:22 81 137/69 12/12/17 16:00 97.9 81 20 137/69 (91) 99 97.9 12/12/17 16:00 76 12/12/17 15:00 88 115/68 12/12/17 14:46 208.9 88 18 97 12/12/17 14:44 208.9 92 18 97 12/12/17 12:33 135/89 12/12/17 12:32 84 135/89 12/12/17 12:31 84 12/12/17 12:31 84 135/89 12/12/17 12:00 97.5 89 21 156/56 (89) 95 97.5 12/12/17 12:00 91 12/12/17 11:45 98 92 18 113/67 97 Nasal Cannula 3 97 98.0 12/12/17 11:45 97.9 84 17 135/89 98 Nasal Cannula 3 97.9 12/12/17 11:30 82 17 142/76 95 Nasal Cannula 3 12/12/17 11:15 88 20 115/68 96 Nasal Cannula 3 12/12/17 11:05 98 92 18 113/67 97 Nasal Cannula 3 97 98.0 12/12/17 09:31 115 18 99 Room Air 21 12/12/17 09:22 115 6 95 Room Air 21 12/12/17 09:22 95 Room Air 21 12/12/17 09:22 Nasal Cannula 2.0 28 12/12/17 08:48 Nasal Cannula 2.0 12/12/17 08:38 98.1 80 20 130/76 (94) 95 98.1 12/12/17 08:00 91 12/12/17 04:00 88 12/12/17 04:00 97.7 69 20 120/67 (84) 95 97.7 12/12/17 02:54 87 123/68 12/12/17 00:00 87 12/12/17 00:00 97.5 87 20 123/68 (86) 95 97.5 Intake and Output 12/11/17 12/12/17 19:00 07:00 Intake Total 75 ml 692 ml Output Total 325 ml 500 ml Balance -250 ml 192 ml IV Total 75 ml 692 ml Output Urine Total 325 ml 500 ml 2D Echo: EF 50%, mod LVH, RVSP 53 mmHg, Grade I LVDD, Mod HI/MR, Small Nellie Eff. Laboratory Tests Test 12/12/17 05:00 White Blood Count 4.3 K/UL (4.8-10.8) L Red Blood Count 3.79 M/UL (4.70-6.10) L Hemoglobin 10.9 G/DL (14.2-18.0) L Hematocrit 33.7 % (42.0-52.0) L Mean Corpuscular Volume 89 FL (80-99) Mean Corpuscular Hemoglobin 28.8 PG (27.0-31.0) Mean Corpuscular Hemoglobin Concent 32.3 G/DL (32.0-36.0) Red Cell Distribution Width 14.9 % (11.6-14.8) H Platelet Count 122 K/UL (150-450) L Mean Platelet Volume 7.4 FL (6.5-10.1) Neutrophils (%) (Auto) 55.4 % (45.0-75.0) Lymphocytes (%) (Auto) 24.2 % (20.0-45.0) Monocytes (%) (Auto) 12.8 % (1.0-10.0) H Eosinophils (%) (Auto) 7.0 % (0.0-3.0) H Basophils (%) (Auto) 0.7 % (0.0-2.0) Prothrombin Time 15.1 SEC (9.30-11.50) H Prothromb Time International Ratio 1.5 (0.9-1.1) H Activated Partial Thromboplast Time 38 SEC (23-33) H Sodium Level 141 MMOL/L (136-145) Potassium Level 3.6 MMOL/L (3.5-5.1) Chloride Level 110 MMOL/L (98-107) H Carbon Dioxide Level 24 MMOL/L (21-32) Anion Gap 8 mmol/L (5-15) Blood Urea Nitrogen 12 mg/dL (7-18) Creatinine 1.5 MG/DL (0.55-1.30) H Estimat Glomerular Filtration Rate mL/min (>60) Glucose Level 117 MG/DL (74-106) H Calcium Level 8.2 MG/DL (8.5-10.1) L Phosphorus Level 2.8 MG/DL (2.5-4.9) Magnesium Level 1.7 MG/DL (1.8-2.4) L Total Bilirubin 0.6 MG/DL (0.2-1.0) Aspartate Amino Transf (AST/SGOT) 18 U/L (15-37) Alanine Aminotransferase (ALT/SGPT) 13 U/L (12-78) Alkaline Phosphatase 47 U/L (46-116) Troponin I 0.059 ng/mL (0.000-0.056) Pro-B-Type Natriuretic Peptide 6184 pg/mL (0-125) H Total Protein 6.0 G/DL (6.4-8.2) L Albumin 2.4 G/DL (3.4-5.0) L Globulin 3.6 g/dL Albumin/Globulin Ratio 0.7 (1.0-2.7) L Digoxin Level 1.6 NG/ML (0.5-2.0) Objective HEENT: Atraumatic and normocephalic. Anicteric. Pupils are equal, round, and reactive to light and accommodation. Extraocular muscles intact. NECK: JVP is less than 5 cm. No carotid bruit. Carotid upstrokes 2+ bilaterally. CARDIOVASCULAR SYSTEM: Normal S1, S2. Irregularly irregular rhythm. No murmurs, gallops, or rubs. PMI is at fourth intercostal space at midclavicular line. LUNGS: Diminished bilaterally. ABDOMEN: Soft, nontender, and nondistended. No hepatosplenomegaly. Positive bowel sounds. EXTREMITIES: No evidence of edema, clubbing, or cyanosis. Tj Crespo MD Dec 12, 2017 23:12
[2017-12-13] VITALS: BP 147/75
[2017-12-13] MEDS: D5 1/2NS 1,000 ML IV SCH (02:30)
[2017-12-13] MEDS: dilTIAZem HCl 90mg tab ORAL SCH ×3 (03:09→13:56)
[2017-12-13 04:00] VITALS: BP 100/58
[2017-12-13 08:04] LABS: BASOPHILS % (AUTO) 0.4 % (0.0-2.0); EOSINOPHILS % (AUTO) 0.4 % (0.0-3.0); HEMATOCRIT 32.6 % (42.0-52.0); HEMOGLOBIN 10.4 G/DL (14.2-18.0); LYMPHOCYTES % (AUTO) 11.9 % (20.0-45.0); MEAN CORPUSCULAR VOLUME 89 FL (80-99); MONOCYTES % (AUTO) 12.3 % (1.0-10.0); NEUTROPHILS % (AUTO) 75.1 % (45.0-75.0); PLATELET COUNT 125 K/UL (150-450); RED BLOOD COUNT 3.65 M/UL (4.70-6.10); RED CELL DISTRIBUTION WIDTH 14.9 % (11.6-14.8); WHITE BLOOD COUNT 9.8 K/UL (4.8-10.8)
[2017-12-13 08:16] VITALS: BP 125/60
[2017-12-13 08:17] LABS: ANION GAP 8 mmol/L (5-15); BLOOD UREA NITROGEN 15 mg/dL (7-18); CALCIUM 8.3 MG/DL (8.5-10.1); CARBON DIOXIDE 24 MMOL/L (21-32); CHLORIDE 108 MMOL/L (98-107); CREATININE 1.9 MG/DL (0.55-1.30); POTASSIUM 4.2 MMOL/L (3.5-5.1); SODIUM 140 MMOL/L (136-145)
[2017-12-13] MEDS: Depakote ER 250mg tab ORAL SCH (08:19)
[2017-12-13] MEDS: Docusate 100mg/10ml Liq GT SCH ×3 (08:21→18:49)
[2017-12-13] MEDS: Budesonide HHN 0.25mg/2ml ud HHN SCH (08:43)
[2017-12-13] MEDS: Ipratropium 0.02% Inh Soln 2.5ml UD HHN SCH ×3 (08:43→19:04)
--- NOTE | 2017-12-13 10:17 | Nephrology Progress Note ---
Assessment/Plan Problem List: (1) Acute on chronic renal failure (2) Atrial fibrillation with tachycardic ventricular rate (3) Seizure disorder (4) Diabetic nephropathy (5) Hypothyroid Assessment: adjust synthroid dose Assessment Renal failure due to pre renal azotemia due to underlying CHF- Cr 1.7 Afib : heart rate remains high Cardiomyopathy Acute CHF others: Acute Asthma/copd exacerbation seizures DM Cerebrovascular accident with right hemiplegia. Congestive heart failure - diastolic with the preserved ejection fraction. Benign prostatic hypertrophy. h/o Pneumonia- SVT , At fib- on anti coag h/o DVT- h/o HypoThyroidism h/o Gout Dementia HTN Plan Now has PEG DC IV mag and phos supplement adding Nitro HR management per Eligibility Services Representative digoxin PO upping the dose increase cardiazem Optimize cardiac and pulmonary status monitor renal parameters- avoid nephrotoxics- flomax adjust bp meds check labs discussed with [facility] IQ[facility] planning LINDA: Nonobstructive stones within the left kidney. Questionable nonobstructive stone in the right kidney. Noncontrast CT May BE of benefit for confirmation. No evidence of obstructive nephropathy. Multiple bilateral renal cysts. Subjective ROS Limited/Unobtainable: No Constitutional: Reports: malaise, weakness Objective Objective Last 24 Hour Vital Signs Date Time Temp Pulse Resp B/P (MAP) Pulse Ox O2 Delivery O2 Flow Rate FiO2 12/13/17 08:52 Nasal Cannula 2.0 12/13/17 08:48 92 18 99 Nasal Cannula 3.0 32 12/13/17 08:48 92 18 99 Nasal Cannula 3.0 32 12/13/17 08:40 94 18 98 Nasal Cannula 3.0 32 12/13/17 08:40 98 Nasal Cannula 3.0 32 12/13/17 08:40 92 18 98 Nasal Cannula 3.0 32 12/13/17 08:40 Nasal Cannula 3.0 32 12/13/17 08:21 82 125/60 12/13/17 08:19 82 125/60 12/13/17 08:18 82 12/13/17 08:16 98.5 82 18 125/60 (81) 96 98.5 12/13/17 08:00 75 12/13/17 04:00 98.9 77 18 100/58 (72) 98 98.9 12/13/17 04:00 67 12/13/17 03:09 69 147/75 12/13/17 00:00 99.2 89 18 147/75 (99) 98 99.2 12/13/17 00:00 69 12/12/17 21:30 96 157/78 12/12/17 21:00 Nasal Cannula 2.0 12/12/17 20:36 96 18 99 Nasal Cannula 3.0 32 12/12/17 20:30 96 18 96 Nasal Cannula 3.0 32 12/12/17 20:00 91 12/12/17 20:00 100.7 95 17 157/78 (104) 98 100.7 12/12/17 19:37 Nasal Cannula 3.0 32 12/12/17 19:37 96 Room Air 3.0 32 12/12/17 19:35 97 18 100 Nasal Cannula 3.0 32 12/12/17 19:30 96 18 96 Nasal Cannula 3.0 32 12/12/17 17:22 81 137/69 12/12/17 16:00 97.9 81 20 137/69 (91) 99 97.9 12/12/17 16:00 76 12/12/17 15:00 88 115/68 12/12/17 14:46 208.9 88 18 97 12/12/17 14:44 208.9 92 18 97 12/12/17 12:33 135/89 12/12/17 12:32 84 135/89 12/12/17 12:31 84 12/12/17 12:31 84 135/89 12/12/17 12:00 97.5 89 21 156/56 (89) 95 97.5 12/12/17 12:00 91 12/12/17 11:45 98 92 18 113/67 97 Nasal Cannula 3 97 98.0 12/12/17 11:45 97.9 84 17 135/89 98 Nasal Cannula 3 97.9 12/12/17 11:30 82 17 142/76 95 Nasal Cannula 3 12/12/17 11:15 88 20 115/68 96 Nasal Cannula 3 12/12/17 11:05 98 92 18 113/67 97 Nasal Cannula 3 97 98.0 Intake and Output 12/12/17 12/13/17 19:00 07:00 Output Total 250 ml Balance -250 ml Output Urine Total 250 ml # Voids 2 Laboratory Tests 12/13/17 07:20: White Blood Count 9.8#, Red Blood Count 3.65L, Hemoglobin 10.4L, Hematocrit 32.6L, Mean Corpuscular Volume 89, Mean Corpuscular Hemoglobin 28.5, Mean Corpuscular Hemoglobin Concent 32.0, Red Cell Distribution Width 14.9H, Platelet Count 125L, Mean Platelet Volume 7.1, Neutrophils (%) (Auto) 75.1H, Lymphocytes (%) (Auto) 11.9L, Monocytes (%) (Auto) 12.3H, Eosinophils (%) (Auto ) 0.4, Basophils (%) (Auto) 0.4, Sodium Level 140, Potassium Level 4.2, Chloride Level 108H, Carbon Dioxide Level 24, Anion Gap 8, Blood Urea Nitrogen 15, Creatinine 1.9H, Estimat Glomerular Filtration Rate , Glucose Level 127H, Calcium Level 8.3L Height (Feet): 6 Height (Inches): 0.00 Weight (Pounds): 218 General Appearance: no apparent distress Cardiovascular: normal rate Respiratory/Chest: decreased breath sounds Abdomen: soft, other - PEG + Objective no change Isaias Noe MD Dec 13, 2017 10:17
[2017-12-13] MEDS: Nitroglycerin Patch 0.4mg TDERMAL SCH (10:42)
--- NOTE | 2017-12-13 11:54 | General Progress Note ---
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 could not tolerate po Objective Last 24 Hour Vital Signs Date Time Temp Pulse Resp B/P (MAP) Pulse Ox O2 Delivery O2 Flow Rate FiO2 12/13/17 10:42 125/60 12/13/17 08:52 Nasal Cannula 2.0 12/13/17 08:48 92 18 99 Nasal Cannula 3.0 32 12/13/17 08:48 92 18 99 Nasal Cannula 3.0 32 12/13/17 08:40 94 18 98 Nasal Cannula 3.0 32 12/13/17 08:40 98 Nasal Cannula 3.0 32 12/13/17 08:40 92 18 98 Nasal Cannula 3.0 32 12/13/17 08:40 Nasal Cannula 3.0 32 12/13/17 08:21 82 125/60 12/13/17 08:19 82 125/60 12/13/17 08:18 82 12/13/17 08:16 98.5 82 18 125/60 (81) 96 98.5 12/13/17 08:00 75 12/13/17 04:00 98.9 77 18 100/58 (72) 98 98.9 12/13/17 04:00 67 12/13/17 03:09 69 147/75 12/13/17 00:00 99.2 89 18 147/75 (99) 98 99.2 12/13/17 00:00 69 12/12/17 21:30 96 157/78 12/12/17 21:00 Nasal Cannula 2.0 12/12/17 20:36 96 18 99 Nasal Cannula 3.0 32 12/12/17 20:30 96 18 96 Nasal Cannula 3.0 32 12/12/17 20:00 91 12/12/17 20:00 100.7 95 17 157/78 (104) 98 100.7 12/12/17 19:37 Nasal Cannula 3.0 32 12/12/17 19:37 96 Room Air 3.0 32 12/12/17 19:35 97 18 100 Nasal Cannula 3.0 32 12/12/17 19:30 96 18 96 Nasal Cannula 3.0 32 12/12/17 17:22 81 137/69 12/12/17 16:00 97.9 81 20 137/69 (91) 99 97.9 12/12/17 16:00 76 12/12/17 15:00 88 115/68 12/12/17 14:46 208.9 88 18 97 12/12/17 14:44 208.9 92 18 97 12/12/17 12:33 135/89 12/12/17 12:32 84 135/89 12/12/17 12:31 84 12/12/17 12:31 84 135/89 12/12/17 12:00 97.5 89 21 156/56 (89) 95 97.5 12/12/17 12:00 91 Intake and Output 12/12/17 12/13/17 19:00 07:00 Output Total 250 ml Balance -250 ml Output Urine Total 250 ml # Voids 2 Laboratory Tests 12/13/17 07:20: White Blood Count 9.8#, Red Blood Count 3.65L, Hemoglobin 10.4L, Hematocrit 32.6L, Mean Corpuscular Volume 89, Mean Corpuscular Hemoglobin 28.5, Mean Corpuscular Hemoglobin Concent 32.0, Red Cell Distribution Width 14.9H, Platelet Count 125L, Mean Platelet Volume 7.1, Neutrophils (%) (Auto) 75.1H, Lymphocytes (%) (Auto) 11.9L, Monocytes (%) (Auto) 12.3H, Eosinophils (%) (Auto ) 0.4, Basophils (%) (Auto) 0.4, Sodium Level 140, Potassium Level 4.2, Chloride Level 108H, Carbon Dioxide Level 24, Anion Gap 8, Blood Urea Nitrogen 15, Creatinine 1.9H, Estimat Glomerular Filtration Rate , Glucose Level 127H, Calcium Level 8.3L Height (Feet): 6 Height (Inches): 0.00 Weight (Pounds): 218 General Appearance: no apparent distress, alert, confused Rufus Velasquez MD Dec 13, 2017 11:54
--- NOTE | 2017-12-13 11:56 | General Progress Note ---
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 tolerated g tube Objective Last 24 Hour Vital Signs Date Time Temp Pulse Resp B/P (MAP) Pulse Ox O2 Delivery O2 Flow Rate FiO2 12/13/17 10:42 125/60 12/13/17 08:52 Nasal Cannula 2.0 12/13/17 08:48 92 18 99 Nasal Cannula 3.0 32 12/13/17 08:48 92 18 99 Nasal Cannula 3.0 32 12/13/17 08:40 94 18 98 Nasal Cannula 3.0 32 12/13/17 08:40 98 Nasal Cannula 3.0 32 12/13/17 08:40 92 18 98 Nasal Cannula 3.0 32 12/13/17 08:40 Nasal Cannula 3.0 32 12/13/17 08:21 82 125/60 12/13/17 08:19 82 125/60 12/13/17 08:18 82 12/13/17 08:16 98.5 82 18 125/60 (81) 96 98.5 12/13/17 08:00 75 12/13/17 04:00 98.9 77 18 100/58 (72) 98 98.9 12/13/17 04:00 67 12/13/17 03:09 69 147/75 12/13/17 00:00 99.2 89 18 147/75 (99) 98 99.2 12/13/17 00:00 69 12/12/17 21:30 96 157/78 12/12/17 21:00 Nasal Cannula 2.0 12/12/17 20:36 96 18 99 Nasal Cannula 3.0 32 12/12/17 20:30 96 18 96 Nasal Cannula 3.0 32 12/12/17 20:00 91 12/12/17 20:00 100.7 95 17 157/78 (104) 98 100.7 12/12/17 19:37 Nasal Cannula 3.0 32 12/12/17 19:37 96 Room Air 3.0 32 12/12/17 19:35 97 18 100 Nasal Cannula 3.0 32 12/12/17 19:30 96 18 96 Nasal Cannula 3.0 32 12/12/17 17:22 81 137/69 12/12/17 16:00 97.9 81 20 137/69 (91) 99 97.9 12/12/17 16:00 76 12/12/17 15:00 88 115/68 12/12/17 14:46 208.9 88 18 97 12/12/17 14:44 208.9 92 18 97 12/12/17 12:33 135/89 12/12/17 12:32 84 135/89 12/12/17 12:31 84 12/12/17 12:31 84 135/89 12/12/17 12:00 97.5 89 21 156/56 (89) 95 97.5 12/12/17 12:00 91 Intake and Output 12/12/17 12/13/17 19:00 07:00 Output Total 250 ml Balance -250 ml Output Urine Total 250 ml # Voids 2 Laboratory Tests 12/13/17 07:20: White Blood Count 9.8#, Red Blood Count 3.65L, Hemoglobin 10.4L, Hematocrit 32.6L, Mean Corpuscular Volume 89, Mean Corpuscular Hemoglobin 28.5, Mean Corpuscular Hemoglobin Concent 32.0, Red Cell Distribution Width 14.9H, Platelet Count 125L, Mean Platelet Volume 7.1, Neutrophils (%) (Auto) 75.1H, Lymphocytes (%) (Auto) 11.9L, Monocytes (%) (Auto) 12.3H, Eosinophils (%) (Auto ) 0.4, Basophils (%) (Auto) 0.4, Sodium Level 140, Potassium Level 4.2, Chloride Level 108H, Carbon Dioxide Level 24, Anion Gap 8, Blood Urea Nitrogen 15, Creatinine 1.9H, Estimat Glomerular Filtration Rate , Glucose Level 127H, Calcium Level 8.3L Height (Feet): 6 Height (Inches): 0.00 Weight (Pounds): 218 General Appearance: no apparent distress, alert, confused Rufus Velasquez MD Dec 13, 2017 11:56
[2017-12-13 12:26] VITALS: BP 111/62
--- NOTE | 2017-12-13 12:58 | GI Progress Note ---
Assessment/Plan Problems: (1) Encounter for PEG (percutaneous endoscopic gastrostomy) ICD Codes: Z43.1 - Encounter for attention to gastrostomy SNOMED: 671977021, 794921828 (2) Malnutrition ICD Codes: E46 - Unspecified protein-calorie malnutrition SNOMED: 11443717 (3) Electrolyte imbalance ICD Codes: E87.8 - Other disorders of electrolyte and fluid balance, not elsewhere classified SNOMED: 832825303 (4) Dysphagia ICD Codes: R13.10 - Dysphagia, unspecified SNOMED: 70755162, 997035230 (5) Dehydration ICD Codes: E86.0 - Dehydration SNOMED: 95215701 (6) L MCA subacute stroke Status: stable Status Narrative Discussed with Dr. Rashid. Assessment/Plan s/p PEG Recommendations: restart Coumadin per primary Abdominal binder. Elevate the head of the bed at all times. G-tube flush. G-tube care. Start tube feeding later today to goal. ppi folate fu labs The patient was seen and examined at bedside and all new and available data was reviewed in the patients chart. I agree with the above findings, impression and plan. (Patient seen earlier today. Signature stamp does not reflect patient encounter time.). - Anders Rashid MD Subjective Gastrointestinal/Abdominal: Reports: no symptoms Subjective limited Objective Last 24 Hour Vital Signs Date Time Temp Pulse Resp B/P (MAP) Pulse Ox O2 Delivery O2 Flow Rate FiO2 12/13/17 12:26 99.0 73 18 111/62 (78) 96 99.0 12/13/17 10:42 125/60 12/13/17 08:52 Nasal Cannula 2.0 12/13/17 08:48 92 18 99 Nasal Cannula 3.0 32 12/13/17 08:48 92 18 99 Nasal Cannula 3.0 32 12/13/17 08:40 94 18 98 Nasal Cannula 3.0 32 12/13/17 08:40 98 Nasal Cannula 3.0 32 12/13/17 08:40 92 18 98 Nasal Cannula 3.0 32 12/13/17 08:40 Nasal Cannula 3.0 32 12/13/17 08:21 82 125/60 12/13/17 08:19 82 125/60 12/13/17 08:18 82 12/13/17 08:16 98.5 82 18 125/60 (81) 96 98.5 12/13/17 08:00 75 12/13/17 04:00 98.9 77 18 100/58 (72) 98 98.9 12/13/17 04:00 67 12/13/17 03:09 69 147/75 12/13/17 00:00 99.2 89 18 147/75 (99) 98 99.2 12/13/17 00:00 69 12/12/17 21:30 96 157/78 12/12/17 21:00 Nasal Cannula 2.0 12/12/17 20:36 96 18 99 Nasal Cannula 3.0 32 12/12/17 20:30 96 18 96 Nasal Cannula 3.0 32 12/12/17 20:00 91 12/12/17 20:00 100.7 95 17 157/78 (104) 98 100.7 12/12/17 19:37 Nasal Cannula 3.0 32 12/12/17 19:37 96 Room Air 3.0 32 12/12/17 19:35 97 18 100 Nasal Cannula 3.0 32 12/12/17 19:30 96 18 96 Nasal Cannula 3.0 32 12/12/17 17:22 81 137/69 12/12/17 16:00 97.9 81 20 137/69 (91) 99 97.9 12/12/17 16:00 76 12/12/17 15:00 88 115/68 12/12/17 14:46 208.9 88 18 97 12/12/17 14:44 208.9 92 18 97 Intake and Output 12/12/17 12/13/17 19:00 07:00 Output Total 250 ml Balance -250 ml Output Urine Total 250 ml # Voids 2 Laboratory Tests Test 12/13/17 07:20 White Blood Count 9.8 K/UL (4.8-10.8) # Red Blood Count 3.65 M/UL (4.70-6.10) L Hemoglobin 10.4 G/DL (14.2-18.0) L Hematocrit 32.6 % (42.0-52.0) L Mean Corpuscular Volume 89 FL (80-99) Mean Corpuscular Hemoglobin 28.5 PG (27.0-31.0) Mean Corpuscular Hemoglobin Concent 32.0 G/DL (32.0-36.0) Red Cell Distribution Width 14.9 % (11.6-14.8) H Platelet Count 125 K/UL (150-450) L Mean Platelet Volume 7.1 FL (6.5-10.1) Neutrophils (%) (Auto) 75.1 % (45.0-75.0) H Lymphocytes (%) (Auto) 11.9 % (20.0-45.0) L Monocytes (%) (Auto) 12.3 % (1.0-10.0) H Eosinophils (%) (Auto) 0.4 % (0.0-3.0) Basophils (%) (Auto) 0.4 % (0.0-2.0) Sodium Level 140 MMOL/L (136-145) Potassium Level 4.2 MMOL/L (3.5-5.1) Chloride Level 108 MMOL/L (98-107) H Carbon Dioxide Level 24 MMOL/L (21-32) Anion Gap 8 mmol/L (5-15) Blood Urea Nitrogen 15 mg/dL (7-18) Creatinine 1.9 MG/DL (0.55-1.30) H Estimat Glomerular Filtration Rate mL/min (>60) Glucose Level 127 MG/DL (74-106) H Calcium Level 8.3 MG/DL (8.5-10.1) L Height (Feet): 6 Height (Inches): 0.00 Weight (Pounds): 218 General Appearance: WD/WN, no apparent distress, alert Cardiovascular: normal rate Respiratory/Chest: normal breath sounds, no respiratory distress Abdominal Exam: normal bowel sounds, non tender, soft, GT site - c/d/i Extremities: non-tender Sydnee Thomas NP Dec 13, 2017 12:58
--- NOTE | 2017-12-13 13:27 | General Progress Note ---
Assessment/Plan Assessment/Plan S: I am doing ok O: appears comfortable. improved sob. Dementia, limited source of information PHYSICAL EXAMINATION: HEAD AND NECK: Atraumatic and normocephalic. CHEST: Bronchial BS, No wheezing, HEART: S1 and S2. IRegular rate and rhythm. ABDOMEN: Soft. No organomegaly. PEG tube in place MUSCULOSKELETAL: Positive for right hemiplegia at baseline. NEUROLOGY: The patient is awake. right side weakness, alert and oriented x2 at baseline. Meds: reviewed and reconciled including Zosyn ASSESSMENT AND PLAN: 1. Acute Hypoxemic RF, CHF exacerbation vs Brochitis vs Chemical aspiration 2. Seizures d/o 2. Dementia. 3. Cerebrovascular accident with right hemiplegia. 4. Atrial fibrillation with controlled rate on therapeutic ATC. 5. Congestive heart failure - diastolic with the preserved ejection fraction. 6. Hypothyroidism. 7. Hypertension. 8. Acute on chronic renal failure, 9. Benign prostatic hypertrophy. 10. Gastrointestinal and deep vein thrombosis prophylaxes. 11. Dysphagi- Severe PLAN OF CARE: stable basal infiltrates, New asp ? Volume overload? Increased the Levothyroxin. S/P PEG t placement. DCP in progress. Subjective Allergies: Coded Allergies: MARYANA INHIBITORS (Unverified Allergy, Unknown, 01/31/14) ARB-ANGIOTENSIN RECEPTOR ANTAGONIST (Unverified Allergy, Unknown, 01/31/14) Objective Last 24 Hour Vital Signs Date Time Temp Pulse Resp B/P (MAP) Pulse Ox O2 Delivery O2 Flow Rate FiO2 12/13/17 13:16 94 18 99 Nasal Cannula 3.0 32 12/13/17 13:09 95 18 98 Nasal Cannula 3.0 32 12/13/17 12:26 99.0 73 18 111/62 (78) 96 99.0 12/13/17 10:42 125/60 12/13/17 08:52 Nasal Cannula 2.0 12/13/17 08:48 92 18 99 Nasal Cannula 3.0 32 12/13/17 08:48 92 18 99 Nasal Cannula 3.0 32 12/13/17 08:40 94 18 98 Nasal Cannula 3.0 32 12/13/17 08:40 98 Nasal Cannula 3.0 32 12/13/17 08:40 92 18 98 Nasal Cannula 3.0 32 12/13/17 08:40 Nasal Cannula 3.0 32 9/18/18 08:21 82 125/60 18 08:19 82 125/60 18 08:18 82 12/13/17 08:16 98.5 82 18 125/60 (81) 96 98.5 12/13/17 08:00 75 12/13/17 04:00 98.9 77 18 100/58 (72) 98 98.9 12/13/17 04:00 67 12/13/17 03:09 69 147/75 12/13/17 00:00 99.2 89 18 147/75 (99) 98 99.2 12/13/17 00:00 69 12/12/17 21:30 96 157/78 12/12/17 21:00 Nasal Cannula 2.0 12/12/17 20:36 96 18 99 Nasal Cannula 3.0 32 12/12/17 20:30 96 18 96 Nasal Cannula 3.0 32 12/12/17 20:00 91 12/12/17 20:00 100.7 95 17 157/78 (104) 98 100.7 12/12/17 19:37 Nasal Cannula 3.0 32 12/12/17 19:37 96 Room Air 3.0 32 12/12/17 19:35 97 18 100 Nasal Cannula 3.0 32 12/12/17 19:30 96 18 96 Nasal Cannula 3.0 32 12/12/17 17:22 81 137/69 12/12/17 16:00 97.9 81 20 137/69 (91) 99 97.9 12/12/17 16:00 76 12/12/17 15:00 88 115/68 12/12/17 14:46 208.9 88 18 97 12/12/17 14:44 208.9 92 18 97 Intake and Output 12/12/17 12/13/17 19:00 07:00 Output Total 250 ml Balance -250 ml Output Urine Total 250 ml # Voids 2 Laboratory Tests 12/13/17 07:20: White Blood Count 9.8#, Red Blood Count 3.65L, Hemoglobin 10.4L, Hematocrit 32.6L, Mean Corpuscular Volume 89, Mean Corpuscular Hemoglobin 28.5, Mean Corpuscular Hemoglobin Concent 32.0, Red Cell Distribution Width 14.9H, Platelet Count 125L, Mean Platelet Volume 7.1, Neutrophils (%) (Auto) 75.1H, Lymphocytes (%) (Auto) 11.9L, Monocytes (%) (Auto) 12.3H, Eosinophils (%) (Auto ) 0.4, Basophils (%) (Auto) 0.4, Sodium Level 140, Potassium Level 4.2, Chloride Level 108H, Carbon Dioxide Level 24, Anion Gap 8, Blood Urea Nitrogen 15, Creatinine 1.9H, Estimat Glomerular Filtration Rate , Glucose Level 127H, Calcium Level 8.3L Height (Feet): 6 Height (Inches): 0.00 Weight (Pounds): 218 Ondina Geiger MD Dec 13, 2017 13:27
--- NOTE | 2017-12-13 14:27 | Cardiology Report ---
APPROVED REPORT EKG Measurement Heart [id number] Atrial fibrillation with a competing junctional pacemaker Nonspecific ST and T wave abnormality Abnormal ECG
[2017-12-13 15:48] VITALS: BP 124/64
--- NOTE | 2017-12-13 16:41 | Infectious Diseases Prog Note ---
Assessment/Plan Problems: (1) HCAP (healthcare-associated pneumonia) Assessment & Plan: with basal infiltrates, improved, S/P zosyn empirically for 6 days, sputum culture grew elizabet spp which is colonization. keep in aspiration precaution , keep HOB> 30 degree all the time (2) Acute on chronic renal insufficiency Assessment & Plan: improving, avoid nephrotoxics, monitor renal function , renal is following (3) At high risk for aspiration Assessment & Plan: aspiration precaution, keep HOB > 30 Degree all the time (4) Acute CHF Assessment & Plan: with dyspnea continue diuresis , monitor daily weight , fluids restriction (5) COPD (chronic obstructive pulmonary disease) Assessment & Plan: with acute exacerbation due to the above, improving , continue nebulizers Subjective Constitutional: Reports: no symptoms HEENT: Reports: no symptoms Respiratory: Reports: no symptoms Breasts: Reports: no symptoms Cardiovascular: Reports: no symptoms Gastrointestinal/Abdominal: Reports: no symptoms Genitourinary: Reports: no symptoms Neurologic: Reports: no symptoms Psychiatric: Reports: no symptoms Skin: Reports: no symptoms Endocrine: Reports: no symptoms Hematologic: Reports: no symptoms Musculoskeletal: Reports: no symptoms Allergies: Coded Allergies: MARYANA INHIBITORS (Unverified Allergy, Unknown, 01/31/14) ARB-ANGIOTENSIN RECEPTOR ANTAGONIST (Unverified Allergy, Unknown, 01/31/14) Subjective he has no cough or SOB , breath better Objective Vital Signs Last 24 Hour Vital Signs Date Time Temp Pulse Resp B/P (MAP) Pulse Ox O2 Delivery O2 Flow Rate FiO2 12/13/17 16:00 72 12/13/17 15:48 98.4 78 18 124/64 (84) 94 98.4 12/13/17 13:56 88 122/71 12/13/17 13:16 94 18 99 Nasal Cannula 3.0 32 12/13/17 13:09 95 18 98 Nasal Cannula 3.0 32 12/13/17 12:26 99.0 73 18 111/62 (78) 96 99.0 12/13/17 12:00 69 12/13/17 10:42 125/60 12/13/17 08:52 Nasal Cannula 2.0 12/13/17 08:48 92 18 99 Nasal Cannula 3.0 32 12/13/17 08:48 92 18 99 Nasal Cannula 3.0 32 12/13/17 08:40 94 18 98 Nasal Cannula 3.0 32 12/13/17 08:40 98 Nasal Cannula 3.0 32 12/13/17 08:40 92 18 98 Nasal Cannula 3.0 32 12/13/17 08:40 Nasal Cannula 3.0 32 12/13/17 08:21 82 125/60 18 08:19 82 125/60 12/13/17 08:18 82 12/13/17 08:16 98.5 82 18 125/60 (81) 96 98.5 12/13/17 08:00 75 12/13/17 04:00 98.9 77 18 100/58 (72) 98 98.9 12/13/17 04:00 67 12/13/17 03:09 69 147/75 12/13/17 00:00 99.2 89 18 147/75 (99) 98 99.2 12/13/17 00:00 69 12/12/17 21:30 96 157/78 12/12/17 21:00 Nasal Cannula 2.0 12/12/17 20:36 96 18 99 Nasal Cannula 3.0 32 12/12/17 20:30 96 18 96 Nasal Cannula 3.0 32 12/12/17 20:00 91 12/12/17 20:00 100.7 95 17 157/78 (104) 98 100.7 12/12/17 19:37 Nasal Cannula 3.0 32 12/12/17 19:37 96 Room Air 3.0 32 12/12/17 19:35 97 18 100 Nasal Cannula 3.0 32 12/12/17 19:30 96 18 96 Nasal Cannula 3.0 32 12/12/17 17:22 81 137/69 Height (Feet): 6 Height (Inches): 0.00 Weight (Pounds): 218 General Appearance: WD/WN, no acute distress HEENT: normocephalic, atraumatic, anicteric, mucous membranes moist, PERRL Respiratory/Chest: chest wall non-tender, lungs clear, normal breath sounds, no respiratory distress, no accessory muscle use Cardiovascular: normal peripheral pulses, normal rate, regular rhythm, no gallop/murmur, no JVD Abdomen: normal bowel sounds, soft, non tender, no organomegaly, non distended , no mass, no scars Genitourinary: normal external genitalia Extremities: no cyanosis Skin: no rash, no lesions Neurologic/Psychiatric: alert, oriented x 3, responsive Lymphatic: no neck adenopathy, no groin adenopathy Musculoskeletal: normal muscle bulk, no effusion Objective Laboratory Tests Test 12/13/17 07:20 White Blood Count 9.8 K/UL (4.8-10.8) # Red Blood Count 3.65 M/UL (4.70-6.10) L Hemoglobin 10.4 G/DL (14.2-18.0) L Hematocrit 32.6 % (42.0-52.0) L Mean Corpuscular Volume 89 FL (80-99) Mean Corpuscular Hemoglobin 28.5 PG (27.0-31.0) Mean Corpuscular Hemoglobin Concent 32.0 G/DL (32.0-36.0) Red Cell Distribution Width 14.9 % (11.6-14.8) H Platelet Count 125 K/UL (150-450) L Mean Platelet Volume 7.1 FL (6.5-10.1) Neutrophils (%) (Auto) 75.1 % (45.0-75.0) H Lymphocytes (%) (Auto) 11.9 % (20.0-45.0) L Monocytes (%) (Auto) 12.3 % (1.0-10.0) H Eosinophils (%) (Auto) 0.4 % (0.0-3.0) Basophils (%) (Auto) 0.4 % (0.0-2.0) Sodium Level 140 MMOL/L (136-145) Potassium Level 4.2 MMOL/L (3.5-5.1) Chloride Level 108 MMOL/L (98-107) H Carbon Dioxide Level 24 MMOL/L (21-32) Anion Gap 8 mmol/L (5-15) Blood Urea Nitrogen 15 mg/dL (7-18) Creatinine 1.9 MG/DL (0.55-1.30) H Estimat Glomerular Filtration Rate mL/min (>60) Glucose Level 127 MG/DL (74-106) H Calcium Level 8.3 MG/DL (8.5-10.1) L Current Medications Medications (Trade) Dose Ordered Sig/Con Route PRN Reason Start Time Stop Time Status Last Admin Dose Admin Acetaminophen (Tylenol) 650 mg Q4H PRN ORAL Mild Pain (Pain Scale 1-3) 12/03/17 23:00 01/02/18 22:59 Budesonide (Pulmicort) 0.25 mg EVERY 12 HOURS HHN 12/04/17 09:00 01/03/18 08:59 12/13/17 08:43 Dextrose (Dextrose 50%) 25 ml STAT PRN IV Hypoglycemia 12/03/17 23:00 01/02/18 22:59 Dextrose (Dextrose 50%) 50 ml STAT PRN IV Hypoglycemia 12/03/17 23:00 01/02/18 22:59 Digoxin (Lanoxin) 0.125 mg DAILY ORAL 12/13/17 09:00 01/12/18 08:59 12/13/17 08:18 Diltiazem HCl (Cardizem) 90 mg Q6H ORAL 12/10/17 15:00 01/09/18 14:59 12/13/17 13:56 Divalproex Sodium (Depakote ER) 250 mg EVERY 12 HOURS ORAL 12/04/17 09:00 01/03/18 08:59 12/13/17 08:19 Docusate Sodium (Colace) 100 mg TID GT 12/13/17 09:00 01/03/18 08:59 12/13/17 13:56 Famotidine (Pepcid) 20 mg BID ORAL 12/04/17 09:00 01/03/18 08:59 12/13/17 08:21 Folic Acid (Folate) 2 mg DAILY ORAL 12/06/17 13:00 01/05/18 12:59 12/13/17 08:19 Guaifenesin (Robitussin) 200 mg Q6H PRN PO cough & congestion 12/04/17 01:30 01/03/18 01:29 12/04/17 15:02 Ipratropium [place] (Atrovent) 500 mcg Q4H PRN HHN Shortness of Breath 12/12/17 13:45 12/17/17 13:44 Ipratropium [place] (Atrovent) 500 mcg TIDRT HHN 12/12/17 19:00 12/17/17 18:59 12/13/17 13:09 Levetiracetam (Keppra) 500 mg Q12HR ORAL 12/04/17 09:00 01/03/18 08:59 12/13/17 08:21 Levothyroxine Sodium (Synthroid) 50 mcg DAILY@0630 ORAL 12/08/17 06:30 01/05/18 06:29 12/13/17 06:40 Metoprolol Tartrate (Lopressor) 200 mg BID ORAL 12/09/17 09:00 01/08/18 08:59 12/13/17 08:19 Nitroglycerin (Ntg) 1 patch Q24H TDERMAL 12/11/17 10:30 01/10/18 10:29 12/13/17 10:42 Tamsulosin HCl (Flomax) 0.4 mg QHS ORAL 12/11/17 21:00 01/03/18 20:59 12/12/17 21:30 Lyssa Strong M.D. Dec 13, 2017 16:41
[2017-12-13] MEDS ORDERED: COUMADIN5 MG ORAL (17:36)
[2017-12-13 20:00] VITALS: BP 144/83
--- NOTE | 2017-12-13 22:12 | Pulmonology Progress Note ---
Assessment/Plan Assessment/Plan ASSESSMENT: The patient is an 82-year-old male with a intermediate resident with a history of chronic obstructive pulmonary disease, congestive heart failure, chronic kidney disease, dementia, prior cerebrovascular accident, and chronic atrial fibrillation, presenting with shortness of breath likely secondary to decompensated heart failure. He is also on Zosyn for possible aspiration and healthcare associated pneumonia. PROBLEM LIST: 1. Acute hypoxemic respiratory failure likely secondary to decompensated heart failure. 2. Bibasilar opacities, likely edema, possible aspiration. 3. Chronic obstructive pulmonary disease. 4. Congestive heart failure with acute decompensated heart failure. 5. Chronic atrial fibrillation. 6. Dementia. 7. Prior cerebrovascular accident. 8. Chronic kidney disease. 9. long-term resident. 10. Dysphagia S/P PEG 12/12 11. Coagulopathy TREATMENT PLAN: 1. Optimize pulmonary hygiene/mobilize as tolerated. 2. PRN O2 3. ATROVENT only HHN's 4. Continue b.i.d. budesonide. 5. Observe off Abx per ID 6. Monitor volumes and renal function, PRN Diuretics 7. NPO, start GTF's 8. DVT PROPHYLAXIS: A/C 9. The patient is Full Code, continue to discuss goals of care. 10. Dispo planning to SNF Subjective Allergies: Coded Allergies: MARYANA INHIBITORS (Unverified Allergy, Unknown, 01/31/14) ARB-ANGIOTENSIN RECEPTOR ANTAGONIST (Unverified Allergy, Unknown, 01/31/14) Subjective Seen earlier Rate controlled AF, VSS, O2 needs stable, S/P PEG, started TF"s Denies cough, no SOB, no F/C Objective Last 24 Hour Vital Signs Date Time Temp Pulse Resp B/P (MAP) Pulse Ox O2 Delivery O2 Flow Rate FiO2 12/13/17 20:00 99.3 76 20 144/83 (103) 96 99.3 12/13/17 19:22 92 18 99 Nasal Cannula 3.0 32 12/13/17 19:07 Nasal Cannula 3.0 32 12/13/17 19:07 97 Nasal Cannula 3.0 32 12/13/17 19:05 92 18 97 Nasal Cannula 3.0 32 12/13/17 18:49 72 124/64 12/13/17 16:00 72 12/13/17 15:48 98.4 78 18 124/64 (84) 94 98.4 12/13/17 13:56 88 122/71 12/13/17 13:16 94 18 99 Nasal Cannula 3.0 32 12/13/17 13:09 95 18 98 Nasal Cannula 3.0 32 12/13/17 12:26 99.0 73 18 111/62 (78) 96 99.0 12/13/17 12:00 69 12/13/17 10:42 125/60 12/13/17 08:52 Nasal Cannula 2.0 12/13/17 08:48 92 18 99 Nasal Cannula 3.0 32 12/13/17 08:48 92 18 99 Nasal Cannula 3.0 32 12/13/17 08:40 94 18 98 Nasal Cannula 3.0 32 12/13/17 08:40 98 Nasal Cannula 3.0 32 12/13/17 08:40 92 18 98 Nasal Cannula 3.0 32 12/13/17 08:40 Nasal Cannula 3.0 32 12/13/17 08:21 82 125/60 12/13/17 08:19 82 125/60 12/13/17 08:18 82 12/13/17 08:16 98.5 82 18 125/60 (81) 96 98.5 12/13/17 08:00 75 12/13/17 04:00 98.9 77 18 100/58 (72) 98 98.9 12/13/17 04:00 67 12/13/17 03:09 69 147/75 12/13/17 00:00 99.2 89 18 147/75 (99) 98 99.2 12/13/17 00:00 69 Intake and Output 12/12/17 12/13/17 19:00 07:00 Output Total 250 ml Balance -250 ml Output Urine Total 250 ml # Voids 2 General Appearance: WD/WN, no acute distress HEENT: normocephalic, atraumatic, anicteric, mucous membranes moist Respiratory/Chest: chest wall non-tender, lungs clear, normal breath sounds, no respiratory distress, no accessory muscle use Cardiovascular: normal peripheral pulses, normal rate, regular rhythm, regularly irregular Abdomen: normal bowel sounds, soft, non tender, no organomegaly, non distended , other - PEG Extremities: no cyanosis, no clubbing, no edema Laboratory Tests 12/13/17 07:20: White Blood Count 9.8#, Red Blood Count 3.65L, Hemoglobin 10.4L, Hematocrit 32.6L, Mean Corpuscular Volume 89, Mean Corpuscular Hemoglobin 28.5, Mean Corpuscular Hemoglobin Concent 32.0, Red Cell Distribution Width 14.9H, Platelet Count 125L, Mean Platelet Volume 7.1, Neutrophils (%) (Auto) 75.1H, Lymphocytes (%) (Auto) 11.9L, Monocytes (%) (Auto) 12.3H, Eosinophils (%) (Auto ) 0.4, Basophils (%) (Auto) 0.4, Sodium Level 140, Potassium Level 4.2, Chloride Level 108H, Carbon Dioxide Level 24, Anion Gap 8, Blood Urea Nitrogen 15, Creatinine 1.9H, Estimat Glomerular Filtration Rate , Glucose Level 127H, Calcium Level 8.3L Luther Carroll MD Dec 13, 2017 22:12
--- NOTE | 2017-12-13 23:56 | Cardiology Progress Note ---
Assessment/Plan Assessment/Plan 1. Atrial fibrillation with controlled ventricular response, continue metoprolol , diltiazem and digoxin dose, continue warfarin, keep INR at 2-3 2. Chronic HFpEF due to atrial fibrillation. 3. Hypotension, resolved. 4. Hypothyroidism 5. Anemia, s/p endoscopy. 6. Hx of CVA Subjective Subjective Atrial fibrillation at 77. Objective Last 24 Hour Vital Signs Date Time Temp Pulse Resp B/P (MAP) Pulse Ox O2 Delivery O2 Flow Rate FiO2 12/13/17 20:00 99.3 76 20 144/83 (103) 96 99.3 12/13/17 19:22 92 18 99 Nasal Cannula 3.0 32 12/13/17 19:07 Nasal Cannula 3.0 32 12/13/17 19:07 97 Nasal Cannula 3.0 32 12/13/17 19:05 92 18 97 Nasal Cannula 3.0 32 12/13/17 18:49 72 124/64 12/13/17 16:00 72 12/13/17 15:48 98.4 78 18 124/64 (84) 94 98.4 12/13/17 13:56 88 122/71 12/13/17 13:16 94 18 99 Nasal Cannula 3.0 32 12/13/17 13:09 95 18 98 Nasal Cannula 3.0 32 12/13/17 12:26 99.0 73 18 111/62 (78) 96 99.0 12/13/17 12:00 69 12/13/17 10:42 125/60 12/13/17 08:52 Nasal Cannula 2.0 12/13/17 08:48 92 18 99 Nasal Cannula 3.0 32 12/13/17 08:48 92 18 99 Nasal Cannula 3.0 32 12/13/17 08:40 94 18 98 Nasal Cannula 3.0 32 12/13/17 08:40 98 Nasal Cannula 3.0 32 12/13/17 08:40 92 18 98 Nasal Cannula 3.0 32 12/13/17 08:40 Nasal Cannula 3.0 32 12/13/17 08:21 82 125/60 12/13/17 08:19 82 125/60 18 08:18 82 12/13/17 08:16 98.5 82 18 125/60 (81) 96 98.5 12/13/17 08:00 75 12/13/17 04:00 98.9 77 18 100/58 (72) 98 98.9 12/13/17 04:00 67 12/13/17 03:09 69 147/75 12/13/17 00:00 99.2 89 18 147/75 (99) 98 99.2 12/13/17 00:00 69 Intake and Output 12/12/17 12/13/17 19:00 07:00 Output Total 250 ml Balance -250 ml Output Urine Total 250 ml # Voids 2 2D Echo: EF 50%, mod LVH, RVSP 53 mmHg, Grade I LVDD, Mod SC/MR, Small Nellie Eff. Laboratory Tests Test 12/13/17 07:20 White Blood Count 9.8 K/UL (4.8-10.8) # Red Blood Count 3.65 M/UL (4.70-6.10) L Hemoglobin 10.4 G/DL (14.2-18.0) L Hematocrit 32.6 % (42.0-52.0) L Mean Corpuscular Volume 89 FL (80-99) Mean Corpuscular Hemoglobin 28.5 PG (27.0-31.0) Mean Corpuscular Hemoglobin Concent 32.0 G/DL (32.0-36.0) Red Cell Distribution Width 14.9 % (11.6-14.8) H Platelet Count 125 K/UL (150-450) L Mean Platelet Volume 7.1 FL (6.5-10.1) Neutrophils (%) (Auto) 75.1 % (45.0-75.0) H Lymphocytes (%) (Auto) 11.9 % (20.0-45.0) L Monocytes (%) (Auto) 12.3 % (1.0-10.0) H Eosinophils (%) (Auto) 0.4 % (0.0-3.0) Basophils (%) (Auto) 0.4 % (0.0-2.0) Sodium Level 140 MMOL/L (136-145) Potassium Level 4.2 MMOL/L (3.5-5.1) Chloride Level 108 MMOL/L (98-107) H Carbon Dioxide Level 24 MMOL/L (21-32) Anion Gap 8 mmol/L (5-15) Blood Urea Nitrogen 15 mg/dL (7-18) Creatinine 1.9 MG/DL (0.55-1.30) H Estimat Glomerular Filtration Rate mL/min (>60) Glucose Level 127 MG/DL (74-106) H Calcium Level 8.3 MG/DL (8.5-10.1) L Objective HEENT: Atraumatic and normocephalic. Anicteric. Pupils are equal, round, and reactive to light and accommodation. Extraocular muscles intact. NECK: JVP is less than 5 cm. No carotid bruit. Carotid upstrokes 2+ bilaterally. CARDIOVASCULAR SYSTEM: Normal S1, S2. Irregularly irregular rhythm. No murmurs, gallops, or rubs. PMI is at fourth intercostal space at midclavicular line. LUNGS: Diminished bilaterally. ABDOMEN: Soft, nontender, and nondistended. No hepatosplenomegaly. Positive bowel sounds. EXTREMITIES: No evidence of edema, clubbing, or cyanosis. Tj Crespo MD Dec 13, 2017 23:56
--- NOTE | 2017-12-15 09:49 | Discharge Summary ---
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 Patient denied chest pain , but had productive cough. Patient required supplemental oxygen , which was placed by paramedics. Laboratory workup revealed no leukocytosis. Hemoglobin 9.1, hematocrit 29.9. BUN 29, creatinine 2.1. Troponin negative. Pro BNP 5736. EKG revealed atrial fibrillation with controlled ventricular response. Chest x-ray revealed hypoventilatory lungs. Nonspecific bilateral basilar opacities, likely representing atelectasis, however infectious or inflammatory process was not excluded. Patient admitted with diagnoses of acute hypoxemic respiratory failure, CHF exacerbation, possible aspiration, possible bronchitis, atrial fibrillation with controlled ventricular response, seizure disorder , dementia ,hypertension, acute on chronic renal failure, BPH, hypothyroidism, chronic dementia. CONSULTANTS: stockroom keeper Dr. Crespo pulmonary Dr. Carroll ID specialist Dr. Strong GI specialist Dr. Rashid central scheduler Dr. Noe psychiatrist [facility] COURSE: Patient admitted to telemetry floor. Overhauler Helper closely followed. Patient started on diuretics. Volumes and cardiorenal parameters were closely monitored. Echocardiogram revealed preserved ejection fraction and right ventricular systolic pressure of 53 consistent with moderate pulmonary hypertension as well as evidence of moderate left ventricular hypertrophy. Patient initially was in atrial fibrillation with controlled ventricular rate , however later on develop tachycardia. Patient was on metoprolol and Cardizem , doses were titrated, and heart rate stabilized. Anticoagulation with Coumadin was continued with goal to keep INR in 2-3 range. Patient exhibited evidence of coagulopathy. Pharmacy was dosing Coumadin, and prior to discharge INR was in therapeutic range. According to stockroom keeper, congestive heart failure with preserved ejection fraction was likely due to atrial fibrillation. Rug Designer closely followed. Supplemental oxygen titrated to keep pulse oximetry above 92%. Pulmonary toilet provided with Atrovent only due to tachycardia around the clock and as needed. DVT prophylaxis provided. Patient was continued on steroid inhaler. Patient completed antibiotics for presumed healthcare associated pneumonia as per ID specialist recommendations. Blood culture were negative. Sputum culture demonstrated Tamara , likely colonized as per ID. Patient completed course of antibiotics, and ID specialist recommended to observe patient off antibiotics. Strict aspiration precautions were maintained. GI specialist closely followed. Patient with evidence of severe dysphagia. Video swallow evaluation showed penetration of nectar thick liquids barium. Patient subsequently undergone EGD and PEG placement on 12/12. Strict aspiration /reflux precautions were maintained. G-tube site care provided. Patient started on G tube feeding as per dietitian recommendation and tube feeding rate was slowly increased to goal. Patient was able to tolerate tube feeding. Abdominal binder was on. Plush Dresser closely followed. Renal parameters and electrolytes were closely monitored , and electrolytes were replaced as needed. Nephrotoxins were avoided as possible, however patient needed initially diuretic. After acute heart failure resolved, recommended spot diuresis with close monitoring of cardiorenal parameters. Renal ultrasound revealed no obstructive uropathy, but showed nonobstructive stones in left kidney and bilateral multiply renal cysts. Prior to discharge, pulse oximetry was stable on 2 L oxygen via nasal cannula. Psychiatrist seen and evaluated patient, and diagnosed patient with encephalopathy secondary to general medical condition along with chronic dementia. According to psychiatrist, patient lacks capacity to make an informed decision. Reality orientation and supportive therapy provided. Patient was started on Depakote and was taken off Remeron. Dietary recommendations implemented in plan of care. Bowel regimen instituted. Supportive care provided. Levothyroxine dose adjusted due to elevated TSH. Patient clinically stabilized and was ready for discharge back to the facility for continuation of care. FINAL DIAGNOSES: Acute hypoxemic respiratory failure, likely secondary to decompensated heart failure Diastolic congestive heart failure with preserved ejection function with acute decompensation Chronic atrial fibrillation with controlled ventricular rate Acute on chronic renal failure Diabetic nephropathy Probably healthcare associated pneumonia Possible aspiration COPD Encephalopathy , secondary to general medical condition Seizure disorder History of CVA with right hemiplegia Hypertension Hypothyroidism Dementia Severe dysphagia Status post EGD and PEG placement BPH DISCHARGE MEDICATIONS: See Medication Reconciliation list. DISCHARGE INSTRUCTIONS: Patient was discharged to the detention facility. Follow up with medical doctor at the facility. I have been assigned to dictate discharge summary for this account. I was not involved in the patient's management. Trish Hardy NP Dec 15, 2017 09:49
== END 2017-12-13 20:20 | DRG 291 ==
LOC: EDBD 19:43 → EMR 19:55 → EDBEDREQ 21:40 → 2E 21:52 → EDBEDREQ 22:00 → 2E 12-05 06:12
PROC: 0DH63UZ Insertion of Feeding Device into Stomach, Percutaneous Approach (ICD-10-PCS; principal; 2017-12-12 10:52)
DX: I13.0 Hypertensive heart and chronic kidney disease with heart failure and stage 1 through stage 4 chronic kidney disease, or unspecified chronic kidney disease (principal); J18.9 Pneumonia, unspecified organism; J96.01 Acute respiratory failure with hypoxia; I50.33 Acute on chronic diastolic (congestive) heart failure; G93.40 Encephalopathy, unspecified; I63.9 Cerebral infarction, unspecified; N17.9 Acute kidney failure, unspecified; I69.351 Hemiplegia and hemiparesis following cerebral infarction affecting right dominant side; J44.1 Chronic obstructive pulmonary disease with (acute) exacerbation; E46 Unspecified protein-calorie malnutrition; E11.22 Type 2 diabetes mellitus with diabetic chronic kidney disease; N18.9 Chronic kidney disease, unspecified; Y95 Nosocomial condition; I48.2 Chronic atrial fibrillation; E11.21 Type 2 diabetes mellitus with diabetic nephropathy; I95.9 Hypotension, unspecified; G40.909 Epilepsy, unspecified, not intractable, without status epilepticus; E03.9 Hypothyroidism, unspecified; F03.90 Unspecified dementia, unspecified severity, without behavioral disturbance, psychotic disturbance, mood disturbance, and anxiety; R13.10 Dysphagia, unspecified; N40.0 Benign prostatic hyperplasia without lower urinary tract symptoms; Z88.8 Allergy status to other drugs, medicaments and biological substances; I25.10 Atherosclerotic heart disease of native coronary artery without angina pectoris; F01.50 Vascular dementia, unspecified severity, without behavioral disturbance, psychotic disturbance, mood disturbance, and anxiety; Z86.14 Personal history of Methicillin resistant Staphylococcus aureus infection; Z79.01 Long term (current) use of anticoagulants; I27.20 Pulmonary hypertension, unspecified; E86.0 Dehydration
CPT/HCPCS: 36415; 71045; 74018; 74230; 76770; 80048; 80053; 80061; 80162; 80164; 80299; 81001; 82550; 82607; 82728; 82746; 82962; 82977; 83036; 83540; 83550; 83735; 83880; 84100; 84443; 84484; 84550; 85025; 85610; 85730; 86140; 87040; 87070; 87081; 87086; 87205; 93005; 93306; 94003; 94150; 94640; 94664; 94760; 99285; J3430